=== PATIENT | female | born 1945 | race Caucasian/White ===

== ENCOUNTER → 2017-05-11 09:45 | Outpatient (CLI) | payer MEDICARE, SELFPAY ==
--- NOTE | 2017-05-11 09:49 | MM_ITS ---
MM Dig screening mamm BI w/CAD CAD Screening ORDERING PHYSICIAN : Jose Mendoza MD PATIENT AGE: 72 years GENDER: Female COMPARISON: Previous mammograms: January 2015, April 2016, December 2012 outside studies INDICATION: Routine screening. No hormones. No new complaints. Noncontributory family history. TECHNIQUE: Standard CC and MLO images were obtained. R2 CAD reviewed. FINDINGS: Minimal fibroglandular elements in both breast with moderate fatty replacement bilaterally. Calcified vascular structures bilaterally again noted. No dominant mass nor suspicious calcifications either breast. RIGHT BREAST:Stable right breast follow-up in one year LEFT BREAST:Left breast appears stable since 2014. No new findings. Follow-up in one year IMPRESSION: Negative Stable bilateral mammogram with no new areas of concern. BI-RADS Category: 1 Negative RECOMMENDED FOLLOW-UP: 1YR - 1 YEAR FOLLOW-UP (A letter has been sent to the patient regarding results of the study.) In
== END ==
PROVIDERS: Family Provider Internal Medicine Adolescent Medicine; PCP Internal Medicine Adolescent Medicine; Visit Provider Internal Medicine Adolescent Medicine
DX: Z12.31 Encounter for screening mammogram for malignant neoplasm of breast (principal)
CPT/HCPCS: 77067

== ENCOUNTER → 2017-05-31 14:25 | Outpatient (CLI) | payer MEDICARE, SELFPAY ==
--- NOTE | 2017-05-31 14:38 | CT_ITS ---
CT abdomen pelvis wo con CLINICAL INDICATION: Follow-up adrenal mass ITS.REASON: RENAL MASS ORDERING PHYSICIAN: Jose Mendoza MD PATIENT AGE: 72 years COMPARISON: 08/08/2013 TECHNIQUE: Axial images obtained with sagittal and coronal reformats. All CT scans at the facility use one or more dose reduction, viz: automated exposure control; ma/kV adjustment per patient size (including targeted exams where dose is matched to indication; i.e. head); or iterative reconstruction technique. PROCEDURE: Oral Contrast: None IV Contrast: None . FINDINGS: No acute finding in the lower or active. There are is however severe coronary artery calcifications. The liver, spleen, and gallbladder have an unremarkable unenhanced appearance. There is mild fatty infiltration of the pancreas with scattered small nodes in the mesentery's. There are bilateral adrenal nodules measuring up to 2.4 cm on the right. Nodularity is present involving the left adrenal gland with 2 nodules present measuring 1.2 and 1 cm. These nodules are unchanged. No new nodules are evident. The right adrenal nodule is slightly more dense than before however, the size is unchanged. The interval stability favors adrenal adenomas. There are bilateral parapelvic renal cysts. A 3 mm nonobstructing stone is present in the upper pole the right kidney. No intestinal obstruction or free air. There is diverticulosis of the descending and sigmoid colon but no evidence of diverticulitis. No evidence of appendicitis. No pelvic mass or focal inflammatory change. There has been prior hysterectomy. There is mild wedging of L1, L3, and L5 unchanged. IMPRESSION: 1. Overall stable CT appearance of the abdomen and pelvis. 2. No change bilateral adrenal nodules consistent with adenomas. 3. Bilateral parapelvic renal cysts with 3 mm nonobstructing stone in the right kidney 4. Colonic diverticulosis
== END ==
PROVIDERS: PCP Internal Medicine Adolescent Medicine; Visit Provider Internal Medicine Adolescent Medicine
DX: N28.89 Other specified disorders of kidney and ureter (principal)
CPT/HCPCS: 74176

== ENCOUNTER → 2018-06-13 08:39 | Outpatient (CLI) | payer MEDICARE, SELFPAY ==
[2018-06-13 15:08] LABS: Blood Urea Nitrogen 23 mg/dL (7-18); Calcium 9.6 mg/dL (8.5-10.1); Carbon Dioxide 28 mmol/L (21.0-32.0); Chloride 105 mmol/L (98-107); Creatinine,Serum 1.31 mg/dL (0.55-1.02); Estimated Glomerular Filt Rate 40 ml/min (>60); GFR (African American) 48 ML/MIN (>60); Glucose 81 mg/dL (74-106); Sodium 143 mmol/L (136-145)
== END ==
PROVIDERS: PCP Internal Medicine Adolescent Medicine; Visit Provider Internal Medicine Adolescent Medicine
DX: E78.5 Hyperlipidemia, unspecified (principal); I25.10 Atherosclerotic heart disease of native coronary artery without angina pectoris; I10 Essential (primary) hypertension; E55.9 Vitamin D deficiency, unspecified
CPT/HCPCS: 36415; 80048

== ENCOUNTER → 2018-06-16 08:45 | Outpatient (CLI) | payer MEDICARE, SELFPAY ==
--- NOTE | 2018-06-16 08:53 | MM_ITS ---
MM Dig screening mamm BI w/CAD ORDERING PHYSICIAN : Jose Mendoza MD PATIENT AGE: 73 years GENDER: Female COMPARISON: April 2017 and April 2016 bilateral screening mammogram Mammogram. No new complaints. Noncontributory family history. Normal TECHNIQUE: Standard CC and MLO images were obtained. R2 CAD reviewed. additional nipple profile cc axillary cc views included FINDINGS: Generalized fatty replacement with low density fatty breast. Very Minimal residual fibroglandular elements bilateral. RIGHT BREAST:No new areas of significant concern 3 or 4 very tiny scattered benign punctate calcifications at the medial right breast are stable LEFT BREAST:No new areas of concern Pacemaker overlying the deep left breast, likely new since last year IMPRESSION: ...... Stable mammogram No new areas of significant concern. Fatty replacement low-density breast. Routine follow-up BI-RADS Category: 1 Negative RECOMMENDED FOLLOW-UP: 1YR 1 YEAR FOLLOW-UP (A letter has been sent to the patient regarding results of the study.)
== END ==
PROVIDERS: PCP Internal Medicine Adolescent Medicine; Visit Provider Internal Medicine Adolescent Medicine
DX: Z12.31 Encounter for screening mammogram for malignant neoplasm of breast (principal)
CPT/HCPCS: 77067

== ENCOUNTER → 2019-08-01 14:20 | Outpatient (CLI) | payer MEDICARE, SELFPAY ==
--- NOTE | 2019-08-01 14:32 | XR_ITS ---
PROCEDURE: XR CERVICAL SPINE 5V CLINICAL INDICATION: CERVICALGIA COMPARISON: , None FINDINGS: C1 through C6 are adequately visualized on the lateral projection and show normal curvature and alignment. C7 appears grossly normal on the AP and oblique views. The neural foramina are not adequately evaluated on the oblique views due to improper positioning. The prevertebral soft tissues are normal and the odontoid is normal. IMPRESSION: No acute findings but neural foramina are not adequately visualized Dictated by: Dr. Cameron Chapa MD 08/01/2019 15:[address] Cameron Chapa MD in [place] 08/01/2019 15:22
--- NOTE | 2019-08-01 14:32 | XR_ITS ---
PROCEDURE: XR SHOULDER RT MIN 2V CLINICAL INDICATION: RT SHOULDER PAIN,CERVICALGIA COMPARISON: CXR1 CHEST-PORTABLE from 12/21/2013 FINDINGS: There is tapering of the distal right clavicle and there is a small bone fragment sitting between the clavicle and acromion process of the scapula superior aspect and these probably are posttraumatic changes. The humeral head right somewhat high in the glenoid probably secondary to some degree of rotator cuff pathology. There are no soft tissue calcifications. The appearance of the AC joint is unchanged from a previous portable chest film 12/21/2013. IMPRESSION: Probable posttraumatic changes right AC joint along with a high-riding humeral head as noted Dictated by: Dr. Cameron Chapa MD 08/01/2019 15:[address] Cameron Chapa MD in [place] 08/01/2019 15:18
== END ==
PROVIDERS: PCP Internal Medicine Adolescent Medicine; Visit Provider Internal Medicine Adolescent Medicine
DX: M25.511 Pain in right shoulder (principal); M54.2 Cervicalgia
CPT/HCPCS: 72050; 73030

== ENCOUNTER 2019-10-03 08:00 | Outpatient (RCR) | payer MEDICARE, SELFPAY | END 2019-10-17 16:37 | disposition home or self-care (01) | LOC: OT 08:00 | PROVIDERS: PCP Internal Medicine Adolescent Medicine; Visit Provider Orthopaedic Surgery | DX: M25.511 Pain in right shoulder (principal); G89.29 Other chronic pain; M19.211 Secondary osteoarthritis, right shoulder; M67.911 Unspecified disorder of synovium and tendon, right shoulder; M75.21 Bicipital tendinitis, right shoulder | CPT/HCPCS: 97010; 97110; 97165; 97530 ==

== ENCOUNTER → 2020-03-05 09:46 | Outpatient (CLI) | payer MEDICARE, SELFPAY ==
--- NOTE | 2020-03-05 09:49 | MM_ITS ---
PROCEDURE: MM DIG SCREENING MAMM BI W/CAD Digital Breast Tomosynthesis Included CLINICAL INDICATION: SCREENING COMPARISON: [facility] DIG MAMM-SCREEN NADYA W/CAD from 05/05/2016 [facility] MM Dig screening mamm BI w/CAD from 05/11/2017 [facility] MM Dig screening mamm BI w/CAD from 06/16/2018 TECHNIQUE: Standard CC and MLO images and 3D Tomosynthesis was obtained. R2 CAD reviewed. FINDINGS: The breasts are composed primarily of fat with scattered fibroglandular densities seen throughout each breast. The findings are bilateral and symmetrical. There is moderate arterial calcification bilaterally. There is a cardiac device projecting over the left axilla. There is a mole marker lower inner quadrant right breast. There is no suspicious lesion and no suspicious microcalcifications. IMPRESSION: Fatty type breast parenchyma with no suspicious lesions seen BI-RAD Category: 2 Benign Finding(s) FOLLOW-UP: 1YR 1 Year Follow-up (A letter has been sent to the patient regarding results of the study.) Dictated by: Dr. Cameron Chapa MD 03/06/2020 12:15 Dr. Cameron Chapa MD in [place] 03/06/2020 12:15
== END ==
PROVIDERS: PCP Internal Medicine Adolescent Medicine; Visit Provider Internal Medicine Adolescent Medicine
DX: Z12.31 Encounter for screening mammogram for malignant neoplasm of breast (principal)
CPT/HCPCS: 77063; 77067

== ENCOUNTER → 2020-03-27 11:06 | Outpatient (CLI) | payer MEDICARE, SELFPAY ==
--- NOTE | 2020-03-27 11:11 | XR_ITS ---
PROCEDURE: XR HIP LT 2-3V W/PELVIS CLINICAL INDICATION: LT HIP PAIN,SACROILTIS COMPARISON: CT ABDPELWO CT abdomen pelvis wo con from 05/31/2017 FINDINGS: There are mild osteoarthritic changes of the left hip. No acute fracture or dislocation is evident. The pelvis is tilted with the right-sided lower than the left. There are degenerative changes in the lumbar spine and there is an intramedullary francis in the right femur. IMPRESSION: Mild osteoarthritis the left hip. Dictated by: Prince Garcia MD 03/27/2020 15:41 Prince Garcia MD in [place] 03/27/2020 15:41
--- NOTE | 2020-03-27 11:11 | XR_ITS ---
PROCEDURE: XR SACROILIAC JOINT BI MIN 3V CLINICAL INDICATION: LT HIP PAIN,SACROILTIS COMPARISON: No exams were available for comparison FINDINGS: There is mild sclerosis along the lower margin of the SI joints on both sides. No fracture or dislocation. No lytic changes. Other findings:None. IMPRESSION: Mild osteoarthritic changes of the SI joints. Dictated by: Prince Garcia MD 03/27/2020 15:45 Prince Garcia MD in [place] 03/27/2020 15:45
== END ==
PROVIDERS: PCP Internal Medicine Adolescent Medicine; Visit Provider Internal Medicine Adolescent Medicine
DX: M25.552 Pain in left hip (principal); M46.1 Sacroiliitis, not elsewhere classified
CPT/HCPCS: 72202; 73502

== ENCOUNTER → 2020-04-15 09:49 | Outpatient (POV) | payer MEDICARE, SELFPAY ==
[2020-04-15 10:05] VITALS: BP 122/78; PULSE 74; RESP 18; O2SAT 98; BMI 35.0
--- NOTE | 2020-04-15 10:35 | HMH.PMCON ---
Assessment and Plan (1) Sacroiliitis Status: Chronic Category: Medical Code(s): M46.1 - Sacroiliitis, not elsewhere classified - Assessment and plan all Dx Assessment and Plan for all problems:: We will schedule the patient for left SI joint injection. She is failed other conservative measures of treatment. I will follow-up with her after her injection reassess her symptoms at that time she has been instructed to call the office if she has any issues prior to her next appointment. Dr. Sorensen has reviewed this note and agrees with this plan of care. This note was dictated using voice recognition software and may contain errors or omissions HPI - Data of Consult Consult date: 04/15/20 Requesting Physician: Odilia Reed APRN Primary Care Provider: Jose Mendoza MD - Consult Narrative Reason for consult: Left SI joint pain History of present illness: Ms. Stone is a 75 year old female who presents today for consultation regards to her left SI joint pain. She has had this pain for 6 weeks. She rates it a 5 out of 10. She is a positive Carmen test SI joint compression test Den's test and distraction test. Patient has tried [place] and tizanidine with no relief. She is had 6 weeks of conservative medication management with no relief. Patient I discussed SI joint injections. She would like to move forward with this. Patient has radiation of pain however it does not past her left knee. CC: Odilia Reed APRN [facility] History I have reviewed the patient's past medical history: Yes Medical History: Reports:: Anxiety, Coronary Artery Disease, Gastroesophageal Reflux Disease(GERD), Hyperlipidemia, Hypertension, Internal Pacemaker Denies:: Cancer, Diabetes Mellitus Type 1, Diabetes Mellitus Type 2, MRSA *Have you ever received a pneumonia vaccine?: Yes *Have you received a flu vaccine this season?: Yes Other Medical History: Reports: Arthritis Laterality Cases: Right: Other Other Surgeries: Yes: Coronary Stent (x4), Hysterectomy-Total, Pacemaker, Tubal Ligation Amputation: No - *Social History Smoking Status: Never smoker Alcohol Intake: never *Occupational Status:: retired Household Members: spouse *Travel in the last 8 weeks: None - Psychiatric History Pschychiatric History:: Reports:: Anxiety Family Hx:: Hyperlipidemia, Diabetes, Hypertension Review of Systems - Review of Systems ROS General: no recent weight change, no fever, no sleep disturbances Respiratory: no cough, no shortness of air, no recurring pulmonary infections Cardiovascular/Peripheral Vascular: No chest pain, No palpitations, no edema, no shortness of breath. Gastrointestinal: no new onset incontinence, normal bowel movements reported Genitourinary: no new onset incontinence Musculoskeletal: [ left SI joint pain, ] Psychiatric: normal mood/ affect, Neurological: [denies new onset balance issues] Meds Home Medications Medication Instructions Recorded Confirmed Type alendronate 70 mg tablet 70 mg PO QWEEK 12/23/17 08/16/19 History aspirin 81 mg tablet,delayed 81 mg PO DAILY 12/23/17 08/16/19 History release baclofen 10 mg tablet 10 mg PO TID 12/23/17 08/16/19 History calcium carbonate 500 mg (1,250 1 tab PO BID 12/23/17 08/16/19 History mg)-vitamin D3 200 unit tablet furosemide 40 mg tablet 20 mg PO DAILY PRN tab 12/23/17 08/16/19 History hydrocodone 7.5 mg-acetaminophen 1 tab PO Q6H 12/23/17 08/16/19 History 325 mg tablet isosorbide mononitrate 60 mg 60 mg PO DAILY 12/23/17 08/16/19 History tablet,extended release 24 hr lisinopril 40 mg tablet 40 mg PO DAILY 12/23/17 08/16/19 History multivitamin,gs-qjhp-bfwpbakd 1 tab PO DAILY 12/23/17 08/16/19 History nebivolol 2.5 mg tablet 2.5 mg PO DAILY 12/23/17 08/16/19 History pantoprazole 40 mg tablet,delayed 40 mg PO BID 12/23/17 08/16/19 History release pravastatin 80 mg tablet 80 mg PO DAILY 12/23/17 08/16/19 History spironolactone 25 mg tablet 12.5
== END ==
PROVIDERS: PCP Internal Medicine Adolescent Medicine; Visit Provider Clinical Nurse Specialist Family Health
DX: M46.1 Sacroiliitis, not elsewhere classified (principal)
CPT/HCPCS: 99202; G0463

== ENCOUNTER 2020-04-26 09:03 | Day surgery (SDC) | payer MEDICARE, SELFPAY ==
[2020-04-26 09:06] VITALS: BP 176/88; BP 184/91; PULSE 75; PULSE 88; RESP 16; RESP 20; TEMP 37.1; O2SAT 98; BMI 35.2
[2020-04-26 09:36] VITALS: BP 185/84; PULSE 82; RESP 18
--- NOTE | 2020-04-26 09:37 | P.PCN_ITS ---
- Procedure Date: 04/26/20 Time: 09:37 Anesthesiologist:: Adi Sorensen MD Complications:: None Pre-procedure Diagnosis:: Sacroiliitis Post-procedure Diagnosis:: Same Indications for Procedure:: Patient is a pleasant 75-year-old white female who we are treating for left- sided hip pain. She is tender over her left SI joint. She is positive Den's test on left side. She is positive Carmen test on left side. She has a positive SI joint compression test on the left side. She has a positive SI distraction test on the left side. We will plan on left SI joint junction under fluoroscopy today. Procedure Details:: Left SI joint injection under fluoroscopy Informed consent was obtained and the risks and benefits of the procedure was explained to the patient. Patient was taken to the procedure room. Patient was placed prone on the procedure table. The left hip was prepped using ChloraPrep. The skin and subcutaneous tissues were anesthetized using lidocaine. I placed a 22-gauge spinal needle into the inferior aspect of the left SI joint. Needle placement was confirmed with dye. After this we injected 5 mL bupivacaine 0.25% and Depo-Medrol 40 mg into the left SI joint. The patient tolerated the procedure well with no complication. Plan and Disposition:: We will follow-up with her in 2 weeks. Will reevaluate symptoms at that time.
[2020-04-26 09:38] VITALS: BP 180/85; PULSE 82; RESP 18; O2SAT 98
== END 2020-04-26 09:50 | disposition home or self-care (01) ==
LOC: SC.PAINP 09:04
PROVIDERS: PCP Internal Medicine Adolescent Medicine; Visit Provider Anesthesiology
DX: M46.1 Sacroiliitis, not elsewhere classified (principal); I25.10 Atherosclerotic heart disease of native coronary artery without angina pectoris; I10 Essential (primary) hypertension; E78.5 Hyperlipidemia, unspecified; K21.9 Gastro-esophageal reflux disease without esophagitis; Z88.8 Allergy status to other drugs, medicaments and biological substances; Z95.818 Presence of other cardiac implants and grafts; Z95.0 Presence of cardiac pacemaker
CPT/HCPCS: 27096; G0260; J1040

== ENCOUNTER → 2020-05-09 08:41 | Outpatient (POV) | payer MEDICARE, SELFPAY ==
--- NOTE | 2020-05-09 09:04 | P.CONS_ITS ---
[facility] Pain Management SOAP Note Subjective:: Patient is a pleasant 75-year-old white female who presents today for follow-up after left SI joint injection. Patient did not get any relief from her left SI joint. She has no updated imaging of her lumbar spine she rates her pain a 7 out of 10 mostly. Most the patient states she is in her low back and is now running down her left leg. We discussed a lumbar MRI given her symptomology I think this would benefit her. She does have a history of degenerative disc disease. ROS General: no recent weight change, no fever, no sleep disturbances Respiratory: no cough, no shortness of air, no recurring pulmonary infections Cardiovascular/Peripheral Vascular: No chest pain, No palpitations, no edema, no shortness of breath. Gastrointestinal: no new onset incontinence, normal bowel movements reported Genitourinary: no new onset incontinence Musculoskeletal: [Back pain, leg pain] Psychiatric: normal mood/ affect, [denies depression], [denies anxiety] Neurological: [denies new onset weakness in extremities], [denies new onset balance issues] Objective:: Physical Exam General: Alert and oriented x3, no acute distress, pleasant and cooperative, [on room air] Lungs: Resps E/U, Symmetrical chest expansion, Eyes: PERRL Musculoskeletal: Flexion and extension of lumbar spine somewhat guarded secondary to pain, deep tendon reflexes normal, strength in upper and lower extremities [5/5], [abnormal gait noted] Neurological: speech clear, military source operations specialist equal, no gross sensory deficits Assessment:: Back pain, leg pain, SI joint pain, sacroiliitis, degenerative disc disease Plan:: We will schedule the patient for a lumbar MRI. She does have a pacemaker if this is not compatible with the MRI we will get a CT scan of her lumbar spine. Patient has not had any recent diagnostic imaging. She is tried and failed conservative measures for the last 6 weeks including SI joint injections, anti- inflammatories, medications. I will follow-up with her after her imaging reassess her symptoms at that time she has been instructed to call the office if she has any issues prior to her next appointment. Dr. Sorensen has reviewed this note and agrees with this plan of care. This note was dictated using voice [employer] software and may contain errors or omissions [facility] History I have reviewed the patient's past medical history: Yes Medical History: Reports:: Anxiety, Coronary Artery Disease, Gastroesophageal Reflux Disease(GERD), Hyperlipidemia, Hypertension, Internal Pacemaker Denies:: Cancer, Diabetes Mellitus Type 1, Diabetes Mellitus Type 2, MRSA, Seizures *Have you ever received a pneumonia vaccine?: No *Have you received a flu vaccine this season?: No Other Medical History: Reports: Arthritis Laterality Cases: Right: Other Other Surgeries: Yes: Cardiac Catheterization (stent placement 4), Coronary Sten t (x4), Hysterectomy-Total, Pacemaker, Tubal Ligation, Other (dental implants) Amputation: No Fractures: Yes (right leg (screws and francis)) - *Social History Smoking Status: Never smoker Alcohol Intake: never *Occupational Status:: retired Housing: house Household Members: spouse *Travel in the last 8 weeks: None - Psychiatric History Pschychiatric History:: Reports:: Anxiety Family Hx:: Hyperlipidemia, Diabetes, Hypertension
[2020-05-09 09:20] VITALS: BP 147/71; PULSE 74; RESP 18; O2SAT 98; BMI 35.0
== END ==
PROVIDERS: PCP Internal Medicine Adolescent Medicine; Visit Provider Clinical Nurse Specialist Family Health
DX: M54.9 Dorsalgia, unspecified (principal); M46.1 Sacroiliitis, not elsewhere classified; M79.606 Pain in leg, unspecified
CPT/HCPCS: 99212; G0463

== ENCOUNTER → 2020-05-16 12:33 | Outpatient (CLI) | payer MEDICARE, SELFPAY ==
--- NOTE | 2020-05-16 12:35 | CT_ITS ---
PROCEDURE: CT LUMBAR SPINE WO CON CLINICAL HISTORY: BACK PAIN COMPARISON: CT ABDPELWO CT abdomen pelvis wo con from 05/31/2017 TECHNIQUE: Axial images obtained with sagittal and coronal reformats. All CT scans at the facility use one or more dose reduction, viz: automated exposure control, ma/kV adjustment per patient size (including targeted exams where dose is matched to indication, i.e. head), or iterative reconstruction technique. FINDINGS: There is generalized osteopenia. Mild wedge compression changes are present at L5-L3 and L1. These areas however had a similar appearance compared to previous abdomen CT. L2-L3: Mild chronic wedge compression changes of L3. Mild bulging disc at L2-L3 with mild distal foraminal narrowing bilaterally. L3-L4: Mild concentric bulging disc with facet ligamentum hypertrophy with mild distal foraminal narrowing. L4-5: Mild chronic wedge compression changes of L5. Bulging disc is present which is eccentric toward the right with a suggestion of a small broad-based central disc protrusion also slightly eccentric toward the right. Facet and ligamentum hypertrophy is present with canal stenosis and moderate bilateral distal foraminal narrowing. Facet arthritic changes are present at this level. There is severe right lateral recess narrowing. L5-S1: Degenerative disc disease with bulging disc slightly eccentric toward the left with facet and ligamentum hypertrophy and mild bilateral foraminal narrowing. Incidental note is made of colonic diverticulosis. Left kidney is small. There is a right adrenal nodule at 2 cm with indeterminate density at approximately 15 Hounsfield units and a small calcification centrally. This nodule however is stable compared to 05/31/2017. IMPRESSION: 1. Chronic wedge compression changes of L1, L3, and L5. No acute fracture apparent. 2. Multilevel lumbar spondylosis. Please see above for detailed description at each level. There is canal stenosis at L4-5. 3. Stable 2 cm right adrenal nodule Dictated by: Prince Garcia MD 05/16/2020 15:23 Prince Garcia MD in [place] 05/16/2020 15:23
== END ==
PROVIDERS: PCP Internal Medicine Adolescent Medicine; Visit Provider Clinical Nurse Specialist Family Health
DX: M54.5 Low back pain (principal)
CPT/HCPCS: 72131

== ENCOUNTER → 2020-05-23 08:42 | Outpatient (POV) | payer MEDICARE, SELFPAY ==
--- NOTE | 2020-05-23 09:53 | HMH.PAINSOAP ---
[facility] Pain Management SOAP Note Subjective:: Patient is a 75-year-old white female who presents today for follow-up after CT. Patient has CT due to her pacemaker. Patient has a compression fracture at L4-L5. According to the CT report it does not look acute. Patient's main pain is in her left leg. She does have a bulging disc at L5-S1 as well?more eccentric to the left. Patient and I discussed epidural injection she is agreeable. She is not on any anticoagulation therapy. Patient is frustrated with her pain level today she is on [place] from her primary care physician I discussed adding gabapentin however she is tried and failed this in the past. Patient I discussed Lyrica 75 mg at bedtime she is agreeable. ROS General: no recent weight change, no fever, no sleep disturbances Respiratory: no cough, no shortness of air, no recurring pulmonary infections Cardiovascular/Peripheral Vascular: No chest pain, No palpitations, no edema, no shortness of breath. Gastrointestinal: no new onset incontinence, normal bowel movements reported Genitourinary: no new onset incontinence Musculoskeletal: Back pain, leg pain Psychiatric: normal mood/ affect Neurological: [denies new onset weakness in extremities], [denies new onset balance issues] Objective:: Physical Exam General: Alert and oriented x3, no acute distress, pleasant and cooperative, [on room air] Lungs: Resps E/U, Symmetrical chest expansion, Eyes: PERRL Musculoskeletal: Flexion and extension of lumbar spine somewhat guarded secondary to pain, deep tendon reflexes normal, strength in upper and lower extremities [5/5], [abnormal gait noted] Neurological: speech clear, chemist proteins equal, no gross sensory deficits Assessment:: Degenerative disc disease lumbar spine lumbar radiculopathy, compression fracture, back pain Plan:: We will set the patient up for an L4-L5 lumbar epidural steroid injection to start with. If the patient does not get relief from this she may be a kyphoplasty candidate in the future. Patient does have a history of osteoporosis. I will follow-up with the patient after her injection reassess her symptoms at that time she has been instructed to call the office if she has any issues prior to her next appointment. We will also start her on Lyrica 75 [address] Sorensen has reviewed this note and agrees with this plan of care. This note was dictated using voice recognition software and may contain errors or omissions [facility] History I have reviewed the patient's past medical history: Yes Medical History: Reports:: Anxiety, Coronary Artery Disease, Gastroesophageal Reflux Disease(GERD), Hyperlipidemia, Hypertension, Internal Pacemaker Denies:: Cancer, Diabetes Mellitus Type 1, Diabetes Mellitus Type 2, MRSA, Seizures *Have you ever received a pneumonia vaccine?: Yes *Have you received a flu vaccine this season?: Yes Other Medical History: Reports: Arthritis Laterality Cases: Right: Other Other Surgeries: Yes: Cardiac Catheterization (stent placement 4), Coronary Stent (x4), Hysterectomy-Total, Pacemaker, Tubal Ligation, Other (dental implants) Amputation: No Fractures: Yes (right leg (screws and francis)) - *Social History Smoking Status: Never smoker Alcohol Intake: never *Occupational Status:: other Housing: house Household Members: spouse *Travel in the last 8 weeks: None - Psychiatric History Pschychiatric History:: Reports:: Anxiety Family Hx:: Hyperlipidemia, Diabetes, Hypertension
[2020-05-23 12:36] VITALS: BP 153/74; PULSE 81; RESP 18; O2SAT 98; BMI 35.0
== END ==
PROVIDERS: Visit Provider Clinical Nurse Specialist Family Health
DX: M51.16 Intervertebral disc disorders with radiculopathy, lumbar region (principal); M80.88XA Other osteoporosis with current pathological fracture, vertebra(e), initial encounter for fracture
CPT/HCPCS: 99212; G0463

== ENCOUNTER 2020-05-31 10:58 | Day surgery (SDC) | payer MEDICARE, SELFPAY ==
[2020-05-31 11:11] VITALS: BP 144/82; PULSE 77; RESP 18; TEMP 36.6; O2SAT 98; BMI 35.2
[2020-05-31 11:43] VITALS: BP 131/92; BP 132/95; PULSE 84; PULSE 85; RESP 18; O2SAT 98
--- NOTE | 2020-05-31 11:46 | HMH.PMPROC ---
- Procedure Date: 05/31/20 Time: 11:46 Anesthesiologist:: Adi Sorensen MD Complications:: None Pre-procedure Diagnosis:: Degenerative disc disease of lumbar spine with lumbar radicular symptoms and increasing left hip and left leg pain. Post-procedure Diagnosis:: Same Indications for Procedure:: This patient is a pleasant 75-year-old white female who we are treating for low back pain and left hip and left leg pain. We will do lumbar epidural steroid injection to see if this will help with her pain symptoms. Procedure Details:: Informed consent was obtained and the risk and benefits of the procedure was explained to the patient. The patient was taken to the procedure room. The patient was placed prone on the procedure table. The patient was prepped and draped in sterile fashion. C-arm fluoroscopy was used to view the lumbar spine. Skin and subcutaneous tissues were anesthetized using lidocaine. I placed an 18-gauge epidural needle and advanced into the L4-L5 interspace using fluoroscopic guidance and [id number] to air. After confirmation of needle placement in the epidural space with dye I injected 2 mL of lidocaine 1.5% with Depo-Medrol 80 mg. Patient tolerated the procedure well with no complications. Plan and Disposition:: We will follow-up with her in 2 weeks. Will reevaluate symptoms at that time.
[2020-05-31 11:58] VITALS: BP 151/74; PULSE 81; RESP 20; O2SAT 98
== END 2020-05-31 11:59 | disposition home or self-care (01) ==
LOC: SC.PAINP 10:59
PROVIDERS: PCP Internal Medicine Adolescent Medicine; Visit Provider Anesthesiology
DX: M51.16 Intervertebral disc disorders with radiculopathy, lumbar region (principal); I25.10 Atherosclerotic heart disease of native coronary artery without angina pectoris; Z95.0 Presence of cardiac pacemaker; I10 Essential (primary) hypertension; E78.5 Hyperlipidemia, unspecified; Z88.8 Allergy status to other drugs, medicaments and biological substances; K21.9 Gastro-esophageal reflux disease without esophagitis
CPT/HCPCS: 62323; J1040; Q9966

== ENCOUNTER → 2020-06-24 09:51 | Outpatient (POV) | payer MEDICARE, SELFPAY ==
[2020-06-24 10:02] VITALS: BP 142/78; PULSE 85; RESP 18; O2SAT 98; BMI 35.0
--- NOTE | 2020-06-24 10:06 | P.CONS_ITS ---
[facility] Pain Management SOAP Note Subjective:: Patient is a 75-year-old white female who presents today for follow-up after lumbar epidural steroid injection. She got no relief. Patient has CT due to her pacemaker. Patient has a compression fracture at L4-L5. According to the CT report it does not look acute. Patient's main pain is in her left leg. She does have a bulging disc at L5-S1 ?more eccentric to the left. Patient states that the Lyrica has been beneficial for her and helps her rest well at nighttime. We discussed increasing this to twice a day. She is also wanting to move forward with the surgical consultation. She would like to be referred to Dr. Schaefer in [place]. She rates her pain today a 9 out of 10. ROS General: no recent weight change, no fever, no sleep disturbances Respiratory: no cough, no shortness of air, no recurring pulmonary infections Cardiovascular/Peripheral Vascular: No chest pain, No palpitations, no edema, no shortness of breath. Gastrointestinal: no new onset incontinence, normal bowel movements reported Genitourinary: no new onset incontinence Musculoskeletal: Back pain, leg pain Psychiatric: normal mood/ affect Neurological: [denies new onset weakness in extremities], [denies new onset balance issues] Objective:: ROS General: no recent weight change, no fever, no sleep disturbances Respiratory: no cough, no shortness of air, no recurring pulmonary infections Cardiovascular/Peripheral Vascular: No chest pain, No palpitations, no edema, no shortness of breath. Gastrointestinal: no new onset incontinence, normal bowel movements reported Genitourinary: no new onset incontinence Musculoskeletal: Back pain, leg pain Psychiatric: normal mood/ affect, Neurological: [denies new onset weakness in extremities], [denies new onset balance issues] Assessment:: degenerative disc disease lumbar spine lumbar radiculopathy and back pain Plan:: We will send the patient to Dr. Schaefer in [place]. Patient is unable to have an MRI due to her pacemaker. Patient does have a recent CT scan. We will continue her Lyrica 75 mg will increase it to twice a day. We will see her after her consultation with Dr. Schaefer. Dr. Sorensen has reviewed this note and agrees with this plan of care. This note was dictated using voice recognition software and may contain errors or omissions [facility] History I have reviewed the patient's past medical history: Yes Medical History: Reports:: Anxiety, Coronary Artery Disease, Gastroesophageal Reflux Disease(GERD), Hyperlipidemia, Hypertension, Internal Pacemaker Denies:: Cancer, Diabetes Mellitus Type 1, Diabetes Mellitus Type 2, MRSA, Seizures *Have you ever received a pneumonia vaccine?: Yes *Have you received a flu vaccine this season?: Yes Other Medical History: Reports: Arthritis. Denies: Blood Transfusion Reaction Laterality Cases: Right: Other Other Surgeries: Yes: Cardiac Catheterization, Coronary Stent, Hysterectomy- Total, Pacemaker, Tubal Ligation, Other (dental implants) Amputation: No Fractures: Yes (right leg (screws and francis)) - *Social History Smoking Status: Never smoker Alcohol Intake: never *Occupational Status:: other Housing: house Household Members: spouse *Travel in the last 8 weeks: None - Psychiatric History Pschychiatric History:: Reports:: Anxiety Family Hx:: Hyperlipidemia, Diabetes, Hypertension
== END ==
PROVIDERS: PCP Internal Medicine Adolescent Medicine; Visit Provider Clinical Nurse Specialist Family Health
DX: M51.16 Intervertebral disc disorders with radiculopathy, lumbar region (principal)
CPT/HCPCS: 99212; G0463

== ENCOUNTER → 2020-09-12 09:00 | Outpatient (CLI) | payer MEDICARE, SELFPAY ==
[2020-09-12 14:08] LABS: Chloride 105 mmol/L (98-107); Potassium 4.5 mmoL/L (3.5-5.1); Sodium 141 mmol/L (136-145)
[2020-09-12 14:11] LABS: Anion Gap 17.5 mEq/L (5-15); Blood Urea Nitrogen 32 mg/dl (7-17); Calcium 9.4 mg/dl (8.4-10.2); Carbon Dioxide 23 mmol/L (22.0-30.0); Estimated Glomerular Filt Rate 40 ml/min (>60); GFR (African American) 48 ML/MIN (>60); Glucose 128 mg/dl (74-100)
== END ==
PROVIDERS: Visit Provider Internal Medicine Adolescent Medicine
DX: I10 Essential (primary) hypertension (principal)
CPT/HCPCS: 36415; 80048

== ENCOUNTER → 2020-10-14 09:23 | Outpatient (POV) | payer MEDICARE, SELFPAY ==
[2020-10-14 09:36] VITALS: BP 172/71; PULSE 69; RESP 18; O2SAT 97; BMI 34.5
--- NOTE | 2020-10-14 09:55 | HMH.PAINSOAP ---
[facility] Pain Management SOAP Note Subjective:: Patient is a 75-year-old white female who presents today for follow-up. The patient recently underwent surgical intervention for her chronic low back pain with Dr. Schaefer in [place]. She says tomorrow will make 6 weeks postoperative. She says that she got excellent relief with her low back pain, however, following the surgery she was noted to have multiple rib to rib fractures following the surgery. The patient says that she is now having bilateral rib pain. She also reports to be having pain from her knee to her foot on the right side since the surgery. This is new for her as well. Patient does have notable swelling to her calf area and into the right ankle. She also has redness noted to the area. She says that she did not have these symptoms prior to the procedure. She is now having difficulty standing or walking on her right lower extremity. She reports she contacted Dr. Kumar's office and was informed that her pain in her right lower extremity is due to her surgery and the pain will subside. Patient says that she feels something different may be going on. She has had a right knee replacement in the past and is concerned that she may be having issues with her hardware. Patient's pain is a 7 out of 10 today. She also reports to be having some worsening shortness of breath since her surgery. Patient has requested an x-ray of her right knee. Review of Systems General: No recent weight changes, no fever, no sleep disturbances Respiratory: No cough, shortness of breath intermittent, no recurring pulmonary infections Cardiovascular/peripheral vascular: No chest pain, no palpitations, no edema, no shortness of breath Gastrointestinal: No new onset incontinence, normal bowel movements reported Genitourinary: No new onset incontinence Musculoskeletal: Right lower extremity pain with swelling and redness Psychiatric: [Normal mood/affect] Neurological: Pain right lower extremity with weakness Objective:: Physical exam General: Alert and oriented x3, no acute distress, pleasant and cooperative, [on room air] Lungs: Respirations even and unlabored, symmetrical chest expansion Eyes: PERRL Musculoskeletal: Flexion and extension of right lower extremity somewhat guarded secondary to pain, strength in upper and lower extremities [5/5], [antalgic gait noted] Neurological: Speech clear, [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 This may help with her acute pain to this area at this time. Right knee pain?the patient has requested a x-ray to determine if there has been a change in her hardware. She is status postn right knee replacement. Right lower extremity pain?patient does have edema along with redness and swelling to this area. She is also reporting to have some intermittent shortness of breath since surgery. We will contact Dr. Poon's office regarding patient's symptoms. Patient may need to undergo a Doppler of her right lower extremity. She is 6 weeks postoperative spine surgery. She does have 2+ pitting edema to her right calf and ankle. She has generalized edema noted to her right knee. Degenerative disc disease lumbar spine with lumbar radiculopathy symptoms?we will refill the patient's Lyrica 75 mg 1 tablet p.o. twice daily. We will give the patient 3 months medication. We will follow up with the patient in 2 weeks to review her x-ray of her right knee and see if the compounding cream has helped. We will contact Dr. Poon's office regarding Doppler of the right lower extremity. His office was contacted today, voicemail was left. Patient has been instructed to contact clinic if she has any concerns before next appointment. [facility] History I h
--- NOTE | 2020-10-14 10:05 | XR_ITS ---
PROCEDURE: XR KNEE RT 3V CLINICAL INDICATION: RT KNEE PAIN COMPARISON: No exams were available for comparison FINDINGS: There is diffuse generalized osteopenia. There is an intramedullary francis in the distal femur 4 stabilizing screws. There is an old distal femur fracture with remodeling of the bone with good alignment. There is a proximal tibial and fibular fracture also with remodeling and good alignment no acute fracture or dislocation is evident. There are mild osteoarthritic changes involving all 3 compartments. Generalized vascular calcification is noted. IMPRESSION: Old distal femur and proximal tib fib fracture status post ORIF distal femur. Generalized osteopenia with mild osteoarthritic change Dictated by: Prince Garcia MD 10/14/2020 12:20 Prince Garcia MD in [place] 10/14/2020 12:20
--- NOTE | 2020-10-14 11:10 | CA_ITS ---
APPROVED REPORT Right Lower Extremity Venous Study for DVT. Flight Agent: Rosa M Tello RVT Indications Lower Extremity Pain: Right Lower Extremity Edema: Right EDEMA/REDNESS RT CALF,S/P BACK SURGERY 6 WKS AGO Risk Factors Obesity Post OP Medications Aspirin Vein Imaging CFV (R): compressive, spontaneous, phasic, augmentation FEM (R): compressive, spontaneous, phasic, augmentation POP (R): compressive, spontaneous, phasic, augmentation PTV (R): Compressible GSV (R): Compressible Peroneals (R):Non-Compressible, Thrombus GAS (R): Compressible Findings Study suggests thrombus of the right peroneal vein, other veins of the right lower extremity are normal. Study suggests no evidence of SVT of the right lower extremity. Conclusion Study suggests thrombus of the right peroneal vein, other veins of the right lower extremity are normal. Study suggests no evidence of SVT of the right lower extremity. Critical Notification Physician Notified Date: 10/14/2020 Time: 11:45 Physician Name: Monse Mendoza's office Electronically signed by : Prince Garcia MD 10/14/2020 16:31:52
== END ==
PROVIDERS: PCP Internal Medicine Adolescent Medicine; Visit Provider Clinical Nurse Specialist Family Health
DX: M51.16 Intervertebral disc disorders with radiculopathy, lumbar region (principal); R06.02 Shortness of breath; M25.561 Pain in right knee; M19.90 Unspecified osteoarthritis, unspecified site
CPT/HCPCS: 73562; 93971; 99212; G0463

== ENCOUNTER → 2020-10-31 09:43 | Outpatient (POV) | payer MEDICARE, SELFPAY ==
[2020-10-31 09:53] VITALS: BP 137/69; PULSE 76; RESP 18; O2SAT 95; BMI 35.4
--- NOTE | 2020-10-31 10:34 | HMH.PAINSOAP ---
[facility] Pain Management SOAP Note Subjective:: Patient is a 75-year-old white male who presents today for follow-up. The patient was previously seen in the clinic on 10/14/2020. She was following up after surgical intervention with Dr. Schaefer. At that appointment, the patient was having right lower extremity pain from the knee to the ankle. Patient was sent for a Doppler study was noted to have a thrombus of the right peroneal vein. Dr. Poon did start the patient on Xarelto. Patient also had an x-ray of her right knee to evaluate hardware placement. Patient does have a history of a right femur fracture as well as a tibia and fibular fracture. Fractures were not acute in nature. The patient's hardware is intact according to the x-ray. Patient says that she is still having low back pain with radiation into her left leg since her surgery. She says that standing and walking worsen the pain. When she is sitting she has no pain. Patient did have rib fractures bilateral sides immediately following the surgery. She was having severe pain and was noted to have rib fractures on both sides after the surgery. She does report a history of severe osteoporosis. Today, the patient's pain is a 6 out of 10. She is scheduled to follow-up with Dr. Schaefer. She is managed with Lyrica 75 mg 1 tablet p.o. twice daily in our clinic. This is helping her somewhat, however, she is still having quite a bit of pain Patient would like to discuss her options at this point if her surgery proves unsuccessful. She has tried and failed conservative therapies of physical therapy for more than 6 weeks, home stretching?limited, and injective therapy. She did undergo neurosurgical intervention as well. At this point, patient has got minimal relief. Review of Systems General: No recent weight changes, no fever, no sleep disturbances Respiratory: No cough, no shortness of air, no recurring pulmonary infections Cardiovascular/peripheral vascular: No chest pain, no palpitations, no edema, no shortness of breath Gastrointestinal: No new onset incontinence, normal bowel movements reported Genitourinary: No new onset incontinence Musculoskeletal: Low back pain with radiation into left leg, right leg pain since surgery Psychiatric: [Normal mood/affect] Neurological: [Denies weakness in extremities], [denies balance issues] Objective:: Physical exam General: Alert and oriented x3, no acute distress, pleasant and cooperative, [on room air] Lungs: Respirations even and unlabored, symmetrical chest expansion Eyes: PERRL Musculoskeletal: Flexion and extension of lumbar [spine] somewhat guarded secondary to pain, strength in upper and lower extremities [5/5], [antalgic gait noted] Neurological: Speech clear, [shaper 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 She is taking Xarelto at this time. She is recovering from rib fractures post surgery. She is scheduled to follow-up with Dr. Schaefer the second week of November. Patient and I did discuss her options in the clinic today. She has tried conservative therapies?physical therapy for more than 6 weeks, home stretching, oral medications, injective therapy, neurosurgical intervention. Patient has gotten minimal relief. At this point, the patient may benefit from a spinal cord stimulator. She was given educational information today regarding the device. We will plan to see her back in the clinic after her appointment with Dr. Schaefer. If she is continuing to have significant pain. We will schedule her for psychological evaluation to see if she is a candidate for spinal cord stimulation. Patient's daughter does have a spinal cord stimulator that does give her relief for neuropathic symptoms as well. Patient has been instructed to contact the clinic with any concerns before t
== END ==
PROVIDERS: PCP Internal Medicine Adolescent Medicine; Visit Provider Clinical Nurse Specialist Family Health
DX: M51.16 Intervertebral disc disorders with radiculopathy, lumbar region (principal)
CPT/HCPCS: 99212; G0463

== ENCOUNTER → 2020-12-05 09:54 | Outpatient (POV) | payer MEDICARE, SELFPAY ==
[2020-12-05 10:10] VITALS: BP 139/74; PULSE 77; RESP 18; O2SAT 95; BMI 35.0
--- NOTE | 2020-12-05 10:23 | HMH.PAINSOAP ---
[facility] Pain Management SOAP Note Subjective:: Patient is a 75-year-old white female who presents today for follow-up. Patient is continued to have significant pain in her low back with radiation into her bilateral lower extremities, worse on the right side. Patient did have surgical intervention with Dr. Schaefer, but her pain does continue. She reports of gotten a corticosteroid shot with Dr. Dudley at Dr. Schaefer's office on Wednesday of this week. She has not gotten any relief at this point. Patient says that she is planning to follow-up with Dr. Schaefer in 4 weeks. She is unsure if she wants to proceed with any type of interventional therapies. She is not interested in oral opiates. She does get Lyrica in our clinic but does not need refills at this time. We do manage her with Lyrica 75 mg 1 tablet p.o. twice daily. Patient has only been taking the medication once daily due to an increase in blood pressure when she initially began the medication. She says she is no longer having blood pressure issues with the medicine. She did undergo surgical intervention with Dr. Kumar and was noted to have rib fractures following the surgery as well as a noted blood clot to her lower extremity. She is currently on Xarelto. Patient has tried gabapentin in the past with no relief. She has tried physical therapy in the past with no relief as well. At last visit the patient I did discuss possible spinal cord stimulation. The patient's daughter does have a stimulator which does work well for her. Review of Systems General: No recent weight changes, no fever, no sleep disturbances Respiratory: No cough, no shortness of air, no recurring pulmonary infections Cardiovascular/peripheral vascular: No chest pain, no palpitations, no edema, no shortness of breath Gastrointestinal: No new onset incontinence, normal bowel movements reported Genitourinary: No new onset incontinence Musculoskeletal: Low back pain with radiation into lower extremities Psychiatric: [Normal mood/affect] Neurological: [Denies weakness in extremities], [denies balance issues] Objective:: Physical exam General: Alert and oriented x3, no acute distress, pleasant and cooperative Lungs: Respirations even and unlabored, symmetrical chest expansion Eyes: PERRL Musculoskeletal: Flexion and extension of lumbar [spine] somewhat guarded secondary to pain, [antalgic gait noted] Neurological: Speech clear, no gross sensory deficit Assessment:: Degenerative disc disease lumbar spine with lumbar radiculopathy symptoms Plan:: Patient is following up with Dr. Schaefer in 4 weeks. She like to postpone any further injective therapy or intervention until discussing her options with Dr. Schaefer. She will contact the clinic if she does decide to proceed with a psychological evaluation for spinal cord stimulation. Patient has been instructed to contact the clinic to schedule that psychological evaluation after her visit with Dr. Schaefer. Patient has been instructed to contact the clinic with any concerns before the next appointment. Dr. Sorensen has reviewed this note and agrees with this plan of care. This note was dictated using voice recognition software and make contain errors or omissions. [facility] History I have reviewed the patient's past medical history: Yes Medical History: Reports:: Anxiety, Coronary Artery Disease, Gastroesophageal Reflux Disease(GERD), Hyperlipidemia, Hypertension, Internal Pacemaker Denies:: Cancer, Diabetes Mellitus Type 1, Diabetes Mellitus Type 2, MRSA, Seizures *Have you ever received a pneumonia vaccine?: Yes *Have you received a flu vaccine this season?: No Other Medical History: Reports: Arthritis. Denies: Blood Transfusion Reaction Laterality Cases: Right: Other Other Surgeries: Yes: Cardiac Catheterization, Coronary Stent, Hysterectomy-Total, Pacemaker, Tubal Ligation, Other (dental implants) Amputation: No Fractures: Yes (right leg (screws and francis)) - *Social History Sm
== END ==
PROVIDERS: Visit Provider Clinical Nurse Specialist Family Health
DX: M51.16 Intervertebral disc disorders with radiculopathy, lumbar region (principal)
CPT/HCPCS: 99212; G0463

== ENCOUNTER → 2021-02-12 13:12 | Outpatient (CLI) | payer MEDICARE, SELFPAY ==
--- NOTE | 2021-02-12 13:18 | XR_ITS ---
PROCEDURE: XR SHOULDER RT MIN 2V CLINICAL INDICATION: RT shoulder pain COMPARISON: CR XR SHOULDER RT MIN 2V from 08/01/2019 FINDINGS: Mild osteoarthritic change glenohumeral joint. No fracture or dislocation. No lytic or blastic change. Periarticular ossicles noted the acromioclavicular joint superiorly. No subacromial stenosis. IMPRESSION: Osteoarthritis right shoulder. Dictated by: Prince Garcia MD 02/12/2021 13:56 Prince Garcia MD in [place] 02/12/2021 13:56
== END ==
PROVIDERS: PCP Internal Medicine Adolescent Medicine; Visit Provider Orthopaedic Surgery
DX: M25.511 Pain in right shoulder (principal)
CPT/HCPCS: 73030

== ENCOUNTER 2021-02-12 15:00 | Outpatient (RCR) | payer MEDICARE, SELFPAY | END 2021-02-12 16:00 | disposition home or self-care (01) | LOC: OT 15:00 | PROVIDERS: Visit Provider Orthopaedic Surgery | DX: G56.01 Carpal tunnel syndrome, right upper limb (principal) | CPT/HCPCS: 97763 ==

== ENCOUNTER → 2021-03-06 10:24 | Outpatient (CLI) | payer MEDICARE, SELFPAY ==
[2021-03-06 10:51] LABS: Basophils # 0.1 K/mm3 (0-0.2); Basophils % 0.6 % (0.1-2.0); Eosinophils # 0.3 K/mm3 (0.0-0.4); Hematocrit 42.4 % (37.0-47.0); Hemoglobin 13.7 g/dL (12.2-16.2); Lymphocytes # 3.2 K/mm3 (0.7-4.5); Lymphocytes % 37.4 % (10-50); Mean Corpuscular HGB Conc 32.2 g/dL (31.8-35.4); Mean Corpuscular Hemoglobin 30.6 pg (27.0-31.2); Mean Corpuscular Volume 95.2 fl (81-99); Mean Platelet Volume 9.8 fl (7.4-10.4); Monocytes # 0.5 K/mm3 (0.1-1.0); Monocytes % 5.6 % (1.7-9.3); Neutrophils # 4.5 K/mm3 (1.8-7.8); Neutrophils % 53.5 % (37.0-80.0); Platelet Count 236 K/mm3 (142-424); Red Blood Count 4.46 M/mm3 (4.20-5.40); Red Cell Distribution Width 14.4 % (11.5-17.5); White Blood Count 8.4 K/mm3 (4.8-10.8)
[2021-03-06 11:06] LABS: Hemoglobin A1C 5.6 % (4.0-6.0)
[2021-03-06 11:29] LABS: Barbiturates Screen,Urine Negative ng/ml (<200)
[2021-03-06 11:30] LABS: Amphetamine/Metha Screen,Urine Negative ng/ml (<1000); Benzodiazepines Screen,Urine Negative ng/ml (<200)
[2021-03-06 11:31] LABS: Cannabinoid Screen,Urine Negative ng/ml (<50); Methadone Screen,Urine Negative ng/ml (<300)
[2021-03-06 11:32] LABS: Cocaine Screen,Urine Negative ng/ml (<300)
[2021-03-06 11:33] LABS: Opiate Screen,Urine Positive ng/ml (<300); Phencyclidine Screen,Urine Negative ng/ml (<25)
[2021-03-06 11:35] LABS: 25-OH Vitamin D, Total 39.5 ng/mL (30-100)
[2021-03-06 11:47] LABS: Chloride 106 mmol/L (98-107); Potassium 4.7 mmoL/L (3.5-5.1); Sodium 143 mmol/L (136-145)
[2021-03-06 11:50] LABS: Alanine Aminotransferase 26 U/L (12-78); Albumin Level 4.6 g/dl (3.5-5.0); Albumin/Globulin Ratio 1.7 (1.1-1.8); Alkaline Phosphatase 81 U/L (38-126); Anion Gap 13.7 mEq/L (5-15); Aspartate Amino Transferase 35 U/L (14-36); Bilirubin,Total 0.9 mg/dl (0.2-1.3); Blood Urea Nitrogen 33 mg/dl (7-17); Calcium 9.9 mg/dl (8.4-10.2); Carbon Dioxide 28 mmol/L (22.0-30.0); Chol/HDL Ratio 3.4 (1-3.5); Cholesterol 211 mg/dl (140-200); Estimated Glomerular Filt Rate 31 ml/min (>60); GFR (African American) 38 ML/MIN (>60); Globulin 2.7 g/dL (1.3-3.2); Glucose 99 mg/dl (74-100); HDL Cholesterol 62 mg/dl (40-60); Total Protein,Serum 7.3 g/dl (6.3-8.2); Triglycerides 158 mg/dl (30-150); VLDL Cholesterol 32 mg/dL (0-40)
== END ==
PROVIDERS: PCP Internal Medicine Adolescent Medicine; Visit Provider Internal Medicine Adolescent Medicine
DX: I25.10 Atherosclerotic heart disease of native coronary artery without angina pectoris (principal); E78.5 Hyperlipidemia, unspecified; G89.4 Chronic pain syndrome; M15.0 Primary generalized (osteo)arthritis; E66.9 Obesity, unspecified; Z68.35 Body mass index [BMI] 35.0-35.9, adult; Z79.899 Other long term (current) drug therapy
CPT/HCPCS: 36415; 80053; 80061; 80305; 82306; 83036; 85025

== ENCOUNTER → 2021-04-08 16:10 | Outpatient (CLI) | payer MEDICARE, SELFPAY ==
--- NOTE | 2021-04-08 16:20 | XR_ITS ---
PROCEDURE INFORMATION: Exam: XR Right Humerus Exam date and time: 04/08/2021 4:20 PM Age: 75 years old Clinical indication: Pain; Upper arm; Right; Additional info: Right upper limb pain TECHNIQUE: Imaging protocol: XR Right humerus. Views: 2 or more views. COMPARISON: CR XR SHOULDER RT MIN 2V 02/12/2021 1:21 PM FINDINGS: Bones/joints: No acute fracture. No dislocation. Chronic widening of the right AC joint is likely postsurgical. Small corticated/chronic ossific bodies are seen near the cranial margin of the AC joint and posterior humeral head. Minimal glenohumeral joint degenerative spurring. Greater tuberosity cortical irregularity suggesting chronic rotator cuff tendinopathy. Soft tissues: Normal. IMPRESSION: 1. No acute finding. 2. Chronic findings as above.
--- NOTE | 2021-04-08 16:22 | XR_ITS ---
PROCEDURE INFORMATION: Exam: XR Right Shoulder Exam date and time: 04/08/2021 4:22 PM Age: 75 years old Clinical indication: Pain; Shoulder; Right; Additional info: Right upper limb pain TECHNIQUE: Imaging protocol: XR Right shoulder. Views: 2 or more views. COMPARISON: CR XR SHOULDER RT MIN 2V 02/12/2021 1:21 PM FINDINGS: Chest: Partially imaged aortic atherosclerosis and pacemaker leads. Bones/joints: Suggested remote prior distal clavicle resection. Small corticated/chronic ossific body near the cranial margin of the widened AC joint. There is minimal glenohumeral joint degenerative spurring. Cortical irregularity of the greater tuberosity of the humerus, compatible with chronic rotator cuff tendinopathy. Soft tissues: Normal. IMPRESSION: 1. No acute finding. 2. Chronic rotator cuff tendinopathy. Postsurgical changes of distal clavicle resection.
== END ==
PROVIDERS: PCP Internal Medicine Adolescent Medicine; Visit Provider Internal Medicine Adolescent Medicine
DX: M79.601 Pain in right arm (principal)
CPT/HCPCS: 73030; 73060

== ENCOUNTER 2021-05-05 10:38 | Outpatient (RCR) | payer MEDICARE, SELFPAY ==
--- NOTE | 2021-05-05 12:27 | HMH.PTOPEV ---
PT Outpatient Evaluation Rehab PT Outpatient Evaluation Start: 05/05/21 11:39 Freq: Status: Active Protocol: Document 05/05/21 11:39 RAINA (Rec: 05/05/21 12:27 [email or web address] [id number]) Electronically Signed By Cody Gallo, LAURA 05/05/21 11:39 Outpatient Therapy Subjective History Subjective History Pt. is a 76 year old female who presents to [facility] Outpatient Physical Therapy Services in [place] for the initial evaluation this date( 05/05/21) w/ c/o subacute and constant RUE edema, ecchymosis , P!, stiffness, weakness, and ADL deficits of insidious onset 6 weeks ago. Pt. reports going to [place], where she rides in a motorized scooter, then coming home and noticing a golf ball size lump in her arm. However, pt. reports noticing her biceps was increasingly sore and warm prior to visiting [place]. Pt. c/o ecchymosis from the RUE shldr. to the had after incident. Pt. reports having symptom relief w/ resting, and prescribed medication. Pt. reports symptoms worsening w/ reaching out and behind her, and trying to use the knob on the recliner to extend the leg rests. Recent diagnostic imaging(radiograph) positive for osteoarthritis per pt. report. Pt. reports having a steroid injection in her shldr . that provided her w/ some symptom relief. Pt. RTMD in 3 months for an annual check-up, but sooner if necessary per pt. report. Current medications include Aspirin, Acetaminophen, Isosorbide Mononitrate, Pravastatin, Lisinopril, Furosemide, Pantoprazole, Xarelto, Bystolic, Detrol, Alendronate, Hydrochlorothiazide, Baclofen , Methoca
== END 2021-07-07 09:50 | disposition home or self-care (01) ==
LOC: PT.CARL 10:38
PROVIDERS: PCP Internal Medicine Adolescent Medicine; Visit Provider Internal Medicine Adolescent Medicine
DX: S46.211A Strain of muscle, fascia and tendon of other parts of biceps, right arm, initial encounter (principal)
CPT/HCPCS: 97163

== ENCOUNTER → 2021-06-16 11:08 | Outpatient (POV) | payer MEDICARE, SELFPAY ==
[2021-06-16 11:30] VITALS: BP 144/91; PULSE 81; RESP 18; TEMP 36.4; O2SAT 96; BMI 35.4
--- NOTE | 2021-06-16 12:20 | HMH.PAINSOAP ---
[facility] Pain Management SOAP Note Subjective:: This patient is a pleasant 75-year-old white female that returns our clinic today for medication refill. Specifically, Lyrica 75 mg 1 p.o. twice daily. We have prescribed for her in the past. Patient states the Lyrica significantly reduced her lower leg symptomology. Restless leg syndrome. Bilateral leg radicular symptoms. Patient has recently taken over custody of her 6-year-old grandson. This is got her extremely active. She is having bilateral leg pain that she describes as constant, dull, aching. Pain intensifies when walking for any length of time. Sitting for any length of time. She rates the pain 6/10. Objective:: Patient is awake alert oriented x3. In no acute distress. Flexion and extension lumbar spine is very guarded secondary to pain in the lumbar spine. Motor strength upper extremities normal. Lower extremities normal. Deep tendon reflexes upper lower extremities normal. Gait is antalgic. Patient requires walker for stability while walking. Assessment:: Degenerative disc disease lumbar spine multilevels. Lumbar radicular symptoms. Plan:: Refilling Lyrica 75 mg 1 p.o. twice daily is appropriate. [facility] History Medical History: Reports:: Anxiety, Coronary Artery Disease, Gastroesophageal Reflux Disease(GERD), Hyperlipidemia, Hypertension, Internal Pacemaker Denies:: Cancer, Diabetes Mellitus Type 1, Diabetes Mellitus Type 2, MRSA, Seizures *Have you ever received a pneumonia vaccine?: Yes *Have you received a flu vaccine this season?: Yes Other Medical History: Reports: Arthritis. Denies: Blood Transfusion Reaction Laterality Cases: Right: Other Other Surgeries: Yes: Cardiac Catheterization, Coronary Stent, Hysterectomy-Total, Pacemaker, Tubal Ligation, Other (dental implants) Amputation: No Fractures: Yes (right leg (screws and francis)) - *Social History Smoking Status: Never smoker Alcohol Intake: never *Occupational Status:: retired Housing: house Household Members: spouse *Travel in the last 8 weeks: None - Psychiatric History Pschychiatric History:: Reports:: Anxiety Family Hx:: Hyperlipidemia, Diabetes, Hypertension
== END ==
PROVIDERS: Visit Provider Nurse Anesthetist, Certified Registered
DX: M51.16 Intervertebral disc disorders with radiculopathy, lumbar region (principal)
CPT/HCPCS: 99212; G0463

== ENCOUNTER → 2021-06-17 09:09 | Outpatient (CLI) | payer MEDICARE, SELFPAY ==
--- NOTE | 2021-06-17 09:14 | MM_ITS ---
PROCEDURE INFORMATION: Exam: MG Bilateral Screening 3D Mammography Exam date and time: 06/17/2021 9:21 AM Age: 76 years old Clinical indication: Screening examination. No family history of breast cancer. TECHNIQUE: Imaging protocol: Bilateral Screening tomosynthesis and 2D mammography including computer-aided detection (CAD) when performed. Limited positioning related to mobility impairment. COMPARISON: 1. MG MM DIG SCREENING MAMM BI W/CAD 03/05/2020 9:50 AM 2. MG SCBI MM Dig screening mamm BI w/CAD 06/16/2018 9:18 AM 3. MG SCBI MM Dig screening mamm BI w/CAD 05/11/2017 9:56 AM 4. MG DMSB DIG MAMM-SCREEN NADYA W/CAD 05/05/2016 9:09 AM FINDINGS: MAMMOGRAPHY: Breast composition: The breasts are almost entirely fatty. Mass: None. Architectural distortion: None. Calcifications: No suspicious calcifications. Asymmetric density: None. Skin thickening: None. Axillary adenopathy: None. Other findings: Left pacemaker battery pack in the axilla, limits evaluation and accentuates the importance of clinical breast exam. IMPRESSION: No mammographic evidence of malignancy. Annual screening is recommended unless otherwise clinically indicated. ASSESSMENT: BI-RADS Category 1: Negative
== END ==
PROVIDERS: PCP Internal Medicine Adolescent Medicine; Visit Provider Internal Medicine Adolescent Medicine
DX: Z12.31 Encounter for screening mammogram for malignant neoplasm of breast (principal)
CPT/HCPCS: 77063; 77067

== ENCOUNTER → 2021-09-01 12:45 | Outpatient (POV) | payer MEDICARE, SELFPAY ==
--- NOTE | 2021-09-01 13:56 | HMH.PAINSOAP ---
[facility] Pain Management SOAP Note Subjective:: Patient is a pleasant 76-year-old female that presents today for clinic for medication refill and follow-up. 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 Today she rates her pain a 7 out of 10. She states her pain is in her left leg. She states the pain radiates from her tailbone down to her foot on the left side, occasionally having right sided pain as well. Denies any injuries or trauma. Patient she has had back surgery in the past by Dr. Schaefer. She states he is told her she is no longer a candidate for future surgeries. She also has a history of polio. Patient is also not a candidate for a stimulator due to her pacemaker. Patient is currently on Xarelto for a previous blood clot. Patient also takes hydrocodone 7.5 mg 4 times a day that is prescribed by Dr. Mendoza. We are managing her pain with Lyrica 75 mg twice a day and compounding cream that both provide significant relief. She denies any side effects from these medications. Patient denies any change in the location or type of pain. Patient is requesting refill of both these medications at today's visit. Her Yuri is [id number]. It has been reviewed and is appropriate Review of Systems: General: No recent weight changes, no fever, no sleep disturbances Respiratory: No cough, no shortness of air, no recurring pulmonary infections Cardiovascular/peripheral vascular: No chest pain, no palpitations, no edema, no shortness of breath Gastrointestinal: No new onset incontinence, normal bowel movements reported Genitourinary: No new onset incontinence Musculoskeletal: Low back pain, left leg pain Psychiatric: [Normal mood/affect] Neurological: [Denies weakness in extremities], [denies balance issues] Objective:: Physical Exam: General: Alert and oriented x3, no acute distress, pleasant and cooperative Lungs: Respirations even and unlabored, symmetrical chest expansion Eyes: PERRL Musculoskeletal: Flexion and extension of lumbar [spine] somewhat guarded secondary to pain, [antalgic gait noted] Neurological: Speech clear, no gross sensory deficit Assessment:: Did not 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 Patient should have refills on her compounding cream, however, if she does not she has been instructed to call the office for a new prescription. Patient had point tenderness at during today's visit. I have discussed with the patient about doing a lumbar epidural steroid injection. Risk and benefits have been discussed with patient. She would like to proceed forward with this injection. We will contact Dr. Mendoza's office regarding stopping the Xarelto prior to the LESI. We will schedule her for a LESI at L4-L5. Patient has been instructed to contact the clinic with any concerns before the next appointment. Dr. Sorensen has reviewed this note and agrees with this plan of care. This note was dictated using voice recognition software and make contain errors or omissions. [facility] History I have reviewed the patient's past medical history: Yes Medical History: Reports:: Anxiety, Coronary Artery Disease, Gastroesophageal Reflux Disease(GERD), Hyperlipidemia, Hypertension, Internal Pacemaker Denies:: Cancer, Diabetes Mellitus Type 1, Diabetes Mellitus Type 2, MRSA, Seizures *Have you ever received a pneumonia vaccine?: Yes *Have you received a flu vaccine this season?: Yes Other Medical History: Reports: Arthritis. Denies: Blood Transfusion Reaction Laterality Cases: Right: Other Other Surgeries: Yes: Cardiac Catheterization, Coronary Stent, Hysterectomy-Total, Pacemaker, Tubal Ligation, Other (dental implants) Amputation: No Fractures: Yes (right leg (screws and francis)) - *Social History Smoking Status: Never smoker Alcohol Intake: never
[2021-09-01 14:00] VITALS: BP 137/73; PULSE 76; RESP 18; TEMP 37; O2SAT 95; BMI 34.4
== END ==
PROVIDERS: Visit Provider Student in an Organized Health Care Education/Training Program
DX: M51.16 Intervertebral disc disorders with radiculopathy, lumbar region (principal); M19.90 Unspecified osteoarthritis, unspecified site
CPT/HCPCS: 99212; G0463

== ENCOUNTER 2021-09-12 10:59 | Day surgery (SDC) | payer MEDICARE, SELFPAY ==
[2021-09-12 11:07] VITALS: BP 138/70; PULSE 71; RESP 18; TEMP 36.6; O2SAT 98; BMI 34.3
[2021-09-12 11:14] VITALS: BP 146/77; PULSE 76; RESP 20
--- NOTE | 2021-09-12 11:19 | HMH.PMPROC ---
- Procedure Date: 09/12/21 Time: 11:19 Anesthesiologist:: Cody Ford CRNA Complications:: None Pre-procedure Diagnosis:: Degenerative disc disease lumbar spine multilevels. Lumbar radiculopathy symptoms. Postlaminectomy syndrome. Lumbar spondylosis. Post-procedure Diagnosis:: Same Indications for Procedure:: Very pleasant 76-year-old female that comes our clinic today for lumbar epidural steroid injection at L4-5 level. Patient is complaining of low back pain as well as bilateral hip and leg radicular symptoms. She rates her pain 7/10. Procedure Details:: Procedure: Lumbar epidural steroid injection under fluoroscopy Informed consent was obtained and the risks and benefits of the procedure were explained to the patient. The patient was taken to the procedure room and noninvasive monitors placed, including noninvasive blood pressure cuff and pulse oximeter. The back was viewed using C-arm Fluoroscopy and prepped using Betadine as a cleansing solution and the L4-L5 interspace was palpated. Skin and subcutaneous tissues were anesthetized using lidocaine 1.5% and a 25-gauge needle. After this, an 18-gauge Touhy epidural needle was placed into the L4-L5 interspace and advanced using fluoroscopic guidance and loss of resistance to air until the epidural space was encountered. After confirmation of needle placement in the epidural space, with dye, a solution containing lidocaine 1.5%, 4 mL and Depo-Medrol 80 mg were incrementally injected into the lumbar epidural space. The patient tolerated the procedure well with no complications. The patient was observed in the Pain Clinic and then discharged home neurologically intact. Plan and Disposition:: Patient was discharged without incident.
[2021-09-12 11:23] VITALS: BP 138/72; PULSE 69; RESP 20; O2SAT 99
== END 2021-09-12 11:24 | disposition home or self-care (01) ==
LOC: SC.PAINP 11:00
PROVIDERS: PCP Internal Medicine Adolescent Medicine; Visit Provider Nurse Anesthetist, Certified Registered
DX: M51.16 Intervertebral disc disorders with radiculopathy, lumbar region (principal); M96.1 Postlaminectomy syndrome, not elsewhere classified; M47.26 Other spondylosis with radiculopathy, lumbar region
CPT/HCPCS: 62323; J1040

== ENCOUNTER → 2021-09-29 10:43 | Outpatient (POV) | payer MEDICARE, SELFPAY ==
[2021-09-29 11:00] VITALS: BP 124/72; PULSE 84; RESP 20; BMI 34.3
--- NOTE | 2021-09-29 12:00 | HMH.PAINSOAP ---
[facility] Pain Management SOAP Note Subjective:: Patient is a pleasant 68-year-old female who presents today for follow-up after a lumbar epidural steroid injection on September 13, 2021. Patient has Been treated for degenerative disc disease of the lumbar spine with lumbar radiculopathy symptoms. After her injection, patient had significant relief of 90 to 100% and rates her pain today 0 out of 10. She has been able to increase her activity since the injection. Denies any issues after the procedure. Patient is also being prescribed pregabalin 75 mg twice a day by our clinic. Denies any side effects from these medications. She has been stable with this medication. She is needing refills on this medication. Yuri [id number] and an active morphine equivalent of 30. Review of Systems: General: No recent weight changes, no fever, no sleep disturbances Respiratory: No cough, no shortness of air, no recurring pulmonary infections Cardiovascular/peripheral vascular: No chest pain, no palpitations, no edema, no shortness of breath Gastrointestinal: No new onset incontinence, normal bowel movements reported Genitourinary: No new onset incontinence Musculoskeletal: Low back pain Psychiatric: [Normal mood/affect] Neurological: [Denies weakness in extremities], [denies balance issues] Objective:: Physical Exam: General: Alert and oriented x3, no acute distress, pleasant and cooperative Lungs: Respirations even and unlabored, symmetrical chest expansion Eyes: PERRL Musculoskeletal: Flexion and extension of lumbar [spine] somewhat guarded secondary to pain, [antalgic gait noted] Neurological: Speech clear, no gross sensory deficit Assessment:: Degenerative disc disease of lumbar spine with lumbar disc left knee symptoms, postlaminectomy syndrome, lumbar spondylosis Plan:: Patient continues to have significant relief after the lumbar epidural steroid injection. We will continue the patient's pregabalin 75 mg twice a day and provided patient with 3 months worth of refill. We will follow this patient in 3 months. Patient has been instructed to contact the clinic with any concerns before the next appointment. Dr. Sorensen has reviewed this note and agrees with this plan of care. This note was dictated using voice recognition software and make contain errors or omissions. [facility] History Medical History: Reports:: Anxiety, Coronary Artery Disease, Gastroesophageal Reflux Disease(GERD), Hyperlipidemia, Hypertension, Internal Pacemaker Denies:: Cancer, Diabetes Mellitus Type 1, Diabetes Mellitus Type 2, MRSA, Seizures *Have you ever received a pneumonia vaccine?: Yes *Have you received a flu vaccine this season?: Yes Other Medical History: Reports: Arthritis. Denies: Blood Transfusion Reaction Laterality Cases: Right: Other Other Surgeries: Yes: Cardiac Catheterization, Coronary Stent, Hysterectomy-Total, Pacemaker, Tubal Ligation, Other (dental implants) Amputation: No Fractures: Yes (right leg (screws and francis)) - *Social History Smoking Status: Never smoker Alcohol Intake: never *Occupational Status:: other Housing: house Household Members: spouse *Travel in the last 8 weeks: None - Psychiatric History Pschychiatric History:: Reports:: Anxiety Family Hx:: No significant family history
== END ==
PROVIDERS: PCP Internal Medicine Adolescent Medicine; Visit Provider Nurse Practitioner Family
DX: M51.36 Other intervertebral disc degeneration, lumbar region (principal); M96.1 Postlaminectomy syndrome, not elsewhere classified; M47.816 Spondylosis without myelopathy or radiculopathy, lumbar region
CPT/HCPCS: 99212; G0463

== ENCOUNTER 2021-10-11 19:24 | Emergency (ER) | payer MEDICARE, SELFPAY ==
[2021-10-11 20:10] VITALS: BP 131/71; PULSE 79; RESP 19; TEMP 37.2; O2SAT 98; BMI 37.5
--- NOTE | 2021-10-11 20:47 | HMH.EDUTC ---
[facility] [place] Clinical Impression: Close exposure to COVID-19 virus Disposition: Home, Self-Care Condition on Discharge: Good Instructions: DI for COVID-19 (Suspected or Confirmed ) Additional Instructions: covid swab was sent to lab, call tomorrow for results. self isolate until test results are known to be negative No sign of a bacterial infection. Likely viral. Viruses can take 7-14 days to run their course. Nasal saline and bulb syringe or nose Bing to remove nasal drainage to help with nasal congestion. Hard to eat, drink, sleep with nasal congestion so important to keep this cleaned out. Monitor temp. Tylenol or Motrin as needed for pain or fever Encourage fluids, water, Gatorade, Powerade, Pedialyte if /toddler/child Warm salt water gargles Warm fluids Sore throat lozenges Sleep elevated Humidifier/vaporizer Follow-up immediately for new or worsening symptoms or no noticeable improvement over the next 48-72 hours. Referrals: Jose Mendoza MD [Primary Care Provider] - Time of Disposition: 20:49 Medical Decision Making - Yuri Inquiry Pt receiving controlled substance: No Vital Signs: 10/11/21 20:10 Temperature 98.9 F Temperature Source Oral Pulse Rate [Right Brachial] 79 Respiratory Rate 19 Blood Pressure [Right Arm] 131/71 Blood Pressure Mean [Right Arm] 91 Blood Pressure Source [Right Arm] Automatic Cuff Blood Pressure Position [Right Arm] Sitting 02 Sat by Pulse Oximetry 98 Oxygen Delivery Method Room Air Orders (Tests/Meds): ORDERS Category Date Time Status Covid-19 Nasal PCR ([facility]) Routine Lab 10/11/21 20:06 Received [facility] [place] HPI - General Chief complaint: Urgent [facility] Stated complaint: exposed to covid, HAYDEN body aches Time Seen by Provider: 10/11/21 20:48 Mode of Arrival: Ambulatory Source of Information: Patient Limitations: No Limitations Description of Symptoms (Recalled from Triage Doc. by RN): PATIENT C/O BODY ACHES THAT STARTED THIS MORNING. RECENTLY EXPOSED TO COVID HEENT Symptoms (Recalled from RN notes): No Resp Symptoms (Recalled from RN notes): No Skin Symptoms (Recalled from RN notes): No MS Symptoms (Recalled from RN notes): No Functional Status (Recalled from RN notes): WNL - History of Present Illness Provider Complaint: 73 yr old female presents for body aches that started this am. grandson has covid - Related Data Home Medications Medication Instructions Recorded Confirmed alendronate 70 mg tablet 70 mg PO QWEEK 12/23/17 09/12/21 aspirin 81 mg tablet,delayed 81 mg PO DAILY 12/23/17 09/12/21 release baclofen 10 mg tablet 10 mg PO TID 12/23/17 09/12/21 calcium carbonate 500 mg-vitamin 1 tab PO BID 12/23/17 09/12/21 D3 5 mcg (200 unit) tablet furosemide 40 mg tablet 20 mg PO DAILY PRN tab 12/23/17 09/12/21 isosorbide mononitrate 60 mg 60 mg PO DAILY 12/23/17 09/12/21 tablet,extended release 24 hr lisinopril 40 mg tablet 40 mg PO DAILY 12/23/17 09/12/21 multivitamin,ji-pzgf-soxhcyuy 1 tab PO DAILY 12/23/17 09/12/21 nebivolol 2.5 mg tablet 2.5 mg PO DAILY 12/23/17 09/12/21 pantoprazole 40 mg tablet,delayed 40 mg PO BID 12/23/17 09/12/21 release pravastatin 80 mg tablet 80 mg PO DAILY 12/23/17 09/12/21 spironolactone 25 mg tablet 12.5 mg PO DAILY tab 12/23/17 09/12/21 Rivaroxaban [Xarelto 20mg Tablet*] 20 mg PO DAILY 09/02/21 09/12/21 Previous Rx's Medication Instructions Recorded Pregabalin [Lyrica 75mg Cap] 75 mg PO BID #60 cap 09/01/21 Pregabalin 75 mg PO BID #60 cap 09/29/21 Allergies Allergy/AdvReac Type Severity Reaction Status Date / Time diltiazem [DILTIAZEM] Allergy Intermediate HEART Verified 09/12/21 11:07 RACING - Worker's Comp Is this a Worker's Comp case?: No [facility] History - Hepatitis A Screen Attestation statement:: This patient has been screened for Hepatitis A risk factors. I have reviewed the patient's past medical history: Yes Medical History: Reports:: Anxiety, Marylou
[2021-10-11 20:48] VITALS: BP 131/71; PULSE 79; RESP 19; TEMP 37.2; O2SAT 98
== END 2021-10-11 20:52 | disposition home or self-care (01) ==
PROVIDERS: Emergency Provider Nurse Practitioner Family; PCP Internal Medicine Adolescent Medicine
DX: U07.1 COVID-19 (principal); R52 Pain, unspecified
CPT/HCPCS: 99212; C9803; G0463; U0003; U0005

== ENCOUNTER → 2021-12-04 10:36 | Outpatient (POV) | payer MEDICARE, SELFPAY ==
[2021-12-04 11:00] VITALS: BP 142/69; PULSE 83; RESP 18; TEMP 36.1; O2SAT 98; BMI 35.4
--- NOTE | 2021-12-04 12:15 | EXP.PAIN.SOA ---
[facility] Pain Management SOAP Note Subjective:: Patient is a pleasant 76-year-old female who presents today for follow-up. Patient is current being treated for degenerative disease of lumbar spine with lumbar radiculopathy symptoms, left hip pain. We have been managing this patient with injective therapy. Her last lumbar epidural steroid injection was in August 2021. She has done well with this injection. She has gotten 90 to 100% of relief after this injection. Today, patient states that she has been having worsening left hip pain that radiates to her left lower extremity. This started about a week ago. She denies any recent falls or traumas. She cannot tolerate any prolonged sitting, standing, and walking. She rates her pain today as 10 out of 10. She is prescribed Crandall 7.5mg 4 times a day by Dr. Mendoza and Lyrica 75mg BID by our clinic. She states that these medications are not helping manage her pain. Denies any loss of bowel and bladder functions. Yuri [id number], MEQ 30. Review of Systems: General: No recent weight changes, no fever, no sleep disturbances Respiratory: No cough, no shortness of air, no recurring pulmonary infections Cardiovascular/peripheral vascular: No chest pain, no palpitations, no edema, no shortness of breath Gastrointestinal: No new onset incontinence, normal bowel movements reported Genitourinary: No new onset incontinence Musculoskeletal: Low back pain, left hip pain Psychiatric: [Normal mood/affect] Neurological: [Denies weakness in extremities], [denies balance issues] Objective:: Physical Exam: General: Alert and oriented x3, no acute distress, pleasant and cooperative Lungs: Respirations even and unlabored, symmetrical chest expansion Eyes: PERRL Musculoskeletal: Flexion and extension of lumbar [spine] somewhat guarded secondary to pain, [antalgic gait noted]; left SI is positive for RUPINDER, Rashaun's, Kilmichael's, Gaenslen's, compression, and distraction. Neurological: Speech clear, no gross sensory deficit Assessment:: Degenerative disease of lumbar spine with lumbar radiculopathy symptoms, left-sided sacroiliitis Plan:: Patient has been having worsening left hip pain that radiates to left lower extremity for the past week. She is tender to palpation around the left SI joint. She does have positive left SI exam. We will schedule this patient for a left SI injection. In 2 weeks, we will also schedule the patient for a lumbar epidural steroid injection at L4-L5. Her last lumbar epidural steroid injection was in August 2021 that provided 90-100% of relief. Patient is on Xarelto. We will reach out to his PCP to see if she can stop this medication 4 days prior to her procedure. Patient has been instructed to contact the clinic with any concerns before the next appointment. Dr. Sorensen has reviewed this note and agrees with this plan of care. This note was dictated using voice recognition software and make contain errors or omissions. PFSH PFSH Social History Smoking Status: Never smoker alcohol intake: never current occupational status: retired Travel in the last 8 weeks: None household members: spouse housing: house current occupational exposures/hazards: No caffeine: Yes
== END ==
PROVIDERS: Visit Provider Student in an Organized Health Care Education/Training Program
DX: M51.16 Intervertebral disc disorders with radiculopathy, lumbar region (principal); M46.1 Sacroiliitis, not elsewhere classified; Z79.899 Other long term (current) drug therapy
CPT/HCPCS: 99212; G0463

== ENCOUNTER 2021-12-09 09:21 | Day surgery (SDC) | payer MEDICARE, SELFPAY ==
[2021-12-09 09:33] VITALS: BP 134/76; PULSE 76; RESP 18; TEMP 36.2; O2SAT 99; BMI 35.4
[2021-12-09 09:42] VITALS: BP 157/70; PULSE 87; RESP 18; O2SAT 98
[2021-12-09 09:43] VITALS: BP 157/70; PULSE 87; RESP 18; O2SAT 98
[2021-12-09 09:47] VITALS: BP 129/72; PULSE 74; RESP 18; O2SAT 99
--- NOTE | 2021-12-09 11:09 | EXP.PAIN.PRO ---
Procedure Date: 12/09/21 Time: 09:30 Anesthesiologist:: Cody Ford CRNA Complications:: None Pre-procedure Diagnosis:: Left sacroiliitis Post-procedure Diagnosis:: Same. Indications for Procedure:: 76Very [id number] female that comes our clinic today with left posterior hip pain. She describes pain as constant, sharp, stabbing. She rates the pain 8/10. She has extreme point tenderness over the left SI joint upon examination. Procedure Details:: Procedure: Left sacroiliac injection under fluoroscopy Informed consent was obtained and the risk and benefits of the procedure were explained to the patient.~ The patient was taken to the procedure room and noninvasive monitors were placed including noninvasive blood pressure cuff and pulse oximeter.~ The patient was placed prone on the procedure table.~ The~ left hip was cleansed using Betadine as a cleansing solution.~ C-arm fluorosocpy was used to view the left SI joint.~ The skin and subcutaneous tissues were anesthetized using Lidocaine 1.5% and a 25-gauge needle.~ After this, a 22-gauge spinal needle was inserted under fluoroscopic guidance into the inferior aspect of the left SI joint.~ Omnipaque dye was injected and a good spread was seen throughout the joint.~ After this, approximately 5 mL of bupivacaine 0.25% and Depo-Medrol 40 mg was incrementally injected into the sacroiliac joint.~ The patient tolerated the procedure well with no complications.~ The patient was observed in the Pain Clinic for a period of 30-45 minutes, then discharged home neurologically intact.~ Plan and Disposition:: Patient was discharged without incident
== END 2021-12-09 09:47 | disposition home or self-care (01) ==
LOC: SC.PAINP 09:22
PROVIDERS: PCP Internal Medicine Adolescent Medicine; Visit Provider Nurse Anesthetist, Certified Registered
DX: M46.1 Sacroiliitis, not elsewhere classified (principal); M51.16 Intervertebral disc disorders with radiculopathy, lumbar region
CPT/HCPCS: 27096; G0260; J1040

== ENCOUNTER 2021-12-23 08:38 | Day surgery (SDC) | payer MEDICARE, SELFPAY ==
[2021-12-23 08:50] VITALS: BP 145/54; PULSE 80; RESP 18; TEMP 36.4; O2SAT 97; BMI 34.9
[2021-12-23 08:59] VITALS: BP 142/76; PULSE 83; RESP 18; O2SAT 97
[2021-12-23 09:00] VITALS: BP 142/76; PULSE 83; RESP 18; O2SAT 97
[2021-12-23 09:06] VITALS: BP 139/64; PULSE 82; RESP 18; O2SAT 97
--- NOTE | 2021-12-23 09:44 | EXP.PAIN.PRO ---
Procedure Date: 12/23/21 Time: 09:30 Anesthesiologist:: Cody Ford CRNA Complications:: None Pre-procedure Diagnosis:: Degenerative disc disease lumbar spine multilevels. Lumbar radiculopathy. Post-procedure Diagnosis:: Same. Indications for Procedure:: Very pleasant 76-year-old female comes to our clinic today for lumbar epidural steroid injection at the L4-5 level. Patient describes low back pain as constant, dull, aching. She rates the pain 7/10. Patient also complained of bilateral hip and leg radicular symptoms at times. Procedure Details:: Procedure: Lumbar epidural steroid injection under fluoroscopy Informed consent was obtained and the risks and benefits of the procedure were explained to the patient. The patient was taken to the procedure room and noninvasive monitors placed, including noninvasive blood pressure cuff and pulse oximeter. The back was viewed using C-arm Fluoroscopy and prepped using Chloraprep as a cleansing solution and the L4-L5 interspace was palpated. Skin and subcutaneous tissues were anesthetized using lidocaine 1.5% and a 25-gauge needle. After this, an 18-gauge Touhy epidural needle was placed into the L4-L5 interspace and advanced using fluoroscopic guidance and loss of resistance to air until the epidural space was encountered. After confirmation of needle placement in the epidural space, with dye, a solution containing normal saline, 3 mL and Depo-Medrol 80 mg were incrementally injected into the lumbar epidural space. The patient tolerated the procedure well with no complications. The patient was observed in the Pain Clinic and then discharged home neurologically intact. Plan and Disposition:: Patient was discharged without incident
== END 2021-12-23 09:06 | disposition home or self-care (01) ==
LOC: SC.PAINP 08:39
PROVIDERS: PCP Internal Medicine Adolescent Medicine; Visit Provider Nurse Anesthetist, Certified Registered
DX: M51.16 Intervertebral disc disorders with radiculopathy, lumbar region (principal)
CPT/HCPCS: 62323; J1040

== ENCOUNTER → 2022-01-01 13:13 | Outpatient (CLI) | payer MEDICARE, SELFPAY ==
--- NOTE | 2022-01-01 13:18 | XR_ITS ---
FINAL REPORT CLINICAL HISTORY: TRAUMATIC HEMATOMA OF L WRIST FINDINGS: 3 views of the left wrist were obtained. There is no acute fracture or dislocation. There are moderate hypertrophic changes at the basilar joint. There is no soft tissue abnormality. IMPRESSION: No acute abnormality. Reviewed, Interpreted and Dictated by Efrain Hylton MD Transcribed by Kingsley yLles Authenticated and [facility]
== END ==
PROVIDERS: PCP Internal Medicine Adolescent Medicine; Visit Provider Internal Medicine Adolescent Medicine
DX: S60.212A Contusion of left wrist, initial encounter (principal)
CPT/HCPCS: 73110

== ENCOUNTER → 2022-01-08 12:38 | Outpatient (POV) | payer MEDICARE, SELFPAY ==
[2022-01-08 13:15] VITALS: BP 126/65; PULSE 81; RESP 18; O2SAT 93; BMI 34.9
--- NOTE | 2022-01-08 13:22 | A.OFFVIS_ITS ---
[facility] Pain Management SOAP Note Subjective:: Patient is a pleasant 76-year-old female who presents today for follow-up of lumbar epidural steroid injection at L4-L5 on 12/23/2021. We are currently treating the patient for degenerative disc disease of lumbar spine with lumbar radiculopathy symptoms, left hip pain. Today the patient states that she has had significant improvement of at least 50% following this injection and feels like it is still continuing to provide relief. Today patient rates her pain a 4 out of 10. Patient denies any new trauma or injury. Patient denies any change in location or type of pain she experiences. Patient is currently prescribed [place] 7.5 mg 4 times a day from Dr. Vee's office and pregabalin 75 mg twice daily from our office. Patient denies any side effects from these medications. She states these medications do help her pain symptoms. She is requesting a refill of her pregabalin. Her Yuri is [id number]. It has been reviewed and appropriate. Review of Systems: General: No recent weight changes, no fever, no sleep disturbances Respiratory: No cough, no shortness of air, no recurring pulmonary infections Cardiovascular/peripheral vascular: No chest pain, no palpitations, no edema, no shortness of breath Gastrointestinal: No new onset incontinence, normal bowel movements reported Genitourinary: No new onset incontinence Musculoskeletal: Low back pain, leg pain Psychiatric: [Normal mood/affect] Neurological: [Denies weakness in extremities], [denies balance issues] Objective:: Physical Exam: General: Alert and oriented x3, no acute distress, pleasant and cooperative Lungs: Respirations even and unlabored, symmetrical chest expansion Eyes: PERRL Musculoskeletal: Flexion and extension of lumbar [spine] somewhat guarded secondary to pain, [antalgic gait noted] Neurological: Speech clear, no gross sensory deficit Assessment:: Degenerative disc disease of lumbar spine with lumbar radiculopathy symptoms, left hip pain Plan:: Patient has had significant improvement of her symptoms following her last lumbar epidural steroid injection. At this time the patient does not require any additional injective therapy. I will refill the patient's pregabalin 75 mg twice a day and provide a 1 month supply of this medication. Patient will follow-up in 1 month via telehealth visit for reevaluation of symptoms, medication refill and follow-up. Patient has been instructed to contact the clinic with any concerns before the next appointment. Dr. Sorensen has reviewed this note and agrees with this plan of care. This note was dictated using voice recognition software and make contain errors or omissions. [facility] Medical History History of pacemaker Hyperlipidemia Hypertension Surgical History History of hip surgery History of hysterectomy History of shoulder surgery Family History Other No significant family history Social History Smoking Status: Never smoker alcohol intake: never current occupational status: retired Travel in the last 8 weeks: None household members: spouse housing: house current occupational exposures/hazards: No caffeine: Yes
== END | disposition home or self-care (01) ==
PROVIDERS: PCP Internal Medicine Adolescent Medicine; Visit Provider Nurse Practitioner Family
DX: M51.16 Intervertebral disc disorders with radiculopathy, lumbar region (principal); M25.552 Pain in left hip
CPT/HCPCS: 99212; G0463

== ENCOUNTER → 2022-03-06 10:03 | Outpatient (CLI) | payer MEDICARE, SELFPAY ==
[2022-03-06 11:10] LABS: Basophils # 0.1 K/mm3 (0-0.2); Basophils % 1.4 % (0.1-2.0); Eosinophils # 0.2 K/mm3 (0.0-0.4); Eosinophils % 3.1 % (0.1-12.0); Hematocrit 42.9 % (37.0-47.0); Hemoglobin 12.9 g/dL (12.2-16.2); Lymphocytes # 3.1 K/mm3 (0.7-4.5); Lymphocytes % 42.7 % (10-50); Mean Corpuscular Hemoglobin 29.3 pg (27.0-31.2); Mean Corpuscular Volume 97.8 fl (81-99); Mean Platelet Volume 10.2 fl (7.4-10.4); Monocytes # 0.5 K/mm3 (0.1-1.0); Monocytes % 7.4 % (1.7-9.3); Neutrophils # 3.2 K/mm3 (1.8-7.8); Neutrophils % 45.4 % (37.0-80.0); Platelet Count 247 K/mm3 (142-424); Red Blood Count 4.39 M/mm3 (4.20-5.40); Red Cell Distribution Width 14.2 % (11.5-17.5); White Blood Count 7.1 K/mm3 (4.8-10.8)
[2022-03-06 11:54] LABS: Alanine Aminotransferase 17 U/L (12-78); Albumin/Globulin Ratio 1.6 (1.1-1.8); Alkaline Phosphatase 73 U/L (38-126); Anion Gap 11.9 mEq/L (5-15); Aspartate Amino Transferase 32 U/L (14-36); Bilirubin,Total 0.5 mg/dl (0.2-1.3); Blood Urea Nitrogen 28 mg/dl (7-17); Calcium 9.1 mg/dl (8.4-10.2); Carbon Dioxide 27 mmol/L (22.0-30.0); Chloride 109 mmol/L (98-107); Chol/HDL Ratio 3.5 (1-3.5); Cholesterol 169 mg/dl (140-200); Estimated Glomerular Filt Rate 40 ml/min (>60); GFR (African American) 48 ML/MIN (>60); Globulin 2.5 g/dL (1.3-3.2); Glucose 95 mg/dl (74-100); HDL Cholesterol 48 mg/dl (40-60); Potassium 3.9 mmoL/L (3.5-5.1); Sodium 144 mmol/L (136-145); Total Protein,Serum 6.5 g/dl (6.3-8.2); Triglycerides 224 mg/dl (30-150); VLDL Cholesterol 45 mg/dL (0-40)
[2022-03-06 12:05] LABS: Direct LDL Cholesterol 77.08 mg/dL (100-129)
[2022-03-06 12:10] LABS: 25-OH Vitamin D, Total 40.2 ng/mL (30-100)
== END ==
PROVIDERS: PCP Internal Medicine Adolescent Medicine; Visit Provider Internal Medicine Adolescent Medicine
DX: I25.10 Atherosclerotic heart disease of native coronary artery without angina pectoris (principal); E78.5 Hyperlipidemia, unspecified; E55.9 Vitamin D deficiency, unspecified; M15.0 Primary generalized (osteo)arthritis
CPT/HCPCS: 36415; 80053; 80061; 82306; 85025

== ENCOUNTER → 2022-04-27 12:49 | Outpatient (POV) | payer MEDICARE, SELFPAY ==
--- NOTE | 2022-04-27 13:03 | EXP.PAIN.SOA ---
[facility] Pain Management SOAP Note Subjective:: Patient is a pleasant 77-year-old female who presents today for follow-up. We are currently treating the patient for degenerative disc disease of lumbar spine with lumbar radiculopathy symptoms, left hip pain. Today she rates her pain an 8 out of 10. She states her pain today is primarily in her left shoulder as well as low back with radiating symptoms down her left leg to her toes. Patient does describe this as an aching, throbbing sensation that is worse with increased activity. Patient was previously prescribed compounding cream that she will use on her shoulder that provided significant relief. She does state today that she is out of refills on this and is requesting additional. She does state that her low back pain is more bothersome at this time. She does states she has difficulty performing activities of daily living such as cooking and cleaning and even ambulating is difficult. She does use a walker for assistance with ambulating. Patient has had injections in the past that did provide significant improvement including a lumbar epidural steroid injection at L4-L5 on 12/23/2021. She rated approximately 50% improvement lasting a couple months. She is currently managed with [place] 7.5 mg 4 times a day from her primary care doctor. Patient denies any side effects from this medication. Patient does state that she has been having a hard time lately that she lost 3 sisters in 2021 and lost another sibling in February of this year. Patient is trying to raise her 7-year-old grandson and has a lot on her plate. Her Yuri is [id number]. Its been reviewed and appropriate. Review of Systems: General: No recent weight changes, no fever, no sleep disturbances Respiratory: No cough, no shortness of air, no recurring pulmonary infections Cardiovascular/peripheral vascular: No chest pain, no palpitations, no edema, no shortness of breath Gastrointestinal: No new onset incontinence, normal bowel movements reported Genitourinary: No new onset incontinence Musculoskeletal: Left shoulder pain, left low back pain Psychiatric: [Normal mood/affect] Neurological: [Denies weakness in extremities], [denies balance issues] Objective:: Physical Exam: General: Alert and oriented x3, no acute distress, pleasant and cooperative Lungs: Respirations even and unlabored, symmetrical chest expansion Eyes: PERRL Musculoskeletal: Flexion and extension of lumbar [spine] somewhat guarded secondary to pain, [antalgic gait noted] Neurological: Speech clear, no gross sensory deficit ORT score updated with low risk There is generalized osteopenia.? Mild wedge compression changes are present at L5-L3 and L1.? These areas however had a similar appearance compared to previous abdomen CT. L2-L3: Mild chronic wedge compression changes of L3. Mild bulging disc at L2-L3 with mild distal foraminal narrowing bilaterally. L3-L4: Mild concentric bulging disc with facet ligamentum hypertrophy with mild distal foraminal narrowing. L4-5: Mild chronic wedge compression changes of L5. Bulging disc is present which is eccentric toward the right with a suggestion of a small broad-based central disc protrusion also slightly eccentric toward the right. Facet and ligamentum hypertrophy is present with canal stenosis and moderate bilateral distal foraminal narrowing. Facet arthritic changes are present at this level. There is severe right lateral recess narrowing. L5-S1: Degenerative disc disease with bulging disc slightly eccentric toward the left with facet and ligamentum hypertrophy and mild bilateral foraminal narrowing. Incidental note is made of colonic diverticulosis. Left kidney is small. There is a right adrenal nodule at 2 cm with indeterminate density at approximately 15 Hounsfield units and a small calcification centrally. This nodule however is stable compared to 05/31/2017. IMPRESSION: 1. Chronic wedge compression changes of L1, L3, and L5.
[2022-04-27 13:09] VITALS: BP 108/53; PULSE 79; RESP 18; O2SAT 96; BMI 35.4
== END ==
PROVIDERS: PCP Internal Medicine Adolescent Medicine; Visit Provider Nurse Practitioner Family
DX: M51.16 Intervertebral disc disorders with radiculopathy, lumbar region (principal); M47.26 Other spondylosis with radiculopathy, lumbar region; M48.061 Spinal stenosis, lumbar region without neurogenic claudication; M25.512 Pain in left shoulder; M25.552 Pain in left hip
CPT/HCPCS: 99212; G0463

== ENCOUNTER 2022-05-12 13:03 | Day surgery (SDC) | payer MEDICARE, SELFPAY ==
[2022-05-12 13:20] VITALS: BP 138/68; PULSE 71; RESP 18; TEMP 36.8; O2SAT 98; BMI 35.4
[2022-05-12 13:27] VITALS: BP 157/86; PULSE 91; RESP 18; O2SAT 97
[2022-05-12 13:29] VITALS: BP 157/86; PULSE 91; RESP 18; O2SAT 97
--- NOTE | 2022-05-12 13:33 | P.PCN_ITS ---
Procedure Date: 05/12/22 Time: 13:15 Anesthesiologist:: Cody Ford CRNA Complications:: None Pre-procedure Diagnosis:: Degenerative disc disease lumbar spine multilevels. Lumbar radiculopathy. Lumbar disc bulge L4-5, L5-S1. Lumbar radiculopathy Post-procedure Diagnosis:: Same. Indications for Procedure:: This patient is a very pleasant 77-year-old female that comes our clinic today for a left-sided L4-5 and L5-S1 transforaminal epidural steroid injection. Patient craven disc herniation to the left at 4 5. Disc herniation at L5-S1 as well. Patient has radicular symptoms in the left hip all the way to the left foot. She describes this as constant, dull, aching, sharp, stabbing. She uses a walker for stability. Patient has difficulty ambulating due to the pain in the left hip and leg. Procedure Details:: Details of the procedure were explained to the patient. The patient was taken the procedure room placed in the prone position. The area of the lumbar spine was cleansed using chlorhexidine as a cleansing solution. At this time using fluoroscopy guidance markers were placed on the left lateral border of the L4 and L5 vertebral body. The skin and subcutaneous tissue was anesthetized using 1% lidocaine and 25-gauge needle. At this time using a 22-gauge 3-1/2 inch spinal needle the left upper one third of the L4-5 foramen was accessed. The same was done at the right L5-S1 foramen. Needle positions were confirmed and a lateral view using fluoroscopy and contrast dye. At this time 1 cc of 1% lidocaine +20 mg of Depo-Medrol was injected at each level after negative aspiration. [place] were removed. Band-Aid applied. Patient tolerated the procedure without difficulty. There are no complications. Plan and Disposition:: Patient was discharged without incident.
[2022-05-12 13:34] VITALS: BP 131/55; PULSE 74; RESP 18; O2SAT 98
== END 2022-05-12 13:34 | disposition home or self-care (01) ==
PROVIDERS: PCP Internal Medicine Adolescent Medicine; Visit Provider Nurse Anesthetist, Certified Registered
DX: M51.16 Intervertebral disc disorders with radiculopathy, lumbar region (principal); M47.26 Other spondylosis with radiculopathy, lumbar region
CPT/HCPCS: 64483; 64484; J1030; Q9966

== ENCOUNTER → 2022-06-15 11:21 | Outpatient (POV) | payer MEDICARE, SELFPAY ==
--- NOTE | 2022-06-15 11:40 | EXP.PAIN.SOA ---
[facility] Pain Management SOAP Note Subjective:: Patient is a pleasant 77-year-old female who presents today for follow-up of after transforaminal epidural steroid injection of L4-L5 and L5-S1 on 05/12/2022. We are currently treating the patient for degenerative disc disease of lumbar spine with lumbar radiculopathy symptoms, left hip pain, left shoulder pain. Today she states that she has had at least 80% improvement following this injection and feels like it is still providing additional relief. She does state that she will occasionally have some pain with ambulation when she walks without her walker however when she sits down it is relieved. Today she rates her pain an 8 out of 10. Patient states that her pain is all in her left shoulder and denies any new injury or trauma. She does describe this as an aching, throbbing sensation that is worse with increased activity. She does state it interferes with her ability to perform activities of daily living such as cooking and cleaning or even washing her hair. Patient has had shoulder injections in the past from a different provider and states they did give significant relief. Patient is currently managed with [place] 7.5 mg 4 times a day from Dr. Mendoza's office and compounding cream and pregabalin 75 mg twice daily from our office. Patient denies any side effects from these medications. She is requesting refill of her pregabalin during today's visit. Her Yuri is [id number]. Its been reviewed and appropriate. Review of Systems: General: No recent weight changes, no fever, no sleep disturbances Respiratory: No cough, no shortness of air, no recurring pulmonary infections Cardiovascular/peripheral vascular: No chest pain, no palpitations, no edema, no shortness of breath Gastrointestinal: No new onset incontinence, normal bowel movements reported Genitourinary: No new onset incontinence Musculoskeletal: Left shoulder pain Psychiatric: [Normal mood/affect] Neurological: [Denies weakness in extremities], [denies balance issues] Objective:: Physical Exam: General: Alert and oriented x3, no acute distress, pleasant and cooperative Lungs: Respirations even and unlabored, symmetrical chest expansion Eyes: PERRL Musculoskeletal: Flexion and extension of left shoulder somewhat guarded secondary to pain, [antalgic gait noted] Neurological: Speech clear, no gross sensory deficit Assessment:: Degenerative disc disease of lumbar spine with lumbar radiculopathy symptoms, left hip pain, left shoulder pain Plan:: Patient is experiencing significant pain in her left shoulder with limited range of motion. I have discussed with the patient that she may benefit from a left shoulder intra-articular injection. Risk and benefits were discussed with the patient and she would like to proceed forward with this plan of care. Patient is not on any blood thinners. I will refill her pregabalin 75 mg twice daily and provide a 1 month supply of this medication. Patient will be scheduled for a left shoulder intra-articular injection. Patient has been instructed to contact the clinic with any concerns before the next appointment. Dr. Sorensen has reviewed this note and agrees with this plan of care. This note was dictated using voice recognition software and make contain errors or omissions. [facility] Disclaimer: The information contained in this section may have been updated after the patient was seen, as this information can be updated by other users. Medical History History of pacemaker Hyperlipidemia Hypertension Surgical History History of hip surgery History of hysterectomy History of shoulder surgery Family History Other No significant family history Social History Smoking Status: Never sm
[2022-06-15 12:00] VITALS: BP 143/74; PULSE 83; RESP 20; O2SAT 96; BMI 35.1
== END | disposition home or self-care (01) ==
PROVIDERS: PCP Internal Medicine Adolescent Medicine; Visit Provider Nurse Practitioner Family
DX: M51.16 Intervertebral disc disorders with radiculopathy, lumbar region (principal); M25.512 Pain in left shoulder; M25.552 Pain in left hip
CPT/HCPCS: 99212; G0463

== ENCOUNTER 2022-06-16 08:22 | Day surgery (SDC) | payer MEDICARE, SELFPAY ==
[2022-06-16 08:39] VITALS: BP 148/74; PULSE 92; RESP 18; TEMP 36.4; O2SAT 97; BMI 35.4
[2022-06-16 08:46] VITALS: BP 160/72; PULSE 87; RESP 18; O2SAT 97
--- NOTE | 2022-06-16 08:49 | P.PCN_ITS ---
Procedure Date: 06/16/22 Time: 08:35 Anesthesiologist:: Cody Ford CRNA Complications:: None Pre-procedure Diagnosis:: Osteoarthritis left shoulder. Post-procedure Diagnosis:: Same Indications for Procedure:: Very pleasant 77-year-old female comes our clinic today for left intra-articular shoulder injection. She has good strength in her left arm. However limited range of motion secondary to osteoarthritis left shoulder. Procedure Details:: Procedure Details: Left shoulder intra-articular injection Informed consent was obtained risk and benefits of the procedure were explained to the patient. Patient was taken to the procedure room. The left shoulder was prepped using ChloraPrep. A 25-gauge needle was used first anteriorly, laterally, and then posteriorly to inject 10 mL bupivacaine 0.25% and Depo- Medrol 40 mg. Patient tolerated procedure well with no complications. Plan and Disposition:: Patient was discharged without incident.
== END 2022-06-16 08:46 | disposition home or self-care (01) ==
PROVIDERS: PCP Internal Medicine Adolescent Medicine; Visit Provider Nurse Anesthetist, Certified Registered
DX: M19.012 Primary osteoarthritis, left shoulder (principal)
CPT/HCPCS: 20610; J1040

== ENCOUNTER → 2022-07-06 10:09 | Outpatient (POV) | payer MEDICARE, SELFPAY ==
--- NOTE | 2022-07-06 10:25 | A.OFFVIS_ITS ---
[facility] Pain Management SOAP Note Subjective:: Patient is a pleasant 77-year-old female who presents today for follow-up of left intra-articular shoulder injection on 06/16/2022. We are currently treating the patient for degenerative disc disease of lumbar spine with lumbar radiculopathy symptoms, left hip pain, left shoulder pain. Today she rates her pain a 5 out of 10. She states that she has at least had 50% improvement in her shoulder symptoms following this injection and feels like it is still continuing to provide additional relief. Patient does state that the transforaminal epidural injection she got in April is still continuing to provide additional relief. She states she has not even needed to use her compounding cream as much. She states her pain is much more tolerable and she has been able to increase her activity following these injections. Patient is currently managed with [place] 7.5 mg 4 times a day from Dr. Mendoza's office and pregabalin 75 mg twice a day from our office. Patient denies any side effects from these medications. Her Yuri is [id number]. Its been reviewed and appropriate. Review of Systems: General: No recent weight changes, no fever, no sleep disturbances Respiratory: No cough, no shortness of air, no recurring pulmonary infections Cardiovascular/peripheral vascular: No chest pain, no palpitations, no edema, no shortness of breath Gastrointestinal: No new onset incontinence, normal bowel movements reported Genitourinary: No new onset incontinence Musculoskeletal: Low back pain Psychiatric: [Normal mood/affect] Neurological: [Denies weakness in extremities], [denies balance issues] Objective:: Physical Exam: General: Alert and oriented x3, no acute distress, pleasant and cooperative Lungs: Respirations even and unlabored, symmetrical chest expansion Eyes: PERRL Musculoskeletal: Flexion and extension of lumbar [spine] somewhat guarded secondary to pain, [antalgic gait noted] Neurological: Speech clear, no gross sensory deficit Assessment:: degenerative disc disease of lumbar spine with lumbar radiculopathy symptoms, left hip pain, left shoulder pain Plan:: Patient has had significant improvement following her intra-articular injection and does not require any additional injective therapy. I will refill her pregabalin 75 mg twice a day and provide a 1 month supply of this medication. Patient will return to clinic in 1 month for reevaluation of symptoms, medication refill and follow-up. Patient has been instructed to contact the clinic with any concerns before the next appointment. Dr. Sorensen has reviewed this note and agrees with this plan of care. This note was dictated using voice recognition software and make contain errors or omissions. [facility] Disclaimer: The information contained in this section may have been updated after the patient was seen, as this information can be updated by other users. Medical History History of pacemaker Hyperlipidemia Hypertension Surgical History History of hip surgery History of hysterectomy History of shoulder surgery Family History Other No significant family history Social History Smoking Status: Never smoker alcohol intake: never current occupational status: retired Travel in the last 8 weeks: None household members: spouse housing: house current occupational exposures/hazards: No caffeine: Yes
[2022-07-06 12:53] VITALS: BP 114/68; PULSE 78; RESP 18; O2SAT 98; BMI 35.4
== END | disposition home or self-care (01) ==
PROVIDERS: PCP Internal Medicine Adolescent Medicine; Visit Provider Nurse Practitioner Family
DX: M51.16 Intervertebral disc disorders with radiculopathy, lumbar region (principal); M25.512 Pain in left shoulder; M25.552 Pain in left hip
CPT/HCPCS: 99212; G0463

== ENCOUNTER 2022-07-17 10:29 | Emergency (ER) | payer MEDICARE, SELFPAY ==
[2022-07-17] VITALS (7 sets, daily range): BP systolic 119–164; BP diastolic 60–74; PULSE 62–82; RESP 16–24; TEMP 36.6; O2SAT 96–98; BMI 35.4
--- NOTE | 2022-07-17 10:27 | ECG_ITS ---
APPROVED REPORT Exam: Resting ECG HR:72 bpm ECG Measurements Heart Rate 72 AXES NM 172 P 269 QRSd 89 QRS 27 QT 370 T 50 QTc 393 Conclusion ELECTRONIC ATRIAL PACEMAKER ABNORMAL RHYTHM ECG WARNING: DATA QUALITY MAY AFFECT INTERPRETATION UNCONFIRMED REPORT Electronically signed by : Jose Mendoza MD 07/18/2022 07:14:36
--- NOTE | 2022-07-17 10:40 | HMH.EDGENADL ---
Discharge Plan Disposition Patient Disposition: Home, Self-Care Prescriptions Prescriptions: No Action Complete Multivitamin tablet 1 tab PO DAILY aspirin [Adult Low Dose Aspirin] 81 mg tablet,delayed release (DR/EC) 81 mg PO DAILY calcium carbonate-vitamin D3 [Os-Brodie 500 + D3] 500 mg(1,250mg) -200 unit tablet 1 tab PO BID baclofen 10 mg tablet 10 mg PO TID alendronate 70 mg tablet 70 mg PO QWEEK pantoprazole 40 mg tablet,delayed release (DR/EC) 40 mg PO BID furosemide 40 mg tablet 20 mg PO DAILY PRN (Reason: diuretic) isosorbide mononitrate 60 mg tablet extended release 24 hr 60 mg PO DAILY pravastatin 80 mg tablet 80 mg PO DAILY lisinopril 40 mg tablet 40 mg PO DAILY spironolactone 25 mg tablet 12.5 mg PO DAILY Bystolic 2.5 mg tablet 2.5 mg PO DAILY rivaroxaban 20 MG tablet 20 mg PO DAILY pregabalin 75 MG capsule 75 mg PO BID Qty: 60 2RF Referrals Follow up/Referrals: Provider,Referral, MD [Referring] - See instructions Activity Restrictions/Add. Instructions Additional Instructions/Restrictions: Please follow-up with your primary care doctor and your [facility] within 1 week. Clinical Impressions Clinical Impression: Chronic dyspnea Discharge ED Provider: Raymond Johnson General Adult HPI General Chief complaint: Chest Pain Stated complaint: SOA, chest pain Time Seen by Provider: 07/17/22 10:40 Mode of Arrival: Ambulatory Source of Information: Patient Limitations: No Limitations Description of Symptoms (Recalled from ER Triage Doc. by RN): Presents via POV d/t SOA, general weakness, posterior head pain, and intermittent chest pain x 1 wk that has progressively gotten worse. Precipitating factor, exertion. Alleviating factor, rest. Hx of pacemaker, +xalrelto, Asa 81mg. History of Present Illness HPI narrative: Patient is an 77-year-old presenting today with multiple complaints. She states that her primary complaint is dyspnea and this has been going on chronically she states but has been intermittently worsening over the last week. She denies any significant lower extremity swelling is out of proportion to what is normal no asymmetric swelling. No hemoptysis. She is on Xarelto. She states that she has been having some discomfort in her chest that is been going on for 1 week to nonexertional in nature not associated with diaphoresis or nausea and nonradiating. 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 Related Data Home Medications Medication Instructions Recorded Confirmed alendronate 70 mg tablet 70 mg PO QWEEK Bone loss 12/23/17 07/06/22 aspirin 81 mg tablet,delayed 81 mg PO DAILY heart health 12/23/17 07/06/22 release (Adult Low Dose Aspirin) baclofen 10 mg tablet 10 mg PO TID muscle spasms 12/23/17 07/06/22 calcium carbonate 500 mg-vitamin 1 tab PO BID suppliment 12/23/17 07/06/22 D3 5 mcg (200 unit) tablet (Os-Brodie 500 + D3) furosemide 40 mg tablet 20 mg PO DAILY PRN diuretic 12/23/17 07/06/22 isosorbide mononitrate 60 mg 60 mg PO DAILY Chest pain 12/23/17 07/06/22 tablet,extended release 24 hr lisinopril 40 mg tablet 40 mg PO DAILY High blood pressure 12/23/17 07/06/22 multivitamin,[id number]-[id number] 1 tab PO DAILY SUPPLIMENT 12/23/17 07/06/22 (Complete Multivitamin tablet) nebivolol 2.5 mg tablet (Bystolic) 2.5 mg PO DAILY Hypertension 12/23/17 07/06/22 pantoprazole 40 mg tablet,delayed 40 mg PO BID GERD 12/23/17 07/06/22 release pravastatin 80 mg tablet 80 mg PO DAILY Cholesterol 12/23/17 07/06/22 spironolactone 25 mg tablet 12.5 mg PO DAILY fluid retention 12/23/17 07/06/22 rivaroxaban 20 mg tablet 20 mg PO DAILY Blood thinner 09/02/21 07/06/22 Previous Rx's Medication Instructions Recorded pregabalin 75 mg capsule 75 mg PO BID Pain #60 caps 07/06/22 Allergies Allergy/AdvReac Type Severity Reaction Status Date / Time diltiazem [DILTIAZEM] Allergy Intermediate HEART Ve
--- NOTE | 2022-07-17 10:45 | XR_ITS ---
FINAL REPORT CLINICAL HISTORY: dyspnea FINDINGS: SINGLE VIEW CHEST A left subclavian pacing device is present. The heart size is normal. The mediastinum is within normal limits. No acute pulmonary abnormality is identified. There is no evidence of pneumothorax. The bony thorax is intact. IMPRESSION: No acute cardiopulmonary process. Reviewed, Interpreted and Dictated by Lele Rinaldi III, MD Transcribed by Carmenza Vasquez Authenticated and [facility]
[2022-07-17 10:56] LABS: Basophils % 0.2 % (0.1-2.0); Eosinophils # 0.4 K/mm3 (0.0-0.4); Eosinophils % 3.5 % (0.1-12.0); Hematocrit 36.4 % (37.0-47.0); Hemoglobin 11.7 g/dL (12.2-16.2); Mean Corpuscular HGB Conc 32.2 g/dL (31.8-35.4); Mean Platelet Volume 8.8 fl (7.4-10.4); Monocytes # 0.8 K/mm3 (0.1-1.0); Monocytes % 6.7 % (1.7-9.3); Neutrophils # 8.1 K/mm3 (1.8-7.8); Neutrophils % 71.5 % (37.0-80.0); Platelet Count 472 K/mm3 (142-424); Red Blood Count 4.18 M/mm3 (4.20-5.40); Red Cell Distribution Width 13.7 % (11.5-17.5); White Blood Count 11.3 K/mm3 (4.8-10.8)
[2022-07-17 10:58] LABS: Chloride 103 mmol/L (98-107); Potassium 4.5 mmoL/L (3.5-5.1); Sodium 139 mmol/L (136-145)
[2022-07-17 11:00] LABS: Alanine Aminotransferase 28 U/L (12-78); Aspartate Amino Transferase 33 U/L (14-36); Blood Urea Nitrogen 27 mg/dl (7-17); Creatinine Clearance Estimated 50 mL/min (50-200); Estimated Glomerular Filt Rate 40 ml/min (>60); GFR (African American) 48 ML/MIN (>60)
[2022-07-17 11:01] LABS: Albumin Level 3.6 g/dl (3.5-5.0); Albumin/Globulin Ratio 0.9 (1.1-1.8); Alkaline Phosphatase 114 U/L (38-126); Anion Gap 13.5 mEq/L (5-15); Bilirubin,Total 0.5 mg/dl (0.2-1.3); Calcium 9.5 mg/dl (8.4-10.2); Carbon Dioxide 27 mmol/L (22.0-30.0); Globulin 3.8 g/dL (1.3-3.2); Glucose 118 mg/dl (74-100); Total Protein,Serum 7.4 g/dl (6.3-8.2)
[2022-07-17 11:12] LABS: NT Pro Brain Natriuretic Pep. 493 pg/mL (0-450)
[2022-07-17 11:14] LABS: Troponin I < 0.01 ng/ml (0.00-0.034)
[2022-07-17 11:26] LABS: D-Dimer 0.81 ug/mL (0.0-0.5)
--- NOTE | 2022-07-17 11:57 | PC.NURSE ---
pt to bathroom
== END 2022-07-17 13:02 | disposition home or self-care (01) ==
PROVIDERS: Emergency Provider Student in an Organized Health Care Education/Training Program; PCP Internal Medicine Adolescent Medicine
DX: R07.9 Chest pain, unspecified (principal); R06.02 Shortness of breath; R53.1 Weakness; R51.9 Headache, unspecified; Z79.01 Long term (current) use of anticoagulants
CPT/HCPCS: 71045; 80053; 83880; 84484; 85025; 85378; 93005; 99285

== ENCOUNTER → 2023-01-01 09:15 | Outpatient (POV) | payer MEDICARE, SELFPAY ==
--- OUTSIDE RECORDS SUMMARY | 2023-01-01 09:19 | XMS_ITS | Patient Health Record ---
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 Name Role Phone Jose Mendoza Primary Care Provider Telma Francois Unavailable [phone] ALLERGIES Allergen (clinical drug ingredient) Drug/Non Drug Allergy documented on EMR Reaction Allergy Type Onset Date Status oseltamivir Tamiflu dizziness Drug Allergy Activ e RESULTS Component Value Reference Range Notes Rapid Strep Reviewed date:03/30/2022 12:48:16 PM Interpretation:Positive Performing Lab: Notes/Report: Positive Rapid screen H-TVITD Reviewed date:03/09/2022 09:11:00 AM Interpretation: Performing Lab: Notes/Report: TVITD 40.2 30-100 ng/mL Deficient <20 ng/mL Insufficient 20-30 ng/mL Sufficient 30-100 ng/mL Potential Toxicity >100 ng/mL M-Lipid Panel Reviewed date:03/09/2022 09:11:00 AM Interpretation: Performing Lab: Notes/Report: Patient Fasting? Y TRIG 224 30-150 mg/dl CHOL 169 140-200 mg/dl DLDL 77.08 100-129 mg/dL VLDL 45 0-40 mg/dL HDL 48 40-60 mg/dl CHLHDL 3.5 1-3.5 M-Comprehensive Metabolic Pa ilana Reviewed date:03/09/2022 09:11:00 AM Interpretation: Performing Lab: Notes/Report:
--- NOTE | 2023-01-01 09:37 | EXP.PAIN.SOA ---
[facility] Pain Management SOAP Note Subjective:: This patient is a very pleasant 77-year-old female that comes our clinic today for follow-up regarding left shoulder pain. Patient has 5/5 strength in the left arm. However, she has limited range of motion secondary to left shoulder pain. Patient has been told by orthopedics she has partial rotator cuff tear as well as arthritis in the left shoulder. Surgery is not an option for her at this time. She received a left shoulder intra-articular injection 06/16/2022. She reports 3 to 4 months of significant improvement terms of her overall left shoulder pain following the injection. She describes the left shoulder pain is constant, dull, aching. She rates the pain 8/10. Patient cares for her 8-year-old special needs grandson. She does a lot of pulling, lifting, tugging. Patient also takes [address] 7.5 mg 1 p.o. 4 times daily from her PCP. Also Lyrica 75 mg 1 p.o. twice daily from our office. Patient reports pain medicine helps significantly in terms of her overall pain. She does not report any side effects from the medications. Patient's Yuri #[id number] been reviewed and appropriate.. Objective:: Patient is awake alert [place] x3. In no acute distress. Flexion-extension lumbar spine somewhat guarded secondary to pain. Deep tendon reflexes upper lower extremities normal. Motor strength upper and lower extremities normal. There is no gross sensory deficit. Gait is antalgic. Patient requires walker for stability. Assessment:: Degenerative disc lumbar spine multilevels. Lumbar radiculopathy. DJD left shoulder. Chronic left shoulder pain Plan:: We will plan left intra-articular shoulder injection of cortisone. We will refill the patient's Lyrica 75 mg 1 p.o. twice daily. [facility] Disclaimer: The information contained in this section may have been updated after the patient was seen, as this information can be updated by other users. Medical History (Updated 07/17/22 @ 12:41 by Raymond Johnson MD) History of pacemaker Hyperlipidemia Hypertension Surgical History History of hip surgery History of hysterectomy History of shoulder surgery Family History Other No significant family history Social History Smoking Status: Never smoker alcohol intake: never substance use type: denies use current occupational status: retired Travel in the last 8 weeks: None household members: spouse housing: house current occupational exposures/hazards: No caffeine: Yes
[2023-01-01 10:07] VITALS: BP 179/83; PULSE 82; RESP 18; O2SAT 96; BMI 35.2
== END | disposition home or self-care (01) ==
PROVIDERS: PCP Internal Medicine Adolescent Medicine; Visit Provider Nurse Anesthetist, Certified Registered
DX: M51.16 Intervertebral disc disorders with radiculopathy, lumbar region (principal); M19.012 Primary osteoarthritis, left shoulder; M25.512 Pain in left shoulder; G89.29 Other chronic pain
CPT/HCPCS: 99212; G0463

== ENCOUNTER 2023-01-08 13:41 | Day surgery (SDC) | payer MEDICARE, SELFPAY ==
--- OUTSIDE RECORDS SUMMARY | 2023-01-08 13:44 | XMS_ITS | Patient Health Record ---
Author Name Unknown Organization [facility] Address [address] [facility] [address] [place] [address] Care Team Providers Care Checker And Packer Name Role Phone TieshaJose meyer Primary Care Provider [phone] Telma Francois Unavailable [phone] ALLERGIES Allergen (clinical drug ingredient) Drug/Non Drug Allergy documented on EMR Reaction Allergy Type Onset Date Status oseltamivir Tamiflu dizziness Drug Allergy Activ e RESULTS Component Value Reference Range Notes M-Complete Blood Count Auto Diff Reviewed date:03/09/2022 09:11:00 AM Interpretation: Performing Lab: Notes/Report: WBC 7.1 4.8-10.8 K/mm3 RBC 4.39 4.20-5.40 M/mm3 HGB 12.9 12.2-16.2 g/dL HCT 42.9 37.0-47.0 % MCV 97.8 81-99 fl MCH 29.3 27.0-31.2 pg MCHC 30.0 31.8-35.4 g/dL RDW 14.2 11.5-17.5 % PLT 247 142-424 K/mm3 MPV 10.2 7.4-10.4 fl NE% 45.4 37.0-80.0 % LY% 42.7 10-50 % MO% 7.4 1.7-9.3 % EO% 3.1 0.1-12.0 % BA% 1.4 0.1-2.0 % NE# 3.2 1.8-7.8 K/mm3 LY# 3.1 0.7-4.5 K/mm3 MO#
[2023-01-08 13:56] VITALS: BP 148/80; PULSE 90; RESP 18; TEMP 36.3; O2SAT 98; BMI 35.4
[2023-01-08 14:40] VITALS: BP 138/70; PULSE 64; RESP 18; O2SAT 98
--- NOTE | 2023-01-08 15:15 | EXP.PAIN.PRO ---
Procedure Date: 01/08/23 Time: 15:15 Anesthesiologist:: Adi Sorensen MD Complications:: None Pre-procedure Diagnosis:: Left shoulder pain with degenerative osteoarthritis Post-procedure Diagnosis:: Same Indications for Procedure:: This patient is a pleasant 77-year-old white female who we are treating for left shoulder pain with degenerative osteoarthritis. She has had previous injections in her shoulder which have done very well and helped her with her pain symptoms. Pain is returned we will do repeat left shoulder intra-articular injection today. Procedure Details:: Left shoulder intra-articular injection Informed consent was obtained risk and benefits of the procedure were explained to the patient. Patient was taken the procedure room. The left shoulder was prepped using ChloraPrep. A 25-gauge needle was used we injected 10 mL bupivacaine 0.25% and Depo-Medrol 40 mg into the left shoulder joint. Patient tolerated the procedure well with no complications. Plan and Disposition:: We will follow-up with this patient in 2 weeks. Will reevaluate symptoms at that time.
== END 2023-01-08 14:40 | disposition home or self-care (01) ==
LOC: SC.PAINP 13:42
PROVIDERS: PCP Internal Medicine Adolescent Medicine; Visit Provider Anesthesiology
DX: M19.012 Primary osteoarthritis, left shoulder (principal); M25.512 Pain in left shoulder
CPT/HCPCS: 20610; J1040

== ENCOUNTER → 2023-01-21 09:33 | Outpatient (POV) | payer MEDICARE, SELFPAY ==
--- NOTE | 2023-01-21 09:54 | EXP.PAIN.SOA ---
[facility] Pain Management SOAP Note Subjective:: TodayPatient is a pleasant 77-year-old female who presents today for follow-up of left shoulder intra-articular injection on 01/08/2023. We are currently treating the patient for degenerative disc disease of lumbar spine with lumbar radiculopathy symptoms, left shoulder pain, sacroiliitis. Today she rates her pain a 5 out of 10. Patient states she has had at least 95% improvement in her shoulder. She states she has been able to increase her activity with decreased pain and has better range of motion. Patient states that she is now able to even raise her hand up above her head with no pain. Patient had previously been unable to even put on deodorant due to the worsening pain. Patient that her left hip area is bothering her however it is still manageable and comes and goes with the pain. Patient has previously had left transforaminal injection as well as left SI injection. Patient is currently prescribed [place] 7.5 mg 4 times a day from her primary care provider and Lyrica 75 mg twice a day from our office. Patient denies any side effects from this medication. Her Yuri has been reviewed and is appropriate. Review of Systems: General: No recent weight changes, no fever, no sleep disturbances Respiratory: No cough, no shortness of air, no recurring pulmonary infections Cardiovascular/peripheral vascular: No chest pain, no palpitations, no edema, no shortness of breath Gastrointestinal: No new onset incontinence, normal bowel movements reported Genitourinary: No new onset incontinence Musculoskeletal: Left hip pain Psychiatric: [Normal mood/affect] Neurological: [Denies weakness in extremities], [denies balance issues] Objective:: Physical Exam: General: Alert and oriented x3, no acute distress, pleasant and cooperative Lungs: Respirations even and unlabored, symmetrical chest expansion Eyes: PERRL Musculoskeletal: Flexion and extension of lumbar [spine] somewhat guarded secondary to pain, [antalgic gait noted] Neurological: Speech clear, no gross sensory deficit Assessment:: Degenerative disc disease of lumbar spine with lumbar radiculopathy symptoms, left shoulder pain, sacroiliitis Plan:: I have discussed with the patient that we can do injection therapy for her hip pain however at this time she states it is manageable. We will follow-up with this on her next appointment. Patient still is getting significant relief in her left shoulder and does not need any additional injections at this site. At her last visit she was given a 3-month supply of her Lyrica and does not require any refills at this time. Patient will return to clinic in 1 month for reevaluation of symptoms and plan of care. Patient has been instructed to contact the clinic with any concerns before the next appointment. Dr. Sorensen has reviewed this note and agrees with this plan of care. This note was dictated using voice recognition software and make contain errors or omissions. [facility] Disclaimer: The information contained in this section may have been updated after the patient was seen, as this information can be updated by other users. Medical History History of pacemaker Hyperlipidemia Hypertension Surgical History History of hip surgery History of hysterectomy History of shoulder surgery Family History Other No significant family history Social History Smoking Status: Never smoker alcohol intake: never substance use type: denies use current occupational status: retired Travel in the last 8 weeks: None household members: spouse housing: house current occupational exposures/hazards: No caffeine: Yes
[2023-01-21 10:32] VITALS: BP 122/46; PULSE 70; RESP 18; O2SAT 96; BMI 35.4
== END ==
PROVIDERS: PCP Internal Medicine Adolescent Medicine; Visit Provider Nurse Practitioner Family
DX: M51.16 Intervertebral disc disorders with radiculopathy, lumbar region (principal); M25.512 Pain in left shoulder; M46.1 Sacroiliitis, not elsewhere classified
CPT/HCPCS: 99212; G0463

== ENCOUNTER → 2023-02-16 09:12 | Outpatient (POV) | payer MEDICARE, SELFPAY ==
--- OUTSIDE RECORDS SUMMARY | 2023-02-16 09:15 | XMS_ITS | Patient Health Record ---
Author Name Unknown Organization [facility] Address [address] [facility] [address] [place] [address] Care Team Providers Care [employer] Name Role Phone Jose Mendoza Primary Care Provider [phone] Telma Francois Unavailable [phone] ALLERGIES Allergen (clinical drug ingredient) Drug/Non Drug [...] 1.8-7.8 K/mm3 LY# 3.1 0.7-4.5 K/mm3 MO# 0.5 0.1-1.0 K/mm3 EO# 0.2 0.0-0.4 K/mm3 BA# 0.1 0-0.2 K/mm3 M-Comprehensive Metabolic Pa ilana Reviewed date:03/09/2022 09:11:00 AM Interpretation: Performing Lab: Notes/Report: NA 144 136-145 mmol/L K 3.9 3.5-5.1 mmoL/L CL 109 98-107 mmol/L CO2 27 22.0-30.0 mmol/L GAP 11.9 5-15 mEq/L BUN 28 7-17 mg/dl CREATT 1.30 0.52-1.04 mg/dl GFRAA 48 >60 ML/MIN EGFR 40 >60 ml/min GLU 95 74-100 mg/dl CA 9.1 8.4-10.2 mg/dl BILIT 0.5 0.2-1.3 mg/dl AST 32 14-36 U/L ALT 17 12-78 U/L TP 6.5 6.3-8.2 g/dl ALB 4.0 3.5-5.0 g/dl GLOB 2.5 1.3-3.2 g/dL AGRATIO 1.6 1.1-1.8 ALP 73 38-126 U/L M-Lipid Panel Reviewed date:03/09/2022 09:11:00 AM Interpretation: Performing Lab: Notes/Report: Patient Fasting? Y TRIG 224 30-150 mg/dl CHOL 169 140-200 mg/dl DLDL 77.08 100-129 mg/dL VLDL 45 0-40 mg/dL HDL 48 40-60 mg/dl CHLHDL 3.5 1-3.5 H-TVITD Reviewed date:03/09/2022 09:11:00 AM Interpretation: Performing Lab: Notes/Report: TVITD 40.2 30-100 ng/mL Deficient <20 ng/mL Insufficient 20-30 ng/mL Sufficient 30-100 ng/mL Potential Toxicity >100 ng/mL Rapid Strep Reviewed date:03/30/2022 12:48:16 PM Interpretation:Positive Performing Lab: Notes/Report: Positive Rapid screen VITAMIN D,25-OH,TOTAL,IA (17 306) Reviewed date:06/15/2022 08:45:54 AM Interpretation: Performing Lab:CB, [facility] [id number] [facility] [id number] Dewayne Tamayo Notes/Report: NON-FASTING; NON-FASTING; NON-FASTING; NON-FASTING FASTING:NO FASTING: NO VITAMIN D,25-OH,TOTAL,IA 44 30-100 ng/mL Vitamin D Status 25-OH Vitamin D: Deficiency: <20 ng/mL Insufficiency: 20 - 29 ng/mL Optimal: > or = 30 ng/mL For 25-OH Vitamin D testing on patients on D2-supplementation and patients for whom quantitation of D2 and D3 fractions is required, the QuestAssureD(TM) 25-OH VIT D, (D2,D3), LC/MS/MS is recommended: order code 90438 (patients >2yrs). See Note 1 Note 1 For additional information, please refer to http://education.Pushkart/faq/MII819 (This link is being provided for informational/ educational purposes only.) CBC (INCLUDES DIFF/PLT) (639 9) Reviewed date:06/15/2022 08:45:54 AM Interpretation: Performing Lab:JOANN [facility] [id number] [facility] HospitalIgbtEH[address] Dewayne Tamayo Notes/Report: NON-FASTING; NON-FASTING; NON-FASTING; NON-FASTING FASTING:NO FASTING: NO WHITE BLOOD CELL COUNT 6.4 3.8-10.8 Thousand/ uL RED BLOOD CELL COUNT 4.06 3.80-5.10 Million/uL HEMOGLOBIN 11.9 11.7-15.5 g/dL HEMATOCRIT 36.8 35.0-45.0 % MCV 90.6 80.0-100.0 fL MCH 29.3 27.0-33.0 pg MCHC 32.3 32.0-36.0 g/dL RDW 14.1 11.0-15.0 % PLATELET COUNT 211 140-400 Thousand/uL MPV 12.2 7.5-12.5 fL ABSOLUTE NEUTROPHILS 2694 5133-6658 cells/uL ABSOLUTE LYMPHOCYTES 2784 850-3900 cells/uL ABSOLUTE MONOCYTES 723 200-950 cells/uL ABSOLUTE EOSINOPHILS 160 15-500 cells/uL ABSOLUTE BASOPHILS 38 0-200 cells/uL NEUTROPHILS 42.1 LYMPHOCYTES 43.5 MONOCYTES 11.3 EOSINOPHILS 2.5 BASOPHILS 0.6 COMPREHENSIVE METABOLIC PANE L (99228) Reviewed date:06/15/2022 08:45:54 AM Interpretation: Performing Lab:JOANN [employer] [id number] [employer], [place] [id number] Dewayne Tamayo Notes/Report: NON-FASTING; NON-FASTING; NON-FASTING; NON-FASTING FASTING:NO FASTING: NO GLUCOSE 90 65-139 mg/dL Non-fasting reference interval UREA NITROGEN (BUN) 27 7-25 mg/dL CREATININE 1.64 0.60-1.00 mg/dL EGFR 32 > OR = 60 mL/min/1.73m2 The eGFR is based on the CKD-EPI 2020 equation. To calculate the new eGFR from a previous Creatinine or Cystatin C result, go to https://www.kidney.org/pro fessionals/ kdoqi/gfr%5Fcalculator BUN/CREATININE RATIO 16 6-22 (calc) SODIUM 144 135-146 mmol/L POTASSIUM 4.6 3.5-5.3 mmol/L CHLORIDE 109 98-110 mmol/L CARBON DIOXIDE 27 20-32 mmol/L CALCIUM 9.4 8.6-10.4 mg/dL PROTEIN, TOTAL 6.4 6.1-8.1 g/dL ALBUMIN 3.9 3.6-5.1 g/dL GLOBULIN 2.5 1.9-3.7 g/dL (calc) ALBUMIN/GLOBULIN RATIO 1.6 1.0-2.5 (calc) BILIRUBIN, TOTAL 0.5 0.2-1.2 mg/dL ALKALINE PHOSPHATASE 61 37-153 U/L AST 18 10-35 U/L ALT 13 6-29 U/L LIPID PANEL, STANDARD (7600) Reviewed date:06/15/2022 08:45:54 AM Interpretation: Performing Lab:JOANN [employer] [id number] [employer] [place] [id number] Dewayne Tamayo Notes/Report: NON-FASTING; NON-FASTING; NON-FASTING; NON-FASTING FASTING:NO FASTING: NO CHOLESTEROL, TOTAL 167 <200 mg/dL HDL CHOLESTEROL 58 > OR = 50 mg/dL TRIGLYCERIDES 173 <150 mg/dL LDL-CHOLESTEROL 82 Reference range: <100 Desirable range <100 mg/dL for primary prevention; <70 mg/dL for patients with CHD or diabetic patients with > or = 2 CHD risk factors. LDL-C is now calculated using the Steven calculation, which is a validated novel method providing better accuracy than the Friedewald equation in the estimation of LDL-C. Alonzo REYES et al. RITA. 2013;310(56): 2009-4054 (http://education.City [employer] Finance/faq/MBF882) CHOL/HDLC RATIO 2.9 <5.0 (calc) NON HDL CHOLESTEROL 109 <130 mg/dL (calc) For patients with diabetes plus 1 major ASCVD risk factor, treating to a non-HDL-C goal of <100 mg/dL (LDL-C of <70 mg/dL) is considered a therapeutic option. MEDICATIONS Medication SIG (Take, Route, Frequency, Duration) Notes Start Date End Date Status baclofen 10 mg 1 tab(s) orally 3 times a day for 90 days Active Acetaminophen-Hydrocodone Bitartrate 325 mg-7.5 mg 1 tab(s) orally every 6 hours for 30 days 01/25/2023 Active Peridex 0.12% 15 mL orally 2 times a day for 30 days 12/31/2022 Active isosorbide mononitrate 60 mg 1 tab(s) or ally once a day (in the morning) for 90 days Active Nebivolol 10 mg 1 tab(s) orally once a day for 90 days Active lisinopril 40 mg 1 tab(s) orally once a day for 90 days Active pravastatin 80 mg 1 tab(s) orally once a day for 90 days Active alendronate 70 mg 1 tab(s) orally once a week for 90 days Active Gemtesa 75 mg 1 tab(s) orally once a day for 90 days Active pantoprazole 40 mg 1 tab(s) orally twic e a day for 90 days Active multivitamin Multiple Vitamins 1 cap(s) orally once a day Active Xarelto 20 mg TAKE 1 TABLET ONE TIME DAILY IN THE EVENING for 90 days Active methocarbamol 500 mg 1-2 tab(s) orally 3 times a day for 5 day(s) 03/26/2020 Active hydroCHLOROthiazide 25 mg 1/2 tab(s) ora lly once a day for 90 days Active aspirin 81 mg 1 tab(s) orally once a day Active furosemide 40 mg 1/2 tablet orally once a day for 90 days Active Os-Brodie 500 1250 mg 1 tab(s) orally bid Active IMMUNIZATIONS Vaccine Route Administration Date Status Comme nts Covid Yokasta Unknown 05/02/2020 Administered Covid Yokasta Unknown 12/26/2020 Administered Fluzone High Dose IM Intramuscular 11/26/2016 Administered Fluzone High Dose IM Intramuscular 11/23/2017 Administered Fluzone High Dose IM Intramuscular 11/29/2018 Administered Fluzone High Dose IM Intramuscular 11/28/2019 Administered Fluzone High Dose IM Intramuscular 12/10/2020 Administered Fluzone High Dose IM Intramuscular 11/25/2021 Administered Fluzone High Dose IM Intramuscular 12/08/2022 Administered Influenza (Fluzone)--Medicare only IM Intramuscular 12/03/2014 Administered Influenza (Fluzone)--Medicare only IM Intramuscular 11/15/2015 Administered Fluvirin--Influenza vaccine 3+ year IM Intramuscular 11/23/2012 Administered Fluvirin--Influenza vaccine 3+ year IM Intramuscular 11/24/2013 Administered Adacel (Tdap) Unknown 04/23/2015 Administered Pneumovax-23 (pneumococccal vaccine polyvalent)2 years or older IM Intramuscular 11/01/2013 Administered Prevnar PCV-13 (Pneumococcal conjugate 13) IM Intramuscular 01/22/2015 Administered Prevnar PCV-20 (Pneumococcal conjugate 20) IM Intramuscular 08/26/2021 Administered SOCIAL HISTORY Sex Assigned At : Social History Observation Description Sex Assigned At Unknown PROBLEMS Problem Type ICD Code Onset Dates Problem Status W/U Status Risk SNOMED Code Notes Problem Chronic pain syndrome (G89.4) Active confirmed 150545613 Problem Urge incontinence (N39.41) Active confirmed 91778576 Problem HTN (hypertension) (I10) Active confirmed 73009523 Problem Vitamin D deficiency (E55.9) Active confirmed 72147187 Problem Osteoporosis (M81.0) Active confirmed 6 3420370 Problem Hyperlipemia, idiopathic familial (E78.5) Active confirmed 264738602 Problem GERD without esophagitis (K21.9) Active confirmed 371102175 Problem BMI 34.0-34.9,adult (Z68.34) Active confirmed 260162852 Problem Other chronic pain (G89.29) Active confirmed 53440300 Problem Status cardiac pacemaker (Z95.0) Active confirmed 622834609 Problem 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) Active confirmed 0832735087355 Problem Primary osteoarthritis involving multiple joints (M15.0) Active confirmed 779221323 Problem Urinary incontinence, urge (N39.41) Active confirmed 93294426 Problem Sacroiliitis (M46.1) Active confirmed 5 0672425 Problem BMI 35.0-35.9,adult (Z68.35) Active confirmed 097348046 Problem Gastroesophageal reflux disease with esophagitis without hemorrhage (K21.00) Active confirmed 904722395 VITAL SIGNS Heart Rate 72 /min 12/17/2022 Temperature 98 degrees Fahrenheit 12/17/2022 Blood pressure diastolic 68 mm Hg 12/17/2022 Height 5 ft 3 in in 12/17/2022 Blood pressure systolic 118 mm Hg 12/17/2022 Weight 205 lbs 12/17/2022 BMI 36.31 kg/m2 12/17/2022 Encounters Encounter Location Date Provider Diagnosis [facility] [address] [address] 03/05/2022 Jose Mendoza Gastroesophageal ref lux disease with esophagitis without hemorrhage K21.00 ; Hyperlipemia, idiopathic familial E78.5 ; Primary osteoarthritis involving multiple joints M15.0 ; Vitamin D deficiency E55.9 ; Atherosclerosis of nikolski coronary artery of nik[place]ki heart without angina pectoris I25.10 and Routine medical exam Z00.[address] [address] 03/30/2022 Telma McNees Sore throat J02.9 an d Strep pharyngitis J02.[address] [address] 06/11/2022 Jose Mendoza Hyperlipemia, idiopa thic familial E78.5 ; Primary osteoarthritis involving multiple joints M15.0 ; Vitamin D deficiency E55.9 ; Atherosclerosis of nikolski coronary artery of n[place] heart without angina pectoris I25.10 ; BMI 35.0-35.9,adult Z68.35 and Routine medical exam Z00.[address] [address] 09/10/2022 Jose Mendoza HTN (hypertension) I 10 ; Primary osteoarthritis involving multiple joints M15.0 and Chronic pain syndrome G89.4 [facility] [address] [address] 12/08/2022 Jose Mendoza Immunization(s) administered Z23 [facility] [address] [address] 12/17/2022 Jose Mendoza Primary osteoarthrit is involving multiple joints M15.0 ; Chronic pain syndrome G89.4 ; HTN (hypertension) I10 and Atherosclerosis of nikolski coronary artery of nikolski heart without angina pectoris I25.10 [facility] [address] [address] 02/26/2022 Jose Mendoza HTN (hypertension) I 10 [facility] [address] [address] 03/09/2022 Jose Mendoza [facility] [address] [facility] [address] [place] [address] 03/12/2022 Jose Mendoza Acute deep vein thrombosis (DVT) of right peroneal vein I82.451 [facility] [address] [place] [address] 04/02/2022 Jose Mendoza Primary osteoarthrit is involving multiple joints M15.0 [facility] [address] [address] 04/30/2022 Jose Mendoza Primary osteoarthrit is involving multiple joints M15.0 [facility] [address] [address] 05/12/2022 Jose Mendoza Gastroesophageal ref lux disease with esophagitis without hemorrhage K21.00 [facility] [address] [address] 06/01/2022 Jose Mendoza Primary osteoarthrit is involving multiple joints M15.0 [facility] [address] [address] 06/11/2022 Jose Mendoza [facility] [address] [address] 07/01/2022 Jose Mendoza Primary osteoarthrit is involving multiple joints M15.0 [facility] [address] [address] 07/23/2022 Jose Mendoza [facility] [address] [place] [address] 07/27/2022 Jose Besson [facility] [address] [place] [address] 07/31/2022 Jose Besson Primary osteoarthrit is involving multiple joints M15.0 [facility] [address] [place] [address] 08/28/2022 Jose Besson Primary osteoarthrit is involving multiple joints M15.0 [facility] [address] [place] [address] 09/04/2022 Jose Besson [facility] [address] [place] [address] 09/16/2022 Joes Besson Breast cancer screen ing by mammogram Z12.31 [facility] [address] [place] [address] 09/29/2022 Jose Besson Primary osteoarthrit is involving multiple joints M15.0 [facility] [address] [place] [address] 10/29/2022 Jose Besson Primary osteoarthrit is involving multiple joints M15.0 [facility] [address] [place] [address] 11/26/2022 Jose Besson Primary osteoarthrit is involving multiple joints M15.0 [facility] [address] [place] [address] 12/17/2022 Jose Besson [facility] [address] [place] [address] 12/25/2022 Jose Besson Primary osteoarthrit is involving multiple joints M15.0 [facility] [address] [place] [address] 12/31/2022 Jose Besson [facility] [address] [place] [address] 01/25/2023 Jose Besson Primary osteoarthrit is involving multiple joints M15.0 ASSESSMENTS Encounter Date Diagnosis Assessment Notes Treatment Notes Treatment Clinical Notes 02/26/2022 HTN (hypertension) (ICD-10 - I10) 03/05/2022 Hyperlipemia, idiopathic familial (ICD-10 - E78.5) 03/05/2022 Gastroesophageal reflux disease with esophagitis without hemorrhage (ICD-10 - K21.00) No evidence of bleeding. Bump up pantoprazole to twice daily given her history of esophagitis 04/02/2022 Primary osteoarthritis involving multiple joints (ICD-10 - M15.0) 04/30/2022 Primary osteoarthritis involving multiple joints (ICD-10 - M15.0) 05/12/2022 Gastroesophageal reflux disease with esophagitis without hemorrhage (ICD-10 - K21.00) 06/11/2022 Hyperlipemia, idiopathic familial (ICD-10 - E78.5) Labs ordered and reviewed as noted. No changes in plan 07/01/2022 Primary osteoarthritis involving multiple joints (ICD-10 - M15.0) 07/31/2022 Primary osteoarthritis involving multiple joints (ICD-10 - M15.0) 09/16/2022 Breast cancer screening by mammogram (ICD-10 - Z12.31) 09/29/2022 Primary osteoarthritis involving multiple joints (ICD-10 - M15.0) 12/08/2022 Immunization(s) administered (ICD-10 - Z23) 01/25/2023 Primary osteoarthritis involving multiple joints (ICD-10 - M15.0) 06/11/2022 Primary osteoarthritis involving multiple joints (ICD-10 - M15.0) On pain management as noted given high risk factors with NSAIDs. Stable. Normal refill patterns. Has been appropriate in regards to monitoring issues. 12/25/2022 Primary osteoarthritis involving multiple joints (ICD-10 - M15.0) 12/17/2022 Chronic pain syndrome (ICD-10 - G89.4) Patient has been compliant with our office and [place] regulations r.e. meds. No concerns on my part about diversion or misuse. Labs and Yuri reports reviewed and are appropriate. 12/17/2022 Primary osteoarthritis involving multiple joints (ICD-10 - M15.0) Dexamethasone 1 mL administered by me in the left deltoid. Continue other medications. Doing well with her pain medication as noted below 10/29/2022 Primary osteoarthritis involving multiple joints (ICD-10 - M15.0) 08/28/2022 Primary osteoarthritis involving multiple joints (ICD-10 - M15.0) 06/01/2022 Primary osteoarthritis involving multiple joints (ICD-10 - M15.0) 03/30/2022 Sore throat (ICD-10 - J02.9) 03/30/2022 Strep pharyngitis (ICD-10 - J02.0) Prescribed antibiotics as stated above and stressed importance of finishing complete course of antibiotics. Do not let anyone drink after the patient. Throw away toothbrush after abx complete. Discussed etiology and expected course of illness. Continue supportive care with PRN antipyretics, salt-water gargles, and cough drops/throat lozenges. Encourage PO hydration. Discussed the signs and symptoms of worsening condition and need for reassessment in clinic or ED. May return to school once afebrile for 24hrs. 11/26/2022 Primary osteoarthritis involving multiple joints (ICD-10 - M15.0) 09/10/2022 HTN (hypertension) (ICD-10 - I10) Blood pressure under good control. No changes in plan, up-to-date with labs to monitor her chronic medical problems. I will follow her up in 3 months to reassess pain control and for flu shot and wellness visit and 09/10/2022 Primary osteoarthritis involving multiple joints (ICD-10 - M15.0) 03/12/2022 Acute deep vein thrombosis (DVT) of right peroneal vein (ICD-10 - I82.451) 09/10/2022 Chronic pain syndrome (ICD-10 - G89.4) Patient has been compliant with our office and [place] regulations r.e. meds. No concerns on my part about diversion or misuse. Labs and Yuri reports reviewed and are appropriate. 12/17/2022 HTN (hypertension) (ICD-10 - I10) Stable. Blood pressure under excellent control. Labs normal. 03/05/2022 Primary osteoarthritis involving multiple joints (ICD-10 - M15.0) 06/11/2022 Vitamin D deficiency (ICD-10 - E55.9) 03/05/2022 Vitamin D deficiency (ICD-10 - E55.9) 06/11/2022 Atherosclerosis of nikolski coronary artery of nikolski heart without angina pectoris (ICD-10 - I25.10) No evidence of recurrent cardiac disease symptoms. On appropriate lipid management 12/17/2022 Atherosclerosis of nikolski coronary artery of nikolski heart without angina pectoris (ICD-10 - I25.10) No evidence of recurrence of disease. Continue current goal-directed therapy. Follow-up 3 months for labs. Up-to-date with vaccinations 06/11/2022 BMI 35.0-35.9,adult (ICD-10 - Z68.35) Elevated BMI as a health risk. Poor prognosis for improvement 03/05/2022 Atherosclerosis of nikolski coronary artery of nikolski heart without angina pectoris (ICD-10 - I25.10) 03/05/2022 Routine medical exam (ICD-10 - Z00.00) Overall patient is doing well. Good functional status in spite of her significant spondylolisthesis and arthritis. No recent falls. Depression screening negative. Up-to-date with vaccinations. Aged out of cancer screening. Lifelong non-smoker. 06/11/2022 Routine medical exam (ICD-10 - Z00.00) Lifelong non-smoker. No recent falls. Good functional status. Up-to-date with vaccinations. Out of range for mammogram and DEXA and colon screening. PLAN OF TREATMENT Pending Test Test Name Order Date Ultrasound : Abdomen 08/17/2012 Physical Therapy 11/10/2013 Physical Therapy 08/01/2019 Physical Therapy 04/08/2021 Mammogram : Bilateral 09/16/2022 Mammogram : Bilateral 03/07/2021 Occupational Therapy : Eval & Treatment 08/01/2019 H-VIT D, 1,25-HYDROXY 10/30/2016 H-VIT D, 25-HYDROXY 04/02/2016 C-CMP 02/27/2020 C-LIPID PANEL 02/27/2020 C-URINE CULTURE 11/23/2017 C-URINE CULTURE 11/11/2012 M-Vitamin D 25 Hydroxy 03/04/2021 M-Vitamin D 25 Hydroxy 03/05/2022 Next Appt Details Provider Name:Jose Mendoza, 03/02/2023 11:15:00 AM, [address], [address], Insurance Providers Payer Name Payer Address Payer Phone Subscriber Number Group Number Insured Name Patient Relationship to Insured Coverage Start Date Coverage End Date [employer] [address] [address] [place] [address] [id number] Gina Stone Self - patient is the insured MEDICATIONS ADMINISTERED Medication Instructions Date of Administration Dosage Notes Dexamethasone 4mg Injection 12/17/2022 4 mg Kenalog 40mg 06/23/2016 40 mg Kenalog 40mg 11/12/2016 40 mg Triamcinolone Acetonide 40mg Injection 02/23/2019 1 mL Triamcinolone Acetonide 40mg Injection 08/01/2019 1 mL Kenalog 07/24/2014 1 Kenalog 10/23/2014 1 mL Kenalog 01/09/2016 1 mL Kenalog 04/02/2016 1 mL MEDICAL (GENERAL) HISTORY Medical History History ICD Code osteoporosis - most recent DEXA scan 201 4 with improved bone density fractured right lower leg, 2011 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 appr opriate uds 06/12 hyperlipidemia CAD x 4 stents -- normal Nuc Med stress test 09/2022 GERD normal mammogram may 2018 - repeated a nd normal 02/2020 and normal 06/13 Last eye exam 11/2015 Surgical History Surgery Date(Month/Year) tubal hysterectomy francis in right femur from fx femur and sli pped and fell cardiac stents x4 pacemaker 10/2017 back 08/2020 Hospitalization History Reason Date(Month/Year) HTN 2012
[2023-02-16 09:29] VITALS: BP 141/71; PULSE 86; RESP 18; O2SAT 98; BMI 35.4
--- NOTE | 2023-02-16 09:31 | EXP.PAIN.PRO ---
Procedure Date: 02/16/23 Time: 09:00 Anesthesiologist:: Cody Ford CRNA Complications:: None
--- NOTE | 2023-02-16 09:31 | EXP.PAIN.SOA ---
[facility] Pain Management SOAP Note Subjective:: This patient is a very pleasant 77-year-old female comes our clinic today for follow-up visit regarding chronic left shoulder pain. Patient had intra-articular left shoulder injection on 01/08/2023. Patient reports 80% improvement terms of her overall left shoulder symptoms following injection. Overall, today she continues to report that she is better. However, she reports she can tell the pain is beginning to come back although, not in its entirety. Upon examination she has 5/5 strength in the left arm. My suspicion is supraspinatus tear to some degree. 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 She simply does not have time for any surgical intervention. Patient has had orthopedic surgery consultation in the past. She rates her pain 4/10. Objective:: Patient is awake alert [place] x 3. In no acute distress. Flexion-extension cervical lumbar spine somewhat guarded secondary to pain. Deep tendon reflexes upper and lower extremities normal. Motor strength upper and lower extremities normal. There is no gross sensory deficit. Gait is antalgic requiring up rollator for stability. Assessment:: DJD left shoulder. Rotator cuff tendinitis left shoulder. Plan:: Discussed in detail with the patient regarding repeat left shoulder injection. She wishes to proceed. Will schedule this for her mid March 2023. Also, I encouraged the patient to do physical therapy exercises. She reports she continues doing home exercise program with the left shoulder. Wall crawls, range of motion modalities. [facility] Disclaimer: The information contained in this section may have been updated after the patient was seen, as this information can be updated by other users. Medical History History of pacemaker Hyperlipidemia Hypertension Surgical History History of hip surgery History of hysterectomy History of shoulder surgery Family History Other No significant family history Social History Smoking Status: Never smoker alcohol intake: never substance use type: denies use current occupational status: retired Travel in the last 8 weeks: None household members: spouse housing: house current occupational exposures/hazards: No caffeine: Yes
== END | disposition home or self-care (01) ==
PROVIDERS: PCP Internal Medicine Adolescent Medicine; Visit Provider Nurse Anesthetist, Certified Registered
DX: M19.012 Primary osteoarthritis, left shoulder (principal); M75.42 Impingement syndrome of left shoulder
CPT/HCPCS: 99212; G0463

== ENCOUNTER 2023-04-06 08:43 | Day surgery (SDC) | payer MEDICARE, SELFPAY ==
--- OUTSIDE RECORDS SUMMARY | 2023-04-06 08:46 | XMS_ITS | Patient Health Record ---
Author Name Unknown Organization [facility] Address [address] [facility] [address] [place] [address] Care Team Providers Care Board Saw Runner Name Role Phone Jose Mendoza Primary Care Provider ALLERGIES Allergen (clinical drug ingredient) Drug/Non Drug Allergy documented on EMR Reaction Allergy Type Onset Date Status oseltamivir Tamiflu dizziness Drug Allergy Activ e RESULTS Component Value Reference Range Notes LIPID PANEL, STANDARD (7600) Reviewed date:03/12/2023 11:58:53 AM Interpretation: Performing Lab:JOANN, [facility] [id number] [facility] CenterBfrfAM[address] Dewayne Tamayo Notes/Report: NON-FASTING; NON-FASTING FASTING:NO FASTING: NO CHOLESTEROL, TOTAL 179 <200 mg/dL HDL CHOLESTEROL 61 > OR = 50 mg/dL TRIGLYCERIDES 201 <150 mg/dL If a non-fasting specimen was collected, consider repeat triglyceride testing on a fasting specimen if clinically indicated. Tulio et al. J. of Clin. Lipidol. 2015;9:129-169. LDL-CHOLESTEROL 88 Reference range: <100 Desirable range <100 mg/dL for primary prevention; <70 mg/dL for patients with CHD or diabetic patients with > or = 2 CHD risk factors. LDL-C is now calculated using the Alonzo-Isamar calculation, which is a validated novel method providing better accuracy than the Friedewald equation in the estimation of LDL-C. Alonzo REYES et al. RITA. 2013;310(19): 3778-3444 (http://education.iFlipd.com/faq/OZZ937) CHOL/HDLC RATIO 2.9 <5.0 (calc) NON HDL CHOLESTEROL 118 <130 mg/dL (calc) For patients with diabetes plus 1 major ASCVD risk factor, treating to a non-HDL-C goal of <100 mg/dL (LDL-C of <70 mg/dL) is considered a therapeutic option. DEMENTIA PANEL, RESTOREU(SAMUEL) ([id number]) Reviewed date:03/12/2023 11:58:53 AM Interpretation: Performing Lab:CB, [facility], [facility] HospitalRgnkPH[address] Dewayne Tamayo Notes/Report: NON-FASTING; NON-FASTING FASTING:NO FASTING: NO GLUCOSE 83 65-139 mg/dL Non-fasting reference interval UREA NITROGEN (BUN) 28 7-25 mg/dL CREATININE 1.31 0.60-1.00 mg/dL EGFR 41 > OR = 60 mL/min/1.73m2 BUN/CREATININE RATIO 21 6-22 (calc) SODIUM 141 135-146 mmol/L POTASSIUM 4.4 3.5-5.3 mmol/L CHLORIDE 105 98-110 mmol/L CARBON DIOXIDE 29 20-32 mmol/L CALCIUM 9.3 8.6-10.4 mg/dL PROTEIN, TOTAL 6.4 6.1-8.1 g/dL ALBUMIN 3.7 3.6-5.1 g/dL GLOBULIN 2.7 1.9-3.7 g/dL (calc) ALBUMIN/GLOBULIN RATIO 1.4 1.0-2.5 (calc) BILIRUBIN, TOTAL 0.5 0.2-1.2 mg/dL ALKALINE PHOSPHATASE 66 37-153 U/L AST 17 10-35 U/L ALT 12 6-29 U/L WHITE BLOOD CELL COUNT 7.2 3.8-10.8 Thousand/ uL RED BLOOD CELL COUNT 3.78 3.80-5.10 Million/uL HEMOGLOBIN 11.0 11.7-15.5 g/dL HEMATOCRIT 34.6 35.0-45.0 % MCV 91.5 80.0-100.0 fL MCH 29.1 27.0-33.0 pg MCHC 31.8 32.0-36.0 g/dL RDW 12.6 11.0-15.0 % PLATELET COUNT 227 140-400 Thousand/uL MPV 12.4 7.5-12.5 fL ABSOLUTE NEUTROPHILS 3499 5133-5803 cells/uL ABSOLUTE LYMPHOCYTES 2722 850-3900 cells/uL ABSOLUTE MONOCYTES 749 200-950 cells/uL ABSOLUTE EOSINOPHILS 187 15-500 cells/uL ABSOLUTE BASOPHILS 43 0-200 cells/uL NEUTROPHILS 48.6 LYMPHOCYTES 37.8 MONOCYTES 10.4 EOSINOPHILS 2.6 BASOPHILS 0.6 TSH 1.07 0.40-4.50 mIU/L VITAMIN B12 663 396-4712 pg/mL Please Note: Although the reference range for vitamin B12 is 200-1100 pg/mL, it has been reported that between 5 and 10% of patients with values between 200 and 400 pg/mL may experience neuropsychiatric and hematologic abnormalities due to occult B12 deficiency; less than 1% of patients with values above 400 pg/mL will have symptoms. FOLATE, SERUM >24.0 Reference Range Low: <3.4 Borderline: 3.4-5.4 Normal: >5.4 COMMENT If a patient with suspected dementia has a history of risk factors for sexually transmitted infections, blood testing for syphilis and human immunodeficiency virus (HIV) infection should be considered. For information on advanced diagnostic testing for dementia including Alzheimer's Disease please click on Frequently Asked Questions (FAQs) or visit the following link http://education.Kimble/faq/FAQ88 Enhanced report to follow. QUEST AD DETECT(TM), BETA AM YLOID 42/40 RATIO, P ([id number]) Reviewed date:03/12/2023 11:58:53 AM Interpretation: Performing Lab:GRICELDA [facility],[address] [facility] CenterCA[address] Angelica Armijo MD,PhD,LESLY Notes/Report: NON-FASTING ABETA 42 78 Reference Range: NOT ESTABLISHED ABETA 40 412 Reference Range: NOT ESTABLISHED ABETA 42/40 RATIO 0.189 > OR = 0.170 Plasma beta-amyloid 42/40 ratio Risk Table: Risk of Alzheimer's Disease: Lower Risk: > or = 0.170 Intermediate Risk: 0.150 - 0.169 Higher Risk: <0.150 The concentrations on this report only represent wild type Abeta 40 and 42. The variants of Abeta 40 and 42 are not detected in this assay. This test was developed and its analytical performance characteristics have been determined by [employer]. It has not been cleared or approved by FDA. This assay has been validated pursuant to the CLIA regulations and is used for clinical purposes. VITAMIN D,25-OH,TOTAL,IA (17 306) Reviewed date:06/15/2022 08:45:54 AM Interpretation: Performing Lab:JOANN [facility] [address] [facility], [place] MfbpWE[address] Dewayne Tamayo Notes/Report: NON-FASTING; NON-FASTING; NON-FASTING; NON-FASTING [...] D, (D2,D3), LC/MS/MS is recommended: order code [id number] (patients >2yrs). See Note 1 Note 1 For additional information, please refer to http://education.Arvia Technology/faq/IJM252 (This link is being provided for informational/ educational purposes only.) CBC (INCLUDES DIFF/PLT) (639 9) Reviewed date:06/15/2022 08:45:54 AM Interpretation: Performing Lab:JOANN [facility] [address] [facility], [facility] HospitalLfjkUQ[address] Dewayne Tamayo Notes/Report: NON-FASTING; NON-FASTING; NON-FASTING; NON-FASTING FASTING:NO FASTING: NO WHITE BLOOD CELL COUNT 6.4 3.8-10.8 Thousand/ uL RED BLOOD CELL COUNT 4.06 3.80-5.10 Million/uL HEMOGLOBIN 11.9 11.7-15.5 g/dL HEMATOCRIT 36.8 35.0-45.0 % MCV 90.6 80.0-100.0 fL MCH 29.3 27.0-33.0 pg MCHC 32.3 32.0-36.0 g/dL RDW 14.1 11.0-15.0 % PLATELET COUNT 211 140-400 Thousand/uL MPV 12.2 7.5-12.5 fL ABSOLUTE NEUTROPHILS 2694 5416-0277 cells/uL ABSOLUTE LYMPHOCYTES 2784 850-3900 cells/uL ABSOLUTE MONOCYTES 723 200-950 cells/uL ABSOLUTE EOSINOPHILS 160 15-500 cells/uL ABSOLUTE BASOPHILS 38 0-200 cells/uL NEUTROPHILS 42.1 LYMPHOCYTES 43.5 MONOCYTES 11.3 EOSINOPHILS 2.5 BASOPHILS 0.6 COMPREHENSIVE METABOLIC PANE L ([id number]) Reviewed date:06/15/2022 08:45:54 AM Interpretation: Performing Lab:JOANN [facility] [id number] [employer], [facility] in HandGcogVC[address] Dewayne Tamayo Notes/Report: NON-FASTING; NON-FASTING; NON-FASTING; NON-FASTING FASTING:NO FASTING: NO GLUCOSE 90 65-139 mg/dL Non-fasting reference interval UREA NITROGEN (BUN) 27 7-25 mg/dL CREATININE 1.64 0.60-1.00 mg/dL EGFR 32 > OR = 60 mL/min/1.73m2 The eGFR is based on the CKD-EPI 2020 equation. To calculate the new eGFR from a previous Creatinine or Cystatin C result, go to https://www.kidney.org/profes sionals/ kdoqi/gfr%5Fcalculator BUN/CREATININE RATIO 16 6-22 (calc) SODIUM [...] ALT 13 6-29 U/L LIPID PANEL, STANDARD ([id number]) Reviewed date:06/15/2022 08:45:54 AM Interpretation: Performing Lab:JOANN [facility] [address], MerlinBzmcZP[address] Dewayne Tamayo Notes/Report: NON-FASTING; NON-FASTING; NON-FASTING; NON-FASTING [...] of LDL-C. Alonzo REYES et al. RITA. 2013;310(39): 2810-9002 (http://education.iFlipd.com/faq/VZN623) CHOL/HDLC RATIO 2.9 <5.0 (calc) NON HDL CHOLESTEROL 109 <130 mg/dL (calc) For patients with diabetes plus 1 major ASCVD risk factor, treating to a non-HDL-C goal of <100 mg/dL (LDL-C of <70 mg/dL) is considered a therapeutic option. MEDICATIONS Medication SIG (Take, Route, Frequency, Duration) Notes Start Date End Date Status Peridex 0.12% 15 mL orally 2 times a day for 30 days 12/31/2022 Active alendronate 70 mg 1 tab(s) orally once a week for 90 days Active Acetaminophen-Hydrocodone Bitartrate 325 mg-7.5 mg 1 tab(s) orally every 6 hours for 30 days 03/25/2023 Active hydroCHLOROthiazide 25 mg 1/2 tab(s) ora lly once a day for 90 days Active baclofen 10 mg 1 tab(s) orally 3 times a day for 90 days Active aspirin 81 mg 1 tab(s) orally once a day Active pravastatin 80 mg 1 tab(s) orally once a day for 90 days Active Os-Brodie 500 1250 mg 1 tab(s) orally bid Active isosorbide mononitrate 60 mg 1 tab(s) or ally once a day (in the morning) for 90 days Active multivitamin Multiple Vitamins 1 cap(s) orally once a day Active Nebivolol 10 mg 1 tab(s) orally once a day for 90 days Active methocarbamol 500 mg 1-2 tab(s) orally 3 times a day for 5 day(s) 03/26/2020 Active Gemtesa 75 mg 1 tab(s) orally once a day for 90 days Active furosemide 40 mg 1/2 tablet orally once a day for 90 days Active pantoprazole 40 mg 1 tab(s) orally twic e a day for 90 days Active Xarelto 20 mg TAKE 1 TABLET ONE TIME DAILY IN THE EVENING for 90 days Active lisinopril 40 mg 1 tab(s) orally once a day for 90 days Active IMMUNIZATIONS Vaccine Route Administration Date Status Comme nts Adacel (Tdap) Unknown 04/23/2015 Administered Covid Yokasta Unknown 05/02/2020 Administered Covid Yokasta Unknown 12/26/2020 Administered Fluvirin--Influenza vaccine 3+ year IM Intramuscular 11/23/2012 Administered Fluvirin--Influenza vaccine 3+ year IM Intramuscular 11/24/2013 Administered Fluzone High Dose IM Intramuscular 11/26/2016 [...] Influenza (Fluzone)--Medicare only IM Intramuscular 11/15/2015 Administered Pneumovax-23 (pneumococccal vaccine polyvalent)2 years or [...] Problem Chronic pain syndrome (G89.4) Active confirmed 417367515 Problem Urge incontinence (N39.41) Active confirmed 00504193 Problem HTN (hypertension) (I10) Active confirmed 08722184 Problem Vitamin D deficiency (E55.9) Active confirmed 02873998 Problem Osteoporosis (M81.0) Active confirmed 6 8000809 Problem Hyperlipemia, idiopathic familial (E78.5) Active confirmed 922842313 Problem Mild cognitive impairment (G31.84) Active confirmed 529520759 Problem GERD without esophagitis (K21.9) Active confirmed 389492636 Problem BMI 34.0-34.9,adult (Z68.34) Active confirmed 354930886 Problem Other chronic pain (G89.29) Active confirmed 12792324 Problem Status cardiac pacemaker (Z95.0) Active confirmed 383557897 Problem Atherosclerosis of deering coronary artery of deering heart without angina pectoris (I25.10) Active confirmed 8967060457594 Problem Memory loss (R41.3) Active confirmed 48 388922 Problem Primary osteoarthritis involving multiple joints (M15.0) Active confirmed 088029260 Problem Urinary incontinence, urge (N39.41) Active confirmed 40012671 Problem Sacroiliitis (M46.1) Active confirmed 5 6374223 Problem BMI 35.0-35.9,adult (Z68.35) Active confirmed 886585860 Problem Gastroesophageal reflux disease with esophagitis without hemorrhage (K21.00) Active confirmed 248200404 VITAL SIGNS Heart Rate 74 /min 03/30/2023 Temperature 97.8 degrees Fahrenheit 03/30/2023 Blood pressure diastolic 80 mm Hg 03/30/2023 Height 5 ft 3 in in 03/30/2023 Blood pressure systolic 126 mm Hg 03/30/2023 Weight 211 lbs 03/30/2023 BMI 37.37 kg/m2 03/30/2023 Encounters Encounter Location Date Provider Diagnosis [address] [address] 03/02/2023 Jose Mendoza [address] [address] 06/11/2022 Jose Mendoza Hyperlipemia, idiopa thic familial E78.5 ; Primary osteoarthritis involving multiple joints M15.0 ; Vitamin D deficiency E55.9 ; Atherosclerosis of deering coronary artery of deering heart without angina pectoris I25.10 ; BMI 35.0-35.9,adult Z68.35 and Routine medical exam Z00.[address] [address] 09/10/2022 Jose Mendoza HTN (hypertension) I 10 ; Primary osteoarthritis involving multiple joints M15.0 and Chronic pain syndrome G89.[address] [address] 12/08/2022 Jose Mendoza Immunization(s) administered Z23 [facility] [address] [address] 12/17/2022 Jose Mendoza Primary osteoarthrit is involving multiple joints M15.0 ; Chronic pain syndrome G89.4 ; HTN (hypertension) I10 and Atherosclerosis of deering coronary artery of deering heart without angina pectoris I25.10 [facility] [address] [address] 03/04/2023 Jose Mendoza Memory loss R41.3 ; Hyperlipemia, idiopathic familial E78.5 ; Primary osteoarthritis involving multiple joints M15.0 ; Atherosclerosis of deering coronary artery of deering heart without angina pectoris I25.10 ; Gastroesophageal reflux disease with esophagitis without hemorrhage K21.00 and Routine medical exam Z00.00 [facility] [address] [address] 03/30/2023 Jose Mendoza Mild cognitive impairment G31.84 and Chronic pain syndrome G89.4 [facility] [address] [address] 04/30/2022 Jose Mendoza Primary osteoarthrit is involving multiple joints M15.0 [facility] [address] [address] 05/12/2022 Jose Mendoza Gastroesophageal ref lux disease with esophagitis without hemorrhage K21.00 [facility] [address] [address] 06/01/2022 Jose Mendoza Primary osteoarthrit is involving multiple joints M15.0 [facility] [address] [address] 06/11/2022 Josekarmen Mendoza [facility] [address] [address] 07/01/2022 Jose Besbetsy Primary osteoarthrit is involving multiple joints M15.0 [facility] [address] [address] 07/23/2022 Jose Besbetsy [facility] [address] [address] 07/27/2022 Jose Tieshason [facility] [address] [address] 07/31/2022 Jose Mendoza Primary osteoarthrit is involving multiple joints M15.0 [facility] [address] [place] [address] 08/28/2022 Jose Mendoza Primary osteoarthrit is involving multiple joints M15.0 [facility] [address] [place] [address] 09/04/2022 Jose Mendoza [facility] [address] [place] [address] 09/16/2022 Jose Mendoza Breast cancer screen ing by mammogram Z12.31 [facility] [address] [place] [address] 09/29/2022 Jose Mendoza Primary osteoarthrit is involving multiple joints M15.0 [facility] [address] [place] [address] 10/29/2022 Jose Mendoza Primary osteoarthrit is involving multiple joints M15.0 [facility] [address] [place] [address] 11/26/2022 Jose Mendoza Primary osteoarthrit is involving multiple joints M15.0 [facility] [address] [place] [address] 12/17/2022 Josekarmen Mendoza [facility] [address] [place] [address] 12/25/2022 Josekarmen Mendoza Primary osteoarthrit is involving multiple joints M15.0 [facility] [address] [place] [address] 12/31/2022 Jose Besson [facility] [address] [place] [address] 01/25/2023 Jose Besson Primary osteoarthrit is involving multiple joints M15.0 [facility] [address] [address] 02/24/2023 Jose Besson Primary osteoarthrit is involving multiple joints M15.0 [facility] [address] [place] [address] 03/25/2023 Jose Besson Primary osteoarthrit is involving multiple joints M15.0 ASSESSMENTS Encounter Date Diagnosis Assessment Notes Treatment Notes Treatment Clinical Notes 12/17/2022 Primary osteoarthrit is involving multiple joints (ICD-10 - M15.0) Dexamethasone 1 mL administered by me in the left deltoid. Continue other medications. Doing well with her pain medication as noted below 12/25/2022 Primary osteoarthrit is involving multiple joints (ICD-10 - M15.0) 01/25/2023 Primary osteoarthrit is involving multiple joints (ICD-10 - M15.0) 02/24/2023 Primary osteoarthrit is involving multiple joints (ICD-10 - M15.0) 03/25/2023 Primary osteoarthrit is involving multiple joints (ICD-10 - M15.0) 03/30/2023 Chronic pain syndrom e (ICD-10 - G89.4) Patient has been on opiates for over 20 years and was prescribed these by her previous doctor many years ago. She is dependent on these. She goes to see pain clinic who does joint injections which have been helpful. I brought up the subject of cutting her pain medicine down in the past and each time she becomes somewhat tearful in discussing about how all my bones hurt. I certainly think she has legitimate pain but I also think she has a little bit of psychological dependence on the pain medicine given the stress in her life. I discussed with her that I will not cut her pain medications down involuntarily but I would like her to try to go to 3 times a day instead of 4 times a day on her own for a couple of months. I discussed that her 's done this recently and he is much more alert and functional. She acknowledges that this could possibly happen. I will see her back for her regular visit and reevaluate this. 03/30/2023 Mild cognitive impairment (ICD-10 - G31.84) MoCA test done, significantly impaired results at a score of 17. Most of her deficiencies are not in the executive/visuospa tial area but are in the memory/retention of word area. I reviewed extensively recent labs with her. 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 Her other labs show mild anemia of chronic disease and slight lowering of her GFR but I believe the main cause of her impairment is her overall and activity levels and her opiate use. I did recommend instituting vitamin therapy with vitamin B1, B12 and vitamin D. She will do this and is agreeable. In regards to future planning, she currently does not drive as her does this, she has good relationship with her family and she will investigate her youngest daughter becoming her healthcare surrogate. I have recommended increasing physical activity outside if possible, and we gave her an extensive handout about diet and sleep and stress reduction that might help with her impairment. Please see notes below re: opiate use. 06/11/2022 Hyperlipemia, idiopathic familial (ICD-10 - E78.5) Labs ordered and reviewed as noted. No changes in plan 06/11/2022 Primary osteoarthrit is involving multiple joints (ICD-10 - M15.0) On pain management as noted given high risk factors with NSAIDs. Stable. Normal refill patterns. Has been appropriate in regards to monitoring issues. 07/01/2022 Primary osteoarthrit is involving multiple joints (ICD-10 - M15.0) 08/28/2022 Primary osteoarthrit is involving multiple joints (ICD-10 - M15.0) 09/10/2022 HTN (hypertension) (ICD-10 - I10) Blood pressure under good control. No changes in plan, up-to-date with labs to monitor her chronic medical problems. I will follow her up in 3 months to reassess pain control and for flu shot and wellness visit and 09/10/2022 Primary osteoarthrit is involving multiple joints (ICD-10 - M15.0) 10/29/2022 Primary osteoarthrit is involving multiple joints (ICD-10 - M15.0) 11/26/2022 Primary osteoarthrit is involving multiple joints (ICD-10 - M15.0) 12/17/2022 Chronic pain syndrom e (ICD-10 - G89.4) Patient has been compliant with our office and [place] regulations r.e. meds. No concerns on my part about diversion or misuse. Labs and Yuri reports reviewed and are appropriate. 07/31/2022 Primary osteoarthrit is involving multiple joints (ICD-10 - M15.0) 05/12/2022 Gastroesophageal reflux disease with esophagitis without hemorrhage (ICD-10 - K21.00) 04/30/2022 Primary osteoarthrit is involving multiple joints (ICD-10 - M15.0) 12/08/2022 Immunization(s) administered (ICD-10 - Z23) 03/04/2023 Hyperlipemia, idiopathic familial (ICD-10 - E78.5) Check lipids. I will review these personally. 03/04/2023 Memory loss (ICD-10 - R41.3) Memory screening concerning. Patient self-reported memory loss concerning. Labs will be drawn for amyloid ratio and other testing. All reviewed personally and schedule patient back for a full memory evaluation. 09/29/2022 Primary osteoarthrit is involving multiple joints (ICD-10 - M15.0) 09/16/2022 Breast cancer screening by mammogram (ICD-10 - Z12.31) 06/01/2022 Primary osteoarthrit is involving multiple joints (ICD-10 - M15.0) 03/04/2023 Primary osteoarthrit is involving multiple joints (ICD-10 - M15.0) Remains on hydrocodone 7.5 every 6. Obviously reducing this would be ideal but we will reevaluate after labs are back and see how pain control is after her orthopedic/pain management evaluation Due for urine drug testing. They will be scheduled for precision branded drug screening tomorrow. 12/17/2022 HTN (hypertension) (ICD-10 - I10) Stable. Blood pressure under excellent control. Labs normal. 09/10/2022 Chronic pain syndrom e (ICD-10 - G89.4) Patient has been compliant with our office and [place] regulations r.e. meds. No concerns on my part about diversion or misuse. Labs and Yuri reports reviewed and are appropriate. 06/11/2022 Vitamin D deficiency (ICD-10 - E55.9) 06/11/2022 Atherosclerosis of deering coronary artery of deering heart without angina pectoris (ICD-10 - I25.10) No evidence of recurrent cardiac disease symptoms. On appropriate lipid management 12/17/2022 Atherosclerosis of deering coronary artery of deering heart without angina pectoris (ICD-10 - I25.10) No evidence of recurrence of disease. Continue current goal-directed therapy. Follow-up 3 months for labs. Up-to-date with vaccinations 03/04/2023 Atherosclerosis of deering coronary artery of deering heart without angina pectoris (ICD-10 - I25.10) On appropriate medications, check lipids 03/04/2023 Gastroesophageal reflux disease with esophagitis without hemorrhage (ICD-10 - K21.00) 06/11/2022 BMI 35.0-35.9,adult (ICD-10 - Z68.35) Elevated BMI as a health risk. Poor prognosis for improvement 06/11/2022 Routine medical exam (ICD-10 - Z00.00) Lifelong non-smoker. No recent falls. Good functional status. Up-to-date with vaccinations. Out of range for mammogram and DEXA and colon screening. 03/04/2023 Routine medical exam (ICD-10 - Z00.00) No recent falls. Depression screening negative. Aged out of cancer, mammogram screening. DEXA scan up-to-date. Memory testing noted. Patient's is her surrogate decision making person. She has no living well, not interested at this time. Today with vaccinations. PLAN OF TREATMENT Pending Test Test Name Order Date Ultrasound : Abdomen 08/17/2012 Physical Therapy 04/08/2021 Physical Therapy 11/10/2013 Physical Therapy 08/01/2019 Mammogram : Bilateral 09/16/2022 Mammogram : Bilateral 03/07/2021 Occupational Therapy : Eval & Treatment 08/01/2019 H-VIT D, 1,25-HYDROXY 10/30/2016 H-VIT D, 25-HYDROXY 04/02/2016 C-CMP 02/27/2020 C-LIPID PANEL 02/27/2020 C-URINE CULTURE 11/23/2017 C-URINE CULTURE 11/11/2012 M-Vitamin D 25 Hydroxy 03/05/2022 M-Vitamin D 25 Hydroxy 03/04/2021 Next Appt Details Provider Name:Jose Montiel Tieshabetsy, 06/03/2023 11:00:00 AM, [address] [place] [address], [phone], Insurance Providers Payer Name Payer Address Payer Phone Subscriber Number Group Number Insured Name Patient Relationship to Insured Coverage Start Date Coverage End Date [employer] [address] [address] [place] [address] [id number] Gina Stone Self - patient is the [...]
[2023-04-06 09:20] VITALS: BP 160/80; PULSE 84; RESP 18; TEMP 36.2; O2SAT 99; BMI 36.3
[2023-04-06] MEDS: BUPIVACAINE 0.25% 10ML INJ 25 MG IJ (09:45)
[2023-04-06] MEDS: methylPREDNISolone ACETATE 80MG/ML VIAL 80 MG (09:45)
[2023-04-06] MEDS: LIDOCAINE 1% 5ML PF VIAL 5 ML (09:45)
--- NOTE | 2023-04-06 09:53 | P.PCN_ITS ---
Procedure Date: 04/06/23 Time: 09:50 Anesthesiologist:: Cody Ford CRNA Complications:: None Pre-procedure Diagnosis:: DJD left shoulder. Chronic left shoulder pain. Post-procedure Diagnosis:: Same. Indications for Procedure:: Patient is a very pleasant 77-year-old female who comes our clinic today for a left intra-articular shoulder injection. Patient is responded very well to the left intra-articular shoulder injection in the past. Patient has 5/5 strength in the left arm. However, patient has limited range of motion due to left shoulder pain. She rates her pain today 6/10 Procedure Details:: Informed consent was obtained risk and benefits of the procedure were explained to the patient. Patient was taken to the procedure room. The left shoulder was prepped using ChloraPrep. A 25-gauge needle was used first anteriorly, la terally, and then posteriorly to inject 10 mL bupivacaine 0.25% and Depo-Medrol 40 mg. Patient tolerated procedure well with no complications. Plan and Disposition:: Patient tolerated procedure without difficulty. She was discharged without incident.
[2023-04-06 09:55] VITALS: BP 148/61; PULSE 76; RESP 18; O2SAT 99
== END 2023-04-06 09:55 | disposition home or self-care (01) ==
PROVIDERS: PCP Internal Medicine Adolescent Medicine; Visit Provider Nurse Anesthetist, Certified Registered
DX: M19.012 Primary osteoarthritis, left shoulder (principal); M25.552 Pain in left hip; G89.29 Other chronic pain
CPT/HCPCS: 20610; J1040

== ENCOUNTER 2023-04-16 10:09 | Outpatient (CLI) | payer MEDICARE, SELFPAY ==
--- NOTE | 2023-04-16 10:14 | MM_ITS ---
PROCEDURE INFORMATION: Exam: MG Bilateral Screening 3D Mammography Exam date and time: 04/16/2023 10:09 AM Age: 78 years old Clinical indication: Screening mammogram TECHNIQUE: Imaging protocol: Bilateral Screening tomosynthesis and 2D mammography including computer-aided detection (CAD) when performed. COMPARISON: 1. MG MM DIG SCREENING MAMM BI W/CAD 06/17/2021 9:21 AM 2. MG MM DIG SCREENING MAMM BI W/CAD 03/05/2020 9:50 AM 3. MG SCBI MM Dig screening mamm BI w/CAD 06/16/2018 9:18 AM 4. MG SCBI MM Dig screening mamm BI w/CAD 05/11/2017 9:56 AM FINDINGS: MAMMOGRAPHY: Breast composition: There are scattered areas of fibroglandular density. Mass: None. Architectural distortion: No new or suspicious architectural distortion. Calcifications: Stable benign-appearing calcifications are present. No new or suspicious cluster of microcalcifications have developed. Asymmetric density: No new or suspicious asymmetric density is present Skin thickening: None. Axillary adenopathy: None. Other findings: Left pacemaker obscures the upper posterior aspect of left MLO. IMPRESSION: No mammographic evidence of malignancy. Recommend annual screening mammography unless otherwise clinically indicated. ASSESSMENT: BI-RADS category 2: Benign
== END 2023-04-16 23:59 ==
LOC: RAD 10:10
PROVIDERS: PCP Internal Medicine Adolescent Medicine; Visit Provider Internal Medicine Adolescent Medicine
DX: Z12.31 Encounter for screening mammogram for malignant neoplasm of breast (principal)
CPT/HCPCS: 77063; 77067

== ENCOUNTER 2023-04-21 11:07 | Outpatient (POV) | payer MEDICARE, SELFPAY ==
--- NOTE | 2023-04-21 12:02 | A.OFFVIS_ITS ---
[facility] Pain Management SOAP Note Subjective:: Patient is a pleasant 78-year-old female who presents today for follow-up of left intra-articular shoulder injection on 04/06/2023. We are currently treating the patient for degenerative joint disease left shoulder. Today she rates her pain a 3 out of 10. Patient states she has had at least 50% improvement following this injection and feels like it still continuing to provide additional relief. Patient states she has been able to increase her activity with decreased pain symptoms and feels overall more functional. Patient does state that she did have to go for mammogram and the positioning did aggravate the shoulder. Patient is prescribed [place] 7.5 mg 4 times [address] day from Dr. Mendoza' s office and pregabalin 75 mg twice daily from our office. Patient denies any side effects from this medication and is requesting refills of her Lyrica. Her Yuri has been reviewed and is appropriate. Review of Systems: General: No recent weight changes, no fever, no sleep disturbances Respiratory: No cough, no shortness of air, no recurring pulmonary infections Cardiovascular/peripheral vascular: No chest pain, no palpitations, no edema, no shortness of breath Gastrointestinal: No new onset incontinence, normal bowel movements reported Genitourinary: No new onset incontinence Musculoskeletal: Left shoulder pain Psychiatric: [Normal mood/affect] Neurological: [Denies weakness in extremities], [denies balance issues] Objective:: Physical Exam: General: Alert and oriented x3, no acute distress, pleasant and cooperative Lungs: Respirations even and unlabored, symmetrical chest expansion Eyes: PERRL Musculoskeletal: Flexion and extension of left shoulder somewhat guarded secondary to pain, [antalgic gait noted] Neurological: Speech clear, no gross sensory deficit Assessment:: Left shoulder degenerative joint disease, left shoulder tendinitis Plan:: Patient has had significant improvement following her shoulder injection and does not require any additional injection therapy at this time. Patient will return to clinic in 2 months for reevaluation of symptoms and plan of care. I will send him a 2-month supply of her pregabalin 75 mg twice a day. Patient has been instructed to contact the clinic with any concerns before the next appointment. Dr. Sorensen has reviewed this note and agrees with this plan of care. This note was dictated using voice recognition software and make contain errors or omissions. [facility] Disclaimer: The information contained in this section may have been updated after the patient was seen, as this information can be updated by other users. Medical History History of pacemaker Hyperlipidemia Hypertension Surgical History History of hip surgery History of hysterectomy History of shoulder surgery Family History Other No significant family history Social History Smoking Status: Never smoker alcohol intake: never substance use type: denies use current occupational status: retired Travel in the last 8 weeks: None household members: spouse housing: house current occupational exposures/hazards: No caffeine: Yes
[2023-04-21 12:39] VITALS: BP 118/76; PULSE 66; RESP 18; O2SAT 98; BMI 36.3
== END 2023-04-21 23:59 | disposition home or self-care (01) ==
PROVIDERS: PCP Internal Medicine Adolescent Medicine; Visit Provider Nurse Practitioner Family
DX: M19.012 Primary osteoarthritis, left shoulder (principal); M77.8 Other enthesopathies, not elsewhere classified
CPT/HCPCS: 99212; G0463

== ENCOUNTER 2023-05-25 10:02 | Outpatient (CLI) | payer MEDICARE, SELFPAY ==
--- NOTE | 2023-05-25 10:09 | US_ITS ---
FINAL REPORT CLINICAL HISTORY: RT UPPER LIMB PAIN FINDINGS: Limited sonographic images of the right shoulder region were obtained. No mass or abnormal fluid collection is seen in the area of interest. No focal abnormality is identified. IMPRESSION: No focal abnormality identified at the area of interest. If indicated, the MRI would be more sensitive for evaluation of the potential soft tissue injury. Authenticated and ERN
== END 2023-05-25 23:59 ==
LOC: RAD 10:03
PROVIDERS: PCP Internal Medicine Adolescent Medicine; Visit Provider Internal Medicine Adolescent Medicine
DX: M79.601 Pain in right arm (principal)
CPT/HCPCS: 76882

== ENCOUNTER 2023-06-17 08:55 | Outpatient (POV) | payer MEDICARE, SELFPAY ==
[2023-06-17 09:03] VITALS: BP 126/41; PULSE 86; RESP 18; O2SAT 100; BMI 36.3
--- NOTE | 2023-06-17 09:59 | EXP.PAIN.SOA ---
[facility] Pain Management SOAP Note Subjective:: Patient is a pleasant 78-year-old female who presents today for 2-month follow-up and medication refill. Today she rates her pain a 10 out of 10. Patient denies any new injury or trauma however she states that her shoulders are bothering her quite a bit. She stated that in the past she did end up having right shoulder surgery to remove some spurs and that was about 20 years ago and not really had any problems up until recently. Patient states that the last week or 2 has been extremely painful with her right shoulder pain as well as her left. Patient does describe this as a constant aching, throbbing sensation with some numbness and limited range of motion. Patient does state the pain interferes with her ability to perform activities of daily living such as cooking and cleaning. Patient has gotten significant relief in the past from her left shoulder injections with at least 50% improvement lasting a couple of months. Patient is interested if we can repeat these injections. Patient is prescribed [place] from her PCP and pregabalin 75 mg twice a day from our office. She denies any side effects from this medication. Her Yuri has been reviewed and is appropriate. Review of Systems: General: No recent weight changes, no fever, no sleep disturbances Respiratory: No cough, no shortness of air, no recurring pulmonary infections Cardiovascular/peripheral vascular: No chest pain, no palpitations, no edema, no shortness of breath Gastrointestinal: No new onset incontinence, normal bowel movements reported Genitourinary: No new onset incontinence Musculoskeletal: Bilateral shoulder pain Psychiatric: [Normal mood/affect] Neurological: [Denies weakness in extremities], [denies balance issues] Objective:: Physical Exam: General: Alert and oriented x3, no acute distress, pleasant and cooperative Lungs: Respirations even and unlabored, symmetrical chest expansion Eyes: PERRL Musculoskeletal: Flexion and extension of bilateral shoulders somewhat guarded secondary to pain, [antalgic gait noted] Neurological: Speech clear, no gross sensory deficit Assessment:: Bilateral shoulder pain, degenerative joint disease of left shoulder and left shoulder tendinitis Plan:: Patient is experiencing worsening pain in her bilateral shoulders with limited range of motion. I have discussed with the patient that she may benefit from intra-articular injections bilaterally. Risk and benefits were discussed with patient and she would like to proceed forward with this plan of care. I will also refill the patient's pregabalin 75 mg twice a day and provide a 2-month supply of this medication. Patient will be scheduled for bilateral shoulder intra-articular injections. Patient has been instructed to contact the clinic with any concerns before the next appointment. Dr. Sorensen has reviewed this note and agrees with this plan of care. This note was dictated using voice recognition software and make contain errors or omissions. [facility] Disclaimer: The information contained in this section may have been updated after the patient was seen, as this information can be updated by other users. Medical History History of pacemaker Hypertension Hyperlipidemia Surgical History History of hip surgery History of shoulder surgery History of hysterectomy Family History Other No significant family history Social History Smoking Status: Never smoker alcohol intake: never substance use type: denies use current occupational status: other Travel in the last 8 weeks: None household members: spouse housing: house current occupational exposures/hazards: No caffeine: Yes
== END 2023-06-17 23:59 | disposition home or self-care (01) ==
PROVIDERS: PCP Internal Medicine Adolescent Medicine; Visit Provider Nurse Practitioner Family
DX: M19.012 Primary osteoarthritis, left shoulder (principal); M77.8 Other enthesopathies, not elsewhere classified; M25.511 Pain in right shoulder; M25.512 Pain in left shoulder
CPT/HCPCS: 99212; G0463

== ENCOUNTER 2023-06-22 11:18 | Day surgery (SDC) | payer MEDICARE, SELFPAY ==
--- OUTSIDE RECORDS SUMMARY | 2023-06-22 11:22 | XMS_ITS | Patient Health Record ---
Author Name Unknown Organization [facility] Address [address] [place] [address] Care Team Providers Care Closing Agent Name Role Phone Jose Mendoza Primary Care Provider GoldieGifty Unavailable [phone] ALLERGIES Allergen (clinical drug ingredient) Drug/Non Drug Allergy documented on EMR Reaction Allergy Type Onset Date Status oseltamivir Tamiflu dizziness Drug Allergy Activ e RESULTS Component Value Reference Range Notes Ultrasound : Soft Tissue Reviewed date:05/27/2023 10:54:02 AM Interpretation: Performing Lab: Notes/Report: [facility] AD DETECT(TM), BETA AM YLOID 42/40 RATIO, P ([id number]) Reviewed date:03/12/2023 11:58:53 AM Interpretation: Performing Lab:EZ, [facility],[address] [facility] HospitalCA[address] Angelica Armijo MD,PhD,LESLY Notes/Report: NON-FASTING ABETA 42 [...] analytical performance characteristics have been determined by [facility]. It has not been cleared or approved by FDA. This assay has been validated pursuant to the CLIA regulations and is used for clinical purposes. DEMENTIA PANEL, RESTOREU() ([id number]) Reviewed date:03/12/2023 11:58:53 AM Interpretation: Performing Lab:CB, [facility]-[place], [place] Dewayne Tamayo Notes/Report: FASTING: NO FASTING:NO NON-FASTING; NON-FASTING GLUCOSE 83 65-139 mg/dL Non-fasting reference interval [...] MPV 12.4 7.5-12.5 fL ABSOLUTE NEUTROPHILS 3499 1616-1146 cells/uL ABSOLUTE LYMPHOCYTES 2722 850-3900 cells/uL ABSOLUTE MONOCYTES 749 200-950 cells/uL ABSOLUTE EOSINOPHILS 187 15-500 cells/uL ABSOLUTE BASOPHILS 43 0-200 cells/uL NEUTROPHILS 48.6 LYMPHOCYTES 37.8 MONOCYTES 10.4 EOSINOPHILS 2.6 BASOPHILS 0.6 TSH 1.07 0.40-4.50 mIU/L VITAMIN B12 033 813-9176 pg/mL Please Note: Although the reference range [...] Questions (FAQs) or visit the following link [email or web address] Enhanced report to follow. LIPID PANEL, STANDARD (7600) Reviewed date:03/12/2023 11:58:53 AM Interpretation: Performing Lab:[facility] [facility], [id number] Dewayne Tamayo Notes/Report: NON-FASTING; NON-FASTING FASTING:NO FASTING: [...] factors. LDL-C is now calculated using the Alonzo-Penn calculation, which is a validated novel method providing better accuracy than the Friedewald equation in the estimation of LDL-C. Alonzo REYES et al. RITA. 2013;310(19): 0829-3511 (http://[employer]/faq/RCX972) CHOL/HDLC RATIO 2.9 <5.0 (calc) NON HDL CHOLESTEROL 118 <130 mg/dL (calc) For patients with diabetes plus 1 major ASCVD risk factor, treating to a non-HDL-C goal of <100 mg/dL (LDL-C of <70 mg/dL) is considered a therapeutic option. MEDICATIONS Medication SIG (Take, Route, Frequency, Duration) Notes Start Date End Date Status aspirin 81 mg 1 tab(s) orally once a day Active Peridex 0.12% 15 mL orally 2 times a day for 30 days 12/31/2022 Active Os-Brodie 500 1250 mg 1 tab(s) orally bid Active Nebivolol 10 mg 1 tab(s) orally once a day for 90 days Active Gemtesa 75 mg 1 tab(s) orally once a day for 90 days Active baclofen 10 mg 1 tab(s) orally 3 times a day for 90 days Active lisinopril 40 mg 1 tab(s) orally once a day for 90 days Active alendronate 70 mg 1 tab(s) orally once a week for 90 days Active pravastatin 80 mg 1 tab(s) orally once a day for 90 days Active multivitamin Multiple Vitamins 1 cap(s) orally once a day Active isosorbide mononitrate 60 mg 1 tab(s) or ally once a day (in the morning) for 90 days Active methocarbamol 500 mg 1-2 tab(s) orally 3 times a day for 5 day(s) 03/26/2020 Active pantoprazole 40 mg 1 tab(s) orally twic e a day for 90 days Active hydroCHLOROthiazide 25 mg 1/2 tab(s) ora lly once a day for 90 days Active furosemide 40 mg 1/2 tablet orally once a day for 90 days Active Xarelto 20 mg TAKE 1 TABLET ONE TIME DAILY IN THE EVENING for 90 days Active Acetaminophen-Hydrocodone Bitartrate 325 mg-7.5 mg 1 tab(s) orally every 6 hours for 30 days 06/20/2023 Active IMMUNIZATIONS Vaccine Route Administration Date Status Marquita Galindo (Tdap) Unknown 04/23/2015 Administered Covid Yokasta Unknown [...] Problem Chronic pain syndrome (G89.4) Active confirmed 259070559 Problem Urge incontinence (N39.41) Active confirmed 32446283 Problem HTN (hypertension) (I10) Active confirmed 13600502 Problem Vitamin D deficiency (E55.9) Active confirmed 91472042 Problem Osteoporosis (M81.0) Active confirmed 6 7113379 Problem Hyperlipemia, idiopathic familial (E78.5) Active confirmed 231417744 Problem Mild cognitive impairment (G31.84) Active confirmed 589164548 Problem GERD without esophagitis (K21.9) Active confirmed 135035658 Problem BMI 34.0-34.9,adult (Z68.34) Active confirmed 714482103 Problem Other chronic pain (G89.29) Active confirmed 71910398 Problem Status cardiac pacemaker (Z95.0) Active confirmed 283872490 Problem 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) Active confirmed 2584269471451 Problem Memory loss (R41.3) Active confirmed 48 034731 Problem Primary osteoarthritis involving multiple joints (M15.0) Active confirmed 365043219 Problem Urinary incontinence, urge (N39.41) Active confirmed 05869302 Problem Sacroiliitis (M46.1) Active confirmed 5 2584616 Problem BMI 35.0-35.9,adult (Z68.35) Active confirmed 212301168 Problem Gastroesophageal reflux disease with esophagitis without hemorrhage (K21.00) Active confirmed 372812114 VITAL SIGNS Heart Rate 68 /min 06/03/2023 Temperature 97.2 degrees Fahrenheit 06/03/2023 Blood pressure diastolic 72 mm Hg 06/03/2023 Height 5 ft 3 in in 06/03/2023 Blood pressure systolic 126 mm Hg 06/03/2023 Weight 217 lbs 06/03/2023 BMI 38.44 kg/m2 06/03/2023 Encounters Encounter Location Date Provider Diagnosis [address] [address] 03/02/2023 Jose Mendoza [place] [address] 09/10/2022 Jose Mendoza HTN (hypertension) I 10 ; Primary osteoarthritis involving multiple joints M15.0 and Chronic pain syndrome G89.[address] [address] 12/08/2022 Jose Mendoza Immunization(s) administered Z23 [address] [address] 12/17/2022 Jose Mendoza Primary osteoarthrit is involving multiple joints M15.0 ; Chronic pain syndrome G89.4 ; HTN (hypertension) I10 and Atherosclerosis of tribal coronary artery of tribal heart without angina pectoris I25.[address] [address] 03/04/2023 Jose Mendoza Memory loss R41.3 ; Hyperlipemia, idiopathic familial E78.5 ; Primary osteoarthritis involving multiple joints M15.0 ; Atherosclerosis of tribal coronary artery of tribal heart without angina pectoris I25.10 ; Gastroesophageal reflux disease with esophagitis without hemorrhage K21.00 and Routine medical exam Z00.[address] [address] 03/30/2023 Jose Mendoza Mild cognitive impairment G31.84 and Chronic pain syndrome G89.[address] [address] 05/12/2023 Gifty Amezcua Right arm pain M79.6 01 and Abnormality of soft tissue on examination M79.9 [facility] [address] [place] [address] 06/03/2023 Jose Tieshabetsy Acute pain of right shoulder M25.511 ; Primary osteoarthritis involving multiple joints M15.0 ; Atherosclerosis of tribal coronary artery of tribal heart without angina pectoris I25.10 and HTN (hypertension) I10 [facility] [address] [address] 07/01/2022 Jose Besbetsy Primary osteoarthrit is involving multiple joints M15.0 [facility] [address] [address] 07/23/2022 Jose Besson [facility] [address] [address] 07/27/2022 Jose Besson [facility] [address] [address] 07/31/2022 Jose Mendoza Primary osteoarthrit is involving multiple joints M15.0 [facility] [address] [place] [address] 08/28/2022 Jose Besbetsy Primary osteoarthrit is involving multiple joints M15.0 [facility] [address] [address] 09/04/2022 Jose Besson [facility] [address] [address] 09/16/2022 Jose Mendoza Breast cancer screen ing by mammogram Z12.31 [facility] [address] [address] 09/29/2022 Jose Besbetsy Primary osteoarthrit is involving multiple joints M15.0 [facility] [address] [address] 10/29/2022 Jose Besson Primary osteoarthrit is involving multiple joints M15.0 [facility] [address] [address] 11/26/2022 Jose Besson Primary osteoarthrit is involving multiple joints M15.0 [facility] [address] [address] 12/17/2022 Jose Besson [facility] [address] [address] 12/25/2022 Jose Mendoza Primary osteoarthrit is involving multiple joints M15.0 [facility] [address] [place] [address] 12/31/2022 Jose Mendoza [facility] [address] [place] [address] 01/25/2023 Jose Mendoza Primary osteoarthrit is involving multiple joints M15.0 [facility] [address] [place] [address] 02/24/2023 Jose Mendoza Primary osteoarthrit is involving multiple joints M15.0 [facility] [address] [place] [address] 03/25/2023 Jose Mendoza Primary osteoarthrit is involving multiple joints M15.0 [facility] [address] [place] [address] 04/23/2023 Jose Mendoza Primary osteoarthrit is involving multiple joints M15.0 [facility] [address] [place] [address] 05/18/2023 Gifty Amezcua Right upper limb tia n M79.601 [facility] [address] [place] [address] 05/24/2023 Jose Mendoza Primary osteoarthrit is involving multiple joints M15.0 ASSESSMENTS Encounter Date Diagnosis Assessment Notes Treatment Notes Treatment Clinical Notes 09/10/2022 HTN (hypertension) (ICD-10 - I10) Blood pressure under good control. No changes in plan, up-to-date with labs to monitor her chronic medical problems. I will follow her up in 3 months to reassess pain control and for flu shot and wellness visit and 09/10/2022 Primary osteoarthrit is involving multiple joints (ICD-10 - M15.0) 09/29/2022 Primary osteoarthrit is involving multiple joints (ICD-10 - M15.0) 10/29/2022 Primary osteoarthrit is involving multiple joints (ICD-10 - M15.0) 11/26/2022 Primary osteoarthrit is involving multiple joints (ICD-10 - M15.0) 12/08/2022 Immunization(s) administered (ICD-10 - Z23) 12/25/2022 Primary osteoarthrit is involving multiple joints [...] Please see notes below re: opiate use. 04/23/2023 Primary osteoarthrit is involving multiple joints (ICD-10 - M15.0) 05/12/2023 Right arm pain (ICD- 10 - M79.601) Rec US and consider referral to orthopedics pending results...rec use of topical analgesics such as Biofreeze for pain 05/12/2023 Abnormality of soft tissue on examination (ICD-10 - M79.9) 05/24/2023 Primary osteoarthrit is involving multiple joints (ICD-10 - M15.0) 07/01/2022 Primary osteoarthrit is involving multiple joints (ICD-10 - M15.0) 07/31/2022 Primary osteoarthrit is involving multiple joints (ICD-10 - M15.0) 08/28/2022 Primary osteoarthrit is involving multiple joints (ICD-10 - M15.0) 06/03/2023 Primary osteoarthrit is involving multiple joints (ICD-10 - M15.0) Patient has been compliant with refill issues, not escalating her pain medication appears to have no cognitive or GI side effects. Once again would very much like to reduce this dose but I do not know that this is possible at this point given her symptom issues 06/03/2023 Acute pain of right shoulder (ICD-10 - M25.511) Would benefit from steroid injection/orthoped ic evaluation. This will be set up. No change in pain medication. 05/18/2023 Right upper limb tia n (ICD-10 - M79.601) 03/04/2023 Hyperlipemia, idiopathic familial (ICD-10 - E78.5) Check lipids. I will review these personally. 03/04/2023 Memory loss (ICD-10 - R41.3) Memory screening concerning. Patient self-reported memory loss concerning. Labs will be drawn for amyloid ratio and other testing. All reviewed personally and schedule patient back for a full memory evaluation. 02/24/2023 Primary osteoarthrit is involving multiple joints (ICD-10 - M15.0) 01/25/2023 Primary osteoarthrit is involving multiple joints (ICD-10 - M15.0) 12/17/2022 Chronic pain syndrom e (ICD-10 - G89.4) Patient has been compliant with our office and [place] regulations r.e. meds. No concerns on my part about diversion or misuse. Labs and Yuri reports reviewed and are appropriate. 12/17/2022 Primary osteoarthrit is involving multiple joints (ICD-10 - M15.0) Dexamethasone 1 mL administered by me in the left deltoid. Continue other medications. Doing well with her pain medication as noted below 09/16/2022 Breast cancer screening by mammogram (ICD-10 - Z12.31) 12/17/2022 HTN (hypertension) (ICD-10 - I10) Stable. Blood pressure under excellent control. Labs normal. 03/04/2023 Primary osteoarthrit is involving multiple joints (ICD-10 - M15.0) Remains on hydrocodone 7.5 every 6. Obviously reducing this would be ideal but we will reevaluate after labs are back and see how pain control is after her orthopedic/pain management evaluation Due for urine drug testing. They will be scheduled for precision branded drug screening tomorrow. 06/03/2023 Atherosclerosis of tribal coronary artery of tribal heart without angina pectoris (ICD-10 - I25.10) Not a candidate for NSAIDs given her CAD. No changes in plan from this perspective. Appears euvolemic 09/10/2022 Chronic pain syndrom e (ICD-10 - G89.4) Patient has been compliant with our office and [place] regulations r.e. meds. No concerns on my part about diversion or misuse. Labs and Yuri reports reviewed and are appropriate. 06/03/2023 HTN (hypertension) (ICD-10 - I10) Good blood Pressure control, follow-up 3 months for reevaluation, pain reevaluation and complete lab levels 03/04/2023 Atherosclerosis of tribal coronary artery of tribal heart without angina pectoris (ICD-10 - I25.10) On appropriate medications, check lipids 12/17/2022 Atherosclerosis of tribal coronary artery of tribal heart without angina pectoris (ICD-10 - I25.10) No evidence of recurrence of disease. Continue current goal-directed therapy. Follow-up 3 months for labs. Up-to-date with vaccinations 03/04/2023 Gastroesophageal reflux disease with esophagitis without hemorrhage (ICD-10 - K21.00) 03/04/2023 Routine medical exam (ICD-10 - Z00.00) No recent falls. Depression screening negative. Aged out of cancer, mammogram screening. DEXA scan up-to-date. Memory testing noted. Patient's is her surrogate decision making person. She has no living well, not interested at this time. Today with vaccinations. PLAN OF TREATMENT Pending Test Test Name Order Date Ultrasound : Abdomen 08/17/2012 Physical Therapy 08/01/2019 Physical Therapy 04/08/2021 Physical Therapy 11/10/2013 Mammogram : Bilateral 09/16/2022 Mammogram : Bilateral 03/07/2021 Occupational Therapy : Eval & Treatment 08/01/2019 H-VIT D, 1,25-HYDROXY 10/30/2016 H-VIT D, 25-HYDROXY 04/02/2016 C-CMP 02/27/2020 C-LIPID PANEL 02/27/2020 C-URINE CULTURE 11/11/2012 C-URINE CULTURE 11/23/2017 M-Vitamin D 25 Hydroxy 03/04/2021 M-Vitamin D 25 Hydroxy 03/05/2022 Next Appt Details Provider Name:Jose Mendoza, 09/02/2023 10:45:00 AM, [address] [place] [address], [id number], Insurance Providers Payer Name Payer Address Payer Phone Subscriber Number Group Number Insured Name Patient Relationship to Insured Coverage Start Date Coverage End Date [employer] [address] [address] [place] [address] [id number] Gina Stone Self - patient is the [...] GERD normal mammogram may 2018 - repeated and normal 02/2020 and normal 06/13 and normal 04/17 Last eye exam 11/2015 Surgical History Surgery Date(Month/Year) tubal hysterectomy francis in right femur from fx femur and sli pped and fell cardiac stents x4 pacemaker 10/2017 back 08/2020 Hospitalization History Reason Date(Month/Year) HTN 2013
[2023-06-22 11:30] VITALS: BP 121/59; PULSE 65; RESP 16; TEMP 36.6; O2SAT 97; BMI 36.3
[2023-06-22] MEDS: LIDOCAINE 1% 5ML PF VIAL 5 ML (11:33)
[2023-06-22] MEDS: BUPIVACAINE 0.25% 10ML INJ 25 MG IJ (11:33)
[2023-06-22] MEDS: methylPREDNISolone ACETATE 80MG/ML VIAL 80 MG (11:34)
[2023-06-22 11:42] VITALS: BP 135/58; PULSE 62; RESP 18; O2SAT 97
--- NOTE | 2023-06-22 11:47 | P.PCN_ITS ---
Procedure Date: 06/22/23 Time: 11:30 Anesthesiologist:: Cody Ford CRNA Complications:: None Pre-procedure Diagnosis:: DJD bilateral shoulders. Chronic bilateral shoulder pain. Post-procedure Diagnosis:: Same. Indications for Procedure:: Patient is a very pleasant 78-year-old female comes our clinic today for bilateral intra-articular shoulder injections of cortisone. Patient has 5/5 strength in her bilateral arms. However, patient reports limited range of motion due to bilateral shoulder pain. She rates her pain 9/10. Procedure Details:: Procedure Details: Bilateral shoulder intra-articular injection Informed consent was obtained risk and benefits of the procedure were explained to the patient. Patient was taken to the procedure room. The right shoulder was prepped using ChloraPrep. A 25-gauge needle was used first anteriorly, laterally, and then posteriorly to inject 10 mL bupivacaine 0.25% and Depo- Medrol 40 mg. Same procedure was carried out in the left shoulder. Patient tolerated procedure well with no complications. Plan and Disposition:: Patient was discharged without incident.
== END 2023-06-22 11:42 | disposition home or self-care (01) ==
PROVIDERS: PCP Internal Medicine Adolescent Medicine; Visit Provider Nurse Anesthetist, Certified Registered
DX: M19.011 Primary osteoarthritis, right shoulder (principal); M19.012 Primary osteoarthritis, left shoulder; M25.511 Pain in right shoulder; M25.512 Pain in left shoulder; G89.29 Other chronic pain
CPT/HCPCS: 20610; J1010

== ENCOUNTER 2023-07-05 11:20 | Outpatient (POV) | payer MEDICARE, SELFPAY ==
--- OUTSIDE RECORDS SUMMARY | 2023-07-05 11:24 | XMS_ITS | Patient Health Record ---
Author Name Unknown Organization [facility] Address [address] [place] [address] Care Team Providers Care Communications Assistant Name Role Phone Jose Mendoza Primary Care Provider [phone] GoldieGifty Unavailable [phone] ALLERGIES Allergen (clinical drug ingredient) Drug/Non Drug Allergy documented on EMR Reaction Allergy Type Onset Date Status oseltamivir Tamiflu dizziness Drug Allergy Activ e RESULTS Component Value Reference Range Notes Ultrasound : Soft Tissue Reviewed date:05/27/2023 10:54:02 AM Interpretation: Performing Lab: Notes/Report: [facility] AD DETECT(TM), BETA AM YLOID 42/40 RATIO, P ([id number]) Reviewed date:03/12/2023 11:58:53 AM Interpretation: Performing Lab:EZ, [facility],[address] [facility] Angelica Armijo MD,PhD,LESLY Notes/Report: NON-FASTING ABETA [...] used for clinical purposes. DEMENTIA PANEL, RESTOREU() ([id number]) Reviewed date:03/12/2023 11:58:53 AM Interpretation: Performing Lab:CB, [facility]-[place], [place] RobertsJhrqWB[address] Dewayne Tamayo Notes/Report: NON-FASTING; NON-FASTING FASTING:NO FASTING: [...] MPV 12.4 7.5-12.5 fL ABSOLUTE NEUTROPHILS 3499 5094-1311 cells/uL ABSOLUTE LYMPHOCYTES 2722 850-3900 cells/uL ABSOLUTE MONOCYTES 749 200-950 cells/uL ABSOLUTE EOSINOPHILS 187 15-500 cells/uL ABSOLUTE BASOPHILS 43 0-200 cells/uL NEUTROPHILS 48.6 LYMPHOCYTES 37.8 MONOCYTES 10.4 EOSINOPHILS 2.6 BASOPHILS 0.6 TSH 1.07 0.40-4.50 mIU/L VITAMIN B12 310 375-7085 pg/mL Please Note: Although the reference range [...] Questions (FAQs) or visit the following link [email or web address] Enhanced report to follow. LIPID PANEL, STANDARD ([id number]) Reviewed date:03/12/2023 11:58:53 AM Interpretation: Performing Lab:[facility] [id number] [facility], [place] [id number] Dewayne Tamayo Notes/Report: NON-FASTING; NON-FASTING FASTING:NO FASTING: [...] LDL-C. Alonzo REYES et al. RITA. 2013;310(19): 9219-5382 ([email or web address]) CHOL/HDLC RATIO 2.9 <5.0 (calc) NON HDL CHOLESTEROL 118 <130 mg/dL (calc) For patients with diabetes plus 1 major ASCVD risk factor, treating to a non-HDL-C goal of <100 mg/dL (LDL-C of <70 mg/dL) is considered a therapeutic option. MEDICATIONS Medication SIG (Take, Route, Frequency, Duration) Notes Start Date End Date Status furosemide 40 mg 1/2 tablet orally once a day for 90 days Active hydroCHLOROthiazide 25 mg 1/2 tab(s) ora lly once a day for 90 days Active alendronate 70 mg 1 tab(s) orally once a week for 90 days Active Acetaminophen-Hydrocodone Bitartrate 325 mg-7.5 mg 1 tab(s) orally every 6 hours for 30 days 06/22/2023 Active baclofen 10 mg 1 tab(s) orally 3 times a day for 90 days Active Xarelto 20 mg TAKE 1 TABLET ONE TIME DAILY IN THE EVENING for 90 days Active Gemtesa 75 mg 1 tab(s) orally once a day for 90 days Active Peridex 0.12% 15 mL orally 2 times a day for 30 days 12/31/2022 Active fluticasone nasal 50 mcg/inh 1 spray(s) in each nostril 2 times a day for 30 days 06/23/2023 Active benzonatate 200 mg 1 cap(s) orally 3 times a day as needed for cough for 5 days 06/23/2023 Active methocarbamol 500 mg 1-2 tab(s) orally 3 times a day for 5 day(s) 03/26/2020 Active pravastatin 80 mg 1 tab(s) orally once a day for 90 days Active multivitamin Multiple Vitamins 1 cap(s) orally once a day Active lisinopril 40 mg 1 tab(s) orally once a day for 90 days Active Os-Brodie 500 1250 mg 1 tab(s) orally bid Active pantoprazole 40 mg 1 tab(s) orally twic e a day for 90 days Active Nebivolol 10 mg TAKE 1 TABLET EVERY DAY for 90 Active aspirin 81 mg 1 tab(s) orally once a day Active isosorbide mononitrate 60 mg 1 tab(s) or ally once a day (in the morning) for 90 days Active amoxicillin 875 mg 1 tab(s) orally ever y 12 hours for 10 days 06/23/2023 Active cefdinir 300 mg 1 cap(s) orally ever y 12 hours for 10 days 06/30/2023 Active IMMUNIZATIONS Vaccine Route Administration Date Status Comme nts Prevnar PCV-20 (Pneumococcal conjugate 20) IM Intramuscular 08/26/2021 Administered Prevnar PCV-13 (Pneumococcal conjugate 13) IM Intramuscular 01/22/2015 Administered Pneumovax-23 (pneumococccal vaccine polyvalent)2 years or older IM Intramuscular 11/01/2013 Administered Influenza (Fluzone)--Medicare only IM Intramuscular 12/03/2014 Administered Influenza (Fluzone)--Medicare only IM Intramuscular 11/15/2015 Administered Fluzone High Dose IM Intramuscular 11/26/2016 Administered Fluzone High Dose IM Intramuscular 11/23/2017 Administered Fluzone High Dose IM Intramuscular 11/29/2018 Administered Fluzone High Dose IM Intramuscular 11/28/2019 Administered Fluzone High Dose IM Intramuscular 12/10/2020 Administered Fluzone High Dose IM Intramuscular 11/25/2021 Administered Fluzone High Dose IM Intramuscular 12/08/2022 Administered Fluvirin--Influenza vaccine 3+ year IM Intramuscular 11/23/2012 Administered Fluvirin--Influenza vaccine 3+ year IM Intramuscular 11/24/2013 Administered Covid Yokasta Unknown 05/02/2020 Administered Covid Yokasta Unknown 12/26/2020 Administered Adacel (Tdap) Unknown 04/23/2015 Administered SOCIAL HISTORY Sex Assigned At : Social History Observation Description Sex Assigned At Unknown PROBLEMS Problem Type ICD Code Onset Dates Problem Status W/U Status Risk SNOMED Code Notes Problem Chronic pain syndrome (G89.4) Active confirmed 745319397 Problem Urge incontinence (N39.41) Active confirmed 70528393 Problem HTN (hypertension) (I10) Active confirmed 91339053 Problem Vitamin D deficiency (E55.9) Active confirmed 25526008 Problem Osteoporosis (M81.0) Active confirmed 6 6945275 Problem Hyperlipemia, idiopathic familial (E78.5) Active confirmed 308154687 Problem Mild cognitive impairment (G31.84) Active confirmed 634676169 Problem GERD without esophagitis (K21.9) Active confirmed 825432365 Problem BMI 34.0-34.9,adult (Z68.34) Active confirmed 732687969 Problem Other chronic pain (G89.29) Active confirmed 64489729 Problem Status cardiac pacemaker (Z95.0) Active confirmed 071858487 Problem Atherosclerosis of [place] coronary artery of [place] heart without angina pectoris (I25.10) Active confirmed 8683187319851 Problem Memory loss (R41.3) Active confirmed 48 755604 Problem Primary osteoarthritis involving multiple joints (M15.0) Active confirmed 092204802 Problem Urinary incontinence, urge (N39.41) Active confirmed 56524451 Problem Sacroiliitis (M46.1) Active confirmed 5 8179851 Problem BMI 35.0-35.9,adult (Z68.35) Active confirmed 803768923 Problem Gastroesophageal reflux disease with esophagitis without hemorrhage (K21.00) Active confirmed 357653665 VITAL SIGNS Heart Rate 90 /min 06/23/2023 Temperature 98.3 degrees Fahrenheit 06/23/2023 Oximetry 98%RA 06/23/2023 Blood pressure diastolic 68 mm Hg 06/23/2023 Height 5 ft 3 in in 06/23/2023 Blood pressure systolic 122 mm Hg 06/23/2023 Weight 221 lbs 06/23/2023 BMI 39.14 kg/m2 06/23/2023 Encounters Encounter Location Date Provider Diagnosis [place] [address] [address] 03/02/2023 Josekarmen Mendoza [place] [address] [address] 09/10/2022 Jose Mendoza HTN (hypertension) I 10 ; Primary osteoarthritis involving multiple joints M15.0 and Chronic pain syndrome G89.4 [place] [facility] [address] [address] 12/08/2022 Jose Mendoza Immunization(s) administered Z23 [facility] [address] [address] 12/17/2022 Jose Mendoza Primary osteoarthrit is involving multiple joints M15.0 ; Chronic pain syndrome G89.4 ; HTN (hypertension) I10 and Atherosclerosis [place] coronary artery of [place] heart without angina pectoris I25.[address] [place] [address] [address] 03/04/2023 Jose Mendoza Memory loss R41.3 ; Hyperlipemia, idiopathic familial E78.5 ; Primary osteoarthritis involving multiple joints M15.0 ; Atherosclerosis [place] coronary artery of [place] heart without angina pectoris I25.10 ; Gastroesophageal reflux disease with esophagitis without hemorrhage K21.00 and Routine medical exam Z00.00 [place] [facility] [address] [address] 03/30/2023 Jose Mendoza Mild cognitive impairment G31.84 and Chronic pain syndrome G89.4 [place] [facility] [address] [address] 05/12/2023 Gifty Amezcua Right arm pain M79.6 01 and Abnormality of soft tissue on examination M79.9 [place] [facility] [address] [address] 06/03/2023 Jose Mendoza Acute pain of right shoulder M25.511 ; Primary osteoarthritis involving multiple joints M15.0 ; Atherosclerosis [place] coronary artery of [place] heart without angina pectoris I25.10 and HTN (hypertension) I10 [place] [facility] [address] [address] 06/23/2023 Gifty Amezcua Right acute otitis m edia H66.91 ; Acute cough R05.1 and Acute rhinitis J00 [place] [facility] [address] [address] 07/23/2022 Jose Besson [place] [facility] [address] [address] 07/27/2022 Jose Besson [place] [facility] [address] [address] 07/31/2022 Josekarmen Mendoza Primary osteoarthrit is involving multiple joints M15.0 [place] [facility] [address] [address] 08/28/2022 Jose Besson Primary osteoarthrit is involving multiple joints M15.0 [place] [facility] [address] [address] 09/04/2022 Jose Besson [place] [facility] [address] [address] 09/16/2022 Josekarmen Mendoza Breast cancer screen ing by mammogram Z12.31 [place] [facility] [address] [address] 09/29/2022 Jose Besson Primary osteoarthrit is involving multiple joints M15.0 [facility] [address] [place] [address] 10/29/2022 Jose Besson Primary osteoarthrit is involving multiple joints M15.0 [facility] [address] [place] [address] 11/26/2022 Jose Besson Primary osteoarthrit is involving multiple joints M15.0 [facility] [address] [place] [address] 12/17/2022 Jose Besson [facility] [address] [place] [address] 12/25/2022 Jose Besson Primary osteoarthrit is involving multiple joints M15.0 [facility] [address] [place] [address] 12/31/2022 Jose Besson [facility] [address] [place] [address] 01/25/2023 Jose Besson Primary osteoarthrit is involving multiple joints M15.0 [facility] [address] [place] [address] 02/24/2023 Jose Besson Primary osteoarthrit is involving multiple joints M15.0 [facility] [address] [place] [address] 03/25/2023 Jose Besson Primary osteoarthrit is involving multiple joints M15.0 [facility] [address] [place] [address] 04/23/2023 Jose Besson Primary osteoarthrit is involving multiple joints M15.0 [facility] [address] [place] [address] 05/18/2023 Gifty Amezcua Right upper limb tia n M79.601 [facility] [address] [place] [address] 05/24/2023 Jose Besson Primary osteoarthrit is involving multiple joints M15.0 [facility] [address] [address] 06/22/2023 Jose Besson [facility] [address] [place] [address] 06/30/2023 Gifty Amezcua ASSESSMENTS Encounter Date Diagnosis Assessment Notes Treatment Notes Treatment Clinical Notes 05/18/2023 Right upper limb tia n (ICD-10 - M79.601) 03/25/2023 Primary osteoarthritis involving multiple joints (ICD-10 - M15.0) 12/25/2022 Primary osteoarthritis involving multiple joints (ICD-10 - M15.0) 09/16/2022 Breast cancer screening by mammogram (ICD-10 - Z12.31) 11/26/2022 Primary osteoarthritis involving multiple joints (ICD-10 [...] osteoarthritis involving multiple joints (ICD-10 - M15.0) 09/29/2022 Primary osteoarthritis involving multiple joints (ICD-10 - M15.0) 10/29/2022 Primary osteoarthritis involving multiple joints (ICD-10 - M15.0) 12/08/2022 Immunization(s) administered (ICD-10 - Z23) 12/17/2022 Chronic pain syndrom e (ICD-10 - G89.4) Patient has been compliant with our office and [place] regulations r.e. meds. No concerns on my part about diversion or misuse. Labs and Yuri reports reviewed and are appropriate. 12/17/2022 Primary osteoarthritis involving multiple joints (ICD-10 - M15.0) Dexamethasone 1 mL administered by me in the left deltoid. Continue other medications. Doing well with her pain medication as noted below 01/25/2023 Primary osteoarthritis involving multiple joints (ICD-10 - M15.0) 02/24/2023 Primary osteoarthritis involving multiple joints (ICD-10 - M15.0) 03/04/2023 Hyperlipemia, idiopathic familial (ICD-10 - E78.5) Check lipids. I will review these personally. 03/30/2023 Chronic pain syndrom e (ICD-10 - [...] of her deficiencies are not in the executive/visuospati al area but are in the memory/retention of [...] notes below re: opiate use. 04/23/2023 Primary osteoarthritis involving multiple joints (ICD-10 - M15.0) 05/12/2023 Right arm pain (ICD-10 - M79.601) Rec US and consider referral to orthopedics pending results...rec use of topical analgesics such as Biofreeze for pain 05/12/2023 Abnormality of soft tissue on examination (ICD-10 - M79.9) 05/24/2023 Primary osteoarthritis involving multiple joints (ICD-10 - M15.0) 03/04/2023 Memory loss (ICD-10 - R41.3) Memory screening concerning. Patient self-reported memory loss concerning. Labs will be drawn for amyloid ratio and other testing. All reviewed personally and schedule patient back for a full memory evaluation. 06/03/2023 Primary osteoarthritis involving multiple joints (ICD-10 - M15.0) Patient [...] (ICD-10 - M25.511) Would benefit from steroid injection/orthopedic evaluation. This will be set up. No change in pain medication. 06/23/2023 Right acute otitis media (ICD-10 - H66.91) diagnosis, treatment recommendations and return precautions were reviewed 06/23/2023 Acute cough (ICD-10 - R05.1) 06/23/2023 Acute rhinitis (ICD-10 - J00) 03/04/2023 Primary osteoarthritis involving multiple joints (ICD-10 - M15.0) Remains on hydrocodone 7.5 every 6. Obviously reducing this would be ideal but we will reevaluate after labs are back and see how pain control is after her orthopedic/pain management evaluation Due for urine drug testing. They will be scheduled for [employer] branded drug screening tomorrow. 06/03/2023 Atherosclerosis [place] coronary artery of [place] heart without angina pectoris (ICD-10 - I25.10) Not a candidate for NSAIDs given her CAD. No changes in plan from this perspective. Appears euvolemic 12/17/2022 HTN (hypertension) (ICD-10 - I10) Stable. Blood pressure under excellent control. Labs normal. 09/10/2022 Chronic pain syndrom e (ICD-10 - G89.4) Patient has been compliant with our office and [place] regulations r.e. meds. No concerns on my part about diversion or misuse. Labs and Yuri reports reviewed and are appropriate. 12/17/2022 Atherosclerosis [place] coronary artery of [place] heart without angina pectoris (ICD-10 - I25.10) No evidence of recurrence of disease. Continue current goal-directed therapy. Follow-up 3 months for labs. Up-to-date with vaccinations 06/03/2023 HTN (hypertension) (ICD-10 - I10) Good blood Pressure control, follow-up 3 months for reevaluation, pain reevaluation and complete lab levels 03/04/2023 Atherosclerosis [place] coronary artery of [place] heart without angina pectoris (ICD-10 - I25.10) [...] Abdomen 08/17/2012 Physical Therapy 11/10/2013 Physical Therapy 04/08/2021 Physical Therapy 08/01/2019 Mammogram : Bilateral 09/16/2022 Mammogram : Bilateral 03/07/2021 Occupational Therapy : Eval & Treatment 08/01/2019 H-VIT D, 1,25-HYDROXY 10/30/2016 H-VIT D, 25-HYDROXY 04/02/2016 C-CMP 02/27/2020 C-LIPID PANEL 02/27/2020 C-URINE CULTURE 11/11/2012 C-URINE CULTURE 11/23/2017 M-Vitamin D 25 Hydroxy 03/04/2021 M-Vitamin D 25 Hydroxy 03/05/2022 Next Appt Details Provider Name:Jose Mendoza, 07/08/2023 10:45:00 AM, [address], [address], Provider Name:Jose Mendoza, 09/02/2023 10:45:00 AM, [address], [address], Insurance Providers Payer Name Payer Address Payer Phone Subscriber Number Group Number Insured Name Patient Relationship to Insured Coverage Start Date Coverage End Date [employer] [address] [address] [place] [address] [phone] [id number] Gina Stone Self - patient is the [...]
--- NOTE | 2023-07-05 12:28 | A.OFFVIS_ITS ---
[facility] Pain Management SOAP Note Subjective:: Patient is a pleasant 78-year-old female who presents today for follow-up of bilateral intra-articular shoulder injections on 06/22/2023. Patient states she had at least 60% relief in her left shoulder however it did not do anything in her right shoulder. Patient states she continues to have chronic aching and throbbing into this joint that is worse with increased activity or range of motion. She does state the pain interferes with her ability perform activities of daily living such as cooking and cleaning. Patient is interested in we can provide any additional injection therapy. Patient is prescribed pregabalin from our office 75 mg twice a day and does not need any refills until July. She is also prescribed Acosta from her PCP. Patient does state that she feels a little under the weather and has been having more shortness of breath. She states she was put on antibiotic and is scheduled for a follow-up appointment with Dr. Mendoza's office on . Patient states she is unsure if it is related to allergies however up until this point last year she had not had any seasonal allergies.Her Yuri has been reviewed and is appropriate. Review of Systems: General: No recent weight changes, no fever, no sleep disturbances Respiratory: No cough, no shortness of air, no recurring pulmonary infections Cardiovascular/peripheral vascular: No chest pain, no palpitations, no edema, no shortness of breath Gastrointestinal: No new onset incontinence, normal bowel movements reported Genitourinary: No new onset incontinence Musculoskeletal: Right shoulder pain Psychiatric: [Normal mood/affect] Neurological: [Denies weakness in extremities], [denies balance issues] Objective:: Physical Exam: General: Alert and oriented x3, no acute distress, pleasant and cooperative Lungs: Respirations even and unlabored, symmetrical chest expansion Eyes: PERRL Musculoskeletal: Flexion and extension of right shoulder somewhat guarded secondary to pain, [antalgic gait noted] Neurological: Speech clear, no gross sensory deficit Assessment:: bilateral shoulder pain, osteoarthritis bilateral shoulders Plan:: Patient continues to experience significant pain in her right shoulder with limited range of motion. Patient did have significant relief with her last intra-articular injection in the left. I have discussed with patient that she may get beneficial relief with a right suprascapular nerve block. Risk and benefits were discussed with patient and she would like to proceed forward with this plan of care. Patient has been instructed to contact the clinic with any concerns before the next appointment. Dr. Sorensen has reviewed this note and agrees with this plan of care. This note was dictated using voice recognition software and make contain errors or omissions. [facility] Disclaimer: The information contained in this section may have been updated after the patient was seen, as this information can be updated by other users. Medical History History of pacemaker Hypertension Hyperlipidemia Surgical History History of hip surgery History of shoulder surgery History of hysterectomy Family History Other No significant family history Social History Smoking Status: Never smoker alcohol intake: never substance use type: denies use current occupational status: other Travel in the last 8 weeks: None household members: spouse housing: house current occupational exposures/hazards: No caffeine: Yes
[2023-07-05 13:18] VITALS: BP 127/54; PULSE 78; RESP 18; O2SAT 97; BMI 35.9
== END 2023-07-05 23:59 | disposition home or self-care (01) ==
LOC: SC.PAIN 11:22
PROVIDERS: PCP Internal Medicine Adolescent Medicine; Visit Provider Nurse Practitioner Family
DX: M19.011 Primary osteoarthritis, right shoulder (principal); M19.012 Primary osteoarthritis, left shoulder
CPT/HCPCS: 99212; G0463

== ENCOUNTER 2023-07-08 12:30 | Outpatient (CLI) | payer MEDICARE, SELFPAY ==
--- OUTSIDE RECORDS SUMMARY | 2023-07-08 12:32 | XMS_ITS | Patient Health Record ---
Author Name Unknown Organization [facility] Address [address] [facility] [address] [place] [address] Care Team Providers Care Cake Inspector Name Role Phone Jose Mendoza Primary Care Provider [phone] GoldieGifty Hortensia [phone] ALLERGIES Allergen (clinical drug ingredient) Drug/Non Drug Allergy documented on EMR Reaction Allergy Type Onset Date Status oseltamivir Tamiflu dizziness Drug Allergy Activ e RESULTS Component Value Reference Range Notes LIPID PANEL, STANDARD ([id number]) Reviewed date:03/12/2023 11:58:53 AM Interpretation: Performing Lab:[facility] [address] [facility] Chun [id number] Dewayne Tamayo Notes/Report: FASTING: NO FASTING:NO NON-FASTING; NON-FASTING CHOLESTEROL, TOTAL 179 <200 mg/dL HDL CHOLESTEROL [...] equation in the estimation of LDL-C. Alonzo SS et al. RITA. 2013;310(19): 3637-7661 (http://education.QuestDiagno stics.com/faq/DZA844) CHOL/HDLC RATIO 2.9 <5.0 (calc) NON HDL CHOLESTEROL 118 <130 mg/dL (calc) For patients with diabetes plus 1 major ASCVD risk factor, treating to a non-HDL-C goal of <100 mg/dL (LDL-C of <70 mg/dL) is considered a therapeutic option. DEMENTIA PANEL, [facility]() ([id number]) Reviewed date:03/12/2023 11:58:53 AM Interpretation: Performing Lab:CB, [facility] [address], [facility] [id number] Dewayne Tamayo Notes/Report: NON-FASTING; NON-FASTING FASTING:NO FASTING: [...] MPV 12.4 7.5-12.5 fL ABSOLUTE NEUTROPHILS 3499 8744-8341 cells/uL ABSOLUTE LYMPHOCYTES 2722 850-3900 cells/uL ABSOLUTE MONOCYTES 749 200-950 cells/uL ABSOLUTE EOSINOPHILS 187 15-500 cells/uL ABSOLUTE BASOPHILS 43 0-200 cells/uL NEUTROPHILS 48.6 LYMPHOCYTES 37.8 MONOCYTES 10.4 EOSINOPHILS 2.6 BASOPHILS 0.6 TSH 1.07 0.40-4.50 mIU/L VITAMIN B12 288 360-0272 pg/mL Please Note: Although the reference range [...] Questions (FAQs) or visit the following link http://education.ngmoco/faq/FAQ88 Enhanced report to follow. QUEST AD DETECT(TM), BETA AM YLOID 42/40 RATIO, P ([id number]) Reviewed date:03/12/2023 11:58:53 AM Interpretation: Performing Lab:GRICELDA, [facility],[address] [facility]alsCA[address] Angelica Armijo MD,PhD,LESLY Notes/Report: NON-FASTING ABETA 42 [...] analytical performance characteristics have been determined by [employer]. It has not been cleared or approved by FDA. This assay has been validated pursuant to the CLIA regulations and is used for clinical purposes. Ultrasound : Soft Tissue Reviewed date:05/27/2023 10:54:02 AM Interpretation: Performing Lab: Notes/Report: MEDICATIONS Medication SIG (Take, Route, Frequency, Duration) Notes Start Date End Date Status hydroCHLOROthiazide 25 mg 1/2 tab(s) ora lly once a day for 90 days Active furosemide 40 mg 1/2 tablet orally once a day for 90 days Active fluticasone nasal 50 mcg/inh 1 spray(s) in each nostril 2 times a day for 30 days 06/23/2023 Active Acetaminophen-Hydrocodone Bitartrate 325 mg-7.5 mg 1 tab(s) orally every 6 hours for 30 days 06/22/2023 Active alendronate 70 mg 1 tab(s) orally once a week for 90 days Active isosorbide mononitrate 60 mg 1 tab(s) or ally once a day (in the morning) for 90 days Active aspirin 81 mg 1 tab(s) orally once a day Active pantoprazole 40 mg 1 tab(s) orally twic e a day for 90 days Active Gemtesa 75 mg 1 tab(s) orally once a day for 90 days Active Nebivolol 10 mg TAKE 1 TABLET EVERY DAY for 90 Active Peridex 0.12% 15 mL orally 2 times a day for 30 days 12/31/2022 Active cefdinir 300 mg 1 cap(s) orally ever y 12 hours for 10 days 06/30/2023 Active methocarbamol 500 mg 1-2 tab(s) orally 3 times a day for 5 day(s) 03/26/2020 Active Xarelto 20 mg TAKE 1 TABLET ONE TIME DAILY IN THE EVENING for 90 days Active baclofen 10 mg 1 tab(s) orally 3 times a day for 90 days Active Os-Brodie 500 1250 mg 1 tab(s) orally bid Active lisinopril 40 mg 1 tab(s) orally once a day for 90 days Active multivitamin Multiple Vitamins 1 cap(s) orally once a day Active pravastatin 80 [...] Problem Chronic pain syndrome (G89.4) Active confirmed 996832552 Problem Urge incontinence (N39.41) Active confirmed 35429792 Problem HTN (hypertension) (I10) Active confirmed 11309982 Problem Vitamin D deficiency (E55.9) Active confirmed 75141310 Problem Osteoporosis (M81.0) Active confirmed 6 9528323 Problem Hyperlipemia, idiopathic familial (E78.5) Active confirmed 582246149 Problem Mild cognitive impairment (G31.84) Active confirmed 329057910 Problem GERD without esophagitis (K21.9) Active confirmed 447092729 Problem BMI 34.0-34.9,adult (Z68.34) Active confirmed 753108453 Problem Other chronic pain (G89.29) Active confirmed 95308383 Problem Status cardiac pacemaker (Z95.0) Active confirmed 318791975 Problem Atherosclerosis of [place] coronary artery of [place] heart without angina pectoris (I25.10) Active confirmed 2332080316512 Problem Memory loss (R41.3) Active confirmed 48 984510 Problem Primary osteoarthritis involving multiple joints (M15.0) Active confirmed 813113796 Problem Urinary incontinence, urge (N39.41) Active confirmed 58038335 Problem Sacroiliitis (M46.1) Active confirmed 5 9783616 Problem BMI 35.0-35.9,adult (Z68.35) Active confirmed 613391223 Problem Gastroesophageal reflux disease with esophagitis without hemorrhage (K21.00) Active confirmed 559558440 VITAL SIGNS Heart Rate 76 /min 07/08/2023 Temperature 98.4 degrees Fahrenheit 07/08/2023 Oximetry 99%RA 07/08/2023 Blood pressure diastolic 52 mm Hg 07/08/2023 Height 5 ft 3 in in 07/08/2023 Blood pressure systolic 112 mm Hg 07/08/2023 Weight 220 lbs 07/08/2023 BMI 38.97 kg/m2 07/08/2023 Encounters Encounter Location Date Provider Diagnosis [facility] [address] [address] 03/02/2023 Jose Mendoza [address] [address] 07/08/2023 Jose Mendoza Exertional dyspnea R06.[address] [address] 09/10/2022 Jose Mendoza HTN (hypertension) I 10 ; Primary osteoarthritis involving multiple joints M15.0 and Chronic pain syndrome G89.4 [facility] [address] [address] 12/08/2022 Jose Mendoza Immunization(s) administered Z23 [facility] [address] [address] 12/17/2022 Jose Mendoza Primary osteoarthrit is involving multiple joints M15.0 ; Chronic pain syndrome G89.4 ; HTN (hypertension) I10 and Atherosclerosis of [place] coronary artery of [place] heart without angina pectoris I25.[address] [address] 03/04/2023 Jose Mendoza Memory loss R41.3 ; Hyperlipemia, idiopathic familial E78.5 ; Primary osteoarthritis involving multiple joints M15.0 ; Atherosclerosis of [place] coronary artery of [place] heart without angina pectoris I25.10 ; Gastroesophageal reflux disease with esophagitis without hemorrhage K21.00 and Routine medical exam Z00.00 [facility] [address] [address] 03/30/2023 Jose Mendoza Mild cognitive impairment G31.84 and Chronic pain syndrome G89.4 [facility] [address] [address] 05/12/2023 Gifty Amezcua Right arm pain M79.6 01 and Abnormality of soft tissue on examination M79.9 [facility] [address] [address] 06/03/2023 Jose Mendoza Acute pain of right shoulder M25.511 ; Primary osteoarthritis involving multiple joints M15.0 ; Atherosclerosis of [place] coronary artery of [place] heart without angina pectoris I25.10 and HTN (hypertension) I10 [facility] [address] [address] 06/23/2023 Gifty Amezcua Right acute otitis m edia H66.91 ; Acute cough R05.1 and Acute rhinitis J00 [facility] [address] [address] 07/23/2022 Jose Mendoza [facility] [address] [address] 07/27/2022 Jose Besson [facility] [address] [address] 07/31/2022 Jose Mendoza Primary osteoarthrit is involving multiple joints M15.0 [facility] [address] [address] 08/28/2022 Jose Mendoza Primary osteoarthrit is involving multiple joints M15.0 [facility] [address] [address] 09/04/2022 Jose Mendoza [facility] [address] [address] 09/16/2022 Jose Mendoza Breast cancer screen ing by mammogram Z12.31 [facility] [address] [address] 09/29/2022 Jose Mendoza Primary osteoarthrit is involving multiple joints M15.0 [facility] [address] [place] [address] 10/29/2022 Jose Besson Primary osteoarthrit is involving multiple joints M15.0 [facility] [address] [place] [address] 11/26/2022 Jose Besson Primary osteoarthrit is involving multiple joints M15.0 [facility] [address] [place] [address] 12/17/2022 Jose Besson [facility] [address] [place] [address] 12/25/2022 Jose Besson Primary osteoarthrit is involving multiple joints M15.0 [facility] [address] [place] [address] 12/31/2022 Jose Besson [facility] [address] [place] [address] 01/25/2023 Jose Besson Primary osteoarthrit is involving multiple joints M15.0 [facility] [address] [place] [address] 02/24/2023 Jose Besson Primary osteoarthrit is involving multiple joints M15.0 [facility] [address] [place] [address] 03/25/2023 Jose Besson Primary osteoarthrit is involving multiple joints M15.0 [facility] [address] [place] [address] 04/23/2023 Jose Besson Primary osteoarthrit is involving multiple joints M15.0 [facility] [address] [place] [address] 05/18/2023 Gifty Amezcua Right upper limb tia n M79.601 [facility] [address] [place] [address] 05/24/2023 Jose Besson Primary osteoarthrit is involving multiple joints M15.0 [facility] [address] [place] [address] 06/22/2023 Jose Besson [facility] [address] [place] [address] 06/30/2023 Gifty Amezcua ASSESSMENTS Encounter Date Diagnosis [...] osteoarthritis involving multiple joints (ICD-10 - M15.0) 11/26/2022 Primary osteoarthritis involving multiple joints (ICD-10 - M15.0) 12/08/2022 Immunization(s) administered (ICD-10 - Z23) 12/17/2022 Chronic pain syndrom e (ICD-10 - G89.4) Patient has been compliant with our office and [place] regulations r.e. meds. No concerns on my part about diversion or misuse. Labs and Yuri reports reviewed and are appropriate. 07/31/2022 Primary osteoarthritis involving multiple joints (ICD-10 - M15.0) 08/28/2022 Primary osteoarthritis involving multiple joints (ICD-10 - M15.0) 12/17/2022 Primary osteoarthritis involving multiple joints (ICD-10 - M15.0) Dexamethasone 1 mL administered by me in the left deltoid. Continue other medications. Doing well with her pain medication as noted below 12/25/2022 Primary osteoarthritis involving multiple joints (ICD-10 - M15.0) 01/25/2023 Primary osteoarthritis involving multiple joints (ICD-10 - M15.0) 02/24/2023 Primary osteoarthritis involving multiple joints (ICD-10 - M15.0) 03/25/2023 Primary osteoarthritis involving multiple joints (ICD-10 - M15.0) 03/30/2023 [...] soft tissue on examination (ICD-10 - M79.9) 05/18/2023 Right upper limb tia n (ICD-10 - M79.601) 05/24/2023 Primary osteoarthritis involving multiple joints (ICD-10 - M15.0) 03/04/2023 Hyperlipemia, idiopathic familial (ICD-10 - E78.5) Check lipids. I will review these personally. 06/03/2023 Primary osteoarthritis involving multiple joints (ICD-10 [...] treatment recommendations and return precautions were reviewed 03/04/2023 Memory loss (ICD-10 - R41.3) Memory screening concerning. Patient self-reported memory loss concerning. Labs will be drawn for amyloid ratio and other testing. All reviewed personally and schedule patient back for a full memory evaluation. 06/23/2023 Acute cough (ICD-10 - R05.1) 07/08/2023 Exertional dyspnea (ICD-10 - R06.09) New onset exertional dyspnea. Concern for potential underlying pulmonary edema given history of multi-vessel CAD and acute worsening of lower extremity edema and abdominal distenstion. Will proceed with CXR today and schedule TTE to further evaluate. Re-start lasix 20 mg daily. Re-check renal function and electrolytes at follow-up. 03/04/2023 Primary osteoarthritis involving multiple joints (ICD-10 - M15.0) Remains on hydrocodone 7.5 every 6. Obviously reducing this would be ideal but we will reevaluate after labs are back and see how pain control is after her orthopedic/pain management evaluation Due for urine drug testing. They will be scheduled for [employer] drug screening tomorrow. 06/03/2023 Atherosclerosis of [place] coronary artery of [place] heart without angina pectoris (ICD-10 - I25.10) Not a candidate for NSAIDs given her CAD. No changes in plan from this perspective. Appears euvolemic 06/23/2023 Acute rhinitis (ICD-10 - J00) 09/10/2022 Chronic pain syndrom e (ICD-10 - G89.4) Patient has been compliant with our office and [place] regulations r.e. meds. No concerns on my part about diversion or misuse. Labs and Yuri reports reviewed and are appropriate. 12/17/2022 HTN (hypertension) (ICD-10 - I10) Stable. Blood pressure under excellent control. Labs normal. 12/17/2022 Atherosclerosis of [place] coronary artery of [place] heart without angina pectoris (ICD-10 - I25.10) No evidence of recurrence of disease. Continue current goal-directed therapy. Follow-up 3 months for labs. Up-to-date with vaccinations 06/03/2023 HTN (hypertension) (ICD-10 - I10) Good blood Pressure control, follow-up 3 months for reevaluation, pain reevaluation and complete lab levels 03/04/2023 Atherosclerosis of [place] coronary artery of [place] heart without angina pectoris (ICD-10 - I25.10) [...] Name Order Date Ultrasound : Abdomen 08/17/2012 Echocardiogram 07/08/2023 Physical Therapy 08/01/2019 Physical Therapy 11/10/2013 Physical Therapy 04/08/2021 Mammogram : Bilateral 09/16/2022 Mammogram : Bilateral 03/07/2021 Occupational Therapy : Eval & Treatment 08/01/2019 H-VIT D, 1,25-HYDROXY 10/30/2016 H-VIT D, 25-HYDROXY 04/02/2016 C-CMP 02/27/2020 C-LIPID PANEL 02/27/2020 C-URINE CULTURE 11/23/2017 C-URINE CULTURE 11/11/2012 X ray : Chest PA and Lateral 07/08/2023 M-Vitamin D 25 Hydroxy 03/05/2022 M-Vitamin D 25 Hydroxy 03/04/2021 Next Appt Details Provider Name:Jose Mendoza, 09/02/2023 10:45:00 AM, [address] [place] [address], [id number], Insurance Providers Payer Name Payer Address Payer Phone Subscriber Number Group Number Insured Name Patient Relationship to Insured Coverage Start Date Coverage End Date [employer] [address] [address] [place] [address] [phone] [id number] Gina Stoen Self - patient is the insured MEDICATIONS [...]
--- NOTE | 2023-07-08 12:39 | XR_ITS ---
FINAL REPORT CLINICAL HISTORY: EXERTIONAL DYSPNEA COMPARISON: 07/17/2022 FINDINGS: Two views of the chest were obtained. Cardiomegaly is noted. A left-sided pacemaker is present. The mediastinum is normal. No acute pulmonary abnormality is identified. There is no pneumothorax. The bony thorax is intact. IMPRESSION: No active cardiopulmonary disease. Reviewed, Interpreted and Dictated by Lele Rinaldi III, MD Transcribed by Dawn Bocanegra Authenticated and [facility]
== END 2023-07-08 23:59 | disposition home or self-care (01) ==
LOC: RAD 12:31
PROVIDERS: PCP Internal Medicine Adolescent Medicine; Visit Provider Internal Medicine Adolescent Medicine
DX: R06.09 Other forms of dyspnea (principal)
CPT/HCPCS: 71046

== ENCOUNTER 2023-07-16 14:37 | Outpatient (CLI) | payer MEDICARE, SELFPAY ==
--- NOTE | 2023-07-16 | CA_ITS ---
APPROVED REPORT EXAM: Comprehensive 2D, Doppler, and color-flow Echocardiogram Manager Operations: Angeles Carrion RT(R) Ht: 5 ft 3 in Wt: 210lbs BSA: 1.97 BP: 134/82 mmHg Indications: SOB, HTN, hyperlipidemia, ex smoker, obesity, edema 2D Dimensions LVEF (Willingham's) 74.30 % F: 54 - 74 LV Volume 80.70 mL F: 46 - 106 LV Volume Index 40.8 mL/m2 F: 29 - 61 LA Volume 70.40 mL LA Volume Index 35.56 mL/m2 (M/F) 16-34 EF AP4 71.90 % EF AP2 77.5 % EF BP 74.3 % GL Strain -16.6 % M-Mode Dimensions RVDd 3.26 cm (0.9-2.6) LA Diam 4.43 cm (1.9-4.0) LVDd 4.54 cm (3.5-5.7) LVDs 3.56 cm (3.5-5.7) IVSd 1.14 cm (0.6-1.1) PWd 1.19 cm (0.6-1.1) EF (Teich) 43.90% FS 21.60% EDV (Teich) 94.40 mL ESV (Teich) 53.00 mL LV Diastology E Decel Time 233 (160-240 msec) E/A Ratio 0.8 Mitral Valve MV E Max Richie. 115.0 (40-130 cm/s) MV A Velocity 139.0 (40-130 cm/s) E/A Ratio 0.83 MV PHT 68.0 ms Left Ventricle The left ventricle is normal size. The left ventricular systolic function is normal. The left ventricular ejection fraction is within the normal range. There is increased LV wall thickness. There is normal LV segmental wall motion. Grade 2 diastolic dysfunction is present. LVEF is 60%. Right Ventricle Right ventricle is mildly dilated. The right ventricular systolic function is normal. There is a device lead present in the right ventricle. Atria Left atrium is mildly dilated. The right atrium size is normal. There is no Doppler evidence of interatrial shunt. Aortic Valve The aortic valve is mildly thickened. There is no aortic valvular stenosis. Trace aortic regurgitation. Mitral Valve The mitral valve leaflets are mildly thickened. Mild mitral regurgitation. No evidence of mitral valve stenosis. Tricuspid Valve The tricuspid valve leaflets are thin and pliable. Trace tricuspid regurgitation. RVSP is 10 mmHg + RA pressure. Pulmonic Valve The pulmonary valve is normal in structure. Trace pulmonic regurgitation. Great Vessels The aortic root is normal in size. The ascending aorta is not well-visualized. The IVC is not well-visualized. Pericardium There is no pericardial effusion. Conclusion Normal biventricular systolic function. Grade 2 diastolic dysfunction. Mild RV dilation. Mild RA dilation. Mild MR. Electronically signed by : Ana Wang MD 07/22/2023 13:03:30
--- OUTSIDE RECORDS SUMMARY | 2023-07-16 14:40 | XMS_ITS | Patient Health Record ---
Author Name Unknown Organization [facility] Address [address] [facility] [address] [place] [address] Care Team Providers Care Account Services Manager Name Role Phone Jose Mendoza Primary Care Provider GoldieGifty jeffers Hortensia [phone] ALLERGIES Allergen (clinical drug ingredient) Drug/Non Drug Allergy documented on EMR Reaction Allergy Type Onset Date Status oseltamivir Tamiflu dizziness Drug Allergy Activ e RESULTS Component Value Reference Range Notes X ray : Chest PA and Lateral Reviewed date:07/09/2023 02:10:42 PM Interpretation: Performing Lab: Notes/Report: Ultrasound : Soft Tissue Reviewed date:05/27/2023 10:54:02 AM Interpretation: Performing Lab: Notes/Report: LIPID PANEL, STANDARD ([id number]) Reviewed date:03/12/2023 11:58:53 AM Interpretation: Performing Lab:[facility], [facility] [facility] CampusJhazUE[address] Dewayne Tamayo Notes/Report: NON-FASTING; NON-FASTING FASTING:NO FASTING: [...] of LDL-C. Alonzo SS et al. RITA. 2013;310(14): 7815-0296 (http://education.SchoolMint.com/faq/RND267) CHOL/HDLC RATIO 2.9 <5.0 (calc) NON HDL CHOLESTEROL 118 <130 mg/dL (calc) For patients with diabetes plus 1 major ASCVD risk factor, treating to a non-HDL-C goal of <100 mg/dL (LDL-C of <70 mg/dL) is considered a therapeutic option. DEMENTIA PANEL, [facility]() ([id number]) Reviewed date:03/12/2023 11:58:53 AM Interpretation: Performing Lab:[facility]ANN [facility] [address], Chun RobertsQsngPN[address] Dewayne Tamayo Notes/Report: NON-FASTING; NON-FASTING FASTING:NO FASTING: [...] MPV 12.4 7.5-12.5 fL ABSOLUTE NEUTROPHILS [phone] cells/uL ABSOLUTE LYMPHOCYTES 2722 850-3900 cells/uL ABSOLUTE MONOCYTES 749 200-950 cells/uL ABSOLUTE EOSINOPHILS 187 15-500 cells/uL ABSOLUTE BASOPHILS 43 0-200 cells/uL NEUTROPHILS 48.6 LYMPHOCYTES 37.8 MONOCYTES 10.4 EOSINOPHILS 2.6 BASOPHILS 0.6 TSH 1.07 0.40-4.50 mIU/L VITAMIN B12 671 836-4139 pg/mL Please Note: Although the reference range [...] Questions (FAQs) or visit the following link http://education.QuNano/faq/FAQ88 Enhanced report to follow. QUEST AD DETECT(TM), BETA AM YLOID 42/40 RATIO, P ([id number]) Reviewed date:03/12/2023 11:58:53 AM Interpretation: Performing Lab:EZ, [facility],[address] [address] [facility] HospitalCA[address] Angelica Armijo MD,PhD,LESLY Notes/Report: NON-FASTING ABETA [...] analytical performance characteristics have been determined by [facility]. It has not been cleared or approved by FDA. This assay has been validated pursuant to the CLIA regulations and is used for clinical purposes. MEDICATIONS Medication SIG (Take, Route, Frequency, Duration) [...] once a week for 90 days Active furosemide 40 mg 1 tab(s) orally once a day for 30 days 07/08/2023 Active isosorbide mononitrate 60 mg 1 tab(s) [...] (Pneumococcal conjugate 20) IM Intramuscular 08/26/2021 Administered Fluzone High Dose IM Intramuscular 11/26/2016 Administered Fluzone High Dose IM Intramuscular 11/23/2017 Administered Fluzone High Dose IM Intramuscular 11/29/2018 Administered Fluzone High Dose IM Intramuscular 11/28/2019 Administered Fluzone High Dose IM Intramuscular 12/10/2020 Administered Fluzone High Dose IM Intramuscular 11/25/2021 Administered Fluzone High Dose IM Intramuscular 12/08/2022 Administered Covid Yokasta Unknown 05/02/2020 Administered Covid Yokasta Unknown 12/26/2020 Administered Prevnar PCV-13 (Pneumococcal conjugate 13) IM Intramuscular 01/22/2015 Administered Pneumovax-23 (pneumococccal vaccine polyvalent)2 years or older IM Intramuscular 11/01/2013 Administered Influenza (Fluzone)--Medicare only IM Intramuscular 12/03/2014 Administered Influenza (Fluzone)--Medicare only IM Intramuscular 11/15/2015 Administered Fluvirin--Influenza vaccine 3+ year IM Intramuscular 11/23/2012 Administered Fluvirin--Influenza vaccine 3+ year IM Intramuscular 11/24/2013 Administered Adacel (Tdap) Unknown 04/23/2015 Administered SOCIAL HISTORY Sex Assigned At : Social History Observation Description Sex Assigned At Unknown PROBLEMS Problem Type ICD Code Onset Dates Problem Status W/U Status Risk SNOMED Code Notes Problem Chronic pain syndrome (G89.4) Active confirmed 071099661 Problem Urge incontinence (N39.41) Active confirmed 43794778 Problem HTN (hypertension) (I10) Active confirmed 59389265 Problem Vitamin D deficiency (E55.9) Active confirmed 00504490 Problem Osteoporosis (M81.0) Active confirmed 6 1725840 Problem Hyperlipemia, idiopathic familial (E78.5) Active confirmed 534222019 Problem Mild cognitive impairment (G31.84) Active confirmed 590098889 Problem GERD without esophagitis (K21.9) Active confirmed 976098827 Problem BMI 34.0-34.9,adult (Z68.34) Active confirmed 615381958 Problem Other chronic pain (G89.29) Active confirmed 70832370 Problem Status cardiac pacemaker (Z95.0) Active confirmed 136793915 Problem Atherosclerosis of [place] coronary artery of [place] heart without angina pectoris (I25.10) Active confirmed 5658530544478 Problem Memory loss (R41.3) Active confirmed 48 809562 Problem Primary osteoarthritis involving multiple joints (M15.0) Active confirmed 950726775 Problem Urinary incontinence, urge (N39.41) Active confirmed 83101631 Problem Sacroiliitis (M46.1) Active confirmed 5 1233317 Problem BMI 35.0-35.9,adult (Z68.35) Active confirmed 503759125 Problem Gastroesophageal reflux disease with esophagitis without hemorrhage (K21.00) Active confirmed 445216235 VITAL SIGNS Heart Rate 76 /min 07/08/2023 Temperature 98.4 degrees Fahrenheit 07/08/2023 Oximetry 99%RA 07/08/2023 Blood pressure diastolic 52 mm Hg 07/08/2023 Height 5 ft 3 in in 07/08/2023 Blood pressure systolic 112 mm Hg 07/08/2023 Weight 220 lbs 07/08/2023 BMI 38.97 kg/m2 07/08/2023 Encounters Encounter Location Date Provider Diagnosis [place] [address] [address] 03/02/2023 Jose Mendoza [place] [address] [address] 09/10/2022 Jose Mendoza HTN (hypertension) I 10 ; Primary osteoarthritis involving multiple joints M15.0 and Chronic pain syndrome G89.4 [place] [facility] [address] [address] 12/08/2022 Jose Mendoza Immunization(s) administered Z23 [facility] [address] [address] 12/17/2022 Jose Mendoza Primary osteoarthrit is involving multiple joints M15.0 ; Chronic pain syndrome G89.4 ; HTN (hypertension) I10 and Atherosclerosis of [place] coronary artery of [place] heart without angina pectoris I25.[address] [place] [address] [address] 03/04/2023 Jose Mendoza Memory loss R41.3 ; Hyperlipemia, idiopathic familial E78.5 ; Primary osteoarthritis involving multiple joints M15.0 ; Atherosclerosis of [place] coronary artery of [place] heart without angina pectoris I25.10 ; Gastroesophageal reflux disease with esophagitis without hemorrhage K21.00 and Routine medical exam Z00.00 [place] [facility] [address] [address] 03/30/2023 Jose Mendoza Mild cognitive impairment G31.84 and Chronic pain syndrome G89.4 [place] [facility] [address] [address] 05/12/2023 Gifty Amezcua Right arm pain M79.6 01 and Abnormality of soft tissue on examination M79.9 [place] [facility] [address] [address] 06/03/2023 Jose Mendoza Acute pain of right shoulder M25.511 ; Primary osteoarthritis involving multiple joints M15.0 ; Atherosclerosis of [place] coronary artery of [place] heart without angina pectoris I25.10 and HTN (hypertension) I10 [place] [facility] [address] [address] 06/23/2023 Gifty Amezcua Right acute otitis m edia H66.91 ; Acute cough R05.1 and Acute rhinitis J00 [place] [facility] [address] [address] 07/08/2023 Jose Mendoza Exertional dyspnea R06.09 [place] [facility] [address] [address] 07/23/2022 Jose Mendoza [place] [facility] [address] [address] 07/27/2022 Jose Besson [place] [facility] [address] [address] 07/31/2022 Jose Mendoza Primary osteoarthrit is involving multiple joints M15.0 [place] [facility] [address] [address] 08/28/2022 Jose Mendoza Primary osteoarthrit is involving multiple joints M15.0 [place] [facility] [address] [address] 09/04/2022 Jose Mendoza [place] [facility] [address] [address] 09/16/2022 Jose Mendoza Breast cancer screen ing by mammogram Z12.31 [place] [facility] [address] [place] [address] 09/29/2022 Jose Mendoza Primary osteoarthrit is involving multiple joints M15.0 [place] [facility] [address] [place] [address] 10/29/2022 Jose Mendoza Primary osteoarthrit is involving multiple joints M15.0 [place] [facility] [address] [place] [address] 11/26/2022 Jose Mendoza Primary osteoarthrit is involving multiple joints M15.0 [place] [facility] [address] [place] [address] 12/17/2022 Jose Mendoza [place] [facility] [address] [place] [address] 12/25/2022 Jose Mendoza Primary osteoarthrit is involving multiple joints M15.0 [place] [facility] [address] [place] [address] 12/31/2022 Jose Mendoza [place] [facility] [address] [place] [address] 01/25/2023 Jose Mendoza Primary osteoarthrit is involving multiple joints M15.0 [place] [facility] [address] [place] [address] 02/24/2023 Jose Mendoza Primary osteoarthrit is involving multiple joints M15.0 [place] [facility] [address] [place] [address] 03/25/2023 Jose Mendoza Primary osteoarthrit is involving multiple joints M15.0 [place] [facility] [address] [place] [address] 04/23/2023 Jose Mendoza Primary osteoarthrit is involving multiple joints M15.0 [place] [facility] [address] [place] [address] 05/18/2023 Gifty Amezcua Right upper limb tia n M79.601 [place] [facility] [address] [place] [address] 05/24/2023 Jose Mendoza Primary osteoarthrit is involving multiple joints M15.0 [place] [facility] [address] [place] [address] 06/22/2023 Jose Mendoza [address] [address] 06/30/2023 Gifty Amezcua ASSESSMENTS Encounter Date Diagnosis [...] osteoarthritis involving multiple joints (ICD-10 - M15.0) 05/24/2023 Primary osteoarthritis involving multiple joints (ICD-10 - M15.0) 03/25/2023 Primary osteoarthritis involving multiple joints (ICD-10 - M15.0) 12/17/2022 Chronic pain syndrom e (ICD-10 - G89.4) Patient has been compliant with our office and [place] regulations r.e. meds. No concerns on my part about diversion or misuse. Labs and Yuri reports reviewed and are appropriate. 12/17/2022 Primary osteoarthritis involving multiple joints (ICD-10 - M15.0) Dexamethasone 1 mL administered by me in the left deltoid. Continue other medications. Doing well with her pain medication as noted below 07/31/2022 Primary osteoarthritis involving multiple joints (ICD-10 [...] patient back for a full memory evaluation. 03/30/2023 Chronic pain syndrom e (ICD-10 - [...] soft tissue on examination (ICD-10 - M79.9) 06/03/2023 Primary osteoarthritis involving multiple joints (ICD-10 [...] reviewed 06/23/2023 Acute cough (ICD-10 - R05.1) 07/08/2023 Exertional dyspnea (ICD-10 - R06.09) New onset exertional dyspnea. Concern for potential underlying pulmonary edema given history of multi-vessel CAD and acute worsening of lower extremity edema and abdominal distenstion. Will proceed with CXR today and schedule TTE to further evaluate. Re-start lasix 20 mg daily. Re-check renal function and electrolytes at follow-up. 05/18/2023 Right upper limb tia n (ICD-10 - M79.601) 12/08/2022 Immunization(s) administered (ICD-10 - Z23) 06/03/2023 Atherosclerosis of [place] coronary artery of [place] heart without angina pectoris (ICD-10 - I25.10) Not a candidate for NSAIDs given her CAD. No changes in plan from this perspective. Appears euvolemic 06/23/2023 Acute rhinitis (ICD-10 - J00) 03/04/2023 Primary osteoarthritis involving multiple joints (ICD-10 - M15.0) Remains on hydrocodone 7.5 every 6. Obviously reducing this would be ideal but we will reevaluate after labs are back and see how pain control is after her orthopedic/pain management evaluation Due for urine drug testing. They will be scheduled for [employer] branded drug screening tomorrow. 09/10/2022 Chronic pain syndrom e (ICD-10 - G89.4) Patient has been compliant with our office and [place] regulations r.e. meds. No concerns on my part about diversion or misuse. Labs and Yuri reports reviewed and are appropriate. 12/17/2022 HTN (hypertension) (ICD-10 - I10) Stable. Blood pressure under excellent control. Labs normal. 12/17/2022 Atherosclerosis of [place] coronary artery of [place] heart without angina pectoris (ICD-10 - I25.10) No evidence of recurrence of disease. Continue current goal-directed therapy. Follow-up 3 months for labs. Up-to-date with vaccinations 03/04/2023 Atherosclerosis of [place] coronary artery of [place] heart without angina pectoris (ICD-10 - I25.10) On appropriate medications, check lipids 06/03/2023 HTN (hypertension) (ICD-10 - I10) Good blood Pressure control, follow-up 3 months for reevaluation, pain reevaluation and complete lab levels 03/04/2023 Gastroesophageal reflux disease with esophagitis without [...] : Abdomen 08/17/2012 Echocardiogram 07/08/2023 Physical Therapy 11/10/2013 Physical Therapy 08/01/2019 Physical Therapy 04/08/2021 Mammogram : Bilateral 03/07/2021 Mammogram : Bilateral 09/16/2022 Occupational Therapy : Eval & Treatment 08/01/2019 H-VIT D, 1,25-HYDROXY 10/30/2016 H-VIT D, 25-HYDROXY 04/02/2016 C-CMP 02/27/2020 C-LIPID PANEL 02/27/2020 C-URINE CULTURE 11/23/2017 C-URINE CULTURE 11/11/2012 M-Vitamin D 25 Hydroxy 03/05/2022 M-Vitamin D 25 Hydroxy 03/04/2021 Next Appt Details Provider Name:Jose Mendoza, 09/02/2023 10:45:00 AM, [address] [facility], [place], [address], Insurance Providers Payer Name Payer Address Payer Phone Subscriber Number Group Number Insured Name Patient Relationship to Insured Coverage Start Date Coverage End Date [employer] [address] [address] [place] [address] [phone] [id number] Gina Stone Self - patient is the [...]
== END 2023-07-16 23:59 | disposition home or self-care (01) ==
LOC: RT 14:38
PROVIDERS: PCP Internal Medicine Adolescent Medicine; Visit Provider Internal Medicine Adolescent Medicine
DX: R06.09 Other forms of dyspnea (principal)
CPT/HCPCS: 93306

== ENCOUNTER 2023-07-23 16:08 | Observation (INO) | payer MEDICARE, SELFPAY ==
[2023-07-23] VITALS (19 sets, daily range): BP systolic 108–149; BP diastolic 34–76; PULSE 63–78; RESP 16–20; TEMP 36.5–37.3; O2SAT 95–100; BMI 38.0; BMI 38.4
--- NOTE | 2023-07-23 16:19 | ECG_ITS ---
APPROVED REPORT Exam: Resting ECG HR:73 bpm ECG Measurements Heart Rate 73 AXES AZ 165 P 73 QRSd 93 QRS 59 QT 381 T 69 QTc 406 Conclusion SINUS RHYTHM NORMAL ECG UNCONFIRMED REPORT Electronically signed by : Earl Johnson, 07/23/2023 23:15:16
--- NOTE | 2023-07-23 16:28 | XR_ITS ---
PROCEDURE INFORMATION: Exam: XR Chest Exam date and time: 07/23/2023 4:28 PM Age: 78 years old Clinical indication: Shortness of breath TECHNIQUE: Imaging protocol: Radiologic exam of the chest. Views: 1 view. COMPARISON: CR XR CHEST 2V 08/07/2023 12:43 FINDINGS: Tubes, catheters and devices: There is a 2 lead pacemaker on the left side of the chest. Lungs: The chest is hypoventilatory but clear. No acute infiltrates are identified Pleural spaces: Unremarkable. No pleural effusion. No pneumothorax. Heart/Mediastinum: Unremarkable. No cardiomegaly. Bones/joints: Unremarkable. IMPRESSION: Clear hypoventilatory chest
--- NOTE | 2023-07-23 16:33 | PC.NURSE ---
XR AT BEDSIDE
[2023-07-23 16:36] LABS: Basophils # 0.1 K/mm3 (0-0.2); Basophils % 0.7 % (0.1-2.0); Eosinophils # 0.2 K/mm3 (0.0-0.4); Eosinophils % 1.8 % (0.1-12.0); Hematocrit 22.5 % (37.0-47.0); Lymphocytes # 2.9 K/mm3 (0.7-4.5); Lymphocytes % 33.8 % (10-50); Mean Corpuscular HGB Conc 29.8 g/dL (31.8-35.4); Mean Corpuscular Volume 73.9 fl (81-99); Mean Platelet Volume 8.4 fl (7.4-10.4); Monocytes # 0.6 K/mm3 (0.1-1.0); Monocytes % 7.2 % (1.7-9.3); Neutrophils # 4.9 K/mm3 (1.8-7.8); Neutrophils % 56.5 % (37.0-80.0); Platelet Count 342 K/mm3 (142-424); Red Blood Count 3.05 M/mm3 (4.20-5.40); Red Cell Distribution Width 16.4 % (11.5-17.5); White Blood Count 8.6 K/mm3 (4.8-10.8)
[2023-07-23 16:39] LABS: Chloride 106 mmol/L (98-107)
[2023-07-23 16:40] LABS: Hemoglobin 6.7 g/dL (12.2-16.2); Potassium 4.5 mmoL/L (3.5-5.1); Sodium 140 mmol/L (136-145)
[2023-07-23 16:42] LABS: Alanine Aminotransferase 21 U/L (12-78); Albumin Level 4.2 g/dl (3.5-5.0); Albumin/Globulin Ratio 1.4 (1.1-1.8); Alkaline Phosphatase 82 U/L (38-126); Anion Gap 13.5 mEq/L (5-15); Aspartate Amino Transferase 29 U/L (14-36); Bilirubin,Total 0.4 mg/dl (0.2-1.3); Blood Urea Nitrogen 55 mg/dl (7-17); Carbon Dioxide 25 mmol/L (22.0-30.0); Creatinine Clearance Estimated 28 mL/min (50-200); Estimated Glomerular Filt Rate 19 ml/min (>60); GFR (African American) 22 ML/MIN (>60); Globulin 3.1 g/dL (1.3-3.2); Total Protein,Serum 7.3 g/dl (6.3-8.2)
--- NOTE | 2023-07-23 16:42 | PC.NURSE ---
Vanda from lab called critical on patient Hemoglobin 6.7 repeated and verified.
[2023-07-23 16:43] LABS: Calcium 9.6 mg/dl (8.4-10.2); Glucose 101 mg/dl (74-100)
[2023-07-23 17:06] LABS: Troponin I < 0.01 ng/ml (0.00-0.034)
--- NOTE | 2023-07-23 17:37 | PC.NURSE ---
DR ELLIOTT SPEAKING WITH DR EWING FOR ADMISSION
--- NOTE | 2023-07-23 17:39 | HMH.EDGENADL ---
Discharge Plan Disposition Patient Disposition: Admitted Prescriptions Prescriptions: No Action Complete Multivitamin tablet 1 tab PO DAILY aspirin [Adult Low Dose Aspirin] 81 mg tablet,delayed release (DR/EC) 81 mg PO DAILY calcium carbonate-vitamin D3 [Os-Brodie 500 + D3] 500 mg(1,250mg) -200 unit tablet 1 tab PO BID baclofen 10 mg tablet 10 mg PO TID alendronate 70 mg tablet 70 mg PO QWEEK pantoprazole 40 mg tablet,delayed release (DR/EC) 40 mg PO BID furosemide 40 mg tablet 20 mg PO DAILY PRN (Reason: diuretic) isosorbide mononitrate 60 mg tablet extended release 24 hr 60 mg PO DAILY pravastatin 80 mg tablet 80 mg PO DAILY lisinopril 40 mg tablet 40 mg PO DAILY spironolactone 25 mg tablet 12.5 mg PO DAILY Bystolic 2.5 mg tablet 2.5 mg PO DAILY rivaroxaban 20 MG tablet 20 mg PO DAILY pregabalin 75 MG capsule 75 mg PO BID Qty: 60 1RF Referrals Follow up/Referrals: Jose Mendoza MD [Primary Care Provider] - See instructions Clinical Impressions Clinical Impression: Symptomatic anemia, GABRIELA (acute kidney injury) Discharge ED Provider: Raymond Johnson General Adult HPI General Chief complaint: Shortness of Breath/Dyspnea Stated complaint: SOA,weakness Time Seen by Provider: 07/23/23 17:19 Mode of Arrival: Ambulatory Source of Information: Patient Limitations: No Limitations Description of Symptoms (Recalled from ER Triage Doc. by RN): PT REPORTS INCREASED SOB FOR THE LAST 6-7 WEEKS, STATES SHE HAS SEEN HER PCP 2-3 TIMES AND THEY HAVE RAN SEVERAL TESTS INCLUDING AN ECHO, CHEST XRAY, AND STRESS TEST, SHE ALSO STATES SHE IS VERY WEAK AND HAS BODY ACHES, ALSO REPORTS L SIDED CHEST HEAVINESS History of Present Illness HPI narrative: Is an 78-year-old female presenting today with dyspnea on exertion over the last 6 to 8 weeks. States she seen her primary care doctor and has had an echo chest x-ray stress test which was all unremarkable and she presents with worsening symptoms. Primary care doctor told her to come here for a CT scan of her chest presumably to rule out a pulmonary embolism as she has a history of DVT and is on Xarelto. She had no sudden onset of her symptoms. She is asymptomatic at rest but states she is very fatigued. She denies any melena hematochezia any significant pain anywhere etc. Has had a colonoscopy within the last 10 years which was unremarkable. Related Data Home Medications Medication Instructions Recorded Confirmed alendronate 70 mg tablet 70 mg PO QWEEK Bone loss 12/23/17 07/05/23 aspirin 81 mg tablet,delayed 81 mg PO DAILY heart health 12/23/17 07/05/23 release (Adult Low Dose Aspirin) baclofen 10 mg tablet 10 mg PO TID muscle spasms 12/23/17 07/05/23 calcium carbonate 500 mg-vitamin 1 tab PO BID suppliment 12/23/17 07/05/23 D3 5 mcg (200 unit) tablet (Os-Brodie 500 + D3) furosemide 40 mg tablet 20 mg PO DAILY PRN diuretic 12/23/17 07/05/23 isosorbide mononitrate 60 mg 60 mg PO DAILY Chest pain 12/23/17 07/05/23 tablet,extended release 24 hr lisinopril 40 mg tablet 40 mg PO DAILY High blood pressure 12/23/17 07/05/23 multivitamin,bz-[id number]-qladylvm 1 tab PO DAILY SUPPLIMENT 12/23/17 07/05/23 (Complete Multivitamin tablet) nebivolol 2.5 mg tablet (Bystolic) 2.5 mg PO DAILY Hypertension 12/23/17 07/05/23 pantoprazole 40 mg tablet,delayed 40 mg PO BID GERD 12/23/17 07/05/23 release pravastatin 80 mg tablet 80 mg PO DAILY Cholesterol 12/23/17 07/05/23 spironolactone 25 mg tablet 12.5 mg PO DAILY fluid retention 12/23/17 07/05/23 rivaroxaban 20 mg tablet 20 mg PO DAILY Blood thinner 09/02/21 07/05/23 Previous Rx's Medication Instructions Recorded pregabalin 75 mg capsule 75 mg PO BID Pain #60 caps 06/17/23 Allergies Allergy/AdvReac Type Severity Reaction Status Date / Time diltiazem [DILTIAZEM] Allergy Intermediate HEART Verified 06/22/23 11:34 [facility] Disclaimer: The information contained in this section may have been updated after the patient was seen, as this information can be updated by other users. Medical History (Updated 07/23/23 @ 17:38 by Raymond Johnson MD) History of pacemaker Hypertension Hyperlipidemia Surgical History History of hip surgery History of shoulder surgery History of hysterectomy Family History Other No significant family history Social History Smoking Status: Never smoker alcohol intake: never substance use type: denies use current occupational status: other Travel in the last 8 weeks: None household members: spouse housing: house current occupational exposures/hazards: No caffeine: Yes ROS Obtained: Yes All systems reviewed & no additional complaints except as documented Physical Exam General General appearance: alert and other (Very pale to appearance) Respiratory Respiratory exam: Present normal lung sounds bilaterally; Absent respiratory distress Cardiovascular Cardiovascular exam: Present regular rate and normal rhythm Abdominal Exam Abdominal exam: Present soft; Absent distention or tenderness Rectal Exam Rectal exam: Present other (No obvious hematochezia or melena on exam stool sent for Hemoccult testing) Neurological Exam Neurological exam: Present alert and oriented X3 Medical Decision Making Yuri Inquiry Pt receiving controlled substance: No Vital Signs: 07/23/23 16:10 07/23/23 16:30 Temperature 98.5 F Temperature Source Oral Pulse Rate 69 Pulse Rate [Left Radial] 77 Respiratory Rate 18 20 Blood Pressure 144/68 H Blood Pressure [Right Arm] 149/62 H Blood Pressure Mean 93 Blood Pressure Mean [Right Arm] 91 Blood Pressure Source [Right Arm] Automatic Cuff Blood Pressure Position [Right Arm] Sitting 02 Sat by Pulse Oximetry 95 99 Oxygen Delivery Method Room Air Lab Data Lab results reviewed: Yes I reviewed the patient's lab results. Lab Results 07/23/23 16:26: WBC 8.6, RBC 3.05 L, Hgb 6.7 L*, Hct 22.5 L, MCV 73.9 L, MCH 22.0 L, MCHC 29.8 L, RDW 16.4, Plt Count 342, MPV 8.4, Neut % (Auto) 56.5, Lymph % (Auto) 33.8, Day % (Auto) 7.2, Eos % (Auto) 1.8, Baso % (Auto) 0.7, Neut # (Auto) 4.9, Lymph # (Auto) 2.9, Day # (Auto) 0.6, Eos # (Auto) 0.2, Baso # (Auto) 0.1, Sodium 140, Potassium 4.5, Chloride 106, Carbon Dioxide 25, Anion Gap 13.5, BUN 55 H, Creatinine 2.50 H, Estimated Creat Clear 28, Estimated GFR 19 L*, Est GFR ( Amer) 22 L, Glucose 101 H, Calcium 9.6, Total Bilirubin 0.4, AST 29, ALT 21, Alkaline Phosphatase 82, Troponin I < 0.01, Total Protein 7.3, Albumin 4.2, Globulin 3.1, Albumin/Globulin Ratio 1.4 07/23/23 16:26 07/23/23 16:26 Orders (Tests/Meds): ORDERS Category Date Time Status Type and Screen Stat BBK 07/23/23 16:50 Results XR chest portable Stat Exams 07/23/23 16:28 Completed Complete Blood Count Auto Diff Stat Lab 07/23/23 16:26 Completed Comprehensive Metabolic Panel Stat Lab 07/23/23 16:26 Completed Occult Blood,Stool Stat Lab 07/23/23 17:30 Received Troponin I Q3H Lab 07/23/23 19:30 Ordered Troponin I Q3H Lab 07/23/23 22:30 Ordered Troponin I Stat Lab 07/23/23 16:26 Completed Medical Decision Narrative: Patient with above history and physical. She is very pale with her appearance hemoglobin has returned and is less than transfusion level. Will transfuse 1 unit PRBCs. She does have a history of DVT and while pulmonary embolism is possible less likely as we have an alternative explanation at this point, regarding oxygen delivery with profound anemia. Chest x-ray performed was unremarkable. Patient also has acute kidney injury baseline creatinine is around 1.3 today it is 2.5. GFR is less than 30 I am unable to do a contrasted CT scan. I do not suspect she has any significant intrathoracic or intra-abdominal hemorrhage but that remains possible she has no symptoms of any chest or abdomen discomfort at the moment. Patient will be admitted for further management and evaluation of her anemia and her acute kidney injury. Critical Care Critical Care Time Critical Care Time: Yes Attestation: On 07/23/23, the high probability of a clinically significant, sudden or life threatening deterioration of the following system(s) required my full and direct attention, intervention and personal management. The time I documented below is in addition to time spent performing reported procedures but includes the following listed in this critical care notation. Total Time Total Critical Care Time: 35
--- NOTE | 2023-07-23 17:41 | PC.NURSE ---
BARIATRIC NURSE NOTIFIED OF ADMISSION
--- NOTE | 2023-07-23 17:53 | PC.NURSE ---
CALLED REPORT TO ARIC HELLER
[2023-07-23 17:54] LABS: Occult Blood,Stool Negative (Negative)
--- NOTE | 2023-07-23 18:04 | PC.NURSE ---
arrived by w/c from ED
--- OUTSIDE RECORDS SUMMARY | 2023-07-23 18:11 | XMS_ITS | Patient Health Record ---
Author Name Unknown Organization [facility] Address [address] [facility] [address] [place] [address] Care Team Providers Care Radio Aerial Installer Name Role Phone Jose Mendoza Primary Care Provider GoldieGifty jeffers Hortensia [phone] ALLERGIES Allergen (clinical drug ingredient) Drug/Non Drug Allergy documented on EMR Reaction Allergy Type Onset Date Status oseltamivir Tamiflu dizziness Drug Allergy Activ e RESULTS Component Value Reference Range Notes Echocardiogram (Not yet revi ewed by provider) Interpretation: Performing Lab: Notes/Report: X ray : Chest PA and Lateral Reviewed date:07/09/2023 02:10:42 PM Interpretation: Performing Lab: Notes/Report: Ultrasound : Soft Tissue Reviewed date:05/27/2023 10:54:02 AM Interpretation: Performing Lab: Notes/Report: LIPID PANEL, STANDARD ([id number]) Reviewed date:03/12/2023 11:58:53 AM Interpretation: Performing Lab:CB, [facility] [id number] [facility], [facility]ikvFJ[address] Dewayne Tamayo Notes/Report: NON-FASTING; NON-FASTING FASTING:NO FASTING: [...] LDL-C. Alonzo REYES et al. RITA. 2013;310(19): 5382-0163 (http://education.[employer]/faq/LJY581) CHOL/HDLC RATIO 2.9 <5.0 (calc) NON HDL CHOLESTEROL 118 <130 mg/dL (calc) For patients with diabetes plus 1 major ASCVD risk factor, treating to a non-HDL-C goal of <100 mg/dL (LDL-C of <70 mg/dL) is considered a therapeutic option. DEMENTIA PANEL, [facility]() ([id number]) Reviewed date:03/12/2023 11:58:53 AM Interpretation: Performing Lab:JO[facility] [address], [facility] CenterZuaoHB[address] Dewayne Tamayo Notes/Report: NON-FASTING; NON-FASTING FASTING:NO FASTING: [...] MPV 12.4 7.5-12.5 fL ABSOLUTE NEUTROPHILS 3499 7475-8696 cells/uL ABSOLUTE LYMPHOCYTES 2722 850-3900 cells/uL ABSOLUTE MONOCYTES 749 200-950 cells/uL ABSOLUTE EOSINOPHILS 187 15-500 cells/uL ABSOLUTE BASOPHILS 43 0-200 cells/uL NEUTROPHILS 48.6 LYMPHOCYTES 37.8 MONOCYTES 10.4 EOSINOPHILS 2.6 BASOPHILS 0.6 TSH 1.07 0.40-4.50 mIU/L VITAMIN B12 727 125-1264 pg/mL Please Note: Although the reference range [...] Questions (FAQs) or visit the following link http://education.Bal[employer]/faq/FAQ88 Enhanced report to follow. [employer] AD DETECT(TM), BETA AM YLOID 42/40 RATIO, P ([id number]) Reviewed date:03/12/2023 11:58:53 AM Interpretation: Performing Lab:GRICELDA, [facility],[address] [facility] Angelica Armijo MD,PhD,LESLY Notes/Report: NON-FASTING ABETA 42 [...] analytical performance characteristics have been determined by [employer]. It has not been cleared or approved by FDA. This assay has been validated pursuant to the CLIA regulations and is used for clinical purposes. MEDICATIONS Medication SIG (Take, Route, Frequency, Duration) Notes Start Date End Date Status Acetaminophen-Hydrocodone Bitartrate 325 mg-7.5 mg 1 tab(s) orally every 6 hours for 30 days 07/22/2023 Active hydroCHLOROthiazide 25 mg 1/2 tab(s) ora lly once a day for 90 days Active furosemide 40 mg 1/2 tablet orally once a day for 90 days Active fluticasone nasal 50 mcg/inh 1 spray(s) in each nostril 2 times a day for 30 days 06/23/2023 Active alendronate 70 mg 1 tab(s) orally [...] Problem Chronic pain syndrome (G89.4) Active confirmed 445942095 Problem Urge incontinence (N39.41) Active confirmed 84324869 Problem HTN (hypertension) (I10) Active confirmed 87912568 Problem Vitamin D deficiency (E55.9) Active confirmed 33711726 Problem Osteoporosis (M81.0) Active confirmed 6 6219742 Problem Hyperlipemia, idiopathic familial (E78.5) Active confirmed 852211048 Problem Mild cognitive impairment (G31.84) Active confirmed 525667405 Problem GERD without esophagitis (K21.9) Active confirmed 081948345 Problem BMI 34.0-34.9,adult (Z68.34) Active confirmed 359362199 Problem Other chronic pain (G89.29) Active confirmed 98110542 Problem Status cardiac pacemaker (Z95.0) Active confirmed 289394799 Problem 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) Active confirmed 2296429473227 Problem Memory loss (R41.3) Active confirmed 48 669337 Problem Primary osteoarthritis involving multiple joints (M15.0) Active confirmed 512068189 Problem Urinary incontinence, urge (N39.41) Active confirmed 12394515 Problem Sacroiliitis (M46.1) Active confirmed 5 2743628 Problem BMI 35.0-35.9,adult (Z68.35) Active confirmed 133127714 Problem Gastroesophageal reflux disease with esophagitis without hemorrhage (K21.00) Active confirmed 725214836 VITAL SIGNS Heart Rate 76 /min 07/08/2023 Temperature 98.4 degrees Fahrenheit 07/08/2023 Oximetry 99%RA 07/08/2023 Blood pressure diastolic 52 mm Hg 07/08/2023 Height 5 ft 3 in in 07/08/2023 Blood pressure systolic 112 mm Hg 07/08/2023 Weight 220 lbs 07/08/2023 BMI 38.97 kg/m2 07/08/2023 Encounters Encounter Location Date Provider Diagnosis [address] [address] 03/02/2023 Jose Mendoza [place] [address] 09/10/2022 Jose Mendoza HTN (hypertension) I 10 ; Primary osteoarthritis involving multiple joints M15.0 and Chronic pain syndrome G89.[address] [place] [facility] ([place], [place]) [address] [address] 12/08/2022 Jose Mendoza Immunization(s) administered Z23 [address] [address] 12/17/2022 Jose Mendoza Primary osteoarthrit is involving multiple joints M15.0 ; Chronic pain syndrome G89.4 ; HTN (hypertension) I10 and Atherosclerosis of nightm[place] coronary artery of night[place] heart without angina pectoris I25.[address] [place] [address] 03/04/2023 Jose Mendoza Memory loss R41.3 ; Hyperlipemia, idiopathic familial E78.5 ; Primary osteoarthritis involving multiple joints M15.0 ; Atherosclerosis of nightm[place] coronary artery of nightm[place] heart without angina pectoris I25.10 ; Gastroesophageal reflux disease with esophagitis without hemorrhage K21.00 and Routine medical exam Z00.00 [facility] [address] [address] 03/30/2023 Jose Mendoza Mild cognitive impairment G31.84 and Chronic pain syndrome G89.4 [facility] [address] [address] 05/12/2023 Giftykelsi Amezcua Right arm pain M79.6 01 and Abnormality of soft tissue on examination M79.9 [facility] [address] [address] 06/03/2023 Jose Mendoza Acute pain of right shoulder M25.511 ; Primary osteoarthritis involving multiple joints M15.0 ; Atherosclerosis of nightm[place] coronary artery of nightm[place] heart without angina pectoris I25.10 and HTN (hypertension) I10 [facility] [address] [address] 06/23/2023 Gifty Amezcua Right acute otitis m edia H66.91 ; Acute cough R05.1 and Acute rhinitis J00 [facility] [address] [address] 07/08/2023 Jose Mendoza Exertional dyspnea R06.09 [facility] [address] [address] 07/23/2022 Jose Besson [facility] [address] [address] 07/27/2022 Jose Besson [facility] [address] [address] 07/31/2022 Jose Reji Primary osteoarthrit is involving multiple joints M15.0 [facility] [address] [address] 08/28/2022 Jose Besbetsy Primary osteoarthrit is involving multiple joints M15.0 [facility] [address] [address] 09/04/2022 Jose Besson [facility] [address] [address] 09/16/2022 Jose Mendoza Breast cancer screen ing by mammogram Z12.31 [facility] [place] [address] [place] [address] 09/29/2022 Jose Mendoza Primary osteoarthrit is involving multiple joints M15.0 [facility] [place] [address] [place] [address] 10/29/2022 Jose Mendoza Primary osteoarthrit is involving multiple joints M15.0 [facility] [place] [address] [place] [address] 11/26/2022 Jose Mendoza Primary osteoarthrit is involving multiple joints M15.0 [facility] [place] [address] [place] [address] 12/17/2022 Jose Mendoza [facility] [place] [address] [place] [address] 12/25/2022 Jose Mendoza Primary osteoarthrit is involving multiple joints M15.0 [facility] [place] [address] [place] [address] 12/31/2022 Jose Mendoza [facility] [place] [address] [place] [address] 01/25/2023 Josekarmen Mendoza Primary osteoarthrit is involving multiple joints M15.0 [facility] [place] [address] [place] [address] 02/24/2023 Jose Mendoza Primary osteoarthrit is involving multiple joints M15.0 [facility] [place] [address] [place] [address] 03/25/2023 Jose [place] Primary osteoarthrit is involving multiple joints M15.0 [facility] [place] [address] [place] [address] 04/23/2023 Jose [place]on Primary osteoarthrit is involving multiple joints M15.0 [facility] [place] [address] [place] [address] 05/18/2023 Gifty Amezcua Right upper limb tia n M79.601 [facility] [place] [address] [place] [address] 05/24/2023 Jose Besson Primary osteoarthrit is involving multiple joints M15.0 [facility] [place] [address] [facility] [address] [place] [address] 06/22/2023 Jose Mendoza [address] [address] 06/30/2023 Gifty Amezcua [address] [address] 07/22/2023 Jose Mendoza ASSESSMENTS Encounter Date Diagnosis Assessment Notes Treatment [...] Check lipids. I will review these personally. 03/25/2023 Primary osteoarthritis involving multiple joints (ICD-10 [...] osteoarthritis involving multiple joints (ICD-10 - M15.0) 06/03/2023 Primary osteoarthritis involving multiple joints (ICD-10 [...] renal function and electrolytes at follow-up. 03/04/2023 Memory loss (ICD-10 - R41.3) Memory screening concerning. Patient self-reported memory loss concerning. Labs will be drawn for amyloid ratio and other testing. All reviewed personally and schedule patient back for a full memory evaluation. 02/24/2023 Primary osteoarthritis involving multiple joints (ICD-10 [...] with her pain medication as noted below 08/28/2022 Primary osteoarthritis involving multiple joints (ICD-10 - M15.0) 07/31/2022 Primary osteoarthritis involving multiple joints (ICD-10 - M15.0) 12/17/2022 HTN (hypertension) (ICD-10 - I10) Stable. Blood pressure under excellent control. Labs normal. 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 No changes in plan from this perspective. Appears euvolemic 03/04/2023 Primary osteoarthritis involving multiple joints (ICD-10 - M15.0) Remains on hydrocodone 7.5 every 6. Obviously reducing this would be ideal but we will reevaluate after labs are back and see how pain control is after her orthopedic/pain management evaluation Due for urine drug testing. They will be scheduled for precision branded drug screening tomorrow. 06/23/2023 Acute rhinitis (ICD-10 - J00) 09/10/2022 Chronic pain syndrom e (ICD-10 - G89.4) Patient has been compliant with our office and [place] regulations r.e. meds. No concerns on my part about diversion or misuse. Labs and Yuri reports reviewed and are appropriate. 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 (ICD-10 - I25.10) On appropriate medications, check lipids 06/03/2023 HTN (hypertension) (ICD-10 - I10) Good blood Pressure control, follow-up 3 months for reevaluation, pain reevaluation and complete lab levels 12/17/2022 Atherosclerosis of nightm[place] coronary artery of nightm[place] heart without angina pectoris (ICD-10 - I25.10) [...] : Abdomen 08/17/2012 Echocardiogram 07/08/2023 Physical Therapy 04/08/2021 Physical Therapy 08/01/2019 Physical Therapy 11/10/2013 Mammogram : Bilateral 03/07/2021 Mammogram : Bilateral 09/16/2022 Occupational Therapy : Eval & Treatment 08/01/2019 H-VIT D, 1,25-HYDROXY 10/30/2016 H-VIT D, 25-HYDROXY 04/02/2016 C-CMP 02/27/2020 C-LIPID PANEL 02/27/2020 C-URINE CULTURE 11/23/2017 C-URINE CULTURE 11/11/2012 M-Vitamin D 25 Hydroxy 03/04/2021 M-Vitamin D 25 Hydroxy 03/05/2022 Next Appt Details Provider Name:Jose Mendoza, 09/02/2023 10:45:00 AM, [address] [facility], [place], [address], Insurance Providers Payer Name Payer Address Payer Phone Subscriber Number Group Number Insured Name Patient Relationship to Insured Coverage Start Date Coverage End Date [facility] MEDICARE [address] [address] [place] [address] [id number] Gina Stone Self - patient is the [...]
--- NOTE | 2023-07-23 19:44 | EXP.HP ---
History of Present Illness *Admission Date: 07/23/23 *Reason for visit:: SOB *History of present illness: This is a 78-year-old obese female with PMHx of HTN, HLD, pacemaker in situ, DVT on xarelto, presented today for evaluation of dyspnea on exertion over the last 6 to 8 weeks. States she seen her primary care doctor and has had an echo chest x-ray stress test which was all unremarkable and she presents with worsening symptoms. Primary care doctor told her to come here for a CT scan of her chest presumably to rule out a pulmonary embolism as she has a history of DVT and is on Xarelto. patient is worry about having lung cancer since symptoms mimic a recent family . She had no sudden onset of her symptoms. She is asymptomatic at rest but states she is very fatigued. She denies any melena hematochezia any significant pain anywhere etc. Has had a colonoscopy within the last 10 years which was unremarkable. Admitted for treatment and management. [facility] Disclaimer: The information contained in this section may have been updated after the patient was seen, as this information can be updated by other users. Medical History (Updated 07/24/23 @ 07:23 by Roosevelt Daily APRN) History of pacemaker Hypertension Hyperlipidemia Surgical History History of hip surgery History of shoulder surgery History of hysterectomy Family History Other No significant family history Social History (Updated 07/23/23 @ 18:28 by Flower Cooley RN) Smoking Status: Never smoker alcohol intake: never substance use type: denies use current occupational status: retired and other Travel in the last 8 weeks: None household members: spouse housing: house current occupational exposures/hazards: No caffeine: Yes Review of Systems Review of Systems Review of systems:: pertinent systems reviewed and negative unless documented below Meds Home Medications and Allergies Home Medications Medication Instructions Recorded Confirmed Type alendronate 70 mg tablet 70 mg PO QWEEK Bone loss 12/23/17 07/23/23 History aspirin 81 mg tablet,delayed 81 mg PO DAILY heart health 12/23/17 07/23/23 History release (Adult Low Dose Aspirin) baclofen 10 mg tablet 10 mg PO TID muscle spasms 12/23/17 07/23/23 History calcium carbonate 500 mg-vitamin 1 tab PO BID suppliment 12/23/17 07/23/23 History D3 5 mcg (200 unit) tablet (Os-Brodie 500 + D3) furosemide 40 mg tablet 20 mg PO DAILY PRN diuretic 12/23/17 07/23/23 History isosorbide mononitrate 60 mg 60 mg PO DAILY Chest pain 12/23/17 07/23/23 History tablet,extended release 24 hr lisinopril 40 mg tablet 40 mg PO DAILY High blood pressure 12/23/17 07/23/23 History multivitamin,[id number]-edmx-[id number] 1 tab PO DAILY SUPPLIMENT 12/23/17 07/23/23 History (Complete Multivitamin tablet) nebivolol 2.5 mg tablet (Bystolic) 2.5 mg PO DAILY Hypertension 12/23/17 07/23/23 History pantoprazole 40 mg tablet,delayed 40 mg PO BID GERD 12/23/17 07/23/23 History release pravastatin 80 mg tablet 80 mg PO DAILY Cholesterol 12/23/17 07/23/23 History spironolactone 25 mg tablet 12.5 mg PO DAILY fluid retention 12/23/17 07/23/23 History rivaroxaban 20 mg tablet 20 mg PO DAILY Blood thinner 09/02/21 07/23/23 History pregabalin 75 mg capsule 75 mg PO BID Pain #60 caps 06/17/23 07/23/23 Rx New Prescriptions to Start Prescriptions: Allergies Allergy/AdvReac Type Severity Reaction Status Date / Time diltiazem [DILTIAZEM] Allergy Intermediate HEART Verified 06/22/23 11:34 RACING acetaminophen Allergy Verified 07/23/23 17:53 [From Theraflu Sinus and Cold] pheniramine Allergy Verified 07/23/23 17:53 [From Theraflu Sinus and Cold] phenylephrine Allergy Verified 07/23/23 17:53 [From Theraflu Sinus and Cold] Exam Data for Last 24 hours Vital signs and Labs for Last 24 Hours: Temp Pulse Resp BP Pulse Ox O2 Del Method 98.5 F 70 19 132/64 100 Room Air 07/23/23 18:13 07/23/23 18:53 07/23/23 18:13 07/23/23 18:13 07/23/23 18:13 07/23/23 18:54 Laboratory Results - last 24 hr 07/23/23 16:26: WBC 8.6, RBC 3.05 L, Hgb 6.7 L*, Hct 22.5 L, MCV 73.9 L, MCH 22.0 L, MCHC 29.8 L, RDW 16.4, Plt Count 342, MPV 8.4, Neut % (Auto) 56.5, Lymph % (Auto) 33.8, [place] % (Auto) 7.2, Eos % (Auto) 1.8, Baso % (Auto) 0.7, Neut # (Auto) 4.9, Lymph # (Auto) 2.9, [place] # (Auto) 0.6, Eos # (Auto) 0.2, Baso # (Auto) 0.1, Sodium 140, Potassium 4.5, Chloride 106, Carbon Dioxide 25, Anion Gap 13.5, BUN 55 H, Creatinine 2.50 H, Estimated Creat Clear 28, Estimated GFR 19 L*, Est GFR ( Amer) 22 L, Glucose 101 H, Calcium 9.6, Total Bilirubin 0.4, AST 29, ALT 21, Alkaline Phosphatase 82, Troponin I < 0.01, Total Protein 7.3, Albumin 4.2, Globulin 3.1, Albumin/Globulin Ratio 1.4, Blood Type Confirm O Positive 07/23/23 16:50: Blood Type O Positive, Antibody Screen Negative, Crossmatch (AHG) See Detail 07/23/23 17:30: Stool Occult Blood Negative I & O for Last 24 hours: Intake & Output 07/20/23 07/21/23 07/22/23 07/23/23 23:59 23:59 23:59 23:59 Weight 98.43 kg Constitutional Constitutional: mild distress, obese and cooperative *Routine HEENT Exam Head: Present normocephalic Eye: Present EOMI and PERRL ENT: Present mucous membranes moist *Routine Neck Exam Neck: Present supple; Absent lymphadenopathy *Routine Respiratory Exam Respiratory: Present CTA bilaterally *Routine Cardiovascular Exam Cardiovascular: Present RRR *Routine Abdominal Exam Abdominal: Present soft and normoactive bowel sounds; Absent tenderness *Routine Rectal Exam Rectal:: deferred *Routine Genitalia Exam Genitalia:: deferred *Routine Extremities Exam Extremities: Absent cyanosis, clubbing or edema *Routine Skin Exam Skin: Present pallor and warm; Absent rash *Routine Neurological Exam Neurological: Present alert and oriented X3 H&P: Result Imaging and Cardiology EKG: Status: image reviewed by me, Preliminary report and final report Chest x-ray: Status: image reviewed by me, Preliminary report and final report Assessment and Plan *Assessment and plan (1) Symptomatic anemia: Status: Acute Category: Medical Code(s): D64.9 - Anemia, unspecified (2) Acute kidney injury superimposed on CKD: Status: Acute Category: Medical Code(s): N17.9 - Acute kidney failure, unspecified; N18.9 - Chronic kidney disease, unspecified (3) Chronic dyspnea: Status: Acute Category: Medical Code(s): R06.09 - Other forms of dyspnea (4) Hypertension: Status: Acute Qualifiers: Hypertension type: unspecified Qualified Code(s): I10 - Essential (primary) hypertension Category: Medical Code(s): I10 - Essential (primary) hypertension (5) History of pacemaker: Status: Acute Category: Medical Code(s): Z95.0 - Presence of cardiac pacemaker Plan 78-year-old obese female with PMHx of HTN, HLD, pacemaker in situ, DVT on xarelto, presented today for evaluation of dyspnea on exertion over the last 6 to 8 weeks. States she seen her primary care doctor and has had an echo chest x-ray stress test which was all unremarkable and she presents with worsening symptoms. initial evaluation presented, pale, c/o weakness. HB of 6.7 has acute kidney injury baseline creatinine is around 1.3 today it is 2.5. GFR is less than 30 unable to do a contrasted CT scan. low concern of bleeding occult blood negative. started 1 unit of blood transfusion. ED requested admission. Agreed. Plan as follow; -Symptomatic anemia: GABRIELA on CKD, likely prerenal Admit patient for continuous monitoring. Dispo MedSurg 1 unit PRBC ordered Monitor ultrasound fusion per protocol Repeat H&H when completed Anemia workup. Suspected that might be secondary to chronic kidney disease Monitor renal function Repeat the CMP monitor creatinine Encouraged for hydration, increase p.o. intake -Complaining of chronic dyspnea, likely worsening in the setting of acute anemia Last echocardiogram from June shoed Normal biventricular systolic function. Grade 2 diastolic dysfunction with Mild RV dilation. Mild RA dilation. Mild MR. Those could be also contributing factors Chest x-ray negative maximize O2 saturation. Oxygen via nasal cannula as needed Patient also has subjective component, due to her recent family lose after lung cancer Hypertension Pacemaker History of DVT Records are home medication, home Xarelto, nebivolol and isosorbide, spironolactone on statin Protonix for GI bleed prophylaxis and GERD Full code
[2023-07-23 20:19] LABS: Troponin I < 0.01 ng/ml (0.00-0.034)
[2023-07-23] MEDS: 0.9 % SODIUM CHLORIDE 250 ML 25 ML IV (20:30)
[2023-07-23 22:49] LABS: Troponin I < 0.01 ng/ml (0.00-0.034)
[2023-07-24 00:13] VITALS: BP 145/70; PULSE 83; RESP 18; TEMP 36.6; O2SAT 99
[2023-07-24 01:25] LABS: Hematocrit 25.2 % (37.0-47.0)
[2023-07-24 01:32] LABS: Hemoglobin 7.6 g/dL (12.2-16.2)
[2023-07-24 04:00] VITALS: BP 162/75; PULSE 68; PULSE 70; RESP 18; TEMP 36.6; O2SAT 99; BMI 39.0
--- NOTE | 2023-07-24 06:24 | PC.NURSE ---
pt. A&OX4, ambulates to and from bathroom with walker and assistance, pt. received 1 unit of blood this shift, tolerated well with no reaction noted, pt reports feeling better this morning, call button in reach.
[2023-07-24 07:17] LABS: Anion Gap 11.4 mEq/L (5-15); Blood Urea Nitrogen 46 mg/dl (7-17); Calcium 9.2 mg/dl (8.4-10.2); Carbon Dioxide 25 mmol/L (22.0-30.0); Chloride 108 mmol/L (98-107); Creatinine Clearance Estimated 42 mL/min (50-200); Estimated Glomerular Filt Rate 29 ml/min (>60); GFR (African American) 35 ML/MIN (>60); Glucose 104 mg/dl (74-100); Potassium 4.4 mmoL/L (3.5-5.1); Sodium 140 mmol/L (136-145)
[2023-07-24 07:41] VITALS: BP 124/51; PULSE 70; RESP 20; TEMP 36.5; O2SAT 97
[2023-07-24 08:00] VITALS: PULSE 70
[2023-07-24] MEDS: ISOSORBIDE MONO 60MG TAB.ER.24H 60 MG PO (08:41)
[2023-07-24] MEDS: PANTOPRAZOLE 40MG TABLET 40 MG PO (08:41)
[2023-07-24] MEDS: PRAVASTATIN 40MG TAB 80 MG PO (08:41)
[2023-07-24] MEDS: ASPIRIN EC 81MG TABLET 81 MG PO (08:41)
[2023-07-24] MEDS: LISINOPRIL 20MG TABLET 40 MG PO (08:41)
[2023-07-24 08:42] LABS: Basophils # 0.1 K/mm3 (0-0.2); Basophils % 0.9 % (0.1-2.0); Eosinophils # 0.2 K/mm3 (0.0-0.4); Eosinophils % 2.6 % (0.1-12.0); Hematocrit 26.8 % (37.0-47.0); Hemoglobin 7.9 g/dL (12.2-16.2); Lymphocytes # 2.3 K/mm3 (0.7-4.5); Lymphocytes % 34.3 % (10-50); Mean Corpuscular HGB Conc 29.4 g/dL (31.8-35.4); Mean Corpuscular Volume 78.4 fl (81-99); Mean Platelet Volume 10.3 fl (7.4-10.4); Monocytes # 0.6 K/mm3 (0.1-1.0); Monocytes % 8.6 % (1.7-9.3); Neutrophils # 3.6 K/mm3 (1.8-7.8); Neutrophils % 53.5 % (37.0-80.0); Platelet Count 333 K/mm3 (142-424); Red Blood Count 3.42 M/mm3 (4.20-5.40); Red Cell Distribution Width 19.2 % (11.5-17.5); White Blood Count 6.8 K/mm3 (4.8-10.8)
[2023-07-24] MEDS: CARVEDILOL 3.125MG TABLET 3.125 MG PO (08:42)
[2023-07-24 12:00] VITALS: PULSE 80
[2023-07-24 12:28] LABS: Iron 27 ug/dL (37-170)
[2023-07-24 12:38] LABS: Total Iron Binding Capacity 460 ug/dL (265-497)
[2023-07-24] MEDS: IRON SUCROSE COMPLEX 200 MG in 0.9 % SODIUM CHLORIDE 100 ML 220 MG IV (13:05)
--- NOTE | 2023-07-26 12:15 | CARE MANAGER ---
Contacted patient related to hospital discharge. She states she is doing so much better. She is taking her iron and has made her appointment with Dr. Mendoza. She denies questions or concerns at this time. ARRON Germain
--- NOTE | 2023-08-04 08:36 | EXP.DC.SUM ---
General Admission date:: 07/23/23 Discharge date: 07/24/23 HPI HPI HPI: This is a 78-year-old obese female with PMHx of HTN, HLD, pacemaker in situ, DVT on xarelto, presented today for evaluation of dyspnea on exertion over the last 6 to 8 weeks. States she seen her primary care doctor and has had an echo chest x-ray stress test which was all unremarkable and she presents with worsening symptoms. Primary care doctor told her to come here for a CT scan of her chest presumably to rule out a pulmonary embolism as she has a history of DVT and is on Xarelto. patient is worry about having lung cancer since symptoms mimic a recent family . She had no sudden onset of her symptoms. She is asymptomatic at rest but states she is very fatigued. She denies any melena hematochezia any significant pain anywhere etc. Has had a colonoscopy within the last 10 years which was unremarkable. Admitted for treatment and management. Hospital Course Hospital Course Hospital Course: 78-year-old obese female with PMHx of HTN, HLD, pacemaker in situ, DVT on xarelto, presented today for evaluation of dyspnea on exertion over the last 6 to 8 weeks. States she seen her primary care doctor and has had an echo chest x-ray stress test which was all unremarkable and she presents with worsening symptoms. initial evaluation presented, pale, c/o weakness. HB of 6.7 has acute kidney injury baseline creatinine is around 1.3 today it is 2.5. GFR is less than 30 unable to do a contrasted CT scan. low concern of bleeding occult blood negative. started 1 unit of blood transfusion. ED requested admission. Agreed. Plan as follow; -Symptomatic anemia: stable GABRIELA on CKD, likely prerenal - improved patient was admitted for GABRIELA which improved after fluid administration, patient was also noticed to have anemia likely iron deficiency anemia, iron was replaced and patient was started on iron supplements at discharge and recommended to f/u with PCP for possible colonoscopy as outpatient. On the date of discharge, the patient reported feeling stable. The patient was found not to be in any acute distress, and no new abnormalities on physical examination. Further, the patient expressed appropriate understanding of, and agreement with, the discharge recommendations, medications, and plan. Time spent 37 mins Exam Data for Last 24 hours Vital signs and Labs for Last 24 Hours: Temp Pulse Resp BP Pulse Ox O2 Del Method 97.7 F 80 20 124/51 L 97 Room Air 07/24/23 07:41 07/24/23 12:00 07/24/23 07:41 07/24/23 07:41 07/24/23 07:41 07/24/23 11:00 Constitutional Constitutional: no acute distress *Routine HEENT Exam Head: Present normocephalic Eye: Present EOMI and PERRL ENT: Present mucous membranes moist *Routine Neck Exam Neck: Present supple; Absent lymphadenopathy *Routine Respiratory Exam Respiratory: Present CTA bilaterally *Routine Cardiovascular Exam Cardiovascular: Present RRR *Routine Abdominal Exam Abdominal: Present soft and normoactive bowel sounds; Absent tenderness *Routine Extremities Exam Extremities: Absent cyanosis, clubbing or edema *Routine Skin Exam Skin: Present warm; Absent rash *Routine Neurological Exam Neurological: Present alert and oriented X3 DS: Diagnosis Discharge Diagnosis (1) Symptomatic anemia: Status: Acute Code(s): D64.9 - Anemia, unspecified (2) Acute kidney injury superimposed on CKD: Status: Acute Code(s): N17.9 - Acute kidney failure, unspecified; N18.9 - Chronic kidney disease, unspecified (3) Chronic dyspnea: Status: Acute Code(s): R06.09 - Other forms of dyspnea (4) Hypertension: Status: Acute Code(s): I10 - Essential (primary) hypertension Qualifiers: Hypertension type: unspecified Qualified Code(s): I10 - Essential (primary) hypertension (5) History of pacemaker: Status: Acute Code(s): Z95.0 - Presence of cardiac pacemaker Meds Home Medications and Allergies Home Medications Medication Instructions Recorded Confirmed Type alendronate 70 mg tablet 70 mg PO QWEEK Bone loss 12/23/17 07/27/23 History aspirin 81 mg tablet,delayed 81 mg PO DAILY heart health 12/23/17 07/27/23 History release (Adult Low Dose Aspirin) baclofen 10 mg tablet 10 mg PO TID muscle spasms 12/23/17 07/27/23 History calcium carbonate 500 mg-vitamin 1 tab PO BID suppliment 12/23/17 07/27/23 History D3 5 mcg (200 unit) tablet (Os-Brodie 500 + D3) furosemide 40 mg tablet 20 mg PO DAILY PRN diuretic 12/23/17 07/27/23 History isosorbide mononitrate 60 mg 60 mg PO DAILY Chest pain 12/23/17 07/27/23 History tablet,extended release 24 hr lisinopril 40 mg tablet 40 mg PO DAILY High blood pressure 12/23/17 07/27/23 History multivitamin,[id number] 1 tab PO DAILY SUPPLIMENT 12/23/17 07/27/23 History (Complete Multivitamin tablet) nebivolol 2.5 mg tablet (Bystolic) 2.5 mg PO DAILY Hypertension 12/23/17 07/27/23 History pantoprazole 40 mg tablet,delayed 40 mg PO BID GERD 12/23/17 07/27/23 History release pravastatin 80 mg tablet 80 mg PO DAILY Cholesterol 12/23/17 07/27/23 History spironolactone 25 mg tablet 12.5 mg PO DAILY fluid retention 12/23/17 07/27/23 History rivaroxaban 20 mg tablet 20 mg PO DAILY Blood thinner 09/02/21 07/27/23 History pregabalin 75 mg capsule 75 mg PO BID Pain #60 caps 06/17/23 07/27/23 Rx ferrous sulfate 325 mg (65 mg 325 mg PO BID 30 days #60 tabs 07/24/23 07/27/23 Rx iron) tablet New Prescriptions to Start Prescriptions: ferrous sulfate Theresa Crockett Allergies Allergy/AdvReac Type Severity Reaction Status Date / Time diltiazem [DILTIAZEM] Allergy Intermediate HEART Verified 07/27/23 13:42 RACING acetaminophen Allergy Verified 07/27/23 13:42 [From Theraflu Sinus and Cold] pheniramine Allergy Verified 07/27/23 13:42 [From Theraflu Sinus and Cold] phenylephrine Allergy Verified 07/27/23 13:42 [From Theraflu Sinus and Cold] Discharge Plan Disposition Patient Disposition: Home, Self-Care Condition: Good Follow up Plan Follow up with: Jose Mendoza MD [Primary Care Provider] - 1 week (please call for appointment) Prescriptions/Medication Reconciliation: New ferrous sulfate 325 mg (65 mg iron) tablet 325 mg PO BID 30 Days Qty: 60 0RF Continued Complete Multivitamin tablet 1 tab PO DAILY aspirin [Adult Low Dose Aspirin] 81 mg tablet,delayed release (DR/EC) 81 mg PO DAILY calcium carbonate-vitamin D3 [Os-Brodie 500 + D3] 500 mg(1,250mg) -200 unit tablet 1 tab PO BID baclofen 10 mg tablet 10 mg PO TID alendronate 70 mg tablet 70 mg PO QWEEK pantoprazole 40 mg tablet,delayed release (DR/EC) 40 mg PO BID furosemide 40 mg tablet 20 mg PO DAILY PRN (Reason: diuretic) isosorbide mononitrate 60 mg tablet extended release 24 hr 60 mg PO DAILY pravastatin 80 mg tablet 80 mg PO DAILY lisinopril 40 mg tablet 40 mg PO DAILY spironolactone 25 mg tablet 12.5 mg PO DAILY Bystolic 2.5 mg tablet 2.5 mg PO DAILY rivaroxaban 20 MG tablet 20 mg PO DAILY pregabalin 75 MG capsule 75 mg PO BID Qty: 60 1RF Problem Reconciliation Problems Reviewed?: Yes Patient Discharge Instructions ACTIVITY: Ambulate as tolerated DIET: continue same diet Patient Instructions: Anemia, Acute Kidney Injury Providers Primary Care Provider: Jose Mendoza Admit Provider: Theresa Crockett Attending Provider: Theresa Crockett
== END 2023-07-24 13:54 | disposition home or self-care (01) ==
LOC: ER 17:38 → 2ND 17:52
PROVIDERS: Admitting Provider Internal Medicine; Emergency Provider Student in an Organized Health Care Education/Training Program; PCP Internal Medicine Adolescent Medicine; Visit Provider Internal Medicine
DX: D50.9 Iron deficiency anemia, unspecified (principal); N17.9 Acute kidney failure, unspecified; N18.9 Chronic kidney disease, unspecified; R06.09 Other forms of dyspnea; I12.9 Hypertensive chronic kidney disease with stage 1 through stage 4 chronic kidney disease, or unspecified chronic kidney disease; Z95.0 Presence of cardiac pacemaker; Z79.01 Long term (current) use of anticoagulants; Z79.899 Other long term (current) drug therapy; I82.551 Chronic embolism and thrombosis of right peroneal vein
CPT/HCPCS: 36415; 36430; 71045; 80048; 80053; 82272; 83540; 83550; 84484; 85014; 85018; 85025; 86850; 93005; 99291; G0328; G0378; J1756; P9016

== ENCOUNTER 2023-07-27 13:05 | Outpatient (CLI) | payer MEDICARE, SELFPAY ==
--- NOTE | 2023-07-27 13:19 | XR_ITS ---
FINAL REPORT CLINICAL HISTORY: right shoulder pain COMPARISON: Rick 04/08/2021 FINDINGS: RIGHT SHOULDER Two views demonstrate no acute fracture or dislocation. There is mild degenerative change. The visualized bony structures are well aligned. No soft tissue abnormality is seen. IMPRESSION: Mild degenerative change without acute process. Reviewed, Interpreted and Dictated by Lele Rinaldi III, MD Transcribed by Rnoda De Authenticated and . [facility]
== END 2023-07-27 23:59 | disposition home or self-care (01) ==
LOC: RAD 13:06
PROVIDERS: PCP Internal Medicine Adolescent Medicine; Visit Provider Physician Assistant Surgical
DX: M25.511 Pain in right shoulder (principal)
CPT/HCPCS: 73030

== ENCOUNTER 2023-08-17 10:03 | Day surgery (SDC) | payer MEDICARE, SELFPAY ==
[2023-08-17 10:20] VITALS: BP 147/71; PULSE 85; RESP 18; TEMP 36.6; O2SAT 95; BMI 37.2
[2023-08-17] MEDS: methylPREDNISolone ACETATE 80MG/ML VIAL 80 MG (10:26)
[2023-08-17] MEDS: LIDOCAINE 1% 5ML PF VIAL 5 ML (10:27)
[2023-08-17] MEDS: BUPIVACAINE 0.25% 10ML INJ 25 MG IJ (10:27)
--- NOTE | 2023-08-17 10:30 | P.PCN_ITS ---
Procedure Date: 08/17/23 Time: 10:15 Anesthesiologist:: Cody Ford CRNA Complications:: None Pre-procedure Diagnosis:: DJD right shoulder. Chronic right shoulder pain. Post-procedure Diagnosis:: Same. Indications for Procedure:: Patient is a pleasant 78-year-old female comes to our clinic today for right suprascapular block. Patient reports right shoulder pain is constant, dull, aching. She rates her pain 9/10. Patient has 5/5 strength in the right arm. However, very limited range of motion secondary to pain. Patient has tried and failed intra-articular cortisone injections of the right shoulder. Patient reports the first couple of injections she received were significant in terms of relief. However, over the last 12 months any intra-articular injection has not been effective. Procedure Details:: Details of the procedure explained the patient. The patient taken to procedure room placed in sitting position. The area over the right shoulder and scapula was cleansed using chlorhexidine as a cleansing solution. Using a 25-gauge inch and half needle the right superior lateral border of the scapula was accessed with ease. In a fanning fashion and intermittent aspiration 10 mL of the solution containing 0.25% Marcaine 4 mL and 1% lidocaine 4 mL and 40 mg of Depo- Medrol was injected. Patient tolerated procedure without difficulty. No complications. Plan and Disposition:: Patient was reevaluated 10 minutes post procedure. Range of motion in the right arm is significantly improved with minimal to no pain. Patient was discharged without incident.
[2023-08-17 10:34] VITALS: BP 136/67; PULSE 61; RESP 18; O2SAT 96
== END 2023-08-17 10:34 | disposition home or self-care (01) ==
PROVIDERS: PCP Internal Medicine Adolescent Medicine; Visit Provider Nurse Anesthetist, Certified Registered
DX: M25.511 Pain in right shoulder (principal); G89.29 Other chronic pain
CPT/HCPCS: 64418; J1010

== ENCOUNTER 2023-09-09 12:46 | Outpatient (POV) | payer MEDICARE, SELFPAY ==
[2023-09-09 13:13] VITALS: BP 100/62; PULSE 75; RESP 18; O2SAT 97; BMI 38.0
--- NOTE | 2023-09-09 14:07 | A.OFFVIS_ITS ---
[facility] Disclaimer: The information contained in this section may have been updated after the patient was seen, as this information can be updated by other users. Medical History History of pacemaker Hypertension Hyperlipidemia Surgical History History of hip surgery History of shoulder surgery History of hysterectomy Family History Other No significant family history Social History Smoking Status: Never smoker alcohol intake: never substance use type: denies use current occupational status: retired Travel in the last 8 weeks: None household members: spouse housing: house current occupational exposures/hazards: No caffeine: Yes PM Subjective & Objective Subjective Subjective:: Patient is a pleasant 78-year-old female who presents today for follow-up of right suprascapular nerve block on 08/17/2023. Today she rates her pain a 2 out of 10 in that shoulder and states that she had at least 80% improvement and it is still not helping. Today however she does state that she has pain about a 5 out of 10 in her left hip and left shoulder patient denies any new injury or trauma. Patient does state that the hip is giving her much more fits than the shoulder at this point. Patient did previously have a left transforaminal epidural steroid injection back last year that did provide upwards of 80% relief lasting several months. Patient does state that she feels like it is the same pain that goes down into the left extremity. Patient states it is interfering with her ability perform activities of daily living such as cooking and cleaning. She does state that she is interested in repeating this injection due to how much improved function she had with it. Patient is currently prescribed pregabalin 75 mg twice a day from our office. She denies any side effects from this medication. Her Yuri has been reviewed and is appropriate. Review of Systems: General: No recent weight changes, no fever, no sleep disturbances Respiratory: No cough, no shortness of air, no recurring pulmonary infections Cardiovascular/peripheral vascular: No chest pain, no palpitations, no edema, no shortness of breath Gastrointestinal: No new onset incontinence, normal bowel movements reported Genitourinary: No new onset incontinence Musculoskeletal: Low back pain, left hip pain, left leg pain Psychiatric: [Normal mood/affect] Neurological: [Denies weakness in extremities], [denies balance issues] Pain at rest (0-10 scale): 5 Objective Objective:: Physical Exam: General: Alert and oriented x3, no acute distress, pleasant and cooperative Lungs: Respirations even and unlabored, symmetrical chest expansion Eyes: PERRL Musculoskeletal: Flexion and extension of lumbar [spine] somewhat guarded secondary to pain, [antalgic gait noted] positive left leg raise with decreased sensation to light touch and decreased reflexes Neurological: Speech clear, no gross sensory deficit Has patient had previous pain injection?: Yes Percent improvement in pain since last injection: 80% Conservative treatment options previously tried: Home exercise plan Length of treatment: Longer than 6 weeks and Prescription medications Length of treatment: Longer than 6 weeks Meds Home Medications and Allergies Home Medications Medication Instructions Recorded Confirmed Type alendronate 70 mg tablet 70 mg PO QWEEK Bone loss 12/23/17 09/09/23 History aspirin 81 mg tablet,delayed 81 mg PO DAILY heart health 12/23/17 09/09/23 History release (Adult Low Dose Aspirin) baclofen 10 mg tablet 10 mg PO TID muscle spasms 12/23/17 09/09/23 History calcium carbonate 500 mg-vitamin 1 tab PO BID suppliment 12/23/17 09/09/23 History D3 5 mcg (200 unit) tablet (Os-Brodie 500 + D3) furosemide 40 mg tablet 20 mg PO DAILY PRN diuretic 12/23/17 09/09/23 History isosorbide mononitrate 60 mg 60 mg PO DAILY Chest pain 12/23/17 09/09/23 History tablet,extended release 24 hr lisinopril 40 mg tablet 40 mg PO DAILY High blood pressure 12/23/17 09/09/23 History multivitamin,gj-bwax-wwperbps 1 tab PO DAILY SUPPLIMENT 12/23/17 09/09/23 His tory (Complete Multivitamin tablet) nebivolol 2.5 mg tablet (Bystolic) 2.5 mg PO DAILY Hypertension 12/23/17 09/09/23 History pantoprazole 40 mg tablet,delayed 40 mg PO BID GERD 12/23/17 09/09/23 History release pravastatin 80 mg tablet 80 mg PO DAILY Cholesterol 12/23/17 09/09/23 History spironolactone 25 mg tablet 12.5 mg PO DAILY fluid retention 12/23/17 09/09/23 History rivaroxaban 20 mg tablet 20 mg PO DAILY Blood thinner 09/02/21 09/09/23 History pregabalin 75 mg capsule 75 mg PO BID Pain #60 caps 06/17/23 09/09/23 Rx ferrous sulfate 325 mg (65 mg 325 mg PO BID 30 days #60 tabs 07/24/23 09/09/23 Rx iron) tablet New Prescriptions to Start Prescriptions: Allergies Allergy/AdvReac Type Severity Reaction Status Date / Time diltiazem [DILTIAZEM] Allergy Intermediate HEART Verified 08/17/23 10:29 RACING acetaminophen Allergy Verified 08/17/23 10:29 [From Theraflu Sinus and Cold] pheniramine Allergy Verified 08/17/23 10:29 [From Theraflu Sinus and Cold] phenylephrine Allergy Verified 08/17/23 10:29 [From Theraflu Sinus and Cold] Assessment and Plan *Assessment and plan (1) Degenerative disc disease, lumbar: Status: Acute Category: Medical Code(s): M51.36 - Other intervertebral disc degeneration, lumbar region (2) Lumbar radiculopathy: Status: Acute Category: Medical Code(s): M54.16 - Radiculopathy, lumbar region (3) Left leg pain: Status: Acute Category: Medical Code(s): M79.605 - Pain in left leg Plan Patient is experiencing worsening pain throughout her low back with radiating symptoms of numbness and tingling down her left hip and left extremity. Patient did previously have a left transforaminal epidural back in April 2022 that provided 80% improvement longer than 3 months. I have discussed with patient that she may benefit from a repeat transforaminal injection. Risk and benefits were discussed with the patient and she would like to proceed forward with this plan of care. Patient is currently on blood thinner and we will reach out to confirm she can stop this medication prior to this injection patient is agreeable to this. Patient has tried and failed conservative treatment including continued at home stretching exercise between injections for longer than 6 weeks. We will schedule the patient for a left transforaminal epidural steroid injection L4-L5 and L5-S1 under fluoroscopy. I will also refill the patient's pregabalin and provide a 3-month supply of this medication. Patient has been instructed to contact the clinic with any concerns before the next appointment. Dr. Sorensen has reviewed this note and agrees with this plan of care. This note was dictated using voice recognition software and make contain errors or omissions.
== END 2023-09-09 23:59 | disposition home or self-care (01) ==
PROVIDERS: PCP Internal Medicine Adolescent Medicine; Visit Provider Nurse Practitioner Family
DX: M51.36 Other intervertebral disc degeneration, lumbar region (principal); M54.16 Radiculopathy, lumbar region; M79.605 Pain in left leg
CPT/HCPCS: 99212; G0463

== ENCOUNTER 2023-09-21 11:53 | Day surgery (SDC) | payer MEDICARE, SELFPAY ==
[2023-09-21 12:08] VITALS: BP 106/60; PULSE 77; RESP 16; TEMP 36.3; O2SAT 97; BMI 38.9
--- NOTE | 2023-09-21 12:08 | EXP.PAIN.PRO ---
Procedure Date: 09/21/23 Time: 12:00 Anesthesiologist:: Cody Ford CRNA Complications:: None Pre-procedure Diagnosis:: Degenerative disc lumbar spine multilevels. Lumbar radiculopathy. Post-procedure Diagnosis:: Same. Indications for Procedure:: Patient is a very pleasant 78-year-old female comes to clinic today for a left L4-5, L5-S1 transforaminal epidural steroid injection. Patient describes low back pain as constant, dull, aching. Her main complaint is left leg radiculopathy to the knee. She rates her pain 8/10. Procedure Details:: Details of the procedure explained to the patient. The patient was taken to procedure room placed in the prone position. The area over the lumbar spine was cleansed using chlorhexidine as a cleansing solution. Using fluoroscopy guidance markers were placed over the left border of the L4-5 and L5-S1 vertebral body. At each marker the skin and subcutaneous tissue was anesthetized using 1% lidocaine and a 25-gauge needle. At this time using fluoroscopy guidance 3 and half inch 22-gauge spinal needle was used to access the upper one third of the left L4-5 and L5-S1 foramen. Using fluoroscopy guidance in the lateral position needle position was confirmed using 0.5 mL of contrast dye. Good spread was noted in the epidural space at each level. After negative aspiration 2 mL of 1% lidocaine and 40 mg of Depo-Medrol was injected at each level. Patient tolerated procedure without difficulty. There are no complications. Plan and Disposition:: Patient was discharged without incident.
[2023-09-21 12:22] VITALS: BP 126/69; PULSE 81; RESP 18; O2SAT 97
[2023-09-21] MEDS: LIDOCAINE 1% 5ML PF VIAL 5 ML (12:22)
[2023-09-21 12:23] VITALS: BP 126/69; PULSE 81; RESP 18; O2SAT 97
[2023-09-21 12:27] VITALS: BP 132/58; PULSE 81; RESP 18; O2SAT 97
== END 2023-09-21 12:28 | disposition home or self-care (01) ==
PROVIDERS: PCP Internal Medicine Adolescent Medicine; Visit Provider Nurse Anesthetist, Certified Registered
DX: M54.16 Radiculopathy, lumbar region (principal); M51.36 Other intervertebral disc degeneration, lumbar region
CPT/HCPCS: 64483; 64484; J1010

== ENCOUNTER 2023-10-08 07:48 | Outpatient (CLI) | payer MEDICARE, SELFPAY ==
--- NOTE | 2023-10-08 08:30 | PC.NURSE ---
Pt here for PFT unable to complete. Pt states she is to SOB, however, Pt did have trouble following directions. Several attempts was made and fair effort given by Pt but the maneuvers to exhale could not be followed. Pt began breathing very fast in and out was unable to prolong exhaling. Informed Dr. Rosales office spoke to Adam.
== END 2023-10-08 23:59 | disposition home or self-care (01) ==
PROVIDERS: PCP Internal Medicine Adolescent Medicine; Visit Provider Internal Medicine Adolescent Medicine
DX: R06.02 Shortness of breath (principal)

== ENCOUNTER 2023-11-09 09:02 | Outpatient (CLI) | payer MEDICARE, SELFPAY ==
--- NOTE | 2023-11-09 09:05 | CT_ITS ---
FINAL REPORT TECHNIQUE: Axial images were obtained from the lung apex to the mid abdomen by computed tomography. Coronal reformatted images were obtained. This study was performed with techniques to keep radiation doses as low as reasonably achievable, (ALARA). Individualized dose reduction techniques using automated exposure control or adjustment of mA and/or kV according to the patient''s size were employed. CLINICAL HISTORY: Shortness of breath COMPARISON: None FINDINGS: There is motion artifact decreasing sensitivity of this exam. There is streak artifact from left upper anterior chest wall pacer. Calcified bilateral hilar lymph nodes are present. The lungs are clear. The heart size is normal. There is no pericardial or pleural effusion. Limited images of the upper abdomen demonstrate gallstones in the dependent portion of the gallbladder. There is a lobular nodule in the right adrenal gland measuring up to 2.2 cm with mean attenuation value of 14 Hounsfield units, indeterminate. There may be subtle calcification associated with this mass. No suspicious infiltrate or nodule identified. Atelectasis is noted at the lung bases. IMPRESSION: Scarring at the lung bases. Gallstones in the gallbladder. Indeterminate right adrenal mass. Adrenal mass protocol CT would be necessary for full characterization. Reviewed, Interpreted and Dictated by Efrain Hylton MD Transcribed by Ronda De Authenticated and [facility]
== END 2023-11-09 23:59 | disposition home or self-care (01) ==
LOC: RAD 09:02
PROVIDERS: PCP Internal Medicine Adolescent Medicine; Visit Provider Nurse Practitioner Family
DX: R06.02 Shortness of breath (principal)
CPT/HCPCS: 71250

== ENCOUNTER 2023-11-22 08:40 | Outpatient (POV) | payer MEDICARE, SELFPAY ==
[2023-11-22 08:58] VITALS: BP 162/84; PULSE 72; RESP 16; O2SAT 100; BMI 39.8
--- NOTE | 2023-11-22 09:13 | EXP.PAIN.SOA ---
[facility] Disclaimer: The information contained in this section may have been updated after the patient was seen, as this information can be updated by other users. Medical History History of pacemaker Hypertension Hyperlipidemia Surgical History History of hip surgery History of shoulder surgery History of hysterectomy Family History Other No significant family history Social History Smoking Status: Never smoker alcohol intake: never substance use type: denies use current occupational status: other Travel in the last 8 weeks: None household members: spouse housing: house current occupational exposures/hazards: No caffeine: Yes PM Subjective & Objective Subjective Subjective:: Patient is a pleasant 78-year-old female who presents today for worsening pain. Today she rates her pain an 8 out of 10. Patient denies any new trauma or injury. She does state that she is just been experience a lot of pain all over. Patient states she has been having gallbladder attacks and that she is scheduled to see Dr. Adams in in the morning for evaluation for possible surgical intervention. Patient does states she has also been having more swelling in her lower extremities and a lot of worsening pain in her left shoulder and arm as well as her left knee. Patient does state that overall the left knee is worse and that it does affect her ability perform activities of daily living such as cooking and cleaning. Patient states anytime she is up walking it causes significant disability. Patient has not had any total knee replacement on this joint. Patient is currently prescribed pregabalin 75 mg twice a day along with compounded cream. She is requesting refills on both. Her Yuri has been reviewed and is appropriate. Review of Systems: General: No recent weight changes, no fever, no sleep disturbances Respiratory: No cough, no shortness of air, no recurring pulmonary infections Cardiovascular/peripheral vascular: No chest pain, no palpitations, no edema, no shortness of breath Gastrointestinal: No new onset incontinence, normal bowel movements reported Genitourinary: No new onset incontinence Musculoskeletal: Left shoulder, left knee pain Psychiatric: [Normal mood/affect] Neurological: [Denies weakness in extremities], [denies balance issues] Pain at rest (0-10 scale): 8 Objective Objective:: Physical Exam: General: Alert and oriented x3, no acute distress, pleasant and cooperative Lungs: Respirations even and unlabored, symmetrical chest expansion Eyes: PERRL Musculoskeletal: Flexion and extension of left knee somewhat guarded secondary to pain, [antalgic gait noted] Neurological: Speech clear, no gross sensory deficit Has patient had previous pain injection?: No Conservative treatment options previously tried: Home exercise plan Length of treatment: Longer than 12 weeks Meds Home Medications and Allergies Home Medications ?Medication ?Instructions ?Recorded ?Confirmed ?Type alendronate 70 mg tablet 70 mg PO QWEEK Bone loss 12/23/17 11/22/23 History aspirin 81 mg tablet,delayed 81 mg PO DAILY heart health 12/23/17 11/22/23 History release (Adult Low Dose Aspirin) baclofen 10 mg tablet 10 mg PO TID muscle spasms 12/23/17 11/22/23 History calcium carbonate 500 mg-vitamin 1 tab PO BID suppliment 12/23/17 11/22/23 History D3 5 mcg (200 unit) tablet (Os-Brodie 500 + D3) furosemide 40 mg tablet 20 mg PO DAILY PRN diuretic 12/23/17 11/22/23 History isosorbide mononitrate 60 mg 60 mg PO DAILY Chest pain 12/23/17 11/22/23 History tablet,extended release 24 hr lisinopril 40 mg tablet 40 mg PO DAILY High blood pressure 12/23/17 11/22/23 History multivitamin,ys-oxiu-ghbtzfur 1 tab PO DAILY SUPPLIMENT 12/23/17 11/22/23 History (Complete Multivitamin tablet) nebivolol 2.5 mg tablet (Bystolic) 2.5 mg PO DAILY Hypertension 12/23/17 11/22/23 History pantoprazole 40 mg tablet,delayed 40 mg PO BID GERD 12/23/17 11/22/23 History release pravastatin 80 mg tablet 80 mg PO DAILY Cholesterol 12/23/17 11/22/23 History spironolactone 25 mg tablet 12.5 mg PO DAILY fluid retention 12/23/17 11/22/23 History rivaroxaban 20 mg tablet 20 mg PO DAILY Blood thinner 09/02/21 11/22/23 History ferrous sulfate 325 mg (65 mg 325 mg PO BID 30 days #60 tabs 07/24/23 11/22/23 Rx iron) tablet pregabalin 75 mg capsule 75 mg PO BID Pain #60 caps 09/09/23 11/22/23 Rx clindamycin HCl 300 mg capsule 300 mg PO DIRECTED 10/19/23 11/22/23 History hydrocodone 7.5 mg-acetaminophen 1 tab PO DIRECTED 10/19/23 11/22/23 History 325 mg tablet New Prescriptions to Start Prescriptions: Allergies Allergy/AdvReac Type Severity Reaction Status Date / Time diltiazem [DILTIAZEM] Allergy Intermediate HEART Verified 10/19/23 13:21 RACING acetaminophen Allergy Verified 10/19/23 13:21 [From Theraflu Sinus and Cold] pheniramine Allergy Verified 10/19/23 13:21 [From Theraflu Sinus and Cold] phenylephrine Allergy Verified 10/19/23 13:21 [From Theraflu Sinus and Cold] Assessment and Plan *Assessment and plan (1) Left knee pain: Status: Acute Category: Medical Code(s): M25.562 - Pain in left knee (2) Left shoulder pain: Status: Acute Category: Medical Code(s): M25.512 - Pain in left shoulder Plan Patient is still experiencing chronic pain in her left knee with limited range of motion. Patient was counseled that she may benefit from a intra-articular knee injection. Risk and benefits were discussed with patient and she would like to proceed forward with this plan of care. I did also securities counselor the patient that I will make sure she has refills on her compounded cream and will send in 3-month supply of pregabalin. Patient will be scheduled for a right knee intra-articular injection. Patient has tried and failed conservative treatment including continued at home stretching exercise for longer than 12 weeks. Patient has been instructed to contact the clinic with any concerns before the next appointment. Dr. Sorensen has reviewed this note and agrees with this plan of care. This note was dictated using voice recognition software and make contain errors or omissions. All injections are used with Lidocaine or Bupivacaine and Depo Medrol.
== END 2023-11-22 23:59 | disposition home or self-care (01) ==
PROVIDERS: PCP Internal Medicine Adolescent Medicine; Visit Provider Nurse Practitioner Family
DX: M25.562 Pain in left knee (principal); M25.512 Pain in left shoulder; Z73.89 Other problems related to life management difficulty
CPT/HCPCS: 99212; G0463

== ENCOUNTER 2023-11-26 08:24 | Outpatient (CLI) | payer MEDICARE, SELFPAY ==
--- NOTE | 2023-11-26 08:25 | US_ITS ---
FINAL REPORT CLINICAL HISTORY: Right upper quad pain FINDINGS: RIGHT UPPER QUADRANT ULTRASOUND Sonographic images of the right upper quadrant were obtained. The pancreas is partially obscured.The liver has an unremarkable appearance. There are multiple small echogenic foci in the dependent portion of the gallbladder consistent with gallstones. The common duct measures 5 mm. There is no intra or extrahepatic biliary ductal dilatation. Limited images of the right kidney are normal. IMPRESSION: Cholelithiasis. Reviewed, Interpreted and Dictated by Efrain Hylton MD Transcribed by Tasneem De Jesus Authenticated and [facility]
== END 2023-11-26 23:59 | disposition home or self-care (01) ==
LOC: RAD 08:25
PROVIDERS: PCP Internal Medicine Adolescent Medicine; Visit Provider Surgery
DX: R10.11 Right upper quadrant pain (principal)
CPT/HCPCS: 76705

== ENCOUNTER 2023-12-03 09:29 | Outpatient (CLI) | payer MEDICARE, SELFPAY ==
--- NOTE | 2023-12-03 09:34 | CT_ITS ---
FINAL REPORT TECHNIQUE: Axial CT images of the abdomen and pelvis were obtained before and after the administration of IV contrast. Oral contrast was administered.This study was performed with techniques to keep radiation doses as low as reasonably achievable (ALARA). Individualized dose reduction techniques using automated exposure control or adjustment of mA and/or kV according to the patient''s size were employed. CLINICAL HISTORY: Right adrenal mass, follow-up COMPARISON: Chest CT dated 11/09/2023 FINDINGS: Abdomen: The lung bases are clear. The heart is normal in size. The liver has an unremarkable appearance, without evidence of mass or biliary duct dilatation. Small gallstones are seen in the gallbladder.. The spleen is unremarkable. There is a 21 mm right adrenal mass with a mean attenuation value of 6 Hounsfield units on the precontrast imaging and show 69% contrast washout at 15 minutes. Findings are consistent with an adenoma. Small left adrenal nodules measuring up to 9 mm are also likely adenomas. The pancreas has an unremarkable appearance. There is severe left renal cortical thinning and atrophy. A small left renal cyst is noted. The right kidney is unremarkable. Diffuse vascular calcifications are noted. The aorta is normal in caliber. There is no free fluid or adenopathy. No mass or abnormal fluid collection is seen. Precontrast images demonstrate no evidence of nephrolithiasis. Pelvis: The appendix is not well visualized. The urinary bladder is unremarkable. The patient is status post hysterectomy. There is no evidence of mass or adenopathy. There is no evidence of bowel obstruction. There is sigmoid diverticulosis. IMPRESSION: Right adrenal nodule is consistent with an adenoma. Small left adrenal nodules are also likely adenomas. Cholelithiasis. Reviewed, Interpreted and Dictated by Lele Rinaldi III, MD Transcribed by Dawn Bocanegra Authenticated and [facility]
[2023-12-03] MEDS: SODIUM CHLORIDE 0.9% 10ML SYR (RAD ONLY) 10 ML IV (10:20)
[2023-12-03] MEDS: IOPAMIDOL-370 (76%);100ML BOTTLE 75 ML IV (10:20)
== END 2023-12-03 23:59 | disposition home or self-care (01) ==
LOC: RAD 09:31
PROVIDERS: PCP Internal Medicine Adolescent Medicine; Visit Provider Nurse Practitioner Family
DX: E27.8 Other specified disorders of adrenal gland (principal)
CPT/HCPCS: 74178; Q9967

== ENCOUNTER 2023-12-09 08:16 | Outpatient (CLI) | payer MEDICARE, SELFPAY | END 2023-12-09 23:59 | disposition home or self-care (01) | LOC: LAB 08:23 | PROVIDERS: PCP Internal Medicine Adolescent Medicine; Visit Provider Internal Medicine Adolescent Medicine | DX: R53.83 Other fatigue (principal) | CPT/HCPCS: 82533 ==

== ENCOUNTER 2023-12-31 10:10 | Emergency (ER) | payer MEDICARE, SELFPAY ==
[2023-12-31] VITALS (8 sets, daily range): BP systolic 119–162; BP diastolic 61–79; PULSE 60–84; RESP 14–26; TEMP 36.4–36.7; O2SAT 94–98; BMI 36.0
--- NOTE | 2023-12-31 10:27 | ECG_ITS ---
APPROVED REPORT Exam: Resting ECG HR:62 bpm ECG Measurements Heart Rate 62 AXES VA 167 P 70 QRSd 79 QRS 52 QT 417 T 50 QTc 422 Conclusion SINUS RHYTHM LOW QRS VOLTAGE IN PRECORDIAL LEADS [QRS DEFLECTION < 1.0 mV IN CHEST LEADS] BORDERLINE ECG Electronically signed by : OVI MENARD, 12/31/2023 16:44:11
--- NOTE | 2023-12-31 10:32 | PC.NURSE ---
DR MENARD AT BEDSIDE
--- NOTE | 2023-12-31 10:35 | XR_ITS ---
PROCEDURE INFORMATION: Exam: XR Chest Exam date and time: 12/31/2023 10:46 AM Age: 78 years old Clinical indication: Cough and shortness of breath; Additional info: SOA, cough TECHNIQUE: Imaging protocol: Radiologic exam of the chest. Views: 1 view. COMPARISON: No relevant prior studies available. FINDINGS: Tubes, catheters and devices: A pulse generator device is present with leads in appropriate position. Lungs: There is poor ventilation of the lungs, with perihilar vascular crowding and a diffuse increase in pulmonary parenchymal density. Streaky opacities in lower lobes can represent atelectasis and/or developing pneumonia. Pleural spaces: Unremarkable. No pleural effusion. No pneumothorax. Heart/Mediastinum: Unremarkable. No cardiomegaly. Bones/joints: Unremarkable. IMPRESSION: Streaky opacities in lower lobes can represent atelectasis and/or developing pneumonia.
--- NOTE | 2023-12-31 10:37 | PC.NURSE ---
respiratory notified of VBG and blood in lab
[2023-12-31 10:42] LABS: VBG Base Excess -2.3 mmol/L (-2.4-2.3); VBG HCO3 22.7 mmol/L (23-30); VBG Oxygen Saturation 91.1 % (50-70); VBG PCO2 38.4 mmol/L (35-51); VBG PH 7.39 mmol/L (7.31-7.41); VBG PO2 65.2 mmol/L (28-40); VBG Total CO2 23.8 mmol/L (23-27)
[2023-12-31 10:42] LABS: Coronavirus 19, PCR Not Detected (NotDetected); Influenza A, PCR Not Detected (NotDetected); Influenza B, PCR Not Detected (NotDetected)
[2023-12-31 10:42] LABS: Basophils % 0.6 % (0.1-2.0); Eosinophils # 0.3 K/mm3 (0.0-0.4); Eosinophils % 4.5 % (0.1-12.0); Hematocrit 31.6 % (37.0-47.0); Hemoglobin 9.7 g/dL (12.2-16.2); Lymphocytes # 1.7 K/mm3 (0.7-4.5); Mean Corpuscular HGB Conc 30.8 g/dL (31.8-35.4); Mean Corpuscular Hemoglobin 28.8 pg (27.0-31.2); Mean Corpuscular Volume 93.6 fl (81-99); Mean Platelet Volume 9.1 fl (7.4-10.4); Monocytes # 0.6 K/mm3 (0.1-1.0); Monocytes % 9.7 % (1.7-9.3); Neutrophils # 3.2 K/mm3 (1.8-7.8); Neutrophils % 56.2 % (37.0-80.0); Platelet Count 251 K/mm3 (142-424); Red Blood Count 3.37 M/mm3 (4.20-5.40); Red Cell Distribution Width 14.9 % (11.5-17.5); White Blood Count 5.7 K/mm3 (4.8-10.8)
[2023-12-31 10:44] LABS: Lactate Venous 2.2 mmol/L (0.4-2.0)
[2023-12-31 10:46] LABS: Magnesium 1.8 mg/dl (1.6-2.3)
[2023-12-31 10:47] LABS: Alanine Aminotransferase 20 U/L (12-78); Albumin Level 3.7 g/dl (3.5-5.0); Albumin/Globulin Ratio 1.4 (1.1-1.8); Alkaline Phosphatase 55 U/L (38-126); Anion Gap 12.2 mEq/L (5-15); Aspartate Amino Transferase 49 U/L (14-36); Bilirubin,Total 0.7 mg/dl (0.2-1.3); Blood Urea Nitrogen 13 mg/dl (7-17); Calcium 8.8 mg/dl (8.4-10.2); Carbon Dioxide 25 mmol/L (22.0-30.0); Chloride 108 mmol/L (98-107); Creatinine Clearance Estimated 67 mL/min (50-200); Estimated Glomerular Filt Rate 53 ml/min (>60); GFR (African American) 65 ML/MIN (>60); Globulin 2.7 g/dL (1.3-3.2); Glucose 89 mg/dl (74-100); Potassium 4.2 mmoL/L (3.5-5.1); Sodium 141 mmol/L (136-145); Total Protein,Serum 6.4 g/dl (6.3-8.2)
--- NOTE | 2023-12-31 10:51 | PC.NURSE ---
rad is in room.
[2023-12-31 10:53] LABS: C-Reactive Protein 20.3 mg/L (0-4)
[2023-12-31 11:03] LABS: NT Pro Brain Natriuretic Pep. 1240 pg/mL (0-450)
[2023-12-31 11:04] LABS: Troponin I < 0.01 ng/ml (0.00-0.034)
[2023-12-31 11:07] LABS: T4 (Thyroxine) 8.9 ug/dl (5.53-11.0)
[2023-12-31 11:19] LABS: D-Dimer 1.08 ug/mL (0.0-0.5)
[2023-12-31 11:21] LABS: Thyroid Stimulating Hormone 0.74 uIU/mL (0.465-4.68)
--- NOTE | 2023-12-31 11:21 | [facility].EDCP ---
Discharge Plan Disposition Patient Disposition: Home, Self-Care Condition: Good Prescriptions Prescriptions: New furosemide [Lasix] 40 mg tablet 40 mg PO DAILY Qty: 7 0RF azithromycin 500 mg tablet 500 mg PO DAILY 4 Days Qty: 4 0RF Rx Instructions: You were given first dose today, 12/31/2023, so please start tomorrow, 01/01/2024. cefdinir 300 mg capsule 300 mg PO BID 7 Days Qty: 14 0RF No Action Complete Multivitamin tablet 1 tab PO DAILY aspirin [Adult Low Dose Aspirin] 81 mg tablet,delayed release (DR/EC) 81 mg PO DAILY calcium carbonate-vitamin D3 [Os-Brodie 500 + D3] 500 mg(1,250mg) -200 unit tablet 1 tab PO BID baclofen 10 mg tablet 10 mg PO TID alendronate 70 mg tablet 70 mg PO QWEEK pantoprazole 40 mg tablet,delayed release (DR/EC) 40 mg PO BID furosemide 40 mg tablet 20 mg PO DAILY PRN (Reason: diuretic) isosorbide mononitrate 60 mg tablet extended release 24 hr 60 mg PO DAILY pravastatin 80 mg tablet 80 mg PO DAILY lisinopril 40 mg tablet 40 mg PO DAILY spironolactone 25 mg tablet 12.5 mg PO DAILY Bystolic 2.5 mg tablet 2.5 mg PO DAILY hydrocodone-acetaminophen 7.5-325 mg tablet 1 tab PO DIRECTED Patient Comments: TAKE ONE TABLET BY MOUTH EVERY 6 HOURS MAY CAUSE DROWSINESS nebivolol 10 mg tablet 10 mg PO bumetanide 1 mg tablet 1 mg PO rivaroxaban 20 MG tablet 20 mg PO DAILY ferrous sulfate 325 mg (65 mg iron) tablet 325 mg PO BID 30 Days Qty: 60 0RF pregabalin 75 MG capsule 75 mg PO BID Qty: 60 2RF Referrals Follow up/Referrals: Jose Mendoza MD [Primary Care Provider] - See instructions Activity Restrictions/Add. Instructions Additional Instructions/Restrictions: You were evaluated in the emergency department today. At this time, we feel you have an upper respiratory infection as well as an exacerbation of heart failure. Please brick picker your prescriptions at the pharmacy and take them as prescribed. 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 Return to the emergency department right away for new or worsening symptoms. Clinical Impressions Clinical Impression: URI (upper respiratory infection), Acute exacerbation of CHF (congestive heart failure) Instructions Patient Instructions: DI for Heart Failure, DI for Acute Bronchitis Print Language Print Language: British Discharge ED Provider: Staci Muller HPI General Chief Complaint: Shortness of Breath/Dyspnea Stated Complaint: SOB Time Seen by Provider: 12/31/23 10:28 Mode of Arrival: Wheelchair Source of Information: Patient Limitations: No Limitations Description of Symptoms (Recalled from ER Triage Doc. by RN): Complaint of increased shortness of breath over the past couple of days. Also complaint of increased fluid build up and cough. History of Present Illness HPI narrative: This patient is an 78-year-old female with a history of anemia, gallstones, hypertension, hyperlipidemia, CHF not on diuretics, pacemaker in place, chronic anticoagulation with Xarelto presenting to the emergency department for evaluation with concern for shortness of breath and cough. She notes that she has had chronic shortness of breath over the last year, but is been increased over the last 3 days. She also notes a cough productive with sputum. She has had chills. She notes she chronically has leg swelling but her leg swelling is improved from prior because she has been wearing compression stockings and wrapping her legs. She states she was taken off of her fluid pill a long time ago secondary to her kidney function. Of note, she is being followed by general surgery for abdominal pain with concern for gallstones, but they were also worried and working up for chronic and worsening anemia. Related Data Home Medications ?Medication ?Instructions ?Recorded ?Confirmed alendronate 70 mg tablet 70 mg PO QWEEK Bone loss 12/23/17 12/28/23 aspirin 81 mg tablet,delayed 81 mg PO DAILY heart health 12/23/17 12/28/23 release (Adult Low Dose Aspirin) baclofen 10 mg tablet 10 mg PO TID muscle spasms 12/23/17 12/28/23 calcium 500 mg (as 1 tab PO BID suppliment 12/23/17 12/28/23 carbonate)-vitamin D3 5 mcg (200 unit) tablet (Os-Brodie 500 + D3) furosemide 40 mg tablet 20 mg PO DAILY PRN diuretic 12/23/17 12/28/23 isosorbide mononitrate 60 mg 60 mg PO DAILY Chest pain 12/23/17 12/28/23 tablet,extended release 24 hr lisinopril 40 mg tablet 40 mg PO DAILY High blood pressure 12/23/17 12/28/23 multivitamin,nw-opum-nzgrvisv 1 tab PO DAILY SUPPLIMENT 12/23/17 12/28/23 (Complete Multivitamin tablet) nebivolol 2.5 mg tablet (Bystolic) 2.5 mg PO DAILY Hypertension 12/23/17 12/28/23 pantoprazole 40 mg tablet,delayed 40 mg PO BID GERD 12/23/17 12/28/23 release pravastatin 80 mg tablet 80 mg PO DAILY Cholesterol 12/23/17 12/28/23 spironolactone 25 mg tablet 12.5 mg PO DAILY fluid retention 12/23/17 12/28/23 rivaroxaban 20 mg tablet 20 mg PO DAILY Blood thinner 09/02/21 12/28/23 hydrocodone 7.5 mg-acetaminophen 1 tab PO DIRECTED 10/19/23 12/28/23 325 mg tablet bumetanide 1 mg tablet 1 mg PO 11/23/23 12/28/23 nebivolol 10 mg tablet 10 mg PO 11/23/23 12/28/23 Previous Rx's ?Medication ?Instructions ?Recorded ferrous sulfate 325 mg (65 mg 325 mg PO BID 30 days #60 tabs 07/24/23 iron) tablet pregabalin 75 mg capsule 75 mg PO BID Pain #60 caps 11/22/23 azithromycin 500 mg tablet 500 mg PO DAILY 4 days #4 tabs 12/31/23 cefdinir 300 mg capsule 300 mg PO BID 7 days #14 caps 12/31/23 furosemide 40 mg tablet (Lasix) 40 mg PO DAILY #7 tabs 12/31/23 Allergies Allergy/AdvReac Type Severity Reaction Status Date / Time diltiazem [DILTIAZEM] Allergy Intermediate HEART Verified 12/28/23 09:43 RACING acetaminophen Allergy Verified 12/28/23 09:43 [From Theraflu Sinus and Cold] pheniramine Allergy Verified 12/28/23 09:43 [From Theraflu Sinus and Cold] phenylephrine Allergy Verified 12/28/23 09:43 [From Theraflu Sinus and Cold] [facility] Disclaimer: The information contained in this section may have been updated after the patient was seen, as this information can be updated by other users. Medical History History of pacemaker Hypertension Hyperlipidemia Surgical History History of hip surgery History of shoulder surgery History of hysterectomy Family History Other No significant family history Social History Smoking Status: Never smoker alcohol intake: never substance use type: denies use current occupational status: other Travel in the last 8 weeks: None household members: spouse housing: house current occupational exposures/hazards: No caffeine: Yes Other Medical History Have you received the Flu Vaccine for this season: Yes Have you received the Pneumonia Vaccine: Yes ROS Obtained: Yes All systems reviewed & no additional complaints except as documented Physical Exam General General appearance: alert and in no apparent distress Head Head exam: atraumatic and normocephalic Eye Eye exam: Present normal appearance, PERRL and EOMI ENT ENT exam: Present normal exam, normal oropharynx, mucous membranes moist and normal external ear exam Neck Neck exam: Present normal inspection, full ROM and trachea midline; Absent tenderness Chest Chest inspection: Present normal inspection and symmetric chest wall rise; Absent tenderness Respiratory Respiratory exam: Present other (Very mildly tachypneic with rhonchi bilaterally, no significant accessory muscle use, conversational dyspnea, or prolonged expiratory phase); Absent respiratory distress, wheezes, stridor, accessory muscle use or prolonged expiratory phase Cardiovascular Cardiovascular exam: Present regular rate and normal rhythm Abdominal Exam Abdominal exam: Present soft; Absent distention, tenderness or guarding Extremities Exam Extremities exam: Present normal inspection, full ROM and normal capillary refill; Absent tenderness or edema Back Exam Back exam: Present normal inspection and full ROM; Absent tenderness Neurological Exam Neurological exam: Present alert, oriented X3, CN II-XII intact and normal gait; Absent motor sensory deficit Psychiatric Psychiatric exam: Present normal affect and normal mood Skin Skin exam: Present warm and dry HEART Score HEART Score HEART Score assessment performed?: Yes History (anamnesis): Slightly suspicious ECG: Normal Age: >65 years Risk factors: 3 or more risk factors Troponin: </= normal limit HEART Score: 4 Critical Care Critical Care Time Critical Care Time: No Medical Decision Making Yuri Inquiry Pt receiving controlled substance: No Vital Signs Vital Signs: 12/31/23 10:11 12/31/23 10:32 12/31/23 11:00 Temperature 97.5 F L Temperature Source Oral Pulse Rate 65 62 Pulse Rate [Radial] 84 Respiratory Rate 22 18 26 H Blood Pressure 155/78 H 142/70 H Blood Pressure [Right Arm] 162/78 H Blood Pressure Mean 94 Blood Pressure Mean [Right Arm] 106 Blood Pressure Source Blood Pressure Source [Right Arm] Automatic Cuff Blood Pressure Position Blood Pressure Position [Right Arm] Sitting 02 Sat by Pulse Oximetry 97 94 L 94 L Oxygen Delivery Method Room Air Room Air 12/31/23 11:30 12/31/23 12:00 12/31/23 13:11 Temperature Temperature Source Pulse Rate 60 64 64 Pulse Rate [Radial] Respiratory Rate 14 15 16 Blood Pressure 122/61 152/74 H 148/79 H Blood Pressure [Right Arm] Blood Pressure Mean 89 Blood Pressure Mean [Right Arm] Blood Pressure Source Blood Pressure Source [Right Arm] Blood Pressure Position Blood Pressure Position [Right Arm] 02 Sat by Pulse Oximetry 98 97 98 Oxygen Delivery Method Room Air Room Air 12/31/23 13:45 12/31/23 13:59 Temperature 98.1 F Temperature Source Oral Pulse Rate 63 60 Pulse Rate [Radial] Respiratory Rate 14 16 Blood Pressure 119/63 122/64 Blood Pressure [Right Arm] Blood Pressure Mean 98 Blood Pressure Mean [Right Arm] Blood Pressure Source Automatic Cuff Blood Pressure Source [Right Arm] Blood Pressure Position Sitting Blood Pressure Position [Right Arm] 02 Sat by Pulse Oximetry 96 Oxygen Delivery Method Room Air Lab Data Labs: Lab Results 12/31/23 10:22: WBC 5.7, RBC 3.37 L, Hgb 9.7 L, Hct 31.6 L, MCV 93.6, MCH 28.8, MCHC 30.8 L, RDW 14.9, Plt Count 251, MPV 9.1, Neut % (Auto) 56.2, Lymph % (Auto) 29.0, [place] % (Auto) 9.7 H, Eos % (Auto) 4.5, Baso % (Auto) 0.6, Neut # (Auto) 3.2, Lymph # (Auto) 1.7, [place] # (Auto) 0.6, Eos # (Auto) 0.3, Baso # (Auto) 0.0, D-Dimer 1.08 H, Sodium 141, Potassium 4.2, Chloride 108 H, Carbon Dioxide 25, Anion Gap 12.2, BUN 13, Creatinine 1.00, Estimated Creat Clear 67, Estimated GFR 53 L, Est GFR ( Amer) 65, Glucose 89, Calcium 8.8, Magnesium 1.8, Total Bilirubin 0.7, AST 49 H, ALT 20, Alkaline Phosphatase 55, Troponin I < 0.01, C-Reactive Protein 20.3 H, NT-Pro-B Natriuret Pep 1240 H, Total Protein 6.4, Albumin 3.7, Globulin 2.7, Albumin/Globulin Ratio 1.4, Procalcitonin 0.240, TSH 0.74, Thyroxine (T4) 8.9, HIV 1&2 Antibody Rapid Nonreactive 12/31/23 10:35: SARS-CoV-2 (PCR) Not detected, Influenza A Untype (PCR) Not detected, Influenza Type B (PCR) Not detected 12/31/23 10:36: VBG pH 7.39, VBG pCO2 38.4, VBG pO2 65.2 H, VBG HCO3 22.7 L, VBG Total CO2 23.8, VBG O2 Saturation 91.1 H, VBG Base Excess -2.3, VBG Lactic Acid 2.2 H 12/31/23 13:45: Troponin I < 0.01 12/31/23 10:22 12/31/23 10:22 Response Orders (Tests/Meds): ED MEDICATIONS Discontinued Medications Generic Name Dose Route Start Last Admin Trade Name Chris PRN Reason Stop Dose Admin Azithromycin 500 mg 12/31/23 12:20 12/31/23 12:26 Azithromycin 250mg Tablet PO 12/31/23 12:21 500 mg ONCE ONE Administration Cefdinir 300 mg 12/31/23 12:21 12/31/23 12:25 Cefdinir 300mg Capsule PO 12/31/23 12:22 300 mg ONCE ONE Administration Furosemide 40 mg 12/31/23 12:21 12/31/23 12:25 Furosemide 40mg/4ml Vial IV 12/31/23 12:22 40 mg ONCE ONE Administration Iopamidol 70 ml 12/31/23 11:45 12/31/23 11:46 Iopamidol-370 (76%);100ml Bottle IV 12/31/23 11:46 70 ml ONCE ONE Administration Sodium Chloride 10 ml 12/31/23 10:27 Sodium Chloride 0.9% 10ml Flush Syringe IV 01/30/24 10:26 NEEDED PRN Maintain IV Site Sodium Chloride 10 ml 12/31/23 11:45 12/31/23 11:46 Sodium Chloride 0.9% 10ml Syr (Rad Only) IV 12/31/23 11:46 10 ml ONCE ONE Administration Sodium Chloride 50 ml 12/31/23 11:45 12/31/23 11:46 0.9 % Sodium Chloride 50 Ml Vial IV 12/31/23 11:46 50 ml ONCE ONE Administration ORDERS Category Date Time Status CT angio chest PE protocol Stat Cat Scan 12/31/23 11:31 Completed CXR --portable [XR chest portable] Stat Exams 12/31/23 10:35 Completed BNP [NT Pro Brain Natriuretic Pep.] Stat Lab 12/31/23 10:22 Completed CBC w/Auto Diff [Complete Blood Count Auto Diff] Stat Lab 12/31/23 10:22 Completed CMP [Comprehensive Metabolic Panel] Stat Lab 12/31/23 10:22 Completed CRP [C-Reactive Protein] Stat Lab 12/31/23 10:22 Completed D-Dimer Stat Lab 12/31/23 10:22 Completed HIV (1&2) Antibody Rapid Stat Lab 12/31/23 10:22 Completed Hep C Ab with Reflex to RNA Stat Lab 12/31/23 10:22 Received MAG [Magnesium] Stat Lab 12/31/23 10:22 Completed Procalcitonin Stat Lab 12/31/23 10:22 Completed Rapid PCR Covid and Flu A/B Stat Lab 12/31/23 10:35 Completed T4 (Thyroxine) Stat Lab 12/31/23 10:22 Completed TSH [Thyroid Stimulating Hormone] Stat Lab 12/31/23 10:22 Completed Trop I [Troponin I] Stat Lab 12/31/23 10:22 Completed Troponin I Q3H Lab 12/31/23 13:45 Completed VBG [Venous Blood Gas] Stat RT 12/31/23 10:36 Completed ECG Data Tracing #1: Attestation: I reviewed this ECG and interpreted as documented below: ECG Narrative: Normal sinus rhythm with a ventricular rate of 62 bpm. Intermittently paced appropriately. No acute ST changes concerning for ischemia. Normal axis and intervals. ECG initial impression date: 12/31/23 ECG initial impression time: 10:32 MDM Narrative Medical Decision Narrative: In summary, this patient is a 78-year-old female presenting to the Emergency Department for evaluation of shortness of breath and productive cough. Differential diagnoses considered include but are not limited to pneumonia, CHF, COPD, asthma, viral syndrome, respiratory failure. Ruling out the most morbid conditions drove assessment. It should be noted patient's history includes CHF, hypertension, hyperlipidemia, CKD which may or may not be at goal therapy. This complicates all aspects of care by increasing patient's risk for morbidity. I reviewed patient's past medical records and noted previous PT evaluations for bilateral lower extremity lymphedema. On exam, the patient is lying in bed in no acute distress. She is mildly tachypneic, but she is able to talk without conversational dyspnea and has no significantly increased work of breathing otherwise. She has bilateral rhonchi noted, mostly in the bases. Based on acute worsening over the last 3 days with yellow sputum production, I feel this is likely infectious. EKG obtained is reassuring. Workup included lab evaluation to evaluate for infectious versus cardiac causes of symptoms as well as chest x-ray and EKG. Given cannot use PERC criteria to exclude PE based on age, will obtain D-dimer in the setting of shortness of breath. I independently interpreted x-ray prior to the radiologist read and noted bilateral consolidation concerning for developing pneumonia. No obvious overt pulmonary edema. Please see their read for final interpretation. They do note concerns for developing pneumonia. Labs were obtained that demonstrated elevated CRP without significant leukocytosis. BNP is elevated from prior, though it has been a while since we have had previous labs. Troponins negative x 2. Patient has anemia that is actually improved from prior labs. I treated the patient with IV Lasix as well as oral cefdinir and azithromycin with concern for presumed infectious component given purulent sputum. On reassessment, patient had decent improvement after administration of lasix, with good urine output and improvement in her shortness of breath. Her work of breathing improved and she is no longer significantly tachypneic. Vitals remain reassuring. She did not desaturate when walking. O2 saturation 94% with ambulation. She is 99 to 100% at rest. Ultimately, overall workup is reassuring. At this time, patient was deemed to be appropriate for discharge home with trial of oral diuretics and antibiotics to treat presumed URI complicated by CHF exacerbation. 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 She was given strict return precautions and was discharged after all questions were answered.
[2023-12-31 11:29] LABS: HIV (1&2) Antibody Rapid NONREACTIVE (NONREACTIVE)
--- NOTE | 2023-12-31 11:31 | CT_ITS ---
FINAL REPORT TECHNIQUE: Then section axial CT images of the chest were obtained with contrast. Three-D reformatted images were also obtained.This study was performed with techniques to keep radiation doses as low as reasonably achievable (ALARA). Individualized dose reduction techniques using automated exposure control or adjustment of mA and/or kV according to the patient''s size were employed. CLINICAL HISTORY: cough, shortness of breath, elevated dimer COMPARISON: 11/09/2023 FINDINGS: A left subclavian pacer is present. There is no evidence of pulmonary embolism. There is no evidence of thoracic aortic aneurysm or dissection. There is no evidence of mediastinal or hilar mass or adenopathy. There is no evidence of pulmonary mass or suspicious nodule. Mild atelectasis is noted. Limited images of the upper abdomen demonstrate gallstones in the gallbladder. There is a stable right adrenal nodule favored to represent an adenoma. IMPRESSION: No evidence of pulmonary embolism. Reviewed, Interpreted and Dictated by Lele Rinaldi III, MD Transcribed by Ronda De [employer] and [facility]
--- NOTE | 2023-12-31 11:37 | PC.NURSE ---
pt going to CT.
--- NOTE | 2023-12-31 11:38 | PC.NURSE ---
PT TO CT
[2023-12-31] MEDS: IOPAMIDOL-370 (76%);100ML BOTTLE 70 ML IV (11:46)
[2023-12-31] MEDS: SODIUM CHLORIDE 0.9% 10ML SYR (RAD ONLY) 10 ML IV (11:46)
[2023-12-31] MEDS: 0.9 % SODIUM CHLORIDE 50 ML VIAL IV (11:46)
--- NOTE | 2023-12-31 11:52 | PC.NURSE ---
pt returned from CT
[2023-12-31] MEDS: CEFDINIR 300MG CAPSULE 300 MG PO (12:25)
[2023-12-31] MEDS: FUROSEMIDE 40MG/4ML VIAL 40 MG IV (12:25)
[2023-12-31] MEDS: AZITHROMYCIN 250MG TABLET 500 MG PO (12:26)
--- NOTE | 2023-12-31 12:33 | PC.NURSE ---
ASSISTED PT TO THE RESTROOM BY WHEELCHAIR
--- NOTE | 2023-12-31 12:38 | PC.NURSE ---
DR MENARD AT BEDSIDE TO REEVALUATE PT
--- NOTE | 2023-12-31 12:50 | PC.NURSE ---
DR CARSON AT BEDSIDE
--- NOTE | 2023-12-31 12:56 | PC.NURSE ---
PT ASSISTED TO BR
--- NOTE | 2023-12-31 13:13 | PC.NURSE ---
ASSISTED PT TO THE RESTROOM VIA WHEELCHAIR
[2023-12-31 14:18] LABS: Troponin I < 0.01 ng/ml (0.00-0.034)
[2023-12-31 14:45] LABS: Reflex Lactic Add Lactic Reflex
[2024-01-01 08:22] LABS: HCV Ab Non Reactive (Non Reactive)
== END 2023-12-31 14:00 | disposition home or self-care (01) ==
PROVIDERS: Emergency Provider Emergency Medicine; PCP Internal Medicine Adolescent Medicine
DX: I50.9 Heart failure, unspecified (principal); J06.9 Acute upper respiratory infection, unspecified; R06.02 Shortness of breath; R05.9 Cough, unspecified; R68.83 Chills (without fever); R22.43 Localized swelling, mass and lump, lower limb, bilateral
CPT/HCPCS: 71045; 71275; 80053; 82803; 83735; 83880; 84145; 84436; 84443; 84484; 85025; 85378; 86140; 86803; 87389; 87636; 93005; 96374; 99285; J1940; Q9967

== ENCOUNTER 2024-01-03 09:34 | Outpatient (POV) | payer MEDICARE, SELFPAY ==
--- NOTE | 2024-01-03 10:04 | A.OFFVIS_ITS ---
[facility] Disclaimer: The information contained in this section may have been updated after the patient was seen, as this information can be updated by other users. Medical History History of pacemaker Hypertension Hyperlipidemia Surgical History History of hip surgery History of shoulder surgery History of hysterectomy Family History Other No significant family history Social History Smoking Status: Never smoker alcohol intake: never substance use type: denies use current occupational status: other Travel in the last 8 weeks: None household members: spouse housing: house current occupational exposures/hazards: No caffeine: Yes PM Subjective & Objective Subjective Subjective:: Patient is a pleasant 78-year-old female who presents today for worsening shoulder pain. She rates it a 9 out of 10. She states that this is an aching, throbbing sensation in her shoulder along the left side that does make it difficult to perform activities of daily living such as cooking and cleaning. She states that she cannot lift the shoulder up due to the worsening pain and has to really rely on her right shoulder and arm to do more activity. Patient did previously have injection therapy in her right shoulder and it is continued to do well. Patient would like to see about getting an injection for her left shoulder since the pain is much more severe. She states she does still have chronic pain in her knee and was going to come for the injection however one of her providers had concerns since she has a history of fluid on the left knee that the intra-articular injection would aggravate symptoms possibly. Patient does state that she ended up coming to the doctor on Wednesday and was diagnosed with an upper respiratory infection and pneumonia. Patient states that this is also not helping her overall pain symptoms. Patient is prescribed pregabalin 75 mg twice a day along with compounded cream. She denies any side effects and did just get a 3-month supply of her pregabalin at the last visit. Her Yuri has been reviewed and is appropriate. Review of Systems: General: No recent weight changes, no fever, no sleep disturbances Respiratory: No cough, no shortness of air, no recurring pulmonary infections Cardiovascular/peripheral vascular: No chest pain, no palpitations, no edema, no shortness of breath Gastrointestinal: No new onset incontinence, normal bowel movements reported Genitourinary: No new onset incontinence Musculoskeletal: Left shoulder pain Psychiatric: [Normal mood/affect] Neurological: [Denies weakness in extremities], [denies balance issues] Pain at rest (0-10 scale): 9 Objective Objective:: Physical Exam: General: Alert and oriented x3, no acute distress, pleasant and cooperative Lungs: Respirations even and unlabored, symmetrical chest expansion Eyes: PERRL Musculoskeletal: Flexion and extension of left shoulder somewhat guarded secondary to pain, [antalgic gait noted] Neurological: Speech clear, no gross sensory deficit Has patient had previous pain injection?: No Conservative treatment options previously tried: Home exercise plan Length of treatment: Longer than 12 weeks Meds Home Medications and Allergies Home Medications ?Medication ?Instructions ?Recorded ?Confirmed ?Type alendronate 70 mg tablet 70 mg PO QWEEK Bone loss 12/23/17 12/28/23 History aspirin 81 mg tablet,delayed 81 mg PO DAILY heart health 12/23/17 12/28/23 History release (Adult Low Dose Aspirin) baclofen 10 mg tablet 10 mg PO TID muscle spasms 12/23/17 12/28/23 History calcium 500 mg (as 1 tab PO BID suppliment 12/23/17 12/28/23 History carbonate)-vitamin D3 5 mcg (200 unit) tablet (Os-Brodie 500 + D3) furosemide 40 mg tablet 20 mg PO DAILY PRN diuretic 12/23/17 12/28/23 History isosorbide mononitrate 60 mg 60 mg PO DAILY Chest pain 12/23/17 12/28/23 History tablet,extended release 24 hr lisinopril 40 mg tablet 40 mg PO DAILY High blood pressure 12/23/17 12/28/23 History multivitamin,[id number] 1 tab PO DAILY SUPPLIMENT 12/23/17 12/28/23 History (Complete Multivitamin tablet) nebivolol 2.5 mg tablet (Bystolic) 2.5 mg PO DAILY Hypertension 12/23/17 12/28/23 History pantoprazole 40 mg tablet,delayed 40 mg PO BID GERD 12/23/17 12/28/23 History release pravastatin 80 mg tablet 80 mg PO DAILY Cholesterol 12/23/17 12/28/23 History spironolactone 25 mg tablet 12.5 mg PO DAILY fluid retention 12/23/17 12/28/23 History rivaroxaban 20 mg tablet 20 mg PO DAILY Blood thinner 09/02/21 12/28/23 History ferrous sulfate 325 mg (65 mg 325 mg PO BID 30 days #60 tabs 07/24/23 12/28/23 Rx iron) tablet hydrocodone 7.5 mg-acetaminophen 1 tab PO DIRECTED 10/19/23 12/28/23 History 325 mg tablet pregabalin 75 mg capsule 75 mg PO BID Pain #60 caps 11/22/23 12/28/23 Rx bumetanide 1 mg tablet 1 mg PO 11/23/23 12/28/23 History nebivolol 10 mg tablet 10 mg PO 11/23/23 12/28/23 History azithromycin 500 mg tablet 500 mg PO DAILY 4 days #4 tabs 12/31/23 Rx cefdinir 300 mg capsule 300 mg PO BID 7 days #14 caps 12/31/23 Rx furosemide 40 mg tablet (Lasix) 40 mg PO DAILY #7 tabs 12/31/23 Rx New Prescriptions to Start Prescriptions: Allergies Allergy/AdvReac Type Severity Reaction Status Date / Time diltiazem [DILTIAZEM] Allergy Intermediate HEART Verified 12/28/23 09:43 RACING acetaminophen Allergy Verified 12/28/23 09:43 [From Theraflu Sinus and Cold] pheniramine Allergy Verified 12/28/23 09:43 [From Theraflu Sinus and Cold] phenylephrine Allergy Verified 12/28/23 09:43 [From Theraflu Sinus and Cold] Assessment and Plan *Assessment and plan (1) Left shoulder pain: Status: Acute Qualifiers: Chronicity: chronic Qualified Code(s): M25.512 - Pain in left shoulder; G89.29 - Other chronic pain Category: Medical Code(s): M25.512 - Pain in left shoulder Plan Patient is experiencing worsening pain in her left shoulder with limited range of motion. Patient did previously have a left shoulder intra-articular injection back in March that did provide more than 50% and has lasted longer than 3 months. Patient did have improved function with this procedure. I did review over risk and benefits of repeat injection and she would like to proceed forward with this plan of care. Patient has tried and failed conservative therapy including continued at home stretching or exercise for longer than 12 weeks. Patient will be scheduled for a left shoulder intra-articular injection. This will be done without fluoroscopy or ultrasound. Patient has been instructed to contact the clinic with any concerns before the next appointment. Dr. Sorensen has reviewed this note and agrees with this plan of care. This note was dictated using voice recognition software and make contain errors or omissions. All injections are used with Lidocaine or Bupivacaine and Depo Medrol.
[2024-01-03 10:21] VITALS: BP 136/74; PULSE 74; RESP 16; O2SAT 94; BMI 40.7
== END 2024-01-03 23:59 | disposition home or self-care (01) ==
LOC: SC.PAIN 09:35
PROVIDERS: PCP Internal Medicine Adolescent Medicine; Visit Provider Nurse Practitioner Family
DX: M25.512 Pain in left shoulder (principal); G89.29 Other chronic pain; Z73.89 Other problems related to life management difficulty; Z79.899 Other long term (current) drug therapy
CPT/HCPCS: 99212; G0463

== ENCOUNTER 2024-01-03 13:00 | Outpatient (RCR) | payer MEDICARE, SELFPAY ==
--- NOTE | 2023-12-13 10:51 | HMH.PTOPWND ---
Rehab Outpt Wound Evaluation Rehab OP Wound Evaluation Start: 12/13/23 10:24 Freq: Status: Active Protocol: Document 12/13/23 10:32 SHERMAN (Rec: 12/13/23 10:50 PHORMANA [id number]) E-signed By Lai Rodriguez, PT Subjective/History History History This is the initial PT eval for Gina Stone, 78 yowf who presents with c/o increased edema x ~ 2 mos with insidious onset of symptoms. She reports significant c/o pain in B LE with tenderness to palpation as well. SHe reports increased difficulty with ambulation and transfers during this timeframe also, mostly due to increased dyspnea with exertion. She reports PMH of CHF, kidney failure, kidney adenomas per CT scan, gall stones, HTN, HLD , Polio as a child affecting the R LE, R femur fx, R tib/ fib fx, LORA, tubal ligation, L ankle surgery for osteophyte removal, pacemaker, and hx of DVT. She also reports edema does not decrease with elevation of extremities. Subjective Subjective Pain 7/10 currently B LE, 10/ 10 at worst. 3/4 TTP to B lower legs and L thigh this date. Mild B lower leg erythema noted. New diagnosis of cancer in past 12 No months? Lymphedema Eval Classification of Lymphedema Secondary Lymphedema Yes Stemmer's sign Stemmer's Sign yes Stage of Lymphedema Lymphedema stages Stage II (Pitting edema, increased fibrosis w/ decreased pitting) Skin Changes Dry Skin Yes Taut, Shiny Skin Yes Skin Folds Yes Hyperkeratosis Yes Redness Yes Discoloration of Skin Yes Other Changes Yes Pain Scale Pain Scale (0-10) 7 Affected Extremities Areas Affected by Lymphedema/Edema Right Lower Extremity,Left Lower Extremity Lower Extremity Measurements Right MTP Measurement (cm) 24.5 Heel Measurement (cm) 30.8 10 cm Proximal to Lateral Malleoli 29.7 Measurement (cm) 20 cm Proximal to Lateral Malleoli 37.5 Measurement (cm) 30 cm Proximal to Lateral Malleoli 40.5 Measurement (cm) 40 cm Proximal to Lateral Malleoli 42.8 Measurement (cm) 50 cm Proximal to Lateral Malleoli 0 Measurement (cm) 60 cm Proximal to Lateral Malleoli 0 Measurement (cm) Lower Extremity Measurement Total (cm) 205.8 Left MTP Measurement (cm) 23.1 Heel Measurement (cm) 32.2 10 cm Proximal to Lateral Malleoli 25.8 Measurement (cm) 20 cm Proximal to Lateral Malleoli 37.1 Measurement (cm) 30 cm Proximal to Lateral Malleoli 43.6 Measurement (cm) 40 cm Proximal to Lateral Malleoli 45.4 Measurement (cm) 50 cm Proximal to Lateral Malleoli 0 Measurement (cm) 60 cm Proximal to Lateral Malleoli 0 Measurement (cm) Lower Extremity Measurement Total (cm) 207.2 Wound Problems/Impairments Impairments Problems/Impairmments Palpation Tenderness,Impaired Range of Motion,Impaired Strength,Impaired Endurance, Impaired Transfers,Impaired Gait Pattern,Impaired Walking, Impaired Standing,Impaired Sitting,Impaired Shower/ Bathing,Impaired Household Care,Increased Edema, Lymphedema Present,Wound Care Needs,Subjective C/O Pain, Impaired Self Care/Self Management Prognosis Rehab Potential Good Comment Skilled therapy is indicated to reduce overall edema burden and return pt to PLOF. Clinical Impression Consistent with Diagnosis Yes Short Term Goals Number of Weeks 4 Decreased Palpation Tenderness Yes: 2/4 B lower legs Decrease Edema Yes: 1+ pitting edema to B lower legs Decrease Lymphedema Yes: Mild fibrotic edema to B LE Decrease Subjective C/O Pain Yes: 5/10 at rest in B LE Patient to Understand Lymphedema Yes Treatment and Exercises Decrease Girth Measurments by (cm) Yes: B LE total by 5 cm ea [facility] Goals Number of Weeks 6-8 Decreased Palpation Tenderness Yes: 1/4 B lower legs Improve Ability For Household Care Yes: with pain 5/10 or less Decrease Edema Yes: no pitting edema B LE Decrease Lymphedema Yes: No fibrotic edema to B LE Decrease Subjective C/O Pain Yes: 3/10 B LE Patient to be Ind w/ Advanced HEP Yes Patient to be Ind w/ [place] Yes Compression Garments Patient to Adhere Lymphedema Precautions Yes Decrease Girth Measurments by (cm) Yes: B LE total by 15 cm ea Outpatient Therapy Plan of Care Treatment Plan May Include Therapeutic Exercise Including Home Yes Exercise Program Manual Therapy Techniques Yes Neuromuscular Re-education Yes Therapeutic Activities to Return to Yes Previous Functional/Work Level ADL/Self Care Education Yes Orthotics/Bracing/Splinting Yes Manual Lymphatic Drainage Yes Eval/Re-Eval Yes Frequency Times per week 2 Duration Number of Weeks 6-8 Addendums This patient is a candidate for social No or vocational rehab? Patient/Guardian verbally acknowledges Yes understanding of treatment program and consents to further treatment? Patient/Guardian verbally acknowledges Yes understanding of diagnosis, prognosis and goals for treatment? Eval Complexity PT Charges 96398 - High Complexity PHYSICIAN CERTIFICATION: I certify the specified therapy services for Gina Marsh Hermannmaria fernanda are required, authorized, and reviewed every 30 days.
== END 2024-01-03 23:59 | disposition home or self-care (01) ==
LOC: PT 13:00
PROVIDERS: Visit Provider Internal Medicine Adolescent Medicine
DX: I89.0 Lymphedema, not elsewhere classified (principal)
CPT/HCPCS: 97110; 97140; 97163

== ENCOUNTER 2024-01-18 09:26 | Day surgery (SDC) | payer MEDICARE, MEDICAID, SELFPAY ==
[2024-01-18 09:35] VITALS: BP 147/67; PULSE 70; RESP 16; TEMP 36.8; O2SAT 98; BMI 38.9
[2024-01-18] MEDS: LIDOCAINE 1% 5ML PF VIAL 5 ML (09:43)
[2024-01-18] MEDS: BUPIVACAINE 0.25% 10ML INJ 25 MG IJ (09:43)
[2024-01-18] MEDS: methylPREDNISolone ACETATE 80MG/ML VIAL 80 MG (09:43)
[2024-01-18 09:50] VITALS: BP 131/71; PULSE 66; RESP 16; O2SAT 99
--- NOTE | 2024-01-18 11:29 | EXP.PAIN.PRO ---
Procedure Date: 01/18/24 Time: 09:50 Anesthesiologist:: Cody Ford CRNA Complications:: None Pre-procedure Diagnosis:: DJD left shoulder. Chronic left shoulder pain Post-procedure Diagnosis:: Same. Indications for Procedure:: Patient is a very pleasant 78-year-old female comes our clinic today for a left intra-articular shoulder injection. Patient describes left shoulder pain as constant, dull, aching. Patient has 5/5 strength in her left arm. However, limited range of motion secondary to left shoulder pain. According to the patient she has responded very well to intra-articular cortisone in the left shoulder in the past. She rates her pain 8/10. Procedure Details:: Procedure Details: Left shoulder intra-articular injection Informed consent was obtained risk and benefits of the procedure were explained to the patient. Patient was taken to the procedure room. The Left shoulder was prepped using ChloraPrep. A 25-gauge needle was used posteriorly to inject 10 mL bupivacaine 0.25% and Depo-Medrol 40 mg. Patient tolerated procedure well with no complications. Plan and Disposition:: Patient was discharged without incident.
== END 2024-01-18 09:50 | disposition home or self-care (01) ==
LOC: SC.PAINP 09:28
PROVIDERS: PCP Internal Medicine Adolescent Medicine; Visit Provider Nurse Anesthetist, Certified Registered
DX: M19.012 Primary osteoarthritis, left shoulder (principal); M25.512 Pain in left shoulder; G89.29 Other chronic pain
CPT/HCPCS: 20610; J1010

== ENCOUNTER 2024-02-03 08:39 | Outpatient (POV) | payer MEDICARE, MEDICAID, SELFPAY ==
--- NOTE | 2024-02-03 09:07 | A.OFFVIS_ITS ---
[facility] Disclaimer: The information contained in this section may have been updated after the patient was seen, as this information can be updated by other users. Medical History History of pacemaker Hypertension Hyperlipidemia Surgical History History of hip surgery History of shoulder surgery History of hysterectomy Family History Other No significant family history Social History Smoking Status: Never smoker alcohol intake: never substance use type: denies use current occupational status: other Travel in the last 8 weeks: None household members: spouse housing: house current occupational exposures/hazards: No caffeine: Yes PM Subjective & Objective Subjective Subjective:: Patient is a pleasant 78-year-old female who presents today for follow-up of left intra-articular shoulder injection on 01/18/2024. Today she rates her pain a 6 out of 10. Patient states that this injection did help however not as well as it has in the past or as well as her right shoulder did. Patient states that it was very short-lived when it did help. Patient states she is still been experiencing sharp pains that radiate through her left shoulder. Patient denies any prior surgery on the left side. She does state the pain is severe and does interfere with her ability to perform activities of daily living such as cooking and cleaning. Patient is interested in any help we may be able to provide. Patient is prescribed pregabalin 75 mg twice a day from our office along with compounded cream. Patient denies any side effects from this medication and should need refills in February on her pregabalin. Her Yuri has been reviewed and is appropriate. Review of Systems: General: No recent weight changes, no fever, no sleep disturbances Respiratory: No cough, no shortness of air, no recurring pulmonary infections Cardiovascular/peripheral vascular: No chest pain, no palpitations, no edema, no shortness of breath Gastrointestinal: No new onset incontinence, normal bowel movements reported Genitourinary: No new onset incontinence Musculoskeletal: Left shoulder pain Psychiatric: [Normal mood/affect] Neurological: [Denies weakness in extremities], [denies balance issues] Pain at rest (0-10 scale): 6 Objective Objective:: Physical Exam: General: Alert and oriented x3, no acute distress, pleasant and cooperative Lungs: Respirations even and unlabored, symmetrical chest expansion Eyes: PERRL Musculoskeletal: Flexion and extension of left shoulder somewhat guarded secondary to pain, [antalgic gait noted] Neurological: Speech clear, no gross sensory deficit Has patient had previous pain injection?: Yes Percent improvement in pain since last injection: 50% however very temporary Conservative treatment options previously tried: Home exercise plan Length of treatment: Longer than 12 weeks Meds Home Medications and Allergies Home Medications ?Medication ?Instructions ?Recorded ?Confirmed ?Type alendronate 70 mg tablet 70 mg PO QWEEK Bone loss 12/23/17 01/18/24 History aspirin 81 mg tablet,delayed 81 mg PO DAILY heart health 12/23/17 01/18/24 History release (Adult Low Dose Aspirin) baclofen 10 mg tablet 10 mg PO TID muscle spasms 12/23/17 01/18/24 History calcium 500 mg (as 1 tab PO BID suppliment 12/23/17 01/18/24 History carbonate)-vitamin D3 5 mcg (200 unit) tablet (Os-Brodie 500 + D3) furosemide 40 mg tablet 20 mg PO DAILY PRN diuretic 12/23/17 01/18/24 History isosorbide mononitrate 60 mg 60 mg PO DAILY Chest pain 12/23/17 01/18/24 History tablet,extended release 24 hr lisinopril 40 mg tablet 40 mg PO DAILY High blood pressure 12/23/17 01/18/24 History multivitamin,jy-[id number] 1 tab PO DAILY SUPPLIMENT 12/23/17 01/18/24 History (Complete Multivitamin tablet) nebivolol 2.5 mg tablet (Bystolic) 2.5 mg PO DAILY Hypertension 12/23/17 01/18/24 History pantoprazole 40 mg tablet,delayed 40 mg PO BID GERD 12/23/17 01/18/24 History release pravastatin 80 mg tablet 80 mg PO DAILY Cholesterol 12/23/17 01/18/24 History spironolactone 25 mg tablet 12.5 mg PO DAILY fluid retention 12/23/17 01/18/24 History rivaroxaban 20 mg tablet 20 mg PO DAILY Blood thinner 09/02/21 01/18/24 History ferrous sulfate 325 mg (65 mg 325 mg PO BID 30 days #60 tabs 06/01/24 11/26/24 Rx iron) tablet hydrocodone 7.5 mg-acetaminophen 1 tab PO DIRECTED 10/19/23 01/18/24 History 325 mg tablet pregabalin 75 mg capsule 75 mg PO BID Pain #60 caps 11/22/23 01/18/24 Rx bumetanide 1 mg tablet 1 mg PO DIRECTED 11/23/23 01/18/24 History nebivolol 10 mg tablet 10 mg PO DIRECTED 11/23/23 01/18/24 History azithromycin 500 mg tablet 500 mg PO DAILY 4 days #4 tabs 12/31/23 01/18/24 Rx cefdinir 300 mg capsule 300 mg PO BID 7 days #14 caps 12/31/23 01/18/24 Rx furosemide 40 mg tablet (Lasix) 40 mg PO DAILY #7 tabs 12/31/23 01/18/24 Rx sodium,potassium,mag sulfates 17.5 See Rx Instructions PO .COMPLEX 01/28/24 Rx gram-3.13 gram-1.6 gram oral soln #354 mL (Suprep Bowel Prep Kit) sodium sul 1.479 gram-potas ch See Rx Instructions PO PER PKG DIR 01/31/24 Rx 0.188 gram-magnes sul 0.225 gram colonscopy #24 tabs tablet (Sutab) New Prescriptions to Start Prescriptions: Allergies Allergy/AdvReac Type Severity Reaction Status Date / Time diltiazem (DILTIAZEM) Allergy Intermediate HEART Verified 12/28/23 09:43 RACING acetaminophen (From Theraflu Allergy Verified 12/28/23 09:43 Sinus and Cold) pheniramine (From Theraflu Allergy Verified 12/28/23 09:43 Sinus and Cold) phenylephrine (From Theraflu Allergy Verified 12/28/23 09:43 Sinus and Cold) Assessment and Plan *Assessment and plan (1) Left shoulder pain: Status: Acute Qualifiers: Chronicity: chronic Qualified Code(s): M25.512 - Pain in left shoulder; G89.29 - Other chronic pain Category: Medical Code(s): M25.512 - Pain in left shoulder Plan Patient continues to have severe pain in her left shoulder with very limited range of motion. I did discuss with the patient since she did not get long- lasting relief with the intra-articular shoulder injection that I would recommend we try a suprascapular nerve block. Risk and benefits were discussed with patient and she would like to proceed forward with this plan of care. Patient has tried and failed conservative therapy including oral medications, heat and ice, topicals, continued at home stretching exercise for longer than 12 weeks. Patient will be submitted for left suprascapular nerve block. Patient has been instructed to contact the clinic with any concerns before the next appointment. Dr. Sorensen has reviewed this note and agrees with this plan of care. This note was dictated using voice recognition software and make contain errors or omissions. All injections are used with Lidocaine or Bupivacaine and Depo Medrol.
[2024-02-03 09:26] VITALS: BP 129/54; PULSE 81; RESP 18; O2SAT 100; BMI 38.9
== END 2024-02-03 23:59 | disposition home or self-care (01) ==
LOC: SC.PAIN 08:39
PROVIDERS: PCP Internal Medicine Adolescent Medicine; Visit Provider Nurse Practitioner Family
DX: M25.512 Pain in left shoulder (principal); G89.29 Other chronic pain; Z73.89 Other problems related to life management difficulty; Z79.899 Other long term (current) drug therapy
CPT/HCPCS: 99212; G0463

== ENCOUNTER 2024-02-08 10:57 | Day surgery (SDC) | payer MEDICARE, MEDICAID, SELFPAY ==
[2024-02-08 11:29] VITALS: BP 143/87; PULSE 67; RESP 16; TEMP 36.9; O2SAT 100; BMI 38.9
[2024-02-08] MEDS: BUPIVACAINE 0.25% 10ML INJ 25 MG IJ (11:40)
[2024-02-08] MEDS: LIDOCAINE 1% 5ML PF VIAL 5 ML (11:40)
[2024-02-08] MEDS: methylPREDNISolone ACETATE 80MG/ML VIAL 80 MG (11:40)
--- NOTE | 2024-02-08 11:44 | EXP.PAIN.PRO ---
Procedure Date: 02/08/24 Time: 11:30 Anesthesiologist:: Cody Ford CRNA Complications:: None Pre-procedure Diagnosis:: DJD left shoulder. Chronic left shoulder pain Post-procedure Diagnosis:: Same. Indications for Procedure:: Patient is a pleasant 78-year-old female who comes our clinic today for repeat left suprascapular nerve block. Patient has had significant improvement in terms of her left shoulder pain with previous injections. However, she mentions today her last suprascapular nerve block was not as effective. However, she states she has been busy doing home chores. She rates her pain today 8/10. Procedure Details:: Details of the procedure explained to the patient. The patient taken procedure and placed in sitting position. The area over the left scapula was cleaned using chlorhexidine as a cleansing solution. Using a 25-gauge inch and half needle the left suprascapular notch was located with ease. After negative aspiration 10 cc of a solution containing 5 cc of 1% lidocaine +5 cc of 0.25% Marcaine and 40 mg of Depo-Medrol was injected. Patient tolerated procedure without difficulty. There are no complications. Plan and Disposition:: Patient was reevaluated 10 minutes post procedure. She reports much better range of motion with the left shoulder. She was discharged without incident.
[2024-02-08 11:45] VITALS: BP 140/78; PULSE 67; RESP 16; O2SAT 98
== END 2024-02-08 11:45 | disposition home or self-care (01) ==
PROVIDERS: PCP Internal Medicine Adolescent Medicine; Visit Provider Nurse Anesthetist, Certified Registered
DX: M19.012 Primary osteoarthritis, left shoulder (principal); M25.512 Pain in left shoulder; G89.29 Other chronic pain
CPT/HCPCS: 64418; J1010

== ENCOUNTER 2024-03-02 11:00 | Outpatient (POV) | payer MEDICARE, MEDICAID, SELFPAY ==
[2024-03-02 11:16] VITALS: BP 110/52; PULSE 66; RESP 18; O2SAT 95; BMI 38.0
--- NOTE | 2024-03-02 11:26 | A.OFFVIS_ITS ---
[facility] Disclaimer: The information contained in this section may have been updated after the patient was seen, as this information can be updated by other users. Medical History History of pacemaker Hypertension Hyperlipidemia Surgical History History of hip surgery History of shoulder surgery History of hysterectomy Family History Other No significant family history Social History Smoking Status: Never smoker alcohol intake: never substance use type: denies use current occupational status: retired Travel in the last 8 weeks: None household members: spouse housing: house current occupational exposures/hazards: No caffeine: Yes Have you lived/traveled outside [place] in past 30 days?: No Contact w/someone who lives/traveled outside [place] past 30 days?: No Exposure to someone with infectious disease in past 14 days?: No Do you have a fever (greater than 100.4 F or 38 C)?: No Have you tested positive for COVID-19: No Exposed to someone with COVID-19 in past 14 days?: No Do you have a sore throat?: No Do you have a cough?: No Do you have any weakness?: No Do you have any diarrhea?: No Are you experiencing any unusual bleeding?: No Do you have any muscle aches/pain?: No Do you have any abdominal pain?: No Are you experiencing loss of taste or smell?: No PM Subjective & Objective Subjective Subjective:: Patient is a pleasant 78-year-old female who presents today for follow-up of lef t suprascapular nerve block on 02/08/2024. Today she rates her pain a 6 out of 10. She denies any new trauma or injury. She does state that she has had at least 50 to 60% improvement following this injection and feels like it is still helping. She states the pain is not as severe and not as constant. She states that she has been able to have decreased pain on a regular basis however when she does move that shoulder joint it does still send some shooting pain. Patient does feel like this injection did work much better than the intra- articular injection. Patient is currently managed with compounded cream and pregabalin 75 mg twice a day from our office. She denies any side effects from this medication. Her Yuri has been reviewed and is appropriate. Review of Systems: General: No recent weight changes, no fever, no sleep disturbances Respiratory: No cough, no shortness of air, no recurring pulmonary infections Cardiovascular/peripheral vascular: No chest pain, no palpitations, no edema, no shortness of breath Gastrointestinal: No new onset incontinence, normal bowel movements reported Genitourinary: No new onset incontinence Musculoskeletal: Left shoulder pain Psychiatric: [Normal mood/affect] Neurological: [Denies weakness in extremities], [denies balance issues] Pain at rest (0-10 scale): 6 Objective Objective:: Physical Exam: General: Alert and oriented x3, no acute distress, pleasant and cooperative Lungs: Respirations even and unlabored, symmetrical chest expansion Eyes: PERRL Musculoskeletal: Flexion and extension of left shoulder somewhat guarded secondary to pain, [antalgic gait noted] Neurological: Speech clear, no gross sensory deficit Has patient had previous pain injection?: Yes Percent improvement in pain since last injection: 50 to 60% Conservative treatment options previously tried: Home exercise plan Length of treatment: Longer than 12 weeks Meds Home Medications and Allergies Home Medications ?Medication ?Instructions ?Recorded ?Confirmed ?Type alendronate 70 mg tablet 70 mg PO QWEEK Bone loss 12/23/17 03/02/24 History aspirin 81 mg tablet,delayed 81 mg PO DAILY heart health 12/23/17 03/02/24 History release (Adult Low Dose Aspirin) baclofen 10 mg tablet 10 mg PO TID muscle spasms 12/23/17 03/02/24 History calcium 500 mg (as 1 tab PO BID suppliment 12/23/17 03/02/24 History carbonate)-vitamin D3 5 mcg (200 unit) tablet (Os-Brodie 500 + D3) furosemide 40 mg tablet 20 mg PO DAILY PRN diuretic 12/23/17 03/02/24 History isosorbide mononitrate 60 mg 60 mg PO DAILY Chest pain 12/23/17 03/02/24 History tablet,extended release 24 hr lisinopril 40 mg tablet 40 mg PO DAILY High blood pressure 12/23/17 03/02/24 History multivitamin,[id number] 1 tab PO DAILY SUPPLIMENT 12/23/17 03/02/24 History (Complete Multivitamin tablet) nebivolol 2.5 mg tablet (Bystolic) 2.5 mg PO DAILY Hypertension 12/23/17 03/02/24 History pantoprazole 40 mg tablet,delayed 40 mg PO BID GERD 12/23/17 03/02/24 History release pravastatin 80 mg tablet 80 mg PO DAILY Cholesterol 12/23/17 03/02/24 History spironolactone 25 mg tablet 12.5 mg PO DAILY fluid retention 12/23/17 03/02/24 History rivaroxaban 20 mg tablet 20 mg PO DAILY Blood thinner 09/02/21 03/02/24 History ferrous sulfate 325 mg (65 mg 325 mg PO BID 30 days #60 tabs 07/24/23 03/02/24 Rx iron) tablet hydrocodone 7.5 mg-acetaminophen 1 tab PO DIRECTED 10/19/23 03/02/24 History 325 mg tablet pregabalin 75 mg capsule 75 mg PO BID Pain #60 caps 11/22/23 03/02/24 Rx bumetanide 1 mg tablet 1 mg PO DIRECTED 11/23/23 03/02/24 History nebivolol 10 mg tablet 10 mg PO DIRECTED 11/23/23 03/02/24 History furosemide 40 mg tablet (Lasix) 40 mg PO DAILY #7 tabs 12/31/23 03/02/24 Rx sodium,potassium,mag sulfates 17.5 See Rx Instructions PO .COMPLEX 01/28/24 03/02/24 Rx gram-3.13 gram-1.6 gram oral soln #354 mL (Suprep Bowel Prep Kit) sodium sul 1.479 gram-potas ch See Rx Instructions PO PER PKG DIR 01/31/24 03/02/24 Rx 0.188 gram-magnes sul 0.225 gram colonscopy #24 tabs tablet (Sutab) New Prescriptions to Start Prescriptions: Allergies Allergy/AdvReac Type Severity Reaction Status Date / Time diltiazem (DILTIAZEM) Allergy Intermediate HEART Verified 12/28/23 09:43 RACING acetaminophen (From Theraflu Allergy Verified 12/28/23 09:43 Sinus and Cold) pheniramine (From Theraflu Allergy Verified 12/28/23 09:43 Sinus and Cold) phenylephrine (From Theraflu Allergy Verified 12/28/23 09:43 Sinus and Cold) Assessment and Plan *Assessment and plan (1) Left shoulder pain: Status: Acute Qualifiers: Chronicity: chronic Qualified Code(s): M25.512 - Pain in left shoulder; G89.29 - Other chronic pain Category: Medical Code(s): M25.512 - Pain in left shoulder Plan Patient has had significant improvement following her suprascapular nerve block on the left side and does not require any additional interventions at this time. I did discuss with the patient that we will plan on repeating this injection in future since she did not do so much better with this versus the intra-articular. I will refill her pregabalin and provide a 3-month supply of this medication. Patient will return to clinic in 6 weeks for reevaluation of symptoms and plan of care. Patient has been instructed to contact the clinic with any concerns before the next appointment. Dr. Sorensen has reviewed this note and agrees with this plan of care. This note was dictated using voice recognition software and make contain errors or omissions. All injections are used with Lidocaine, Bupivacaine and Depo Medrol. Occasionally urine drug screen is needed to verify patient's compliance with our office pain contract. This is ordered based off specific treatments related to chronic pain with the potential to abuse certain medications.
== END 2024-03-02 23:59 | disposition home or self-care (01) ==
PROVIDERS: PCP Internal Medicine Adolescent Medicine; Visit Provider Nurse Practitioner Family
DX: M25.512 Pain in left shoulder (principal); G89.29 Other chronic pain; Z79.899 Other long term (current) drug therapy
CPT/HCPCS: 99212; G0463

== ENCOUNTER 2024-03-27 14:22 | Emergency (ER) | payer MEDICARE, MEDICAID, SELFPAY ==
[2024-03-27 14:23] VITALS: BP 136/66; PULSE 64; RESP 17; TEMP 36.8; O2SAT 99; BMI 41.6
--- NOTE | 2024-03-27 14:36 | ECG_ITS ---
APPROVED REPORT Exam: Resting ECG HR:62 bpm ECG Measurements Heart Rate 62 AXES OK 193 P 240 QRSd 85 QRS 20 QT 399 T 40 QTc 404 Conclusion ELECTRONIC ATRIAL PACEMAKER LOW QRS VOLTAGE IN PRECORDIAL LEADS [QRS DEFLECTION < 1.0 mV IN CHEST LEADS] ABNORMAL RHYTHM ECG UNCONFIRMED REPORT Electronically signed by : Earl Johnson, 03/27/2024 23:27:50
[2024-03-27 15:16] LABS: Basophils % 0.4 % (0.1-2.0); Eosinophils # 0.3 K/mm3 (0.0-0.4); Eosinophils % 4.2 % (0.1-12.0); Hemoglobin 8.7 g/dL (12.2-16.2); Lymphocytes # 2.1 K/mm3 (0.7-4.5); Lymphocytes % 30.8 % (10-50); Mean Corpuscular Hemoglobin 27.7 pg (27.0-31.2); Mean Corpuscular Volume 92.4 fl (81-99); Mean Platelet Volume 11.3 fl (7.4-10.4); Monocytes # 0.9 K/mm3 (0.1-1.0); Monocytes % 13.3 % (1.7-9.3); Neutrophils # 3.4 K/mm3 (1.8-7.8); Neutrophils % 51.2 % (37.0-80.0); Platelet Count 269 K/mm3 (142-424); Red Blood Count 3.14 M/mm3 (4.20-5.40); Red Cell Distribution Width 15.3 % (11.5-17.5); White Blood Count 6.7 K/mm3 (4.8-10.8)
--- NOTE | 2024-03-27 15:26 | XR_ITS ---
FINAL REPORT CLINICAL HISTORY: dyspnea COMPARISON: 12/31/2023 FINDINGS: CHEST: Positioning is lordotic. A pacemaker is present. The heart size is normal. The mediastinum is normal. There is no focal infiltrate or edema. There are no pleural effusions. There is no pneumothorax. There is no osseous abnormality. IMPRESSION: No acute cardiopulmonary process Reviewed, Interpreted and Dictated by Erfain Hylton MD Transcribed by Carmenza Vasquez Authenticated and [facility]
--- NOTE | 2024-03-27 15:27 | HMH.EDGENADL ---
Discharge Plan Disposition Patient Disposition: Home, Self-Care Prescriptions Prescriptions: No Action Complete Multivitamin tablet 1 tab PO DAILY aspirin [Adult Low Dose Aspirin] 81 mg tablet,delayed release (DR/EC) 81 mg PO DAILY calcium carbonate-vitamin D3 [Os-Brodie 500 + D3] 500 mg(1,250mg) -200 unit tablet 1 tab PO BID baclofen 10 mg tablet 10 mg PO TID alendronate 70 mg tablet 70 mg PO QWEEK pantoprazole 40 mg tablet,delayed release (DR/EC) 40 mg PO BID furosemide 40 mg tablet 20 mg PO DAILY PRN (Reason: diuretic) isosorbide mononitrate 60 mg tablet extended release 24 hr 60 mg PO DAILY pravastatin 80 mg tablet 80 mg PO DAILY lisinopril 40 mg tablet 40 mg PO DAILY spironolactone 25 mg tablet 12.5 mg PO DAILY Bystolic 2.5 mg tablet 2.5 mg PO DAILY hydrocodone-acetaminophen 7.5-325 mg tablet 1 tab PO DIRECTED Patient Comments: TAKE ONE TABLET BY MOUTH EVERY 6 HOURS MAY CAUSE DROWSINESS nebivolol 10 mg tablet 10 mg PO DIRECTED bumetanide 1 mg tablet 1 mg PO DIRECTED rivaroxaban 20 MG tablet 20 mg PO DAILY Sutab 1.479-0.188- 0.225 gram tablet See Rx Instructions PO PER PKG DIR Qty: 24 0RF Rx Instructions: at 6pm the night before procedure, swallow 1 tablet every 1-2 minutes. you should finish 12 tablets and entire 16 oz of water within 20 minutes. IMPORTANT: If you experience pre-related symptoms ( nausea, bloating or cramping) pause and slow the rate of drinking additional water until symptoms diminish. approximately one hour after the last tablet, drink 16 oz of water over 30 mins. then repeat in 30 mins. ferrous sulfate 325 mg (65 mg iron) tablet 325 mg PO BID 30 Days Qty: 60 0RF furosemide [Lasix] 40 mg tablet 40 mg PO DAILY Qty: 7 0RF pregabalin 75 MG capsule 75 mg PO BID Qty: 60 2RF pregabalin [Lyrica] 75 mg capsule 75 mg PO BID Qty: 180 0RF Referrals Follow up/Referrals: Jose Mendoza MD [Primary Care Provider] - See instructions Activity Restrictions/Add. Instructions Additional Instructions/Restrictions: Your hemoglobin is 8.7 which is above the transfusion level. It is a little bit lower than it has been in the past and may be the cause of your chronic shortness of breath. No other cardiopulmonary emergency identified today. Please follow-up closely with your primary care doctor to further discuss your chronic symptoms. Clinical Impressions Clinical Impression: Chronic dyspnea, Chronic anemia Print Language Print Language: Upper Sorbian Discharge ED Provider: Raymond Johnson General Adult HPI General Chief complaint: Weakness Stated complaint: soa Time Seen by Provider: 03/27/24 15:22 Mode of Arrival: Ambulatory Source of Information: Patient Limitations: No Limitations Description of Symptoms (Recalled from ER Triage Doc. by RN): pt to the ED from Dr. Rosales office. pt reports she was told to come straight to the ED because her blood levels were low pt denies chest pain but reports she has felt fatigued and SOB. pt seperately reports she had a L radial heart cath last week but denies any chest pain at this time History of Present Illness HPI narrative: Patient is an 78-year-old female presenting today with dyspnea. She states that she has been short of breath over the last several years but it has been worsening over the last several days. She is chronically on iron supplementation and has chronic dark stools so she is unsure as to whether not this has changed all. States that she has had blood transfusions in the past secondary to being anemic and was supposed to have an outpatient colonoscopy that was performed but that was postponed as she was not cleared from a cardiac standpoint. She had recent blood work drawn at Dr. Vee's office and was told that she had low blood levels and was told to come to the emergency department. Patient denies any cough fevers chills or any chest pain. States that she overall just does not feel well. Related Data Home Medications ?Medication ?Instructions ?Recorded ?Confirmed alendronate 70 mg tablet 70 mg PO QWEEK Bone loss 12/23/17 03/02/24 aspirin 81 mg tablet,delayed 81 mg PO DAILY heart health 12/23/17 03/02/24 release (Adult Low Dose Aspirin) baclofen 10 mg tablet 10 mg PO TID muscle spasms 12/23/17 03/02/24 calcium 500 mg (as 1 tab PO BID suppliment 12/23/17 03/02/24 carbonate)-vitamin D3 5 mcg (200 unit) tablet (Os-Brodie 500 + D3) furosemide 40 mg tablet 20 mg PO DAILY PRN diuretic 12/23/17 03/02/24 isosorbide mononitrate 60 mg 60 mg PO DAILY Chest pain 12/23/17 03/02/24 tablet,extended release 24 hr lisinopril 40 mg tablet 40 mg PO DAILY High blood pressure 12/23/17 03/02/24 multivitamin,[id number] 1 tab PO DAILY SUPPLIMENT 12/23/17 03/02/24 (Complete Multivitamin tablet) nebivolol 2.5 mg tablet (Bystolic) 2.5 mg PO DAILY Hypertension 12/23/17 03/02/24 pantoprazole 40 mg tablet,delayed 40 mg PO BID GERD 12/23/17 03/02/24 release pravastatin 80 mg tablet 80 mg PO DAILY Cholesterol 12/23/17 03/02/24 spironolactone 25 mg tablet 12.5 mg PO DAILY fluid retention 12/23/17 03/02/24 rivaroxaban 20 mg tablet 20 mg PO DAILY Blood thinner 09/02/21 03/02/24 hydrocodone 7.5 mg-acetaminophen 1 tab PO DIRECTED 10/19/23 03/02/24 325 mg tablet bumetanide 1 mg tablet 1 mg PO DIRECTED 11/23/23 03/02/24 nebivolol 10 mg tablet 10 mg PO DIRECTED 11/23/23 03/02/24 Previous Rx's ?Medication ?Instructions ?Recorded ferrous sulfate 325 mg (65 mg 325 mg PO BID 30 days #60 tabs 07/24/23 iron) tablet furosemide 40 mg tablet (Lasix) 40 mg PO DAILY #7 tabs 12/31/23 pregabalin 75 mg capsule 75 mg PO BID Pain #60 caps 03/02/24 pregabalin 75 mg capsule (Lyrica) 75 mg PO BID #180 caps 03/02/24 sodium sul 1.479 gram-potas ch See Rx Instructions PO PER PKG DIR 03/06/24 0.188 gram-magnes sul 0.225 gram colonscopy #24 tabs tablet (Sutab) Allergies Allergy/AdvReac Type Severity Reaction Status Date / Time diltiazem (DILTIAZEM) Allergy Intermediate HEART Verified 12/28/23 09:43 RACING acetaminophen (From Theraflu Allergy Verified 12/28/23 09:43 Sinus and Cold) pheniramine (From Theraflu Allergy Verified 12/28/23 09:43 Sinus and Cold) phenylephrine (From Theraflu Allergy Verified 12/28/23 09:43 Sinus and Cold) [facility] Disclaimer: The information contained in this section may have been updated after the patient was seen, as this information can be updated by other users. Medical History History of pacemaker Hypertension Hyperlipidemia Surgical History History of hip surgery History of shoulder surgery History of hysterectomy Family History Other No significant family history Social History Smoking Status: Never smoker alcohol intake: never substance use type: denies use current occupational status: retired Travel in the last 8 weeks: None household members: spouse housing: house current occupational exposures/hazards: No caffeine: Yes Have you lived/traveled outside US in past 30 days?: No Contact w/someone who lives/traveled outside US past 30 days?: No Exposure to someone with infectious disease in past 14 days?: No Do you have a fever (greater than 100.4 F or 38 C)?: No Have you tested positive for COVID-19: No Exposed to someone with COVID-19 in past 14 days?: No Do you have a sore throat?: No Do you have a cough?: No Do you have any weakness?: No Do you have any diarrhea?: No Are you experiencing any unusual bleeding?: No Do you have any muscle aches/pain?: No Do you have any abdominal pain?: No Are you experiencing loss of taste or smell?: No Other Medical History Have you received the Flu Vaccine for this season: Yes Have you received the Pneumonia Vaccine: Yes ROS Obtained: Yes All systems reviewed & no additional complaints except as documented Physical Exam General General appearance: alert and in no apparent distress Respiratory Respiratory exam: Present normal lung sounds bilaterally; Absent respiratory distress Cardiovascular Cardiovascular exam: Present regular rate; Absent normal rhythm Neurological Exam Neurological exam: Present alert and oriented X3 Medical Decision Making Medical Records Screening: Per USPSTF and CDC recommendations, given the prevalence of disease in our region, it is our hospital?s policy to screen for HIV and viral Hepatitis for all patients aged 18 and over and those with ongoing risk factors. Yuri Inquiry Pt receiving controlled substance: No Vital Signs: 03/27/24 14:23 03/27/24 15:30 03/27/24 16:00 Temperature 98.3 F Temperature Source Oral Pulse Rate 60 60 Pulse Rate [Left Radial] 64 Respiratory Rate 17 Blood Pressure 155/76 H 141/70 H Blood Pressure [Right Arm] 136/66 Blood Pressure Mean [Right Arm] 89 Blood Pressure Source [Right Arm] Automatic Cuff Blood Pressure Position [Right Arm] Sitting 02 Sat by Pulse Oximetry 99 97 97 Oxygen Delivery Method Room Air Room Air Room Air 03/27/24 16:30 Temperature Temperature Source Pulse Rate 60 Pulse Rate [Left Radial] Respiratory Rate Blood Pressure 125/74 Blood Pressure [Right Arm] Blood Pressure Mean [Right Arm] Blood Pressure Source [Right Arm] Blood Pressure Position [Right Arm] 02 Sat by Pulse Oximetry 98 Oxygen Delivery Method Room Air Lab Data Lab results reviewed: Yes I reviewed the patient's lab results. Lab Results 03/27/24 15:05: WBC 6.7, RBC 3.14 L, Hgb 8.7 L, Hct 29.0 L, MCV 92.4, MCH 27.7, MCHC 30.0 L, RDW 15.3, Plt Count 269, MPV 11.3 H, Neut % (Auto) 51.2, Lymph % (Auto) 30.8, [place] % (Auto) 13.3 H, Eos % (Auto) 4.2, Baso % (Auto) 0.4, Neut # (Auto) 3.4, Lymph # (Auto) 2.1, [place] # (Auto) 0.9, Eos # (Auto) 0.3, Baso # (Auto) 0.0, D-Dimer 0.70 H, Sodium 143, Potassium 4.3, Chloride 108 H, Carbon Dioxide 26, Anion Gap 13.3, BUN 24 H, Creatinine 1.20 H, Estimated Creat Clear 31, Estimated GFR 43 L, Est GFR ( Amer) 52 L, Glucose 100, Calcium 9.0, Total Bilirubin 0.2, AST 31, ALT 22, Alkaline Phosphatase 80, Troponin I < 0.01, NT-Pro-B Natriuret Pep 567 H, Total Protein 6.0 L, Albumin 3.7, Globulin 2.3, Albumin/Globulin Ratio 1.6, Blood Type O Positive, Antibody Screen Negative 03/27/24 15:05 03/27/24 15:05 Orders (Tests/Meds): ORDERS Category Date Time Status Type and Screen Stat BBK 03/27/24 15:05 Completed CXR --portable [XR chest portable] Stat Exams 03/27/24 15:26 Completed BNP [NT Pro Brain Natriuretic Pep.] Stat Lab 03/27/24 15:05 Completed Complete Blood Count Auto Diff Stat Lab 03/27/24 15:05 Completed Comprehensive Metabolic Panel Stat Lab 03/27/24 15:05 Completed D-Dimer Stat Lab 03/27/24 15:05 Completed Trop I [Troponin I] Stat Lab 03/27/24 15:05 Completed Troponin I Q3H Lab 03/27/24 18:30 Ordered Troponin I Q3H Lab 03/27/24 21:30 Ordered Medical Decision Narrative: 78-year-old female with above history and physical. Differential includes anemia and dyspnea secondary to oxygen delivery. Also cardiopulmonary emergency such as pulmonary embolism ACS decompensated heart failure etc. on the differential. Broad workup has been initiated will reassess shortly. Chest x-ray performed which I personally interpreted which shows no acute cardiopulmonary emergency Reassessment 5:14 PM patient has respiratory rate that is normal pulse is normal oxygen saturation is 100% on room air labs unremarkable for emergency standpoint D-dimer is less than 1.0 utilizing years criteria no indication for CT PE. Patient does have some anemia with a hemoglobin of 8.7 this is slightly down from last measurement which was in the nines but not below transfusion level. Unclear as to why she was sent emergently for this it is possible that there was laboratory error from outside lab but from our assessment there is no indication for blood transfusion at the moment this was explained to the patient and she is agreeable and aware of this plan. I did discuss with her that her chronic worsening anemia may be the cause of her chronic dyspnea she also recently had an extensive cardiac workup which did not demonstrate any further cause of her symptoms. No negation for admission or further emergent intervention and she was discharged in stable condition. Critical Care Critical Care Time Critical Care Time: No
[2024-03-27 15:30] VITALS: BP 155/76; PULSE 60; O2SAT 97
[2024-03-27 15:35] LABS: Alanine Aminotransferase 22 U/L (12-78); Albumin Level 3.7 g/dl (3.5-5.0); Albumin/Globulin Ratio 1.6 (1.1-1.8); Alkaline Phosphatase 80 U/L (38-126); Anion Gap 13.3 mEq/L (5-15); Aspartate Amino Transferase 31 U/L (14-36); Bilirubin,Total 0.2 mg/dl (0.2-1.3); Blood Urea Nitrogen 24 mg/dl (7-17); Carbon Dioxide 26 mmol/L (22.0-30.0); Chloride 108 mmol/L (98-107); Creatinine Clearance Estimated 31 mL/min (50-200); Estimated Glomerular Filt Rate 43 ml/min (>60); GFR (African American) 52 ML/MIN (>60); Globulin 2.3 g/dL (1.3-3.2); Glucose 100 mg/dl (74-100); Potassium 4.3 mmoL/L (3.5-5.1); Sodium 143 mmol/L (136-145)
[2024-03-27 15:52] LABS: NT Pro Brain Natriuretic Pep. 567 pg/mL (0-450)
[2024-03-27 15:53] LABS: Troponin I < 0.01 ng/ml (0.00-0.034)
[2024-03-27 16:00] VITALS: BP 141/70; PULSE 60; O2SAT 97
[2024-03-27 16:30] VITALS: BP 125/74; PULSE 60; O2SAT 98
[2024-03-27 17:40] VITALS: BP 141/73; PULSE 60; RESP 18; TEMP 36.6; O2SAT 98
== END 2024-03-27 17:40 | disposition home or self-care (01) ==
PROVIDERS: Emergency Provider Student in an Organized Health Care Education/Training Program; PCP Internal Medicine Adolescent Medicine
DX: D64.9 Anemia, unspecified (principal); R06.09 Other forms of dyspnea; R06.02 Shortness of breath; R53.83 Other fatigue
CPT/HCPCS: 71045; 80053; 83880; 84484; 85025; 85378; 86850; 93005; 99284

== ENCOUNTER 2024-04-17 07:46 | Day surgery (SDC) | payer MEDICARE, MEDICAID, SELFPAY ==
[2024-04-13 15:23] VITALS: BMI 40.7
[2024-04-17 08:11] VITALS: BP 144/72; PULSE 76; RESP 20; TEMP 37.3; O2SAT 96
[2024-04-17] MEDS: LACTATED RINGERS 1000ML 1,000 ML 50 ML IV (08:21)
--- NOTE | 2024-04-17 08:53 | P.HP_ITS ---
History of Present Illness *Admission Date: 04/17/24 *History of present illness: Mrs. Stone is an 79-year-old female who is here for diagnostic EGD and colonoscopy secondary to iron deficiency anemia. The patient does get intractable heartburn, belching and bloating. She does get some intermittent choking/dysphagia to solids. She is on iron pills. She reports no melena, hematochezia or bright red blood per rectum. She does report regular bowel function but does have some incomplete bowel evacuation/obstipation. She states that her last EGD and colonoscopy were approximately 5 years ago.. The examination is deemed medically necessary for EGD and colonoscopy. The patient has been seen, interviewed and examined prior to the procedure by both myself and the anesthesia provider. [facility] Disclaimer: The information contained in this section may have been updated after the patient was seen, as this information can be updated by other users. Medical History (Updated 04/17/24 @ 09:10 by Lev Cohen II, MD) Polio History of left heart catheterization (LHC) Cataract History of pacemaker History of pacemaker Hypertension Hyperlipidemia Surgical History (Updated 04/17/24 @ 08:19 by Yahaira Amezcua RN) History of surgery History of hip surgery History of shoulder surgery History of hysterectomy Family History (Updated 04/17/24 @ 08:19 by Yahaira Amezcua RN) Other Cancer Hypertension Social History (Updated 04/17/24 @ 08:20 by Yahaira Amezcua RN) Smoking Status: Never smoker alcohol intake: never substance use type: denies use current occupational status: retired Travel in the last 8 weeks: None household members: spouse housing: house current occupational exposures/hazards: No caffeine: Yes Have you lived/traveled outside US in past 30 days?: No Contact w/someone who lives/traveled outside US past 30 days?: No Exposure to someone with infectious disease in past 14 days?: No Do you have a fever (greater than 100.4 F or 38 C)?: No Have you tested positive for COVID-19: Yes Exposed to someone with COVID-19 in past 14 days?: No Do you have a sore throat?: No Do you have a cough?: No Do you have any weakness?: No Are you experiencing any nausea/vomitting?: No Do you have any diarrhea?: No Are you experiencing any unusual bleeding?: No Do you have any muscle aches/pain?: No Do you have any abdominal pain?: No Are you experiencing loss of taste or smell?: No Other Medical History Have you received the Flu Vaccine for this season: Yes Have you received the Pneumonia Vaccine: Yes Review of Systems Review of Systems Review of systems (narrative): Negative *Cardiovascular Comments: Negative *Gastrointestinal Comments: Negative *Genitourinary Comments: Negative *Musculoskeletal Comments: Negative *Neurologic Comments: Negative Meds Home Medications and Allergies Home Medications ?Medication ?Instructions ?Recorded ?Confirmed ?Type alendronate 70 mg tablet 70 mg PO QWEEK Bone loss 12/23/17 04/17/24 History aspirin 81 mg tablet,delayed 81 mg PO DAILY heart health 12/23/17 04/17/24 History release (Adult Low Dose Aspirin) baclofen 10 mg tablet 10 mg PO TID muscle spasms 12/23/17 04/17/24 History calcium 500 mg (as 1 tab PO BID suppliment 12/23/17 04/17/24 History carbonate)-vitamin D3 5 mcg (200 unit) tablet (Os-Brodie 500 + D3) furosemide 40 mg tablet 20 mg PO DAILY PRN diuretic 12/23/17 04/17/24 History isosorbide mononitrate 60 mg 60 mg PO DAILY Chest pain 12/23/17 04/17/24 History tablet,extended release 24 hr lisinopril 40 mg tablet 40 mg PO DAILY High blood pressure 12/23/17 04/17/24 History multivitamin,gy-zjgj-jhfbltne 1 tab PO DAILY SUPPLIMENT 12/23/17 04/17/24 History (Complete Multivitamin tablet) pantoprazole 40 mg tablet,delayed 40 mg PO BID GERD 12/23/17 04/17/24 History release pravastatin 80 mg tablet 80 mg PO DAILY Cholesterol 12/23/17 04/17/24 History spironolactone 25 mg tablet 12.5 mg PO DAILY fluid retention 12/23/17 04/17/24 History rivaroxaban 20 mg tablet (Xarelto) 20 mg PO DAILY Blood thinner 09/02/21 04/17/24 History ferrous sulfate 325 mg (65 mg 325 mg PO BID 30 days #60 tabs 07/24/23 04/17/24 Rx iron) tablet hydrocodone 7.5 mg-acetaminophen 1 tab PO DIRECTED 10/19/23 04/17/24 History 325 mg tablet bumetanide 1 mg tablet 1 mg PO DIRECTED 11/23/23 04/17/24 History nebivolol 10 mg tablet 12.5 mg PO DIRECTED 11/23/23 04/17/24 History furosemide 40 mg tablet (Lasix) 40 mg PO DAILY #7 tabs 12/31/23 04/17/24 Rx pregabalin 75 mg capsule 75 mg PO BID Pain #60 caps 03/02/24 04/17/24 Rx pregabalin 75 mg capsule (Lyrica) 75 mg PO BID #180 caps 03/02/24 04/17/24 Rx sodium sul 1.479 gram-potas ch See Rx Instructions PO PER PKG DIR 03/06/24 04/17/24 Rx 0.188 gram-magnes sul 0.225 gram colonscopy #24 tabs tablet (Sutab) New Prescriptions to Start Prescriptions: Allergies Allergy/AdvReac Type Severity Reaction Status Date / Time diltiazem (DILTIAZEM) Allergy Intermediate HEART Verified 04/17/24 08:02 RACING acetaminophen (From Theraflu Allergy LIGHT Verified 04/17/24 08:02 Sinus and Cold) HEADED pheniramine (From Theraflu Allergy LIGHT Verified 04/17/24 08:02 Sinus and Cold) HEADED phenylephrine (From Theraflu Allergy LIGHT Verified 04/17/24 08:02 Sinus and Cold) HEADED Exam Data for Last 24 hours Vital signs and Labs for Last 24 Hours: Temp Pulse Resp BP Pulse Ox O2 Del Method 99.1 F 76 20 144/72 H 96 Room Air 04/17/24 08:11 04/17/24 08:11 04/17/24 08:11 04/17/24 08:11 04/17/24 08:11 04/17/24 08:11 *Routine HEENT Exam Head: Present normocephalic Eye: Present EOMI and PERRL ENT: Present mucous membranes moist *Routine Neck Exam Neck: Present supple *Routine Respiratory Exam Respiratory: Present CTA bilaterally *Routine Cardiovascular Exam Cardiovascular: Present RRR *Routine Abdominal Exam Abdominal: Present soft and normoactive bowel sounds; Absent tenderness *Routine Rectal Exam Rectal:: deferred *Routine Genitalia Exam Genitalia:: deferred *Routine Extremities Exam Extremities: Absent cyanosis, clubbing or edema *Routine Skin Exam Skin: Present warm; Absent rash *Routine Neurological Exam Neurological: Present alert and oriented X3 Assessment and Plan *Assessment and plan (1) Iron deficiency anemia: Status: Acute Category: Medical Code(s): D50.9 - Iron deficiency anemia, unspecified (2) Bloating: Status: Acute Category: Medical Code(s): R14.0 - Abdominal distension (gaseous) (3) Belching: Status: Acute Category: Medical Code(s): R14.2 - Eructation (4) Heartburn: Status: Acute Category: Medical Code(s): R12 - Heartburn (5) Dysphagia: Status: Acute Category: Medical Code(s): R13.10 - Dysphagia, unspecified (6) Obstipation: Status: Acute Category: Medical Code(s): K59.00 - Constipation, unspecified Plan A/P: 1. Iron deficiency anemia is the preprocedural diagnosis. The patient does get some intractable heartburn, belching, bloating and dysphagia. She also has some obstipation/incomplete defecation the patient will be anesthetized/sedated using MAC sedation. The patient has been seen and examined. Cardiac and lung assessment prior to the examination is stable. P roceed with planned EGD and colonoscopy
[2024-04-17 09:01] VITALS: O2SAT 98
--- NOTE | 2024-04-17 09:11 | HMH.PROCNOTE ---
[facility] Procedure Note Date: 04/17/24 Time: 09:22 Procedure Note:: Upper Endoscopy Procedure Report: Esophagogastroduodenoscopy with APC ablation, cold biopsies and TTS balloon dilation Endoscopost: Lev Cohen II, MD Referring Physician: Jose Mendoza M.D. Date of Procedure: April 17, 2024 Equipment: Olympus GIF 190 standard upper endoscope Sedation: MAC sedation Indications: Mrs. Stone is an 79-year-old female who is here for diagnostic EGD and colonoscopy secondary to iron deficiency anemia. She was previously on Xarelto but this was discontinued about a month ago. She is on iron tablets. The patient reports no melena, hematochezia or bright red blood per rectum. The patient does have chronic heartburn and reflux. She has moderate bloating and belching. She does get some intermittent right upper quadrant abdominal pain and does have known gallstones. The patient has been Hemoccult negative. The patient does report some choking, regurgitation and intermittent dysphagia to solids. She has some early satiety but reports no nausea. She also reports some obstipation, incomplete bowel evacuation. Her last EGD and colonoscopy was over 5 years ago. Procedure: Prior to the procedure, a history and physical exam was performed, and patient's medications and allergies were reviewed. The risks, benefits and alternatives of the sedation and procedure were discussed with the patient. All questions were answered and informed consent was obtained. The patient was brought to the procedure room. Patient identification and proposed procedure were verified by the physician and the nurse. The patient was placed in a left lateral decubitus position and the scope was passed under direct vision. Throughout the procedure, the patient's blood pressure, pulse, and oxygen saturations were monitored continuously. The upper GI endoscopy was accomplished without difficulty. The patient tolerated the procedure well. Findings: The scope was passed directly into the upper esophagus and advanced to the third portion of the duodenum. The post bulbar duodenum and duodenal bulb were normal with normal mucosa and conniventes. The scope was withdrawn through a normal duodenal bulb and pylorus into the stomach. There were some linear AVMs/angiodysplasias in the antrum and AVMs/angiodysplasias in the fundus. There was some coffee-ground adjacent to the AVMs. All of the visible AVMs/angiodysplasias were ablated/coagulated using APC ablation. There were a few scattered fundic gland gastric polyps. There was very mild gastritis. Biopsies were obtained from the lesser curvature. Upon retroflexion there was no hiatal hernia. The scope was then withdrawn into the esophagus. There was no evidence of any reflux esophagitis or Rivera's. There were tertiary contractions and evidence of moderate esophageal dysmotility. The entire esophagus was dilated to 60 [place]/20 mm with a TTS hydrostatic balloon. There was mild resistance at the cricopharyngeus. The remainder of the esophageal mucosa was normal. Impression: 1. 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 Nonerosive GERD with moderate esophageal dysmotility 3. Gastric fundic polyps 4. Mild chronic gastritis Plan: I will follow-up the biopsies. I do suspect that the patient's iron deficiency anemia is related to the angiodysplasia/AVMs and prior use of anticoagulation (Xarelto). I will proceed with diagnostic colonoscopy. I will discuss the findings with the patient and family.
--- NOTE | 2024-04-17 09:27 | HMH.PROCNOTE ---
[facility] Procedure Note Date: 04/17/24 Time: 09:30 Procedure Note:: Aborted colonoscopy Procedure Report: Flexible sigmoidoscopy Endoscopist: Lev Cohen II, MD Referring physician: Jose Mendoza M.D. Date of Procedure: April 17, 2024 Equipment: Olympus 190 variable stiffness pediatric colonoscope Sedation: MAC sedation Indication: Mrs. Stone is an 79-year-old female who is here for diagnostic EGD and colonoscopy secondary to iron deficiency anemia. She was previously on Xarelto but this was discontinued about a month ago. She is on iron tablets. The patient reports no melena, hematochezia or bright red blood per rectum. The patient does have chronic heartburn and reflux. She has moderate bloating and belching. She does get some intermittent right upper quadrant abdominal pain and does have known gallstones. The patient has been Hemoccult negative. The patient does report some choking, regurgitation and intermittent dysphagia to solids. She has some early satiety but reports no nausea. She also reports some obstipation, incomplete bowel evacuation. Her last EGD and colonoscopy was over 5 years ago. Procedure: Prior to the procedure, a history and physical exam was performed, and patient's medications and allergies were reviewed. The risks, benefits and alternatives of the sedation and procedure were discussed with the patient. All questions were answered and informed consent was obtained. The patient was brought to the procedure room. Patient identification and proposed procedure were verified by the physician and the nurse. The patient was placed in a left lateral decubitus position and the scope was passed under direct vision. Throughout the procedure, the patient's blood pressure, pulse, and oxygen saturations were monitored continuously. The colonoscopy was accomplished without difficulty. The patient tolerated the procedure well. Findings: On digital rectal examination, there was normal tone. There were external tags. The scope was then inserted through the anal canal to the rectum and advanced to 25 cm. There was abundant solid brown stool with poor visualization. The colon was poorly prepped and the procedure was aborted. The visualized rectum was normal. Impression: 1. Very poor bowel preparation?procedure aborted Plan: I would recommend Hemoccult testing. If she is still Hemoccult negative, I would not pursue repeat colonoscopy. I do suspect that her iron deficiency anemia and occult GI blood loss are from the upper digestive tract and AVMs/angiodysplasias.
[2024-04-17 09:32] VITALS: BP 131/99; PULSE 72; RESP 18; TEMP 36.5; O2SAT 92
[2024-04-17 09:42] VITALS: BP 120/72; PULSE 68; RESP 18; O2SAT 91
[2024-04-17 09:52] VITALS: BP 138/74; PULSE 68; RESP 18; O2SAT 94
[2024-04-17 10:26] VITALS: BP 141/75; PULSE 65; RESP 18; O2SAT 95
== END 2024-04-17 10:08 | disposition home or self-care (01) ==
PROVIDERS: PCP Internal Medicine Adolescent Medicine; Visit Provider Internal Medicine Gastroenterology
PROC: 0DJ08ZZ Inspection of Upper Intestinal Tract, Via Natural or Artificial Opening Endoscopic (ICD-10-PCS; CPT 45378; principal; 2024-04-17 09:00)
DX: D50.9 Iron deficiency anemia, unspecified (principal); R14.0 Abdominal distension (gaseous); R14.2 Eructation; R12 Heartburn; R13.10 Dysphagia, unspecified; K59.00 Constipation, unspecified; K31.819 Angiodysplasia of stomach and duodenum without bleeding; K21.9 Gastro-esophageal reflux disease without esophagitis; K22.4 Dyskinesia of esophagus; K31.7 Polyp of stomach and duodenum; K29.70 Gastritis, unspecified, without bleeding
CPT/HCPCS: 43239; 43270; 45378; C1726; C2618; J7120

== ENCOUNTER 2024-04-19 09:19 | Outpatient (CLI) | payer MEDICARE, MEDICAID, SELFPAY ==
[2024-04-19 16:00] LABS: Occult Blood,Stool Positive (Negative)
== END 2024-04-19 23:59 | disposition home or self-care (01) ==
LOC: LAB 09:20
PROVIDERS: PCP Internal Medicine Adolescent Medicine; Visit Provider Internal Medicine Gastroenterology
DX: D50.9 Iron deficiency anemia, unspecified (principal)
CPT/HCPCS: 82272; G0328

== ENCOUNTER 2024-04-19 09:33 | Outpatient (POV) | payer MEDICARE, MEDICAID, SELFPAY ==
[2024-04-19 09:49] VITALS: BP 141/54; PULSE 59; RESP 18; O2SAT 97; BMI 41.6
--- NOTE | 2024-04-19 09:56 | A.OFFVIS_ITS ---
[facility] Disclaimer: The information contained in this section may have been updated after the patient was seen, as this information can be updated by other users. Medical History Polio History of left heart catheterization (LHC) Cataract History of pacemaker History of pacemaker Hypertension Hyperlipidemia Surgical History History of surgery History of hip surgery History of shoulder surgery History of hysterectomy Family History Other Cancer Hypertension Social History Smoking Status: Never smoker alcohol intake: never substance use type: denies use current occupational status: retired Travel in the last 8 weeks: None household members: spouse housing: house current occupational exposures/hazards: No caffeine: Yes PM Subjective & Objective Subjective Subjective:: Patient is a pleasant 79-year-old female who presents today for worsening left shoulder pain. She rates it an 8 out of 10. She denies any new falls or injuries. She does state that any little bit of movement in that joint causes severe pain. She states she cannot lift her arm or any type of objects without severe shooting pain. She is stating that it interferes with her ability perform activities of daily living such as cooking and cleaning. Patient did previously have a suprascapular nerve block back in January that did provide 50 to 60% improvement and did really work well up until the last couple of weeks. Patient is interested in additional injections. She is currently managed with compounded cream and pregabalin 75 mg twice a day from our office. She denies any side effects. Her Yuri has been reviewed and is appropriate. Review of Systems: General: No recent weight changes, no fever, no sleep disturbances Respiratory: No cough, no shortness of air, no recurring pulmonary infections Cardiovascular/peripheral vascular: No chest pain, no palpitations, no edema, no shortness of breath Gastrointestinal: No new onset incontinence, normal bowel movements reported Genitourinary: No new onset incontinence Musculoskeletal: Left shoulder pain Psychiatric: [Normal mood/affect] Neurological: [Denies weakness in extremities], [denies balance issues] Pain at rest (0-10 scale): 8 Objective Objective:: Physical Exam: General: Alert and oriented x3, no acute distress, pleasant and cooperative Lungs: Respirations even and unlabored, symmetrical chest expansion Eyes: PERRL Musculoskeletal: Flexion and extension of left shoulder somewhat guarded secondary to pain, [antalgic gait noted] Neurological: Speech clear, no gross sensory deficit Has patient had previous pain injection?: No Conservative treatment options previously tried: Home exercise plan Length of treatment: Longer than 12 weeks Meds Home Medications and Allergies Home Medications ?Medication ?Instructions ?Recorded ?Confirmed ?Type alendronate 70 mg tablet 70 mg PO QWEEK Bone loss 12/23/17 04/19/24 History aspirin 81 mg tablet,delayed 81 mg PO DAILY heart health 12/23/17 04/19/24 History release (Adult Low Dose Aspirin) baclofen 10 mg tablet 10 mg PO TID muscle spasms 12/23/17 04/19/24 History calcium 500 mg (as 1 tab PO BID suppliment 12/23/17 04/19/24 History carbonate)-vitamin D3 5 mcg (200 unit) tablet (Os-Brodie 500 + D3) furosemide 40 mg tablet 20 mg PO DAILY PRN diuretic 12/23/17 04/19/24 History isosorbide mononitrate 60 mg 60 mg PO DAILY Chest pain 12/23/17 04/19/24 History tablet,extended release 24 hr lisinopril 40 mg tablet 40 mg PO DAILY High blood pressure 12/23/17 04/19/24 History multivitamin,ir-brfp-oediaokg 1 tab PO DAILY SUPPLIMENT 12/23/17 04/19/24 History (Complete Multivitamin tablet) pantoprazole 40 mg tablet,delayed 40 mg PO BID GERD 12/23/17 04/19/24 History release pravastatin 80 mg tablet 80 mg PO DAILY Cholesterol 12/23/17 04/19/24 History spironolactone 25 mg tablet 12.5 mg PO DAILY fluid retention 12/23/17 04/19/24 History rivaroxaban 20 mg tablet (Xarelto) 20 mg PO DAILY Blood thinner 09/02/21 04/19/24 History ferrous sulfate 325 mg (65 mg 325 mg PO BID 30 days #60 tabs 07/24/23 04/19/24 Rx iron) tablet hydrocodone 7.5 mg-acetaminophen 1 tab PO DIRECTED 10/19/23 04/19/24 History 325 mg tablet bumetanide 1 mg tablet 1 mg PO DIRECTED 11/23/23 04/19/24 History nebivolol 10 mg tablet 12.5 mg PO DIRECTED 11/23/23 04/19/24 History furosemide 40 mg tablet (Lasix) 40 mg PO DAILY #7 tabs 12/31/23 04/19/24 Rx pregabalin 75 mg capsule 75 mg PO BID Pain #60 caps 03/02/24 04/19/24 Rx pregabalin 75 mg capsule (Lyrica) 75 mg PO BID #180 caps 03/02/24 04/19/24 Rx sodium sul 1.479 gram-potas ch See Rx Instructions PO PER PKG DIR 03/06/24 04/19/24 Rx 0.188 gram-magnes sul 0.225 gram colonscopy #24 tabs tablet (Sutab) New Prescriptions to Start Prescriptions: Allergies Allergy/AdvReac Type Severity Reaction Status Date / Time diltiazem (DILTIAZEM) Allergy Intermediate HEART Verified 04/17/24 08:02 RACING acetaminophen (From Theraflu Allergy LIGHT Verified 04/17/24 08:02 Sinus and Cold) HEADED pheniramine (From Theraflu Allergy LIGHT Verified 04/17/24 08:02 Sinus and Cold) HEADED phenylephrine (From Theraflu Allergy LIGHT Verified 04/17/24 08:02 Sinus and Cold) HEADED Assessment and Plan *Assessment and plan (1) Left shoulder pain: Status: Acute Qualifiers: Chronicity: chronic Qualified Code(s): M25.512 - Pain in left shoulder; G89.29 - Other chronic pain Category: Medical Code(s): M25.512 - Pain in left shoulder Plan Due to the patient's severe pain in her left shoulder with limited range of motion I will proceed forward with ordering a CT without contrast. Patient does have a pacemaker in place and we have recently done x-ray imaging that did show arthritis. I did also review over risk and benefits of repeat suprascapular nerve block and she would like to proceed forward with this plan of care. Evangelina ent has tried and failed conservative therapy including oral medication, heat and ice, topicals, at home stretching exercise for longer than 12 weeks in between injections. Patient did previously have her last suprascapular nerve block in January that did provide 50 to 60% improvement and has lasted up until the last 2 weeks. Patient will be scheduled for a left suprascapular nerve block. This will be done without fluoroscopic guidance or ultrasound. I will also make sure that she does have refills on her compounded cream and pregabalin. Patient has been instructed to contact the clinic with any concerns before the next appointment. Dr. Sorensen has reviewed this note and agrees with this plan of care. This note was dictated using voice recognition software and make contain errors or omissions. All injections are used with Lidocaine, Bupivacaine and Depo Medrol. Occasionally urine drug screen is needed to verify patient's compliance with our office pain contract. This is ordered based off specific treatments related to chronic pain with the potential to abuse certain medications.
== END 2024-04-19 23:59 | disposition home or self-care (01) ==
PROVIDERS: PCP Internal Medicine Adolescent Medicine; Visit Provider Nurse Practitioner Family
DX: M25.512 Pain in left shoulder (principal); G89.29 Other chronic pain; Z73.89 Other problems related to life management difficulty; Z79.899 Other long term (current) drug therapy
CPT/HCPCS: 99212; G0463

== ENCOUNTER 2024-04-24 13:15 | Outpatient (CLI) | payer MEDICARE, MEDICAID, SELFPAY ==
--- NOTE | 2024-04-24 13:18 | CT_ITS ---
FINAL REPORT TECHNIQUE: Axial imaging of the left shoulder was obtained without contrast. This study was performed with techniques to keep radiation doses as low as reasonably achievable (ALARA). Individualized dose reduction techniques using automated exposure control or adjustment of mA and/or kV according to the patient's size were employed. CLINICAL HISTORY: LT SHOULDER PAIN FINDINGS: There are mild degenerative changes of the glenohumeral joint. Moderate degenerative changes are seen of the acromioclavicular joint. There is no fracture. There is no evidence of bone destruction. IMPRESSION: Degenerative changes without acute bony abnormality. Reviewed, Interpreted and Dictated by Chris Temple MD Transcribed by Sophie Leslie Authenticated and [facility]
== END 2024-04-24 23:59 | disposition home or self-care (01) ==
LOC: RAD 13:16
PROVIDERS: PCP Internal Medicine Adolescent Medicine; Visit Provider Nurse Practitioner Family
DX: M25.512 Pain in left shoulder (principal)
CPT/HCPCS: 73200

== ENCOUNTER 2024-05-09 14:13 | Day surgery (SDC) | payer MEDICARE, MEDICAID, SELFPAY ==
[2024-05-09 14:16] VITALS: BP 149/85; PULSE 89; RESP 16; TEMP 36.8; O2SAT 98; BMI 40.7
[2024-05-09 14:50] VITALS: BP 150/76; PULSE 67; RESP 16; O2SAT 95
--- NOTE | 2024-05-09 14:55 | P.PCN_ITS ---
Procedure Date: 05/09/24 Time: 14:35 Anesthesiologist:: Cody Ford CRNA Complications:: None Pre-procedure Diagnosis:: DJD left shoulder. Chronic left shoulder pain. Post-procedure Diagnosis:: Same. Indications for Procedure:: Patient is a very pleasant 79-year-old female who comes our clinic today for a left supra scapular nerve block. Patient describes left shoulder pain as constant, dull, aching, sharp, stabbing. Patient has 5/5 strength in the left arm. However, very limited range of motion secondary to left shoulder pain. Patient reports pain intensifies at night. Patient has had chronic left shoulder pain for several years. Recent x-ray of the left shoulder shows mod erate to severe degenerative changes in the acromioclavicular joint. Degenerative changes throughout the joint. No fracture evident. Procedure Details:: Details of the procedure explained to the patient. The patient taken procedure room placed in the sitting position. The area over the left shoulder was cleaned using chlorhexidine as a cleansing solution. Using a 25-gauge inch and half needle the left suprascapular notch was identified. After negative aspiration 4 cc of 1% lidocaine +2 cc of 0.25% Marcaine +40 mg of Depo-Medrol was injected. Patient tolerated procedure without difficulty. There are no complications. Plan and Disposition:: I discussed in detail with the patient regarding the chronic left shoulder pain. If in fact this left suprascapular nerve block is not successful we should attempt anterior intra-articular shoulder injection. Patient was discharged without incident.
[2024-05-09 14:59] VITALS: BP 149/85; PULSE 89; RESP 18; O2SAT 98
[2024-05-09 15:01] VITALS: BP 149/85; PULSE 89; RESP 18; O2SAT 97
== END 2024-05-09 14:50 | disposition home or self-care (01) ==
LOC: SC.PAINP 14:15
PROVIDERS: PCP Internal Medicine Adolescent Medicine; Visit Provider Nurse Anesthetist, Certified Registered
DX: M19.012 Primary osteoarthritis, left shoulder (principal); M25.512 Pain in left shoulder; G89.29 Other chronic pain
CPT/HCPCS: 64418; J1010

== ENCOUNTER 2024-05-29 10:05 | Outpatient (POV) | payer MEDICARE, MEDICAID, SELFPAY ==
--- NOTE | 2024-05-29 10:09 | A.OFFVIS_ITS ---
[facility] Disclaimer: The information contained in this section may have been updated after the patient was seen, as this information can be updated by other users. Medical History Polio History of left heart catheterization (LHC) Cataract History of pacemaker History of pacemaker Hypertension Hyperlipidemia Surgical History History of surgery History of hip surgery History of shoulder surgery History of hysterectomy Family History Other Cancer Hypertension Social History Smoking Status: Never smoker alcohol intake: never substance use type: denies use current occupational status: retired Travel in the last 8 weeks: None household members: spouse housing: house current occupational exposures/hazards: No caffeine: Yes PM Subjective & Objective Subjective Subjective:: Patient is a pleasant patient is a pleasant 79-year-old female who presents today for follow-up of left suprascapular nerve block on 05/09/2024. Today she rates her pain a 6 out of 10. She denies any new trauma or injury. She does state that she had approximately 40 to 50% improvement following this injection. Patient previously had a suprascapular in January that did provide 50 to 60% improvement and did last however this injection did not do as well as the previous one. Patient states that it was much better while it was all nice and numb however once the numbing medication wore off she felt like it was pretty much back to its baseline. She states that certain movements just really agg ravate the overall pain. Patient states when she is reaching outward she does have a sharp shooting pain and it does interfere with her ability perform activities of daily living. Patient does also still states she continues to have pain related to her left knee as well. Patient states that currently the shoulder is still more painful than the knee.Patient is managed with compounded cream and pregabalin 75 mg twice a day from our office. She denies any side effects. Her Yuri has been reviewed and is appropriate. Review of Systems: General: No recent weight changes, no fever, no sleep disturbances Respiratory: No cough, no shortness of air, no recurring pulmonary infections Cardiovascular/peripheral vascular: No chest pain, no palpitations, no edema, no shortness of breath Gastrointestinal: No new onset incontinence, normal bowel movements reported Genitourinary: No new onset incontinence Musculoskeletal: Left shoulder pain, left knee pain Psychiatric: [Normal mood/affect] Neurological: [Denies weakness in extremities], [denies balance issues] Pain at rest (0-10 scale): 6 Objective Objective:: Physical Exam: General: Alert and oriented x3, no acute distress, pleasant and cooperative Lungs: Respirations even and unlabored, symmetrical chest expansion Eyes: PERRL Musculoskeletal: Flexion and extension of left shoulder somewhat guarded secondary to pain, [antalgic gait noted] Neurological: Speech clear, no gross sensory deficit Has patient had previous pain injection?: Yes Percent improvement in pain since last injection: 40 to 50% while numb Conservative treatment options previously tried: Home exercise plan Length of treatment: Longer than 12 weeks Meds Home Medications and Allergies Home Medications ?Medication ?Instructions ?Recorded ?Confirmed ?Type alendronate 70 mg tablet 70 mg PO QWEEK Bone loss 12/23/17 05/09/24 History aspirin 81 mg tablet,delayed 81 mg PO DAILY heart health 12/23/17 05/09/24 History release (Adult Low Dose Aspirin) baclofen 10 mg tablet 10 mg PO TID muscle spasms 12/23/17 05/09/24 History calcium 500 mg (as 1 tab PO BID suppliment 12/23/17 05/09/24 History carbonate)-vitamin D3 5 mcg (200 unit) tablet (Os-Brodie 500 + D3) furosemide 40 mg tablet 20 mg PO DAILY PRN diuretic 12/23/17 05/09/24 History isosorbide mononitrate 60 mg 60 mg PO DAILY Chest pain 12/23/17 05/09/24 History tablet,extended release 24 hr lisinopril 40 mg tablet 40 mg PO DAILY High blood pressure 12/23/17 05/09/24 History multivitamin,[id number] 1 tab PO DAILY SUPPLIMENT 12/23/17 05/09/24 History (Complete Multivitamin tablet) pantoprazole 40 mg tablet,delayed 40 mg PO BID GERD 12/23/17 05/09/24 History release pravastatin 80 mg tablet 80 mg PO DAILY Cholesterol 12/23/17 05/09/24 History spironolactone 25 mg tablet 12.5 mg PO DAILY fluid retention 12/23/17 05/09/24 History rivaroxaban 20 mg tablet (Xarelto) 20 mg PO DAILY Blood thinner 09/02/21 History ferrous sulfate 325 mg (65 mg 325 mg PO BID 30 days #60 tabs 07/24/23 05/09/24 Rx iron) tablet hydrocodone 7.5 mg-acetaminophen 1 tab PO DIRECTED 10/19/23 05/09/24 History 325 mg tablet bumetanide 1 mg tablet 1 mg PO DIRECTED 11/23/23 05/09/24 History nebivolol 10 mg tablet 12.5 mg PO DIRECTED 11/23/23 05/09/24 History furosemide 40 mg tablet (Lasix) 40 mg PO DAILY #7 tabs 12/31/23 05/09/24 Rx pregabalin 75 mg capsule 75 mg PO BID Pain #60 caps 03/02/24 05/09/24 Rx sodium sul 1.479 gram-potas ch See Rx Instructions PO PER PKG DIR 05/25/24 Rx 0.188 gram-magnes sul 0.225 gram colonscopy #24 tabs tablet (Sutab) pregabalin 75 mg capsule (Lyrica) 75 mg PO BID #180 caps 05/29/24 Rx New Prescriptions to Start Prescriptions: sharanabalin [Lyrica] Staci Newsome Allergies Allergy/AdvReac Type Severity Reaction Status Date / Time diltiazem (DILTIAZEM) Allergy Intermediate HEART Verified 04/17/24 08:02 RACING acetaminophen (From Theraflu Allergy LIGHT Verified 04/17/24 08:02 Sinus and Cold) HEADED pheniramine (From Theraflu Allergy LIGHT Verified 04/17/24 08:02 Sinus and Cold) HEADED phenylephrine (From Theraflu Allergy LIGHT Verified 04/17/24 08:02 Sinus and Cold) HEADED Assessment and Plan *Assessment and plan (1) Left shoulder pain: Status: Acute Qualifiers: Chronicity: chronic Qualified Code(s): M25.512 - Pain in left shoulder; G89.29 - Other chronic pain Category: Medical Code(s): M25.512 - Pain in left shoulder (2) Left knee pain: Status: Acute Category: Medical Code(s): M25.562 - Pain in left knee Plan Patient continues to experience significant pain in her left shoulder with limited range of motion. Patient was counseled that she had her last intra- articular injection back in December 2023 and that it may be beneficial for us to repeat this injection as the suprascapular only helped While it was nice and numb. Risk and benefits of this injection were explained to the patient and she would like to proceed forward with this plan of care. Patient does state the pain is just so severe on a regular basis patient has tried and failed conservative therapy including continued at home stretching exercise for longer than 12 weeks that was physician guided. I will refill the patient's pregabalin and provide a 3-month supply of this medication. I will also order x-ray imaging due to her chronic left knee pain and having no updated imaging related to this. Patient did have point tenderness along her left anserine bursa with swelling. I did discuss with patient in future we may order additional advanced imaging and that she may benefit from additional injection therapy in this joint as well. We will follow-up with this in future. Patient will be scheduled for a left shoulder intra-articular injection. This will be done without fluoroscopic or ultrasound guidance. Patient has had chronic left shoulder pain longer than 6 months and she has had her last intra-articular shoulder injection in December 2023. Patient has been instructed to contact the clinic with any concerns before the next appointment. Dr. Sorensen has reviewed this note and agrees with this plan of care. This note was dictated using voice recognition software and make contain errors or omissions. All injections are used with Lidocaine, Bupivacaine and Depo Medrol. Occasionally urine drug screen is needed to verify patient's compliance with our office pain contract. This is ordered based off specific treatments related to chronic pain with the potential to abuse certain medications.
[2024-05-29 10:21] VITALS: BP 114/54; PULSE 65; RESP 18; O2SAT 96; BMI 41.1
--- NOTE | 2024-05-29 10:25 | XR_ITS ---
FINAL REPORT CLINICAL HISTORY: chronic Left knee pain, nki, pt unable to do weight bearing images FINDINGS: LEFT KNEE Three views demonstrate no acute fracture or dislocation. There is moderate narrowing in the medial compartment joint space. There is chondrocalcinosis. A bipartite patella is noted. There is no joint effusion. There are moderate vascular calcifications. 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 Reviewed, Interpreted and Dictated by Efrain Hylton MD Transcribed by Dawn Bocanegra Authenticated and [facility]
== END 2024-05-29 23:59 | disposition home or self-care (01) ==
PROVIDERS: PCP Internal Medicine Adolescent Medicine; Visit Provider Nurse Practitioner Family
DX: M25.562 Pain in left knee (principal); M25.512 Pain in left shoulder; G89.29 Other chronic pain; Z73.89 Other problems related to life management difficulty
CPT/HCPCS: 73562; 99212; G0463

== ENCOUNTER 2024-06-07 09:45 | Day surgery (SDC) | payer MEDICARE, MEDICAID, SELFPAY ==
[2024-06-06 10:33] VITALS: BMI 40.7
[2024-06-07 11:20] VITALS: BP 144/79; PULSE 83; RESP 18; TEMP 36.5; O2SAT 96
[2024-06-07] MEDS: LACTATED RINGERS 1000ML 1,000 ML 50 ML IV (11:32)
--- NOTE | 2024-06-07 11:39 | EXP.ANES.CKL ---
[facility] Disclaimer: The information contained in this section may have been updated after the patient was seen, as this information can be updated by other users. Medical History (Updated 06/07/24 @ 11:23 by Yahaira Amezcua RN) History of COVID-19 Edema Fluid retention CHF (congestive heart failure) GERD (gastroesophageal reflux disease) Neuropathy Chronic pain Anemia Bone spur of left foot Polio History of left heart catheterization (LHC) Cataract History of pacemaker History of pacemaker Hypertension Hyperlipidemia Surgical History History of surgery History of hip surgery History of shoulder surgery History of hysterectomy Family History Other Cancer Hypertension Social History (Updated 06/07/24 @ 11:23 by Yahaira Amezcua RN) Smoking Status: Never smoker alcohol intake: never substance use type: denies use current occupational status: retired Travel in the last 8 weeks: None household members: spouse housing: house current occupational exposures/hazards: No caffeine: Yes Have you lived/traveled outside US in past 30 days?: No Contact w/someone who lives/traveled outside US past 30 days?: No Exposure to someone with infectious disease in past 14 days?: No Do you have a fever (greater than 100.4 F or 38 C)?: No Have you tested positive for COVID-19: No Exposed to someone with COVID-19 in past 14 days?: No Do you have a sore throat?: No Do you have a cough?: No Do you have any weakness?: No Are you experiencing any nausea/vomitting?: No Do you have any diarrhea?: No Are you experiencing any unusual bleeding?: No Do you have any muscle aches/pain?: No Do you have any abdominal pain?: No Are you experiencing loss of taste or smell?: No [facility] Anesthesia Checklist Patient Identification Patient Identification: Arm Band Structural Data Admitted From: Home Planned Operative Procedure/s: Colonoscopy Consent for Planned Operative Procedure(s) Verified: Yes Verified Documents: Surgical Consent and History and Physical NPO Status Verified Time NPO: 07:30 (finished prep) Additional verifications Anesthesia Reactions: No Hx Blood Transfusions: No Blood Transfusion Reaction: No Airway Assessment Mallampati Score:: Class II C-Spine Mobility Assessed: Yes TMJ Mobility Assessed: Yes Dentition: Good Dentition Neurological Assessment Level of Consciousness: Awake, Alert and Appropriate Anesthesia Plan Anesthesia Risk discussed: Yes Anesthesia Plan: Verified ASA Class: III Anesthesia Type: MAC
--- NOTE | 2024-06-07 11:42 | EXP.HP ---
History of Present Illness *Admission Date: 06/07/24 *Reason for visit:: Iron deficiency anemia *History of present illness: Mrs. Stone is an 79-year-old female who is here for repeat attempted colonoscopy secondary to iron deficiency anemia. She did have an aborted colonoscopy on April 17, 2024 due to inadequate and very poor bowel preparation. At the time of her EGD in March, I did find scattered angiodysplasias in the stomach that were ablated using APC. After the procedures, I did recommend repeating Hemoccult testing and she was fecal Hemoccult positive. She was previously on Xarelto but this was discontinued a few months ago. She had been on iron tablets. The patient reports no melena, hematochezia or bright red blood per rectum. The patient does have bloating, belching and intermittent right upper quadrant abdominal pain. Her last colonoscopy was about 5 years ago. [facility] Disclaimer: The information contained in this section may have been updated after the patient was seen, as this information can be updated by other users. Medical History (Updated 06/07/24 @ 11:46 by Lev Cohen II, MD) History of COVID-19 Edema Fluid retention CHF (congestive heart failure) GERD (gastroesophageal reflux disease) Neuropathy Chronic pain Anemia Bone spur of left foot Polio History of left heart catheterization (LHC) Cataract History of pacemaker History of pacemaker Hypertension Hyperlipidemia Surgical History History of surgery History of hip surgery History of shoulder surgery History of hysterectomy Family History Other Cancer Hypertension Social History (Updated 06/07/24 @ 11:23 by Yahaira Amezcua RN) Smoking Status: Never smoker alcohol intake: never substance use type: denies use current occupational status: retired Travel in the last 8 weeks: None household members: spouse housing: house current occupational exposures/hazards: No caffeine: Yes Have you lived/traveled outside US in past 30 days?: No Contact w/someone who lives/traveled outside US past 30 days?: No Exposure to someone with infectious disease in past 14 days?: No Do you have a fever (greater than 100.4 F or 38 C)?: No Have you tested positive for COVID-19: No Exposed to someone with COVID-19 in past 14 days?: No Do you have a sore throat?: No Do you have a cough?: No Do you have any weakness?: No Are you experiencing any nausea/vomitting?: No Do you have any diarrhea?: No Are you experiencing any unusual bleeding?: No Do you have any muscle aches/pain?: No Do you have any abdominal pain?: No Are you experiencing loss of taste or smell?: No Other Medical History Have you received the Flu Vaccine for this season: Yes Have you received the Pneumonia Vaccine: Yes Review of Systems Review of Systems Review of systems (narrative): Negative *Cardiovascular Comments: Negative *Gastrointestinal Comments: Negative *Genitourinary Comments: Negative *Musculoskeletal Comments: Negative *Neurologic Comments: Negative Meds Home Medications and Allergies Home Medications ?Medication ?Instructions ?Recorded ?Confirmed ?Type alendronate 70 mg tablet 70 mg PO QWEEK Bone loss 12/23/17 06/07/24 History aspirin 81 mg tablet,delayed 81 mg PO DAILY heart health 12/23/17 06/07/24 History release (Adult Low Dose Aspirin) baclofen 10 mg tablet 10 mg PO TID muscle spasms 12/23/17 06/07/24 History calcium 500 mg (as 1 tab PO BID suppliment 12/23/17 06/07/24 History carbonate)-vitamin D3 5 mcg (200 unit) tablet (Os-Brodie 500 + D3) isosorbide mononitrate 60 mg 60 mg PO DAILY Chest pain 12/23/17 06/07/24 History tablet,extended release 24 hr lisinopril 40 mg tablet 40 mg PO DAILY High blood pressure 12/23/17 06/07/24 History multivitamin,ts-wowm-vkgzoqie 1 tab PO DAILY SUPPLIMENT 12/23/17 06/07/24 History (Complete Multivitamin tablet) pantoprazole 40 mg tablet,delayed 40 mg PO BID GERD 12/23/17 06/07/24 History release pravastatin 80 mg tablet 80 mg PO DAILY Cholesterol 12/23/17 06/07/24 History spironolactone 25 mg tablet 12.5 mg PO DAILY fluid retention 12/23/17 06/07/24 History ferrous sulfate 325 mg (65 mg 325 mg PO BID 30 days #60 tabs 07/24/23 06/07/24 Rx iron) tablet hydrocodone 7.5 mg-acetaminophen 1 tab PO DIRECTED 10/19/23 06/07/24 History 325 mg tablet nebivolol 10 mg tablet 12.5 mg PO DIRECTED 11/23/23 06/07/24 History furosemide 40 mg tablet (Lasix) 40 mg PO DAILY #7 tabs 12/31/23 06/07/24 Rx sodium sul 1.479 gram-potas ch See Rx Instructions PO PER PKG DIR 05/25/24 06/07/24 Rx 0.188 gram-magnes sul 0.225 gram colonscopy #24 tabs tablet (Sutab) pregabalin 75 mg capsule (Lyrica) 75 mg PO BID Pain 06/07/24 06/07/24 History New Prescriptions to Start Prescriptions: Allergies Allergy/AdvReac Type Severity Reaction Status Date / Time diltiazem (DILTIAZEM) Allergy Intermediate HEART Verified 06/07/24 11:16 RACING pheniramine (From Theraflu Allergy LIGHT Verified 06/07/24 11:16 Sinus and Cold) HEADED phenylephrine (From Theraflu Allergy LIGHT Verified 06/07/24 11:16 Sinus and Cold) HEADED Exam Data for Last 24 hours Vital signs and Labs for Last 24 Hours: Temp Pulse Resp BP Pulse Ox O2 Del Method 97.7 F 83 18 144/79 H 96 Room Air 06/07/24 11:20 06/07/24 11:20 06/07/24 11:20 06/07/24 11:20 06/07/24 11:20 06/07/24 11:20 I & O for Last 24 hours: Intake & Output 06/04/24 06/05/24 06/06/24 06/07/24 23:59 23:59 23:59 23:59 Weight 230 lb *Routine HEENT Exam Head: Present normocephalic Eye: Present EOMI and PERRL ENT: Present mucous membranes moist *Routine Neck Exam Neck: Present supple *Routine Respiratory Exam Respiratory: Present CTA bilaterally *Routine Cardiovascular Exam Cardiovascular: Present RRR *Routine Abdominal Exam Abdominal: Present soft and normoactive bowel sounds; Absent tenderness *Routine Rectal Exam Rectal:: deferred *Routine Genitalia Exam Genitalia:: deferred *Routine Extremities Exam Extremities: Absent cyanosis, clubbing or edema *Routine Skin Exam Skin: Present warm; Absent rash *Routine Neurological Exam Neurological: Present alert and oriented X3 Assessment and Plan *Assessment and plan (1) Iron deficiency anemia: Status: Acute Category: Medical Code(s): D50.9 - Iron deficiency anemia, unspecified (2) Positive occult stool blood test: Status: Acute Category: Medical Code(s): R19.5 - Other fecal abnormalities (3) Bloating: Status: Acute Category: Medical Code(s): R14.0 - Abdominal distension (gaseous) (4) Right upper quadrant abdominal pain: Status: Acute Category: Medical Code(s): R10.11 - Right upper quadrant pain Plan A/P: 1. Iron deficiency anemia with positive fecal Hemoccult is the preprocedural diagnosis. The patient will be anesthetized/sedated using MAC sedation. The patient has been seen and examined. Cardiac and lung assessment prior to the examination is stable. Proceed with planned diagnostic colonoscopy.
[2024-06-07 11:46] VITALS: O2SAT 100
--- NOTE | 2024-06-07 11:50 | HMH.PROCNOTE ---
[facility] Procedure Note Date: 06/07/24 Time: 12:12 Procedure Note:: Colonoscopy Procedure Report: Colonoscopy with cold biopsies, spot ink submucosal injection tattoo and cold snare polypectomy Endoscopist: Lev Cohen II, MD Referring physician: Jose Mendoza M.D. Date of Procedure: June 07, 2024 Equipment: Olympus 190 variable stiffness pediatric colonoscope Sedation: MAC sedation Indication: Mrs. Stone is an 79-year-old female who is here for repeat attempted colonoscopy secondary to iron deficiency anemia. She did have an aborted colonoscopy on April 17, 2024 due to inadequate and poor bowel preparation. At the time of her upper endoscopy at the same time in March, I did find scattered angiodysplasias in the stomach that were ablated using APC. After the procedures, I did recommend repeating Hemoccult testing and she was fecal Hemoccult positive. She was previously on Xarelto but this was discontinued a few months ago. She had been on iron tablets. The patient reports no melena, hematochezia or bright red blood per rectum. The patient does have bloating, belching and intermittent right upper quadrant abdominal pain. The patient does have known gallstones. Her last colonoscopy was about 5 years ago. Procedure: Prior to the procedure, a history and physical exam was performed, and patient's medications and allergies were reviewed. The risks, benefits and alternatives of the sedation and procedure were discussed with the patient. All questions were answered and informed consent was obtained. The patient was brought to the procedure room. Patient identification and proposed procedure were verified by the physician and the nurse. The patient was placed in a left lateral decubitus position and the scope was passed under direct vision. Throughout the procedure, the patient's blood pressure, pulse, and oxygen saturations were monitored continuously. The colonoscopy was accomplished without difficulty. The patient tolerated the procedure well. Findings: On digital rectal examination there was normal rectal tone. There were no external hemorrhoids. The colonoscope was introduced through the anal canal to the rectum and advanced to the cecum. The ileocecal valve and appendiceal orifice were identified. The scope was advanced a short distance into the ileum which appeared grossly normal. The scope was then withdrawn into the colon. At the site of the hepatic flexure/junction of ascending/transverse was a large circumferential fungating and friable mass with surface ulceration and surface black eschar. This was a 5 cm (in length) colon cancer at the hepatic flexure. Multiple biopsies were obtained. Spot ink tattoo was injected (10 mL) approximately 3 to 5 cm distal or downstream in transverse colon. This was injected submucosally. There were 4 additional polyps that were identified initially on examination (transverse x 2 (4 and 7 mm), descending x 1 (5 mm) and sigmoid x 1 (4 mm)). These were removed via cold snare polypectomy. There were scattered extensive diverticuli throughout the descending and sigmoid colon (LEFT colon). The rectum itself was normal. Upon retroflexion within the rectum there were grade 2 internal hemorrhoids. The preparation was fair throughout with [place] Preparation Score of 7 out of 9. The cecal time was 19 minutes. Impression: 1. Large hepatic flexure fungating and friable apple core circumferential mass (5 cm in length)?probable colonic adenocarcinoma?status post biopsies and spot ink tattoo (distal to mass) 2. Additional 4 diminutive colonic polyps 3. Extensive left-sided diverticulosis 4. Grade 2 internal hemorrhoids Plan: I will follow-up the biopsies and discuss the findings with the patient and family. The patient did have CT imaging from November 2023 and there is no remarks about:. This was done with and without contrast. I will obtain repeat IV/oral contrast scan, obtain CEA level and refer the patient to colorectal surgery.
[2024-06-07 12:14] VITALS: BP 124/59; PULSE 64; RESP 16; TEMP 36.4; O2SAT 92
[2024-06-07 12:24] VITALS: BP 128/65; PULSE 64; RESP 18; O2SAT 92
[2024-06-07 12:34] VITALS: BP 130/76; PULSE 64; RESP 18; O2SAT 96
[2024-06-07 12:44] VITALS: BP 164/95; PULSE 62; RESP 16; O2SAT 96
--- NOTE | 2024-06-07 16:18 | PC.NURSE ---
Was called to visit with patient after a postive colonoscopy for a mass. Pt was given some information about services that we offer here and my contact for any questions that she may have while waiting on her appt at . Family and patient care secretary were in the room and verbalized understanding of the information. Information packet and my card were sent home with pt. I will do a follow up call within a week to the patient to see if she has any other questions or concerns.
[2024-06-08 08:41] LABS: CEA 3.2 ng/mL (0.0-4.7)
== END 2024-06-07 13:00 | disposition home or self-care (01) ==
PROVIDERS: PCP Internal Medicine Adolescent Medicine; Visit Provider Internal Medicine Gastroenterology
PROC: 0DJD8ZZ Inspection of Lower Intestinal Tract, Via Natural or Artificial Opening Endoscopic (ICD-10-PCS; CPT 45378; principal; 2024-06-07 11:30)
DX: C18.3 Malignant neoplasm of hepatic flexure (principal); C18.7 Malignant neoplasm of sigmoid colon; K63.5 Polyp of colon; K57.30 Diverticulosis of large intestine without perforation or abscess without bleeding; K64.1 Second degree hemorrhoids; D50.9 Iron deficiency anemia, unspecified; R19.5 Other fecal abnormalities; R14.0 Abdominal distension (gaseous); R10.11 Right upper quadrant pain
CPT/HCPCS: 45380; 45381; 45385; 36415; 82378; J7120

== ENCOUNTER 2024-08-10 17:11 | Emergency (ER) | payer MEDICARE, MEDICAID, SELFPAY ==
--- OUTSIDE RECORDS SUMMARY | 2024-05-27 17:30 | XMS_ITS ---
Author Organization [facility] D MAGAN Address [address] [place] [address] Care Team Providers Care Internet E Commerce Specialist Name Role Phone Jose Mendoza Primary Care Provider [phone] Migration, Provider Unavailable Unavailable Allergies Allergen (clinical drug ingredient) Drug/Non Drug Allergy documented on EMR Reaction Allergy Type Onset Date Status oseltamivir Tamiflu dizziness Drug Allergy Activ e REASON FOR VISIT [facility] Conversion Encounter Medications Medication SIG (Take, Route, Frequency, Duration) Notes Start Date End Date Status NEBIVOLOL 10 MG TAKE 1 TABLET EVERY DAY for 90 *Please review for potential replacement for e-prescription and drug interaction check* Active FeroSul 325 (65 Fe) MG TAKE 1 TABLET TWICE DAILY for 90 Active Gemtesa 75 MG TAKE 1 TABLET EVERY DAY for 90 Active Fluticasone Propionate 50 MCG/ACT 1 spray(s) in each nostril 2 times a day for 30 days 06/23/2023 Active Triamcinolone Acetonide 0.5 % 1 emigdio applied topically 2 times a day for 7 days 09/16/2023 Active Alendronate Sodium 70 MG 1 tab(s) orally once a week for 90 days Active Peridex 0.12 % 15 mL orally 2 times a day for 30 days 12/31/2022 Active Baclofen 10 MG 1 tab(s) orally 3 times a day for 90 days Active Multivitamin MULTIPLE VITAMINS 1 CAP(S) ORALLY ONCE A DAY *Please review and pick correct strength[facility]ulatio [facility]. If intended option is not shown, discontinue and re-order from Quick Search* Active Methocarbamol 500 MG 1-2 tab(s) orally 3 times a day for 5 day(s) 03/26/2020 Active Xarelto 20 MG 1 tab(s) orally once a day (in the evening) for 90 days Active Aspirin 81 MG 1 tab(s) orally once a day Active Lisinopril 20 MG 1 tab(s) orally once a day for 90 days Active OS-EHSAN 500 1250 MG 1 TAB(S) ORALLY BID *Please review for potential replacement for e-prescription and drug interaction check* Active Pravastatin Sodium 80 MG 1 tab(s) orally once a day for 90 days Active Doxycycline Monohydrate 100 MG 1 cap(s) orally 2 times a day for 7 days 05/05/2024 Active Pantoprazole Sodium 40 MG 1 tab(s) orally twice a day for 90 days Active Benzonatate 200 MG 1 cap(s) orally 3 times a day for 5 days 05/05/2024 Active Isosorbide Mononitrate ER 60 MG 1 tab(s) orally once a day (in the morning) for 90 days Active HYDROcodone-Acetamino phen 7.5-325 MG 1 tab(s) orally every 6 hours for 30 days 05/11/2024 Active Furosemide 40 MG 1 tab(s) orally once a day for 90 days 04/25/2024 Active Encounters Encounter Location Date Provider Diagnosis [facility] PED [facility] [address] [facility] [address] [place] [phone] 05/27/2024 Provider Migration Chronic pain syndrome G89.4 and Bronchitis J40 Assessments Encounter Date Diagnosis (ICD Code) Assessment Notes Treatment Notes Treatment Clinical Notes Section Notes 05/27/2024 Chronic pain syndrome (ICD-10 - G89.4) 05/27/2024 Bronchitis (ICD-10 - J40) Plan Of Treatment Medication Medication Name Sig Start Date Stop Date Notes Xarelto 20 MG 1 tab(s) orally once a day (in the evening) for 90 days Lisinopril 20 MG 1 tab(s) orally once a day for 90 days Pravastatin Sodium 80 MG 1 tab(s) orally once a day for 90 days Doxycycline Monohydrate 100 MG 1 cap(s) orally 2 times a day for 7 days 05/05/2024 Pantoprazole Sodium 40 MG 1 tab(s) orall y twice a day for 90 days Benzonatate 200 MG 1 cap(s) orally 3 ti mes a day for 5 days 05/05/2024 Isosorbide Mononitrate ER 60 MG 1 tab(s) orally once a day (in the morning) for 90 days HYDROcodone-Acetaminophen 7.5-325 MG 1 tab(s) orally every 6 hours for 30 days 05/11/2024 Next Appt Details Provider Name:Jose Mendoza, 08/15/2024 10:30:00 AM, [address] [place] [address], [phone], Progress Notes * Jorge TIMeDOB:1945 (79 yo F)Acc No.[id number]:05/27/2024 Patient: Gina MARTINEZ Provider: Rain Araujo :1945 A ge:79 Y S ex:Female Date:05/27/2024 Address:[address] [phone] Pcp:Jose Mendoza Subjective: * Chief Complaints: * [facility] * Medical History: * Medications: [...] *Please review and pick correct [facility]. If intended option is not [...] * Vitals: Assessment: * Assessment: 1. B rondebitis - J40 (Primary) 2 . C hronic [...] Electronic signature of Prov ider Migration on 08/10/2024 at 05:26 PM EDT Sign off status: Pending * Provider: Rain small Migration Date: 0 05/27/2024 Generated for Maico mullen/Valentin/Jessica on: 0 08/10/2024 05:26 PM EDT
--- OUTSIDE RECORDS SUMMARY | 2024-06-13 06:45 | XMS_ITS ---
Author Organization [facility] Address [address] [place] [address] Care Team Providers Care [employer] Instructor Name Role Phone Jose Mendoza Primary Care Provider [phone] Allergies Allergen (clinical drug ingredient) Drug/Non Drug Allergy documented on EMR Reaction Allergy Type Onset Date Status oseltamivir Tamiflu dizziness Drug Allergy Activ e REASON FOR VISIT 3 month ck, just got DX with Colon cancer Medications Medication SIG (Take, Route, Frequency, Duration) Notes Start Date End Date Status Pantoprazole Sodium 40 MG 1 tab(s) orally twice a day for 90 days Active HYDROcodone-Acetamino phen 7.5-325 MG 1 tab(s) orally every 6 hours for 30 days 06/12/2024 Active Isosorbide Mononitrate ER 60 MG 1 tab(s) orally once a day (in the morning) for 90 days Active Xarelto 20 MG 1 tab(s) orally once a day (in the evening) for 90 days Active Lisinopril 20 MG 1 tab(s) orally once a day for 90 days Active NEBIVOLOL 10 MG TAKE 1 TABLET EVERY DAY for 90 *Please review for potential replacement for e-prescription and drug interaction check* Active Furosemide 40 MG 1 tab(s) orally once a day for 90 days 04/25/2024 Active Pravastatin Sodium 80 MG 1 tab(s) orally once a day for 90 days Active Gemtesa 75 MG TAKE 1 TABLET EVERY DAY for 90 Active Triamcinolone Acetonide 0.5 % 1 emigdio applied topically 2 times a day for 7 days 09/16/2023 Active FeroSul 325 (65 Fe) MG TAKE 1 TABLET TWICE DAILY for 90 Active Peridex 0.12 % 15 mL orally 2 times a day for 30 days 12/31/2022 Active Fluticasone Propionate 50 MCG/ACT 1 spray(s) in each nostril 2 times a day for 30 days 06/23/2023 Active Multivitamin MULTIPLE VITAMINS 1 CAP(S) ORALLY ONCE A DAY *Please review and pick correct strength-formulatio n from [facility] options. If intended option is not shown, discontinue and re-order from Quick Search* Active Methocarbamol 500 MG 1-2 tab(s) orally 3 times a day for 5 day(s) 03/26/2020 Active OS-EHSAN 500 1250 MG 1 TAB(S) ORALLY BID *Please review for potential replacement for e-prescription and drug interaction check* Active Baclofen 10 MG 1 tab(s) orally 3 times a day for 90 days Active Alendronate Sodium 70 MG 1 tab(s) orally once a week for 90 days Active Aspirin 81 MG 1 tab(s) orally once a day Active Problems Problem Type SNOMED Code ICD Code Onset Dates Problem Status W/U Status Risk Notes Problem [id number] Adenocarcino ma, colon (C18.9) Active confirmed Vital Signs Temperature 97.9 degrees Fahrenheit 06/14/19 25 Heart Rate 74 /min 06/13/2024 Blood pressure systolic 125 mm Hg 06/14/19 25 Blood pressure diastolic 80 mm Hg 025 Height 5 ft 3 in in 06/13/2024 Weight 224 lbs 06/13/2024 BMI 39.68 kg/m2 06/13/2024 Encounters Encounter Location Date Provider Diagnosis [address] [address] 06/13/2024 Jose Mendoza Adenocarcinoma, colo n C18.9 ; Atherosclerosis of [place] coronary artery of [place] heart without angina pectoris I25.10 ; Iron deficiency anemia, unspecified iron deficiency anemia type D50.9 ; Diastolic CHF, chronic I50.32 and Chronic pain syndrome G89.4 Assessments Encounter Date Diagnosis (ICD Code) Assessment Notes Treatment Notes Treatment Clinical Notes Section Notes 06/13/2024 Adenocarcinoma, colon (ICD-10 - C18.9) Reviewed colonoscopy results with patient. Workup is in progress, will follow along with patient. 06/13/2024 Atherosclerosis of [place] coronary artery of [place] heart without angina pectoris (ICD-10 - I25.10) Currently stable from heart disease perspective, continues to follow with [facility].Will represent a high risk patient if resection is deemed to be an option by colorectal surgery 06/13/2024 Iron deficiency anemia, unspecified iron deficiency anemia type (ICD-10 - D50.9) Will follow-up in 2 months with blood counts at that point 06/13/2024 Diastolic CHF, chronic (ICD-10 - I50.32) Currently appears euvolemic, blood pressure under good control, no changes in cardiac or diuretic medications 06/13/2024 Chronic pain syndrome (ICD-10 - G89.4) Patient has been compliant with our office and [place] regulations r.e. meds. No concerns on my part about diversion or misuse. Labs and Yuri reports reviewed and are appropriate. Plan Of Treatment Treatment Notes Assessment Notes Adenocarcinoma, colon Reviewed colonoscopy results with patient. Workup is in progress, will follow along with patient. Atherosclerosis of [place] co ronary artery of [place] heart without angina pectoris Currently stable from heart disease perspective, continues to follow with [facility].Will represent a high risk patient if resection is deemed to be an option by colorectal surgery Iron deficiency anemia, unsp ecified iron deficiency anemia type Will follow-up in 2 months with blood counts at that point Diastolic CHF, chronic Currently appears euvolemic, blood pressure under good control, no changes in cardiac or diuretic medications Chronic pain syndrome Patient has been c ompliant with our office and [place] regulations r.e. meds. No concerns on my part about diversion or misuse. Labs and Yuri reports reviewed and are appropriate. Next Appt Details Follow Up: prn, Reason: Provider Name:Jose Mendoza, 08/15/2024 10:30:00 AM, [address], [address], Progress Notes * HERMANNJorge PIKEValentínOB:1945 (79 yo F)Acc No.[id number]:06/13/2024 Progress Notes Patient: Gina MARTINEZ Provider: Abdelrahman Mendoza MD :1945 A ge:79 Y S ex:Female Date:06/13/2024 Address:[address] [id number] Subjective: * Chief Complaints: * 1 . 3 month ck. 2. just got DX with Colon cancer. * HPI: g en: Gina presents to follow-up her medical problems. Recently diagnosed with colon cancer at the end of an extensive workup for iron deficiency anemia when she was finally able to get a colonoscopy. Fairly large polyp, has been referred to [facility] colorectal surgery for evaluation for resection. Has CT scanning scheduled next week to determine if there are other concerns about disease spread in the abdomen. She is obviously upset about the diagnosis but on the other hand feels good that there is actually now a reason that she has been feeling bad and has been anemic over the past year. No falls, eating well, no current rectal bleeding or melena above her baseline. 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 appropriate uds 06/12, Hyperlipidemia, CAD x 4 stents -- normal Nuc Med stress test 09/2022, GERD, Normal mammogram may 2018 - repeated and normal 02/2020 and normal 06/13 and normal 04/17, Last eye exam 11/2015, Colon Cancer. * Surgical History: t ubal , hysterectomy , francis in right femur from fx femur and slipped and fell , cardiac stents x4 , pacemaker 10/2017, back 08/2020. * Hospitalization/Major Diagno stic Procedure: H [place] 2012, [facility] - 07/22-07/24/2023. * Family History: F ather: . M other: . P aternal Grand Father: . P aternal Grand Mother: . M aternal Grand Father: . M aternal Grand Mother: . Siblings: alive, 2 brothers - ca, diagnosed with Cancer. C estefanyen: alive, COPD, DM, HTN, HLD, diagnosed with Cancer. 4 brother(s) , 5 sister(s) . 1 son(s) , 3 daughter(s) . .? * Social History: S moking A re you a:: nonsmoker. R ecreational drug use: no. Exercise: no. Home smoke detector use: yes. Caffeine: yes, less than 1 soda daily. Living Will: No. Alcohol: no. Travel outside [place]: no. Occupation: retired. lives at home with . * Medications: T aking Aspirin 81 MG [...] *Please review and pick correct strength-formulation from [facility] options. If intended option is not shown, [...] Tablet 1 tab(s) orally once a day , Taking Pravastatin Sodium 80 MG Tablet 1 tab(s) orally once a day , Taking Lisinopril 20 MG Tablet 1 tab(s) orally once a day , Taking Isosorbide Mononitrate ER 60 MG Tablet Extended Release 24 Hour 1 tab(s) orally once a day (in the morning) , Taking Xarelto 20 MG Tablet 1 tab(s) orally once a day (in the evening) , Taking Pantoprazole Sodium 40 MG Tablet Delayed Release 1 tab(s) orally twice a day , Taking HYDROcodone-Acetaminophen 7.5-325 MG Tablet 1 tab(s) orally every 6 hours , Discontinued Doxycycline Monohydrate 100 MG Capsule 1 cap(s) orally 2 times a day , Discontinued Benzonatate 200 MG Capsule 1 cap(s) orally 3 times a day , Medication List reviewed and reconciled with the patient * Allergies: T amiflu: dizziness. Objective: * Vitals: N urse: dw, Pain: 7, Temp: 97.9, RR: 20, HR: 74, BP: 125/80, Ht: 5 ft 3 in, Wt: 224, BMI:39.68. * Examination: E NT/Respiratory: General Appearance : w ell nourished and hydrated, alert.? Ears: a uditory canals normal bilaterally, tympanic membranes normal bilaterally. Nose : n ormal, no lesions. Sinuses : n on tender bilaterally. Oral Cavity n o erythema or exudate seen on pharynx. Neck : n o cervical lymphadenopathy. Heart : R RR, normal S1 S2, no murmurs. Lungs : c oarse upper lobes, faint wheeze on right. Abdomen : s oft, NT/ND, BS present. Skin : c lear without rashes. Assessment: * Assessment: 1. A denocarcinoma, colon - C18.9 (Primary) 2 . A therosclerosis of [place] coronary artery of [place] heart without angina pectoris - I25.10 3 . I dannie deficiency anemia, unspecified iron deficiency anemia type - D50.9 4 . D iastolic CHF, chronic - I50.32 5 . C hronic pain syndrome - G89.4 Plan: * Treatment: 2. A therosclerosis of [place] coronary artery of [place] heart without angina pectoris Notes: Currently stable from heart disease perspective, continues to follow with [facility].Will represent a high risk patient if resection is deemed to be an option by [facility] colorectal surgery 3. I dannie deficiency anemia, unspecified iron deficiency anemia type Notes: Will follow-up in 2 months with blood counts at that point 4. D iastolic CHF, chronic Notes: Currently appears euvolemic, blood pressure under good control, no changes in cardiac or diuretic medications 5. C hronic pain syndrome Notes: Patient has been compliant with our office and [place] regulations r.e. meds. No concerns on my part about diversion or misuse. Labs and Yuri reports reviewed and are appropriate. ? * Follow Up: p rn * * Sign off status: Completed true * Provider: Abdelrahman Mendoza MD Date: 06/13/2024 Generated for Maico mullen/Valentin/Juanasmitting on: 08/10/2024 05:25 PM EDT History and Physical Notes * Examination Category Sub-Category Detail Notes Category Not es ENT/Respiratory Oral Cavity no erythema or exudate se en on pharynx Sinuses : non tender bilateral ly Ears: auditory canals norm al bilaterally, tympanic membranes normal bilaterally Neck : no cervical lymphade nopathy Heart : RRR, normal S1 S2, n o murmurs Lungs : coarse upper lobes, faint wheeze on right Abdomen : soft, NT/ND, BS pres ent General Appearance : well nourished and hydrated, alert Nose : normal, no lesions Skin : clear without rashes
--- OUTSIDE RECORDS SUMMARY | 2024-06-20 13:15 | XMS_ITS | Encounter Summary ---
Author Organization Healthcare Address [address] [place] [address] Care Team Providers Care Health Information Coder Name Role Phone Jose Mendoza MD Primary Care Provider [phone] Reason for Visit * Reason Comments Colon Cancer Encounter Details Date Type Department Care Team (Latest Contact Info) Description 06/20/2024 1:15 PM EDT Office Visit [facility] [address] [place] [address] Mata Smalls MD [address] [place] [address] Malignant neoplasm of ascending colon (CMS/HCC) (Primary Dx); Malignant neoplasm of sigmoid colon (CMS/HCC); 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 (BMI) of 40.0 or higher (CMS/HCC); Dyspnea on exertion; Coronary artery disease involving mi'kmaq coronary artery of mi'kmaq heart without angina pectoris Social History Tobacco Use Types Packs/Day Years Used Date Smoking Tobacco: Never Smokeless Tobacco: Never Tobacco Cessation:Counseling Given: Not Answered Comments Unknown Sex and Gender Information Value Date Recorded Sex Assigned at Not on file Legal Sex Female 8:12 PM EDT Gender Identity Not on file Sexual Orientation Not on file documented as of this encounter Last Filed Vital Signs Vital Sign Reading Time Taken Comments Blood Pressure 167/82 06/20/2024 1:19 PM EDT Pulse 60 06/20/2024 1:19 PM EDT Temperature - - Respiratory Rate - - Oxygen Saturation 96% 06/20/2024 1:19 PM EDT Inhaled Oxygen Concentration - - Weight - - Height - - Body Mass Index - - documented in this encounter Miscellaneous Notes * Clinician Note - Gissell Perez - 06/20/2024 1:15 PM EDT Patient at risk for fall. the following intervention (s) implemented:, Oriented patient/family to exam room, Exam room clear of fall hazards, and Patient instructed not to sit on exam table without staff present * H&P - Mata Smalls MD - 06/20/2024 1:15 PM EDT [facility] Colon & Rectal Surgery 06/20/2024 Chief Complaint: Malignant neoplasm of ascending colon (CMS/HCC) [C18.2] HPI: Gina Stone is a 79 y.o. female with a H heart failure s/p heart catheterization, HTN, arthritis, and HLD that presents for evaluation of colon mass found on Colonoscopy 06/[address] Coehn. Patient states that she has been having vague symptoms for approximately two years. She describes that she has just felt bad and has experienced weight gain. She has noticed swelling in her entire body, and she has become short of breath. Her strength has decreased as well. At times, the patient has felta dull pain on her right side of abdomen. Her bowel movements have not changed over this time period. She has an extensive family history of cancer, and her son is currently undergoing chemo/radiation. She denies smoking. She is not on any anticoagulation and takes Asa 81mg daily. The patient is seeing us today in consultation for the treatment of Malignant neoplasm of ascendingcolon (CMS/HCC) [C18.2]. This consult was requested by Lev Cohen MD . ROS: A complete 14 point review of systems was done with the patient. These are all negative with the exception of what is noted in the HPI. Past Medical History: has a past medical history of Arthritis, High cholesterol, and Hypertension. Past Surgical History: has a past surgical history that includes Hysterectomy; Knee surgery; Cardiac pacemaker placement; Mouth surgery; and Shoulder surgery. Family History: family history is not on file. History of cancer in sister, brother, and son. No history of IBD. History on file reviewed and it is otherwise noncontributory. Social History: [Social History] [Social History] Tobacco Use Smoking status: Never Smokeless tobacco: Never Physical Exam: Vitals: 06/20/24 1319 BP: (!) 167/82 Pulse: 60 SpO2: 96% There is no height or weight on file to calculate BMI. GEN: NAD HEENT: NCAT, EOMI RESP: Equal bilateral chest rise, normal work of breathing CV: RRR, appears well perfused ABD: Soft, nontender, nondistended EXT: No gross deformities MSK: Full ROM in BL UE NEURO: No focal deficits, AOx3 PSYCH: Normal mood and affect PERIANAL/PERINEUM: n/a ALLAN: n/a LABORATORIES AND IMAGING STUDIES: I personally reviewed all the laboratory examinations and imagingstudies below: LABORATORIES AND STUDIES: I personally reviewed all the laboratory examinations and imaging studiesbelow: Lab Results Component Value Date WBC 7.95 06/20/2024 RBC 4.39 06/20/2024 HGB 11.8 06/20/2024 HCT 37.8 06/20/2024 MCV 86 06/20/2024 MCHC 31.2 06/20/2024 RDW 15.9 (H) 06/20/2024 PLT 251 06/20/2024 MPV 12.2 06/20/2024 Lab Results Component Value Date BUN 20 06/20/2024 CL 103 06/20/2024 NA 139 06/20/2024 K 4.9 06/20/2024 TP 7.0 06/20/2024 AST 19 06/20/2024 ALT 17 06/20/2024 Lab Results Component Value Date PREALBUMIN 22.3 06/20/2024 Lab Results Component Value Date CEA 4.3 (H) 06/20/2024 I visualized the recent imaging and reports. === 06/20/24 === CT ABDOMEN PELVIS W IV CONTRAST - Narrative - CLINICAL INDICATION: Colon cancer, staging TECHNIQUE: Multiple axial CT images were obtained from thoracic inlet through pubic symphysis following administration of IV contrast, Omnipaque 300, 100 mL. Reformatted images in the coronal and sagittal planes were generated from the axial data set to facilitate diagnostic accuracy. Total DLP (Dose-Length Product): 1068.95 mGy.cm (accession [id number]), 1068.95 mGy.cm (accession [id number]) Please note: The reported value represents the total of one or more individual components during the CT acquisition on this date and at this time, and as such, the same value may appear in morethan one CT report depending on the interpreting/reporting physicians. COMPARISON: None. FINDINGS: Chest: Lymph Nodes and Mediastinum: No lymphadenopathy by CT size criteria. No mediastinal mass lesions. No suspicious thyroid findings. Cardiovascular: Borderline cardiac size. 2-lead transvenous pacemaker in place. Mitral annular calcification. No pericardial effusion. Three-vessel coronary arterial calcification. Thoracic great vessels are patent. Lungs and Pleura: No suspicious lung nodules to suggest metastatic disease. No pleural effusions orsuspicious thickening. Musculoskeletal and Body Wall: No clearly aggressive bone lesions. Abdomen/Pelvis: Solid Abdominal Organs: Subcentimeter lesion in superior left hemiliver on image 32 of series 4 is too small to definitively characterize. No overt suspicious features on current exam. Given no priors attention on follow-up studies is advised. Abnormal liver morphology with small medial segment, could be congenital. No additional morphologic changes of cirrhosis. No imaging evidence of portal hypertension. Normal size spleen with a few calcified grandmother. No suspicious pancreatic findings. Bilateral indeterminate adrenal nodules; 2 on the left and one on the right. The largest is on the right measuring 24 mm. Atrophic left kidney. Market parenchymal thinning; right kidney measures 11.7 cm and left kidney measures 8.4 cm. 2 a 3 mm nonobstructing calculus interpolar right kidney. No left renal calculi. No ureteral calculi. Mild fullness of the rightcollecting system likely representing reflux. The calcifications seen in the retroperitoneum at thelevel of the aortic bifurcation is likely phleboliths in the adjacent gonadal vein. Tiny presumed bilateral renal cysts. No suspicious renal mass lesions. No left hydronephrosis. GI Tract/Mesentery/Peritoneum: There is a 6.3 cm annular circumferential segmental thickening in the distal ascending colon/hepatic flexure compatible with the known colon cancer. Wall thickness measures up to 14-17 mm. There is associated luminal narrowing (image 93, series 4). No associated upstream obstruction. Mild haziness is seen in the fat on the mesenteric side but no macroscopic extramural extension of tumor. There are multiple up to 5 5 mm short axis lymph nodes along the adjacent draining right colonic vein; largest is seen near the confluence with the SMV on image 84 of series 4. The large and small bowel appear normal in caliber. Sigmoid diverticulosis. No evidence of inflammatory change. No peritoneal carcinomatosis. Pelvic Viscera: No suspicious pelvic mass lesions. Lymph Nodes/Vasculature: No other adenopathy. Atherosclerotic vascular calcifications of the abdominal aorta and iliacs as well as the SMV. No major vessel occlusion. No aneurysms. Free Fluid: No ascites Musculoskeletal and Body Wall: No aggressive or suspicious findings. Diffuse osteopenia. Upper endplate compression of L3 and L1. No underlying metastatic lesion. - Impression - Chest: No metastatic disease to the thorax. Abdomen/Pelvis: Annular carcinoma involving the distal descending colon/hepatic flexure. The subcentimeter draining local lymph nodes. No distant metastatic adenopathy. Tiny subcentimeter indeterminate left liver lesion. Need attention on follow-up imaging. Follow-up with CT is sufficient unless there is additional clinical concern requiring an MRI liver for which EP evaluation of pacemaker will be needed prior to MRI. Multiple indeterminate adrenal nodules. Although not fully characterized on this current exam incidental adenomas are favored over metastatic disease. CRITICAL RESULT: No. COMMUNICATION: Per this written report. Drafted by Nona Hughes MD on 06/21/2024 10:17 AM Final report signed by Nona Hughes MD on 06/21/2024 11:26 AM No results found for this or any previous visit. Assessment/Plan Problem List Items Addressed This Visit Respiratory Dyspnea on exertion Circulatory Coronary artery disease involving mi'kmaq coronary artery of mi'kmaq heart without angina pectoris Relevant Medications isosorbide mononitrate ER (Imdur) 60 MG 24 hr tablet nebivolol (Bystolic) 10 MG tablet Digestive Malignant neoplasm of colon - Primary Relevant Medications metroNIDAZOLE (Flagyl) 500 MG tablet neomycin (Mycifradin) 500 MG tablet Other Relevant Orders Case Request Operating Room: lap right, possible ileostomy (Completed) 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 (BMI) of 40.0 or higher (CMS/HCC) Gina Stone is an 79 year old female with a PMH heart failure s/p heart catheterization, HTN, arthritis, and HLD that presents for evaluation of colon mass found on Colonoscopy 06/07. After discussion with patient, she would like to pursue surgical management of mass. We will obtain labs and CT scans today to further characterize the malignancy. Discussed the risk/benefits of surgery. Surgery will potentially be within the next two weeks. Patient was agreeable to stated plan. -Labs today -CT chest, abdomen, pelvis -Plan for laparoscopic colectomy with potential diverting ileostomy Carlos Pate MS3 I saw and evaluated the patient with the medical/LINK TRAINER MAINTENANCE MAN/PA student. I discussed the case with the medical/LINK TRAINER MAINTENANCE MAN/PA student and agree with the findings and plan as documented. I personally performed the Examand Medical Decision Making. Mata Smalls MD This patient has multiple comorbidities noted in the assessment portion of this note. All of these pre-existing conditions impact their perioperative care as it increases the complexity. The patient will need a consultation to anesthesia preoperatively as well with their referring, primary care provider, and/or other subspecialties prior to proceeding to the OR. Multimodal and multidisciplinary perioperative ERAS/SSI pathways were discussed with the patient which includes their rationale, benefit, and timeline. An educational packet was provided in the clinic today and prescriptions for these provided. The 20' educational discussion regarding these pathways is in addition to our discussion today regarding the surgical procedure. ADDENDUM 06/27/24 CT's obtained post-visit. Images reviewed and discussed with patient. Her path describes two cancer sites. HOWEVER I discussed this with her endoscopist. He does not think the distal tumor is malignant - it was a small subcentimeter poly and thinks there was contamination of the specimen. THEREFORE she only has a right colon cancer. We will plan on close surveillance postoperatively documented in this encounter Plan of Treatment Upcoming Encounters Date Type Department Care Team (Late st Contact Info) Description 08/15/2024 3:00 PM EDT Office Visit [facility] [address] [place] [address] Mata Smalls MD [address] [place] [address] documented as of this encounter Procedures Procedure Name Priority Date/Time Associated Diagnosis Comments CBC W/O DIFFERENTIAL Routine 06/20/2024 2:25 PM EDT Malignant neoplasm of ascending colon (CMS/HCC) PREALBUMIN, PLASMA Routine 06/20/2024 2 :25 PM EDT Malignant neoplasm of ascending colon (CMS/HCC) CEA, SERUM Routine 06/20/2024 2:25 PM EDT Malignant neoplasm of ascending colon (CMS/HCC) COMPREHENSIVE METABOLIC PANEL, PLASMA Routine 06/20/2024 2:25 PM EDT Malignant neoplasm of ascending colon (CMS/HCC) documented in this encounter Results * (ABNORMAL) CBC W/O Differential (06/20/2024 2:25 PM EDT) WBC Count 7.95 3.70 - 10.30 10*3/uL LAB HEMATOLOGY METHOD 06/20/2024 2:53 PM EDT [facility] RBC Count 4.39 3.90 - 5.20 10*6/uL LAB HEMATOLOGY METHOD 06/20/2024 2:53 PM EDT [facility] HGB 11.8 11.2 - 15.7 g/dL LAB HEMATOLOGY METHOD 06/20/2024 2:53 PM EDT [facility] HCT 37.8 34.0 - 45.0 % LAB HEMATOLOGY METHOD 06/20/2024 2:53 PM EDT [facility] Platelet Count 251 155 - 369 10*3/uL LAB HEMATOLOGY METHOD 06/20/2024 2:53 PM EDT [facility] MCV 86 79 - 98 fL LAB HEMATOLOGY METHOD 06/20/2024 2:53 PM EDT [facility] MCH 26.9 26.0 - 32.0 pg LAB HEMATOLOGY METHOD 06/20/2024 2:53 PM EDT [facility] MCHC 31.2 30.7 - 35.5 g/dL LAB HEMATOLOGY METHOD 06/20/2024 2:53 PM EDT [facility] RDW 15.9(H) 11.5 - 14.5 % LAB HEMATOLOGY METHOD 06/20/2024 2:53 PM EDT [facility] MPV 12.2 8.8 - 12.5 fL LAB HEMATOLOGY METHOD 06/20/2024 2:53 PM EDT [facility] nRBC 0.0 <=0.0 per 100 WBCs LAB HEMATOLOGY METHOD 06/20/2024 2:53 PM EDT [facility] Blood Venous blood specimen / Unknown Venipuncture / Unknown 06/20/2024 2:25 PM EDT 06/20/2024 2:49 PM EDT Mata Smalls MD LAB BLOOD ORDERABLES Final Res ult Performing Organization Address [facility] de Phone Number [facility] [address] [place] [address] * (ABNORMAL) CEA, Serum (06/20/2024 2:25 PM EDT) Pathologist [facility] CEA, Serum 4.3(H) <4.0 ng/mL 06/20/2024 3:50 PM EDT [facility] Blood Venous blood specimen / Unknown Venipuncture / Unknown 06/20/2024 2:25 PM EDT 06/20/2024 3:05 PM EDT Narrative [facility] - 06/20/2024 3:50 PM EDT Normal range for smokers: < 5.5 ng/ml Normal range for non-smokers: <=4.0 ng/ml Performed by Shirin electrochemiluminescent immunoassay. Results obtained with different test methods or kits cannot be used interchangeably. us Mata Smalls MD LAB BLOOD ORDERABLES Final Res ult Performing Organization Address City/[facility] Co de Phone Number [facility] [address] [place] [address] * (ABNORMAL) Comprehensive Metabolic Panel, Plasma (06/20/2024 2:25 PM EDT) Glucose, Plasma 95 74 - 99 mg/dL 06/20/2024 3:37 PM EDT [facility] BUN, Plasma 20 8 - 23 mg/dL 06/20/2024 3:37 PM EDT [facility] Creatinine, Plasma 1.21(H) 0.60 - 1.10 mg/dL 06/20/2024 3:37 PM EDT [facility] BUN/Creatinine Ratio 17 06/20/2024 3:37 PM EDT [facility] Sodium, Plasma 139 136 - 145 mmol/L 06/20/2024 3:37 PM EDT [facility] Potassium, Plasma 4.9 3.6 - 4.9 mmol/L 06/20/2024 3:37 PM EDT [facility] Chloride, Plasma 103 97 - 107 mmol/L 06/20/2024 3:37 PM EDT [facility] CO2, Plasma 27 22 - 29 mmol/L 06/20/2024 3:37 PM EDT [facility] Anion Gap 9 6 - 16 mmol/L 06/20/2024 3:37 PM EDT [facility] Total Calcium, Plasma 9.8 8.9 - 10.2 mg/dL 06/20/2024 3:37 PM EDT [facility] Total Protein 7.0 6.3 - 7.9 g/dL 06/20/2024 3:37 PM EDT [facility] Albumin, Plasma 4.0 3.5 - 5.2 g/dL 06/20/2024 3:37 PM EDT [facility] AST, Plasma 19 10 - 35 U/L 06/20/2024 3:37 PM EDT [facility] ALT, Plasma 17 10 - 35 U/L 06/20/2024 3:37 PM EDT [facility] Alkaline Phosphatase, Plasma 85 46 - 142 U/L 06/20/2024 3:37 PM EDT [facility] Total Bilirubin, Plasma 0.4 0.2 - 1.1 mg/dL 06/20/2024 3:37 PM EDT [facility] eGFRcr 45.1 mL/min/1.7 3m*2 06/20/2024 3:37 PM EDT [facility] Comment:Reported eGFRcr in m L/min/1.73m2 is based the CKD-EPI 2020 equation that does not use a race coefficient. Blood Venous blood specimen / Unknown Venipuncture / Unknown 06/20/2024 2:25 PM EDT 06/20/2024 3:05 PM EDT us Mata Smalls MD LAB BLOOD ORDERABLES Final Res ult Performing Organization Address City/[facility]/ZIP Co de Phone Number [facility] [address] [place] [address] * Prealbumin, Plasma (06/20/2024 2:25 PM EDT) Prealbumin, Plasma 22.3 20.0 - 41.0 mg/dL 06/20/2024 3:37 PM EDT [facility] Blood Venous blood specimen / Unknown Venipuncture / Unknown 06/20/2024 2:25 PM EDT 06/20/2024 3:05 PM EDT us Mata Smalls MD LAB BLOOD ORDERABLES Final Res ult Performing Organization Address [facility] Co de Phone Number [facility] [address] [place] [address] documented in this encounter Visit Diagnoses Diagnosis Malignant neoplasm of ascending colon (CMS/HCC)- Primary Malignant neoplasm of ascending colon Malignant neoplasm of sigmoid colon (CMS/HCC) Malignant neoplasm of sigmoid colon 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 (BMI) of 40.0 or higher (CMS/HCC) Dyspnea on exertion Other dyspnea and respiratory abnormality Coronary artery disease involving mi'kmaq coronary artery of mi'kmaq heart without angina pectoris documented in this encounter Additional Health Concerns Assessment Noted Time A fall risk assessment has been complete d for the patient 06/20/2024 1:33 PM EDT A Body Mass Index follow-up plan has been documented for the patient 06/28/2024 4:06 PM EDT documented as of this encounter Care Teams Health Information Coder Relationship Specialty Start Date End Date Jose Mendoza MD [address] [place] [address] PCP - General Internal Medicine 05/23/24 documented as of this encounter
--- OUTSIDE RECORDS SUMMARY | 2024-06-20 15:10 | XMS_ITS | Encounter Summary ---
Author Organization [facility] Address [address] [place] [address] Care Team Providers Care Sales Compensation Analyst Name Role Phone Jose Mendoza MD Primary Care Provider [phone] Reason for Referral * Imaging (Routine) - Closed Specialty Diagnoses / Procedures Referred By Contac t Referred To Contact Radiology Diagnoses Malignant neoplasm of colon, unspecified part of colon (CMS/HCC) Procedures CT Abdomen Pelvis w IV Contrast Mata Smalls MD [address] [address] Phone: tel: fax: Referral ID Status Reason Start Date Expiration Date Visits Re quested Visits Authorized [id number] Closed 06/14/2024 12/14/2025 1 1 * Imaging (Routine) - Closed Specialty Diagnoses / Procedures Referred By Contelvin t Referred To Contact Radiology Diagnoses Malignant neoplasm of colon, unspecified part of colon (CMS/HCC) Procedures CT Chest w IV Contrast Mata Smalls MD [address] [address] Phone: tel: fax: Referral ID Status Reason Start Date Expiration Date Visits Re quested Visits Authorized [id number] Closed 06/14/2024 12/14/2025 1 1 Reason for Visit * Imaging (Routine) - Closed Specialty Diagnoses / Procedures Referred By Contac t Referred To Contact Radiology Diagnoses Malignant neoplasm of colon, unspecified part of colon (CMS/HCC) Procedures CT Abdomen Pelvis w IV Contrast Mata Smalls MD [address] [place] [address] Phone: tel: fax: Referral ID Status Reason Start Date Expiration Date Visits Re quested Visits Authorized [id number] Closed 06/14/2024 12/14/2025 1 1 Encounter Details Date Type Department Care Team (Latest Contact Info) Description 06/20/2024 3:10 PM EDT - 06/20/2024 11:59 PM EDT Hospital Encounter [facility] Radiology [address] [place] [address] Malignant neoplasm of colon, unspecified part of colon (CMS/HCC) Discharge Disposition: Home or Self Care Social History Tobacco Use Types Packs/Day Years Used Date Smoking Tobacco: Never Smokeless Tobacco: Never Comments Unknown Sex and Gender Information Value Date Recorded Sex Assigned at Not on file Legal Sex Female 8:12 PM EDT Gender Identity Not on file Sexual Orientation Not on file documented as of this encounter Medications at Time of Discharge alendronate (Fosamax) 70 MG tablet Take 1 tablet by mouth every 7 days. Wednesday ASPIRIN 81 MG chewable tablet Chew 1 tablet 1 time each day. baclofen (Lioresal) 10 MG tablet Take 1 tablet by mouth as needed. Calcium Carbonate-Vitamin D 250-3.125 MG-MCG tablet Take 1 tablet by mouth every morning. ferrous sulfate 325 (65 Fe) MG tablet Take 1 tablet by mouth 3 times a day with meals. furosemide (Lasix) 40 MG tablet Take 1 tablet by mouth daily. HYDROcodone-acetamin ophen (Picher) 7.5-325 MG tablet Take 1 tablet by mouth every 6 hours. 09/18/2023 isosorbide mononitrate ER (Imdur) 60 MG 24 hr tablet Take 1 tablet by mouth daily. 05/17/2024 lisinopril 20 MG tablet Take 1 tablet by mouth daily. methocarbamol (Robaxin) 500 MG tablet Take 1 tablet by mouth every 6 hours for 5 days. 20 tablet 07/15/2024 naloxone (Narcan) 4 mg/0.1 mL nasal spray 1. Give 1 spray in nostril for no/slow breathing or cannot wake after opioid use 2. Call 911 3. Repeat in other nostril if symptoms continue 1 each 07/15/2024 nebivolol (Bystolic) 10 MG tablet Take 1 tablet by mouth daily. 04/15/2024 ondansetron ODT (Zofran-ODT) 4 MG disintegrating tablet Dissolve 1 tablet on the tongue every 6 hours as needed for nausea or vomiting. 20 tablet 07/15/2024 pantoprazole (Protonix) 40 MG EC tablet Take 1 tablet by mouth 2 times a day. 05/23/2024 pravastatin (Pravachol) 80 MG tablet Take 1 tablet by mouth daily. 05/16/2024 pregabalin (Lyrica) 75 MG capsule Take 1 capsule by mouth 2 times a day. 03/16/2024 rivaroxaban (Xarelto) 10 MG tablet Take 1 tablet by mouth daily for 24 doses. 24 tablet 07/15/2024 Vibegron (Gemtesa) 75 MG tablet Take 75 mg by mouth daily. acetaminophen (Tylenol) 500 MG tablet Take 1 tablet by mouth every 6 hours for 5 days. 20 tablet 07/15/2024 5 lisinopril 40 MG tablet Take 1 tablet by mouth 1 time each day. 5 metroNIDAZOLE (Flagyl) 500 MG tabletIndications:Ma lignant neoplasm of ascending colon (CMS/HCC) Take one tablet at 1pm, 2pm, and 11pm day BEFORE surgery. SSI COLON. 3 tablet 06/20/2024 5 neomycin (Mycifradin) 500 MG tabletIndications:Ma lignant neoplasm of ascending colon (CMS/HCC) Take two tablets (1000 mg) by mouth at 1:00pm, 2:00pm and 11:00pm on the day prior to surgery. SSICOLON 6 tablet 06/20/2024 5 Nutritional Supplements (Impact Advanced Recovery) liquid Drink 2 cartons a day starting 5 days before surgery. SSICOLON. 2500 mL 06/20/2024 5 rivaroxaban (Xarelto) 20 MG tablet Take 1 tablet by mouth 1 time each day with dinner. Take with food. 5 spironolactone (Aldactone) 25 MG tablet Take 1 tablet by mouth daily. 5 Sutab 5947-783-808 MG tablet Take 0.225 g by mouth every morning. 05/25/2024 5 documented as of this encounter Miscellaneous Notes * Thalia Murcia - Consuelo Benitez L - 06/20/2024 3:25 PM EDT Images from the original note were not included. 0446 Caring for Yourself after Contrast Imaging If you had ORAL contrast: ?? You can go back to your normal diet and activities as tolerated. ?? Drink plenty of fluids, unless told otherwise. If you had IV contrast: ?? You can go back to your normal diet and activities as tolerated. ?? Drink plenty of fluids, unless told otherwise. ?? Leave a bandage on the site for 30 minutes (where the IV was inserted or blood was drawn). If you had Intravesical (bladder) contrast: ?? Return to normal diet and activity. What you need to know about delayed reaction to IV contrast What is IV Contrast? ?? Contrast is a dye that is put into your body through an IV. ?? It is used for imaging scans such as CT scans and MRIs. ?? The contrast makes blood vessels, organs and other parts of your body show up better on the scan. What do I need to do after IV contrast? ?? Drink lots of fluids. This will help flush the contrast out of your system. ?? Drink 2-3 extra glasses or bottles of water within 4 hours of your scan. What is a contrast reaction? ?? A contrast reaction is a bad side effect from the contrast dye. ?? It is rare but it does happen. ?? They can be mild - such as sneezing, itching, or hives. ?? They can be severe - such as trouble breathing, throat swelling, and irregular heart beat. When do these reactions happen? ?? They often happen right after the contrast is injected. ?? Some happen hours after going home. Go to the nearest Emergency Department right away if you have any of these symptoms after you leavethe clinic or hospital. ?? Sneezing ?? Itching in your mouth, throat, eyes, ears, or skin ?? Rash or hives ?? Throwing up or stomach sickness ?? High heart rate or ?racing? of your heart ?? Feeling dizzy or woozy ?? Feeling short of breath or like you can?t take a deep breath ?? Feeling very anxious for no other reason It is very important that these reactions be treated. Tell the doctor or nurse that you are having a reaction to IV contrast dye. Do not ignore any sign of a reaction! All reactions must be assessed by a doctor. Call 911 if you are alone and your reaction is more than mild sneezing or itching. If you have a mild reaction, call to speak with a Radiologist, explain that you havehad a contrast reaction, as this needs to be added to your medical record. documented in this encounter Plan of Treatment Upcoming Encounters Date Type Department Care Team (Late st Contact Info) Description 08/15/2024 3:00 PM EDT Office Visit [facility] Multidisciplinary Oncology [facility] [address] [place] [address] Mata Smalls MD [address] [facility] [address] [place] [address] documented as of this encounter Procedures Procedure Name Priority Date/Time Associated Diagnosis Comments CT ABDOMEN PELVIS W IV CONTRAST Routine 06/20/2024 4:45 PM EDT Malignant neoplasm of colon, unspecified part of colon (CMS/HCC) CT CHEST W IV CONTRAST Routine 06/20/2024 4:45 PM EDT Malignant neoplasm of colon, unspecified part of colon (CMS/HCC) POCT CREATININE ISTAT UNSOLICITED RESULTS Routine 06/20/2024 3:44 PM EDT documented in this encounter Results * CT Abdomen Pelvis w IV Contrast (06/20/2024 4:45 PM EDT) Anatomical Region Laterality Modality Abdomen, Pelvis Computed Tomogra phy Impressions 06/21/2024 11:26 AM EDT Chest: No metastatic disease to the thorax. [...] Nona Hughes MD on 06/21/2024 11:26 AM Narrative 06/21/2024 11:26 AM EDT CLINICAL INDICATION: Colon cancer, staging TECHNIQUE: Multiple axial CT images were obtained from thoracic inlet through pubic symphysis following administration of IV contrast, Omnipaque 300, 100 mL. Reformatted images in the coronal and sagittal planes were generated from the axial data set to facilitate diagnostic accuracy. Total DLP (Dose-Length Product): 1068.95 mGy.cm (accession [id number]), 1068.95 mGy.cm (accession [id number]) Please note: The reported value represents the total of one or more individual components during the CT acquisition on this date and at this time, and as such, the same value may appear in more than one CT report depending on the interpreting/reporting [...] to suggest metastatic disease. No pleural effusions or suspicious thickening. Musculoskeletal and Body Wall: No clearly [...] No ureteral calculi. Mild fullness of the right collecting system likely representing reflux. The calcifications seen in the retroperitoneum at the level of the aortic bifurcation is likely phleboliths [...] L3 and L1. No underlying metastatic lesion. Procedure Note Nona Hughes MD - 06/21/2024 CLINICAL INDICATION: Colon cancer, staging TECHNIQUE: Multiple axial CT images were obtained from thoracic inlet through pubicsymphysis following administration of IV contrast, Omnipaque 300, 100 mL.Reformatted images in the coronal and sagittal planes were generated fromthe axial data set to facilitate diagnostic accuracy. Total DLP (Dose-Length Product): 1068.95 mGy.cm (accession [id number]),1068.95 mGy.cm (accession [id number]) Please note: The reported valuerepresents the total of one or more individual components during the CTacquisition on this date and at this time, and as such, the same value mayappear in more than one CT report depending on the interpreting/reportingphysicians. COMPARISON: None. FINDINGS: Chest: Lymph Nodes and Mediastinum: No lymphadenopathy by CT size criteria. Nomediastinal mass lesions. No suspicious thyroid findings. Cardiovascular: Borderline cardiac size. 2-lead transvenous pacemaker inplace. Mitral annular calcification. No pericardial effusion. Three-vesselcoronary arterial calcification. Thoracic great vessels are patent. Lungs and Pleura: No suspicious lung nodules to suggest metastaticdisease. No pleural effusions or suspicious thickening. Musculoskeletal and Body Wall: No clearly aggressive bone lesions. Abdomen/Pelvis: Solid Abdominal Organs: Subcentimeter lesion in superior left hemiliver onimage 32 of series 4 is too small to definitively characterize. No overtsuspicious features on current exam. Given no priors attention onfollow-up studies is advised. Abnormal liver morphology with small medialsegment, could be congenital. No additional morphologic changes ofcirrhosis. No imaging evidence of portal hypertension. Normal size spleenwith a few calcified grandmother. No suspicious pancreatic findings. Bilateral indeterminate adrenalnodules; 2 on the left and one on the right. The largest is on the rightmeasuring 24 mm. Atrophic left kidney. Market parenchymal thinning; rightkidney measures 11.7 cm and left kidney measures 8.4 cm. 2 a 3 mmnonobstructing calculus interpolar right kidney. No left renal calculi. Noureteral calculi. Mild fullness of the right collecting system likelyrepresenting reflux. The calcifications seen in the retroperitoneum at thelevel of the aortic bifurcation is likely phleboliths in the adjacentgonadal vein. Tiny presumed bilateral renal cysts. No suspicious renalmass lesions. No left hydronephrosis. GI Tract/Mesentery/Peritoneum: There is a 6.3 cm annular circumferentialsegmental thickening in the distal ascending colon/hepatic flexurecompatible with the known colon cancer. Wall thickness measures up to14-17 mm. There is associated luminal narrowing (image 93, series 4). Noassociated upstream obstruction. Mild haziness is seen in the fat on themesenteric side but no macroscopic extramural extension of tumor. Thereare multiple up to 5 5 mm short axis lymph nodes along the adjacentdraining right colonic vein; largest is seen near the confluence with theSMV on image 84 of series 4. The large and small bowel appear normal in caliber. Sigmoiddiverticulosis. No evidence of inflammatory change. No peritonealcarcinomatosis. Pelvic Viscera: No suspicious pelvic mass lesions. Lymph Nodes/Vasculature: No other adenopathy. Atherosclerotic vascularcalcifications of the abdominal aorta and iliacs as well as the SMV. Nomajor vessel occlusion. No aneurysms. Free Fluid: No ascites Musculoskeletal and Body Wall: No aggressive or suspicious findings.Diffuse osteopenia. Upper endplate compression of L3 and L1. No underlyingmetastatic lesion. IMPRESSION: Chest: No metastatic disease to the thorax. 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 The subcentimeter draining local lymph nodes. Nodistant metastatic adenopathy. Tiny subcentimeter indeterminate left liver lesion. Need attention onfollow-up imaging. Follow-up with CT is sufficient unless there isadditional clinical concern requiring an MRI liver for which EP evaluationof pacemaker will be needed prior to MRI. Multiple indeterminate adrenal nodules. Although not fully characterizedon this current exam incidental adenomas are favored over metastaticdisease. CRITICAL RESULT: No. COMMUNICATION: Per this written report. Drafted by Nona Hughes MD on 06/21/2024 10:17 AM Final report signed by Nona Hughes MD on 06/21/2024 11:26 AM us Mata Smalls MD IMG CT PROCEDURES Final Result * CT Chest w IV Contrast (06/20/2024 4:45 PM EDT) Anatomical Region Laterality Modality Chest Computed Tomogra phy Impressions 06/21/2024 11:26 AM EDT Chest: No metastatic disease to the thorax. [...] Nona Hughes MD on 06/21/2024 11:26 AM Narrative 06/21/2024 11:26 AM EDT CLINICAL INDICATION: Colon cancer, staging TECHNIQUE: Multiple axial CT images were obtained from thoracic inlet through pubic symphysis following administration of IV contrast, Omnipaque 300, 100 mL. Reformatted images in the coronal and sagittal planes were generated from the axial data set to facilitate diagnostic accuracy. Total DLP (Dose-Length Product): 1068.95 mGy.cm (accession [id number]), 1068.95 mGy.cm (accession [id number]) Please note: The reported value represents the total of one or more individual components during the CT acquisition on this date and at this time, and as such, the same value may appear in more than one CT report depending on the interpreting/reporting [...] to suggest metastatic disease. No pleural effusions or suspicious thickening. Musculoskeletal and Body Wall: No clearly [...] No ureteral calculi. Mild fullness of the right collecting system likely representing reflux. The calcifications seen in the retroperitoneum at the level of the aortic bifurcation is likely phleboliths [...] L3 and L1. No underlying metastatic lesion. Procedure Note Nona Hughes MD - 06/21/2024 CLINICAL INDICATION: Colon cancer, staging TECHNIQUE: Multiple axial CT images were obtained from thoracic inlet through pubicsymphysis following administration of IV contrast, Omnipaque 300, 100 mL.Reformatted images in the coronal and sagittal planes were generated fromthe axial data set to facilitate diagnostic accuracy. Total DLP (Dose-Length Product): 1068.95 mGy.cm (accession [id number]),1068.95 mGy.cm (accession [id number]) Please note: The reported valuerepresents the total of one or more individual components during the CTacquisition on this date and at this time, and as such, the same value mayappear in more than one CT report depending on the interpreting/reportingphysicians. COMPARISON: None. FINDINGS: Chest: Lymph Nodes and Mediastinum: No lymphadenopathy by CT size criteria. Nomediastinal mass lesions. No suspicious thyroid findings. Cardiovascular: Borderline cardiac size. 2-lead transvenous pacemaker inplace. Mitral annular calcification. No pericardial effusion. Three-vesselcoronary arterial calcification. Thoracic great vessels are patent. Lungs and Pleura: No suspicious lung nodules to suggest metastaticdisease. No pleural effusions or suspicious thickening. Musculoskeletal and Body Wall: No clearly aggressive bone lesions. Abdomen/Pelvis: Solid Abdominal Organs: Subcentimeter lesion in superior left hemiliver onimage 32 of series 4 is too small to definitively characterize. No overtsuspicious features on current exam. Given no priors attention onfollow-up studies is advised. Abnormal liver morphology with small medialsegment, could be congenital. No additional morphologic changes ofcirrhosis. No imaging evidence of portal hypertension. Normal size spleenwith a few calcified grandmother. No suspicious pancreatic findings. Bilateral indeterminate adrenalnodules; 2 on the left and one on the right. The largest is on the rightmeasuring 24 mm. Atrophic left kidney. Market parenchymal thinning; rightkidney measures 11.7 cm and left kidney measures 8.4 cm. 2 a 3 mmnonobstructing calculus interpolar right kidney. No left renal calculi. Noureteral calculi. Mild fullness of the right collecting system likelyrepresenting reflux. The calcifications seen in the retroperitoneum at thelevel of the aortic bifurcation is likely phleboliths in the adjacentgonadal vein. Tiny presumed bilateral renal cysts. No suspicious renalmass lesions. No left hydronephrosis. GI Tract/Mesentery/Peritoneum: There is a 6.3 cm annular circumferentialsegmental thickening in the distal ascending colon/hepatic flexurecompatible with the known colon cancer. Wall thickness measures up to14-17 mm. There is associated luminal narrowing (image 93, series 4). Noassociated upstream obstruction. Mild haziness is seen in the fat on themesenteric side but no macroscopic extramural extension of tumor. Thereare multiple up to 5 5 mm short axis lymph nodes along the adjacentdraining right colonic vein; largest is seen near the confluence with theSMV on image 84 of series 4. The large and small bowel appear normal in caliber. Sigmoiddiverticulosis. No evidence of inflammatory change. No peritonealcarcinomatosis. Pelvic Viscera: No suspicious pelvic mass lesions. Lymph Nodes/Vasculature: No other adenopathy. Atherosclerotic vascularcalcifications of the abdominal aorta and iliacs as well as the SMV. Nomajor vessel occlusion. No aneurysms. Free Fluid: No ascites Musculoskeletal and Body Wall: No aggressive or suspicious findings.Diffuse osteopenia. Upper endplate compression of L3 and L1. No underlyingmetastatic lesion. IMPRESSION: Chest: No metastatic disease to the thorax. 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 The subcentimeter draining local lymph nodes. Nodistant metastatic adenopathy. Tiny subcentimeter indeterminate left liver lesion. Need attention onfollow-up imaging. Follow-up with CT is sufficient unless there isadditional clinical concern requiring an MRI liver for which EP evaluationof pacemaker will be needed prior to MRI. Multiple indeterminate adrenal nodules. Although not fully characterizedon this current exam incidental adenomas are favored over metastaticdisease. CRITICAL RESULT: No. COMMUNICATION: Per this written report. Drafted by Nona Hughes MD on 06/21/2024 10:17 AM Final report signed by Nona Hughes MD on 06/21/2024 11:26 AM Mata Smalls MD IMG CT PROCEDURES Final Result * (ABNORMAL) POCT creatinine (06/20/2024 3:44 PM EDT) Creatinine, Point of Care 1.4(H) 0.6 - 1.1 mg/dL 06/20/2024 3:47 PM EDT [facility] POCT eGFR 38 mL/min/1. 73m*2 06/20/2024 3:47 PM EDT [facility] [employer] ID Consuelo Benitez 06/20/2024 3:47 PM EDT [facility] Device ID [id number] 06/20/2024 3:47 PM EDT [facility] Comment 06/20/2024 3:47 PM EDT [facility] Comment:Testing performed on i-STAT at the point of care. Reported eGFRcr in mL/min/1.73m2 is based the CKD-EPI 2020 equation that does not use a race coefficient. Blood Venous blood specimen / Unknown 06/20/2024 3:44 PM EDT 06/20/2024 3:47 PM EDT us Generic Provider Poct LAB POINT OF CARE TEST DOCKED DEVICE UNSOLICITED RESULTS Final Result [facility] [address] [facility] [address] [place] [address] documented in this encounter Visit Diagnoses Diagnosis Malignant neoplasm of colon, unspecified part of colon (CMS/HCC) documented in this encounter Administered Medications Inactive Administered Medications - up to 3 most recent administrations Medication Order MAR Action Action Date Dose Rate Site barium sulfate (Readi-Cat 2) 2 % suspension 450 mL 450 mL, Oral, Once in imaging, 1 dose, Starting on Wed06/20/24 at 1524, Until Wed06/20/24 at 1547, Routine, Imaging Protocol Orders Given 06/20/2024 3:47 PM EDT 450 mL iohexol (OMNIPaque) 300 MG/ML injection 100 mL 100 mL, Intravenous, Once in imaging, 1 dose, Starting on Wed06/20/24 at 1524, Until 06/20/24 at 1638, Routine, Imaging Protocol Orders Given 06/20/2024 4:38 PM EDT 100 mL documented in this encounter Additional Health Concerns Assessment Noted Time A fall risk assessment has been complete d for the patient 06/20/2024 1:33 PM EDT A Body Mass Index follow-up plan has been documented for the patient 06/28/2024 4:06 PM EDT documented as of this encounter Care Teams Sales Compensation Analyst Relationship Specialty Start Date End Date Jose Mendoza MD [address] [place] [address] [place] [address] PCP - General Internal Medicine 05/23/24 documented as of this encounter
--- OUTSIDE RECORDS SUMMARY | 2024-06-22 13:15 | XMS_ITS | Encounter Summary ---
Author Organization Healthcare Address [address] [place] [address] Care Team Providers Care Quiller Tender Name Role Phone Jose Mendoza MD Primary Care Provider [phone] Encounter Details Date Type Department Care Team (Latest Contact Info) Description 06/22/2024 1:15 PM EDT Pre-Admission Testing [facility] Pre-op [facility] [address] [place] [id number] Preop testing (Primary Dx) Anesthesia Record Procedure Summary Procedure Name Responsible Anesthesiologist Anesthesia Start Time Anesthesia Stop Time laparoscopic right colectomy Richy Smalls MD 07/10/24 1522 07/10/24 1816 Events Date Time Event Comment 07/10/2024 1414 1521 In Room 1522 An Start The patient was reevaluated immediately before sedation and remains eligible for anesthesia plan. 1522 An Start Data 1522 ANPATVER 1529 An Induction The patient was reevaluated immediately before moderate or deep sedation use and before anesthesia induction. 1539 An Intubation 1539 Anesthesia Ready 1610 Magnet Placed 1616 Proc Start 1756 Proc Fin 1804 An Extubation 1806 an stop data 1807 Out of Room 1815 Handoff to Receiving I compl eted my handoff to the receiving clinician during which we: 1. Identified the patient 2. Identified the responsible provider 3. Reviewed the pertinent medical history 4. Discussed the surgical course 5. Reviewed intra-op anesthesia management and issues during anesthesia 6. Set expectations for post-procedure period 7. Allowed opportunity for questions and acknowledgement of understanding. 1815 An Stop Meds * Agents No agents on file. * Blood No blood administrations on file. Lines, Drains, and Airways Type Details Placement Removal Wound 07/10/24; 173; N; Y es; Surgical; Laparoscopic; Umbilicus 07/10/24 173 by Viral Cardozo RN Peripheral IV Placement Date: 06/22 11/16; Placement Time: 1300; Catheter Size: 20 G; Orientation: Posterior, Right; Location: Hand; Site Prep: Chlorhexidine ; Local Anesth: [place]; Technique: Anatomical landmarks; Inserted by: Amando; Insertion Attempts: 1; Patient Tolerance: Tolerated well; Removal Date: 07/11/24; Removal Time: 1810; Removal Reason: Per patient/family request 07/10/24 1300 by Mercedez Bowman RN 07/11/24 1810 by Bambi Collazo RN Epidural Placement Date: 06/22 11/16; Placement Time: 1445 (created via procedure documentation); Removal Date: 07/12/24 07/10/24 1445 by Damir Pulido MD 07/12/24 0000 by Fiordaliza George RN ETT Placement Date: 06/22 11/16; Placement Time: 1539 (created via procedure documentation); Mask Ventilation: 0; Technique: Video laryngoscopy; Type: ETT - single; Single Lumen Tube Size: 7 mm; Cuffed: Yes; Laryngoscope: Adelfo; Blade Size: 3; Location: Oral; Grade View: Grade I; Insertion Attempts: 1; Placement Verification: Auscultation, Capnometry; Airway Comments: Atraumatic. No change to dentition. ; Placed by: Resident ; Removal Date: 07/10/24; Removal Time: 18007/10/24 1539 by Richy Smalls MD 07/10/24 1804 by Vangie Barney MANAGER IT SECURITY, DNP Urethral Catheter Placement Date: 06/22 11/16; Placement Time: 1557; Inserted by: Viral Cardozo RN; Type: Single lumen, Temperature probe, Non-latex; Size: 16 Fr.; Balloon Size: 10 mL; Urine Returned: Yes; Removal Date: 07/12/24; Removal Time: 0907/10/24 1557 by Viral Cardozo RN 07/12/24 0929 by Bambi Collazo RN Arterial Line Placement Date: 06/22 11/16; Placement Time: 1604 (created via procedure documentation); Size: 20 G; Orientation: Right; Location: Radial; Inserted by: Resident; Securement: Taped; Patient Tolerance: Tolerated well; Removal Date: 07/10/24; Removal Time: 191207/10/24 160 by Richy Smalls MD 07/10/241912 by Mary Claudio RN Peripheral IV Placement Date: 06/22 11/16; Placement Time: 1605 (created via procedure documentation); Catheter Size: 16 G; Orientation: Left; Location: Hand; Local Anesth: Injectable; Technique: Anatomical landmarks; Inserted by: Richy Smalls MD; Insertion Attempts: 1; Removal Date: 07/14/24; Removal Time: 39907/10/24 160 by Richy Smalls MD 07/14/24399 by Fiordaliza George RN documented in this encounter Social History Tobacco Use Types Packs/Day Years Used Date Smoking Tobacco: Never Passive Smoke Exposure: Never Smokeless Tobacco: Never Tobacco Cessation:Counseling Given: Not Answered Alcohol Use Standard Drinks/Week Comments Not Currently 0 (1 standard drink = 0.6 oz pur e alcohol) Comments No Sex and Gender Information Value Date Recorded Sex Assigned at Not on file Legal Sex Female 8:12 PM EDT Gender Identity Not on file Sexual Orientation Not on file documented as of this encounter Last Filed Vital Signs Vital Sign Reading Time Taken Comments Blood Pressure - - Pulse - - Temperature - - Respiratory Rate - - Oxygen Saturation - - Inhaled Oxygen Concentration - - Weight 105 kg (232 lb) 06/22/2024 12:21 PM EDT Height 160 cm (5' 3 ) 06/22/2024 12:21 PM EDT Body Mass Index 41.1 06/22/2024 12:21 PM EDT documented in this encounter Miscellaneous Notes * PAT Evaluation Note - Gifty Tinoco PA - 06/22/2024 1:15 PM EDT HPI Gina Stone is a 79 y.o. female who presents with Pre-op Diagnosis * Malignant neoplasm of colon, unspecified part of colon (CMS/HCC) [C18.9] now scheduled for lap right, possible ileostomy (N/A). Date scheduled is 07/10/2024. PMH: PONV, CAD s/p stents /2017, recent heart cath nonflow limiting CAD, CHF, HTN, arthritis, hx of provoked DVT, and HLD that presents for evaluation of colon mass found on Colonoscopy 06/07by Dr. Cohen. Most recent EF 61-65% 10/28/23 Medical History[1] Family History[2] Social History[3] SURGICAL HISTORY: Surgical History[4] Allergies[5] MEDICATIONS: Current Outpatient Medications: alendronate, Take 1 tablet by mouth. aspirin, Chew 1 tablet 1 time each day. baclofen, Take 1 tablet by mouth 3 times a day. Calcium Carbonate-Vitamin D, Take 1 tablet by mouth. ferrous sulfate, Take 1 tablet by mouth 3 times a day with meals. furosemide, Take 1 tablet by mouth daily. HYDROcodone-acetaminophen, Take 1 tablet by mouth every 6 hours. isosorbide mononitrate ER, Take 1 tablet by mouth daily. lisinopril, Take 1 tablet by mouth 1 time each day. metroNIDAZOLE, Take one tablet at 1pm, 2pm, and 11pm day BEFORE surgery. SSI COLON. nebivolol, Take 1 tablet by mouth daily. neomycin, Take two tablets (1000 mg) by mouth at 1:00pm, 2:00pm and 11:00pm on the day prior to surgery. SSICOLON Impact Advanced Recovery, Drink 2 cartons a day starting 5 days before surgery. SSICOLON. pantoprazole, Take 1 tablet by mouth daily. pravastatin, Take 1 tablet by mouth daily. pregabalin, Take 1 capsule by mouth 2 times a day. spironolactone, Take 1 tablet by mouth daily. Sutab, 0.225 g. ROS Anesthesia: Date of last anesthetic: Last GA 2 weeks ago - no GA issues. history of previous anesthesia. Does not have a history of anesthetic complications and obstructivesleep apnea. Anesthesia ROS additional comments: + PONV Cardiovascular: Does not have angina, murmur, orthopnea, past CO, PVD or syncope. Cardio additional comments: OSH Card note 03/30/24 (CE) + CAD stents LAD LCx and D1 2014 mild CAD, 2018 mild CAD with 40% RCA and 60% ostial PLB/circumflex + CHF + [place] chronic / stable for last 2 years + Peripheral edema + SSS s/p pacemaker + HTN - well controlled + HLD + mild to moderate mitral regurgitation + carotid artery disease - mild + precordial CP - pressure and heaviness - LCH showed nonflow-limited CAD Previous interrogation 01/31/2024 showed good battery life and lead functions with no cardiac events. Recent left heart cath 03/21/2024 showed nonflow limiting coronary disease. Widely patent LAD, diagonal and circumflex stents. 30% RCA and OM 2 disease. LVEF 65% Fu/u 6 months She lives in a trailer, has a ramp up to [employer]. She can do her own ADL's, light housework/cook. [employer] cart at [employer] Respiratory: Negative respiratory ROS.Does not have home oxygen. Has not had an upper respiratory infection in last 30 days. HEENT: Does not have chipped teeth or loose teeth.Does not have temporomandibular joint syndrome. HEENT additional comments: + hx of esophageal stretching ~ 1 month ago. + 4 dental implants lower + top plate + hard of hearing. Neurological: Negative neuro ROS. Musculoskeletal: Does not have cervical spine limited mobility. Musc/Skel/Integ additional comments: + arthritis + chronic lower back pain + gets steroid inj in her shoulder (not recently) Integumentary: Negative skin ROS. Gastrointestinal: Does not have hernia or pancreatitis. Does not have cirrhosis or hepatitis. Does not have weight loss. GI/ additional comments: + GERD - well controlled + colon cancer + gall stones + remote hx of ulcers + obesity Genitourinary: Negative ROS. Hematological/Lymphatic: History of no pulmonary embolism. no history of chemotherapy no history of radiation Does not have MRSA or tuberculosis. Hem/Lymph ROS additional comments: + chronic anemia - hx of infusions or blood and and oral iron. Last transfusions were ~ 6-7 months ago + remote hx of DVT after back surgery was on Xarelto for PAF d/c'd 3-4 months ago due to bleeding ASA 81mg Endocrine/Metabolic: Negative endocrine ROS. Lab Results Component Value Date WBC 7.95 06/20/2024 HGB 11.8 06/20/2024 HCT 37.8 06/20/2024 MCV 86 06/20/2024 PLT 251 06/20/2024 Lab Results Component Value Date GLUCOSE 95 06/20/2024 BUN 20 06/20/2024 CREATININE 1.21 (H) 06/20/2024 BCR 17 06/20/2024 NA 139 06/20/2024 K 4.9 06/20/2024 CL 103 06/20/2024 CO2 27 06/20/2024 ALBUMIN 4.0 06/20/2024 ALKPHOS 85 06/20/2024 BILITOT 0.4 06/20/2024 Lab Results Component Value Date HGBA1C 4.5 (L) 03/21/2024 No results found for: INR , PROTIME OSH LHC 03/21/2024 (CE) Nonflow-limiting coronary disease Widely patent LAD, diagonal, and circumflex stents. 30% RCA and OM 2 disease. LVEF 65% Intervention No interventions have been documented. Nuclear stress 11/29/23 low risk ECHO 10/28/23 Left ventricular systolic function is normal. Left ventricular ejection fraction appears to be 61 - 65%. Left ventricular wall thickness is consistent with mild concentric hypertrophy. Left ventricular diastolic function is consistent with (grade I) impaired relaxation. There is mild tomoderate mitral regurgitation present. Estimated right ventricular systolic pressure from tricuspidregurgitation is normal (<35 mmHg). OSH Device interrogation 01/31/2024 ([facility]) Medtronic PPM Battery life 8.4 years Mode AAIR<=>DDDR Mode switch 171 bmp [employer] <0.1% (MVP on) AP 41.3% Patient has a Medtronic ( ) dual chamber pacemaker. Recommendations: Heart rate dependency on pacemaker unlikely. Place dispersion patch on contralateral thigh to device and use of electrocautery in short bursts. If heart rate deceleration or pacemaker inhibition is observed during the use of electrocautery, recommend placement of magnet over devicefor remainder of procedure. Pre-procedural CIED evaluation based on available documentation dated within the last six months for perioperative device management recommendations. Support report can be found in [employer] file. Visit Vitals Ht 1.6 m (5' 3 ) Wt 105 kg (232 lb) BMI 41.10 kg/m?? Smoking Status Never BSA 2.16 m?? Physical Exam Anesthesia Plan ASA 3 Anesthesia technique(s) discussed with the patient/family: general Comment: PA-C phone screen. BENITO Andrade [1] Past Medical History: Diagnosis Date Arthritis High cholesterol Hypertension [2] No family history on file. [3] Social History Tobacco Use Smoking status: Never Smokeless tobacco: Never [4] Past Surgical History: Procedure Laterality Date CARDIAC PACEMAKER PLACEMENT HYSTERECTOMY KNEE SURGERY MOUTH SURGERY SHOULDER SURGERY [5] Not on File * Preprocedure Instructions - Gifty Tinoco PA - 06/22/2024 1:15 PM EDT Home Medication Instructions Current Medications Medication Instructions ASPIRIN 81 MG chewable tablet Take morning of surgery baclofen (Lioresal) 10 MG tablet Take as needed Calcium Carbonate-Vitamin D 250-3.125 MG-MCG tablet Hold day of surgery ferrous sulfate 325 (65 Fe) MG tablet Hold day of surgery furosemide (Lasix) 40 MG tablet Hold day of surgery HYDROcodone-acetaminophen ([place]) 7.5-325 MG tablet Take morning of surgery isosorbide mononitrate ER (Imdur) 60 MG 24 hr tablet Take morning of surgery lisinopril 40 MG tablet Hold day of surgery nebivolol (Bystolic) 10 MG tablet Take morning of surgery pantoprazole (Protonix) 40 MG EC tablet Take morning of surgery pravastatin (Pravachol) 80 MG tablet Take night before surgery pregabalin (Lyrica) 75 MG capsule Take morning of surgery Sutab 0657-351-293 MG tablet Hold day of surgery General Preoperative Instructions You will be called the business day before surgery with your arrival time No food, no thick or dark liquids after midnight the night before the surgery. Please drink clear liquids meaning; water, Gatorade/pedialyte or apple juice until 2 hours prior toarrival time surgery day. No alcohol or smoking prior to surgery Arrive on time to avoid delays Parking/Registration procedure explained You MUST have a responsible adult available for transport to and from hospital Visitation policy for the day of surgery reviewed Bring insurance card, photo ID, along with power of managing attorney, guardianship or advanced directives if applicable Do not bring money, jewelry or other valuables Hibiclens bathing instructions reviewed if applicable Notify surgeon of fever, illness, any changes or if you decide not to have surgery documented in this encounter Plan of Treatment Upcoming Encounters Date Type Department Care Team (Late st Contact Info) Description 08/15/2024 3:00 PM EDT Office Visit [facility] Multidisciplinary Oncology Clinic [address] [place] [address] Mata Smalls MD [address] [place] [address] documented as of this encounter Results * CARDIAC DEVICE CHECK - IN CLINIC - PACEMAKER - INTERROGATION ONLY (06/23/2024 11:02 AM EDT) Anatomical Region Laterality Modality Other Narrative 06/23/2024 1:02 PM EDT [facility] EP-Device [facility]: Pre-operative CIED Report Assessment and Martina-Procedural Reommendations: Name: Gina Stone Date: 06/23/2024 : 1945 Age: 79 y.o. Patient has a Medtronic ( ) dual chamber pacemaker. Recommendations: Heart rate dependency on pacemaker unlikely. Place dispersion patch on contralateral thigh to device and use of electrocautery in short bursts. If heart rate deceleration or pacemaker inhibition is observed during the use of electrocautery, recommend placement of magnet over device for remainder of procedure. Pre-procedural CIED evaluation based on available documentation dated within the last six months for perioperative device management recommendations. Support report can be found in [employer] file. Gifty OLIVER CV IMPLANTABLE CARDIAC DEV ICE PROCEDURES Final Result documented in this encounter Visit Diagnoses Diagnosis Preop testing- Primary Unspecified pre-operative examination Preop testing Unspecified pre-operative examination documented in this encounter Additional Health Concerns Assessment Noted Time A fall risk assessment has been complete d for the patient 06/20/2024 1:33 PM EDT A Body Mass Index follow-up plan has been documented for the patient 06/28/2024 4:06 PM EDT documented as of this encounter Care Teams Quiller Tender Relationship Specialty Start Date End Date Jose Mendoza MD [address] [place] [address] PCP - General Internal Medicine 05/23/24 documented as of this encounter
--- OUTSIDE RECORDS SUMMARY | 2024-06-23 10:40 | XMS_ITS | Encounter Summary ---
Author Organization Healthcare Address [address] [place] [address] Care Team Providers Care Ferry Captain Name Role Phone Jose Mendoza MD Primary Care Provider [phone] Encounter Details Date Type Department Care Team (Latest Contact Info) Description 06/23/2024 10:40 AM EDT - 06/23/2024 11:59 PM EDT Hospital Encounter Cardiac Imaging [address] [place] [address] Preop testing Discharge Disposition: Home or Self Care Social History Tobacco Use Types Packs/Day Years Used Date Smoking Tobacco: Never Passive Smoke Exposure: Never Smokeless Tobacco: Never Alcohol Use Standard Drinks/Week Comments Not Currently [...] 1 tablet by mouth daily. HYDROcodone-acetamin ophen ([place]) 7.5-325 MG tablet Take 1 tablet by [...] prior to surgery. SSICOLON 6 tablet 06/20/2024 Nutritional Supplements (Impact Advanced Recovery) liquid Drink 2 cartons a day starting 5 days before surgery. SSICOLON. 2500 mL 06/20/2024 rivaroxaban (Xarelto) 20 MG tablet Take 1 tablet by mouth 1 time each day with dinner. Take with food. Sutab 5466-539-646 MG tablet Take 0.225 g by mouth every morning. 05/25/2024 5 documented as of this encounter Plan of Treatment Upcoming Encounters Date Type Department Care Team (Late st Contact Info) Description 08/15/2024 3:00 PM EDT Office Visit [facility] Multidisciplinary Oncology Clinic [address] [place] [address] Mata Smalls MD [address] [place] [address] documented as of this encounter Procedures Procedure Name Priority Date/Time Associated Diagnosis Comments CARDIAC DEVICE CHECK - IN CLINIC - PACEMAKER - INTERROGATION ONLY Routine 06/23/2024 11:02 AM EDT Preop testing documented in this encounter Results * CARDIAC DEVICE CHECK - IN CLINIC - PACEMAKER - INTERROGATION ONLY (06/23/2024 11:02 AM EDT) Anatomical Region Laterality Modality Other Narrative 06/23/2024 1:02 PM EDT [facility] EP-Device [facility]: Pre-operative CIED Report Assessment [...] recommendations. Support report can be found in [employer] file. Gifty OLIVER CV IMPLANTABLE CARDIAC DEV ICE PROCEDURES Final Result documented in this encounter Visit Diagnoses Diagnosis Preop testing Unspecified pre-operative examination documented in this encounter Additional Health Concerns Assessment Noted Time A fall risk assessment has been complete d for the patient 06/20/2024 1:33 PM EDT A Body Mass Index follow-up plan has been documented for the patient 06/28/2024 4:06 PM EDT documented as of this encounter Care Teams Ferry Captain Relationship Specialty Start Date End Date Jose Mendoza MD [address] [place] [address] PCP - General Internal Medicine 05/23/24 documented as of this encounter
--- OUTSIDE RECORDS SUMMARY | 2024-07-10 11:10 | XMS_ITS | Encounter Summary ---
Author Organization [facility] Address [address] [place] [address] Care Team Providers Care Oyster Picker Name Role Phone Jose Mendoza MD Primary Care Provider [phone] Reason for Referral * Consultation (Routine) - Authorized Specialty Diagnoses / Procedures Referred By Sangeetha douglas Referred To Contact Occupational Therapy Diagnoses Malignant neoplasm of ascending colon (CMS/HCC) Mata Smalls MD [address] [address] Phone: tel: fax: Referral ID Status Reason Start Date Expiration Date Visits Requested Visits Authorized [id number] Authorized Consult and Treat 07/15/2024 01/14/2026 1 1 * Consultation (Routine) - Authorized Specialty Diagnoses / Procedures Referred By Sangeetha douglas Referred To Contact Physical Therapy Diagnoses Malignant neoplasm of ascending colon (CMS/HCC) Mata Smalls MD [address] [address] Phone: tel: fax: Referral ID Status Reason Start Date Expiration Date Visits Requested Visits Authorized [id number] Authorized Consult and Treat 07/15/2024 01/14/2026 1 1 * Consultation (Routine) - Authorized Specialty Diagnoses / Procedures Referred By Contac t Referred To Contact Occupational Therapy Diagnoses Malignant neoplasm of ascending colon (CMS/HCC) Mata Smalls MD [address] [address] Phone: tel: fax: Referral ID Status Reason Start Date Expiration Date Visits Requested Visits Authorized [id number] Authorized Consult and Treat 07/14/2024 01/13/2026 1 1 * Consultation (Routine) - Authorized Specialty Diagnoses / Procedures [facility] Referred To Contact Physical Therapy Diagnoses Malignant neoplasm of ascending colon (CMS/HCC) Mata Smalls MD [address] [id number] Phone: tel: fax: Referral ID Status Reason Start Date Expiration Date Visits Requested Visits Authorized [id number] Authorized Consult and Treat 07/14/2024 01/13/2026 1 1 * Home Health (Routine) - Authorized Specialty Diagnoses / Procedures Referred By Sangeetha t Referred To Contact Home Health Services / Case Management Diagnoses Malignant neoplasm of colon, unspecified part of colon (CMS/HCC) Mata Smalls MD [address] [address] Phone: tel: fax: Referral ID Status Reason Start Date Expiration Date Visits Requested Visits Authorized [id number] Authorized Specialty Services Required 07/12/2024 01/11/[phone] Reason for Visit * Auth/Cert (Routine) Specialty Diagnoses / Procedures Referred By Contac t Referred To Contact Diagnoses Malignant neoplasm of colon, unspecified part of colon (CMS/HCC) Malignant neoplasm of colon, unspecified part of colon (CMS/HCC) [C18.9] Procedures [place] LAP,SURG,COLECTOMY,W/REMVL TERM ILEUM lap right, possible ileostomy Mata Smalls MD [address] [place] [address] Phone: tel: fax: [facility] [address] [place] [address] Phone: tel: Referral ID Status Reason Start Date Expiration Date Visits Re quested Visits Authorized [id number] 1 1 Encounter Details Date Type Department Care Team (Latest Contact Info) Description 07/10/2024 11:10 AM EDT - 07/15/2024 4:46 PM EDT Hospital Encounter [facility] [address] [place] [id number] Mata Smalls MD [address] [address] Malignant neoplasm of ascending colon (CMS/HCC) (Primary Dx); Malignant neoplasm of colon, unspecified part of colon (CMS/HCC) Discharge Disposition: Home or Self Care Social History Tobacco Use Types Packs/Day Years Used Date Smoking Tobacco: Never Passive Smoke Exposure: Never Smokeless Tobacco: Never Alcohol Use Standard Drinks/Week Comments Not Currently 0 (1 standard drink = 0.6 oz pur e alcohol) Humiliation, Afraid, Rape, and Kick questionnair e Answer Date Recorded Within the last year, have y ou been afraid of your partner or ex-partner? No 07/11/2024 Within the last year, have y ou been humiliated or emotionally abused in other ways by your partner or ex-partner? No Within the last year, have y ou been kicked, hit, slapped, or otherwise physically hurt by your partner or ex-partner? No 07/11/2024 Within the last year, have y ou been raped or forced to have any kind of sexual activity by your partner or ex-partner? No 07/11/2024 Hunger Vital Sign Answer Date Recorded Within the past 12 months, y ou worried that your food would run out before you got the money to buy more. Never true 07/12/19 Within the past 12 months, t he food you bought just didn't last and you didn't have money to get more. Never true 07/11/2024 PRAPARE - Transportation Answer Date Re corded In the past 12 months, has l ack of transportation kept you from medical appointments or from getting medications? No 06/23 In the past 12 months, has l ack of transportation kept you from meetings, work, or from getting things needed for daily living? No 07/11/2024 Housing Stability Vital Sign Answer Jamel e Recorded In the last 12 months, was t here a time when you were not able to pay the mortgage or rent on time? No 07/11/2024 Number of Times Moved in the Last Year Not on fi le 07/11/2024 At any time in the past 12 m [facility], were you homeless or living in a halfway (including now)? No 07/11/2024 Utilities Answer Date Recorded In the past 12 months has th e [employer], gas, oil, or water company threatened to shut off services in your home? No 07/11/2024 Comments No Sex and Gender Information Value Date Recorded Sex Assigned at Not on file Legal Sex Female 8:12 PM EDT Gender Identity Not on file Sexual Orientation Not on file documented as of this encounter Last Filed Vital Signs Vital Sign Reading Time Taken Comments Blood Pressure 131/74 07/15/2024 3:26 PM EDT Pulse 61 07/15/2024 3:26 PM EDT Temperature 36.4 C (97.6 F) 07/15/2024 3:26 PM EDT Respiratory Rate 18 07/14/2024 7:15 PM EDT Oxygen Saturation 93% 07/15/2024 3:26 PM EDT Inhaled Oxygen Concentration - - Weight 105 kg (232 lb) 07/11/2024 1:50 AM EDT Height 160 cm (5' 2.99 ) 07/11/2024 1:50 AM EDT Body Mass Index 41.11 07/11/2024 1:50 AM EDT documented in this encounter Functional Status * Calculated C-SSRS Risk Score (Lifetime/Recent) Answer Date of Assessment Author No Risk Indicated 07/15/2024 8:00 AM EDT Mary Knox * Question Answer Date of Assessment Author 1. Wish to be (Past 1 Month) No 025 8:00 AM EDT Mary Kaba 2. Non-Specific Active Suici bassam Thoughts (Past 1 Month) No 07/15/2024 8:00 AM EDT Trey Kaba 6. Suicidal Behavior (Lifetime) No 8:00 AM EDT Mary Kaba documented as of this encounter Discharge Instructions * Discharge Instructions* Nancy Doyle MD - 07/15/2024 12:28 PM EDT Images from the original note were not included. Department of Surgery Division of Colorectal Surgery Activity: Move around as you are able, do not lift over 5 lbs for 6 weeks after surgery Diet: You may eat a GI soft. You may try to gradually increase your diet in the next few weeks; however, avoid large meals such as steak. If you feel nauseous or cannot tolerated new foods, continue GI soft Be sure to stay hydrated and take in plenty of fluid. See attached diet instructions. Medications: Take tylenol 1000mg every 6 hours for pain, if you still have pain, take your home Bart[place]. You will also be discharged on a muscle relaxer for pain you can take by mouth every 6 hours. Continue your home medications unless instructed otherwise at discharge. You will also take a blood thinner (Xarelto), 10mg daily until 08/07. Wound care: It is okay to shower. Allow warm, soapy water to run over your incisions and pat dry with a clean towel. Do not submerge your incisions in a tub bath or body of water for two weeks after your operation. You have surgical glue over your incisions. Do not pick at this. It will come off onits own. Follow up: You will follow up with Dr. Smalls in 4 weeks. The clinic will call with an appointment time. Questions: Call the [facility] at [phone] during business hours on weekdays or call [facility]'s after hours at [phone] to speak with a resident financial economist for Colorectal surgery after 5pm or on weekends if: - you have a fever > 101F - you are vomiting and cannot keep down liquids - your pain cannot be controlled with oral medications - if you start to have increased redness, drainage of pus, swelling, or increased pain around your incision documented in this encounter Medications at Time of Discharge [...] 1 tablet by mouth daily. HYDROcodone-acetamin ophen (Bartlett) 7.5-325 MG tablet Take 1 tablet by [...] hours for 5 days. 20 tablet 07/15/2024 documented as of this encounter Miscellaneous Notes * Nona Galvan RN - 07/15/2024 3:42 PM EDT Images from the original note were not included. [id number] Rivaroxaban Brand Name(s): Xarelto?? IMPORTANT WARNING: If you have atrial fibrillation (a condition in which the heart beats irregularly, increasing the chance of clots forming in the body, and possibly causing strokes) and are taking rivaroxaban to helpprevent strokes or serious blood clots, you are at a higher risk of having a stroke after you stop taking this medication. Do not stop taking rivaroxaban without talking to your doctor. Continue to take rivaroxaban even if you feel well. Be sure to refill your prescription before you run out of medication so that you will not miss any doses of rivaroxaban. If you need to stop taking rivaroxaban, your doctor may prescribe another anticoagulant (''blood thinner'') to help prevent a blood clot from forming and causing you to have a stroke. If you have epidural or spinal anesthesia or a spinal puncture while taking a 'blood thinner' such as rivaroxaban, you are at risk of having a blood clot form in or around your spine that could causeyou to become paralyzed. Tell your doctor if you have an epidural catheter that is left in your body or have or have ever had repeated epidural or spinal punctures, spinal deformity, or spinal surgery. Tell your doctor and pharmacist if you are taking medications that may cause bleeding including anticoagulants (blood thinners) such as warfarin (Febtoven), heparin, or other medications to treat or prevent blood clots and aspirin and other nonsteroidal anti-inflammatory drugs (NSAIDs) such as ibu profen (Advil, Motrin, others), indomethacin (Indocin), ketoprofen, and naproxen (Aleve, Anaprox, others). If you experience any of the following symptoms, call your doctor immediately: back pain, muscle weakness (especially in your legs and feet), numbness or tingling (especially in your legs), loss of control of your bowels or bladder, or inability to move your legs. Talk to your doctor about the risk of taking rivaroxaban. Your doctor or pharmacist will give you the postal delivery officer's patient information sheet (Medication Guide) when you begin treatment with rivaroxaban and each time you refill your prescription. Read the information carefully and ask your doctor or pharmacist if you have any questions. You can also visit the Food and Drug Administration (FDA) website (https://www.fda.gov/downloads/Drugs/DrugSafety/FIR548577.pdf) or the postal delivery officer's website to obtain the Medication Guide. WHY is this medicine prescribed? Rivaroxaban is used to treat deep vein thrombosis (DVT; a blood clot, usually in the leg) and pulmonary embolism (PE; a blood clot in the lung) in adults. Rivaroxaban is also used to prevent DVT and PE from happening again after initial treatment is completed in adults. It is also used to help prevent strokes or serious blood clots in adults who have atrial fibrillation (a condition in which the heart beats irregularly, increasing the chance of clots forming in the body, and possibly causing strokes) that is not caused by heart valve disease. Rivaroxaban is also used to prevent DVT and PE in adults who are having hip replacement or knee replacement surgery or in people who are hospitalized for serious illnesses and are at risk of developing a clot due to decreased ability to move around or other risk factors. It is also used along with aspirin to lower the risk of a heart attack, stroke, or in adults with coronary artery disease (narrowing of the blood vessels that supply blood t o the heart) or peripheral arterial disease (poor circulation in the blood vessels that supply blood to the arms and legs). Rivaroxaban is also used to treat and prevent DVT and PE from happening again in children and certain infants who have received at least 5 days of initial anticoagulation (blood thinner) treatment. It is also used to prevent DVT and PE after heart surgery in children 2 yearsof age or older who have congenital heart disease (abnormality in the heart that develops before ). Rivaroxaban is in a class of medications called factor Xa inhibitors. It works by blocking theaction of a certain natural substance that helps blood clots to form. HOW should this medicine be used? Rivaroxaban comes as a tablet and a suspension (liquid) to take by mouth. When rivaroxaban is used to treat DVT or PE in adults, it is usually taken with food twice daily for 21 days, then once dailywith food. When rivaroxaban is used to prevent DVT or PE in adults, it is usually taken once daily with or without food after at least 6 months of anticoagulation (blood thinner) treatment. When rivaroxaban is used to prevent a stroke in those who have atrial fibrillation, it is usually taken once daily with the evening meal. When rivaroxaban is taken to prevent DVT and PE after hip or knee replacement surgery, it is usually taken with or without food once daily. The first dose should be taken at least 6 to 10 hours after surgery. Rivaroxaban is usually taken for 35 days after a hip replacement surgery and for 12 days after knee replacement surgery. When rivaroxaban is taken to prevent DVT and PE in adults who are hospitalized for serious illnesses and are at risk of developing a clot dueto decreased ability to move around, it is usually taken with or without food once daily starting wh en you are in the hospital and then continuing for a total of 31 to 39 days. When rivaroxaban is taken along with aspirin in adults with coronary artery disease or peripheral arterial disease, it is usually taken twice daily with or without food. When rivaroxaban is used in children and infants to treat or prevent DVT or PE, it is usually given 1 to 3 times a day with food after at least 5 days of anticoagulation (blood thinner) treatment. When rivaroxaban is taken in children 2 years of age orolder who have congenital heart disease, it is usually given 1 to 3 times a day with or without food after heart surgery. Take rivaroxaban at around the same time(s) every day. Follow the directions on your prescription label carefully, and ask your doctor or pharmacist to explain any part you do not understand. Take rivaroxaban exactly as directed. Do not take more or less of it or take it more often than prescribed by your doctor. For adults, if you are unable to swallow the tablets, you can crush them and mix with applesauce. Swallow the mixture right after you prepare it. Rivaroxaban can also be given in certain types of feeding tubes. Ask your doctor if you should take this medication in your feeding tube. Follow your doctor's directions carefully. For children taking rivaroxaban tablets, swallow the tablets whole; do not split them. If you or your child vomits or spits up within 30 minutes of taking a dose of rivaroxaban oral suspension, take another full dose as soon as possible after the vomiting episode and then take your next dose at the regularly scheduled time. To measure rivaroxaban oral suspension, follow these steps: ?? Use the oral syringe that came with the medication for measuring the liquid. Do not use a household spoon to measure your dose. Household teaspoons are not accurate measuring devices, and you may receive too much medication or not enough medication if you measure your dose with a household teaspoon. ?? Shake the bottle gently for 10 seconds before use. If there are remaining granules at the bottomof the bottle, shake gently again for another 10 seconds. Do not shake the bottle to avoid foaming. ?? Remove the bottle cap by pushing down on the cap, then turn it counterclockwise (to the left). Do not remove the adaptor from the top of the bottle. ?? Push all the air from the oral syringe into the bottle by pushing down on the plunger. Then insert the open tip of the oral syringe into the adaptor. ?? While holding the oral syringe in place, carefully turn the bottle upside down. Draw some of themedication out of the bottle into the oral syringe by pulling back on the plunger. Be careful not to pull the plunger all the way out. ?? You will see a small amount of air near the end of the plunger in the oral syringe. Push on the plunger so the medication goes back into the bottle and the air disappears. Pull back on the plungerto draw your correct medication dose into the oral syringe. ?? While still holding the oral syringe in the bottle, carefully turn the bottle upwards so the syringe is on top. Remove the oral syringe from the bottle neck adaptor without pushing on the plunger.Take the medication right after you draw it into the oral syringe. ?? Place the open tip of the oral syringe into one side of your child's mouth and push on the plunger slowly as the liquid goes into your child's mouth; have your child swallow the medication slowly as it goes into their mouth. ?? If your dose is more than 5 mL, you will need to use the same syringe more than one time and youwill need to repeat steps 3 through 7. ?? Leave the adaptor in the bottle. Place the cap back on the bottle and turn it clockwise (to the right) to tighten it. ?? Rinse the oral syringe with clean tap water and allow it to air dry after each use. Continue to take rivaroxaban even if you feel well. Do not stop taking rivaroxaban without talking to your doctor. If you stop taking rivaroxaban, your risk of a blood clot may increase. Are there OTHER USES for this medicine? This medication may be prescribed for other uses; ask your doctor or pharmacist for more information. What SPECIAL PRECAUTIONS should I follow? Before taking rivaroxaban, ?? tell your doctor and pharmacist if you are allergic to rivaroxaban, any other medications, or any of the ingredients in rivaroxaban tablets. Ask your pharmacist for a list of the ingredients. ?? tell your doctor and pharmacist what other prescription and nonprescription medications, vitamins, and nutritional supplements you are taking or plan to take. Your doctor may need to change the doses of your medications or monitor you carefully for side effects. ?? tell your doctor what herbal products you are taking, especially [place]'s wort. ?? tell your doctor if you have an artificial heart valve or recently noticed any unusual bruising or bleeding. Your doctor will probably tell you not to take rivaroxaban. ?? tell your doctor if you have or have ever had any type of bleeding problem, antiphospholipid syndrome (APS; a condition that causes blood clots), bleeding or an ulcer in your stomach or intestine,or kidney or liver disease. ?? tell your doctor if you are , plan to become , or are . If you become while taking rivaroxaban, call your doctor. ?? talk to your doctor about the risks and benefits of taking rivaroxaban if you are 75 years of age or older. ?? if you are having surgery, including dental surgery, tell the doctor or dentist that you are taking rivaroxaban. Your doctor may tell you to stop taking rivaroxaban before the surgery or procedure. Your doctor will tell you when you should start taking rivaroxaban again after your surgery. What SPECIAL DIETARY instructions should I follow? Unless your doctor tells you otherwise, continue your normal diet. What should I do IF I FORGET to take a dose? Adults: ?? If you take rivaroxaban once a day, take the missed dose as soon as you remember it on that day.Resume your regular dosing schedule the next day. ?? If you take rivaroxaban twice a day for the treatment of a DVT or PE, take the missed dose as soon as you remember it on that day. You may take 2 doses at the same time to make up for the missed dose. Resume your regular dosing schedule on the next day. ?? If you have CAD or PAD and take rivaroxaban twice a day to reduce the risk of DVT and PE and miss a dose, just continue your regular dosing schedule. Do not take a double dose to make up for a missed one. Infants and children: ?? If you take rivaroxaban once a day, take the missed dose as soon as you remember it on that day.Resume your regular dosing schedule the next day. Do not take a double dose to make up for a missedone. ?? If you take rivaroxaban twice a day, take the missed morning dose as soon as you remember it on that day. You may take 2 doses at the same time in the evening to make up for the missed morning dose. Resume your regular dosing schedule on the next day ?? If you take rivaroxaban three times a day and miss a dose, skip the missed dose and continue your regular dosing schedule. Do not take a double dose to make up for a missed one. What SIDE EFFECTS can this medicine cause? Some side effects can be serious. If you experience any of these symptoms or those listed in the IMPORTANT WARNING section, call your doctor immediately: ?? bloody, black, or tarry stools ?? pink, or brown urine ?? coughing up or vomiting blood or material that looks like coffee grounds ?? frequent nosebleeds ?? bleeding from your gums ?? heavy menstrual bleeding ?? weakness ?? tiredness ?? headache ?? dizziness or fainting ?? blurred vision ?? pain in arm or leg ?? rash ?? itching ?? difficulty breathing or swallowing ?? hives ?? pain or swelling at wound sites ?? decreased urination ?? swelling in your legs, feet, or ankles Rivaroxaban prevents blood from clotting normally so it may take longer than usual for you to stop bleeding if you are cut or injured. This medication may also cause you to bruise or bleed more easily. Call your doctor right away if bleeding or bruising is unusual. Rivaroxaban may cause other side effects. Call your doctor if you have any unusual problems while taking this medication. If you experience a serious side effect, you or your doctor may send a report to the Food and Drug Administration's (FDA) MedWatch Adverse Event Reporting program online (https://www.fda.gov/Safety/MedWatch) or by phone ( ). What should I know about STORAGE and DISPOSAL of this medication? Keep this medication in the container it came in, tightly closed, and out of reach of children. Store it at room temperature and away from excess heat and moisture (not in the bathroom). It is important to keep all medication out of sight and reach of children as many containers (such as weekly pill minders and those for eye drops, creams, patches, and inhalers) are not child-resistant and young children can open them easily. To protect young children from poisoning, always lock safety caps and immediately place the medication in a safe location - one that is up and away and out of their sight and reach. https://www.upandaway.org Unneeded medications should be disposed of in special ways to ensure that pets, children, and otherpeople cannot consume them. However, you should not flush this medication down the toilet. Instead,the best way to dispose of your medication is through a medicine take-back program. Talk to your pharmacist or contact your local garbage/recycling department to learn about take-back programs in your community. See the FDA's Safe Disposal of Medicines website (https://goo.gl/c4Rm4p) for more information if you do not have access to a take-back program. What should I do in case of OVERDOSE? In case of overdose, call the poison control helpline at . Information is also available online at https://www.poisonhelp.org/help. If the victim has collapsed, had a seizure, has trouble breathing, or can't be awakened, immediately call emergency services at 911. Symptoms of overdose may include the following: ?? unusual bleeding or bruising ?? bloody, black, or tarry stools ?? blood in urine ?? coughing up or vomiting blood or material that looks like coffee grounds What OTHER INFORMATION should I know? Keep all appointments with your doctor and the laboratory. Your doctor may order certain lab tests to check your body's response to rivaroxaban. Do not let anyone else take your medication. Your prescription is probably not refillable. It is important for you to keep a written list of all of the prescription and nonprescription (hfkz-dsk-asfkmjc) medicines you are taking, as well as any products such as vitamins, minerals, or otherdietary supplements. You should bring this list with you each time you visit a doctor or if you areadmitted to a hospital. It is also important information to carry with you in case of emergencies. This report on medications is for your information only, and is not considered individual patient advice. Because of the changing nature of drug information, please consult your physician or pharmacist about specific clinical use. The [employer] represents that the information provided hereunder was formulated with a reasonable standard of care, and in conformity with professional standards in the field. The [employer] makes no representations or warranties, express or implied, including, but not limited to, any implied warranty of merchantability and/or fitness for a particular purpose, with respect to such information and specifically disclaims all such warranties. Users are advised that decisions regarding drug therapy are complex medical decisions requiring the independent, informed decision of an appropriate health career manager, and the information is provided for informational purposes only. The entire monograph for a drug should be reviewed for a thorough understanding of the drug's actions, uses and side effects. The [employer] does not endorse or recommend the use of any drug.The information is not a substitute for medical care. AHFS?? Patient Medication Information?. ?? Copyright, 2023. The [employer]??, [address], [address], [place], [place]. All Rights Reserved. Duplication for commercial use must be authorized by [facility]. Selected Revisions: June 06, 2022. AHFS?? Patient Medication Information?. ?? Copyright, 2024 * Nona Galvan RN - 07/15/2024 3:42 PM EDT Images from the original note were not included. 84167 Washing Your Hands Aoau-xg-Ayza Last Reviewed Date: 2022 00:00:00 ?? [id number] [employer]. All rights reserved. This information is not intended as a substitute for professional medical care. Always follow your healthcare professional's instructions. * Nona Galvan RN - 07/15/2024 3:41 PM EDT Images from the original note were not included. 55758 Preventing a Surgical Site Infection A risk of any surgery is an infection at the surgical site. The surgical site is a cut the surgeon makes in the skin to do the surgery. Surgical site infections can range in type. It may be a minor skin infection. Or it may be severe and include tissue under the skin or other organs. In some cases,a severe infection can cause . The information below tells you: ?? About surgical site infections. ?? What hospitals do to prevent them. ?? How they?re treated if they do occur. ?? What you can do to prevent an infection. Hand washing reduces the risk of infection. What causes a surgical site infection? Germs are everywhere. They?re on your skin, in the air, and on things you touch. Many germs are good. Some are harmful. Surgical site infections occur when harmful germs enter your body through the incision in your skin. Some infections are caused by germs that are in the air or on objects. But most are caused by germs found on and in your own body. Who is at risk for a surgical site infection? Anyone can have a surgical site infection. Your risk is higher if you: ?? Are an older adult. ?? Have a weak immune system. ?? Have other health conditions such as diabetes. ?? Take certain medicines, such as steroids. ?? Are a smoker. ?? Have certain types of surgery, such as abdominal surgery. ?? Have poor nutrition. ?? Are very overweight. ?? Have a surgery that lasts longer than 2 hours. What are the symptoms of a surgical site infection? An infection often shows up as skin redness, pain, and swelling around the incision that gets worse. Later, a cloudy or greenish-yellow fluid may come from the incision. The fluid may smell bad. The incision may pull apart or open up. You are likely to have a fever and may feel very ill. Symptoms can appear at any time. They may happen from hours to weeks after surgery. Implants such as an artificial knee or hip can become infected at any time after the surgery. How is a surgical site infection treated? ?? A surgical site infection is treated with antibiotics. The type of medicine you get will depend on what may be causing the infection. Most serious wound infections need wound care. In some cases, surgery may be needed on the infected wound. ?? An infected skin wound may be reopened and cleaned. A deep wound may need to be packed with gauze. The gauze is changed often until the wound starts to heal from the inside out. Your health care provider will decide the best way to treat your infection. ?? If an infection occurs where an implant is placed, the implant may be removed. ?? If you have an infection deeper in your body, you may need surgery to treat it. What hospitals do to prevent surgical site infections Many hospitals take these steps to help prevent surgical site infections: ?? Handwashing. Before the surgery, your surgeon and all surgery staff scrub their hands and arms with an antiseptic soap. ?? Clean skin. The site where your incision is made is carefully cleaned with an antiseptic solution. ?? Sterile clothing and drapes. The surgical team wears medical uniforms. These are known as scrub suits. They wear long-sleeved surgical gowns, masks, caps, shoe covers, and sterile gloves. Your body is fully covered with a large sterile sheet (sterile drape). There is an opening in the sheet where the incision is made. ?? Clean air. Operating rooms have special air filters. They use positive pressure airflow to prevent unfiltered air from entering the room. ?? Careful use of antibiotics. Antibiotics are given no more than 60 minutes before the incision ismade. They are generally stopped within 24 hours after surgery. This depends on the type of surgery. This helps kill germs but prevents problems that can occur when antibiotics are taken longer. ?? Controlled blood sugar levels. Your blood sugar level may rise. This can be because of the stress of the surgery. Your blood sugar level is watched closely to make sure it stays within a normal range. High blood sugar delays wound healing. This increases the risk of infection. ?? Controlled body temperature. A dmryi-wiye-fadejl temperature during or after surgery prevents oxygen from reaching the wound. This makes it harder for your body to fight infection. Hospitals may warm I.V. fluids, and provide warm-air blankets. Your temperature is watched throughout the surgery. ?? Safe hair removal. Any hair that must be removed is clipped right before the incision, not shaved with a razor. This prevents tiny nicks and cuts where germs can enter. ?? Wound care. After surgery, a closed wound is covered with a sterile dressing for 1 to 2 days. Open wounds are packed with sterile gauze and covered with a sterile dressing. What you can do to prevent a surgical site infection ?? Ask questions. Learn what your hospital is doing to prevent infection. ?? If instructed, shower or bathe with plain soap the night before and the day of your surgery. Follow all instructions you're given. You may be asked to use a special cleanser that you don?t rinse off. ?? If you smoke, stop as long as possible before and after the surgery. Ask your provider about ways to quit. ?? Take antibiotics only when your provider tells you to. Using antibiotics when they?re not neededcan create germs that are harder to kill. Finish the entire prescription of your antibiotics even if you feel better. ?? Ask health care workers to clean their hands with plain soap and water or with an alcohol-based hand stunner and shackler before and after caring for you. Don?t be afraid to remind them. ?? After surgery, eat healthy foods. Care for your incision as directed by your health care team. When to contact your doctor Contact your provider or seek medical care right away if: ?? The pain at the surgical site gets worse. ?? A red streak, worse redness, or puffiness appears near the incision. ?? Yellowish, cloudy, or bad-smelling fluid leaks from the incision. ?? Your stitches dissolve before the wound heals. ?? You have a fever of 100.4?? F ( 38??C ) or higher, or as advised by your provider. ?? You have a tired feeling that doesn?t go away. Last Reviewed Date: 2024 00:00:00 ?? [id number] [employer]. All rights reserved. This information is not intended as a substitute for professional medical care. Always follow your healthcare professional's instructions. * Thalia RickettsMADALYN - Nona Wiseman RN - 07/15/2024 3:41 PM EDT Images from the original note were not included. 1497 Moving after Colorectal Surgery Please follow these tips after your surgery. They will help you heal, manage pain, and get stronger. Your doctor will let you know when it is ok to go back to normal activities. Do not use your stomach muscles or twist at your trunk. ?? When getting in and out of bed, use the log roll. ?? Do not sit straight up. How to get out of bed Step 1 Step 2 Step 3 Step 4 Step 5 How to get into bed Step 1 Step 2 Step 3 Step 4 Do not hold your breath or bear down. Try to take normal breaths during activities. Sit in chair for all meals (or at mealtimes). Do not lift more than 10 pounds. Avoid heavy pushing or pulling. Do not bend over to touch your feet and toes. ?? There are skills and equipment to help you put on your shoes and socks. Walk 3 times a day or more. Protect your belly after surgery. ?? Wear an abdominal binder if ordered by your doctor. ?? Hold a pillow or folded blanket across your incision while moving, coughing, or sneezing. ?? This will help you manage your pain, protect your incision, and heal faster. Lie flat for short periods of time throughout the day. ?? This will help stretch the tissues in your belly. * Thalia Murcia - Nona Wiseman RN - 07/15/2024 3:41 PM EDT Images from the original note were not included. 32464 Colorectal Surgery: Recovering in the Hospital and at Home You have had colorectal (bowel) surgery. When the surgery is done, you?ll be taken to the PACU (postanesthesia care unit). Health care providers will closely keep track of your blood pressure, heart rate, breathing, and surgical areas while you wake from anesthesia. You?ll also get pain medicine asneeded to keep you comfortable. You?ll be moved to a regular hospital room when you're stable. You?ll then be watched closely to besure you?re healing well. Your hospital stay may last from a few days to a week or longer. This depends on how well you progress. Once you are at home, follow instructions to help make sure you have a full recovery. Your healthcare provider will help you take short walks soon after surgery. Right after surgery ?? If you have a urinary catheter, it will likely be taken out shortly after surgery. ?? Your I.V. (intravenous) line will stay in place for a few days to give you fluids and medicines.You will continue to receive pain medicines from the I.V. until you are able to take pain pills by mouth if needed. ?? Soon after surgery, you?ll be up and walking around. This helps improve blood flow and prevent blood clots. It also helps your bowels get back to normal. This will help prevent a bowel slowing or blockage (ileus). Your health care team will listen to the sounds in your belly (your 'bowel sounds'). This is to make sure your bowels are starting to work normally. ?? You?ll be given breathing exercises to keep your lungs clear and prevent infection. Stoma Care If a stoma (ostomy) was made during surgery, your health care providers will show you how to care for it. You may also meet with an ostomy nurse. They will teach you about stoma care. The stoma is anopening in your abdomen where your small or large intestine was connected. It will drain stool and mucus. Some stomas are temporary and some are permanent. It depends on your situation. Eating again In some cases, you may need to wait to eat. But many times, you can start eating lightly soon aftersurgery. This is part of a program for faster recovery. It's called enhanced recovery after surgery. Recovering at home In most cases, you?ll visit your health care provider shortly after leaving the hospital. You can get back to your normal routine in the weeks to about a month after surgery. This depends on your situation. Full recovery may take 4 to 6 weeks or longer. While your body heals, you may tire more easily. You also are likely to have some bloating. Loose stools and more frequent bowel movements are also common. This may get better over time. But it may never fully go away. It will depend on the type of bowel surgery you had and specifics of your case. Resuming everyday activities Being active helps your body heal. But you must protect your healing incisions. Make sure you: ?? Walk as much as you feel up to. ?? Don't do any heavy lifting or vigorous exercise until your health care provider says it?s OK. Follow your provider?s advice about climbing stairs and bathing. ?? Don't drive right away. Wait until you?re no longer taking pain medicines. Also wait until you can readily press down on the brake pedal. When to call your doctor Contact your health care provider or get medical care right away if you have: ?? A fever of 100.4??F (38??C) or higher, or as directed by your provider. ?? Chills. ?? Nausea or vomiting that doesn't get better. ?? Unusual redness, swelling, drainage, or pain around your incision. ?? Leg pain, redness, or swelling. ?? Unexpected diarrhea, or have not passed gas or had a bowel movement for 24 hours. ?? Belly swelling that gets worse or doesn't go away. ?? Pain in the belly or around the stoma that lasts or gets worse. Call 911 Call 911 if you have: ?? Trouble breathing. ?? Chest pain. ?? A large amount of bleeding from your rectum or the surgery site. Last Reviewed Date: 2024 00:00:00 ?? [id number] [employer]. All rights reserved. This information is not intended as a substitute for professional medical care. Always follow your healthcare professional's instructions. * Thalia Murcia - Nona Wiseman RN - 07/15/2024 3:40 PM EDT Images from the original note were not included. [id number] Having Laparoscopic Colon Surgery You and your healthcare provider may decide that laparoscopic colon surgery is right for you. How well you get ready for the surgery can affect its success. For instance, proper bowel prep is an essential step in preparing for this procedure. Make sure you understand all instructions your provider gives you. If you?re not sure about what to do, ask. Getting ready a few weeks before surgery ?? Have an exam. Have a full physical exam before surgery, as instructed by your provider. This checks the health of your heart and lungs. ?? Ask about medicines. Tell your surgeon about all the medicines you take. Ask if you should stop taking any of them. This includes prescription medicines, as well as aspirin, ibuprofen, and other llug-sss-hxrauqx medicines. Tell your surgeon about any herbs, illegal drugs, vitamins, or supplements you take. ?? Quit smoking. If you smoke, do your best to quit now. Smoking raises your risks during surgery. It also slows healing. Do not smoke the day of the procedure. ?? Share your alcohol history. If you drink alcohol, let your provider know how much you drink. This is very important if you are a heavy drinker or have had alcohol withdrawal symptoms in the past. Alcohol withdrawal can be dangerous. But symptoms can be safely handled if your healthcare team knows about your alcohol history. Getting ready the day before surgery Follow any directions you are given, including those for: ?? Taking medicines ?? Not eating or drinking before surgery ?? Doing bowel prep ?? Washing with a special body wash called CHG (chlorhexidine) The day of surgery When you get to the hospital, you will be asked to fill out certain forms. You will then change into a gown. An IV (intravenous) line will be put into your hand or arm. This gives fluids and medicines. You?ll meet with your anesthesiologist or nurse staffing assistant to talk about the medicine that helpsyou sleep during surgery. Ask any questions you have at this time. Before surgery starts, you?ll begiven general anesthesia to put you into a deep sleep. A soft tube (catheter) may be placed into your bladder to drain urine. If open surgery is needed During the procedure, the surgeon may find that it is safer to change to open surgery. This method uses a single, larger cut (incision) instead. In most cases, this change happens because of something that could not be seen on scans done before the surgery. It doesn?t mean that anything went wrong.Changing to open surgery is done to give you the best result. During your surgery ?? Your surgeon makes several small cuts. ?? A long, thin tube (laparoscope) is then placed into one of the small cuts. This lets your surgeon see your colon on a video screen. ?? The surgical tools are placed into the other cuts. (A larger cut may be made later to take out apart of the colon.) ?? The problem part of the colon is removed (resected). Sometimes the two ends of the colon are joined. This is called an anastomosis. ?? Once surgery is done, you?ll be taken to the post anesthesia recovery unit (PACU). Possible benefits of laparoscopic surgery ?? Less scarring ?? Less pain ?? Faster recovery ?? [place] hospital stay ?? Quicker return to normal activity Types of colon resection The idea of having part of your colon taken out may sound scary. But part or all of the colon can be taken out without causing serious problems. After the part of the bowel is taken out, the two endsare then reconnected (anastomosis). Below are some of the surgeries that can be done on the colon. The type of surgery depends on where the problem is in your colon. After certain types of surgery, the colon and rectum may need to be free of stool while they heal. In other cases, the rectum has been taken out or can't be reconnected to the rest of the colon. In either case, a colostomy is needed. This makes a new opening in your belly (abdomen) so waste can leave your body. You may need the new opening for a short time or permanently. Your healthcare providerwill help you learn how to care for it. Right Hemicolectomy: Part or all of the ascending (right side) colon is removed. The remaining colon is then reconnected to the small intestine. Left Hemicolectomy: Part or all of the descending (left side) colon is removed. The remaining colonis then reconnected to the rectum. Sigmoid Colectomy (Sigmoidectomy): Part or all of the sigmoid colon is removed. The descending colon is then reconnected to the rectum. Segmental Resection: One or more short segments of colon are removed. The remaining ends of the colon are reconnected. Risks and possible complications Risks and possible complications of colon surgery include: ?? Infection ?? Injury to nearby organs ?? Leaking or separation after the two ends of the colon are joined (anastomosis) ?? Blood clots ?? Bleeding ?? Risks of anesthesia ?? Abscess formation ?? Bowel muscles slow or stop, and gas and waste don?t move through the body (short-term ileus) Last Reviewed Date: 2023 00:00:00 ?? [id number] [employer]. All rights reserved. This information is not intended as a substitute for professional medical care. Always follow your healthcare professional's instructions. * Discharge Summary - Nancy Doyle MD - 07/15/2024 3:35 PM EDT Images from the original note were not included. Hospitalization Admit Date/Time: 07/10/2024 11:10 AM Admitting Attending: Mata Smalls Discharge Date: 07/15/2024 Discharge Attending Physician: Mata Smalls MD PCP name and Address: Jose Mendoza MD [address] / [place] [address] Referring provider name and address: No referring provider defined for this encounter. Chief Concern, Brief History of Present Illness, and Hospital Course Juliet Tim is a 79 y.o. female with history of heart failure s/p heart catheterization, HTN, arthritis, HLD, and colon mass who presented to [facility] for surgical intervention. They were taken to the operating room on 07/10/2024 for elective laparoscopic, hand assisted, right colectomy. The patient tolerated the procedure well and was subsequently extubated and transferred to the PACU for recovery. After recovery, the patient was transferred to the floor. The patient's hospital course was uncomplicated and it was felt that the patient had reached maximal benefit from hospitalization. Theywere deemed appropriate for discharge to home with outpatient PT/OT. On the day of discharge the patient's pain was controlled on oral medications, they were ambulating, voiding appropriately, passing flatus, and tolerating oral intake. The patient was discharged on 07/15/24 to home and will returnto clinic in [address] Smalls. Surgeries and Procedures laparoscopic right colectomy (N/A) Medication List .. acetaminophen 500 MG tablet Commonly known as: Tylenol Take 1 tablet by mouth every 6 hours for 5 days. alendronate 70 MG tablet Commonly known as: Fosamax Take 1 tablet by mouth every 7 days. Wednesday aspirin 81 MG chewable tablet Chew 1 tablet 1 time each day. baclofen 10 MG tablet Commonly known as: Lioresal Take 1 tablet by mouth as needed. Calcium Carbonate-Vitamin D 250-3.125 MG-MCG tablet Take 1 tablet by mouth every morning. ferrous sulfate 325 (65 Fe) MG tablet Take 1 tablet by mouth 3 times a day with meals. furosemide 40 MG tablet Commonly known as: Lasix Take 1 tablet by mouth daily. Gemtesa 75 MG tablet Generic drug: Vibegron Take 75 mg by mouth daily. HYDROcodone-acetaminophen 7.5-325 MG tablet Commonly known as: Bartlett Take 1 tablet by mouth every 6 hours. isosorbide mononitrate ER 60 MG 24 hr tablet Commonly known as: Imdur Take 1 tablet by mouth daily. lisinopril 20 MG tablet Take 1 tablet by mouth daily. methocarbamol 500 MG tablet Commonly known as: Robaxin Take 1 tablet by mouth every 6 hours for 5 days. naloxone 4 mg/0.1 mL nasal spray Commonly known as: Narcan 1. Give 1 spray in nostril for no/slow breathing or cannot wake after opioid use 2. Call 911 3. Repeat in other nostril if symptoms continue nebivolol 10 MG tablet Commonly known as: Bystolic Take 1 tablet by mouth daily. ondansetron ODT 4 MG disintegrating tablet Commonly known as: Zofran-ODT Dissolve 1 tablet on the tongue every 6 hours as needed for nausea or vomiting. pantoprazole 40 MG EC tablet Commonly known as: Protonix Take 1 tablet by mouth 2 times a day. pravastatin 80 MG tablet Commonly known as: Pravachol Take 1 tablet by mouth daily. pregabalin 75 MG capsule Commonly known as: Lyrica Take 1 capsule by mouth 2 times a day. rivaroxaban 10 MG tablet Commonly known as: Xarelto Take 1 tablet by mouth daily for 24 doses. Where to Get Your Medications These medications were sent to [facility] - [place], [place] - [address] [facility] [id number] acetaminophen 500 MG tablet methocarbamol 500 MG tablet naloxone 4 mg/0.1 mL nasal spray ondansetron ODT 4 MG disintegrating tablet rivaroxaban 10 MG tablet Discharge Diagnosis Medical Problems Active and Resolved Hospital Problems Hospital Malignant neoplasm of colon, unspecified part of colon (CMS/HCC) * (Principal) Malignant neoplasm of colon Post Discharge Instructions Department of Surgery Division of Colorectal Surgery Activity: Move around as you are able, do not lift over 5 lbs for 6 weeks after surgery Diet: You may eat a GI soft. You may try to gradually increase your diet in the next few weeks; however, avoid large meals such as steak. If you feel nauseous or cannot tolerated new foods, continue GI soft Be sure to stay hydrated and take in plenty of fluid. See attached diet instructions. Medications: Take tylenol 1000mg every 6 hours for pain, if you still have pain, take your home [place]. You will also be discharged on a muscle relaxer for pain you can take by mouth every 6 hours. Continue your home medications unless instructed otherwise at discharge. You will also take a blood thinner (Xarelto), 10mg daily until 08/07. Wound care: It is okay to shower. Allow warm, soapy water to run over your incisions and pat dry with a clean towel. Do not submerge your incisions in a tub bath or body of water for two weeks after your operation. You have surgical glue over your incisions. Do not pick at this. It will come off onits own. Follow up: You will follow up with Dr. Smalls in 4 weeks. The clinic will call with an appointment time. Questions: Call the [facility] at [phone] during business hours on weekdays or call [facility]'s after hours at [phone] to speak with a resident financial economist for Colorectal surgery after 5pm or on weekends if: - you have a fever > 101F - you are vomiting and cannot keep down liquids - your pain cannot be controlled with oral medications - if you start to have increased redness, drainage of pus, swelling, or increased pain around your incision Outpatient Follow-Up No future appointments. Test Results Pending At Discharge None Pertinent Physical Exam At Time of Discharge Physical Exam Constitutional: Appearance: Normal appearance. HENT: Head: Normocephalic and atraumatic. Cardiovascular: Rate and Rhythm: Normal rate and regular rhythm. Pulmonary: Effort: Pulmonary effort is normal. Abdominal: General: There is no distension. Palpations: Abdomen is soft. Tenderness: There is abdominal tenderness (appropriate). There is no guarding. Comments: Abdominal binder in place. Incisions c/d/intact, covered with dermabond and open to air. Mild bruising around incisions. Skin: General: Skin is warm. Neurological: General: No focal deficit present. Mental Status: She is alert. Mental status is at baseline. Discharge Disposition/Condition Disposition: Home Condition: Stable (s/sx potential problems absent or manageable) I spent >30 minutes of patient care and instruction time in preparation for this discharge. Cosigned by Mata Smalls MD at 07/16/2024 8:03 AM EDT * Hospital Course - Nancy Doyle MD - 07/15/2024 12:29 PM EDT Juliet Tim is a 79 y.o. female with history of heart failure s/p heart catheterization, HTN, arthritis, HLD, and colon mass who presented to [facility] for surgical intervention. They were taken to the operating room on 07/10/2024 for elective laparoscopic, hand assisted, right colectomy. The patient tolerated the procedure well and was subsequently extubated and transferred to the PACU for recovery. After recovery, the patient was transferred to the floor. The patient's hospital course was uncomplicated and it was felt that the patient had reached maximal benefit from hospitalization. Theywere deemed appropriate for discharge to home with outpatient PT/OT. On the day of discharge the patient's pain was controlled on oral medications, they were ambulating, voiding appropriately, passing flatus, and tolerating oral intake. The patient was discharged on 07/15/24 to home and will returnto clinic in [address] Smalls. * Care Plan - Mary Kaba - 07/15/2024 9:56 AM EDT Problem: Adult Inpatient Plan of Care Goal: Plan of Care Review Outcome: Ongoing, Progressing Flowsheets (Taken 07/15/2024 0956) Progress: improving Plan of Care Reviewed With: patient Goal: Patient-Specific Goal (Individualized) Outcome: Ongoing, Progressing Goal: Absence of Hospital-Acquired Illness or Injury Outcome: Ongoing, Progressing Goal: Optimal Comfort and Wellbeing Outcome: Ongoing, Progressing Goal: Readiness for Transition of Care Outcome: Ongoing, Progressing Problem: Self-Care Deficit Goal: Improved Ability to Complete Activities of Daily Living Outcome: Ongoing, Progressing Problem: Infection Goal: Absence of Infection Signs and Symptoms Outcome: Ongoing, Progressing * Progress Notes - Maxine Pompa RN - 07/14/2024 2:31 PM EDT Case Management Adult Progress Note Juliet Tim 79 y.o. female CSN: [id number] Admission: 07/10/2024 11:10 AM Primary Problem: Malignant neoplasm of colon Anticipated Discharge Date: weekend Has Discharge Plans Changed? No Medicare Second Notice: Medicare Medicare Second Notice?: Yes Date Second Notice Completed: 07/14/24 Medicare Second Notice Recieved By: patient Housing Circumstances: Not Applicable Housing Circumstances Action Taken: Other Medically Ready for Discharge: Anticipated in 2-4 Days Additional Comments Spoke to MD this am, pt not medically ready for d/c at this time. Anticipate patient to possibly beready for discharge this weekend. PT/OT recs for rolling walker, orders and information sent via careport to [facility], verified insurance will pay for walker, notified pt's daughter. Walker to be delivered to bs today. Pt does not have any accepting hh agencies, pt in agreement with outpt PT/OT. Will continue to follow and assist with d/c needs as they arise. Maxine Pompa, ARRON * Progress Notes - Consuelo Kumar - 07/14/2024 12:22 PM EDT PHYSICAL THERAPY TREATMENT PATIENT DATA Patient Name Juliet Tim Session Date 07/14/2024 Total Treatment Time 70 min PT Discharge Recommendations Home with assistance, Outpatient OT, Outpatient PT PT Equipment Recommendations Rolling walker PRECAUTIONS Weight Bearing Precautions (if applicable) ROM Restrictions (if applicable) Medical Precautions Yes Medical Precautions: Fall precautions, Post-Surgical precautions Post-Surgical Precautions: Abdominal HOME LIVING/SET-UP Lives With Spouse (Grandson - 9 y/o) Home Type Mobile home Home Equipment Rollator, Wheelchair-manual (Tub Transfer Bench, Lift Chair) Home Layout One level (Ramped entry) Bathroom Layout Tub/Shower combo, Tub transfer bench Standard Accessible via walker (Rollator) Additional Comments PRIOR LEVEL OF FUNCTION Receives help from No assist required prior to admission Level of Mobility Ambulatory- household only (motorized carts at store/wheelchair for community distances) Mobility [place] Independent gait with device (Rollator) History of Falls No ADL Performance ADL Performance: Needs assistance Bathing: Independent Upper Body Dressing: Independent Lower Body Dressing: Independent Grooming: Independent Toileting: Independent Eating: Independent Home Management Skills: Needs assist ( company and assist with cooking and cleaning) PRESENTATION Oxygen Oxygen Therapy: None (Room air) Lines and Tubes Pre-Session Sitting in chair, Lines intact, Chair alarm RN agreeable to PT session. Post-Session Sitting in chair, Chair alarm, Lines intact, Call light in reach, RN notified Pt positioned for comfort with all needs met. Bracing (if applicable) Orthoses: (abdominal binder) SUBJECTIVE PARTICIPANTS IN CARE Visitors Present Yes, Spouse, Adult Daughter, Other (Specify) (son-in-law) Subjective Report Pt HAS been: * Ambulating in-room distances * Transferring Bed <> Chair since last PT treatment. Pt is anticipating discharge from [facility] tomorrow. Pt agreeable to PT session. I am doing a lot better . I want to get home to my boy (grandson) and dog . Upper Cutter Out (if applicable) Not Applicable OBJECTIVE & INTERVENTIONS PAIN States gas pain, however did not rate. Stated Its almost time for my pain medication . Prior to PT's departure: * rest was provided * pt was positioned for comfort * RN was informed of pt's pain RN present to give pain meds towards end of session. DELIRIUM SCREENING Mason Agitation Sedation Scale (RASS): Alert and calm Feature 3: Altered Level of Consciousness: Negative THERAPEUTIC ACTIVITY Treatment Minutes 55 Interventions Patient participated in PT interventions targeting strength, endurance, range of motion, and balance to improve functional mobility and activity. See transfers, ambulation, and balance sections for details. Patient's O2 monitored for signs of intolerance to activity during session. TRANSFERS Level of [place] Physical/Non- physical Assist Adaptive Equipment Utilized Sit to Stand Stand-by assist Verbal Cues, Minimal cues, Nonverbal cues (demo/gestures) (Rollator initially and RW as session progressed.) Stand to sit Stand-by assist Minimal cues, Nonverbal cues (demo/gestures), Verbal Cues (Rollator initially and RW as session progressed.) Bed to Chair Toilet Transfer Stand-by assist Ambulation, To toilet Verbal Cues, Minimal cues Rollator, Grab bar Shower Transfer Interventions Verbal cues for safety awareness. Current recommendation for pt to use RW. BALANCE Postural Appearance Posture: Forward head, Rounded shoulders Level of [place] Balance Support Interventions Static Sit Supervision Feet supported Dynamic Sit Standby assisst Feet supported, Right upper extremity support, Left upper extremity support Dynamic Sitting-Balance: Lateral weight shifts, Anterior/Posterior weight shifts Static Stand Standby assist Right upper extremity support, Left upper extremity support (on AD) Dynamic Stand (Rollator CGA and RW SBA) Right upper extremity support, Left upper extremity support(on AD) Dynamic Standing -Balance: Lateral weight shifts, Anterior/Posterior weight shifts, reaching across midline/ outside MERON. Performed hand/ face hygiene standing at sink. Exhibits increased trunk flexion. No LOB. Pt able to stand x 5 mins. AMBULATION Level of [place] Distance Adaptive Equipment Utilized Ambulation (CGA using rollator. SBA using RW.) 15ft to bathroom rollator and 15ft from bathroom rollator. RW 30ft RPE 9/10 post third ambulation- educated pt on energy conservation to reduce fall risks. Exhibited increased SOA monitored O2 room air 95%. Pt reports since surgery improvement in breathing. (Rollator initially and RW as session progressed.) Comments Exhibits decreased elizabeth, decreased step length, increased trunk flexion, no LOB. Noted pt reports she usually ambulates with increased trunk flexion and as needed leans on rollator at home. Currently pt safer with RW and pt agreeable stating I feel safer using it right now . DIRECTOR OF PERSONNEL presence was necessary for: * decreasing patient's risk of falling while progressing pt's distances * assessing patient readiness for decreasing support requirements from assistive devices THERAPEUTIC EXERCISE Treatment Minutes 15 Interventions PT provided verbal cues for correct form and pacing. Patient completed the following exercises in sitting supported in chair to improve strength, endurance, and range of motion for functional activities. Right LE AROM (active range of motion), Left LE AROM (active range of motion) x 10 reps- Discussed with pt if unable to tolerate theraband to start with AROM. Therapist provided patient with written HEP and issued red theraband: Access Code: [email or web address] URL: [email or web address] Date: 07/14/2024 Prepared by: [facility] Exercises - Seated Hamstring Curls with Resistance - 2 x daily - 7 x weekly - 3 sets - 10 reps - Seated Knee Extension with Resistance - 2 x daily - 7 x weekly - 3 sets - 10 reps - Seated Hip Abduction with Resistance - 2 x daily - 7 x weekly - 3 sets - 10 reps - Seated Hip Adduction Isometrics with Ball - 2 x daily - 7 x weekly - 3 sets - 10 reps - Seated March with Resistance - 2 x daily - 7 x weekly - 3 sets - 10 reps - Seated Ankle Plantar Flexion with Resistance Loop - 2 x daily - 7 x weekly - 3 sets - 10 reps Reiterated importance of completing 2-3 times daily. ASSESSMENT Met 2/5 goals and progressing tolerating session without adverse effects. Pt voicing desire to return home. Pt is improving, as noted by: less assistance required for pt to complete some or all transfers, pt demonstrated improved sitting and/or standing balance, and pt ambulated during this PT treatment compared to last PT treatment. Pt has the following impairments: impaired activity tolerance, gross functional weakness, and impaired posture, which is limiting the pt from performing independent functional mobility. Pt able to ambulate short household distances safely using RW SBA. Pt reportspreviously she only ambulated approx. 25ft in home and reports having caregiver present 5 days a week x 8 hours each day. Pt has strong support from and daughter/ son-in-law present. Pt has aramp to gain entry/ exit of home. Issued written HEP/ theraband. Discussed updated recommendations with CM- noted HH limited in pts area. Plans for pt to return home with assistance/ OP PT OT and annie mmendation to use RW at this time. Discussed updated PT recommendations with supervising Physical Therapist. Possible plans for pt to discharge home tomorrow, however if pt does not discharge will continue to benefit from acute PT focusing on improving functional mobilities during hospital stay. PT RECOMMENDATIONS Discharge Destination Home with assistance, Outpatient OT, Outpatient PT Discharge Equipment Rolling walker PLAN Pt may continue to benefit from skilled PT for addressing patient's impairments and reducing patient's participation restrictions and activity limitations. PT GOALS PT GOAL DETAILS DATE ASSESSED STATUS PROGRESS PT Goal 1: Pt will demonstrate bed mobility with standby assist. PT Goal 1 Established Date: 07/11/24 PT Goal 1 Time Frame: 2 weeks PT Goal 2: Pt will demonstrate cuxekq-ztn-[id number] transfers with min assist PT Goal 2 Established Date: 07/11/24 PT Goal 2 Time Frame: 2 weeks PT Goal 3: Pt will perform ctg-vinej-[id number] transfers with min assist. PT Goal 3 Established Date: 07/11/24 PT Goal 3 Time Frame: 2 weeks 07/14/24 Goal met PT Goal 4: Pt will ambulate 30 ft or more using rolling walker with min assist. PT Goal 4 Established Date: 07/11/24 PT Goal 4 Time Frame: 2 weeks 07/14/24 Goal met PT Goal 5: Pt/caregiver will verbalize and demonstrate understanding of post-op precautions and a basic HEP. PT Goal 5 Established Date: 07/11/24 PT Goal 5 Time Frame: 2 weeks Goal ongoing Written by Consuelo Kumar on 07/14/24 at 2:12 PM. Cosigned by Victor M Anderson at 07/14/2024 3:27 PM EDT Associated attestation - Victor M Anderson - 07/14/2024 3:27 PM EDT Read and agreed with below: Victor M Anderson, PT, DPT * Progress Notes - Urmila Velázquez - 07/14/2024 12:20 PM EDT Occupational Therapy Treatment Patient Name: Juliet Tim Today's Date: 07/14/2024 OT Discharge Recommendations: Home with assistance, Outpatient PT, Outpatient OT Equipment Recommended: Rolling walker Subjective My breathing is doing much better but I get tired real easy but I'm 79 years old. Participants in Care Family/Caregiver Present: Yes Family/Caregiver: Spouse, Adult Daughter, Other (Specify) (Son-in-law) Presentation Oxygen Therapy: None (Room air) Lines and Tubes: Intravenous access Pre-Session: Sitting in chair, Lines intact, Chair alarm Pre-Session Comments: RN agreeable to OT session. Post-Session: Sitting in chair, Chair alarm, Lines intact, Call light in reach, RN notified Post-Session Comments: Pt positioned for comfort with all needs met. Orthoses: (Abdominal binder) Precautions Medical Precautions: Fall precautions, Post-Surgical precautions Post-Surgical Precautions: Abdominal Objective Pain Pt reported she was having gas pains, not rated. Delirium Screening Mason Agitation Sedation Scale (RASS): Alert and calm Confusion Assessment Method-ICU (CAM-ICU/PCAM-ICU) Feature 3: Altered Level of Consciousness: Negative Cognition Cognition Overall Cognitive Status: Within Functional Limits Arousal/Alertness: Appropriate responses to stimuli Mood/Behavior: Alert Orientation Level: Oriented X4 Single Step Commands: Consistently, 100% of the time Multi-Step Commands: Consistently, 100% of the time Method of Communication: Verbal Safety Judgment: Decreased awareness of need for assistance Awareness of Errors: Assistance required to identify errors made, Assistance required to correct errors made Deficit Awareness: Fully aware of deficits Attention Span: Attends with cues to redirect Transfers Transfer Exam: Sit to stand Level of [place]: Stand-by assist Physical/Nonphysical Assist: Verbal Cues, Minimal cues, Nonverbal cues (demo/gestures) Assistive Device: (Rollator and RW) Transfer Exam: Stand to Sit Level of [place]: Stand-by assist Physical/Nonphysical Assist: Minimal cues, Nonverbal cues (demo/gestures), Verbal Cues Assistive Device: (Rollator and RW) Toilet Transfer Level of [place]: Stand-by assist Physical/Nonphysical Assist: Minimal cues, Verbal Cues Type of Transfer: Ambulation, To toilet Assistive Device: Grab bar, Rollator Self-Care Interventions Self Care/Home Management (ADLs) Time Entry: 55 Therapist set up environment to facilitate safe mobility. Pt completed sit to stand via Rollator with SBA and ambulated 15 ft x 2 with CGA and increased time due to weakness and SOA. Pt completed toilet transfer and stood at the sink for 5 min to complete grooming tasks with CGA. Pt transferred to her chair and required prolonged rest break due to increased fatigue and SOA. Pt then stood via RW and ambulated 30 ft around the room with increased time and CGA to increase strength and endurance for accessing bathroom, kitchen, and bedroom. Pt transferred back to the chair and reported increased SOA with O2-95% on RA. Pt reported fatigue 9/10 on RPE scale. Pt was left sitting in the chair with p illows for comfort. senior business manager came in during session and talked with pt and therapist about discharge and DME for home. Grooming Grooming Level of Assistance: Setup, SBA Grooming Where Assessed: Standing sinkside Grooming Interventions: Pt stood at the sink to wash her hands and face with s/u. Pt brushed her hair sitting in the chair after therapsit got her a brush. Lower Extremity Dressing Sock Level of Assistance: Dependent LE Dressing Where Assessed: Chair level LE Dressing Interventions: Pt requires Dep A to adjust and pull up socks. Pt reports she spencer not wear socks at home and wears slip on shoes. Toileting Toileting Level of Assistance: Minimum assistance Where Assessed: Toilet Toileting Interventions: Pt was able to manage clothing and compleed pericare with Min A to make sure she was clean. Therapeutic Exercise (15 minutes) Therapist created and printed HEP. Pt was given red theraband and educated on B UE protraction/retraction, shoulder flex/ext, Abd/Add, horizontal Abd/Add, and elbow flex/ext x 10 reps to increase strength for functional tasks and transfers. Pt was given a blue sponge to increase ammunition assembly laborer strength in B hands. Assessment Pt demo decreased activity tolerance and fatigues quickly. Pt completed toileting and grooming tasks while standing at the sink with CGA/SBA. Pt has assist at home for 8 hours a day 5 days a week. Pt's recs changed to home with assist. OT Recommendations Discharge Destination: Home with assistance, Outpatient PT, Outpatient OT Discharge Equipment: Rolling walker Plan Continue OT plan of care Goals OT GOAL DETAILS Goal Established Date Time Frame Goal Status OT Goal 1: Patient/Family/Caregiver will be independent in bilateral upper extremity home exercise program to promote increased strength required for engagement in higher level self-cares/mobility. 07/11/24 2 weeks OT Goal 2: Patient will complete 2-step grooming routine in standing position with contact-guard assistance and AE as needed. 07/11/24 2 weeks OT Goal 3: Patient will complete total body dressing with minimum assistance and AE as needed. 07/11/24 2 weeks OT Goal 4: Patient will complete toileting routine (navigation < > bathroom, transfer < > standard toilet, manage clothing, and complete jose-care hygiene) with minimum assistance and AE as needed. 07/11/24 Written by Urmila Velázquez on 07/14/24 at 2:35 PM. Cosigned by Milla Rosado at 07/14/2024 4:11 PM EDT Associated attestation - Milla Rosado - 07/14/2024 4:11 PM EDT I attest that I discussed this patient with ABBEY Foley and am in agreement with current OTPOC/all documentation produced for this patient on this date. Thank you, Milla Rosado MS, OTR/L * Consults - Kyleigh Allen RD - 07/14/2024 10:21 AM EDT Adult Nutrition Evaluation Note Juliet iTm 79 y.o. female CSN: [id number] Room/Bed 121/121A Nutrition evaluation type: assessment Reason for evaluation: [facility] Hospital course: 79 y o F with colon mass, admitted 07/10/24 s/p lap right colectomy. Past medical/ surgical history: Medical History[1], heart failure Surgical History[2] Social history: Social History[3] Additional comments: 07/14: Per notes, tolerating diet Vitals and Basic Assessment: BP: (!) 146/76 Temp: 36.5 ??C (97.7 ??F) Oxygen Therapy: None (Room air) O2 Delivery Method: Nasal cannula [place] Coma Scale Score: 15 Patricio Scale Score: 21 Most Recent BM Date: 07/13/24 GI Symptoms: Nausea Edema: Right lower extremity, Left lower extremity Skin: umbilicus lap surgical wound Allergies: NKA Medications: Current Medications[4] Meds were reviewed: Yes Labs: Results from last 7 days Lab Units 07/14/24 03507/13/24 0446 07/12/24 0616 WBC 10*3/uL 9.18 10.49* 10.69* HEMOGLOBIN g/dL 10.7* 11.1* 9.7* HEMATOCRIT % 34.7 36.2 32.3* PLATELETS 10*3/uL 245 227 183 Results from last 7 days Lab Units 07/14/24 03507/13/24 0446 07/12/24 0547 07/11/24 0614 SODIUM mmol/L 138 138 138 138 POTASSIUM mmol/L 4.3 4.6 4.7 4.5 CHLORIDE mmol/L 105 109* 108* 109* CO2 mmol/L 22 18* 21* 16* BUN mg/dL 28* 26* 26* 23 CREATININE mg/dL 1.34* 1.15* 1.18* 0.83 EGFR mL/min/1.73m*2 39.9 48.0 46.5 70.9 GLUCOSE mg/dL 97 90 122* 733* CALCIUM mg/dL 9.1 8.6* 8.6* 7.6* PHOSPHORUS mg/dL -- 2.1* 2.8 2.2* -BUN & Creat elevated - monitor trends Magnesium, Plasma Date Value Ref Range Status 07/13/2024 2.3 1.9 - 2.4 mg/dL Final Lab Results Component Value Date ALT 17 06/20/2024 AST 19 06/20/2024 ALKPHOS 85 06/20/2024 BILITOT 0.4 06/20/2024 Lab Results Component Value Date ALBUMIN 4.0 06/20/2024 No results found for: PREALBUMIN Lab Results Component Value Date CRP 234.8 (H) 07/13/2024 Lab Results Component Value Date HGBA1C 4.5 (L) 03/21/2024 No results found for: CHOL No results found for: HDL No results found for: LDLCALC No results found for: TRIG Anthropometrics: Height: 160 cm Weight: 105 kg IBW: 52.3 kg %IBW: 200.8 Adjusted Body Weight: 65.5 kg BMI: 41.1 Wt evaluation: Extreme Obesity Weight History: Wt Readings from Last 30 Encounters: 07/11/24 105 kg (232 lb) 06/22/24 105 kg (232 lb) Estimated Needs: Current Nutrition Intake: Diet: GI Soft Supplements: Impact AR TID Intake: no po intake recorded since admit 4 days ago Nutrition Support: None at this time Diet Experience & Nutrition History: Diet Education: Will monitor Pertinent Home Medications: Ca+D, FeSO4, Lasix, kProtonix, Pravastatin Nutrition Focused Physical Exam: Physical exam performed on (date): pending Assessment of Malnutrition: Nutrition Problem: Increased nutrient needs (protein) related to increased requirement for healing as evidenced by recent surgery. Status of Nutrition Diagnosis: New Nutrition Interventions and Recommendations: -Continue GI Soft diet as tolerated (liberalized in effort to increase po intake) -Adjusting Impact AR to BID -Please record po intake in EMR -Recommend MVI with minerals daily Nutrition Monitoring and Goals: -Monitor tolerance and adequacy of po intake / enteral infusion, wt changes, bowel fxn, labs, skin integrity; and follow up per acuity -Pt will tolerate and consume >/= 75% of most meals & supplements -NFPE on follow up Acuity Level: 3 Kyleigh Allen, RD, LD [1] Past Medical History: Diagnosis Date Arthritis High cholesterol Hypertension [2] Past Surgical History: Procedure Laterality Date CARDIAC CATHETERIZATION 02/2024 no PCI CARDIAC PACEMAKER PLACEMENT COLONOSCOPY CORONARY ANGIOPLASTY WITH STENT PLACEMENT x4 ~ 2013 HYSTERECTOMY KNEE SURGERY MOUTH SURGERY SHOULDER SURGERY TUBAL LIGATION [3] Social History Tobacco Use Smoking status: Never Passive exposure: Never Smokeless tobacco: Never Vaping Use Vaping status: Never Used Substance Use Topics Alcohol use: Not Currently Drug use: Never [4] Current Facility-Administered Medications: acetaminophen (Tylenol) tablet 500 mg, 500 mg, Oral, q6h, Stenotypist, Kyleigh T, RIVET SPINNER, DNP, 500 mg at07/14/24 0948 [START ON 07/15/2024] furosemide (Lasix) tablet 20 mg, 20 mg, Oral, Daily, Vangie Nowak MD heparin (porcine) injection 7,500 Units, 7,500 Units, Subcutaneous, q8h, Sylvie Mills MD, 7,500 Units at 07/14/24 0810 HYDROcodone-acetaminophen (Bartlett) 5-325 MG per tablet 7.5 mg of hydrocodone, 7.5 mg of hydrocodone,Oral, q4h PRN, Stenotypist, Kyleigh T, RIVET SPINNER, DNP, 7.5 mg of hydrocodone at 07/14/24 0820 isosorbide mononitrate ER (Imdur) 24 hr tablet 60 mg, 60 mg, Oral, Daily, Stenotypist Kyleigh T, RIVET SPINNER, DNP, 60 mg at 07/14/24 0810 methocarbamol (Robaxin) tablet 500 mg, 500 mg, Oral, q6h ANTOINE, Vangie Nowak MD, 500 mg at 07/14/24 0527 mirabegron ER (Myrbetriq) tablet 50 mg, 50 mg, Oral, Daily, Sylvie Mills MD, 50 mg at 07/14/24 0811 mupirocin (Bactroban) 2 % ointment 1 Application, 1 Application, Each Nostril, BID, Mata Smalls MD, 1 Application at 07/14/24 0811 nebivolol (Bystolic) tablet 5 mg, 5 mg, Oral, Daily, Vangie Nowak MD, 5 mg at 07/13/242032 ondansetron ODT (Zofran-ODT) disintegrating tablet 4 mg, 4 mg, Oral, q6h PRN, 4 mg at 07/14/24 0404OR ondansetron (Zofran) injection 4 mg, 4 mg, Intravenous, q6h PRN, 4 mg at 07/13/24 0440 OR ondansetron (Zofran) 4 MG/5ML solution 4 mg, 4 mg, Oral, q6h PRN, Vangie Nowak MD pantoprazole (Protonix) EC tablet 40 mg, 40 mg, Oral, BID, Sylvie Mills MD, 40 mg at 07/14/24809 pravastatin (Pravachol) tablet 80 mg, 80 mg, Oral, Nightly, Vangie Nowak MD, 80 mg at 07/13/242032 pregabalin (Lyrica) capsule 75 mg, 75 mg, Oral, BID, Vangie Nowak MD, 75 mg at 07/14/24 0810 * Progress Notes - Sylvie Mills MD - 07/14/2024 8:52 AM EDT Images from the original note were not included. [facility] Department of Surgery Division of Colon & Rectal Surgery Surgery Progress Note 07/14/24 Juliet Tim Full Code Subjective Subjective: HPI Juliet Tim is a 79 y.o. female with a H heart failure s/p heart catheterization, HTN, arthritis, and HLD that presents for evaluation of colon mass found on Colonoscopy 06/[address] Cohen. now s/p laparoscopic, hand assisted, right colectomy on 07/10/24. Juliet Tim is a 79 y.o. female with a H heart failure s/p heart catheterization, HTN, arthritis, and HLD that presents for evaluation of colon mass found on Colonoscopy 06/[address] Cohen. now s/p laparoscopic, hand assisted, right colectomy on 07/10/24. 07/10: lap, hand assisted, right colectomy ON: lost only IV access Interval: NAEO. Patient is doing well, tolerating their diet, pain is under control. Denies nausea,vomiting, chest pain, shortness of breath. Encouraged IS and OOB. She understands the risks of no IV access and refuses placement of a new one. Edited by: Sylvie Mills MD at 07/14/2024 0847 Review of Systems: Relevant review of systems was obtained as able and is negative unless stated above in HPI. Objective Objective: Vital signs: Vitals: 07/14/24 0808 BP: (!) 146/76 Pulse: 66 Resp: 18 Temp: 36.5 ??C (97.7 ??F) SpO2: 91% Physical Exam: Physical Exam Constitutional: Appearance: Normal appearance. HENT: Head: Normocephalic and atraumatic. Cardiovascular: Rate and Rhythm: Normal rate and regular rhythm. Pulmonary: Effort: Pulmonary effort is normal. Abdominal: General: There is no distension (moderate, improving). Palpations: Abdomen is soft. Tenderness: There is abdominal tenderness (appropriate). There is no guarding. Comments: Abdominal binder in place. Incisions c/d/intact, covered with dermabond and open to air. Has some bruising around incisions. Skin: General: Skin is warm. Neurological: General: No focal deficit present. Mental Status: She is alert. Mental status is at baseline. No intake or output data in the 24 hours ending 07/14/24 0856 Lines/Drains/Tubes: Patient Lines/Drains/Airways Status Active Airway None Output by Drain (mL) 07/12/24 0700 - 07/12/24 1859 07/12/24 1900 - 07/13/24 0659 07/13/24 0700 - 07/13/24 1859 07/13/24 1900 - 07/14/24 0659 07/14/24 0700 - 07/14/24 0856 Patient has no LDAs of requested type attached. Labs in last 18 hours: CBC WBC 9.18 Hb 10.7 (L) Plt 245 Hct 34.7 ANC ?? INR ??, PTT ??, Anti-Xa ?? MCV 86 BMP Na 138 Cl 105 BUN 28 (H) Glu 97 K 4.3 Co2 22 Cr 1.34 (H) Ca 9.1 iCa ?? Mg ??, Phos ?? Lactate ?? LFT AST ?? AlkPhos ?? T Prot ?? ALK ?? Bili ?? Alb ?? D.Bili ?? Lab Trends: H/H Results from last 7 days Lab Units 07/14/24 0359 07/13/24 0446 07/12/24 0616 HEMOGLOBIN g/dL 10.7* 11.1* 9.7* HEMATOCRIT % 34.7 36.2 32.3* INR Cr Results from last 7 days Lab Units 07/14/24 0359 07/13/24 0446 07/12/24 0547 CREATININE mg/dL 1.34* 1.15* 1.18* Lactate No lab exists for component: LACTTEVEN Radiographic Interpretation: No relevant imaging to review. Medications reviewed. Vital signs reviewed. Labs reviewed. Assessment/Plan Assessment and Plan: Medical Problems Problem List * (Principal) Malignant neoplasm of colon 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 (BMI) of 40.0 or higher (CMS/HCC) Coronary artery disease involving [place] coronary artery of [place] heart without angina pectoris Dyspnea on exertion Malignant neoplasm of colon, unspecified part of colon (CMS/HCC) Present on Admission: Malignant neoplasm of colon, unspecified part of colon (CMS/HCC) Plan Today: Juliet Tim is a 79 y.o. female with a H heart failure s/p heart catheterization, HTN, arthritis, and HLD that presents for evaluation of colon mass found on Colonoscopy 06/[address] Cohen now s/p laparoscopic, hand assisted, right colectomy on 07/10/24. Juliet Tim is a 79 y.o. female with a H heart failure s/p heart catheterization, HTN, arthritis, and HLD that presents for evaluation of colon mass found on Colonoscopy 06/[address] Cohen. now s/p laparoscopic, hand assisted, right colectomy on 07/10/24. 07/10: lap, hand assisted, right colectomy ON: lost only IV access Interval: NAEO. Patient is doing well, tolerating their diet, pain is under control. Denies nausea,vomiting, chest pain, shortness of breath. Encouraged IS and OOB. She understands the risks of no IV access and refuses placement of a new one. Edited by: Sylvie Mills MD at 07/14/2024 0847 - PT/OT to reevaluate today - GI soft diet, impact AR vanilla - restart home furosemide - AM Labs - IS and OOB - MMPC - on home narcotic regimen - subcutaneous heparin Dispo: Continue Current Level of Care Sylvie Mills MD PGY-1, Department of Anesthesiology Cosigned by Mata Smalls MD at 07/15/2024 8:06 AM EDT * Consults - Pati Pate RN - 07/13/2024 8:38 AM EDT Epidural catheter removed yesterday. Catheter site clean, dry, intact, and open to air at this time. Acute Pain will sign off. Please Contact Acute Pain Service with any additional questions or concerns via [phone]. * Progress Notes - Sylvie Mills MD - 07/13/2024 7:46 AM EDT Images from the original note were not included. [facility] Department of Surgery Division of Colon & Rectal Surgery Surgery Progress Note 07/13/24 Juliet Tim Full Code Subjective Subjective: HPI Juliet Tim is a 79 y.o. female with a H heart failure s/p heart catheterization, HTN, arthritis, and HLD that presents for evaluation of colon mass found on Colonoscopy 06/[address] Cohen. now s/p laparoscopic, hand assisted, right colectomy on 07/10/24. Juliet Tim is a 79 y.o. female with a PMH heart failure s/p heart catheterization, HTN, arthritis, and HLD that presents for evaluation of colon mass found on Colonoscopy 06/[address] Cohen. now s/p laparoscopic, hand assisted, right colectomy on 07/10/24. 07/10: lap, hand assisted, right colectomy ON: NAEO Interval: NAEO. PT/OT saw yesterday with subacute rehab recs. Doing okay with pain home regimen. Denies nausea, vomiting, shortness of breath, chest pain. Continues to endorse having gas and having bowel movements. Edited by: Sylvie Mills MD at 07/13/2024 0750 Review of Systems: Relevant review of systems was obtained as able and is negative unless stated above in HPI. Objective Objective: Vital signs: Vitals: 07/13/24 0421 BP: 120/73 Pulse: 64 Resp: Temp: 36.5 ??C (97.7 ??F) SpO2: 91% Physical Exam: Physical Exam Constitutional: Appearance: Normal appearance. HENT: Head: Normocephalic and atraumatic. Cardiovascular: Rate and Rhythm: Normal rate and regular rhythm. Pulmonary: Effort: Pulmonary effort is normal. Abdominal: General: There is distension (moderate). Palpations: Abdomen is soft. Tenderness: There is abdominal tenderness (appropriate). There is no guarding. Comments: Incisions c/d/intact, covered with dermabond and open to air. Has some bruising around incisions. Skin: General: Skin is warm. Neurological: General: No focal deficit present. Mental Status: She is alert. Mental status is at baseline. Intake/Output Summary (Last 24 hours) at 07/13/2024 0750 Last data filed at 07/12/2024 1800 Gross per 24 hour Intake -- Output 1150 ml Net -1150 ml Lines/Drains/Tubes: Patient Lines/Drains/Airways Status Active Airway None Output by Drain (mL) 07/11/24 0700 - 07/11/24 1859 07/11/24 1900 - 07/12/24 0659 07/12/24 0700 - 07/12/24 1859 07/12/24 1900 - 07/13/24 0659 07/13/24 0700 - 07/13/24 0750 Patient has no LDAs of requested type attached. Labs in last 18 hours: CBC WBC 10.49 (H) Hb 11.1 (L) Plt 227 Hct 36.2 ANC ?? INR ??, PTT ??, Anti-Xa ?? MCV 87 BMP Na 138 Cl 109 (H) BUN 26 (H) Glu 90 K 4.6 Co2 18 (L) Cr 1.15 (H) Ca 8.6 (L) iCa ?? Mg 2.3, Phos 2.1 (L) Lactate ?? LFT AST ?? AlkPhos ?? T Prot ?? ALK ?? Bili ?? Alb ?? D.Bili ?? Lab Trends: H/H Results from last 7 days Lab Units 07/13/24 0446 07/12/24 0616 07/11/24 0614 HEMOGLOBIN g/dL 11.1* 9.7* 10.5* HEMATOCRIT % 36.2 32.3* 34.7 INR Cr Results from last 7 days Lab Units 07/13/24 0446 07/12/24 0547 07/11/24 0614 CREATININE mg/dL 1.15* 1.18* 0.83 Lactate No lab exists for component: LACTTEVEN Radiographic Interpretation: No relevant imaging to review. Medications reviewed. Vital signs reviewed. Labs reviewed. Assessment/Plan Assessment and Plan: Medical Problems Problem List * (Principal) Malignant neoplasm of colon 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 (BMI) of 40.0 or higher (CMS/HCC) Coronary artery disease involving [place] coronary artery of [place] heart without angina pectoris Dyspnea on exertion Malignant neoplasm of colon, unspecified part of colon (CMS/HCC) Present on Admission: Malignant neoplasm of colon, unspecified part of colon (CMS/HCC) Plan Today: Juliet Tim is a 79 y.o. female with a H heart failure s/p heart catheterization, HTN, arthritis, and HLD that presents for evaluation of colon mass found on Colonoscopy 06/[address] Cohen now s/p laparoscopic, hand assisted, right colectomy on 07/10/24. Juliet Tim is a 79 y.o. female with a H heart failure s/p heart catheterization, HTN, arthritis, and HLD that presents for evaluation of colon mass found on Colonoscopy 06/[address] Cohen. now s/p laparoscopic, hand assisted, right colectomy on 07/10/24. 07/10: lap, hand assisted, right colectomy ON: NAEO Interval: NAEO. PT/OT saw yesterday with subacute rehab recs. Doing okay with pain home regimen. Denies nausea, vomiting, shortness of breath, chest pain. Continues to endorse having gas and having bowel movements. Edited by: Sylvie Mills MD at 07/13/2024 0750 - GI soft diet, impact AR vanilla - [facility] and [facility]OB [facility] - on home narcotic regimen - subcutaneous heparin Edited by: Sylvie Mills MD at 07/11/2024 1218 - Discharge teaching and planning Dispo: Continue Current Level of Care Cosigned by Mata Smalls MD at 07/13/2024 3:19 PM EDT * Progress Notes - Maxine Pompa RN - 07/12/2024 3:23 PM EDT Case Management Adult Progress Note Juliet Tim 79 y.o. female CSN: [id number] Admission: 07/10/2024 11:10 AM Primary Problem: Malignant neoplasm of colon Anticipated Discharge Date: unknown Has Discharge Plans Changed? No Medicare Second Notice: Housing Circumstances: Not Applicable Housing Circumstances Action Taken: Other Medically Ready for Discharge: Anticipated in 2-4 Days Additional Comments Spoke to MD this am, pt not medically ready for d/c at this time. Anticipate patient to possibly beready for discharge within 72 hrs. Met with pt at to discuss subacute rehab recs. Explained rehab to pt, she has declined and would like to return home with services. Referrals sent via careport to all agencies in her county, awaiting acceptance/denial. Will continue to follow and assist with d/c needs as they arise. Maxine Pompa RN * Consults - Mariajose Rodriguez RN - 07/12/2024 2:00 PM EDT Acute Pain Service Follow-Up Evaluation Juliet Tim is a 79 y.o. female Visit Type: Routine Current Pain Treatment: Epidural Capped 08:44 07/12/24 T8-T9 12 cm @ skin Laparoscopic colectomy with possible ileostomy. Heparin 7500units. Follow-Up: Follow-up reason: APS rounds Pain Rating (0-10): 8 patient is waiting for a dose of PO pain medication Comfort/ Acceptable Pain Level: 4 Epidural catheter removed @ 14:00 tip intact. Acute Pain service will continue to monitor catheter site at least 12 hrs post removal. Follow-Up: Follow-Up: Site check tomorrow. Acute Pain Service Comments: Pain Service comments: Please Contact Acute Pain Service with any additional questions or concerns via [employer] [phone]. * Query Clarification Note - Mata Smalls MD - 07/12/2024 12:37 PM EDT Physician Clarification Anemia is documented in the medical record (07/10 Anesthesia Preprocedure Evaluation). Please provide additional specificity regarding the type/etiology and acuity of the anemia you are evaluating, treating, and/or monitoring such as: []Acute blood loss anemia []Acute on chronic blood loss anemia [x]Acute blood loss anemia with baseline chronic anemia [x]Anemia of chronic disease (Indicate if neoplastic disease, CKD, or other) [x]Chronic iron deficiency anemia due to blood loss []Other (please specify) This documentation will become part of the patient's medical record. * Query Clarification Note - Mata Smalls MD - 07/12/2024 12:37 PM EDT Physician Clarification Please clarify which of the following accurately represents the patient's renal status: [x]Acute kidney injury []Other (please specify) []Labs not significant This documentation will become part of the patient's medical record. * Consults - Mariajose Rodriguez RN - 07/12/2024 9:43 AM EDT Acute Pain Service Follow-Up Evaluation Juliet Tim is a 79 y.o. female Visit Type: Routine Current Pain Treatment: Epidural Dilaudid 10 mcg/ml & Bupivacaine 1.25 mg/ml; 03/25/09; T8-T9 12 cm @ skin Laparoscopic colectomy with possible ileostomy Follow-Up: Follow-up reason: APS rounds Pain Rating (0-10): 5 Comfort/ Acceptable Pain Level: 3-4 Epidural capped @ 08:44. Follow-Up: Follow-Up: Acute Pain service will continue to follow. Acute Pain Service Comments: Pain Service comments: Plan to discontinue when appropriate. Please Contact Acute Pain Service with any additional questions or concerns via [employer] [phone]. * Progress Notes - Sylvie Mills MD - 07/12/2024 8:07 AM EDT Images from the original note were not included. [facility] Department of Surgery Division of Colon & Rectal Surgery Surgery Progress Note 07/12/24 Juliet Tim Full Code Subjective Subjective: HPI Juliet Tim is a 79 y.o. female with a H heart failure s/p heart catheterization, HTN, arthritis, and HLD that presents for evaluation of colon mass found on Colonoscopy 06/[address] Cohen. now s/p laparoscopic, hand assisted, right colectomy on 07/10/24. Juliet Tim is a 79 y.o. female with a PMH heart failure s/p heart catheterization, HTN, arthritis, and HLD that presents for evaluation of colon mass found on Colonoscopy 06/[address] Cohen. now s/p laparoscopic, hand assisted, right colectomy on 07/10/24. 07/10: lap, hand assisted, right colectomy ON: NAEO Interval: NAEO. Patient says she had a decent night. They had some nausea yesterday with pudding, pain is under control. She is amenable to possibly coming off epidural today. Denies nausea presently, vomiting, chest pain, shortness of breath. Encouraged IS and OOB. Void trial today. Advance to GI soft diet today. Endorses passing gas, denies bowel movement. Edited by: Sylvie Mills MD at 07/12/2024 0810 Review of Systems: Relevant review of systems was obtained as able and is negative unless stated above in HPI. Objective Objective: Vital signs: Vitals: 07/12/24 0806 BP: 120/75 Pulse: 66 Resp: Temp: 36.4 ??C (97.5 ??F) SpO2: 95% Physical Exam: Physical Exam Constitutional: Appearance: Normal appearance. HENT: Head: Normocephalic and atraumatic. Cardiovascular: Rate and Rhythm: Normal rate and regular rhythm. Pulmonary: Effort: Pulmonary effort is normal. Comments: Nasal cannula Abdominal: General: There is distension (moderate). Palpations: Abdomen is soft. Tenderness: There is abdominal tenderness (appropriate). There is no guarding. Comments: Incisions c/d/intact, covered with dermabond and open to air. Has some bruising around incisions. Genitourinary: Comments: Holland in place Skin: General: Skin is warm. Neurological: General: No focal deficit present. Mental Status: She is alert. Mental status is at baseline. Intake/Output Summary (Last 24 hours) at 07/12/2024 0810 Last data filed at 07/11/2024 0832 Gross per 24 hour Intake -- Output 450 ml Net -450 ml Lines/Drains/Tubes: Patient Lines/Drains/Airways Status Active Airway None Output by Drain (mL) 07/10/24 0700 - 07/10/24 1859 07/10/24 1900 - 07/11/24 0659 07/11/24 0700 - 07/11/24 1859 07/11/24 1900 - 07/12/24 0659 07/12/24 0700 - 07/12/24 0810 Requested LDAs do not have output data documented. Labs in last 18 hours: CBC WBC 10.69 (H) Hb 9.7 (L) Plt 183 Hct 32.3 (L) ANC ?? INR ??, PTT ??, Anti-Xa ?? MCV 89 BMP Na 138 Cl 108 (H) BUN 26 (H) Glu 122 (H) K 4.7 Co2 21 (L) Cr 1.18 (H) Ca 8.6 (L) iCa ?? Mg 2.3, Phos 2.8 Lactate ?? LFT AST ?? AlkPhos ?? T Prot ?? ALK ?? Bili ?? Alb ?? D.Bili ?? Lab Trends: H/H Results from last 7 days Lab Units 07/12/24 0616 07/11/24 0614 07/10/24 1259 HEMOGLOBIN g/dL 9.7* 10.5* 12.4 HEMATOCRIT % 32.3* 34.7 39.3 INR Cr Results from last 7 days Lab Units 07/12/24 0547 07/11/24 0614 CREATININE mg/dL 1.18* 0.83 Lactate No lab exists for component: LACTTEVEN Radiographic Interpretation: No relevant imaging to review. Medications reviewed. Vital signs reviewed. Labs reviewed. Assessment/Plan Assessment and Plan: Medical Problems Problem List * (Principal) Malignant neoplasm of colon 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 (BMI) of 40.0 or higher (CMS/HCC) Coronary artery disease involving [place] coronary artery of [place] heart without angina pectoris Dyspnea on exertion Malignant neoplasm of colon, unspecified part of colon (CMS/HCC) Present on Admission: Malignant neoplasm of colon, unspecified part of colon (CMS/HCC) Plan Today: Juliet Tim is a 79 y.o. female with a PMH heart failure s/p heart catheterization, HTN, arthritis, and HLD that presents for evaluation of colon mass found on Colonoscopy 06/[address] Cohen. now s/p laparoscopic, hand assisted, right colectomy on 07/10/24. Juliet Tim is a 79 y.o. female with a PMH heart failure s/p heart catheterization, HTN, arthritis, and HLD that presents for evaluation of colon mass found on Colonoscopy 06/[address] Cohen. now s/p laparoscopic, hand assisted, right colectomy on 07/10/24. 07/10: lap, hand assisted, right colectomy ON: NAEO Interval: NAEO. Patient says she had a decent night. They had some nausea yesterday with pudding, pain is under control. She is amenable to possibly coming off epidural today. Denies nausea presently, vomiting, chest pain, shortness of breath. Encouraged IS and OOB. Void trial today. Advance to GI soft diet today. Endorses passing gas, denies bowel movement. Edited by: Sylvie Mills MD at 07/12/2024 0810 - GI soft diet, impact AR vanilla - IVF dced - Void trial today - wean O2 as tolerated - IS and OOB - MMPC - epidural cap trial today - subcutaneous heparin Edited by: Sylvie Mills MD at 07/11/2024 1218 - Discharge teaching and planning Dispo: Continue Current Level of Care Sylvie Mills MD PGY-1, Department of Anesthesiology Cosigned by Mata Smalls MD at 07/12/2024 12:47 PM EDT * Consults - Tu Bolden RN - 07/11/2024 9:02 PM EDT Acute Pain Service Follow-Up Evaluation Visit Type: Routine Current Pain Treatment: Follow-Up: Follow-up reason: APS rounds Location: abdominal region Type: post-operative Pain Rating (0-10): 6 Comfort/ Acceptable Pain Level: 3 Frequency/ Quality: frequent Treatment per Protocol: Patient received 28 doses in 24 hours 75 ml with epidural. Encouraged patient to push epidural painbutton. Follow-Up: Follow-Up: Will continue to monitor and adjust as needed. Acute Pain Service Comments: Pain Service comments: Will continue CLARK DRIVER and/ or infusion until primary service decides it is appropriate to discontinue CLARK DRIVER and/ or infusion. * Progress Notes - Maxine Pompa RN - 07/11/2024 2:45 PM EDT Case Management Adult Initial Progress Note Juliet Tim 79 y.o. female CSN: [id number] Admission: 07/10/2024 11:10 AM Primary Problem: Malignant neoplasm of colon Highway Patrol Officer reviewed chart and spoke with patient at to complete this Initial Case Management Assessment. PCP: Jose Mendoza MD Emergency Contact: Extended Emergency Contact Information Primary Emergency Contact: IWONA TIM Mobile Relation: Spouse Preferred language: Swedish Secondary Emergency Contact: BRIGETTE MILLER Mobile Relation: Daughter Preferred language: Swedish Insurance: Primary Visit Coverage Payer Plan Sponsor Code Group Number Group Name [employer] MEDICARE HU[employer]NA MEDICARE [id number] Primary Visit Coverage Subscriber Subscriber ID Subscriber Name Subscriber N Subscriber Address [id number] Juliet Tim [id number] [place] [address] Secondary Visit Coverage Payer Plan Sponsor Code Group Number Group Name [facility] Secondary Visit Coverage Subscriber Subscriber ID Subscriber Name Subscriber N Subscriber Address [id number] JULIET TIM [id number] [place] [address] Patient information: Primary Caregiver: Self Accompanied by/Relationship: self Support System: Immediate family Daily Living Activities: Functional Status: Independent Living Arrangements: Spouse/Significant other, Children Type of Residence: Other (Comment) ([facility] home) [address] [facility] [id number] Current DME: Equipment Currently Used at Home: walker, rollator, wheelchair, manual, shower chair Housing Circumstances-Z Codes: Housing Circumstances (select all that apply): None Applicable Anticipated Discharge Date: unknown Patient's Discharge Goal: home Assistance Available at Discharge: Discharge Transport: daughter Follow Up Transport: Home Health / Home Infusion / Outpatient Dialysis Services: none Living Will/Advance Directive/Power of Panel Edge Painter /Guardian: Have you reviewed your Advance Directive and is it valid for this stay?: No Advance Directive: Patient would not like information Information Provided on Healthcare Directives: No Pre-existing DNR/DNI Order: No Patient Requests Assistance: No Additional Comments: Social Drivers of Health Food Insecurity: No Food Insecurity (07/11/2024) Hunger Vital Sign Worried About Running Out of Food in the Last Year: Never true Ran Out of Food in the Last Year: Never true Alcohol Use: Not At Risk (03/21/2024) Received from [facility] Frequency of Alcohol Consumption: Never Average Number of Drinks: Patient does not drink Frequency of Binge Drinking: Never Housing Stability: Unknown (07/11/2024) Housing Stability Vital Sign Unable to Pay for Housing in the Last Year: No Number of Times Moved in the Last Year: Not on file Homeless in the Last Year: No Tobacco Use: Low Risk (07/10/2024) Patient History Smoking Tobacco Use: Never Smokeless Tobacco Use: Never Passive Exposure: Never Transportation Needs: No Transportation Needs (07/11/2024) PRAPARE - Transportation Lack of Transportation (Medical): No Lack of Transportation (Non-Medical): No Depression: Not on file Utilities: Not At Risk (07/11/2024) Utilities Threatened with loss of utilities: No Stress: Not on file Intimate Partner Violence: Not At Risk (07/11/2024) Humiliation, Afraid, Rape, and Kick questionnaire Fear of Current or Ex-Partner: No Emotionally Abused: No Physically Abused: No Sexually Abused: No Physical Activity: Not on file Social Connections: Not on file Financial Resource Strain: Not on file Pt admitted for colon cancer, colectomy. Met with pt at , verified information. Pt has a PCP, Jose Mednoza, with the last visit approx 3 months ago. Pt lives with her and 9 yo grandson, her is able to provide assistance at home if needed. Pt has [place] Medicare and [place] Medicaid Tr aditional as her insurance. Transportation home will be provided by her daughter. Pt has listed her , Iwona Tim, as her emergency contact, phone # [phone], her daughter, Brigette Miller, phone # [phone], and her other daughter, Deann Salvador, phone # [phone]. [facility] Pt currently has a rollator, w/c, and shower chair that she uses. She is not receiving HH services. Will continue to follow and assist with d/c needs as they arise. Maxine Pompa RN * Progress Notes - Sylvie Mills MD - 07/11/2024 12:18 PM EDT Images from the original note were not included. [facility] Department of Surgery Division of Colon & Rectal Surgery Surgery Progress Note 07/11/24 Juliet Tim Full Code Subjective Subjective: HPI Juliet Tim is a 79 y.o. female with a H heart failure s/p heart catheterization, HTN, arthritis, and HLD that presents for evaluation of colon mass found on Colonoscopy 06/[address] Cohen. now s/p laparoscopic, hand assisted, right colectomy on 07/10/24. Juliet Tim is a 79 y.o. female with a H heart failure s/p heart catheterization, HTN, arthritis, and HLD that presents for evaluation of colon mass found on Colonoscopy 06/[address] Cohen. now s/p laparoscopic, hand assisted, right colectomy on 07/10/24. 07/10: lap, hand assisted, right colectomy ON: NAEO Interval: NAEO. Patient says she had a decent night. They are tolerating their diet, pain is under control. Denies nausea, vomiting, chest pain, shortness of breath. Encouraged IS and OOB. PM: did not walk with PM, did transfer to chair Edited by: Sylvie Mills MD at 07/11/2024 1224 Review of Systems: Relevant review of systems was obtained as able and is negative unless stated above in HPI. Objective Objective: Vital signs: Vitals: 07/11/24 1204 BP: 123/75 Pulse: 69 Resp: Temp: 36.7 ??C (98.1 ??F) SpO2: 93% Physical Exam: Physical Exam Constitutional: Appearance: Normal appearance. HENT: Head: Normocephalic and atraumatic. Mouth/Throat: Comments: Redness around mouth/lips (patient says she had red Jello) Cardiovascular: Rate and Rhythm: Normal rate and regular rhythm. Pulmonary: Effort: Pulmonary effort is normal. Comments: Nasal cannula Abdominal: General: There is distension (moderate). Palpations: Abdomen is soft. Tenderness: There is abdominal tenderness (appropriate). There is no guarding. Comments: Incisions c/d/intact, covered with dermabond and open to air. Has some bruising around incisions. Genitourinary: Comments: Holland in place Skin: General: Skin is warm. Neurological: General: No focal deficit present. Mental Status: She is alert. Mental status is at baseline. Intake/Output Summary (Last 24 hours) at 07/11/2024 1224 Last data filed at 07/10/2024 1900 Gross per 24 hour Intake 640 ml Output 425 ml Net 215 ml Lines/Drains/Tubes: Patient Lines/Drains/Airways Status Active Airway None Output by Drain (mL) 07/09/24 0700 - 07/09/24 1859 07/09/24 1900 - 07/10/24 0659 07/10/24 0700 - 07/10/24 1859 07/10/24 1900 - 07/11/24 0659 07/11/24 0700 - 07/11/24 1224 Requested LDAs do not have output data documented. Labs in last 18 hours: CBC WBC 15.48 (H) Hb 10.5 (L) Plt 243 Hct 34.7 ANC ?? INR ??, PTT ??, Anti-Xa ?? MCV 91 BMP Na 138 Cl 109 (H) BUN 23 Glu 733 (HH) K 4.5 Co2 16 (L) Cr 0.83 Ca 7.6 (L) iCa ?? Mg 1.8 (L), Phos 2.2 (L) Lactate ?? LFT AST ?? AlkPhos ?? T Prot ?? ALK ?? Bili ?? Alb ?? D.Bili ?? Lab Trends: H/H Results from last 7 days Lab Units 07/11/24 0614 07/10/24 1259 HEMOGLOBIN g/dL 10.5* 12.4 HEMATOCRIT % 34.7 39.3 INR Cr Results from last 7 days Lab Units 07/11/24 0614 CREATININE mg/dL 0.83 Lactate No lab exists for component: LACTTEVEN Radiographic Interpretation: No relevant imaging to review. Medications reviewed. Vital signs reviewed. Labs reviewed. Assessment/Plan Assessment and Plan: Medical Problems Problem List * (Principal) Malignant neoplasm of colon 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 (BMI) of 40.0 or higher (CMS/HCC) Coronary artery disease involving [place] coronary artery of [place] heart without angina pectoris Dyspnea on exertion Malignant neoplasm of colon, unspecified part of colon (CMS/HCC) Present on Admission: Malignant neoplasm of colon, unspecified part of colon (CMS/HCC) Plan Today: Juliet Tim is a 79 y.o. female with a PMH heart failure s/p heart catheterization, HTN, arthritis, and HLD that presents for evaluation of colon mass found on Colonoscopy 06/[address] Cohen. now s/p laparoscopic, hand assisted, right colectomy on 07/10/24. Juliet Tim is a 79 y.o. female with a PMH heart failure s/p heart catheterization, HTN, arthritis, and HLD that presents for evaluation of colon mass found on Colonoscopy 06/[address] Cohen. now s/p laparoscopic, hand assisted, right colectomy on 07/10/24. 07/10: lap, hand assisted, right colectomy ON: NAEO Interval: NAEO. Patient says she had a decent night. They are tolerating their diet, pain is under control. Denies nausea, vomiting, chest pain, shortness of breath. Encouraged IS and OOB. PM: did not walk with PM, did transfer to chair Edited by: Sylvie Mills MD at 07/11/2024 1224 - FLD - IVF dced - Keep holland - MMPC - subQ heparin - cardiac: statin, beta susanne restarted at 1/2 dose Edited by: Sylvie Mills MD at 07/11/2024 1218 - Discharge teaching and planning Dispo: Continue Current Level of Care Sylvie Mills MD PGY-1, Department of Anesthesiology Cosigned by Mata Smalls MD at 07/12/2024 12:47 PM EDT * Progress Notes - Lia Atkins MD - 07/11/2024 11:16 AM EDT Acute Pain Service Pain management goal: 2/10 Pain scale (0-10): 1/10 Side Effects Nausea/Vomiting: no Pruritus: no Confusion: no Sedation: no Numbness/Tingling: no Catheter inspected per protocol: yes Outcomes Able to take oral medications: taking ice chips. Has ambulated: up in chair. Assessment & Plan in the Next 24 hours Assessment: doing well Plan: continue CLARK DRIVER at current rate Plan explained/all questions answered/plan in agreement with: Patient Patient seen and examined today on rounds with AP Nurse. Epidural analgesics infusing for the management of postop pain. Analgesic medication rate and use reviewed. Patient doing well and quite comfortable. Patient reports the epidural CLARK DRIVER doses are effective. No significant adverse effects noted. My plan is to continue the epidural infusion basal and CLARK DRIVER settings. Will follow.. Reason for Block: post-op pain management * Progress Notes - Jaci Rivero - 07/11/2024 10:22 AM EDT Physical Therapy Evaluation Patient Name: Juliet Tim Today's Date: 07/11/2024 PT Discharge Recommendations: Subacute rehab Equipment Recommended: Defer to facility History Juliet Tim is 79 y.o. female admitted 07/10/2024 for work-up of Malignant neoplasm of colon. Hospital Course 1. 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 Past Surgical History Patient has a past surgical history that includes Hysterectomy; Knee surgery; Cardiac pacemaker placement; Mouth surgery; Shoulder surgery; Tubal ligation; Coronary angioplasty with stent; Cardiac catheterization (02/2024); and Colonoscopy. Precautions Medical Precautions: Fall precautions, Post-Surgical precautions Post-Surgical Precautions: Abdominal Subjective Pt agreeable to working with PT. RN approves of PT visit timing. Pt endorses feeling ready to try getting out of bed with help from therapist. Participants in Care Family/Caregiver Present: No Upper Cutter Out: Not Applicable Presentation Oxygen Therapy: Supplemental oxygen O2 Delivery Method: Nasal cannula O2 Flow Rate (L/min): 2 L/min Lines and Tubes: Telemetry, Intravenous access (abdominal binder) Pre-Session: Supine, Head of bed elevated, Bed alarm, Lines intact Pre-Session Comments: RN agreeable to initial evaluation. Post-Session: Sitting in chair, Chair alarm, Lines intact, Call light in reach, RN notified Post-Session Comments: Patient positioned for comfort/pressure relief with pillow supports and all needs in reach. Orthoses: (Abdominal Binder) Home Living/Set-Up Lives With: Spouse (Grandson - 9 y/o) Home Type: Mobile home Home Adaptive Equipment: Rollator, Wheelchair-manual (Tub Transfer Bench, Lift Chair) Home Layout: One level (Ramped entry) Bathroom: Tub/Shower: Tub/Shower combo, Tub transfer bench Bathroom: Toilet: Standard Bathroom: Accessibility: Accessible via walker (Rollator) Prior Level of Function Receives Help From: No assist required prior to admission Level of Mobility: Ambulatory- household only (motorized carts at store/wheelchair for community distances) Mobility [place]: Independent gait with device (Rollator) History of Falls: No ADL Performance: Needs assistance Bathing: Independent Upper Body Dressing: Independent Lower Body Dressing: Independent Grooming: Independent Toileting: Independent Eating: Independent Home Management Skills: Needs assist ( company and assist with cooking and cleaning) Patient/Family Goals get stronger, decrease pain, return home Objective Pain Pt reports moderate abdominal pain during movement. RN is aware. Delirium Screening Mason Agitation Sedation Scale (RASS): Alert and calm Confusion Assessment Method-ICU (CAM-ICU/PCAM-ICU) Feature 3: Altered Level of Consciousness: Negative Cognition Overall Cognitive Status: Within Functional Limits (however demonstrated decreased safety awareness) Arousal/Alertness: Appropriate responses to stimuli Mood/Behavior: Alert Orientation Level: Oriented X4 Single Step Commands: Consistently, 100% of the time Multi-Step Commands: Consistently, 100% of the time Method of Communication: Verbal Safety Judgment: Decreased awareness of need for assistance Awareness of Errors: Assistance required to identify errors made, Assistance required to correct errors made Deficit Awareness: Fully aware of deficits Attention Span: Appears intact, Attends with cues to redirect Problem Solving: Assistance required to identify errors made, Assistance required to implement solutions Perseveration: Not present Right Upper Extremity Examination RUE Assessment: Within Functional Limits Manual Muscle Testing - RUE: (Grossly 3/5; no formal resistance applied secondary to abdominal percautions/pain present) Light Touch: Right Upper Extremity: Intact Left Upper Extremity Examination LUE Assessment: Within Functional Limits Manual Muscle Testing - LUE: (Grossly 3/5; no formal resistance applied secondary to abdominal percautions/pain present) Light Touch: Left Upper Extremity: Intact Right Lower Extremity Examination RLE Assessment: Exceptions to WFL (Patient maintains right LE in external rotation at baseline at all times; Knee NT 2/2 fusion) Manual Muscle Testing - RLE: Within functional limits except Hip flexion: 2+ Knee Flexion: (NT 2/2 fusion) Knee Extension: (NT 2/2 fusion) Ankle Plantarflexion: 2- Ankle Dorsiflexion: 2- Light Touch: Right Lower Extremity: Intact Left Lower Extremity Examination LLE Assessment: Within Functional Limits Manual Muscle Testing: (Grossly 4/5) Light Touch: Left Lower Extremity: Intact Perception/Coordination Perception Initiation: Appears intact Motor Planning: Appears intact Coordination Movements are Fluid and Coordinated: Yes Bed Mobility Bed Mobility Exam: Rolling/Turning Level of [place]: Moderate assist (50% patient effort) Physical/Nonphysical Assist: Set-up required, Moderate cues, Verbal Cues, Additional assist utilized for safety Bed Mobility Exam: Scooting/Bridging Level of [place]: Moderate assist (50% patient's effort) Physical/Nonphysical Assist: Set-up required, Additional assist utilized for safety, Verbal Cues, Moderate cues Bed Mobility Exam: Supine to Sit Level of [place]: Moderate assist (50% patient's effort) Physical/Nonphysical Assist: Set-up required, Moderate cues, Verbal Cues, Additional assist utilized for safety Transfers Transfer Exam: Sit to stand Level of [place]: Moderate assist (50% patient's effort) Physical/Nonphysical Assist: Set-up required, Moderate cues, Verbal Cues, Additional assist utilized for safety Assistive Device: Walker, rolling Transfer Exam: Stand to Sit Level of [place]: Moderate assist (50% patient's effort) Physical/Nonphysical Assist: Set-up required, Verbal Cues, Moderate cues, Additional assist utilized for safety Assistive Device: Walker, rolling Transfer Exam: Bed to Chair/Chair to Bed Level of [place]: Moderate assist (50% patient's effort) Physical/Nonphysical Assist: Verbal Cues, Moderate cues, Set-up required, Additional assist utilized for safety Type of Transfer: Sidesteps Assistive Device: Walker, rolling Ambulation Ambulation Comments: Pt unable to progess to ambulation secondary to pain and fatigue. Balance Postural Appearance Posture: Forward head, Rounded shoulders Head Control: WFL Trunk Control: WFL Static Sitting Balance Static Sitting-Balance Support: Right upper extremity support, Left upper extremity support, Feet supported Static Sitting-Level of Assistance: Minimum assistance Dynamic Sitting Balance Dynamic Sitting-Balance Support: Right upper extremity support, Left upper extremity support, Feet supported Dynamic Sitting-Balance: Lateral weight shifts, Anterior/Posterior weight shifts Level of Assistance: Minimum assistance Static Standing Balance Static Standing-Balance Support: Right upper extremity support, Left upper extremity support Static Standing-Level of Assistance: Minimum assistance Dynamic Standing Balance Dynamic Standing-Balance Support: Right upper extremity support, Left upper extremity support Dynamic Standing-Balance: Lateral weight shifts, Anterior/Posterior weight shifts Dynamic Standing Level of Assistance: Moderate assistance Therapeutic Activity (27 minutes) PT assisted and instructed pt in functional mobility activities to improve their ability to move around safely in home environment and reduce the effects of post illness/surgery sedentary status. PT fitted pt with a rolling walker. Pt participated in bed mobility, supine-sit and [id number] transfers. She was able to progress to sidestepping transfer from bed to chair using rolling walker. Pt reported significant fatigue with these activities and was not able to participate in further ambulation. Verbal and tactile cues given to pt by PT for: postural alignment, weight shifting, improved biomechanics, safety, movement sequence, hand/foot placement, assistive device management, and appropriate activity pacing. Pt was positioned in recliner chair with multiple pillow support. Standardized Assessments [facility] 6-Clicks Mobility Assessment Difficulty patient has turning over in bed (including adjusting bedclothes, sheets, and blankets)?:A little Difficulty patient has sitting down on and standing up from a chair with arms (wheelchair, bedside commode, etc.)?: A little Difficulty patient has moving from lying on back to sitting on the side of the bed?: A lot How much help does the patient need moving to and from a bed to a chair (including a wheelchair)?: A lot How much help does the patient need to walk in hospital room?: Unable How much help does the patient need climbing 3-5 steps with a railing?: Unable [facility] 6-Clicks Mobility Assessment Total : 12 Assessment Pt is recovering from Right colectomy (07/10/24) to address her Malignant neoplasm of the colon. On POD#1 she was able to participate in transfers out of bed to chair but unable to ambulate due to pain and fatigue. She seems motivated to rehabilitate and return home. Pt's current level of function (requiring 2 person assist for transfers and unable to ambulate) is lower than the reported prior level of function (modified independence with transfers and walking with a walker) and for this reason continued PT is indicated. Inpatient PT will continue to follow. She has good rehabilitation potential. Barriers for patient's immediate return to home include: high fall risk during ADL-associated transfers and mobility, inability to perform daily activities independently following surgery and doesnot have access to 24-hour/daily caregiver, unable to drive or complete vehicle transfers for medical follow up appointments, unable to exit home safely or timely in the event of emergency evacuation, unable to walk or negotiate stairs, requires frequent care from MD and RNs. [facility] Impairments: Decreased endurance, ventilation, and/or gas exchange, Impaired functional mobility/transfers, Decreased strength, Impaired gait dynamics/performance, Impaired balance, Impaired locomotion, Impaired postural/trunk control, Pain Activity Limitations: Inability to ambulate community distances, Inability to complete ADLs independently, Inability to ambulate household distances, Inability to ambulate independently, Inability totransfer independently Participation Restrictions: Self-care Activity Tolerance: Tolerates 10 - 20 min activity with multiple rests Evaluation/Treatment Tolerance: Patient limited by fatigue, Patient limited by pain, Treatment limited secondary to medical complications (Comment) Diagnosis: Aftercare and associated debility: Malignant neoplasm colon s/p R colectomy (07/10/24) Rehab Potential: Good, to achieve stated therapy goals Barriers to Discharge: Comorbidities Eval Complexity History Profile: 1 - 2 personal factors and/or comorbidities Clinical Presentation: Evolving clinical presentation with changing characteristics Clinical Decision Making: Moderate complexity PT Recommendations Discharge Destination: Subacute rehab Discharge Equipment: Defer to facility Plan Planned PT Interventions Balance training, Bed mobility training, Gait training, Motor coordination training, Transfer training, Postural re-education, Neuromuscular re-education, Strengthening, Functional Mobility, Caregiver training PT Frequency 2 - 5 times per week PT Duration 2 weeks Goals PT GOAL DETAILS Time Frame PT Goal 1: Pt will demonstrate bed mobility with standby assist. 2 weeks PT Goal 2: Pt will demonstrate [id number] transfers with min assist 2 weeks PT Goal 3: Pt will perform [id number] transfers with min assist. 2 weeks PT Goal 4: Pt will ambulate 30 ft or more using rolling walker with min assist. 2 weeks PT Goal 5: Pt/caregiver will verbalize and demonstrate understanding of post-op precautions and a basic HEP. 2 weeks Written by Jaci Rivero on 07/11/24 at 1:01 PM. * Progress Notes - Milla Rosado - 07/11/2024 10:21 AM EDT Occupational Therapy Evaluation Patient Name: Juliet Tim Today's Date: 07/11/2024 OT Discharge Recommendations: Subacute rehab Equipment Recommended: Defer to facility, Rolling walker History Juliet Tim is 79 y.o. female admitted 07/10/2024 for work-up of Malignant neoplasm of colon. Hospital Course 1. Malignant neoplasm of colon, unspecified part of colon (CMS/HCC) Procedures 07/10/2024 Procedure(s): laparoscopic right colectomy Past Medical History Patient has a past medical history of Arthritis, High cholesterol, and Hypertension. Past Surgical History Patient has a past surgical history that includes Hysterectomy; Knee surgery; Cardiac pacemaker placement; Mouth surgery; Shoulder surgery; Tubal ligation; Coronary angioplasty with stent; Cardiac catheterization (02/2024); and Colonoscopy. Precautions Medical Precautions: Fall precautions, Post-Surgical precautions Post-Surgical Precautions: Abdominal Subjective Patient agreeable to OT initial evaluation/session. Participants in Care Family/Caregiver Present: No Upper Cutter Out: Not Applicable Presentation Oxygen Therapy: Supplemental oxygen O2 Delivery Method: Nasal cannula O2 Flow Rate (L/min): 2 L/min Lines and Tubes: Telemetry, Intravenous access (abdominal binder) Pre-Session: Supine, Head of bed elevated, Bed alarm, Lines intact Pre-Session Comments: RN agreeable to initial evaluation. Post-Session: Sitting in chair, Chair alarm, Lines intact, Call light in reach, RN notified Post-Session Comments: Patient positioned for comfort/pressure relief with pillow supports and all needs in reach. Orthoses: (Abdominal Binder) Home Living/Set-Up Lives With: Spouse (Grandson - 9 y/o) Home Type: Mobile home Home Adaptive Equipment: Rollator, Wheelchair-manual (Tub Transfer Bench, Lift Chair) Home Layout: One level (Ramped entry) Bathroom: Tub/Shower: Tub/Shower combo, Tub transfer bench Bathroom: Toilet: Standard Bathroom: Accessibility: Accessible via walker (Rollator) Prior Level of Function Receives Help From: No assist required prior to admission Level of Mobility: Ambulatory- household only (motorized carts at store/wheelchair for community distances) Mobility [place]: Independent gait with device (Rollator) History of Falls: No ADL Performance: Needs assistance Bathing: Independent Upper Body Dressing: Independent Lower Body Dressing: Independent Grooming: Independent Toileting: Independent Eating: Independent Home Management Skills: Needs assist ( company and assist with cooking and cleaning) Patient/Family Goals Patient would like to return home. Objective Pain Patient reported abdominal pain, however no formal pain rating provided. Patient with epidural catheter/pain pump present during session and in use. RN aware. Patient positioned for comfort/pressure relief with pillow supports and all needs in reach at end of session. Delirium Screening [place] Agitation Sedation Scale (RASS): Alert and calm Confusion Assessment Method-ICU (CAM-ICU/PCAM-ICU) Feature 3: Altered Level of Consciousness: Negative Cognition Overall Cognitive Status: Within Functional Limits (however demonstrated decreased safety awareness) Arousal/Alertness: Appropriate responses to stimuli Mood/Behavior: Alert Orientation Level: Oriented X4 Single Step Commands: Consistently, 100% of the time Multi-Step Commands: Consistently, 100% of the time Method of Communication: Verbal Safety Judgment: Decreased awareness of need for assistance Awareness of Errors: Assistance required to identify errors made, Assistance required to correct errors made Deficit Awareness: Fully aware of deficits Attention Span: Appears intact, Attends with cues to redirect Problem Solving: Assistance required to identify errors made, Assistance required to implement solutions Perseveration: Not present Vision - Assessment Baseline Vision: Glasses distance, Glasses reading Patient Visual Report: Patient reported no concerns regarding vision at this time. Right Upper Extremity Examination RUE Assessment: Within Functional Limits Manual Muscle Testing - RUE: (Grossly 3/5; no formal resistance applied secondary to abdominal percautions/pain present) Light Touch: Right Upper Extremity: Intact Left Upper Extremity Examination LUE Assessment: Within Functional Limits Manual Muscle Testing - LUE: (Grossly 3/5; no formal resistance applied secondary to abdominal percautions/pain present) Light Touch: Left Upper Extremity: Intact Right Lower Extremity Examination RLE Assessment: Exceptions to WFL (Patient maintains right LE in external rotation at baseline at all times; Knee NT 2/2 fusion) Manual Muscle Testing - RLE: Within functional limits except Hip flexion: 2+ Knee Flexion: (NT 2/2 fusion) Knee Extension: (NT 2/2 fusion) Ankle Plantarflexion: 2- Ankle Dorsiflexion: 2- Light Touch: Right Lower Extremity: Intact Left Lower Extremity Examination LLE Assessment: Within Functional Limits Manual Muscle Testing - LLE: (Grossly 4/5) Light Touch: Left Lower Extremity: Intact Perception/Coordination Perception Initiation: Appears intact Motor Planning: Appears intact Coordination Movements are Fluid and Coordinated: Yes Fine Motor Coordination Examination Left Hand, Manipulation of Objects: Normal performance Right Hand, Manipulation of Objects: Normal performance Bed Mobility Bed Mobility Exam: Rolling/Turning Level of [place]: Moderate assist (50% patient effort) (to the right) Physical/Nonphysical Assist: Set-up required, Verbal Cues, Nonverbal cues (demo/gestures), Moderatecues, Additional assist utilized for safety Assistive Device: Bed rails, Other Bed Mobility Exam: Scooting/Bridging Level of [place]: Moderate assist (50% patient's effort) (anteriorly to EOB) Physical/Nonphysical Assist: Set-up required, Verbal Cues, Nonverbal cues (demo/gestures), Moderatecues, Additional assist utilized for safety Assistive Device: Other (draw sheet) Bed Mobility Exam: Supine to Sit Level of [place]: Moderate assist (50% patient's effort) (to the right) Physical/Nonphysical Assist: Set-up required, Verbal Cues, Nonverbal cues (demo/gestures), Moderatecues, HOB elevated, Additional assist utilized for safety (increased time) Assistive Device: Bed rails, Other (draw sheet) Transfers Transfer Exam: Sit to stand Level of [place]: Moderate assist (50% patient's effort) Physical/Nonphysical Assist: Set-up required, Verbal Cues, Nonverbal cues (demo/gestures), Moderatecues, Additional assist utilized for safety Assistive Device: Walker, rolling Transfer Exam: Stand to Sit Level of [place]: Moderate assist (50% patient's effort) Physical/Nonphysical Assist: Set-up required, Verbal Cues, Nonverbal cues (demo/gestures), Moderatecues, Additional assist utilized for safety Assistive Device: Walker, rolling Transfer Exam: Bed to Chair/Chair to Bed Level of [place]: Moderate assist (50% patient's effort) Physical/Nonphysical Assist: Set-up required, Verbal Cues, Nonverbal cues (demo/gestures), Moderatecues, Additional assist utilized for safety Type of Transfer: Sidesteps (to the left) Assistive Device: Walker, rolling Functional Mobility Ambulation Comments: Patient unable to progress with additional mobility for navigation activities d/t impaired activity tolerance and increased fatigue. Patient currently NOT able to navigate a household distance to safely achieve access to the bathroom or enter/exit home. Balance Postural Appearance Posture: Forward head, Rounded shoulders Static Sitting Balance Static Sitting-Balance Support: Right upper extremity support, Left upper extremity support, Feet supported Static Sitting-Level of Assistance: Minimum assistance Dynamic Sitting Balance Dynamic Sitting-Balance Support: No upper extremity support, Feet supported Level of Assistance: Minimum assistance Static Standing Balance Static Standing-Balance Support: Right upper extremity support, Left upper extremity support (on RW) Static Standing-Level of Assistance: Minimum assistance Dynamic Standing Balance Dynamic Standing-Balance Support: Right upper extremity support, Left upper extremity support (on RW) Dynamic Standing Level of Assistance: Moderate assistance Self-Care Interventions Self Care/Home Management (ADLs) Time Entry: 27 Self_Care Interventions: In addition to OT initial evaluation (15 minutes), OT facilitated patient engagement in sequential task training emphasizing functional transitions required for increased performance in higher level BADLs/IADLs. Refer to the above sections for patient performance and levelsof assistance required for aspects of mobility completed on this date. Of note, increased time required for: appropriate room set-up via environmental modifications to optimize patient safety and accessibility to all areas of treatment spaces, skilled management of medical lines/tubes, vital monitoring, task modification/grading activity to provide functional challenge and promote success , provision of pacing/rest breaks, BADL retraining, linen/chux change, verbal and tactile cues to facilitate sequencing and proper body mechanics during functional tasks, patienteducation, and staff education (RN/Tech/TEAM in regards to patient safety/vitals/mobility during session). Patient Education: To optimize patient safety while inpatient and at time of discharge, OT providedpatient and caregiver/family education regarding: role of OT within POC, progression of therapy, discharge recommendations, precautions, BADL retraining, work simplification, energy conservation, adaptive techniques, adaptive equipment, and fall prevention. Of note, the patient verbalized understanding. Patient, however, would continue to benefit from additional education to promote increased carryover of provided information. Refer to below sections for additional self-care interventions completed during session. Feeding Feeding Level of Assistance: Setup, Independent Feeding Where Assessed: Chair Level Feeding Interventions: OT provided set-up assist for tray table in reach. Patient IND with bringingice-chips to mouth in supported sitting position. Grooming Grooming Level of Assistance: Setup, SBA Grooming Where Assessed: Chair level Grooming Interventions: Patient unable to tolerate grooming in standing position d/t impaired activity tolerance, strength, and balance. OT provided task modification for task to be completed in sitting position and set-up assist for grooming items in reach. Patient completed facial hygiene in supported sitting position with SBA. Bathing UE Bathing Level of Assistance: Moderate assistance LE Bathing Level of Assistance: Maximum assistance Bathing Interventions: Anticipated level of assistance/performance per clinical judgement. UE Dressing UE Dressing Level of Assistance: Minimum assistance UE Dressing Where Assessed: Edge of bed UE Dressing Interventions: OT provided MIN assist to adjust gown in supported sitting at EOB. Lower Extremity Dressing Pants Level of Assistance: Maximum assistance (Anticipated level of assistance/performance per clinical judgement.) Sock Level of Assistance: Dependent LE Dressing Where Assessed: Edge of bed LE Dressing Interventions: OT provided DEP assist to adjust bilateral socks in supported sitting position. Toileting Toileting Level of Assistance: Maximum assistance to Dependent (Anticipated level of assistance/performance per clinical judgement.) Where Assessed: (Simulated.) Toileting Interventions: OT engaged patient in partial toileting routine in which bedside commode or standard toilet transfers were simulated during aspects of mobility. Patient required MOD assist to complete functional sit to stand and MOD assist to complete bed < > chair transfer with sidesteps with RW. Of note, increased time required for presented task secondary to slow pace of task completion and appropriate set-up lines/equipment to optimize patient safety and success. OT anticipates that patient will require increased levels of assistance for higher level toileting intervention including: ambulation < > bathroom, transfer < > bedside commode or standard toilet, manage clothing, and complete jose-care hygiene. Patient currently NOT able to navigate a household distance to safely achieve access to the bathroom or enter/exit home. Standardized Assessments [facility] 6-Click Daily Activities Help from Other: Don/Doff Regular Lower Body Clothings: Total Help From Other: Bathing: A lot Help From Other: Toileting: A lot Help From Other: Don/Doff Upper Body Clothings: Little Help From Other: Grooming: Little Help From Other: Eating Meals: [facility] 6 Click - Daily Activities Score: 14 Assessment Patient tolerated today's initial evaluation/session fairly well with rest breaks as needed and stable vitals. On this date, patient required grossly MOD assist x2 for all aspects of mobility with increased time. Varied levels of assistance required for presented self-cares; refer to self-care section for additional details. Patient presented with impaired occupational performances within completing BADL/IADL safely, functional transfers, functional mobility, balance, activity tolerance, strength, gross motor coordination, decreased safety awareness, and self-limiting factors including pain and fatigue impacting their current level of performance and ability to engage in occupations with full independence. OT anticipates that patient will require increased levels of assistance for higher level BADLs/IADLs including: total body dressing, toileting, bathing/showering, meal preparation, household maintenance, community outings (such as obtaining groceries or attending appointments). Given patient's current mobility and BADL/IADL impairments, the patient would be unsafe to return home if they were to need to have quick access to exit routes within their home, to the bathroom if experiencing bowel/bladder urgency, and with other home safety scenarios. Patient is currently most appropriate for subacute rehabilitation and would continue to benefit from skilled OT services to promote increased independence within desired occupations, return to prior level of function, decrease caregiver stress, reduce risk of falls/potential readmission, and to promote a safe discharge when medically appropriate. OT Findings: Impaired ADL performance, Impaired IADL performance, Decreased upper extremity strength, Impaired judgment during ADL, Decreased endurance/ventilation/gas exchange, Impaired functional mobility, Decreased gross motor control/coordination, Impaired postural/trunk control, Impaired balance Evaluation/Treatment Tolerance: Patient limited by fatigue, Patient limited by pain Rehab Potential: Good, to achieve stated therapy goals Barriers to Discharge: Comorbidities Demonstrates Need for Referral to Another Service: Social work Eval Complexity Occupational Profile: Expanded review of medical/therapy records and additional review of physical,cognitive, or psychosocial history Performance Deficits: Activities of daily living (ADLs), Instrumental activities of daily living (IADLs), Leisure, Body functions, Body structures, Motor skills, Habits, Routines, Roles, Personal, Physical Clinical Decision Making: Moderate Overall Eval complexity: Moderate OT Recommendations Discharge Destination: Subacute rehab Discharge Equipment: Defer to facility, Rolling walker Plan Continue with established OT plan of care 2-5/wk to progress towards OT POC goals. Planned OT Interventions ADL retraining, IADL retraining, Balance training, Bed mobility Training, Motor coordination training, Neuromuscular re-education, Strengthening, Transfer training, Functional mobility, Caregiver education OT Frequency 2 - 5 times per week OT Duration 2 weeks Goals OT GOAL DETAILS Time Frame OT Goal 1: Patient/Family/Caregiver will be independent in bilateral upper extremity home exercise program to promote increased strength required for engagement in higher level self-cares/mobility. 2weeks OT Goal 2: Patient will complete 2-step grooming routine in standing position with contact-guard assistance and AE as needed. 2 weeks OT Goal 3: Patient will complete total body dressing with minimum assistance and AE as needed. 2 weeks OT Goal 4: Patient will complete toileting routine (navigation < > bathroom, transfer < > standard toilet, manage clothing, and complete jose-care hygiene) with minimum assistance and AE as needed. 2 weeks Written by Milla Rosado on 07/11/24 at 1:25 PM. * Consults - Pati Pate RN - 07/11/2024 8:18 AM EDT Acute Pain Service Follow-Up Evaluation Juliet Tim is a 79 y.o. female Follow-Up: Follow-up reason: APS rounds Location: abdomen Pain Rating (0-10): 6 Comfort/ Acceptable Pain Level: 4 Acute Pain Service Comments: Pain Service comments: Will continue Patient Controlled Analgesia infusion until primary service decides it is appropriate to discontinue. Patient received 22 doses in 14 hours with Patient Controlled Analgesia infusion for 55.15 mls of hydromorphone + bupivacaine. Epidural Site: not examined Follow-Up: Follow-Up: Acute Pain Service will continue to follow and adjust as needed. Visit Type: Routine Current Analgesic Treatments: Inpatient Analgesics Active Medications Medication Name Dose Route Frequency acetaminophen (Ofirmev) injection 1,000 mg 1,000 mg Intravenous q6h Rate: 400 mL/hr HYDROmorphone (PF) 10 mcg/mL + bupivacaine (PF) 1.25 mg/mL in 100 mL (PF) CLARK DRIVER no dose Epidural Continuous hydromorphone 10 mcg/mL + bupivacaine 1.25 mg/mL clinician bolus dose 1-5 mL Epidural PRN for severe pain methocarbamol (Robaxin) tablet 500 mg 500 mg Oral q6h ANTOINE naloxone (Narcan) injection 0.08 mg 0.08 mg Intravenous q1 min PRN for respiratory depression, For respiratory rate < 10 pregabalin (Lyrica) capsule 75 mg 75 mg Oral BID Future Medications Medication Name Dose Route Frequency acetaminophen (Tylenol) tablet 1,000 mg 1,000 mg Oral q6h Epidural Dilaudid 10 mcg/ml & Bupivacaine 1.25 mg/ml; 03/25/09; T8-T9 12 cm @ skin Laparoscopic colectomy with possible ileostomy Blood pressure 113/63, pulse 71, temperature 36.9 ??C (98.5 ??F), temperature source Oral, resp. rate 18, height 1.6 m (5' 2.99 ), weight 105 kg (232 lb), SpO2 93%. Please Contact Acute Pain Service with any additional questions or concerns via [employer] orpage [phone]. * Care Plan - Basilia Coyne RN - 07/11/2024 1:45 AM EDT Problem: Adult Inpatient Plan of Care Goal: Plan of Care Review Outcome: Ongoing, Progressing Goal: Patient-Specific Goal (Individualized) Outcome: Ongoing, Progressing Flowsheets (Taken 07/10/20241809 by Regla Sanchez RN) Patient/Family-Specific Goals (Include Timeframe): pt will remain free of falls while in PACU. Individualized Care Needs: none Anxieties, Fears or Concerns: none Goal: Absence of Hospital-Acquired Illness or Injury Outcome: Ongoing, Progressing Goal: Optimal Comfort and Wellbeing Outcome: Ongoing, Progressing Goal: Readiness for Transition of Care Outcome: Ongoing, Progressing * Significant Event - Grace Shelby MBBS - 07/10/2024 11:08 PM EDT Images from the original note were not included. [facility] [place] [facility] Department of Surgery Division of Colorectal Surgery Post Operative Check: Subjective: Procedure: Laparoscopic, hand assisted, right colectomy Patient currently reports minimal pain,denies nausea, vomiting. Feels bloated but much better than when she came in. Pain Control: Adequate Objective: Vitals: Visit Vitals BP (!) 147/88 Pulse 68 Temp 36.3 ??C (97.4 ??F) (Oral) Resp 23 IN/Out: Intake/Output Summary (Last 24 hours) at 07/10/2024 2308 Last data filed at 07/10/2024 1900 Gross per 24 hour Intake 640 ml Output 425 ml Net 215 ml Physical Exam: Physical Exam Constitutional: Appearance: She is obese. HENT: Mouth/Throat: Mouth: Mucous membranes are moist. Cardiovascular: Rate and Rhythm: Normal rate and regular rhythm. Pulmonary: Effort: Pulmonary effort is normal. Abdominal: General: There is distension. Tenderness: There is abdominal tenderness. Comments: Incision- c/d/I. Abdominal binder in place. Minimal distension. Skin: General: Skin is warm. Capillary Refill: Capillary refill takes less than 2 seconds. Neurological: General: No focal deficit present. Mental Status: She is alert and oriented to person, place, and time. Psychiatric: Mood and Affect: Mood normal. Behavior: Behavior normal. Incisions: covered LTD: PIV-2, Epidural, Labs: WBC 8.10 Hgb 12.4 PLT 232 HCT 39.3 INR ?? PTT ?? antiXa ?? Na ?? Cl ?? BUN ?? Gluc ?? K ?? CO2 ?? Creat ?? Ca ?? iCa ?? Mg ?? Phos ?? pH ?? pCO2 ?? pO2 ?? SPO2 ?? FIO2 ?? HCO3 ?? BE ?? Lactate ?? Assessment and Plan: is a 79 year old female s/p Laparoscopic, hand assisted, right colectomy for malignant neoplasm of the colon. Diet Status: FLD Anticoagulation/DVT ppx: SQH 7500 U Pain management: PCEA Level of care: Continue Current Level of Care I have answered and addressed all issues and concerns from the patient and nursing staff. I have notified senior resident/attending financial economist with any issues or concerns. * Consults - Pati Lea RN - 07/10/2024 9:30 PM EDT Acute Pain Service Follow-Up Evaluation Juliet Tim is a 79 y.o. female Follow-Up: Follow-up reason: APS rounds Pain Rating (0-10): asleep Acute Pain Service Comments: Pain Service comments: Will continue Patient Controlled Analgesia infusion until primary service decides it is appropriate to discontinue. Patient received 11 doses in 3 hours with Patient ControlledAnalgesia infusion for 21.25 ml current epidural solution. Epidural Site: not examined Follow-Up: Follow-Up: Acute Pain Service will continue to follow and adjust as needed. Visit Type: Routine Current Analgesic Treatments: Inpatient Analgesics Active Medications Medication Name Dose Route Frequency acetaminophen (Ofirmev) injection 1,000 mg 1,000 mg Intravenous q6h Rate: 400 mL/hr HYDROmorphone (PF) 10 mcg/mL + bupivacaine (PF) 1.25 mg/mL in 100 mL (PF) CLARK DRIVER no dose Epidural Continuous hydromorphone 10 mcg/mL + bupivacaine 1.25 mg/mL clinician bolus dose 1-5 mL Epidural PRN for severe pain methocarbamol (Robaxin) tablet 500 mg 500 mg Oral q6h ANTOINE naloxone (Narcan) injection 0.08 mg 0.08 mg Intravenous q1 min PRN for respiratory depression, For respiratory rate < 10 pregabalin (Lyrica) capsule 75 mg 75 mg Oral BID Future Medications Medication Name Dose Route Frequency acetaminophen (Tylenol) tablet 1,000 mg 1,000 mg Oral q6h Epidural Dilaudid 10 mcg/ml & Bupivacaine 1.25 mg/ml; 03/25/09; T8-T9 12 cm @ skin Laparoscopic colectomy with possible ileostomy Blood pressure (!) 147/88, pulse 68, temperature 36.3 ??C (97.4 ??F), temperature source Oral, resp. rate 23, SpO2 94%. Please Contact Acute Pain Service with any additional questions or concerns via [employer] orpage [phone]. * Anesthesia PACU Signout - Roni Duval MD - 07/10/2024 7:04 PM EDT Patient: Juliet Tim Anesthesia Type: general Vitals Value Taken Time BP 145/80 07/10/24 19:00 Temp 36.5 07/10/24 19:04 Pulse 67 07/10/24 19:03 Resp 14 07/10/24 19:03 SpO2 94 % 07/10/24 19:03 Vitals shown include unfiled device data. Anesthesia PACU Signout Patient location during evaluation: PACU Patient participation: complete - patient participated Level of consciousness: baseline and awake Pain management: adequate (pain score 0-3) Airway patency: natural airway Hydration status: acceptable PONV: none Cardiovascular status: acceptable and hemodynamically stable Respiratory status: acceptable, spontaneous ventilation, unassisted and nonlabored ventilation Cosigned by Denver Garcia MD at 07/10/2024 7:09 PM EDT Associated attestation - Denver Garcia MD - 07/10/2024 7:09 PM EDT Agree with above * Consults - Mariajose Rodriguez RN - 07/10/2024 6:42 PM EDT Acute Pain Service Hookup Juliet Tim is a 79 y.o. female Visit Type: Complex Reason for Hookup: Came to see patient for epidural hookup. Blood pressure (!) 143/82, pulse 70, temperature 36.5 ??C (97.7 ??F), temperature source Oral, resp. rate 15, SpO2 92%. Medications Inpatient Analgesics Active Medications Medication Name Dose Route Frequency acetaminophen (Tylenol) tablet 1,000 mg 1,000 mg Oral Once PRN for pain score of >1 out of 10 HYDROmorphone (PF) 10 mcg/mL + bupivacaine (PF) 1.25 mg/mL in 100 mL (PF) CLARK DRIVER no dose Epidural Continuous hydromorphone 10 mcg/mL + bupivacaine 1.25 mg/mL clinician bolus dose 1-5 mL Epidural PRN for severe pain naloxone (Narcan) injection 0.08 mg 0.08 mg Intravenous q1 min PRN for respiratory depression, For respiratory rate < 10 naloxone (Narcan) injection 0.4 mg 0.4 mg Intravenous PRN for respiratory depression Epidural Dilaudid 10 mcg/ml & Bupivacaine 1.25 mg/ml; 03/25/09; T8-T9 12 cm @ skin Laparoscopic colectomy with possible ileostomy CLARK DRIVER Education: Patient/ family CLARK DRIVER education done: Yes Pre-hook-up Assessment: Pain Rating (0-10): 10 Comfort/ Acceptable Pain Level: 4 Location: abdomen Epidural insertion site: occlusive dressing intact Epidural motor function: Able to bend knees Hook-up Time: Hooked up at 18:30 with 5 ml bolus. Additional Comments: Negative Aspiration. * Significant Event - Carmen Aguilera MD - 07/10/2024 6:41 PM EDT Images from the original note were not included. Device Interrogation Overview Media Marketing Director: [place] Device mode: AAIR <--> DDR Lower rate: 60 bpm Upper Track: 130 bpm Battery: 7.9 years RA % pacin.1% Pacin.375 Volts @ 0.40 ms Sensin.4 mV Impedance: 418 Ohms RV % pacing: < 1% Pacin.00 Volts @ 0.40 ms Sensin.0 mV Impedance: 380 Ohms Episodes None Changes: No I personally performed and interpreted the results of this device interrogation. * Op Note - Mata Smalls MD - 07/10/2024 4:16 PM EDT [facility] Colon & Rectal Surgery Operative Report DATE OF PROCEDURE: 07/10/2024 PREOPERATIVE DIAGNOSIS: Colon cancer (CMS/HCC) Morbid obesity with BMI of 40.0-44.9, adult (CMS/HCC) POSTOPERATIVE DIAGNOSIS: Same. PROCEDURE(S) PERFORMED: Laparoscopic right colectomy (HALS) ATTENDING SURGEON: Mata Smalls MD RESIDENT SURGEON: MD Cony Agrawal MD ANESTHESIA Type: General ASA Class: III Case Length: 2 Hr 46 Min 23 Sec ESTIMATED BLOOD LOSS: Minimal COMPLICATIONS: None. SPECIMEN: ID Type Source Tests Collected by Time 1 : Right Colon Tissue Other (specify site) SURGICAL PATHOLOGY EXAM Mata Smalls MD 07/10/2024 1705 FINDINGS: bulky mesentery and colon due to body habitus BRIEF HISTORY: Juliet Tim is a 79 y.o. female with biopsy-proven adenocarcinoma. She presents today for surgical treatment. The risks, benefits, and alternatives to surgery were discussed in detail. The patient voiced understanding and agreed to proceed. Consent was obtained. OPERATIVE DESCRIPTION: The patient was taken to the operating room and placed in the supine position. General anesthesia was induced following placement of monitoring lines. The patient's abdomen was prepped and draped in the usual sterile fashion. A surgical pause was undertaken to confirm the patient's identity and the proposed procedure. Once this was done the procedure was started. A 6 cm midline incision was made above the umbilicus. The fascia was divided and then a hand port was placed into this defect. 5 mm ports were placed in the lower abdomen: 1 in the right lower quadrant, another 1 in the left lower quadrant, and then the last 1 in the low mid abdomen. The cecum and ileal mesentery were mobilized just above the pelvis and the lateral peritoneum of the cecum and ascending colon was divided. Despite the hand-assist approach (I.e. HALS), her bowel and mesentery werevery difficult to handle due to her body habitus. In addition to the HALS technique, we needed to use bariatric instruments. The ascending colon was then medialized and freed off of the underlying retroperitoneum. In this mobilization along the retroperitoneum, we identified the ureter and kidney which were protected and preserved during the dissection. We then entered the lesser sac at the levelof the mid transverse colon. We continued the dissection proximally which allowed us to completely t olayinka down the hepatic flexure. We then performed a high ligation of the ileocolic artery using a LigaSure device. The duodenum was isolated and well protected throughout the entire dissection. The remaining mesentery of the ascending colon, hepatic flexure, and the proximal transverse colon were ligated using the Ligasure. With this done we eviscerated the specimen. Of note, due to the bulkiness of her bowel and mesentery, we needed to extend our incision by 2cm. The specimen was amputated proximally at the level of the terminal ileum and distally at the level of mid-transverse colon using an Endo-NABILA stapler. An end-to-end, [id number] anastomosis was created using multiple firings of the Endo-NABILA stapler. The crotch of the anastomosis was reinforced witha 3-0 silk stitch. The common channel was closed in two layers using 3-0 PDS and then 3-0 silk. Next, the greater omentum was fashioned into a pedicalized flap. This flap was based off of the gastroepiploic artery and harvested from the transverse colon. Once it was created, we ensured it was viable and resected any segments that appeared to be poorly vascularized. The flap was then laid onto the anastomosis and its associated mesenteric defect. 3-0 silk stitches were used to tack the flap intoplace by suturing it to the mesenteric edges, peritoneum of the mesentery, in the anastomosis. The purpose of flap was to obliterate the organ space and mesenteric defect that was a result of the resection. The anastomosis was placed back into the peritoneal cavity and then the omentum was placed over theanastomosis. The fascia was then reapproximated using multiple interrupted 0 PDS stitches placed rajeev figure-eight fashion. The subcutaneous tissue was copiously irrigated. The laparoscopic ports in the lower abdomen were removed. All sites were also irrigated. Skin was then reapproximated using 3-0 Monocryl followed by Dermabond. The inferior-most portion of the extraction site was intentionallyleft open given the contaminated nature of the case and was packed with a piece of Telfa gauze. With this the procedure was completed. The patient tolerated the procedure well, was awoken from anesthetic, and then taken to the recovery room in satisfactory condition. Physician Attestation: I was present and participated for all dacosta portions of this procedure and immediately available for non-critical portions of the procedure. A 22-modifier was applied to this surgery given the increased time, intensity of work, and bariatric instruments that were needed for this procedure due to her body habitus. Mata Smalls MD * Brief Op Note - Cony Wall MD - 07/10/2024 4:16 PM EDT Date: 07/10/24 Location: [facility] Name: Juliet Tim, : 1945, Diagnoses: Pre-op Diagnosis Malignant neoplasm of colon, unspecified part of colon (CMS/HCC) Post-op Diagnosis Malignant neoplasm of colon, unspecified part of colon (CMS/HCC) Procedure(s): Laparoscopic, hand assisted, right colectomy Attending Surgeon(s): * Mata Smalls - Primary Smoke Jumper(s): * Moses Duran MD - Resident - Assisting Cony Wall MD - Resident - Assisting Anesthesia: General ASA: III Blood Administration: Blood Product Administration History None Estimated Blood Loss: Minimal Drains: Urethral Catheter Single lumen;Temperature probe;Non-latex 16 Fr. (Active) Specimen: Specimens ID Source Frozen? 1 Other (specify site) No Description: Right Colon Complications: None; patient tolerated the procedure well. Submitted by: Cony Wall MD - 07/10/2024 Cosigned by Mata Smalls MD at 07/13/2024 3:51 PM EDT * Interval H&P Note - Moses Duran MD - 07/10/2024 1:15 PM EDT H&P reviewed. The patient was examined and there are no changes to the H&P. Consent obtained in preop for laparoscopic right hemicolectomy, possible ileostomy by Dr. Smalls. Source Note - Mata Smalls MD - 06/20/2024 1:15 PM EDT [facility] Colon & Rectal Surgery 06/20/2024 Chief Complaint: Malignant neoplasm of ascending colon (CMS/HCC) [C18.2] HPI: Juliet Tim is a 79 y.o. female with a PMH heart failure s/p heart catheterization, HTN, arthritis, and HLD that presents for evaluation of colon mass found on Colonoscopy 06/[address] Cohen. Patient states that she has been having [...] Total DLP (Dose-Length Product): 1068.95 mGy.cm (accession [id number]), 1068.95 mGy.cm (accession [id number]) Please note: The reported value represents the [...] on exertion Circulatory Coronary artery disease involving [place] coronary artery of [place] heart without angina pectoris Relevant Medications isosorbide mononitrate ER (Imdur) 60 MG 24 hr tablet nebivolol (Bystolic) 10 MG tablet Digestive Malignant neoplasm of colon - Primary Relevant Medications metroNIDAZOLE (Flagyl) 500 MG tablet neomycin (Mycifradin) 500 MG tablet Other Relevant Orders Case Request Operating Room: lap right, possible ileostomy (Completed) 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 (BMI) of 40.0 or higher ([facility]) Juliet Tim is an 79 year old female with [...] saw and evaluated the patient with the medical/DATA MODELER/PA student. I discussed the case with the medical/DATA MODELER/PA student and agree with the findings and [...] Description 08/15/2024 3:00 PM EDT Office Visit [facility] [address] [place] [address] Mata Smalls MD [address] [facility] [address] [place] [address] Scheduled Referrals Name Type Priority Associated Diagnoses Order Schedule Discharge Ambulatory referral to [facility] Home Health Outpatient Referral Routine Malignant neoplasm of colon, unspecified part of colon (CMS/HCC) 1 Occurrences starting 07/12/2024 until 01/12/2026 Discharge Ambulatory referral to NON Physical Therapy Outpatient Referral Routine Malignant neoplasm of ascending colon (CMS/HCC) 1 Occurrences starting 07/14/2024 until 01/14/2026 Discharge Ambulatory referral to NON Occupational Therapy Outpatient Referral Routine Malignant neoplasm of ascending colon (CMS/HCC) 1 Occurrences starting 07/14/2024 until 01/14/2026 Discharge Ambulatory referral to [facility] Physical Therapy Outpatient Referral Routine Malignant neoplasm of ascending colon (CMS/HCC) 1 Occurrences starting 07/15/2024 until 01/15/2026 Discharge Ambulatory referral to NON [facility] Occupational Therapy Outpatient Referral Routine Malignant neoplasm of ascending colon (CMS/HCC) 1 Occurrences starting 07/15/2024 until 01/15/2026 documented as of this encounter Procedures Procedure Name Priority Date/Time Associated Diagnosis Comments XR ABDOMEN 1 VIEW STAT 07/15/2024 10: 14 AM EDT PROCALCITONIN, PLASMA Routine 07/15/2024 3:13 AM EDT CBC W/O DIFFERENTIAL Routine 07/15/2024 3:13 AM EDT C-REACTIVE PROTEIN, PLASMA Routine 07/15/2024 3:13 AM EDT PHOSPHORUS, PLASMA Add-On 07/15/2024 3: 13 AM EDT MAGNESIUM, PLASMA Add-On 07/15/2024 3:1 3 AM EDT BASIC METABOLIC PANEL, PLASMA Routine 07/15/2024 3:13 AM EDT OXYGEN THERAPY Routine 07/14/2024 8:00 AM EDT CBC W/O DIFFERENTIAL Routine 07/14/2024 3:59 AM EDT BASIC METABOLIC PANEL, PLASMA Routine 07/14/2024 3:59 AM EDT OXYGEN THERAPY Routine 07/13/2024 8:00 PM EDT OXYGEN THERAPY Routine 07/13/2024 8:00 AM EDT PROCALCITONIN, PLASMA Routine 07/13/2024 4:46 AM EDT CBC W/O DIFFERENTIAL Routine 07/13/2024 4:46 AM EDT C-REACTIVE PROTEIN, PLASMA Add-On 07/13/2024 4:46 AM EDT PHOSPHORUS, PLASMA Routine 07/13/2024 4: 46 AM EDT MAGNESIUM, PLASMA Routine 07/13/2024 4:4 6 AM EDT BASIC METABOLIC PANEL, PLASMA Routine 07/13/2024 4:46 AM EDT OXYGEN THERAPY Routine 07/12/2024 8:00 PM EDT ANTI XA LEVEL UNFRACTIONATED HEPARIN Routine 07/12/2024 11:21 AM EDT OXYGEN THERAPY Routine 07/12/2024 8:00 AM EDT CBC W/O DIFFERENTIAL Routine 07/12/2024 6:16 AM EDT PHOSPHORUS, PLASMA Routine 07/12/2024 5: 47 AM EDT MAGNESIUM, PLASMA Routine 07/12/2024 5:4 7 AM EDT BASIC METABOLIC PANEL, PLASMA Routine 07/12/2024 5:47 AM EDT OXYGEN THERAPY Routine 07/11/2024 8:00 PM EDT OXYGEN THERAPY Routine 07/11/2024 8:00 AM EDT POCT GLUCOSE METER UNSOLICITED RESULTS Routine 07/11/2024 7:38 AM EDT CBC W/O DIFFERENTIAL Routine 07/11/2024 6:14 AM EDT PHOSPHORUS, PLASMA Routine 07/11/2024 6: 14 AM EDT MAGNESIUM, PLASMA Routine 07/11/2024 6:1 4 AM EDT BASIC METABOLIC PANEL, PLASMA Routine 07/11/2024 6:14 AM EDT OXYGEN THERAPY Routine 07/10/2024 8:40 PM EDT OXYGEN THERAPY Routine 07/10/2024 8:40 PM EDT OXYGEN THERAPY Routine 07/10/2024 8:40 PM EDT SURGICAL PATHOLOGY EXAM Routine 07/10/2024 5:09 PM EDT Malignant neoplasm of colon, unspecified part of colon (CMS/HCC) WY LAP,SURG,COLECTOMY,W/R EMVL TERM ILEUM 07/10/2024 3:06 PM EDT Malignant neoplasm of colon, unspecified part of colon (CMS/HCC) POCT GLUCOSE METER UNSOLICITED RESULTS Routine 07/10/2024 1:42 PM EDT CBC W/O DIFFERENTIAL STAT 07/10/2024 12:59 PM EDT TYPE AND SCREEN Routine 07/10/2024 12:59 PM EDT documented in this encounter Results * XR Abdomen 1 View (07/15/2024 10:14 AM EDT) Anatomical Region Laterality Modality Body Digital Radiogra phy Impressions 07/15/2024 11:15 AM EDT No gas-containing dilated loops of small or large bowel. CRITICAL RESULT: No. COMMUNICATION: Per this written report. Preliminary report signed by Cleopatra Danielle MD on 07/15/2024 10:35 AM By electronically signing this report, I, the attending physician, attest that I have personally reviewed the images/data for the above examination(s) and agree with the final edited report. Drafted by Cleopatra Danielle MD on 07/15/2024 10:33 AM Final report signed by Elisabet Vasquez DO on 07/15/2024 11:15 AM Narrative 07/15/2024 11:15 AM EDT CLINICAL INDICATION: Eval for ileus TECHNIQUE: XR ABDOMEN 1 VIEW COMPARISON: 06/20/2024: CT abdomen/pelvis with contrast FINDINGS: No gas-containing dilated loops of small or large bowel. No pneumatosis or portal venous gas. Moderate gas-distended stomach. No acute osseous findings. Chronic L3 superior endplate compression deformity. Procedure Note Elisabet Vasquez DO - 07/15/2024 CLINICAL INDICATION: Eval for ileus TECHNIQUE: XR ABDOMEN 1 VIEW COMPARISON: 06/20/2024: CT abdomen/pelvis with contrast FINDINGS: No gas-containing dilated loops of small or large bowel. No pneumatosis orportal venous gas. Moderate gas-distended stomach. No acute osseousfindings. Chronic L3 superior endplate compression deformity. IMPRESSION: No gas-containing dilated loops of small or large bowel. CRITICAL RESULT: No. COMMUNICATION: Per this written report. Preliminary report signed by Cleopatra Danielle MD on 07/15/2024 10:35 AM By electronically signing this report, I, the attending physician, attestthat I have personally reviewed the images/data for the aboveexamination(s) and agree with the final edited report. Drafted by Cleopatra Danielle MD on 07/15/2024 10:33 AM Final report signed by Elisabet Vasquez DO on 07/15/2024 11:15 AM us aMta Smalls MD IMG XR PROCEDURES Final Result * Phosphorus (07/15/2024 3:13 AM EDT) Phosphorus, Plasma 3.1 2.5 - 4.5 mg/dL 07/15/2024 6:48 AM EDT [facility] Blood Venous blood specimen / Unknown Venipuncture / Unknown 07/15/2024 3:13 AM EDT 07/15/2024 3:35 AM EDT us Mata Smalls MD LAB BLOOD ORDERABLES Final Res ult Performing Organization Address [facility]/ZIP Co de Phone Number [facility] [address] [place] [address] * Magnesium (07/15/2024 3:13 AM EDT) Magnesium, Plasma 2.1 1.9 - 2.4 mg/dL 07/15/2024 6:48 AM EDT [facility] Blood Venous blood specimen / Unknown Venipuncture / Unknown 07/15/2024 3:13 AM EDT 07/15/2024 3:35 AM EDT us Mata Smalls MD LAB BLOOD ORDERABLES Final Res ult [facility] [address] [place] [address] * (ABNORMAL) Basic metabolic panel (07/15/2024 3:13 AM EDT) Glucose, Plasma 100(H) 74 - 99 mg/dL 07/15/2024 4:11 AM EDT [facility] BUN, Plasma 25(H) 8 - 23 mg/dL 07/15/2024 4:11 AM EDT [facility] Creatinine, Plasma 1.20(H) 0.60 - 1.10 mg/dL 07/15/2024 4:11 AM EDT [facility] BUN/Creatinine Ratio 21 07/15/2024 4:11 AM EDT [facility] Sodium, Plasma 141 136 - 145 mmol/L 07/15/2024 4:11 AM EDT [facility] Potassium, Plasma 4.2 3.6 - 4.9 mmol/L 07/15/2024 4:11 AM EDT [facility] Chloride, Plasma 108(H) 97 - 107 mmol/L 07/15/2024 4:11 AM EDT [facility] CO2, Plasma 22 22 - 29 mmol/L 07/15/2024 4:11 AM EDT [facility] Anion Gap 11 6 - 16 mmol/L 07/15/2024 4:11 AM EDT [facility] Total Calcium, Plasma 8.6(L) 8.9 - 10.2 mg/dL 07/15/2024 4:11 AM EDT [facility] eGFRcr 45.6 mL/min/1.7 3m*2 07/15/2024 4:11 AM EDT [facility] Comment:Reported eGFRcr in m L/min/1.73m2 is based the CKD-EPI 2020 equation that does not use a race coefficient. Blood Venous blood specimen / Unknown Venipuncture / Unknown 07/15/2024 3:13 AM EDT 07/15/2024 3:35 AM EDT us Mata Smalls MD LAB BLOOD ORDERABLES Final Res ult [facility] [address] [place] [address] * (ABNORMAL) CBC (07/15/2024 3:13 AM EDT) WBC Count 7.77 3.70 - 10.30 10*3/uL LAB HEMATOLOGY METHOD 07/15/2024 3:45 AM EDT [facility] RBC Count 3.54(L) 3.90 - 5.20 10*6/uL LAB HEMATOLOGY METHOD 07/15/2024 3:45 AM EDT [facility] HGB 9.6(L) 11.2 - 15.7 g/dL LAB HEMATOLOGY METHOD 07/15/2024 3:45 AM EDT [facility] HCT 30.0(L) 34.0 - 45.0 % LAB HEMATOLOGY METHOD 07/15/2024 3:45 AM EDT [facility] Platelet Count 255 155 - 369 10*3/uL LAB HEMATOLOGY METHOD 07/15/2024 3:45 AM EDT [facility] MCV 85 79 - 98 fL LAB HEMATOLOGY METHOD 07/15/2024 3:45 AM EDT [facility] MCH 27.1 26.0 - 32.0 pg LAB HEMATOLOGY METHOD 07/15/2024 3:45 AM EDT [facility] MCHC 32.0 30.7 - 35.5 g/dL LAB HEMATOLOGY METHOD 07/15/2024 3:45 AM EDT [facility] RDW 17.4(H) 11.5 - 14.5 % LAB HEMATOLOGY METHOD 07/15/2024 3:45 AM EDT [facility] MPV 12.3 8.8 - 12.5 fL LAB HEMATOLOGY METHOD 07/15/2024 3:45 AM EDT [facility] nRBC 0.0 <=0.0 per 100 WBCs LAB HEMATOLOGY METHOD 07/15/2024 3:45 AM EDT [facility] Blood Venous blood specimen / Unknown Venipuncture / Unknown 07/15/2024 3:13 AM EDT 07/15/2024 3:34 AM EDT us Mata Smalls MD LAB BLOOD ORDERABLES Final Res ult [facility] [address] [place] [address] * (ABNORMAL) C-reactive protein (07/15/2024 3:13 AM EDT) CRP, Plasma 226.7(H) <=8.0 mg/L 07/15/2024 4:11 AM EDT [facility] Blood Venous blood specimen / Unknown Venipuncture / Unknown 07/15/2024 3:13 AM EDT 07/15/2024 3:35 AM EDT [facility] - 07/15/2024 4:11 AM EDT This CRP test is appropriate for assessment of infection, systemic inflammation and/or tissue injury. To assess cardiovascular disease risk order high sensitivity CRP (CRPH). us Mata Smalls MD LAB BLOOD ORDERABLES Final Res ult Performing Organization Address [facility]/ZIP Co de Phone Number [facility] [address] [place] [address] * (ABNORMAL) Procalcitonin, Plasma (07/15/2024 3:13 AM EDT) Procalcitonin, Plasma 0.62(H) <0.09 ng/mL 07/15/2024 4:11 AM EDT [facility] Blood Venous blood specimen / Unknown Venipuncture / Unknown 07/15/2024 3:13 AM EDT 07/15/2024 3:35 AM EDT [facility] - 07/15/2024 4:11 AM EDT Procalcitonin concentrations in healthy individuals are <0.09 ng/mL. Published data support the following interpretive risk assessment: An elevated procalcitonin result does not always indicate sepsis. Various non-infectious conditions are known to increase procalcitonin. Results should be considered in the context of clinical symptoms and other laboratory tests. Procalcitonin >2.0 ng/mL: Concentrations >2.0 ng/mL on the first day of ICU admission are associated with a higher risk of progression to severe sepsis and/or septic shock. The change in PCT over time may help predict 28 day mortality risk. Please consult [email or web address]-[email or web address] for more information. Test performed at [facility]. us Mata Smalls MD LAB BLOOD ORDERABLES Final Res ult [facility] [address] [place] [address] * (ABNORMAL) Basic metabolic panel (07/14/2024 3:59 AM EDT) [facility] Glucose, Plasma 97 74 - 99 mg/dL 07/14/2024 4:50 AM EDT [facility] BUN, Plasma 28(H) 8 - 23 mg/dL 07/14/2024 4:50 AM EDT [facility] Creatinine, Plasma 1.34(H) 0.60 - 1.10 mg/dL 07/14/2024 4:50 AM EDT [facility] BUN/Creatinine Ratio 21 07/14/2024 4:50 AM EDT [facility] Sodium, Plasma 138 136 - 145 mmol/L 07/14/2024 4:50 AM EDT [facility] Potassium, Plasma 4.3 3.6 - 4.9 mmol/L 07/14/2024 4:50 AM EDT [facility] Chloride, Plasma 105 97 - 107 mmol/L 07/14/2024 4:50 AM EDT [facility] CO2, Plasma 22 22 - 29 mmol/L 07/14/2024 4:50 AM EDT [facility] Anion Gap 11 6 - 16 mmol/L 07/14/2024 4:50 AM EDT [facility] Total Calcium, Plasma 9.1 8.9 - 10.2 mg/dL 07/14/2024 4:50 AM EDT [facility] eGFRcr 39.9 mL/min/1.7 3m*2 07/14/2024 4:50 AM EDT [facility] Comment:Reported eGFRcr in m L/min/1.73m2 is based the CKD-EPI 2020 equation that does not use a race coefficient. Blood Venous blood specimen / Unknown Venipuncture / Unknown 07/14/2024 3:59 AM EDT 07/14/2024 4:20 AM EDT us Mata Smalls MD LAB BLOOD ORDERABLES Final Res ult [facility] [address] [place] [address] * (ABNORMAL) CBC (07/14/2024 3:59 AM EDT) WBC Count 9.18 3.70 - 10.30 10*3/uL LAB HEMATOLOGY METHOD 07/14/2024 4:33 AM EDT [facility] RBC Count 4.02 3.90 - 5.20 10*6/uL LAB HEMATOLOGY METHOD 07/14/2024 4:33 AM EDT [facility] HGB 10.7(L) 11.2 - 15.7 g/dL LAB HEMATOLOGY METHOD 07/14/2024 4:33 AM EDT [facility] HCT 34.7 34.0 - 45.0 % LAB HEMATOLOGY METHOD 07/14/2024 4:33 AM EDT [facility] Platelet Count 245 155 - 369 10*3/uL LAB HEMATOLOGY METHOD 07/14/2024 4:33 AM EDT [facility] MCV 86 79 - 98 fL LAB HEMATOLOGY METHOD 07/14/2024 4:33 AM EDT [facility] MCH 26.6 26.0 - 32.0 pg LAB HEMATOLOGY METHOD 07/14/2024 4:33 AM EDT [facility] MCHC 30.8 30.7 - 35.5 g/dL LAB HEMATOLOGY METHOD 07/14/2024 4:33 AM EDT [facility] RDW 17.4(H) 11.5 - 14.5 % LAB HEMATOLOGY METHOD 07/14/2024 4:33 AM EDT [facility] MPV 12.6(H) 8.8 - 12.5 fL LAB HEMATOLOGY METHOD 07/14/2024 4:33 AM EDT [facility] nRBC 0.0 <=0.0 per 100 WBCs LAB HEMATOLOGY METHOD 07/14/2024 4:33 AM EDT [facility] Blood Venous blood specimen / Unknown Venipuncture / Unknown 07/14/2024 3:59 AM EDT 07/14/2024 4:27 AM EDT Mata Smalls MD LAB BLOOD ORDERABLES Final Res ult Performing Organization Address [facility] Co de Phone Number [facility] [address] [place] [address] * (ABNORMAL) C-reactive protein (07/13/2024 4:46 AM EDT) CRP, Plasma 234.8(H) <=8.0 mg/L 07/13/2024 7:40 AM EDT [facility] Blood Venous blood specimen / Unknown Venipuncture / Unknown 07/13/2024 4:46 AM EDT 07/13/2024 4:54 AM EDT Narrative [facility] - 07/13/2024 7:40 AM EDT This CRP test is appropriate for assessment of infection, systemic inflammation and/or tissue injury. To assess cardiovascular disease risk order high sensitivity CRP (CRPH). us Mata Samlls MD LAB BLOOD ORDERABLES Final Res ult Performing Organization Address [facility] Co de Phone Number [facility] [address] [place] [address] * (ABNORMAL) Basic metabolic panel (07/13/2024 4:46 AM EDT) Glucose, Plasma 90 74 - 99 mg/dL 07/13/2024 6:07 AM EDT [facility] BUN, Plasma 26(H) 8 - 23 mg/dL 07/13/2024 6:07 AM EDT [facility] Creatinine, Plasma 1.15(H) 0.60 - 1.10 mg/dL 07/13/2024 6:07 AM EDT [facility] BUN/Creatinine Ratio 23 07/13/2024 6:07 AM EDT [facility] Sodium, Plasma 138 136 - 145 mmol/L 07/13/2024 6:07 AM EDT [facility] Potassium, Plasma 4.6 3.6 - 4.9 mmol/L 07/13/2024 6:07 AM EDT [facility] Chloride, Plasma 109(H) 97 - 107 mmol/L 07/13/2024 6:07 AM EDT [facility] CO2, Plasma 18(L) 22 - 29 mmol/L 07/13/2024 6:07 AM EDT [facility] Anion Gap 11 6 - 16 mmol/L 07/13/2024 6:07 AM EDT [facility] Total Calcium, Plasma 8.6(L) 8.9 - 10.2 mg/dL 07/13/2024 6:07 AM EDT [facility] eGFRcr 48.0 mL/min/1.7 3m*2 07/13/2024 6:07 AM EDT [facility] Comment:Reported eGFRcr in m L/min/1.73m2 is based the CKD-EPI 2020 equation that does not use a race coefficient. Blood Venous blood specimen / Unknown Venipuncture / Unknown 07/13/2024 4:46 AM EDT 07/13/2024 4:54 AM EDT us Mata Smalls MD LAB BLOOD ORDERABLES Final Res ult [facility] [address] [place] [address] * (ABNORMAL) CBC (07/13/2024 4:46 AM EDT) WBC Count 10.49(H) 3.70 - 10.30 10*3/uL LAB HEMATOLOGY METHOD 07/13/2024 5:10 AM EDT [facility] RBC Count 4.17 3.90 - 5.20 10*6/uL LAB HEMATOLOGY METHOD 07/13/2024 5:10 AM EDT [facility] HGB 11.1(L) 11.2 - 15.7 g/dL LAB HEMATOLOGY METHOD 07/13/2024 5:10 AM EDT [facility] HCT 36.2 34.0 - 45.0 % LAB HEMATOLOGY METHOD 07/13/2024 5:10 AM EDT [facility] Platelet Count 227 155 - 369 10*3/uL LAB HEMATOLOGY METHOD 07/13/2024 5:10 AM EDT [facility] MCV 87 79 - 98 fL LAB HEMATOLOGY METHOD 07/13/2024 5:10 AM EDT [facility] MCH 26.6 26.0 - 32.0 pg LAB HEMATOLOGY METHOD 07/13/2024 5:10 AM EDT [facility] MCHC 30.7 30.7 - 35.5 g/dL LAB HEMATOLOGY METHOD 07/13/2024 5:10 AM EDT [facility] RDW 17.4(H) 11.5 - 14.5 % LAB HEMATOLOGY METHOD 07/13/2024 5:10 AM EDT [facility] MPV 12.6(H) 8.8 - 12.5 fL LAB HEMATOLOGY METHOD 07/13/2024 5:10 AM EDT [facility] nRBC 0.0 <=0.0 per 100 WBCs LAB HEMATOLOGY METHOD 07/13/2024 5:10 AM EDT [facility] Blood Venous blood specimen / Unknown Venipuncture / Unknown 07/13/2024 4:46 AM EDT 07/13/2024 4:54 AM EDT us Mata Smalls MD LAB BLOOD ORDERABLES Final Res ult [facility] [address] [place] [address] * (ABNORMAL) Procalcitonin, Plasma (07/13/2024 4:46 AM EDT) Procalcitonin, Plasma 1.20(H) <0.09 ng/mL 07/13/2024 6:07 AM EDT [facility] Blood Venous blood specimen / Unknown Venipuncture / Unknown 07/13/2024 4:46 AM EDT 07/13/2024 4:54 AM EDT Narrative [facility] - 07/13/2024 6:07 AM EDT Procalcitonin concentrations in healthy individuals are <0.09 ng/mL. Published data support the following interpretive risk assessment: An elevated procalcitonin result does not always indicate sepsis. Various non-infectious conditions are known to increase procalcitonin. Results should be considered in the context of clinical symptoms and other laboratory tests. Procalcitonin >2.0 ng/mL: Concentrations >2.0 ng/mL on the first day of ICU admission are associated with a higher risk of progression to severe sepsis and/or septic shock. The change in PCT over time may help predict 28 day mortality risk. Please consult [email or web address]-baprhxxdqp.com for more information. Test performed at [facility]. us Mata Smalls MD LAB BLOOD ORDERABLES Final Res ult Performing Organization Address City/[facility] [place] [address] * (ABNORMAL) Phosphorus, Plasma (07/13/2024 4:46 AM EDT) Phosphorus, Plasma 2.1(L) 2.5 - 4.5 mg/dL 07/13/2024 6:07 AM EDT [facility] Blood Venous blood specimen / Unknown Venipuncture / Unknown 07/13/2024 4:46 AM EDT 07/13/2024 4:54 AM EDT us Mata Smalls MD LAB BLOOD ORDERABLES Final Res ult Performing Organization Address [facility] [place] [address] * Magnesium, Plasma (07/13/2024 4:46 AM EDT) Magnesium, Plasma 2.3 1.9 - 2.4 mg/dL 07/13/2024 6:07 AM EDT [facility] Blood Venous blood specimen / Unknown Venipuncture / Unknown 07/13/2024 4:46 AM EDT 07/13/2024 4:54 AM EDT us Mata Smalls MD LAB BLOOD ORDERABLES Final Res ult Performing Organization Address City/[facility] [place] [address] * Anti Xa Level Unfractionated Heparin (07/12/2024 11:21 AM EDT) Anti Xa Level Unfractionated Heparin <0.11 <1.00 IU/mL LAB COAGULATION METHOD 07/12/2024 12:19 PM EDT [facility] Blood Venous blood specimen / Unknown Venipuncture / Unknown 07/12/2024 11:21 AM EDT 07/12/2024 11:41 AM EDT Narrative [facility] - 07/12/2024 12:19 PM EDT Therapeutic Range: UFH Full Dose and ACS/DE protocols*: 0.30 - 0.70 IU/mL UFH Low Dose protocol*: 0.25 - 0.50 IU/mL UFH prophylaxis: Not established us Daniel Porter MD LAB BLOOD ORDERABLES Final Resul t [facility] [address] [place] [address] * (ABNORMAL) CBC (07/12/2024 6:16 AM EDT) WBC Count 10.69(H) 3.70 - 10.30 10*3/uL LAB HEMATOLOGY METHOD 07/12/2024 6:16 AM EDT [facility] RBC Count 3.62(L) 3.90 - 5.20 10*6/uL LAB HEMATOLOGY METHOD 07/12/2024 6:16 AM EDT [facility] HGB 9.7(L) 11.2 - 15.7 g/dL LAB HEMATOLOGY METHOD 07/12/2024 6:16 AM EDT [facility] HCT 32.3(L) 34.0 - 45.0 % LAB HEMATOLOGY METHOD 07/12/2024 6:16 AM EDT [facility] Platelet Count 183 155 - 369 10*3/uL LAB HEMATOLOGY METHOD 07/12/2024 6:16 AM EDT [facility] MCV 89 79 - 98 fL LAB HEMATOLOGY METHOD 07/12/2024 6:16 AM EDT [facility] MCH 26.8 26.0 - 32.0 pg LAB HEMATOLOGY METHOD 07/12/2024 6:16 AM EDT [facility] MCHC 30.0(L) 30.7 - 35.5 g/dL LAB HEMATOLOGY METHOD 07/12/2024 6:16 AM EDT [facility] RDW 17.5(H) 11.5 - 14.5 % LAB HEMATOLOGY METHOD 07/12/2024 6:16 AM EDT [facility] MPV 12.7(H) 8.8 - 12.5 fL LAB HEMATOLOGY METHOD 07/12/2024 6:16 AM EDT [facility] nRBC 0.0 <=0.0 per 100 WBCs LAB HEMATOLOGY METHOD 07/12/2024 6:16 AM EDT [facility] Blood Venous blood specimen / Unknown 07/12/2024 6:08 AM EDT us Mata Smalls MD LAB BLOOD ORDERABLES Final Res ult [facility] [address] [place] [address] * (ABNORMAL) Basic metabolic panel (07/12/2024 5:47 AM EDT) Glucose, Plasma 122(H) 74 - 99 mg/dL 07/12/2024 6:28 AM EDT [facility] BUN, Plasma 26(H) 8 - 23 mg/dL 07/12/2024 6:28 AM EDT [facility] Creatinine, Plasma 1.18(H) 0.60 - 1.10 mg/dL 07/12/2024 6:28 AM EDT [facility] BUN/Creatinine Ratio 22 07/12/2024 6:28 AM EDT [facility] Sodium, Plasma 138 136 - 145 mmol/L 07/12/2024 6:28 AM EDT [facility] Potassium, Plasma 4.7 3.6 - 4.9 mmol/L 07/12/2024 6:28 AM EDT [facility] Chloride, Plasma 108(H) 97 - 107 mmol/L 07/12/2024 6:28 AM EDT [facility] CO2, Plasma 21(L) 22 - 29 mmol/L 07/12/2024 6:28 AM EDT [facility] Anion Gap 9 6 - 16 mmol/L 07/12/2024 6:28 AM EDT [facility] Total Calcium, Plasma 8.6(L) 8.9 - 10.2 mg/dL 07/12/2024 6:28 AM EDT [facility] eGFRcr 46.5 mL/min/1.7 3m*2 07/12/2024 6:28 AM EDT [facility] Comment:Reported eGFRcr in m L/min/1.73m2 is based the CKD-EPI 2020 equation that does not use a race coefficient. Blood Venous blood specimen / Unknown Venipuncture / Unknown 07/12/2024 5:47 AM EDT 07/12/2024 6:00 AM EDT us Mata Smalls MD LAB BLOOD ORDERABLES Final Res ult Performing Organization Address [facility] Co de Phone Number [facility] [address] [place] [address] * Phosphorus, Plasma (07/12/2024 5:47 AM EDT) Phosphorus, Plasma 2.8 2.5 - 4.5 mg/dL 07/12/2024 6:28 AM EDT [facility] Blood Venous blood specimen / Unknown Venipuncture / Unknown 07/12/2024 5:47 AM EDT 07/12/2024 6:00 AM EDT us Mata Smalls MD LAB BLOOD ORDERABLES Final Res ult [facility] [address] [place] [address] * Magnesium, Plasma (07/12/2024 5:47 AM EDT) Magnesium, Plasma 2.3 1.9 - 2.4 mg/dL 07/12/2024 6:28 AM EDT [facility] Blood Venous blood specimen / Unknown Venipuncture / Unknown 07/12/2024 5:47 AM EDT 07/12/2024 6:00 AM EDT us Mata Smalls MD LAB BLOOD ORDERABLES Final Res ult Performing Organization Address City/[facility]/ZIP Co de Phone Number [facility] [address] [place] [address] * (ABNORMAL) POCT glucose meter (07/11/2024 7:38 AM EDT) POCT Glucose 174(H) 74 - 99 mg/dL 07/11/2024 7:39 AM EDT [facility] Comment:Accuracy of a glucos e result obtained from a capillary whole blood specimen relies upon adequate, non-compromised capillary blood flow. If the capillary glucose result is not consistent with the patient's clinical signs and symptoms, glucose testing should be repeated with either an arterial or venous sample on the glucometer or sent to the main labortory for testing. Comment 07/11/2024 7:39 AM EDT [facility] Setup Technician ID Bambi Collazo 07/12/19 7:39 AM EDT [facility] Device ID [id number] 07/11/2024 7:39 AM EDT [facility] Specimen Type POC Capillary 07/11/2024 7:39 AM EDT [facility] Blood Capillary blood specimen / Unknown 07/11/2024 7:38 AM EDT 07/11/2024 7:39 AM EDT us Mata Smalls MD LAB POINT OF CARE TE ST DOCKED DEVICE UNSOLICITED RESULTS Final Result Performing Organization Address [facility] Co de Phone Number [facility] [address] [place] [address] * (ABNORMAL) Basic metabolic panel (07/11/2024 6:14 AM EDT) Glucose, Plasma 733(HH) 74 - 99 mg/dL 07/11/2024 7:17 AM EDT [facility] BUN, Plasma 23 8 - 23 mg/dL 07/11/2024 7:17 AM EDT [facility] Creatinine, Plasma 0.83 0.60 - 1.10 mg/dL 07/11/2024 7:17 AM EDT [facility] BUN/Creatinine Ratio 28 07/11/2024 7:17 AM EDT [facility] Sodium, Plasma 138 136 - 145 mmol/L 07/11/2024 7:17 AM EDT [facility] Potassium, Plasma 4.5 3.6 - 4.9 mmol/L 07/11/2024 7:17 AM EDT [facility] Chloride, Plasma 109(H) 97 - 107 mmol/L 07/11/2024 7:17 AM EDT [facility] CO2, Plasma 16(L) 22 - 29 mmol/L 07/11/2024 7:17 AM EDT [facility] Anion Gap 13 6 - 16 mmol/L 07/11/2024 7:17 AM EDT [facility] Total Calcium, Plasma 7.6(L) 8.9 - 10.2 mg/dL 07/11/2024 7:17 AM EDT [facility] eGFRcr 70.9 mL/min/1.7 3m*2 07/11/2024 7:17 AM EDT [facility] Comment:Reported eGFRcr in m L/min/1.73m2 is based the CKD-EPI 2020 equation that does not use a race coefficient. Blood Venous blood specimen / Unknown Venipuncture / Unknown 07/11/2024 6:14 AM EDT 07/11/2024 6:25 AM EDT us Mata Smalls MD LAB BLOOD ORDERABLES Final Res ult [facility] [address] [place] [address] * (ABNORMAL) CBC (07/11/2024 6:14 AM EDT) WBC Count 15.48(H) 3.70 - 10.30 10*3/uL LAB HEMATOLOGY METHOD 07/11/2024 6:38 AM EDT [facility] RBC Count 3.82(L) 3.90 - 5.20 10*6/uL LAB HEMATOLOGY METHOD 07/11/2024 6:38 AM EDT [facility] HGB 10.5(L) 11.2 - 15.7 g/dL LAB HEMATOLOGY METHOD 07/11/2024 6:38 AM EDT [facility] HCT 34.7 34.0 - 45.0 % LAB HEMATOLOGY METHOD 07/11/2024 6:38 AM EDT [facility] Platelet Count 243 155 - 369 10*3/uL LAB HEMATOLOGY METHOD 07/11/2024 6:38 AM EDT [facility] MCV 91 79 - 98 fL LAB HEMATOLOGY METHOD 07/11/2024 6:38 AM EDT [facility] Comment:Results inconsistent with previous lab findings. MCH 27.5 26.0 - 32.0 pg LAB HEMATOLOGY METHOD 07/11/2024 6:38 AM EDT [facility] MCHC 30.3(L) 30.7 - 35.5 g/dL LAB HEMATOLOGY METHOD 07/11/2024 6:38 AM EDT [facility] RDW 17.4(H) 11.5 - 14.5 % LAB HEMATOLOGY METHOD 07/11/2024 6:38 AM EDT [facility] MPV 12.2 8.8 - 12.5 fL LAB HEMATOLOGY METHOD 07/11/2024 6:38 AM EDT [facility] nRBC 0.0 <=0.0 per 100 WBCs LAB HEMATOLOGY METHOD 07/11/2024 6:38 AM EDT [facility] Blood Venous blood specimen / Unknown Venipuncture / Unknown 07/11/2024 6:14 AM EDT 07/11/2024 6:24 AM EDT us Mata Smalls MD LAB BLOOD ORDERABLES Final Res ult [facility] [address] [place] [address] * (ABNORMAL) Phosphorus, Plasma (07/11/2024 6:14 AM EDT) Phosphorus, Plasma 2.2(L) 2.5 - 4.5 mg/dL 07/11/2024 7:17 AM EDT [facility] Blood Venous blood specimen / Unknown Venipuncture / Unknown 07/11/2024 6:14 AM EDT 07/11/2024 6:25 AM EDT Mata Smalls MD LAB BLOOD ORDERABLES Final Res ult Performing Organization Address [facility]/ZIP Co de Phone Number [facility] [address] [place] [address] * (ABNORMAL) Magnesium, Plasma (07/11/2024 6:14 AM EDT) Magnesium, Plasma 1.8(L) 1.9 - 2.4 mg/dL 07/11/2024 7:17 AM EDT [facility] Blood Venous blood specimen / Unknown Venipuncture / Unknown 07/11/2024 6:14 AM EDT 07/11/2024 6:25 AM EDT Mata Smalls MD LAB BLOOD ORDERABLES Final Res ult Performing Organization Address [facility] Co de Phone Number [facility] [address] [place] [address] * Surgical Pathology Exam (07/10/2024 5:09 PM EDT) Case Report Surgical Pathology Case: [id number] Authorizing Provider: Mata Smalls MD Collected: 07/10/2024 1709 Ordering Location: [facility] Received: 07/11/2024 0810 Pathologist: Gayatri Granados MD Specimen: Other (specify site), Right Colon 3:01 PM EDT [facility] Final Diagnosis A. RIGHT COLON, RESECTION: - ADENOCARCINOMA, pT3, pN0, SEE SYNOPTIC CHECKLIST. - MARGINS NEGATIVE FOR TUMOR. - THIRTEEN LYMPH NODES NEGATIVE FOR MALIGNANCY, (0/13). - SESSILE SERRATED ADENOMA. 3:01 PM EDT [facility] at 1501 EDT Synoptic Checklist COLON AND RECTUM: Resection COLON AND RECTUM: RESECTION - All Specimens 8th Edition - Protocol posted: 08/11/2023 SPECIMEN Procedure: Right hemicolectomy TUMOR Tumor Site: Hepatic flexure Histologic Type: Adenocarcinoma Histologic Grade: G3, poorly differentiated Tumor Size: Greatest dimension (Centimeters): 6 cm Tumor Extent: Invades through muscularis propria into the pericolonic or perirectal tissue Macroscopic Tumor Perforation: Not identified Lymphatic and / or Vascular Invasion: Present Perineural Invasion: Not identified Tumor Budding Score: Intermediate (5-9) Treatment Effect: No known presurgical therapy MARGINS Margin Status for Invasive Carcinoma: All margins negative for invasive carcinoma Margin Status for Non-Invasive Tumor: All margins negative for high-grade dysplasia / intramucosal carcinoma and low-grade dysplasia REGIONAL LYMPH NODES Regional Lymph Node Status: : All regional lymph nodes negative for tumor Number of Lymph Nodes Examined: 13 Tumor Deposits: Not identified pTNM CLASSIFICATION (AJCC 8th Edition) Reporting of pT, pN, and (when applicable) pM categories is based on information available to the pathologist at the time the report is issued. As per the AJCC (Chapter 1, 8th Ed.) it is the managing physician's responsibility to establish the final pathologic stage based upon all pertinent information, including but potentially not limited to this pathology report. pT Category: pT3 pN Category: pN0 5 3:01 PM EDT [facility] Tumor Blocks Tumor blocks: A9 5 3:01 PM EDT [facility] Clinical Information Malignant neoplasm of colon, unspecified part of colon (CMS/HCC) [C18.9] 5 3:01 PM EDT [facility] Special and Immunohistochemical Stains Immunostains were performed that in conjunction with the morphology supports the diagnosis. IHC: A9-2 CK20: focal positive staining in tumor cells A9-3 CDX-2: focal weak positive staining in tumor cells All controls show appropriate reactivity. All immunohistochemis try, in situ hybridization, and histochemical tests were developed by and are performed at the [facility], [address] [place] [address]. All tests reported here, except those addressing HER2 (breast) and PD-L1 expression as predictive markers, have not been cleared by or approved by the US Food and Drug Administration (FDA). The FDA has determined that such clearance or approval is not necessary. The laboratory is regulated under CLIA as qualified to perform high-complexity testing. The tests are used for clinical purposes. They should not be regarded as investigational or for research. This assay has not been validated on decalcified tissues. Results should be interpreted with caution given the likelihood of false negativity on decalcified specimens. 5 3:01 PM EDT [facility] Gross Description A. RIGHT COLON Received fresh and subsequently placed in formalin, labeled r ight colon , consisting of the right extended hemicolectomy specimen,, including: Terminal ileum (15.0 cm in length by 1.9 cm in diameter), cecum and colon (26.8 cm in length by 7.6 cm in internal circumference) . No appendix is grossly present. The serosal surface is smooth to roughened, with a focal area of puckering (inked blue), 2.5 x 1.0 cm that is 7.9 cm from the distal margin, that is adjacent to a area of tattooing, 3.4 cm in length, that is 4.5 cm from the distal margin. The specimen is opened revealing a near circumferential fungating mass with an ulcerated center and heaped up borders in the distal colon, 5.2 cm in length by 6.0 cm in width, that is 8.5 cm from the distal margin and 27.4 cm from the proximal margin. The terminal ileum mucosa is granular pink to green frankel and normally folded, no discrete masses or lesions are grossly appreciated. The colonic mucosa is smooth pink frankel normally folded, with 3 polypoid lesions: #1 0.4 x 0.3 x 0.3 cm, 17.4 cm from the proximal margin; #2 0.8 x 0.3 x 0.3 cm, that is 22.2 cm from the proximal margin; #3 0.3 x 0.3 x 0.2 cm, 3.0 cm from the distal margin and 33.5 cm from the proximal margin. The specimen is sectioned revealing the mass invading through the muscularis propria involving the pericolonic soft tissue, no serosal involvement is grossly appreciated,that comes to within approximately 3.0 cm of the mesenteric margin. The uninvolved thickness ranges from 1-2 mm. The pericolonic soft tissue is palpated and sectioned revealing multiple lymph node candidates, ranging in size from 0.3-0.8 cm in greatest dimension. The specimen is representatively submitted as follows: A1: Proximal margin, en face A2: Zoo Keeper terminal ileum A3: Ileocecal valve A4: Appendiceal resection margin A5: Representatively colonic mucosa A6: Polypoid lesion #1 A7: Polypoid lesion # 2, bisected A8: Polypoid lesion # 3 A9: Mass to blue inked area of puckering A10: Mass with possible pericolonic soft tissue involvement A11: Mass to uninvolved mucosa with area of tattooing A12-A13: Zoo Keeper mass A14: Distal margin, en face A15: Closest mesenteric margin to mass A16: 1 lymph node candidate, trisected A17: 1 lymph node candidate, bisected A18: 1 lymph node candidate, sectioned A19: 1 lymph node candidate, bisected A20: 3 intact lymph node candidates A21: 1 lymph node candidate, bisected A22: 2 intact lymph node candidates A23: 1 lymph node candidate, bisected A24-A25: Soft tissue for possible minute lymph node candidates A second lymph node search was performed. A26: 1 lymph node candidate, bisected A27: 1 lymph node candidate, bisected A28: 3 intact lymph node candidates A29: 1 lymph node candidate, bisected A30: 4 intact lymph node candidates A31: 5 intact lymph node candidates A32: 4 intact lymph node candidates A33-A37: Soft tissue for possible minute lymph node candidates Cold Time: 15h 01m BENITO Palencia (ASCP) 5 3:01 PM EDT [facility] Tissue Topography unknown / Unknown 07/10/2024 5:09 PM EDT 07/11/2024 8:10 AM EDT Comment:Pre-op diagnosis: Malignant neoplasm of colon, unspecified part of colon (CMS/HCC) [C18.9] Mata Smalls MD LAB PATHOLOGY ORDERABLES Final Result [facility] [address] [place] [address] * POCT glucose meter (07/10/2024 1:42 PM EDT) POCT Glucose 93 74 - 99 mg/dL 07/10/2024 1:44 PM EDT [facility] Comment:Accuracy of a glucos e result obtained from a capillary whole blood specimen relies upon adequate, non-compromised capillary blood flow. If the capillary glucose result is not consistent with the patient's clinical signs and symptoms, glucose testing should be repeated with either an arterial or venous sample on the glucometer or sent to the main labortory for testing. Comment 07/10/2024 1:44 PM EDT [facility] Setup Technician ID Mercedez Bowman 07/10/2024 1:44 PM EDT [facility] Device ID [id number] 07/10/2024 1:44 PM EDT [facility] Specimen Type POC Capillary 07/10/2024 1:44 PM EDT [facility] Blood Capillary blood specimen / Unknown 07/10/2024 1:42 PM EDT 07/10/2024 1:44 PM EDT us Maat Smalls MD LAB POINT OF CARE TE ST DOCKED DEVICE UNSOLICITED RESULTS Final Result Performing Organization Address [facility] Co de Phone Number [facility] [address] [place] [address] * Type and screen (07/10/2024 12:59 PM EDT) ABO/Rh O Positive 07/10/2024 12:28 PM EDT [facility] Antibody Screen Negative 07/10/2024 12:28 PM EDT [facility] Specimen Expiration 07/13/2024 23:59 07/10/2024 12:28 PM EDT [facility] Blood Venous blood specimen / Unknown Venipuncture / Unknown 07/10/2024 12:59 PM EDT 07/10/2024 1:10 PM EDT us Mata Smalls MD LAB BLOOD BANK TEST ORDERABLES Final Result Performing Organization Address City/[facility] Co de Phone Number BLOOD BANK [address] [place] [address], * (ABNORMAL) CBC (07/10/2024 12:59 PM EDT) WBC Count 8.10 3.70 - 10.30 10*3/uL LAB HEMATOLOGY METHOD 07/10/2024 1:19 PM EDT [facility] RBC Count 4.63 3.90 - 5.20 10*6/uL LAB HEMATOLOGY METHOD 07/10/2024 1:19 PM EDT [facility] HGB 12.4 11.2 - 15.7 g/dL LAB HEMATOLOGY METHOD 07/10/2024 1:19 PM EDT [facility] HCT 39.3 34.0 - 45.0 % LAB HEMATOLOGY METHOD 07/10/2024 1:19 PM EDT [facility] Platelet Count 232 155 - 369 10*3/uL LAB HEMATOLOGY METHOD 07/10/2024 1:19 PM EDT [facility] MCV 85 79 - 98 fL LAB HEMATOLOGY METHOD 07/10/2024 1:19 PM EDT [facility] MCH 26.8 26.0 - 32.0 pg LAB HEMATOLOGY METHOD 07/10/2024 1:19 PM EDT [facility] MCHC 31.6 30.7 - 35.5 g/dL LAB HEMATOLOGY METHOD 07/10/2024 1:19 PM EDT [facility] RDW 17.1(H) 11.5 - 14.5 % LAB HEMATOLOGY METHOD 07/10/2024 1:19 PM EDT [facility] MPV 12.7(H) 8.8 - 12.5 fL LAB HEMATOLOGY METHOD 07/10/2024 1:19 PM EDT [facility] nRBC 0.0 <=0.0 per 100 WBCs LAB HEMATOLOGY METHOD 07/10/2024 1:19 PM EDT [facility] Blood Venous blood specimen / Unknown Venipuncture / Unknown 07/10/2024 12:59 PM EDT 07/10/2024 1:07 PM EDT us Mata Smalls MD LAB BLOOD ORDERABLES Final Res ult [facility] [address] [place] [address] documented in this encounter Visit Diagnoses Diagnosis Malignant neoplasm of colon, unspecified part of colon (CMS/HCC) Malignant neoplasm of ascending colon (CMS/HCC) Malignant neoplasm of ascending colon Malignant neoplasm of colon, unspecified part of colon (CMS/HCC) documented in this encounter Admitting Diagnoses Diagnosis Malignant neoplasm of colon Malignant neoplasm of colon, unspecified site Malignant neoplasm of colon, unspecified part of colon (CMS/HCC) documented in this encounter Administered Medications Inactive Administered Medications - up to 3 most recent administrations Medication Order MAR Action Action Date Dose Rate Site acetaminophen (Ofirmev) injection 1,000 mg 1,000 mg, Intravenous, Every 6 hours, 4 doses, First dose on Wed07/10/24 at 2130, Last dose on Wed07/11/24 at 1530, Routine New Bag 07/11/2024 4:14 PM EDT 1,000 mg 400 mL /hr New Bag 07/11/2024 8:32 AM EDT 1,000 mg 400 mL/hr New Bag 07/10/2024 9:48 PM EDT 1,000 mg 400 mL/hr acetaminophen (Tylenol) tablet 1,000 mg 1,000 mg, Oral, Every 6 hours, First dose on Wed07/11/24 at 2130, Until Discontinued, Routine, Recovery(Phase II-Outpatient)/On Unit(Inpatient) Given 07/11/2024 8:41 PM EDT 1,000 mg acetaminophen (Tylenol) tablet 500 mg 500 mg, Oral, Every 6 hours, First dose (after last modification) on Wed07/12/24 at 1530, Until Discontinued, Routine, Recovery(Phase II-Outpatient)/On Unit(Inpatient) Given 07/15/2024 3:00 PM EDT 500 mg Given 07/15/2024 10:08 AM EDT 500 mg Given 07/14/2024 8:44 PM EDT 500 mg alvimopan (Entereg) capsule 12 mg 12 mg, Oral, Once, 1 dose, On Wed07/10/24 at 1315, Routine, Holding - Preprocedure Given 07/10/2024 1:09 PM EDT 12 mg alvimopan (Entereg) capsule 12 mg 12 mg, Oral, 2 times daily, 14 doses, First dose on Wed07/10/24 at 2130, Last dose on Wed07/17/24 at 0900, Routine, Recovery(Phase II-Outpatient)/On Unit(Inpatient) Given 07/14/2024 8:11 AM EDT 12 mg Given 07/13/2024 8:33 PM EDT 12 mg Given 07/13/2024 9:20 AM EDT 12 mg bumetanide (Bumex) tablet 1 mg 1 mg, Oral, Daily, First dose on Wed07/13/24 at 0900, Until Discontinued, Routine Given 07/14/2024 8:10 AM EDT 1 mg Given 07/13/2024 9:13 AM EDT 1 mg celecoxib (CeleBREX) capsule 200 mg 200 mg, Oral, Once, 1 dose, On Wed07/10/24 at 1315, Routine, Holding - Preprocedure Given 07/10/2024 1:10 PM EDT 200 mg dextrose 5 % and lactated Ringer's infusion 42 mL/hr, Intravenous, Continuous, Starting on Wed07/10/24 at 2130, Until Wed07/12/24 at 0809, Routine New Bag 07/10/2024 9:47 PM EDT 42 mL/hr 42 mL/hr famotidine PF (Pepcid) injection 20 mg 20 mg, Intravenous, Once, 1 dose, On Wed07/10/24 at 1315, Routine, Holding - Preprocedure Given 07/10/2024 1:10 PM EDT 20 mg furosemide (Lasix) tablet 20 mg 20 mg, Oral, Daily, First dose on Wed07/15/24 at 0900, Until Discontinued, Routine gabapentin (Neurontin) capsule 300 mg 300 mg, Oral, Once, 1 dose, On Wed07/10/24 at 1315, Routine, Holding - Preprocedure Given 07/10/2024 1:09 PM EDT 300 mg heparin (porcine) injection 7,500 Units 7,500 Units, Subcutaneous, Every 8 hours scheduled, First dose (after last modification) on Wed07/10/24 at 1315, Until Discontinued, Routine, Holding - Preprocedure Given 07/10/2024 2:56 PM EDT 7,500 Units Right Lower Abdomen heparin (porcine) injection 7,500 Units 7,500 Units, Subcutaneous, Every 8 hours, First dose on Wed07/11/24 at 0000, Until Discontinued, Routine, Recovery(Phase II-Outpatient)/On Unit(Inpatient) Given 07/15/2024 12:14 AM EDT 7,500 Units Right Upper Arm (Back) Given 07/14/2024 4:53 PM EDT 7,500 Units L eft Upper Arm (Back) Given 07/14/2024 8:10 AM EDT 7,500 Units L eft Upper Arm (Back) HYDROcodone-acetaminophen (Bartlett) 5-325 MG per tablet 7.5 mg of hydrocodone 7.5 mg of hydrocodone, Oral, Every 4 hours PRN, Starting on Wed07/12/24 at 0638, Until Wed07/12/24 at 0924, Routine, moderate pain Given 07/12/2024 9:09 AM EDT 7.5 mg of hydrocodone HYDROcodone-acetaminophen (Bartlett) 5-325 MG per tablet 7.5 mg of hydrocodone 7.5 mg of hydrocodone, Oral, Every 4 hours PRN, Starting on Wed07/12/24 at 1357, Until Wed07/15/24 at 1846, Routine, Recovery(Phase II-Outpatient)/On Unit(Inpatient), severe pain, moderate pain Given 07/15/2024 3:00 PM EDT 7.5 mg of hydrocodone Given 07/15/2024 8:33 AM EDT 7.5 mg of hydrocodone Given 07/15/2024 3:08 AM EDT 7.5 mg of hydrocodone HYDROmorphone (PF) 10 mcg/mL + bupivacaine (PF) 1.25 mg/mL in 100 mL (PF) [employer] Continuous Rate: 2 mL/hr, PCEA Dose: 1 mL, PCEA Lockout: 10 Minutes, Nurse Loading Dose: Not Ordered, Epidural, Routine New Bag 07/11/2024 3:01 PM EDT New Bag 07/10/2024 6:29 PM EDT hydromorphone 10 mcg/mL + bupivacaine 1.25 mg/mL clinician bolus dose 1-5 mL, Epidural, As needed, Starting on Wed07/10/24 at 1723, Until Wed07/12/24 at 1402, Routine, severe pain Bolus from Bag 07/10/2024 6:30 PM EDT 5 mL isosorbide mononitrate ER (Imdur) 24 hr tablet 60 mg 60 mg, Oral, Daily, First dose on Viv 07/13/24 at 1030, Until Discontinued, Routine Given 07/15/2024 8:33 AM EDT 60 mg Given 07/14/2024 8:10 AM EDT 60 mg Given 07/13/2024 11:37 AM EDT 60 mg lactated Ringer's infusion 50 mL/hr, Intravenous, Continuous, Starting on Wed07/10/24 at 1315, Until Wed07/11/24 at 0703, Routine New Bag 07/10/2024 7:08 PM EDT 50 mL/ hr 50 mL/hr New Bag 07/10/2024 5:49 PM EDT 125 mL/hr New Bag 07/10/2024 3:22 PM EDT 125 mL/hr methocarbamol (Robaxin) tablet 500 mg 500 mg, Oral, Every 6 hours scheduled, First dose on Wed07/11/24 at 0000, Until Discontinued, Routine, Recovery(Phase II-Outpatient)/On Unit(Inpatient) Given 07/15/2024 12:01 PM EDT 500 mg Given 07/15/2024 5:37 AM EDT 500 mg Given 07/15/2024 12:14 AM EDT 500 mg mirabegron ER (Myrbetriq) tablet 50 mg 50 mg, Oral, Daily, First dose on Wed07/12/24 at 1045, Until Discontinued Given 07/15/2024 8:33 AM EDT 50 mg Given 07/14/2024 8:11 AM EDT 50 mg Given 07/13/2024 9:20 AM EDT 50 mg mupirocin (Bactroban) 2 % ointment 1 Application Each Nostril, 2 times daily, 10 doses, First dose on Wed07/11/24 at 2100, Last dose on Wed07/16/24 at 0900, Routine Given 07/15/2024 8:34 AM EDT 1 Application Given 07/14/2024 8:18 PM EDT 1 Application Given 07/14/2024 8:11 AM EDT 1 Application nebivolol (Bystolic) tablet 2.5 mg 2.5 mg, Oral, Daily, First dose on Wed07/10/24 at 2100, Until Discontinued, Recovery(Phase II-Outpatient)/On Unit(Inpatient) Given 07/12/2024 8:36 PM EDT 2.5 mg Given 07/11/2024 8:46 PM EDT 2.5 mg Given 07/10/2024 9:48 PM EDT 2.5 mg nebivolol (Bystolic) tablet 5 mg 5 mg, Oral, Daily, First dose (after last modification) on Viv 07/13/24 at 2100, Until Discontinued, Recovery(Phase II-Outpatient)/On Unit(Inpatient) Given 07/14/2024 8:44 PM EDT 5 mg Given 07/13/2024 8:33 PM EDT 5 mg ondansetron (Zofran) 4 MG/5ML solution 4 mg 4 mg, Oral, Every 6 hours PRN, Starting on Wed07/10/24 at 2040, Until 07/15/24 at 1846, Routine, Recovery(Phase II-Outpatient)/On Unit(Inpatient), nausea, vomiting ondansetron (Zofran) injection 4 mg 4 mg, Intravenous, Every 6 hours PRN, Starting on Wed07/10/24 at 2040, Until 07/15/24 at 1846, Routine, Recovery(Phase II-Outpatient)/On Unit(Inpatient), vomiting, nausea Given 07/13/2024 4:40 AM EDT 4 mg Given 07/11/2024 11:39 PM EDT 4 mg Given 07/11/2024 4:04 PM EDT 4 mg ondansetron (Zofran) injection 4 mg 4 mg, Intravenous, Once as needed, 1 dose, Starting on Wed07/10/24 at 1746, Until Wed07/10/24 at 1825, Routine, Recovery (Phase I only), nausea, vomiting Given 07/10/2024 6:25 PM EDT 4 mg ondansetron ODT (Zofran-ODT) disintegrating tablet 4 mg 4 mg, Oral, Every 6 hours PRN, Starting on Wed07/10/24 at 2040, Until 07/15/24 at 1846, Routine, Recovery(Phase II-Outpatient)/On Unit(Inpatient), nausea, vomiting Given 07/14/2024 4:04 AM EDT 4 mg Given 07/11/2024 1:31 PM EDT 4 mg pantoprazole (Protonix) EC tablet 40 mg 40 mg, Oral, 2 times daily, First dose on Wed07/12/24 at 1045, Until Discontinued, Routine Given 07/15/2024 8:33 AM EDT 40 mg Given 07/14/2024 8:18 PM EDT 40 mg Given 07/14/2024 8:10 AM EDT 40 mg Povidone-Iodine 5 % swab solution 1 Application Nasal, Once, 1 dose, On Wed07/10/24 at 1315, Routine Given 07/10/2024 1:11 PM EDT 1 Application pravastatin (Pravachol) tablet 80 mg 80 mg, Oral, Nightly, First dose on Wed07/10/24 at 2100, Until Discontinued, Recovery(Phase II-Outpatient)/On Unit(Inpatient) Given 07/14/2024 8:18 PM EDT 80 mg Given 07/13/2024 8:33 PM EDT 80 mg Given 07/12/2024 8:36 PM EDT 80 mg pregabalin (Lyrica) capsule 75 mg 75 mg, Oral, 2 times daily, First dose on Wed07/10/24 at 2130, Until Discontinued, Routine, Recovery(Phase II-Outpatient)/On Unit(Inpatient) Given 07/15/2024 8:33 AM EDT 75 mg Given 07/14/2024 8:18 PM EDT 75 mg Given 07/14/2024 8:10 AM EDT 75 mg documented in this encounter Active and Recently Administered Medications Times are shown in EDT. Scheduled Medication Order 07/13/2024 07/14/2024 07/15/2024 acetaminophen (Tylenol) tablet 500 mg 500 mg, Oral, Every 6 hours, First dose (after last modification) on Wed07/12/24 at 1530, Until Discontinued, Routine, Recovery(Phase II-Outpatient)/On Unit(Inpatient) 0326 (Not Given - Provider: Fiordaliza George RN - Reason: Hold for condition: must add comment - Comment: patient sleeping)0912 (Given - Provider: Bambi Collazo RN)1523 (Given - Provider: Bambi Collazo RN)203 (Not Given - Provider: Fiordaliza George RN - Reason: Hold for condition: must add comment - Comment: cumulative overdose) 0249 (Not Given - Provider: Fiordaliza Goerge RN - Reason: Hold for condition: must add comment - Comment: sleeping)0948 (Given - Provider: Cherelle Eason RN)1654 (Given - Provider: Cherelle Eason RN)2044 (Given - Provider: Roya Gallagher RN) 0309 (Not Given - Provider: Roya Gallagher RN - Reason: Hold for condition: must add comment - Comment: cumulative overdose)1008 (Given - Provider: Mary Kaba)1500 (Given - Provider: Mary Kaba) alvimopan (Entereg) capsule 12 mg (CANCELED) 12 mg, Oral, 2 times daily, 14 doses, First dose on Wed07/10/24 at 2130, Last dose on Wed07/17/24 at 0900, Routine, Recovery(Phase II-Outpatient)/On Unit(Inpatient) 0920 (Given - Provider: Bambi Collazo, ARRON)2033 (Given - Provider: Fiordaliza George RN) 0811 (Given - Provider: Cherelle Eason, ARRON) bumetanide (Bumex) tablet 1 mg (CANCELED) 1 mg, Oral, Daily, First dose on Viv 07/13/24 at 0900, Until Discontinued, Routine 0913 (Given - Provider: Bambi Collazo RN) 0810 (Given - Provider: Cherelle Eason, ARRON) furosemide (Lasix) tablet 20 mg 20 mg, Oral, Daily, First dose on Wed07/15/24 at 0900, Until Discontinued, Routine 0834 (Not Given - Provider: Mary Kaba - Reason: Patient/family refused) heparin (porcine) injection 7,500 Units 7,500 Units, Subcutaneous, Every 8 hours, First dose on Wed07/11/24 at 0000, Until Discontinued, Routine, Recovery(Phase II-Outpatient)/On Unit(Inpatient) 0003 (Given - Provider: Fiordaliza George RN)0912 (Given - Provider: Bambi Collazo RN)1524 (Given - Provider: Bambi Collazo RN)2330 (Given - Provider: Fiordaliza George RN) 0810 (Given - Provider: Cherelle Eason, ARRON)1653 (Given - Provider: Cherelle Eason, ARRON) 0014 (Given - Provider: Roya Gallagher RN)0834 (Not Given - Provider: Mary Kaba - Reason: Patient/family refused)1503 (Not Given - Provider: Mary Kaba - Reason: Patient/family refused) isosorbide mononitrate ER (Imdur) 24 hr tablet 60 mg 60 mg, Oral, Daily, First dose on Wed07/13/24 at 1030, Until Discontinued, Routine 1137 (Given - Provider: Bambi Collazo RN) 0810 (Given - Provider: Cherelle Eason, ARRON) 0833 (Given - Provider: Mary Kaba) methocarbamol (Robaxin) tablet 500 mg 500 mg, Oral, Every 6 hours scheduled, First dose on Wed07/11/24 at 0000, Until Discontinued, Routine, Recovery(Phase II-Outpatient)/On Unit(Inpatient) 0003 (Given - Provider: Fiordaliza George RN)0441 (Given - Provider: Fiordaliza George RN)1137 (Given - Provider: Bambi Collazo RN)1823 (Given - Provider: Bambi Collazo, ARRON)2330 (Given - Provider: Fiordaliza George RN) 0527 (Given - Provider: Fiordaliza George RN)1215 (Given - Provider: Cherelle Eason RN)1718 (Given - Provider: Cherelle Eason RN) 0014 (Given - Provider: Roya Gallagher RN)0537 (Given - Provider: Roya Gallagher RN)1201 (Given - Provider: Mary Kaba)1800 (Canceled Entry - Provider: Automatic Discharge Provider - Comment: Automatically canceled at discontinue of medication order) mirabegron ER (Myrbetriq) tablet 50 mg 50 mg, Oral, Daily, First dose on Wed07/12/24 at 1045, Until Discontinued 0920 (Given - Provider: Bambi Collazo RN) 0811 (Given - Provider: Cherelle Eason RN) 0833 (Given - Provider: Mary Kaba) mupirocin (Bactroban) 2 % ointment 1 Application Each Nostril, 2 times daily, 10 doses, First dose on Wed07/11/24 at 2100, Last dose on Wed07/16/24 at 0900, Routine 0913 (Given - Provider: Bambi Collazo RN)203 (Given - Provider: Fiordaliza George RN) 0811 (Given - Provider: Cherelle Eason, ARRON)2018 (Given - Provider: Roya Gallagher RN) 0834 (Given - Provider: Mary Kaba) nebivolol (Bystolic) tablet 5 mg 5 mg, Oral, Daily, First dose (after last modification) on Viv 07/13/24 at 2100, Until Discontinued, Recovery(Phase II-Outpatient)/On Unit(Inpatient) 2032 (Given - Provider: Fiordaliza George RN) 2043 (Given - Provider: Roya Gallagher, RN) pantoprazole (Protonix) EC tablet 40 mg 40 mg, Oral, 2 times daily, First dose on Wed07/12/24 at 1045, Until Discontinued, Routine 09 (Given - Provider: Bambi Collazo, ARRON)2032 (Given - Provider: Fiordaliza George RN) 08 (Given - Provider: Cherelle Eason, ARRON)2017 (Given - Provider: Roya Gallagher, ARRON) 0833 (Given - Provider: Mary Kaba) pravastatin (Pravachol) tablet 80 mg 80 mg, Oral, Nightly, First dose on 07/10/24 at 2100, Until Discontinued, Recovery(Phase II-Outpatient)/On Unit(Inpatient) 2032 (Given - Provider: Fiordaliza George RN) 2017 (Given - Provider: Roya Gallagher, ARRON) pregabalin (Lyrica) capsule 75 mg 75 mg, Oral, 2 times daily, First dose on Wed07/10/24 at 2130, Until Discontinued, Routine, Recovery(Phase II-Outpatient)/On Unit(Inpatient) 0913 (Given - Provider: Bambi Collazo, ARRON)2032 (Given - Provider: Fiordaliza George RN) 08 (Given - Provider: Cherelle Eason, ARRON)2017 (Given - Provider: Roya Gallagher, ARRON) 0833 (Given - Provider: Mary Kaba) PRN Medication Order 07/13/2024 07/14/2024 07/15/2024 HYDROcodone-acetaminophe n (Bartlett) 5-325 MG per tablet 7.5 mg of hydrocodone 7.5 mg of hydrocodone, Oral, Every 4 hours PRN, Starting on 07/12/24 at 1357, Until 07/15/24 at 1846, Routine, Recovery(Phase II-Outpatient)/On Unit(Inpatient), severe pain, moderate pain 0003 (Given - Provider: Fiordaliza George RN)0441 (Given - Provider: Fiordaliza George RN)0920 (Given - Provider: Bambi Collazo, ARRON)1523 (Given - Provider: Bambi Collazo, ARRON)2033 (Given - Provider: Fiordaliza George RN) 0344 (Given - Provider: Fiordaliza George RN)0820 (Given - Provider: Cherelle Eason, ARRON)1215 (Given - Provider: Cherelle Eason, ARRON)1654 (Given - Provider: Cherelle Eason, RN)2044 (Given - Provider: Roya Gallagher, ARRON) 0308 (Given - Provider: Roya Gallagher RN)0833 (Given - Provider: Mary Kaba)1500 (Given - Provider: Mary Kaba) ondansetron (Zofran) 4 MG/5ML solution 4 mg(Linked Group 1) 4 mg, Oral, Every 6 hours PRN, Starting on Wed07/10/24 at 2039, Until 07/15/24 at 1846, Routine, Recovery(Phase II-Outpatient)/On Unit(Inpatient), nausea, vomiting 0440 (See Alternative - Provider: Fiordaliza George RN) 0404 (See Alternative - Provider: Fiordaliza George RN) ondansetron (Zofran) injection 4 mg(Linked Group 1) 4 mg, Intravenous, Every 6 hours PRN, Starting on Wed07/10/24 at 2039, Until 07/15/24 at 1846, Routine, Recovery(Phase II-Outpatient)/On Unit(Inpatient), vomiting, nausea 0440 (Given - Provider: Fiordaliza George RN) 0404 (See Alternative - Provider: Fiordaliza George RN) ondansetron ODT (Zofran-ODT) disintegrating tablet 4 mg(Linked Group 1) 4 mg, Oral, Every 6 hours PRN, Starting on Wed07/10/24 at 2039, Until 07/15/24 at 1846, Routine, Recovery(Phase II-Outpatient)/On Unit(Inpatient), nausea, vomiting 0440 (See Alternative - Provider: Fiordaliza George RN) 0404 (Given - Provider: Fiordaliza George RN) Linked Groups Order Group 1: ondansetron ODT (Zofran-ODT) disintegrating tablet 4 mgJump to med 4 mg, Oral, Every 6 hours PRN, Starting on 07/10/24 at 2040, Until 07/15/24 at 1846, Routine, Recovery(Phase II-Outpatient)/On Unit(Inpatient), nausea, vomiting Or ondansetron (Zofran) injection 4 mgJump to med 4 mg, Intravenous, Every 6 hours PRN, Starting on 07/10/24 at 2040, Until 07/15/24 at 1846, Routine, Recovery(Phase II-Outpatient)/On Unit(Inpatient), vomiting, nausea Or ondansetron (Zofran) 4 MG/5ML solution 4 mgJump to med 4 mg, Oral, Every 6 hours PRN, Starting on 07/10/24 at 2040, Until 07/15/24 at 1846, Routine, Recovery(Phase II-Outpatient)/On Unit(Inpatient), nausea, vomiting documented in this encounter Additional Health Concerns Assessment Noted Time A fall risk assessment has been complete d for the patient 06/20/2024 1:33 PM EDT A Body Mass Index follow-up plan has been documented for the patient 07/15/2024 3:46 PM EDT documented as of this encounter Care Teams 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
--- OUTSIDE RECORDS SUMMARY | 2024-07-10 13:15 | XMS_ITS | Encounter Summary ---
Author Organization [facility] Address [address] [place] [address] Care Team Providers Care Light Coil Winder Name Role Phone Jose Mendoza MD Primary Care Provider [phone] Reason for Visit * Auth/Cert (Routine) Specialty Diagnoses / Procedures Referred By Contac t Referred To Contact Diagnoses Malignant neoplasm of colon, unspecified part of colon (CMS/HCC) Malignant neoplasm of colon, unspecified part of colon (CMS/HCC) [C18.9] Procedures MD LAP,SURG,COLECTOMY,W/REMVL TERM ILEUM lap right, possible ileostomy Mata Smalls MD [address] [address] Phone: tel: fax: [facility] [address] [place] [address] Phone: tel: Referral ID Status Reason Start Date Expiration Date Visits Re quested Visits Authorized [id number] 1 1 Encounter Details Date Type Department Care Team (Late st Contact Info) Description 07/10/2024 1:15 PM EDT - 07/10/2024 4:35 PM EDT Surgery [facility] [address] [place] [address] Mata Smalls MD [address] [address] laparoscopic right colectomy [45955 (CPT )] Surgery Details Date/Time Status Location OR Service Patient Class Case Class Case Type Trauma Case? 07/10/2024 1:15 PM Posted [facility] 10 Colorectal Surgery Admit E-Electiv e Panel 1 Procedure LRB Anes Op Region Wound Class Comments laparoscopic right colectomy N/A General Class II/ Clean Contaminated Surgeon Surgeon Role Service Panel Moses Duran MD 1 Mata Smalls MD Primary Colorectal 1 Cony Wall MD Resident - Assisting 1 documented in this encounter Social History Tobacco [...] money to buy more. Never true 07/12/19 25 Within the past 12 months, t he [...] any time in the past 12 m [facility] [place], were you homeless or living in a longterm (including now)? No 07/11/2024 Utilities Answer Date Recorded In the past 12 months has e electric, gas, oil, or water company threatened to shut off services in your home? No 07/11/2024 Comments No Sex and Gender Information Value Date Recorded Sex Assigned at Not on file Legal Sex Female 8:12 PM EDT Gender Identity Not on file Sexual Orientation Not on file documented as of this encounter Last Filed Vital Signs Vital Sign Reading Time Taken Comments Blood Pressure 157/67 07/10/2024 12:47 PM EDT Pulse 69 07/10/2024 12:47 PM EDT Temperature 36.7 C (98.1 F) 07/10/2024 12:47 PM EDT Respiratory Rate 17 07/10/2024 12:47 PM EDT Oxygen Saturation 95% 07/10/2024 12:47 PM EDT Inhaled Oxygen Concentration - - Weight - - Height - - Body Mass Index - - documented in this encounter Functional Status * Calculated C-SSRS Risk Score (Lifetime/Recent) Answer Date of Assessment Author No Risk Indicated 07/10/2024 12:47 PM EDT Mercedez Burkett RN * Question Answer Date of Assessment Author 1. Wish to be (Past 1 Month) No 07/10/2024 12:47 PM EDT Shalini Bowman RN 2. Non-Specific Active Suicidal Thoughts (Past 1 Month) No 07/10/2024 12:47 PM EDT Shalini Bowman RN 6. Suicidal Behavior (Lifetime) No 07/10/2024 12:47 PM EDT Shalini Bowman, RN documented as of this encounter Discharge Instructions [...] you still have pain, take your home Hermitage. You will also be discharged on a [...] with an appointment time. Questions: Call the [facility] at [phone] during business hours on weekdays or call [facility]'s after hours at [phone] to speak with a resident fiction writer for Colorectal surgery after 5pm or on [...] 1 tablet by mouth daily. HYDROcodone-acetamin ophen (Hermitage) 7.5-325 MG tablet Take 1 tablet by [...] encounter Miscellaneous Notes * Thalia Murcia - Nona Wiseman RN - 07/15/2024 3:42 PM EDT Images from the original note were not included. [id number] Rivaroxaban Brand Name(s): Xarelto?? IMPORTANT WARNING: If [...] including anticoagulants (blood thinners) such as warfarin (Jantoven), heparin, or other medications to treat or [...] doctor or pharmacist will give you the application development project manager's patient information sheet (Medication Guide) when you begin treatment with rivaroxaban and each time you refill your prescription. Read the information carefully and ask your doctor or pharmacist if you have any questions. You can also visit the Food and Drug Administration (FDA) website (https://www.fda.gov/downloads/Drugs/DrugSafety/YLC580791.pdf) or the application development project manager's website to obtain the Medication Guide. WHY [...] months of anticoagulation (blood thinner) treatment. When rivar oxaban is used to prevent a stroke in [...] what herbal products you are taking, especially Cortland's wort. ?? tell your doctor if you [...] to the Food and Drug Administration's (FDA) MedRent Heretch Adverse Event Reporting program online (https://www.fda.gov/Safety/MedWatch) or [...] and out of their sight and reach. https://www.BuyRentKenya.com.org Unneeded medications should be disposed of in [...] be awakened, immediately call emergency services at 851. Symptoms of overdose may include the following: [...] of all of the prescription and nonprescription (hcda-xlf-byrijvr) medicines you are taking, as well as [...] or pharmacist about specific clinical use. The [place] [employer]. represents that the information provided hereunder was formulated with a reasonable standard of care, and in conformity with professional standards in the field. The [employer]. makes no representations or warranties, express or implied, including, but not limited to, any implied warranty of merchantability and/or fitness for a particular purpose, with respect to such information and specifically disclaims all such warranties. Users are advised that decisions regarding drug therapy are complex medical decisions requiring the independent, informed decision of an appropriate health home care aide, and the information is provided for informational purposes only. The entire monograph for a drug should be reviewed for a thorough understanding of the drug's actions, uses and side effects. The [place] [employer] does not endorse or recommend the use of any drug.The information is not a substitute for medical care. AHFS?? Patient Medication Information?. ?? Copyright, 2023. The [employer]-System Pharmacists??, [address], [address], [place], [place]. All Rights Reserved. Duplication for commercial use must be authorized by [facility]. Selected Revisions: June 06, 2022. AHFS?? Patient Medication Information?. ?? Copyright, 2024 * Thalia RickettsMADALYN - Nona Wiseman RN - 07/15/2024 3:42 PM EDT Images from the original note were not included. 45550 Washing Your Hands Qdza-io-Btwb Last Reviewed Date: 2022 00:00:00 ?? [id number] [employer]. All rights reserved. This information is not intended as a substitute for professional medical care. Always follow your healthcare professional's instructions. * Thalia Murcia - Nona Wiseman RN - 07/15/2024 3:41 PM EDT Images from the original note were not included. 59658 Preventing a Surgical Site Infection A risk [...] of infection. ?? Controlled body temperature. A blgin-lgkj-dsuwxz temperature during or after surgery prevents oxygen [...] and water or with an alcohol-based hand barbering instructor before and after caring for you. Don?t [...] away. Last Reviewed Date: 2024 00:00:00 ?? [id number] [employer]. All rights reserved. This information is not [...] stretch the tissues in your belly. * Nona Galvan RN - 07/15/2024 3:41 PM EDT Images from the original note were not included. 55820 Colorectal Surgery: Recovering in the Hospital and [...] site. Last Reviewed Date: 2024 00:00:00 ?? [id number] [employer]. All rights reserved. This information is not intended as a substitute for professional medical care. Always follow your healthcare professional's instructions. * Thalia Murcia - Nona Wiseman RN - 07/15/2024 3:40 PM EDT Images from the original note were not included. 33142 Having Laparoscopic Colon Surgery You and your [...] as well as aspirin, ibuprofen, and other qzio-vqe-xdabuat medicines. Tell your surgeon about any herbs, [...] You?ll meet with your anesthesiologist or nurse industrial relations specialist to talk about the medicine that helpsyou [...] ?? Less pain ?? Faster recovery ?? [place] hospital stay ?? Quicker return to normal [...] ileus) Last Reviewed Date: 2023 00:00:00 ?? 5573-8661 [employer]. All rights reserved. This information is not [...] PCP name and Address: Jose Mendoza MD [facility] [facility] / [place] [address] Referring provider name and address: No referring provider defined for this encounter. Chief Concern, Brief History of Present Illness, and Hospital Course Gina Tim is a 79 y.o. female with history of heart failure s/p heart catheterization, HTN, arthritis, HLD, and colon mass who presented to [facility] for surgical intervention. They were taken to [...] PT/OT. On the day of discharge the barbara dominiquent's pain was controlled on oral medications, they [...] HYDROcodone-acetaminophen 7.5-325 MG tablet Commonly known as: Hermitage Take 1 tablet by mouth every 6 [...] Your Medications These medications were sent to [facility] - [place], [place] - [address] [facility] [address] acetaminophen 500 MG tablet methocarbamol 500 MG [...] you still have pain, take your home Hermitage. You will also be discharged on a [...] with an appointment time. Questions: Call the [facility] at [phone] during business hours on weekdays or call [facility]'s after hours at [phone] to speak with a resident fiction writer for Colorectal surgery after 5pm or on [...] Doyle MD - 07/15/2024 12:29 PM EDT Gina Tim is a 79 y.o. female with history of heart failure s/p heart catheterization, HTN, arthritis, HLD, and colon mass who presented to [facility] for surgical intervention. They were taken to [...] PT/OT. On the day of discharge the pat ient's pain was controlled on oral medications, they [...] PM EDT Case Management Adult Progress Note Gina Tim 79 y.o. female CSN: [id number] Admission: 07/10/2024 11:10 AM Primary Problem: Malignant [...] orders and information sent via careport to [facility], verified insurance will pay for walker, notified pt's daughter. Walker to be delivered to bs today. Pt does not have any accepting agencies, pt in agreement with outpt PT/OT. Will continue to follow and assist with d/c needs as they arise. Maxine Pompa RN * Progress Notes - Cnosuelo Kumar - 07/14/2024 12:22 PM EDT PHYSICAL THERAPY TREATMENT PATIENT DATA Patient Name Gina Tim Session Date 07/14/2024 Total Treatment Time [...] carts at store/wheelchair for community distances) Mobility [place]oc[place]ontas Independent gait with device (Rollator) History of [...] PT treatment. Pt is anticipating discharge from [facility] tomorrow. Pt agreeable to PT session. I am doing a lot better . I want to get home to my boy (grandson) and dog . It Infrastructure Specialist (if applicable) Not Applicable OBJECTIVE & INTERVENTIONS [...] to activity during session. TRANSFERS Level of [place]as Physical/Non- physical Assist Adaptive Equipment Utilized Sit [...] Posture: Forward head, Rounded shoulders Level of [place]oc[place]as Balance Support Interventions Static Sit Supervision Feet [...] stand x 5 mins. AMBULATION Level of [place]oc[place] Distance Adaptive Equipment Utilized Ambulation (CGA using [...] feel safer using it right now . LICENSED INSURANCE AGENT presence was necessary for: * decreasing patient's [...] issued red theraband: Access Code: [email or web address] URL: [email or web address] Date: 07/14/2024 Prepared by: [facility] Exercises - Seated Hamstring Curls with Resistance [...] weeks PT Goal 2: Pt will demonstrate mxujht-uri-pctsmt transfers with min assist PT Goal 2 Established Date: 07/11/24 PT Goal 2 Time Frame: 2 weeks PT Goal 3: Pt will perform hpk-onrlj-tnc transfers with min assist. PT Goal 3 [...] PM EDT Occupational Therapy Treatment Patient Name: Gina Tim Today's Date: 07/14/2024 OT Discharge Recommendations: [...] Transfer Exam: Sit to stand Level of Pocahontas: Stand-by assist Physical/Nonphysical Assist: Verbal Cues, Minimal cues, Nonverbal cues (demo/gestures) Assistive Device: (Rollator and RW) Transfer Exam: Stand to Sit Level of Pocahontas: Stand-by assist Physical/Nonphysical Assist: Minimal cues, Nonverbal cues (demo/gestures), Verbal Cues Assistive Device: (Rollator and RW) Toilet Transfer Level of Pocahontas: Stand-by assist Physical/Nonphysical Assist: Minimal cues, Verbal [...] the chair with p illows for comfort. material control manager came in during session and talked [...] was given a blue sponge to increase oil tester strength in B hands. Assessment Pt demo [...] 10:21 AM EDT Adult Nutrition Evaluation Note Gina Tim 79 y.o. female CSN: [id number] Room/Bed 121/121A Nutrition evaluation type: assessment Reason for evaluation: [facility] Hospital course: 79 y o F with colon mass, admitted 07/10/24 s/p lap right colectomy. Past medical/ surgical history: Medical History[1], heart failure Surgical History[2] Social history: Social History[3] Additional comments: 07/14: Per notes, tolerating diet Vitals and Basic Assessment: BP: (!) 146/76 Temp: 36.5 ??C (97.7 ??F) Oxygen Therapy: None (Room air) O2 Delivery Method: Nasal cannula Yvrose Coma Scale Score: 15 Patricio Scale Score: 21 Most Recent BM Date: 07/13/24 GI Symptoms: Nausea Edema: Right lower extremity, Left lower extremity Skin: umbilicus lap surgical wound Allergies: NKA Medications: Current Medications[4] Meds were reviewed: Yes Labs: Results from last 7 days Lab Units 07/14/2435807/13/2444507/12/24 0616 WBC 10*3/uL 9.18 10.49* 10.69* HEMOGLOBIN g/dL 10.7* 11.1* 9.7* HEMATOCRIT % 34.7 36.2 32.3* PLATELETS 10*3/uL 245 227 183 Results from last 7 days Lab Units 07/14/2435807/13/2444507/12/24 0547 07/11/24 0614 SODIUM mmol/L 138 138 [...] tablet 500 mg, 500 mg, Oral, q6h, Kyleigh Daigle APRN, DNP, 500 mg at07/14/24 0948 [START ON 07/15/2024] furosemide (Lasix) tablet 20 mg, 20 mg, Oral, Daily, Vangie Nowak MD heparin (porcine) injection 7,500 Units, 7,500 Units, Subcutaneous, q8h, Sylvie Mills MD, 7,500 Units at 07/14/24 0810 HYDROcodone-acetaminophen (Hermitage) 5-325 MG per tablet 7.5 mg of hydrocodone, 7.5 mg of hydrocodone,Oral, q4h PRN, Senior Medical Transcriptionist, Kyleigh T, ROD BUSTER, DNP, 7.5 mg of hydrocodone at 07/14/24 0820 isosorbide mononitrate ER (Imdur) 24 hr tablet 60 mg, 60 mg, Oral, Daily, Senior Medical TranscriptionistKyleigh, ROD BUSTER, DNP, 60 mg at 07/14/24 0810 methocarbamol (Robaxin) tablet 500 mg, 500 mg, Oral, q6h ANTOINE, Vangie Nowak MD, 500 mg at 07/14/24 05 mirabegron ER (Myrbetriq) tablet 50 mg, 50 mg, Oral, Daily, Sylvie Mills MD, 50 mg at 07/14/2411 mupirocin (Bactroban) 2 % ointment 1 Application, 1 Application, Each Nostril, BID, Mata Smalls MD, 1 Application at 07/14/24810 nebivolol (Bystolic) tablet 5 mg, 5 mg, Oral, Daily, Vangie Nowak MD, 5 mg at 07/13/242032 ondansetron ODT (Zofran-ODT) disintegrating tablet 4 mg, 4 mg, Oral, q6h PRN, 4 mg at 07/14/24 0404OR ondansetron (Zofran) injection 4 mg, 4 mg, Intravenous, q6h PRN, 4 mg at 07/13/24 0440 OR ondansetron (Zofran) 4 MG/5ML solution 4 mg, 4 mg, Oral, q6h PRN, Vagnie Nowak MD pantoprazole (Protonix) EC tablet 40 mg, 40 mg, Oral, BID, Sylvie Mills MD, 40 mg at 07/14/24 0810 pravastatin (Pravachol) tablet 80 mg, 80 mg, Oral, Nightly, Vangie Nowak MD, 80 mg at 07/13/242032 pregabalin (Lyrica) capsule 75 mg, 75 mg, Oral, BID, Vangie Nowak MD, 75 mg at 07/14/24 0810 * Progress Notes - Sylvie Mills MD - 07/14/2024 8:52 AM EDT Images from the original note were not included. [facility] Department of Surgery Division of Colon & Rectal Surgery Surgery Progress Note 07/14/24 Gina Tim Full Code Subjective Subjective: HPI Gina Tim is a 79 y.o. female with a PMH heart failure s/p heart catheterization, HTN, arthritis, and HLD that presents for evaluation of colon mass found on Colonoscopy 06/[address] Cohen. now s/p laparoscopic, hand assisted, right colectomy on 07/10/24. Gina Tim is a 79 y.o. female with [...] by Drain (mL) 07/12/24 0700 - 07/12/24 18507/12/24 1900 - 07/13/24 0659 07/13/24 0700 - 07/13/24 18507/13/24 1900 - 07/14/24 0659 07/14/24 0700 - [...] Lab Units 07/14/24 03507/13/24 0446 07/12/24 0547 CREATININE mg/dL 1.34* 1.15* 1.18* Lactate No lab exists for component: LACTTEVEN Radiographic Interpretation: No relevant imaging to review. Medications reviewed. Vital signs reviewed. Labs reviewed. 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 female with a PMH heart failure s/p heart catheterization, HTN, arthritis, and HLD that presents for evaluation of colon mass found on Colonoscopy 06/[address] Cohen now s/p laparoscopic, hand assisted, right colectomy on 07/10/24. Gina Tim is a 79 y.o. female with [...] with any additional questions or concerns via [employer] orpage [phone]. * Progress Notes - Sylvie Mills MD - 07/13/2024 7:46 AM EDT Images from the original note were not included. [facility] Department of Surgery Division of Colon & Rectal Surgery Surgery Progress Note 07/13/24 Gina Tim Full Code Subjective Subjective: HPI Gina Tim is a 79 y.o. female with a PMH heart failure s/p heart catheterization, HTN, arthritis, and HLD that presents for evaluation of colon mass found on Colonoscopy 06/[address] Cohen. now s/p laparoscopic, hand assisted, right colectomy on 07/10/24. Gina Tim is a 79 y.o. 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 female with a H heart failure s/p heart catheterization, HTN, arthritis, and HLD that presents for evaluation of colon mass found on Colonoscopy 06/[address] Cohen now s/p laparoscopic, hand assisted, right colectomy on 07/10/24. Gina Tim is a 79 y.o. female with [...] AR vanilla - [facility] - on home narcotic regimen - subcutaneous heparin Edited by: Sylvie Mills MD at 07/11/2024 1218 - Discharge teaching and planning Dispo: Continue Current Level of Care Cosigned by Mata Smalls MD at 07/13/2024 3:19 PM EDT * Progress Notes - Maxine Pompa RN - 07/12/2024 3:23 PM EDT Case Management Adult Progress Note Gina Tim 79 y.o. female [facility]: [id number] Admission: 07/10/2024 11:10 AM Primary Problem: Malignant [...] PM EDT Acute Pain Service Follow-Up Evaluation Gina Tim is a 79 y.o. female Visit [...] with any additional questions or concerns via [employer] orpage [phone]. * Query Clarification Note - Mata Smalls [...] AM EDT Acute Pain Service Follow-Up Evaluation Gina Tim is a 79 y.o. female Visit Type: Routine Current Pain Treatment: Epidural Dilaudid 10 mcg/ml & Bupivacaine 1.25 mg/ml; 2/1/10; T8-T9 12 cm @ skin Laparoscopic colectomy with possible ileostomy Follow-Up: Follow-up reason: APS rounds Pain Rating (0-10): 5 Comfort/ Acceptable Pain Level: 3-4 Epidural capped @ 08:44. Follow-Up: Follow-Up: Acute Pain service will continue to follow. Acute Pain Service Comments: Pain Service comments: Plan to discontinue when appropriate. Please Contact Acute Pain Service with any additional questions or concerns via [employer] orRedKix [phone]. * Progress Notes - Sylvie Mills MD - 07/12/2024 8:07 AM EDT Images from the original note were not included. [facility] Department of Surgery Division of Colon & Rectal Surgery Surgery Progress Note 07/12/24 Gina Tim Full Code Subjective Subjective: HPI Gina Tim is a 79 y.o. female with a H heart failure s/p heart catheterization, HTN, arthritis, and HLD that presents for evaluation of colon mass found on Colonoscopy 06/[address] Cohen. now s/p laparoscopic, hand assisted, right colectomy on 07/10/24. Gina Tim is a 79 y.o. 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 female with a PMH heart failure s/p heart catheterization, HTN, arthritis, and HLD that presents for evaluation of colon mass found on Colonoscopy 06/[address] Cohen. now s/p laparoscopic, hand assisted, right colectomy on 07/10/24. Gina Tim is a 79 y.o. female with [...] Service Comments: Pain Service comments: Will continue COMMODITY LOAN CLERK and/ or infusion until primary service decides it is appropriate to discontinue COMMODITY LOAN CLERK and/ or infusion. * Progress Notes - Maxine Pompa RN - 07/11/2024 2:45 PM EDT Case Management Adult Initial Progress Note Gina Tim 79 y.o. female CSN: [id number] Admission: 07/10/2024 11:10 AM Primary Problem: Malignant neoplasm of colon Pricing Clerk reviewed chart and spoke with patient at to complete this Initial Case Management Assessment. PCP: Jose Mendoza MD Emergency Contact: Extended Emergency Contact Information Primary Emergency Contact: REYES TIM Mobile Relation: Spouse Preferred language: Cambodian Secondary Emergency Contact: BRIGETTE MILLER Mobile Relation: Daughter Preferred language: Cambodian Insurance: Primary Visit Coverage Payer Plan Sponsor Code Group Number Group Name HUMANA MEDICARE HUMANA MEDICARE [id number] Primary Visit Coverage Subscriber Subscriber ID Subscriber Name Subscriber SSN Subscriber Address [id number] [employer] [id number] [place] [address] Secondary Visit Coverage Payer Plan Sponsor Code Group Number Group Name [place] TRAD[place] Secondary Visit Coverage Subscriber Subscriber ID Subscriber Name Subscriber SSN Subscriber Address [id number] GINA TIM [id number] [place] [address] Patient information: Primary Caregiver: Self Accompanied by/Relationship: self Support System: Immediate family Daily Living Activities: Functional Status: Independent Living Arrangements: Spouse/Significant other, Children Type of Residence: Other (Comment) (mobile home) [address] [facility] [address] Current DME: Equipment Currently Used at Home: walker, rollator, wheelchair, manual, shower chair Housing Circumstances-Z Codes: Housing Circumstances (select all that apply): None Applicable Anticipated Discharge Date: unknown Patient's Discharge Goal: home Assistance Available at Discharge: Discharge Transport: daughter Follow Up Transport: Home Health / Home Infusion / Outpatient Dialysis Services: none Living Will/Advance Directive/Power of Tannery Worker /Guardian: Have you reviewed your Advance Directive [...] Use: Not At Risk (03/21/2024) Received from [facility] Frequency of Alcohol Consumption: Never Average [...] verified information. Pt has a PCP, Jose Mendoza, with the last visit approx 3 months ago. Pt lives with her and 9 yo grandson, her is able to provide assistance at home if needed. Pt has [employer] Medicare and [place] Medicaid Tr aditional as her insurance. Transportation home will be provided by her daughter. Pt has listed Reyes marie, as her emergency contact, phone # [phone], her daughter, Brigette Miller, phone # [phone], and her other daughter, Deann Salvador, phone # [phone]. [facility]. Pt currently has a rollator, w/c, and shower chair that she uses. She is not receiving HH services. Will continue to follow and assist with d/c needs as they arise. Maxine Pompa RN * Progress Notes - Sylvie Mills MD - 07/11/2024 12:18 PM EDT Images from the original note were not included. [facility] Department of Surgery Division of Colon & Rectal Surgery Surgery Progress Note 07/11/24 Gina Tim Full Code Subjective Subjective: HPI Gina Tim is a 79 y.o. female with a PMH heart failure s/p heart catheterization, HTN, arthritis, and HLD that presents for evaluation of colon mass found on Colonoscopy 06/[address] Cohen. now s/p laparoscopic, hand assisted, right colectomy on 07/10/24. Gina Tim is a 79 y.o. 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 female with a PMH heart failure s/p heart catheterization, HTN, arthritis, and HLD that presents for evaluation of colon mass found on Colonoscopy 06/[address] Cohen. now s/p laparoscopic, hand assisted, right colectomy on 07/10/24. Gina Tim is a 79 y.o. female with [...] 12:47 PM EDT * Progress Notes - Lai Atkins MD - 07/11/2024 11:16 AM EDT Acute Pain Service Pain management goal: 2/10 Pain scale (0-10): 1/10 Side Effects Nausea/Vomiting: no Pruritus: no Confusion: no Sedation: no Numbness/Tingling: no Catheter inspected per protocol: yes Outcomes Able to take oral medications: taking ice chips. Has ambulated: up in chair. Assessment & Plan in the Next 24 hours Assessment: doing well Plan: continue COMMODITY LOAN CLERK at current rate Plan explained/all questions answered/plan in agreement with: Patient Patient seen and examined today on rounds with AP Nurse. Epidural analgesics infusing for the management of postop pain. Analgesic medication rate and use reviewed. Patient doing well and quite comfortable. Patient reports the epidural COMMODITY LOAN CLERK doses are effective. No significant adverse effects noted. My plan is to continue the epidural infusion basal and COMMODITY LOAN CLERK settings. Will follow.. Reason for Block: post-op pain management * Progress Notes - Jaci Rivero - 07/11/2024 10:22 AM EDT Physical Therapy Evaluation Patient Name: Gina Tim Today's Date: 07/11/2024 PT Discharge Recommendations: Subacute rehab Equipment Recommended: Defer to facility History Gina Tim is 79 y.o. female admitted 07/10/2024 [...] therapist. Participants in Care Family/Caregiver Present: No It Infrastructure Specialist: Not Applicable Presentation Oxygen Therapy: Supplemental oxygen [...] carts at store/wheelchair for community distances) Mobility [place]: Independent gait with device (Rollator) History of [...] Mobility Bed Mobility Exam: Rolling/Turning Level of [place]: Moderate assist (50% patient effort) Physical/Nonphysical Assist: Set-up required, Moderate cues, Verbal Cues, Additional assist utilized for safety Bed Mobility Exam: Scooting/Bridging Level of [place]: Moderate assist (50% patient's effort) Physical/Nonphysical Assist: Set-up required, Additional assist utilized for safety, Verbal Cues, Moderate cues Bed Mobility Exam: Supine to Sit Level of [place]: Moderate assist (50% patient's effort) Physical/Nonphysical Assist: Set-up required, Moderate cues, Verbal Cues, Additional assist utilized for safety Transfers Transfer Exam: Sit to stand Level of [place]: Moderate assist (50% patient's effort) Physical/Nonphysical Assist: Set-up required, Moderate cues, Verbal Cues, Additional assist utilized for safety Assistive Device: Walker, rolling Transfer Exam: Stand to Sit Level of [place]: Moderate assist (50% patient's effort) Physical/Nonphysical Assist: Set-up required, Verbal Cues, Moderate cues, Additional assist utilized for safety Assistive Device: Walker, rolling Transfer Exam: Bed to Chair/Chair to Bed Level of [place]: Moderate assist (50% patient's effort) Physical/Nonphysical Assist: [...] Pt participated in bed mobility, supine-sit and txi-afrav-qlt transfers. She was able to progress to [...] chair with multiple pillow support. Standardized Assessments [facility] 6-Clicks Mobility Assessment Difficulty patient has turning [...] climbing 3-5 steps with a railing?: Unable [facility] 6-Clicks Mobility Assessment Total : 12 Assessment [...] Subacute Rehab is recommended at discharge from [facility]. Impairments: Decreased endurance, ventilation, and/or gas exchange, [...] weeks PT Goal 2: Pt will demonstrate ckdzsp-okh-etjxwk transfers with min assist 2 weeks PT Goal 3: Pt will perform dpz-wgcle-bxi transfers with min assist. 2 weeks PT Goal 4: Pt will ambulate 30 ft or more using rolling walker with min assist. 2 weeks PT Goal 5: Pt/caregiver will verbalize and demonstrate understanding of post-op precautions and a basic HEP. 2 weeks Written by Jaci Rivero on 07/11/24 at 1:01 PM. * Progress Notes - Milla Rosado W - 07/11/2024 10:21 AM EDT Occupational Therapy Evaluation Patient Name: Gina Tim Today's Date: 07/11/2024 OT Discharge Recommendations: Subacute rehab Equipment Recommended: Defer to facility, Rolling walker History Gina Tim is 79 y.o. female admitted 07/10/2024 [...] evaluation/session. Participants in Care Family/Caregiver Present: No It Infrastructure Specialist: Not Applicable Presentation Oxygen Therapy: Supplemental oxygen [...] carts at store/wheelchair for community distances) Mobility [place]: Independent gait with device (Rollator) History of [...] Mobility Bed Mobility Exam: Rolling/Turning Level of [place]: Moderate assist (50% patient effort) (to the right) Physical/Nonphysical Assist: Set-up required, Verbal Cues, Nonverbal cues (demo/gestures), Moderatecues, Additional assist utilized for safety Assistive Device: Bed rails, Other Bed Mobility Exam: Scooting/Bridging Level of [place]: Moderate assist (50% patient's effort) (anteriorly to EOB) Physical/Nonphysical Assist: Set-up required, Verbal Cues, Nonverbal cues (demo/gestures), Moderatecues, Additional assist utilized for safety Assistive Device: Other (draw sheet) Bed Mobility Exam: Supine to Sit Level of [place]: Moderate assist (50% patient's effort) (to the right) Physical/Nonphysical Assist: Set-up required, Verbal Cues, Nonverbal cues (demo/gestures), Moderatecues, HOB elevated, Additional assist utilized for safety (increased time) Assistive Device: Bed rails, Other (draw sheet) Transfers Transfer Exam: Sit to stand Level of [place]: Moderate assist (50% patient's effort) Physical/Nonphysical Assist: Set-up required, Verbal Cues, Nonverbal cues (demo/gestures), Moderatecues, Additional assist utilized for safety Assistive Device: Walker, rolling Transfer Exam: Stand to Sit Level of [place]: Moderate assist (50% patient's effort) Physical/Nonphysical Assist: Set-up required, Verbal Cues, Nonverbal cues (demo/gestures), Moderatecues, Additional assist utilized for safety Assistive Device: Walker, rolling Transfer Exam: Bed to Chair/Chair to Bed Level of [place]: Moderate assist (50% patient's effort) Physical/Nonphysical Assist: [...] the bathroom or enter/exit home. Standardized Assessments [facility] 6-Click Daily Activities Help from Other: Don/Doff Regular Lower Body Clothings: Total Help From Other: Bathing: A lot Help From Other: Toileting: A lot Help From Other: Don/Doff Upper Body Clothings: Little Help From Other: Grooming: Little Help From Other: Eating Meals: Little [facility] 6 Click - Daily Activities Score: 14 [...] AM EDT Acute Pain Service Follow-Up Evaluation Gina Tim is a 79 y.o. female Follow-Up: [...] (PF) 1.25 mg/mL in 100 mL (PF) COMMODITY LOAN CLERK no dose Epidural Continuous hydromorphone 10 mcg/mL [...] with any additional questions or concerns via [employer] orpage [id number]. * Care Plan - Basilia Coyne RN - 07/11/2024 1:45 AM EDT Problem: Adult Inpatient Plan of Care Goal: Plan of Care Review Outcome: Ongoing, Progressing Goal: Patient-Specific Goal (Individualized) Outcome: Ongoing, Progressing Flowsheets (Taken 07/10/20241809 by Sanchez, Regla A, RN) Patient/Family-Specific Goals (Include Timeframe): pt will [...] from the original note were not included. [facility] Department of Surgery Division [...] nursing staff. I have notified senior resident/attending fiction writer with any issues or concerns. * Consults - Pati Lea RN - 07/10/2024 9:30 PM EDT Acute Pain Service Follow-Up Evaluation Gina Tim is a 79 y.o. female Follow-Up: [...] (PF) 1.25 mg/mL in 100 mL (PF) COMMODITY LOAN CLERK no dose Epidural Continuous hydromorphone 10 mcg/mL [...] with any additional questions or concerns via [employer]. * Anesthesia PACU Signout - Roni Duval MD - 07/10/2024 7:04 PM EDT Patient: Gina Tim Anesthesia Type: general Vitals Value Taken [...] 6:42 PM EDT Acute Pain Service Hookup Gina Tim is a 79 y.o. female Visit [...] (PF) 1.25 mg/mL in 100 mL (PF) COMMODITY LOAN CLERK no dose Epidural Continuous hydromorphone 10 mcg/mL [...] @ skin Laparoscopic colectomy with possible ileostomy COMMODITY LOAN CLERK Education: Patient/ family COMMODITY LOAN CLERK education done: Yes Pre-hook-up Assessment: Pain Rating [...] note were not included. Device Interrogation Overview Building Construction Inspector: [employer] Device mode: AAIR <--> DDR Lower rate: [...] Smalls MD - 07/10/2024 4:16 PM EDT Psychiatric Colon & Rectal Surgery Operative Report DATE [...] SURGICAL PATHOLOGY EXAM Mata Smalls MD 07/10/2024 [id number] FINDINGS: bulky mesentery and colon due to body habitus BRIEF HISTORY: Gina Tim is a 79 y.o. female with [...] colon using an Endo-NABILA stapler. An end-to-end, plie-lv-dfjy anastomosis was created using multiple firings of [...] 07/10/2024 4:16 PM EDT Date: 07/10/24 Location: [place] [facility] Name: Gina Tim, : 1945, Diagnoses: Pre-op Diagnosis Malignant neoplasm of colon, unspecified part of colon (CMS/HCC) Post-op Diagnosis Malignant neoplasm of colon, unspecified part of colon (CMS/HCC) Procedure(s): Laparoscopic, hand assisted, right colectomy Attending Surgeon(s): * Mata Smalls - Primary Fingerprint Clerk(s): * Moses Duran MD - Resident - [...] Smalls MD - 06/20/2024 1:15 PM EDT Psychiatric Colon & Rectal Surgery 06/20/2024 Chief Complaint: Malignant neoplasm of ascending colon (CMS/HCC) [C18.2] HPI: Gina Tim is a 79 y.o. 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 I discussed the case with the medical/RETAIL AREA MANAGER/PA student and agree with the findings and [...] Description 08/15/2024 3:00 PM EDT Office Visit [facility] Multidisciplinary Oncology Clinic [address] [place] [address] Mata Smalls MD [address] [place] [address] Scheduled Referrals Name Type Priority Associated Diagnoses Order Schedule Discharge Ambulatory referral to NON [facility] Outpatient Referral Routine Malignant neoplasm of colon, [...] until 01/14/2026 Discharge Ambulatory referral to NON Physical Therapy Outpatient Referral Routine Malignant neoplasm of ascending colon (CMS/HCC) 1 Occurrences starting 07/15/2024 until 01/15/2026 Discharge Ambulatory referral to NON Occupational Therapy [...] of colon, unspecified part of colon (CMS/HCC) MD LAP,SURG,COLECTOMY,W/R EMVL TERM ILEUM 07/10/2024 3:06 PM [...] Vasquez DO on 07/15/2024 11:15 AM us Mata Smalls MD IMG XR PROCEDURES Final Result * Phosphorus (07/15/2024 3:13 AM EDT) Phosphorus, Plasma 3.1 2.5 - 4.5 mg/dL 07/15/2024 6:48 AM EDT [facility] Blood Venous blood specimen / Unknown Venipuncture / Unknown 07/15/2024 3:13 AM EDT 07/15/2024 3:35 AM EDT us Mata Smalls MD LAB BLOOD ORDERABLES Final Res ult Performing Organization Address [facility]/ZIP Co de Phone Number [facility] [address] [place] [address] * Magnesium (07/15/2024 3:13 AM EDT) Magnesium, Plasma 2.1 1.9 - 2.4 mg/dL 07/15/2024 6:48 AM EDT [facility] Blood Venous blood specimen / Unknown Venipuncture / Unknown 07/15/2024 3:13 AM EDT 07/15/2024 3:35 AM EDT us Mata Smalls MD LAB BLOOD ORDERABLES Final Res ult Performing Organization Address City/[facility]/ZIP Co de Phone Number [facility] [address] [place] [address] * (ABNORMAL) Basic metabolic panel (07/15/2024 3:13 AM EDT) Glucose, Plasma 100(H) 74 - 99 mg/dL 07/15/2024 4:11 AM EDT [facility] BUN, Plasma 25(H) 8 - 23 mg/dL 07/15/2024 4:11 AM EDT [facility] Creatinine, Plasma 1.20(H) 0.60 - 1.10 mg/dL 07/15/2024 4:11 AM EDT [facility] BUN/Creatinine Ratio 21 07/15/2024 4:11 AM EDT [facility] Sodium, Plasma 141 136 - 145 mmol/L 07/15/2024 4:11 AM EDT [facility] Potassium, Plasma 4.2 3.6 - 4.9 mmol/L 07/15/2024 4:11 AM EDT [facility] Chloride, Plasma 108(H) 97 - 107 mmol/L 07/15/2024 4:11 AM EDT [facility] CO2, Plasma 22 22 - 29 mmol/L 07/15/2024 4:11 AM EDT [facility] Anion Gap 11 6 - 16 mmol/L 07/15/2024 4:11 AM EDT [facility] Total Calcium, Plasma 8.6(L) 8.9 - 10.2 mg/dL 07/15/2024 4:11 AM EDT [facility] eGFRcr 45.6 mL/min/1.7 3m*2 07/15/2024 4:11 AM EDT [facility] Comment:Reported eGFRcr in m L/min/1.73m2 is based the CKD-EPI 2020 equation that does not use a race coefficient. Blood Venous blood specimen / Unknown Venipuncture / Unknown 07/15/2024 3:13 AM EDT 07/15/2024 3:35 AM EDT us Mata Smalls MD LAB BLOOD ORDERABLES Final Res ult [facility] [address] [place] [address] * (ABNORMAL) CBC (07/15/2024 3:13 AM EDT) WBC Count 7.77 3.70 - 10.30 10*3/uL LAB HEMATOLOGY METHOD 07/15/2024 3:45 AM EDT [facility] RBC Count 3.54(L) 3.90 - 5.20 10*6/uL LAB HEMATOLOGY METHOD 07/15/2024 3:45 AM EDT [facility] HGB 9.6(L) 11.2 - 15.7 g/dL LAB HEMATOLOGY METHOD 07/15/2024 3:45 AM EDT [facility] HCT 30.0(L) 34.0 - 45.0 % LAB HEMATOLOGY METHOD 07/15/2024 3:45 AM EDT [facility] Platelet Count 255 155 - 369 10*3/uL LAB HEMATOLOGY METHOD 07/15/2024 3:45 AM EDT [facility] MCV 85 79 - 98 fL LAB HEMATOLOGY METHOD 07/15/2024 3:45 AM EDT [facility] MCH 27.1 26.0 - 32.0 pg LAB HEMATOLOGY METHOD 07/15/2024 3:45 AM EDT [facility] MCHC 32.0 30.7 - 35.5 g/dL LAB HEMATOLOGY METHOD 07/15/2024 3:45 AM EDT [facility] RDW 17.4(H) 11.5 - 14.5 % LAB HEMATOLOGY METHOD 07/15/2024 3:45 AM EDT [facility] MPV 12.3 8.8 - 12.5 fL LAB HEMATOLOGY METHOD 07/15/2024 3:45 AM EDT [facility] nRBC 0.0 <=0.0 per 100 WBCs LAB HEMATOLOGY METHOD 07/15/2024 3:45 AM EDT [facility] Blood Venous blood specimen / Unknown Venipuncture / Unknown 07/15/2024 3:13 AM EDT 07/15/2024 3:34 AM EDT Mata Smalls MD LAB BLOOD ORDERABLES Final Res ult [facility] [address] [place] [address] * (ABNORMAL) C-reactive protein (07/15/2024 3:13 AM EDT) CRP, Plasma 226.7(H) <=8.0 mg/L 07/15/2024 4:11 AM EDT [facility] Blood Venous blood specimen / Unknown Venipuncture / Unknown 07/15/2024 3:13 AM EDT 07/15/2024 3:35 AM EDT Narrative [facility] - 07/15/2024 4:11 AM EDT This CRP test is appropriate for assessment of infection, systemic inflammation and/or tissue injury. To assess cardiovascular disease risk order high sensitivity CRP (CRPH). Maat Smalls MD LAB BLOOD ORDERABLES Final Res ult Performing Organization Address [facility] Co de Phone Number [facility] [address] [place] [address] * (ABNORMAL) Procalcitonin, Plasma (07/15/2024 3:13 AM EDT) Procalcitonin, Plasma 0.62(H) <0.09 ng/mL 07/15/2024 4:11 AM EDT [facility] Blood Venous blood specimen / Unknown Venipuncture / Unknown 07/15/2024 3:13 AM EDT 07/15/2024 3:35 AM EDT Narrative [facility] - 07/15/2024 4:11 AM EDT Procalcitonin [...] predict 28 day mortality risk. Please consult [email or web address] for more information. Test performed at [facility]. Mata Smalls MD LAB BLOOD ORDERABLES Final Res ult Performing Organization Address [facility]/ZIP Co de Phone Number [facility] [address] [place] [address] * (ABNORMAL) Basic metabolic panel (07/14/2024 3:59 AM EDT) Glucose, Plasma 97 74 - 99 mg/dL 07/14/2024 4:50 AM EDT [facility] BUN, Plasma 28(H) 8 - 23 mg/dL 07/14/2024 4:50 AM EDT [facility] Creatinine, Plasma 1.34(H) 0.60 - 1.10 mg/dL 07/14/2024 4:50 AM EDT [facility] BUN/Creatinine Ratio 21 07/14/2024 4:50 AM EDT [facility] Sodium, Plasma 138 136 - 145 mmol/L 07/14/2024 4:50 AM EDT [facility] Potassium, Plasma 4.3 3.6 - 4.9 mmol/L 07/14/2024 4:50 AM EDT [facility] Chloride, Plasma 105 97 - 107 mmol/L 07/14/2024 4:50 AM EDT [facility] CO2, Plasma 22 22 - 29 mmol/L 07/14/2024 4:50 AM EDT [facility] Anion Gap 11 6 - 16 mmol/L 07/14/2024 4:50 AM EDT [facility] Total Calcium, Plasma 9.1 8.9 - 10.2 mg/dL 07/14/2024 4:50 AM EDT [facility] eGFRcr 39.9 mL/min/1.7 3m*2 07/14/2024 4:50 AM EDT [facility] Comment:Reported eGFRcr in m L/min/1.73m2 is based the CKD-EPI 2020 equation that does not use a race coefficient. Blood Venous blood specimen / Unknown Venipuncture / Unknown 07/14/2024 3:59 AM EDT 07/14/2024 4:20 AM EDT us Mata Smalls MD LAB BLOOD ORDERABLES Final Res ult [facility] [address] [place] [address] * (ABNORMAL) CBC (07/14/2024 3:59 AM EDT) WBC Count 9.18 3.70 - 10.30 10*3/uL LAB HEMATOLOGY METHOD 07/14/2024 4:33 AM EDT [facility] RBC Count 4.02 3.90 - 5.20 10*6/uL LAB HEMATOLOGY METHOD 07/14/2024 4:33 AM EDT [facility] HGB 10.7(L) 11.2 - 15.7 g/dL LAB HEMATOLOGY METHOD 07/14/2024 4:33 AM EDT [facility] HCT 34.7 34.0 - 45.0 % LAB HEMATOLOGY METHOD 07/14/2024 4:33 AM EDT [facility] Platelet Count 245 155 - 369 10*3/uL LAB HEMATOLOGY METHOD 07/14/2024 4:33 AM EDT [facility] MCV 86 79 - 98 fL LAB HEMATOLOGY METHOD 07/14/2024 4:33 AM EDT [facility] MCH 26.6 26.0 - 32.0 pg LAB HEMATOLOGY METHOD 07/14/2024 4:33 AM EDT [facility] MCHC 30.8 30.7 - 35.5 g/dL LAB HEMATOLOGY METHOD 07/14/2024 4:33 AM EDT [facility] RDW 17.4(H) 11.5 - 14.5 % LAB HEMATOLOGY METHOD 07/14/2024 4:33 AM EDT [facility] MPV 12.6(H) 8.8 - 12.5 fL LAB HEMATOLOGY METHOD 07/14/2024 4:33 AM EDT [facility] nRBC 0.0 <=0.0 per 100 WBCs LAB HEMATOLOGY METHOD 07/14/2024 4:33 AM EDT [facility] Blood Venous blood specimen / Unknown Venipuncture / Unknown 07/14/2024 3:59 AM EDT 07/14/2024 4:27 AM EDT us Mata Smalls MD LAB BLOOD ORDERABLES Final Res ult [facility] [address] [place] [address] * (ABNORMAL) C-reactive protein (07/13/2024 4:46 AM EDT) CRP, Plasma 234.8(H) <=8.0 mg/L 07/13/2024 7:40 AM EDT [facility] Blood Venous blood specimen / Unknown Venipuncture / Unknown 07/13/2024 4:46 AM EDT 07/13/2024 4:54 AM EDT Narrative [facility] - 07/13/2024 7:40 AM EDT This CRP test is appropriate for assessment of infection, systemic inflammation and/or tissue injury. To assess cardiovascular disease risk order high sensitivity CRP (CRPH). us Mata Smalls MD LAB BLOOD ORDERABLES Final Res ult [facility] [address] [place] [address] * (ABNORMAL) Basic metabolic panel (07/13/2024 4:46 AM EDT) Glucose, Plasma 90 74 - 99 mg/dL 07/13/2024 6:07 AM EDT [facility] BUN, Plasma 26(H) 8 - 23 mg/dL 07/13/2024 6:07 AM EDT [facility] Creatinine, Plasma 1.15(H) 0.60 - 1.10 mg/dL 07/13/2024 6:07 AM EDT [facility] BUN/Creatinine Ratio 23 07/13/2024 6:07 AM EDT [facility] Sodium, Plasma 138 136 - 145 mmol/L 07/13/2024 6:07 AM EDT [facility] Potassium, Plasma 4.6 3.6 - 4.9 mmol/L 07/13/2024 6:07 AM EDT [facility] Chloride, Plasma 109(H) 97 - 107 mmol/L 07/13/2024 6:07 AM EDT [facility] CO2, Plasma 18(L) 22 - 29 mmol/L 07/13/2024 6:07 AM EDT [facility] Anion Gap 11 6 - 16 mmol/L 07/13/2024 6:07 AM EDT [facility] Total Calcium, Plasma 8.6(L) 8.9 - 10.2 mg/dL 07/13/2024 6:07 AM EDT [facility] eGFRcr 48.0 mL/min/1.7 3m*2 07/13/2024 6:07 AM EDT [facility] Comment:Reported eGFRcr in m L/min/1.73m2 is based the CKD-EPI 2020 equation that does not use a race coefficient. Blood Venous blood specimen / Unknown Venipuncture / Unknown 07/13/2024 4:46 AM EDT 07/13/2024 4:54 AM EDT us Mata Smalls MD LAB BLOOD ORDERABLES Final Res ult [facility] [address] [place] [address] * (ABNORMAL) CBC (07/13/2024 4:46 AM EDT) WBC Count 10.49(H) 3.70 - 10.30 10*3/uL LAB HEMATOLOGY METHOD 07/13/2024 5:10 AM EDT [facility] RBC Count 4.17 3.90 - 5.20 10*6/uL LAB HEMATOLOGY METHOD 07/13/2024 5:10 AM EDT [facility] HGB 11.1(L) 11.2 - 15.7 g/dL LAB HEMATOLOGY METHOD 07/13/2024 5:10 AM EDT [facility] HCT 36.2 34.0 - 45.0 % LAB HEMATOLOGY METHOD 07/13/2024 5:10 AM EDT [facility] Platelet Count 227 155 - 369 10*3/uL LAB HEMATOLOGY METHOD 07/13/2024 5:10 AM EDT [facility] MCV 87 79 - 98 fL LAB HEMATOLOGY METHOD 07/13/2024 5:10 AM EDT [facility] MCH 26.6 26.0 - 32.0 pg LAB HEMATOLOGY METHOD 07/13/2024 5:10 AM EDT [facility] MCHC 30.7 30.7 - 35.5 g/dL LAB HEMATOLOGY METHOD 07/13/2024 5:10 AM EDT [facility] RDW 17.4(H) 11.5 - 14.5 % LAB HEMATOLOGY METHOD 07/13/2024 5:10 AM EDT [facility] MPV 12.6(H) 8.8 - 12.5 fL LAB HEMATOLOGY METHOD 07/13/2024 5:10 AM EDT [facility] nRBC 0.0 <=0.0 per 100 WBCs LAB HEMATOLOGY METHOD 07/13/2024 5:10 AM EDT [facility] Blood Venous blood specimen / Unknown Venipuncture / Unknown 07/13/2024 4:46 AM EDT 07/13/2024 4:54 AM EDT Mata Smalls MD LAB BLOOD ORDERABLES Final Res ult Performing Organization Address [facility] de Phone Number [facility] [address] [place] [address] * (ABNORMAL) Procalcitonin, Plasma (07/13/2024 4:46 AM EDT) Procalcitonin, Plasma 1.20(H) <0.09 ng/mL 07/13/2024 6:07 AM EDT [facility] [facility] Blood Venous blood specimen / Unknown Venipuncture / Unknown 07/13/2024 4:46 AM EDT 07/13/2024 4:54 AM EDT Narrative [facility] - 07/13/2024 6:07 AM EDT [...] predict 28 day mortality risk. Please consult [email or web address] for more information. Test performed at [facility]. us Mata Smalls MD LAB BLOOD ORDERABLES Final Res ult Performing Organization Address [facility] Co de Phone Number [facility] [address] [place] [address] * (ABNORMAL) Phosphorus, Plasma (07/13/2024 4:46 AM EDT) Phosphorus, Plasma 2.1(L) 2.5 - 4.5 mg/dL 07/13/2024 6:07 AM EDT [facility] Blood Venous blood specimen / Unknown Venipuncture / Unknown 07/13/2024 4:46 AM EDT 07/13/2024 4:54 AM EDT us Mata Smalls MD LAB BLOOD ORDERABLES Final Res ult Performing Organization Address [facility] de Phone Number [facility] [address] [place] [address] * Magnesium, Plasma (07/13/2024 4:46 AM EDT) Magnesium, Plasma 2.3 1.9 - 2.4 mg/dL 07/13/2024 6:07 AM EDT [facility] Blood Venous blood specimen / Unknown Venipuncture / Unknown 07/13/2024 4:46 AM EDT 07/13/2024 4:54 AM EDT us Mata Smalls MD LAB BLOOD ORDERABLES Final Res ult Performing Organization Address [facility] [place] [address] * Anti Xa Level Unfractionated Heparin (07/12/2024 11:21 AM EDT) [facility] Anti Xa Level Unfractionated Heparin <0.11 <1.00 IU/mL LAB COAGULATION METHOD 07/12/2024 12:19 PM EDT [facility] Blood Venous blood specimen / Unknown Venipuncture / Unknown 07/12/2024 11:21 AM EDT 07/12/2024 11:41 AM EDT Narrative [facility] - 07/12/2024 12:19 PM EDT Therapeutic Range: UFH Full Dose and ACS/[place] protocols*: 0.30 - 0.70 IU/mL UFH Low Dose protocol*: 0.25 - 0.50 IU/mL UFH prophylaxis: Not established us Daniel Porter MD LAB BLOOD ORDERABLES Final Resul t [facility] [address] [place] [address] * (ABNORMAL) CBC (07/12/2024 6:16 AM EDT) WBC Count 10.69(H) 3.70 - 10.30 10*3/uL LAB HEMATOLOGY METHOD 07/12/2024 6:16 AM EDT [facility] RBC Count 3.62(L) 3.90 - 5.20 10*6/uL LAB HEMATOLOGY METHOD 07/12/2024 6:16 AM EDT [facility] HGB 9.7(L) 11.2 - 15.7 g/dL LAB HEMATOLOGY METHOD 07/12/2024 6:16 AM EDT [facility] HCT 32.3(L) 34.0 - 45.0 % LAB HEMATOLOGY METHOD 07/12/2024 6:16 AM EDT [facility] Platelet Count 183 155 - 369 10*3/uL LAB HEMATOLOGY METHOD 07/12/2024 6:16 AM EDT [facility] MCV 89 79 - 98 fL LAB HEMATOLOGY METHOD 07/12/2024 6:16 AM EDT [facility] MCH 26.8 26.0 - 32.0 pg LAB HEMATOLOGY METHOD 07/12/2024 6:16 AM EDT [facility] MCHC 30.0(L) 30.7 - 35.5 g/dL LAB HEMATOLOGY METHOD 07/12/2024 6:16 AM EDT [facility] RDW 17.5(H) 11.5 - 14.5 % LAB HEMATOLOGY METHOD 07/12/2024 6:16 AM EDT [facility] MPV 12.7(H) 8.8 - 12.5 fL LAB HEMATOLOGY METHOD 07/12/2024 6:16 AM EDT [facility] nRBC 0.0 <=0.0 per 100 WBCs LAB HEMATOLOGY METHOD 07/12/2024 6:16 AM EDT [facility] Blood Venous blood specimen / Unknown 07/12/2024 6:08 AM EDT us Mata Smalls MD LAB BLOOD ORDERABLES Final Res ult [facility] [address] [place] [address] * (ABNORMAL) Basic metabolic panel (07/12/2024 5:47 AM EDT) Glucose, Plasma 122(H) 74 - 99 mg/dL 07/12/2024 6:28 AM EDT [facility] BUN, Plasma 26(H) 8 - 23 mg/dL 07/12/2024 6:28 AM EDT [facility] Creatinine, Plasma 1.18(H) 0.60 - 1.10 mg/dL 07/12/2024 6:28 AM EDT [facility] BUN/Creatinine Ratio 07/12/2024 6:28 AM EDT [facility] Sodium, Plasma 138 136 - 145 mmol/L 07/12/2024 6:28 AM EDT [facility] Potassium, Plasma 4.7 3.6 - 4.9 mmol/L 07/12/2024 6:28 AM EDT [facility] Chloride, Plasma 108(H) 97 - 107 mmol/L 07/12/2024 6:28 AM EDT [facility] CO2, Plasma 21(L) 22 - 29 mmol/L 07/12/2024 6:28 AM EDT [facility] Anion Gap 9 6 - 16 mmol/L 07/12/2024 6:28 AM EDT [facility] Total Calcium, Plasma 8.6(L) 8.9 - 10.2 mg/dL 07/12/2024 6:28 AM EDT [facility] eGFRcr 46.5 mL/min/1.7 3m*2 07/12/2024 6:28 AM EDT [facility] Comment:Reported eGFRcr in m L/min/1.73m2 is based the CKD-EPI 2020 equation that does not use a race coefficient. Blood Venous blood specimen / Unknown Venipuncture / Unknown 07/12/2024 5:47 AM EDT 07/12/2024 6:00 AM EDT us Mata Smalls MD LAB BLOOD ORDERABLES Final Res ult Performing Organization Address [facility] Co de Phone Number [facility] [address] [place] [address] * Phosphorus, Plasma (07/12/2024 5:47 AM EDT) Pathologist [facility] Phosphorus, Plasma 2.8 2.5 - 4.5 mg/dL 07/12/2024 6:28 AM EDT [facility] Blood Venous blood specimen / Unknown Venipuncture / Unknown 07/12/2024 5:47 AM EDT 07/12/2024 6:00 AM EDT us Mata Smalls MD LAB BLOOD ORDERABLES Final Res ult Performing Organization Address [facility] Co de Phone Number [facility] [address] [place] [address] * Magnesium, Plasma (07/12/2024 5:47 AM EDT) [facility] Magnesium, Plasma 2.3 1.9 - 2.4 mg/dL 07/12/2024 6:28 AM EDT [facility] Blood Venous blood specimen / Unknown Venipuncture / Unknown 07/12/2024 5:47 AM EDT 07/12/2024 6:00 AM EDT us Mata Smalls MD LAB BLOOD ORDERABLES Final Res ult Performing Organization Address City/[facility] Co de Phone Number [facility] [address] [place] [address] * (ABNORMAL) POCT glucose meter (07/11/2024 7:38 AM EDT) [facility] POCT Glucose 174(H) 74 - 99 mg/dL [...] Comment 07/11/2024 7:39 AM EDT [facility] Auto Inspection Specialist ID Bambi Collazo 07/12/19 7:39 AM EDT [facility] Device ID [id number] 07/11/2024 7:39 AM EDT [facility] Specimen Type POC Capillary 07/11/2024 7:39 AM EDT [facility] Blood Capillary blood specimen / Unknown 07/11/2024 7:38 AM EDT 07/11/2024 7:39 AM EDT us Mata Smalls MD LAB POINT OF CARE TE ST DOCKED DEVICE UNSOLICITED RESULTS Final Result Performing Organization Address City/State/[facility] Co de Phone Number [facility] [address] [place] [phone] * (ABNORMAL) Basic metabolic panel (07/11/2024 6:14 AM EDT) Glucose, Plasma 733(HH) 74 - 99 mg/dL 07/11/2024 7:17 AM EDT [facility] BUN, Plasma 23 8 - 23 mg/dL 07/11/2024 7:17 AM EDT [facility] Creatinine, Plasma 0.83 0.60 - 1.10 mg/dL 07/11/2024 7:17 AM EDT [facility] BUN/Creatinine Ratio 28 07/11/2024 7:17 AM EDT [facility] Sodium, Plasma 138 136 - 145 mmol/L 07/11/2024 7:17 AM EDT [facility] Potassium, Plasma 4.5 3.6 - 4.9 mmol/L 07/11/2024 7:17 AM EDT [facility] Chloride, Plasma 109(H) 97 - 107 mmol/L 07/11/2024 7:17 AM EDT [facility] CO2, Plasma 16(L) 22 - 29 mmol/L 07/11/2024 7:17 AM EDT [facility] Anion Gap 13 6 - 16 mmol/L 07/11/2024 7:17 AM EDT [facility] Total Calcium, Plasma 7.6(L) 8.9 - 10.2 mg/dL 07/11/2024 7:17 AM EDT [facility] eGFRcr 70.9 mL/min/1.7 3m*2 07/11/2024 7:17 AM EDT [facility] Comment:Reported eGFRcr in m L/min/1.73m2 is based the CKD-EPI 2020 equation that does not use a race coefficient. Blood Venous blood specimen / Unknown Venipuncture / Unknown 07/11/2024 6:14 AM EDT 07/11/2024 6:25 AM EDT us Mata Smalls MD LAB BLOOD ORDERABLES Final Res ult [facility] [address] [place] [address] * (ABNORMAL) CBC (07/11/2024 6:14 AM EDT) WBC Count 15.48(H) 3.70 - 10.30 10*3/uL LAB HEMATOLOGY METHOD 07/11/2024 6:38 AM EDT [facility] RBC Count 3.82(L) 3.90 - 5.20 10*6/uL LAB HEMATOLOGY METHOD 07/11/2024 6:38 AM EDT [facility] HGB 10.5(L) 11.2 - 15.7 g/dL LAB HEMATOLOGY METHOD 07/11/2024 6:38 AM EDT [facility] HCT 34.7 34.0 - 45.0 % LAB HEMATOLOGY METHOD 07/11/2024 6:38 AM EDT [facility] Platelet Count 243 155 - 369 10*3/uL LAB HEMATOLOGY METHOD 07/11/2024 6:38 AM EDT [facility] MCV 91 79 - 98 fL LAB HEMATOLOGY METHOD 07/11/2024 6:38 AM EDT [facility] Comment:Results inconsistent with previous lab findings. MCH 27.5 26.0 - 32.0 pg LAB HEMATOLOGY METHOD 07/11/2024 6:38 AM EDT [facility] MCHC 30.3(L) 30.7 - 35.5 g/dL LAB HEMATOLOGY METHOD 07/11/2024 6:38 AM EDT [facility] RDW 17.4(H) 11.5 - 14.5 % LAB HEMATOLOGY METHOD 07/11/2024 6:38 AM EDT [facility] MPV 12.2 8.8 - 12.5 fL LAB HEMATOLOGY METHOD 07/11/2024 6:38 AM EDT [facility] nRBC 0.0 <=0.0 per 100 WBCs LAB HEMATOLOGY METHOD 07/11/2024 6:38 AM EDT [facility] Blood Venous blood specimen / Unknown Venipuncture / Unknown 07/11/2024 6:14 AM EDT 07/11/2024 6:24 AM EDT us Mata Smalls MD LAB BLOOD ORDERABLES Final Res ult Performing Organization Address City/[facility]/ZIP Co de Phone Number [facility] [address] [place] [address] * (ABNORMAL) Phosphorus, Plasma (07/11/2024 6:14 AM EDT) Phosphorus, Plasma 2.2(L) 2.5 - 4.5 mg/dL 07/11/2024 7:17 AM EDT [facility] Blood Venous blood specimen / Unknown Venipuncture / Unknown 07/11/2024 6:14 AM EDT 07/11/2024 6:25 AM EDT us Mata Smalls MD LAB BLOOD ORDERABLES Final Res ult Performing Organization Address City/[facility]/ZIP Co de Phone Number [facility] [address] [place] [address] * (ABNORMAL) Magnesium, Plasma (07/11/2024 6:14 AM EDT) Magnesium, Plasma 1.8(L) 1.9 - 2.4 mg/dL 07/11/2024 7:17 AM EDT [facility] Blood Venous blood specimen / Unknown Venipuncture / Unknown 07/11/2024 6:14 AM EDT 07/11/2024 6:25 AM EDT us Mata Smalls MD LAB BLOOD ORDERABLES Final Res ult [facility] [address] [place] [address] * Surgical Pathology Exam (07/10/2024 5:09 PM EDT) Case Report Surgical Pathology Case: [id number] Authorizing Provider: Mata Smalls MD Collected: 07/10/2024 1703 Ordering Location: [facility] Received: 07/11/2024 0810 Pathologist: Gayatri Granados MD Specimen: Other (specify site), Right Colon 3:01 PM EDT [facility] Final Diagnosis A. RIGHT COLON, RESECTION: - ADENOCARCINOMA, pT3, pN0, SEE SYNOPTIC CHECKLIST. - MARGINS NEGATIVE FOR TUMOR. - THIRTEEN LYMPH NODES NEGATIVE FOR MALIGNANCY, (0/13). - SESSILE SERRATED ADENOMA. 3:01 PM EDT [facility] at 1501 EDT Synoptic Checklist COLON AND [...] pT3 pN Category: pN0 5 3:01 PM T [facility] Tumor Blocks Tumor blocks: A9 5 3:01 PM T [facility] Clinical Information Malignant neoplasm of colon, unspecified part of colon (CMS/HCC) [C18.9] 5 3:01 PM T [facility] Special and Immunohistochemical Stains Immunostains were performed that in conjunction with the morphology supports the diagnosis. IHC: A9-2 CK20: focal positive staining in tumor cells A9-3 CDX-2: focal weak positive staining in tumor cells All controls show appropriate reactivity. All immunohistochemis try, in situ hybridization, and histochemical tests were developed by and are performed at the [facility], [address] [place] [address]. All tests reported here, except those addressing [...] negativity on decalcified specimens. 5 3:01 PM T [facility] Gross Description A. RIGHT COLON Received fresh [...] follows: A1: Proximal margin, en face A2: Rn Mds Coordinator terminal ileum A3: Ileocecal valve A4: Appendiceal resection margin A5: Representatively colonic mucosa A6: Polypoid lesion #1 A7: Polypoid lesion # 2, bisected A8: Polypoid lesion # 3 A9: Mass to blue inked area of puckering A10: Mass with possible pericolonic soft tissue involvement A11: Mass to uninvolved mucosa with area of tattooing A12-A13: Rn Mds Coordinator mass A14: Distal margin, en face A15: [...] Cold Time: 15h 01m BENITO Palencia (ASCP) 3:01 PM EDT [facility] Tissue Topography unknown / Unknown 07/10/2024 5:09 PM EDT 07/11/2024 8:10 AM EDT Comment:Pre-op diagnosis: Malignant neoplasm of colon, unspecified part of colon (CMS/HCC) [C18.9] us Mata Smalls MD LAB PATHOLOGY ORDERABLES Final Result [facility] [address] [place] [address] * POCT glucose meter (07/10/2024 1:42 PM EDT) POCT Glucose 93 74 - 99 mg/dL 07/10/2024 1:44 PM EDT [facility] Comment:Accuracy of a glucos [...] Comment 07/10/2024 1:44 PM EDT [facility] Auto Inspection Specialist ID Mercedez Bowman 07/10/2024 1:44 PM EDT [facility] Device ID [id number] 07/10/2024 1:44 PM EDT [facility] Specimen Type POC Capillary 07/10/2024 1:44 PM EDT [facility] Blood Capillary blood specimen / Unknown 07/10/2024 1:42 PM EDT 07/10/2024 1:44 PM EDT us Mata Smalls MD LAB POINT OF CARE TE ST DOCKED DEVICE UNSOLICITED RESULTS Final Result [facility] [address] [place] [address] * Type and screen (07/10/2024 12:59 PM [...] LAB BLOOD BANK TEST ORDERABLES Final Result BLOOD BANK [address] [place] [address], * (ABNORMAL) CBC (07/10/2024 12:59 PM EDT) WBC Count 8.10 3.70 - 10.30 10*3/uL LAB HEMATOLOGY METHOD 07/10/2024 1:19 PM EDT [facility] RBC Count 4.63 3.90 - 5.20 10*6/uL LAB HEMATOLOGY METHOD 07/10/2024 1:19 PM EDT [facility] HGB 12.4 11.2 - 15.7 g/dL LAB HEMATOLOGY METHOD 07/10/2024 1:19 PM EDT [facility] HCT 39.3 34.0 - 45.0 % LAB HEMATOLOGY METHOD 07/10/2024 1:19 PM EDT [facility] Platelet Count 232 155 - 369 10*3/uL LAB HEMATOLOGY METHOD 07/10/2024 1:19 PM EDT [facility] MCV 85 79 - 98 fL LAB HEMATOLOGY METHOD 07/10/2024 1:19 PM EDT [facility] MCH 26.8 26.0 - 32.0 pg LAB HEMATOLOGY METHOD 07/10/2024 1:19 PM EDT [facility] MCHC 31.6 30.7 - 35.5 g/dL LAB HEMATOLOGY METHOD 07/10/2024 1:19 PM EDT [facility] RDW 17.1(H) 11.5 - 14.5 % LAB HEMATOLOGY METHOD 07/10/2024 1:19 PM EDT [facility] MPV 12.7(H) 8.8 - 12.5 fL LAB HEMATOLOGY METHOD 07/10/2024 1:19 PM EDT [facility] nRBC 0.0 <=0.0 per 100 WBCs LAB HEMATOLOGY METHOD 07/10/2024 1:19 PM EDT [facility] Blood Venous blood specimen / Unknown Venipuncture / Unknown 07/10/2024 12:59 PM EDT 07/10/2024 1:07 PM EDT us Mata Smalls MD LAB BLOOD ORDERABLES Final Res ult [facility] [address] [place] [address] documented in this encounter Visit Diagnoses Diagnosis [...] Action Action Date Dose Rate Site acetaminophen (Tylenol) tablet 500 mg 500 mg, Oral, Every 6 hours, First dose (after last modification) on Wed07/12/24 at 1530, Until Discontinued, Routine, Recovery(Phase II-Outpatient)/On Unit(Inpatient) Given 07/15/2024 3:00 PM EDT 500 mg Given 07/15/2024 10:08 AM EDT 500 mg Given 07/14/2024 8:44 PM EDT 500 mg furosemide (Lasix) tablet 20 mg 20 mg, Oral, Daily, First dose on 07/15/24 at 0900, Until Discontinued, Routine heparin (porcine) injection 7,500 Units 7,500 Units, Subcutaneous, Every 8 hours, First dose on Wed07/11/24 at 0000, Until Discontinued, Routine, Recovery(Phase II-Outpatient)/On Unit(Inpatient) Given 07/15/2024 12:14 AM EDT 7,500 Units Right Upper Arm (Back) Given 07/14/2024 4:53 PM EDT 7,500 Units L eft Upper Arm (Back) Given 07/14/2024 8:10 AM EDT 7,500 Units L eft Upper Arm (Back) HYDROcodone-acetaminophen ([place]) 5-325 MG per tablet 7.5 mg of hydrocodone 7.5 mg of hydrocodone, Oral, Every 4 hours PRN, Starting on Wed07/12/24 at 1357, Until Wed07/15/24 at 1846, Routine, Recovery(Phase II-Outpatient)/On Unit(Inpatient), severe pain, moderate pain Given 07/15/2024 3:00 PM EDT 7.5 mg of hydrocodone Given 07/15/2024 8:33 AM EDT 7.5 mg of hydrocodone Given 07/15/2024 3:08 AM EDT 7.5 mg of hydrocodone isosorbide mononitrate ER (Imdur) 24 hr tablet 60 mg 60 mg, Oral, Daily, First dose on Wed07/13/24 at 1030, Until Discontinued, Routine Given 07/15/2024 8:33 AM EDT 60 mg Given 07/14/2024 8:10 AM EDT 60 mg Given 07/13/2024 11:37 AM EDT 60 mg methocarbamol (Robaxin) tablet 500 mg 500 mg, [...] AM EDT 1 Application nebivolol (Bystolic) tablet 5 mg 5 mg, [...] 07/11/2024 4:04 PM EDT 4 mg ondansetron ODT (Zofran-ODT) [...] Given 07/14/2024 8:10 AM EDT 40 mg pravastatin (Pravachol) tablet 80 mg 80 mg, [...] Collazo RN)1523 (Given - Provider: Bambi Collazo RN)2033 (Not Given - Provider: Fiordaliza George RN - Reason: Hold for condition: must add comment - Comment: cumulative overdose) 0249 (Not Given - Provider: Fiordaliza George RN - Reason: Hold for condition: must add comment - Comment: sleeping)0948 (Given - Provider: Cherelle Eason RN)1654 (Given - Provider: Cherelle Eason RN)2044 (Given - Provider: Roya Gallagher RN) 0309 (Not Given - Provider: Roya Gallagher, ARRON - Reason: Hold for condition: must add comment - Comment: cumulative overdose)1008 (Given - Provider: Mary Kaba)1500 (Given - Provider: Mary Kaba) alvimopan (Entereg) capsule 12 mg (CANCELED) 12 mg, Oral, 2 times daily, 14 doses, First dose on Wed07/10/24 at 2130, Last dose on Wed07/17/24 at 0900, Routine, Recovery(Phase II-Outpatient)/On Unit(Inpatient) 0920 (Given - Provider: Bambi Collazo RN)2033 (Given - Provider: Fiordaliza George, ARRON) 0811 (Given - Provider: Cherelle Eason, ARRON) bumetanide (Bumex) tablet 1 mg (CANCELED) 1 mg, Oral, Daily, First dose on Viv 07/13/24 at 0900, Until Discontinued, Routine 0913 (Given - Provider: Bambi Collazo RN) 0810 (Given - Provider: Cherelle Eason RN) furosemide (Lasix) tablet 20 mg 20 mg, Oral, Daily, First dose on 07/15/24 at 0900, Until Discontinued, Routine 0834 (Not [...] George RN) 0810 (Given - Provider: Cherelle Eason RN)1653 (Given - Provider: Cherelle Eason RN) 0014 (Given - Provider: Roya Gallagher, ARRON)0834 (Not Given - Provider: Mary Kaba - Reason: Patient/family refused)1503 (Not Given - Provider: Mary Kaba - Reason: Patient/family refused) isosorbide mononitrate ER (Imdur) 24 hr tablet 60 mg 60 mg, Oral, Daily, First dose on Viv 07/13/24 at 1030, Until Discontinued, Routine 1137 (Given [...] Bambi Collazo RN)1823 (Given - Provider: Bambi Collazo RN)2330 (Given - Provider: Fiordaliza George RN) 0527 (Given - Provider: Fiordaliza George RN)1215 (Given - Provider: Cherelle Eason RN)1718 (Given - Provider: Cherelle Eason RN) 0014 (Given - Provider: Roya Gallagher, ARRON)0537 (Given - Provider: Roya Gallagher RN)1201 (Given [...] Bambi Collazo RN)203 (Given - Provider: Fiordaliza Akemon, RN) 0811 (Given - Provider: Cherelle Eason RN)2017 (Given - Provider: Roya Gallagher RN) 0834 (Given - Provider: Mary Kaba) nebivolol (Bystolic) tablet 5 mg 5 mg, Oral, Daily, First dose (after last modification) on Viv 07/13/24 at 2100, Until Discontinued, Recovery(Phase II-Outpatient)/On Unit(Inpatient) 2032 (Given - Provider: Fiordaliza George RN) 2043 (Given - Provider: Roya Gallagher RN) pantoprazole (Protonix) EC tablet 40 mg 40 mg, Oral, 2 times daily, First dose on Wed07/12/24 at 1045, Until Discontinued, Routine 912 (Given - Provider: Bambi Collazo RN)2032 (Given - Provider: Fiordaliza George RN) 08 (Given - Provider: Cherelle Eason RN)2017 (Given - Provider: Roya Gallagher RN) 0833 (Given - Provider: Mary Kaba) pravastatin (Pravachol) tablet 80 mg 80 mg, Oral, Nightly, First dose on Wed07/10/24 at 2100, Until Discontinued, Recovery(Phase II-Outpatient)/On Unit(Inpatient) 2032 (Given - Provider: Fiordaliza George RN) 2017 (Given - Provider: Roya Gallagher RN) pregabalin (Lyrica) capsule 75 mg 75 mg, Oral, 2 times daily, First dose on Wed07/10/24 at 2130, Until Discontinued, Routine, Recovery(Phase II-Outpatient)/On Unit(Inpatient) 09 (Given - Provider: Bambi Collazo RN)2032 (Given - Provider: Fiordaliza George RN) 0810 (Given - Provider: Cherelle Eason, RN)2017 (Given - Provider: Roya Gallagher RN) 0833 (Given - Provider: Mary Kaba) PRN Medication Order 07/13/2024 07/14/2024 07/15/2024 HYDROcodone-acetaminophe n ([place]) 5-325 MG per tablet 7.5 mg of hydrocodone 7.5 mg of hydrocodone, Oral, Every 4 hours PRN, Starting on Wed07/12/24 at 1357, Until 07/15/24 at 1846, Routine, [...] Cherelle Eason, ARRON)1654 (Given - Provider: Cherelle Eason RN)2044 (Given - Provider: Roya Gallagher RN) 0308 (Given - Provider: Roya Gallagher RN)0833 [...] documented as of this encounter Care Teams [place] Relationship Specialty Start Date End Date Jose Mendoza MD [address] [place] [address] [place] [address] PCP - General Internal Medicine 05/23/24 documented as of this encounter
--- OUTSIDE RECORDS SUMMARY | 2024-07-10 15:22 | XMS_ITS | Encounter Summary ---
Author Organization Healthcare Address [address] [place] [address] Care Team Providers Care Operations Professional Name Role Phone Jose Mendoza MD Primary Care Provider [phone] Reason for Visit * Auth/Cert (Routine) Specialty Diagnoses / Procedures Referred By Contac t Referred To Contact Diagnoses Malignant neoplasm of colon, unspecified part of colon (CMS/HCC) Malignant neoplasm of colon, unspecified part of colon (CMS/HCC) [C18.9] Procedures LA LAP,SURG,COLECTOMY,W/REMVL TERM ILEUM lap right, possible ileostomy Mata Smalls MD [address] [facility] [address] [place] [address] Phone: tel: fax: [facility] [address] [place] [address] Phone: tel: Referral ID Status Reason Start Date Expiration Date Visits Re quested Visits Authorized [id number] 1 1 Encounter Details Date Type Department Care Team (Late st Contact Info) Description 07/10/2024 3:22 PM EDT Anesthesia Event [facility] [address] [place] [address] Richy Smalls MD [address] [place] [address] Jose Luis Lopez MD [address] [place] [address] Anesthesia Record Procedure Summary Procedure Name Responsible [...] acknowledgement of understanding. 1815 An Stop Meds Name Total lidocaine PF (Xylocaine-MPF) 2% 100 mg propofol (Diprivan) injection 10 mg/mL 2 00 mg rocuronium (ZeMuron) injection 10 mg/mL 50 mg succinylcholine (Anectine) injection 20 mg/mL 160 mg dexamethasone (Decadron) injection 4 mg/ mL 8 mg phenylephrine (Clint-Synephrine) prefilled syringe 1 mg/10 mL 150 mcg sugammadex (Bridion) injection 100 mg/mL 300 mg fentaNYL (SUBLIMAZE) 150 mcg cefOXitin (Mefoxin) vial 2 g 2 g ropivacaine (Naropin) injection 0.2 % 10 mL lactated Ringer's infusion 640 mL * Agents Name O2 N2O Air Sevoflurane Isoflurane Desflurane Inspired Desflurane Inspired Isoflurane Inspired Sevoflurane N2O Inspired N2O * Blood No blood administrations on file. Lines, Drains, and Airways Type Details Placement Removal Wound 07/10/24; 1738; N; Y es; Surgical; Laparoscopic; Umbilicus 07/10/241738 by Viral Cardozo RN Peripheral IV Placement Date: 06/22 11/16; Placement Time: 1300; Catheter Size: 20 G; Orientation: Posterior, Right; Location: Hand; Site Prep: Chlorhexidine ; Local Anesth: [place]; Technique: Anatomical landmarks; Inserted by: Amando; Insertion Attempts: 1; Patient Tolerance: Tolerated well; Removal Date: 07/11/24; Removal Time: 1809; Removal Reason: Per patient/family request 07/10/24 1300 by Mercedez Bowman RN 07/11/24 1810 by Bambi Collazo RN Epidural Placement Date: 06/22 11/16; Placement Time: 144 (created via procedure documentation); Removal Date: 07/12/24 07/10/24 1445 by Damir Pulido MD 07/12/24 0000 by iFordaliza George RN ETT Placement Date: 06/22 11/16; Placement Time: 153 (created via procedure documentation); Mask Ventilation: 0; Technique: Video laryngoscopy; Type: ETT - single; Single Lumen Tube Size: 7 mm; Cuffed: Yes; Laryngoscope: Adelfo; Blade Size: 3; Location: Oral; Grade View: Grade I; Insertion Attempts: 1; Placement Verification: Auscultation, Capnometry; Airway Comments: Atraumatic. No change to dentition. ; Placed by: Resident ; Removal Date: 07/10/24; Removal Time: 180307/10/24 153 by Richy Smalls MD 07/10/24 180 by Vagnie Barney CRNA, DNP Urethral Catheter Placement Date: 06/22 11/16; Placement Time: 155; Inserted by: Viral Cardozo RN; Type: Single lumen, Temperature probe, Non-latex; Size: 16 Fr.; Balloon Size: 10 mL; Urine Returned: Yes; Removal Date: 07/12/24; Removal Time: 92807/10/24 155 by Viral Cardozo RN 07/12/24 09 by Bambi Collazo RN Arterial Line Placement Date: 06/22 11/16; Placement Time: 160 (created via procedure documentation); Size: 20 G; Orientation: Right; Location: Radial; Inserted by: Resident; Securement: Taped; Patient Tolerance: Tolerated well; Removal Date: 07/10/24; Removal Time: 191207/10/24 160 by Richy mSalls MD 07/10/24 1913 by Mary Claudio RN Peripheral IV Placement Date: 06/22 11/16; Placement Time: 1606 (created via procedure documentation); Catheter Size: 16 G; Orientation: Left; Location: Hand; Local Anesth: Injectable; Technique: Anatomical landmarks; Inserted by: Richy Smalls MD; Insertion Attempts: 1; Removal Date: 07/14/24; Removal Time: 04007/10/24 160 by Richy Smalls MD 07/14/24 0400 by Fiordaliza George RN documented in this [...] any time in the past 12 m onths, were you homeless or living in a residential (including now)? No 07/11/2024 Utilities Answer Date Recorded In the past 12 months has th e [employer], gas, oil, or water company threatened to shut off services in your home? No 07/11/2024 Comments No Sex and Gender Information Value Date Recorded Sex Assigned at Not on file Legal Sex Female 8:12 PM EDT Gender Identity Not on file Sexual Orientation Not on file documented as of this encounter Functional Status * Calculated C-SSRS [...] Mary Kaba documented as of this encounter Miscellaneous Notes * Addendum Note - Richy Smalls MD - 08/03/2024 8:19 AM EDT Addendum created 08/03/24818 by Richy Smalls MD Clinical Note Signed, Intraprocedure Blocks edited, SmartForm saved * Anesthesia Postprocedure Evaluation - Vangie Barney CRNA, DNP - 07/10/2024 6:15 PM EDT Patient: Gina Stone Anesthesia Type: general Vitals Value Taken Time BP 153/76 07/10/24 18:15 Temp 36.6 07/10/24 18:15 Pulse 67 05/19/25 18:15 Resp 15 07/10/24 18:15 SpO2 95 07/10/24 18:15 Anesthesia Post Evaluation Patient location during evaluation: PACU Patient participation: complete - patient participated Level of consciousness: awake Pain management: adequate (pain score 0-3) Airway patency: natural airway Cardiovascular status: acceptable and hemodynamically stable Respiratory status: O2 @6lpm via facetent. Hydration status: acceptable Nausea/Vomiting: No No notable events documented. * Anesthesia Procedure Notes - Richy Smalls MD - 07/10/2024 4:06 PM EDT Associated Order(s): Peripheral IV Peripheral IV Date/Time: 07/10/2024 4:06 PM Inserted by: Richy Smalls MD Placement Needle size: 16 G Location: hand Local anesthetic: injectable Site prep: alcohol Technique: anatomical landmarks Attempts: 1 * Anesthesia Procedure Notes - Richy Smalls MD - 07/10/2024 4:05 PM EDT Associated Order(s): Arterial Line Arterial Line: Date/Time: 07/10/2024 4:05 PM An arterial line was placed. Procedure performed using ultrasound guidance in the pre-op for the following indication(s): continuous blood pressure monitoring and blood sampling needed. Ultrasound was used to visualize vascular needle entry into the radial artery AND ultrasound image was retained. A 20 gauge (size), 1 and 3/4 inch (length), Arrow (type) catheter was placed into the Right radial artery and secured by tape. Seldinger technique used Events: patient tolerated procedure well with no complications and 2 attempts. Additional notes: I was present for placement of arterial line Staffing Performed: Resident Anesthesiologist: Richy Smalls MD * Anesthesia Procedure Notes - Richy Smalls MD - 07/10/2024 4:03 PM EDT Associated Order(s): Airway Airway Date/Time: 07/10/2024 3:39 PM Reason: elective Airway not difficult General Information and Staff Patient location during procedure: OR Anesthesiologist: Richy Smalls MD Performed: Resident Patient Condition Indications for airway management: anesthesia Patient position: sniffing MILS maintained throughout Planned trial extubation Final Airway Details Final airway type: endotracheal airway Successful airway: ETT Cuffed: yes Successful intubation technique: video laryngoscopy Adjuncts used in placement: intubating stylet Endotracheal tube insertion site: oral Blade: Adelfo Blade size: #3 ETT size (mm): 7.0 Cormack-Lehane Classification: grade I - full view of glottis Placement verified by: chest auscultation and capnometry Measured from: lips Additional Comments Atraumatic. No change to dentition. * Anesthesia Procedure Notes - Damir Pulido MD - 07/10/2024 2:57 PM EDT Associated Order(s): Epidural Block Epidural Block Patient location during procedure: pre-op Start time: 07/10/2024 2:45 PM End time: 07/10/2024 2:56 PM Reason for block: post-op pain management Block is at surgeon's request Staffing Performed: Resident Anesthesiologist: Lai Atkins MD Resident: Damir Pulido MD Preanesthetic Checklist Completed: patient identified, IV checked, site marked, risks and benefits discussed, surgical consent, monitors and equipment checked, pre-op evaluation and timeout performed Block Placement Patient position: sitting Prep: ChloraPrep and site prepped and draped Patient monitoring: heart rate and continuous pulse ox Approach: midline Location: T8-T9 Needle Needle type: Tuohy Needle gauge: 17 G Needle length: 3.5 in Needle insertion depth: 7 cm Catheter size: 19 G Catheter at skin depth: 12 cm Test dose: negative and lidocaine 1.5% with epinephrine 1-to-200,000 Medications Administered fentaNYL (SUBLIMAZE) - Intravenous 50 mcg - 07/10/2024 2:45:00 PM Additional Notes After identification of superficial landmarks the skin was prepped with Dura- Prep. Sterile drape placed. Skin anesthetized with 1% lidocaine. Tuohy needle then inserted and directed medially and cephalad with KIM at 7 cm. Catheter threaded easily and inserted 5 cm into the space. Secured at the skin with 12. Tested with 1.5% lidocaine with 1:200k epi 3 cc negative for IV or SA dose. Cosigned by Lai Atkins MD at 07/10/2024 5:07 PM EDT Associated attestation - Lai Atkins MD - 07/10/2024 5:07 PM EDT I was present during all critical and dacosta portions of the procedure(s) and immediately available [facility] services the entire duration. See resident note for details. Lai Atkins: Patient time out completed, anticoagulation status reviewed, patient consent reviewed, vital sign monitors applied. Thoracic epidural analgesics placed in holding room for postop pain relief as requested by surgeon. I was present for the entire procedure. * Anesthesia Preprocedure Evaluation - Richy Smalls MD - 07/10/2024 10:10 AM EDT CAL Stone is a 79 y.o. female who presents with Pre-op Diagnosis * Malignant neoplasm of colon, unspecified part of colon (CMS/HCC) [C18.9] now scheduled for lap right, possible ileostomy (N/A). Date scheduled is 07/10/2024. PMH: PONV, CAD s/p stents , recent heart cath nonflow limiting CAD, CHF, HTN, arthritis, hx of provoked DVT, and HLD that presents for evaluation of colon mass found on Colonoscopy 06/07by Dr. Cohen. Most recent EF 61-65% 10/28/23 Medical History[1] Family History[2] Social History[3] SURGICAL HISTORY: Surgical History[4] Allergies[5] MEDICATIONS: No current facility-administered medications for this encounter. Current Outpatient Medications: alendronate, Take 1 tablet by mouth. aspirin, Chew 1 tablet 1 time each day. baclofen, Take 1 tablet by mouth as needed. Calcium Carbonate-Vitamin D, Take 1 tablet by mouth every morning. ferrous sulfate, Take 1 tablet by mouth [...] day BEFORE surgery. SSI COLON. nebivolol, Take 0.5 tablets by mouth daily. neomycin, Take two tablets (1000 mg) by mouth at 1:00pm, 2:00pm and 11:00pm on the day prior to surgery. SSICOLON Impact Advanced Recovery, Drink 2 cartons a day starting 5 days before surgery. SSICOLON. pantoprazole, Take 1 tablet by mouth daily. pravastatin, Take 1 tablet by mouth daily. pregabalin, Take 1 capsule by mouth 2 times a day. Sutab, Take 0.225 g by mouth every morning. ROS Anesthesia: Date of last anesthetic: Last GA 2 weeks ago - no GA issues. history of previous anesthesia. Does not have a history of anesthetic complications and obstructivesleep apnea. Anesthesia ROS additional comments: + PONV Cardiovascular: Does not have angina, murmur, orthopnea, past [place], PVD or syncope. Cardio additional comments: OSH Card note 03/30/24 (CE) + CAD stents LAD LCx and D1 2010, 2014 mild CAD, 2018 mild CAD with 40% RCA and 60% ostial PLB/circumflex + CHF + [place] chronic / stable for last 2 years + Peripheral edema + SSS s/p pacemaker + HTN - well controlled + HLD + mild to moderate mitral regurgitation + carotid artery disease - mild + precordial CP - pressure and heaviness - LC showed nonflow-limited CAD Previous interrogation 01/31/2024 showed good battery life and lead functions with no cardiac events. Recent left heart cath 03/21/2024 showed nonflow limiting coronary disease. Widely patent LAD, diagonal and circumflex stents. 30% RCA and OM 2 disease. LVEF 65% Fu/u 6 months She lives in a trailer, has a ramp up to [employer]. She can do her own ADL's, light housework/cook. [employer] electric cart at grocery.. Respiratory: Negative respiratory ROS.Does not have home [...] normal (<35 mmHg). 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 Recommendations: Heart [...] recommendations. Support report can be found in EPIC media file. Visit Vitals OB Status Hysterectomy Smoking Status Never Physical Exam Anesthesia Plan ASA 3 Anesthesia technique(s) discussed with the patient/family: general Anesthesia plan agreed upon was: general Anesthetic plan and risks discussed with patient. Richy Smalls MD [1] Past Medical History: Diagnosis Date Arthritis High cholesterol Hypertension [2] Family History Problem Relation Name Age of Onset Anesthesia problems Neg Hx Malig Hyperthermia Neg Hx [3] Social History Tobacco Use Smoking status: Never Passive exposure: Never Smokeless tobacco: Never Vaping Use Vaping status: Never Used Substance Use Topics Alcohol use: Not Currently Drug use: Never [4] Past Surgical History: Procedure Laterality Date CARDIAC CATHETERIZATION 02/2024 no PCI CARDIAC PACEMAKER PLACEMENT COLONOSCOPY CORONARY ANGIOPLASTY WITH STENT PLACEMENT x4 ~ 2013 HYSTERECTOMY KNEE SURGERY MOUTH SURGERY SHOULDER SURGERY TUBAL LIGATION [5] No Known Allergies documented in this encounter Plan of Treatment Upcoming Encounters Date Type Department Care Team (Late st Contact Info) Description 08/15/2024 3:00 PM EDT Office Visit [facility] [address] [place] [address] Mata Smalls MD [address] [place] [address] documented as of this encounter Procedures Procedure Name Priority Date/Time Associated Diagnosis Comments ANESTHESIA PERIPHERAL IV PLACEMENT Routine 07/10/2024 4:06 PM EDT PB POINT OF CARE IMAGING PLACEHOLDER Routine 07/10/2024 4:05 PM EDT PB ANESTHESIA NON-TIMED PROCEDURE PLACEHOLDER Routine 07/10/2024 4:05 PM EDT PB ANESTHESIA PLACEHOLDER Routine 07/10/2024 3:39 PM EDT LA AN ELECTIVE ENDOTRACHEAL AIRWAY Routine 07/10/2024 3:39 PM EDT PB ANESTHESIA NON-TIMED PROCEDURE PLACEHOLDER Routine 07/10/2024 2:45 PM EDT documented in this encounter Results * Peripheral IV (07/10/2024 4:06 PM EDT) Narrative Richy Smalls MD - 07/10/2024 4:06 PM EDT Richy Smalls MD 07/10/2024 4:06 PM Peripheral IV Date/Time: 07/10/2024 4:06 PM Inserted by: Richy Smalls MD Placement Needle size: 16 G Location: hand Local anesthetic: injectable Site prep: alcohol Technique: anatomical landmarks Attempts: 1 us Richy Smalls MD ANESTHESIA ORDERABLES Final Res ult * PB ANESTHESIA NON-TIMED PROCEDURE PLACEHOLDER, PB POINT OF CARE IMAGING PLACEHOLDER (07/10/2024 4:05 PM EDT) Narrative Richy Smalls MD - 07/10/2024 4:05 PM EDT Richy Smalls MD 08/03/2024 8:19 AM Arterial Line: Date/Time: 07/10/2024 4:05 PM An arterial line was placed. Procedure performed using ultrasound guidance in the pre-op for the following indication(s): continuous blood pressure monitoring and blood sampling needed. Ultrasound was used to visualize vascular needle entry into the radial artery AND ultrasound image was retained. A 20 gauge (size), 1 and 3/4 inch (length), Arrow (type) catheter was placed into the Right radial artery and secured by tape. Seldinger technique used Events: patient tolerated procedure well with no complications and 2 attempts. Additional notes: I was present for placement of arterial line Staffing Performed: Resident Anesthesiologist: Richy Smalls MD us Richy Smalls MD ANESTHESIA ORDERABLES Edited Re sult - Final * LA AN ELECTIVE ENDOTRACHEAL AIRWAY, PB ANESTHESIA PLACEHOLDER (07/10/2024 3:39 PM EDT) Narrative Richy Smalls MD - 07/10/2024 3:39 PM EDT Richy Smalls MD 07/10/2024 4:05 PM Airway Date/Time: 07/10/2024 3:39 PM Reason: elective Airway not difficult General Information and Staff Patient location during procedure: OR Anesthesiologist: Richy Smalls MD Performed: Resident Patient Condition Indications for airway management: anesthesia Patient position: sniffing MILS maintained throughout Planned trial extubation Final Airway Details Final airway type: endotracheal airway Successful airway: ETT Cuffed: yes Successful intubation technique: video laryngoscopy Adjuncts used in placement: intubating stylet Endotracheal tube insertion site: oral Blade: Adelfo Blade size: #3 ETT size (mm): 7.0 Cormack-Lehane Classification: grade I - full view of glottis Placement verified by: chest auscultation and capnometry Measured from: lips Additional Comments Atraumatic. No change to dentition. us Richy Smalls MD ANESTHESIA ORDERABLES Final Res ult * PB ANESTHESIA NON-TIMED PROCEDURE PLACEHOLDER (07/10/2024 2:45 PM EDT) Narrative Lai Atkins MD - 07/10/2024 2:45 PM EDT Lai Atkins MD 07/10/2024 5:07 PM Epidural Block Patient location during procedure: pre-op Start time: 07/10/2024 2:45 PM End time: 07/10/2024 2:56 PM Reason for block: post-op pain management Block is at surgeon's request Staffing Performed: Resident Anesthesiologist: Lai Atkins MD Resident: Damir Pulido MD Preanesthetic Checklist Completed: patient identified, IV checked, site marked, risks and benefits discussed, surgical consent, monitors and equipment checked, pre-op evaluation and timeout performed Block Placement Patient position: sitting Prep: ChloraPrep and site prepped and draped Patient monitoring: heart rate and continuous pulse ox Approach: midline Location: T8-T9 Needle Needle type: Tuohy Needle gauge: 17 G Needle length: 3.5 in Needle insertion depth: 7 cm Catheter size: 19 G Catheter at skin depth: 12 cm Test dose: negative and lidocaine 1.5% with epinephrine 1-to-200,000 Medications Administered fentaNYL (SUBLIMAZE) - Intravenous 50 mcg - 07/10/2024 2:45:00 PM Additional Notes After identification of superficial landmarks the skin was prepped with Dura-Prep. Sterile drape placed. Skin anesthetized with 1% lidocaine. Tuohy needle then inserted and directed medially and cephalad with KIM at 7 cm. Catheter threaded easily and inserted 5 cm into the space. Secured at the skin with 12. Tested with 1.5% lidocaine with 1:200k epi 3 cc negative for IV or SA dose. us Lai Atkins MD ANESTHESIA ORDERABLES Final Resu lt documented in this encounter Visit Diagnoses Not on filedocumented in this encounter Administered Medications Inactive Administered Medications - up to 3 most recent administrations Medication Order MAR Action Action Date Dose Rate Site cefOXitin (Mefoxin) injection Intravenous, As needed, Starting on Wed07/10/24 at 1609, Until Wed07/10/24 at 1816, Routine, Anesthesia Intraprocedure Given 07/10/2024 4:09 PM EDT 2 g dexamethasone (Decadron) injection Intravenous, As needed, Starting on Wed07/10/24 at 1635, Until Wed07/10/24 at 1816, Routine, Anesthesia Intraprocedure Given 07/10/2024 4:35 PM EDT 8 mg fentaNYL (Sublimaze) injection Intravenous, Once PRN Procedure, Starting on Wed07/10/24 at 1445, Until Wed07/10/24 at 1625, Routine, Anesthesia Intraprocedure Given 07/10/2024 4:25 PM EDT 50 mcg Given 07/10/2024 3:29 PM EDT 50 mcg Given 07/10/2024 2:45 PM EDT 50 mcg lactated Ringer's infusion 50 mL/hr, Intravenous, Continuous, Starting on Wed07/10/24 at 1315, Until Wed07/11/24 at 0703, Routine New Bag 07/10/2024 7:08 PM EDT 50 mL/ hr 50 mL/hr New Bag 07/10/2024 5:49 PM EDT 125 mL/hr New Bag 07/10/2024 3:22 PM EDT 125 mL/hr lidocaine PF (Xylocaine) 2 % injection Intravenous, As needed, Starting on Wed07/10/24 at 1529, Until Wed07/10/24 at 1816, Routine, Anesthesia Intraprocedure Given 07/10/2024 3:29 PM EDT 100 mg phenylephrine in NS (Clint-Synephrine) 100 mcg/mL prefilled syringe Intravenous, As needed, Starting on Wed07/10/24 at 1548, Until Wed07/10/24 at 1816, Routine, Anesthesia Intraprocedure Given 07/10/2024 3:48 PM EDT 150 mcg propofol (Diprivan) injection Intravenous, As needed, Starting on Wed07/10/24 at 1529, Until Wed07/10/24 at 1816, Routine, Anesthesia Intraprocedure Given 07/10/2024 5:18 PM EDT 20 mg Given 07/10/2024 4:54 PM EDT 20 mg Given 07/10/2024 3:29 PM EDT 160 mg rocuronium (ZeMuron) injection Intravenous, As needed, Starting on Wed07/10/24 at 1559, Until Wed07/10/24 at 1816, Routine, Anesthesia Intraprocedure Given 07/10/2024 5:00 PM EDT 10 mg Given 07/10/2024 3:53 PM EDT 40 mg ropivacaine (PF) (Naropin) 0.2 % epidural infusion Other, As needed, Starting on Wed07/10/24 at 1624, Until Wed07/10/24 at 1816, Routine, Anesthesia Intraprocedure Given 07/10/2024 5:35 PM EDT 5 mL Given 07/10/2024 4:24 PM EDT 5 mL succinylcholine (Anectine) injection Intravenous, As needed, Starting on Wed07/10/24 at 1529, Until Wed07/10/24 at 1816, Routine, Anesthesia Intraprocedure Given 07/10/2024 3:29 PM EDT 160 mg sugammadex (Bridion) 100 MG/ML injection Intravenous, As needed, Starting on Wed07/10/24 at 1750, Until Wed07/10/24 at 1816, Routine, Anesthesia Intraprocedure Given 07/10/2024 5:50 PM EDT 300 mg documented in this encounter Additional Health Concerns Assessment Noted Time A fall risk assessment has been complete d for the patient 06/20/2024 1:33 PM EDT A Body Mass Index follow-up plan has been documented for the patient 07/15/2024 3:46 PM EDT documented as of this encounter Care Teams Operations Professional Relationship Specialty Start Date End Date Jose Mendoza MD [address] [place] [address] PCP - General Internal Medicine 05/23/24 documented as of this encounter
--- OUTSIDE RECORDS SUMMARY | 2024-07-20 07:30 | XMS_ITS ---
Author Organization [facility] D MAGAN Address [address] [place] [address] Care Team Providers Care Dog Barber Name Role Phone Jose Mendoza Primary Care Provider Allergies Allergen (clinical drug ingredient) Drug/Non Drug Allergy documented on EMR Reaction Allergy Type Onset Date Status oseltamivir Tamiflu dizziness Drug Allergy Activ e REASON FOR VISIT hospital f/u, edema in feet Medications Medication SIG (Take, Route, Frequency, Duration) Notes Start Date End Date Status Pantoprazole Sodium 40 MG 1 tab(s) orally twice a day for 90 days Active HYDROcodone-Acetamino phen 7.5-325 MG 1 tab(s) orally every 6 hours for 30 days 07/10/2024 Active Isosorbide Mononitrate ER 60 MG 1 tab(s) orally once a day (in the morning) for 90 days Active Xarelto 20 MG 1 tab(s) orally once a day (in the evening) for 90 days Active Lisinopril 20 MG 1 tab(s) orally once a day for 90 days Active Pravastatin Sodium 80 MG 1 tab(s) orally once a day for 90 days Active Furosemide 40 MG 1 tab(s) orally once a day for 90 days 04/25/2024 Active Gemtesa 75 MG TAKE 1 TABLET EVERY DAY for 90 Active NEBIVOLOL 10 MG TAKE 1 TABLET [...] a day for 30 days 06/23/2023 Active Baclofen 10 MG 1 tab(s) orally 3 times a day for 90 days Active Alendronate Sodium 70 MG 1 tab(s) orally once a week for 90 days Active Triamcinolone Acetonide 0.5 % 1 emigdio applied topically 2 times a day for 7 days 09/16/2023 Active Multivitamin MULTIPLE VITAMINS 1 CAP(S) ORALLY ONCE A DAY *Please review and pick correct strength-formulatio n from [employer] options. If intended option is not shown, discontinue and re-order from Quick Search* Active Methocarbamol 500 MG 1-2 tab(s) orally 3 times a day for 5 day(s) 03/26/2020 Active Aspirin 81 MG 1 tab(s) orally once a day Active OS-EHSAN 500 1250 MG 1 TAB(S) ORALLY BID *Please review for potential replacement for e-prescription and drug interaction check* Active Vital Signs Temperature 98.4 degrees Fahrenheit 07/21/19 25 Heart Rate 72 /min 07/20/2024 Blood pressure systolic 118 mm Hg 07/21/19 25 Blood pressure diastolic 74 mm Hg 025 Height 5 ft 3 in in 07/20/2024 Weight 224 lbs 07/20/2024 BMI 39.68 kg/m2 07/20/2024 Encounters Encounter Location Date Provider Diagnosis [address] [address] 07/20/2024 Jose Mendoza Diastolic CHF, chronic I50.32 ; S/P right colectomy Z90.49 ; Adenocarcinoma, colon C18.9 and Hospital discharge follow-up Z09 Assessments Encounter Date Diagnosis (ICD Code) Assessment Notes Treatment Notes Treatment Clinical Notes Section Notes 07/20/2024 Diastolic CHF, chronic (ICD-10 - I50.32) -RA, comfortable, volume status stable, cont current regimen. 07/20/2024 S/P right colectomy (ICD-10 - Z90.49) -Op on 07/10, recovering remarkably well w/ resolution of multiple non specific symptoms -BM, diet, and ADLs/functional status intact/recoveri ng as expected or better -No signs of post op complicaiton, exam showing great healing -following up w/CRC and Cards. -RTC in 1 month for follow up on chronic med conditions 07/20/2024 Adenocarcinoma , colon (ICD-10 - C18.9) -s/p resection as above 07/20/2024 Hospital discharge follow-up (ICD-10 - Z09) Personally reviewed H&P and discharge summary as available from hospital discharge documentation. Reviewed pertinent labs and test done in the hospital. Personally reconciled medication. Plan Of Treatment Treatment Notes Assessment Notes Diastolic CHF, chronic -RA, comfortable, volume status stable, cont current regimen. S/P right colectomy -Op on 07/10, recovering remarkably well w/ resolution of multiple non specific symptoms -BM, diet, and ADLs/functional status intact/recovering as expected or better -No signs of post op complicaiton, exam showing great healing -following up w/CRC and Cards. -RTC in 1 month for follow up on chronic med conditions Adenocarcinoma, colon -s/p resection as above Hospital discharge follow-up Personally reviewed H&P and discharge summary as available from hospital discharge documentation. Reviewed pertinent labs and test done in the hospital. Personally reconciled medication. Next Appt Details Follow Up: prn, Reason: Provider Name:Jose Mendoza, 08/15/2024 10:30:00 AM, [address] [place] [address], [id number], Progress Notes * Jorge TIMeDOB:1945 (79 yo F)Acc No.[id number]:07/20/2024 HOSP F/U Patient: Gina MARTINEZ Provider: Abdelrahman Mendoza MD :1945 A ge:79 Y S ex:Female Date:07/20/2024 Address:[address], [id number] Subjective: * Chief Complaints: * 1 . Hospital f/u. 2. Edema in feet. * HPI: g en: Here for GAIL: 79yo w/CHF, CAD, HTn w/colon mass found on C-scope 06/07. R lap colectomy on 07/10. DC on 07/15. Having appropriate BMs daily and followup scheduled w/CRC 08/15. Current diet: on regular diet, appeitie is still reduced but oral intake of fluids Muscle relaxer use: Still using robaxin and home [place] which is controlling pain. Occasionaly using OTC APAP Since surgery has felt: Breathing improved, abdominal pain and tightness has improved. Noted a lot of gut edema intraop. Urinary and bowel troubles have all resolved New meds: Xarelto and Robaxin, Following w/cards for duration/titration of AC, per Pt this was added for clot prevention. this. No other new meds. I ntrim History: Transition of care visit from hospital D ate of admission to hospital: 0 07/10/2024, D ate of receipt of hospital admission report: 0 07/11/2024,?Date of discharge from hospital: 0 07/15/2024, D ate of receipt of hospital discharge summary: 0 07/17/2024, D ischarge medications reviewed and reconciled from hospital: M edications left unchanged. 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 appropriate uds 06/12, Hyperlipidemia, CAD x 4 stents - normal Nuc Med stress test 09/2022, GERD, Normal mammogram may 2018 - repeated and normal 02/2020 and normal 06/13 and normal 04/17, Last eye exam 11/2015, Colon Cancer. * Surgical History: t ubal , hysterectomy , francis in right femur from fx femur and slipped and fell , cardiac stents x4 , pacemaker 10/2017, back 08/2020, colon /3 removed . * Hospitalization/Major Diagno stic Procedure: H [place] 2012, [facility] - 07/22-07/24/2023, - Colon surgery 07/10-. * Family History: F ather: . M other: . P aternal Grand Father: . P aternal Grand Mother: . M aternal Grand Father: . M aternal Grand Mother: . Siblings: alive, 2 brothers - ca, diagnosed with Cancer. Deb young: alive, COPD, DM, HTN, HLD, diagnosed with [...] *Please review and pick correct strength-formulation from [employer] options. If intended option is not shown, [...] 1 tab(s) orally every 6 hours , Medication List reviewed and reconciled with the patient * Allergies: T amiflu: dizziness. Objective: * Vitals: N urse: dw, Pain: 8, Temp: 98.4, RR: 20, HR: 72, BP: 118/74, Ht: 5 ft 3 in, Wt: 224, BMI:39.68. * Examination: G eneral Examination: General P leasant and Cooperative, NAD on RA, seated in wheelchair w/baseline mobility. Heart: R egular Rate and Rhythm, no murmur, rubs or gallops. Lungs: L CTAB, No wheezes, crackles or rhonchi, Good air movement,. Abdomen: C entral 3-4 inch well healing midline abdominal incision w/2 small 2cm incision noted on the BL lower quadrants; dermabond in place on each incision, no dehiscence and well healing, no erythema nor induration. Very minor TTP on the L side of the abd, non tender on R. No masses.. Neurologic Exam: A lert and oriented x 3. Peripheral pulses: d iminished in the BLLE, delayed cap refill in BLLE. Extremities: 1 + pitting and blanching edema in the BLLE w/BL TTP that pt reports is her baseline. Psych N ormal Mood/Affect. General Appearance: N AD, pleasant. Assessment: * Assessment: 1. S /P right colectomy - Z90.49 (Primary) 2 . D iastolic CHF, chronic - I50.32 3 . A denocarcinoma, colon - C18.9 4 . H ospital discharge follow-up - Z09 Plan: * Treatment: 2. D iastolic CHF, chronic Notes: -RA, comfortable, volume status stable, cont current regimen. 3. A denocarcinoma, colon Notes: -s/p resection as above 4. H ospital discharge follow-up Notes: Personally reviewed H&P and discharge summary as available from hospital discharge documentation. Reviewed pertinent labs and test done in the hospital. Personally reconciled medication. * Procedure Codes: 9 9496 TRANS CARE MGMT 7 DAY DISCH, Modifiers: 25 , 1111F DSCHR MED/CURENT MED MERGE * Follow Up: p rn * * Sign off status: Completed true * Provider: Abdelrahman Mendoza MD Date: 0 07/20/2024 Generated for Printi ng/Faestephanieg/eTransmitting on: 0 08/10/2024 05:25 PM EDT History and Physical Notes * HPI (History of Present Illness) Category Sub-Category Detail Notes Category Not es [place]trim History Transition of care v isit from hospital Date of admission to hospital:: 07/10/2024 Date of receipt of hospital admission re port:: 07/11/2024 Date of discharge from hospital:: 2024 Date of receipt of hospital discharge [place] mmary:: 07/17/2024 Discharge medications review ed and reconciled from hospital:: Medications left unchanged gen Here for GAIL: 79yo w/CHF, CAD, HTn w/colon mass found on C-scope 06/07. R lap colectomy on 07/10. DC on 07/15. Having appropriate BMs daily and followup scheduled w/CRC 08/15. Current diet: on regular diet, appeitie is still reduced but oral intake of fluids Muscle relaxer use: Still using robaxin and home [place] which is controlling pain. Occasionaly using OTC APAP Since surgery has felt: Breathing improved, abdominal pain and tightness has improved. Noted a lot of gut edema intraop. Urinary and bowel troubles have all resolved New meds: Xarelto and Robaxin, Following w/cards for duration/titration of AC, per Pt this was added for clot prevention. this. No other new meds. Examination Category Sub-Category Detail Notes Category Not es General Examination Heart: Regular Rate and Rhythm, no murmur, rubs or gallops Lungs: LCTAB, No wheezes, c rackles or rhonchi, Good air movement, Abdomen: Central 3-4 inch wel l healing midline abdominal incision w/2 small 2cm incision noted on the BL lower quadrants; dermabond in place on each incision, no dehiscence and well healing, no erythema nor induration. Very minor TTP on the L side of the abd, non tender on R. No masses. Extremities: 1+ pitting and deniz yajaira edema in the BLLE w/BL TTP that pt reports is her baseline General Appearance: NAD, pleasant Neurologic Exam: Alert and oriented x 3 Peripheral pulses: diminished in the BL LE, delayed cap refill in BLLE General Pleasant and Coopera tive, NAD on RA, seated in wheelchair w/baseline mobility Psych Normal Mood/Affect
[2024-08-10] VITALS (8 sets, daily range): BP systolic 164–180; BP diastolic 70–114; PULSE 61–90; RESP 14–19; TEMP 37; O2SAT 94–97; BMI 38.9
--- NOTE | 2024-08-10 17:15 | ED_ITS ---
Discharge Plan Disposition Patient Disposition: Home, Self-Care Prescriptions Prescriptions: No Action Complete Multivitamin tablet 1 tab PO DAILY aspirin [Adult Low Dose Aspirin] 81 mg tablet,delayed release (DR/EC) 81 mg PO DAILY calcium carbonate-vitamin D3 [Os-Brodie 500 + D3] 500 mg(1,250mg) -200 unit tablet 1 tab PO BID baclofen 10 mg tablet 10 mg PO TID alendronate 70 mg tablet 70 mg PO QWEEK pantoprazole 40 mg tablet,delayed release (DR/EC) 40 mg PO BID isosorbide mononitrate 60 mg tablet extended release 24 hr 60 mg PO DAILY pravastatin 80 mg tablet 80 mg PO DAILY lisinopril 40 mg tablet 40 mg PO DAILY spironolactone 25 mg tablet 12.5 mg PO DAILY hydrocodone-acetaminophen 7.5-325 mg tablet 1 tab PO DIRECTED Patient Comments: TAKE ONE TABLET BY MOUTH EVERY 6 HOURS MAY CAUSE DROWSINESS nebivolol 10 mg tablet 12.5 mg PO DIRECTED Sutab 1.479-0.188- 0.225 gram tablet See Rx Instructions PO PER PKG DIR Qty: 24 0RF Rx Instructions: at 6pm the night before procedure, swallow 1 tablet every 1-2 minutes. you should finish 12 tablets and entire 16 oz of water within 20 minutes. IMPORTANT: If you experience pre-related symptoms ( nausea, bloating or cramping) pause and slow the rate of drinking additional water until symptoms diminish. approximately one hour after the last tablet, drink 16 oz of water over 30 mins. then repeat 4 hours before procedure time. ferrous sulfate 325 mg (65 mg iron) tablet 325 mg PO BID 30 Days Qty: 60 0RF furosemide [Lasix] 40 mg tablet 40 mg PO DAILY Qty: 7 0RF pregabalin [Lyrica] 75 MG capsule 75 mg PO BID Referrals Follow up/Referrals: Jose Mendoza MD [Primary Care Provider, Internal Medicine] - See instructions Activity Restrictions/Add. Instructions Additional Instructions/Restrictions: I recommend doubling your Lasix for the next 2 days and then following up with either Dr. Mendoza or cardiology. If you have any new or worsening signs or symptoms follow-up sooner or return to the ER as needed. Clinical Impressions Clinical Impression: Acute exacerbation of CHF (congestive heart failure) Qualifiers: Heart failure type: diastolic Qualified Code(s): I50.33 - Acute on chronic diastolic (congestive) heart failure Print Language Print Language: Albanian Discharge ED Provider: Moses Vera General Adult HPI <BENITO Nassar - Last Filed: 08/10/24 20:12> General Chief complaint: Shortness of Breath/Dyspnea Stated complaint: SOA,fever Time Seen by Provider: 08/10/24 17:15 History of Present Illness HPI narrative: Patient presents for evaluation of dyspnea. Patient states that she has had 3 days of increasing dyspnea. She has a history of diastolic heart failure, chronic kidney disease, morbid obesity with a BMI of 39, coronary artery disease history of a pacemaker history of childhood polio. Patient reports she has not taken her Lasix in 2 or 3 days without not sure why. She denies any fever chills chest pain hemoptysis hematochezia melena nausea vomiting diarrhea. Related Data Home Medications ?Medication ?Instructions ?Recorded ?Confirmed alendronate 70 mg tablet 70 mg PO QWEEK Bone loss 03/1106/07/24 aspirin 81 mg tablet,delayed 81 mg PO DAILY heart heal th 12/23/17 06/07/24 release (Adult Low Dose Aspirin) baclofen 10 mg tablet 10 mg PO TID muscle spasms 1 02/22/17 06/07/24 calcium 500 mg (as 1 tab PO BID suppliment 03/1106/07/24 carbonate)-vitamin D3 5 mcg (200 unit) tablet (Os-Brodie 500 + D3) isosorbide mononitrate 60 mg 60 mg PO DAILY Chest pain 12/23/17 06/07/24 tablet,extended release 24 hr lisinopril 40 mg tablet 40 mg PO DAILY High blood pr essure 12/23/17 06/07/24 multivitamin,[id number] 1 tab PO DAILY SUPPLIMEN T 12/23/17 06/07/24 (Complete Multivitamin tablet) pantoprazole 40 mg tablet,delayed 40 mg PO BID GERD 06/07/24 release pravastatin 80 mg tablet 80 mg PO DAILY Cholesterol 1 02/22/17 06/07/24 spironolactone 25 mg tablet 12.5 mg PO DAILY fluid ret ention 12/23/17 06/07/24 hydrocodone 7.5 mg-acetaminophen 1 tab PO DIRECTED 10/19/23 06/07/24 325 mg tablet nebivolol 10 mg tablet 12.5 mg PO DIRECTED 11/2206/07/24 pregabalin 75 mg capsule (Lyrica) 75 mg PO BID Pain 06/07/24 Previous Rx's ?Medication ?Instructions ?Recorded ferrous sulfate 325 mg (65 mg 325 mg PO BID 30 days #6 0 tabs 07/24/23 iron) tablet furosemide 40 mg tablet (Lasix) 40 mg PO DAILY #7 tabs 12/31/23 sodium sul 1.479 gram-potas ch See Rx Instructions PO PER PKG DIR 05/25/24 0.188 gram-magnes sul 0.225 gram colonscopy #24 tabs tablet (Sutab) Allergies Allergy/AdvReac Type Severity Reaction Status Date / Time diltiazem (DILTIAZEM) Allergy Intermediate HEART Verified 08/10/24 19:03 RACING pheniramine (From Theraflu Allergy LIGHT Verified 08/10/24 19:03 Sinus and Cold) HEADED phenylephrine (From Theraflu Allergy LIGHT Verified 08/10/24 19:03 Sinus and Cold) HEADED [facility] <BENITO Nassar - Last Filed: 08/10/24 20:12> [facility] Disclaimer: The information contained in this section may have been updated after the patient was seen, as this information can be updated by other users. Medical History (Updated 08/10/24 @ 19:49 by BENITO Nassar) History of COVID-19 Edema Fluid retention CHF (congestive heart failure) GERD (gastroesophageal reflux disease) Neuropathy Chronic pain Anemia Bone spur of left foot Polio History of left heart catheterization (LHC) Cataract History of pacemaker History of pacemaker Hypertension Hyperlipidemia Surgical History History of surgery History of hip surgery History of shoulder surgery History of hysterectomy Family History Other Cancer Hypertension Social History (Updated 06/07/24 @ 11:23 by Yahaira Amezcua, RN) Smoking Status: Never smoker alcohol intake: never substance use type: denies use current occupational status: retired Travel in the last 8 weeks?: None household members: spouse housing: house current occupational exposures/hazards: No caffeine: Yes Have you lived/traveled outside US in past 30 days?: No Contact w/someone who lives/traveled outside US past 30 days?: No Exposure to someone with infectious disease in past 14 days?: No Do you have a fever (greater than 100.4 F or 38 C)?: Yes Have you tested positive for COVID-19?: No Exposed to someone with COVID-19 in past 14 days?: No Do you have a sore throat?: No Do you have a cough?: No Do you have any weakness?: No Do you have any diarrhea?: No Are you experiencing any unusual bleeding?: No Do you have any muscle aches/pain?: No Do you have any abdominal pain?: No Are you experiencing loss of taste or smell?: No Other Medical History Have you received the Flu Vaccine for this season: Yes Have you received the Pneumonia Vaccine: Yes <BENITO Nassar - Last Filed: 08/10/24 20:12> ROS Obtained: Yes Systems reviewed as appropriate & no additional complaints except as documented Physical Exam <BENITO Nassar - Last Filed: 08/10/24 20:12> General General appearance: alert and in no apparent distress Respiratory Respiratory exam: Present normal lung sounds bilaterally Cardiovascular Cardiovascular exam: Present regular rate Neurological Exam Neurological exam: Present alert and oriented X3 Medical Decision Making <BENITO Nassar - Last Filed: 08/10/24 20:12> Medical Records Medical records reviewed: Yes I reviewed the patient's medical records. Screening: Per USPSTF and CDC recommendations, given the prevalence of disease in our region, it is our hospital?s policy to screen for HIV and viral Hepatitis for all patients aged 18 and over and those with ongoing risk factors. Yuri Inquiry Pt receiving controlled substance: No Vital Signs: 08/10/24 17:32 08/10/24 17:37 08/10/24 18:01 Temperature 98.6 F Temperature Source Oral Pulse Rate 70 63 Pulse Rate [Right] 69 Respiratory Rate 15 18 17 Blood Pressure 177/86 H 166/70 H Blood Pressure [Right Arm] 180/80 H Blood Pressure Mean [Right Arm] 113 02 Sat by Pulse Oximetry 95 95 97 Oxygen Delivery Method Room Air Room Air Room Air 08/10/24 18:30 08/10/24 19:00 08/10/24 19:31 Temperature Temperature Source Pulse Rate 90 Pulse Rate [Right] Respiratory Rate 15 18 14 Blood Pressure 177/114 H 164/85 H 171/89 H Blood Pressure [Right Arm] Blood Pressure Mean [Right Arm] 02 Sat by Pulse Oximetry 95 Oxygen Delivery Method Room Air 08/10/24 20:00 Temperature Temperature Source Pulse Rate Pulse Rate [Right] Respiratory Rate 19 Blood Pressure 178/87 H Blood Pressure [Right Arm] Blood Pressure Mean [Right Arm] 02 Sat by Pulse Oximetry Oxygen Delivery Method Lab Data Lab results reviewed: Yes I reviewed the patient's lab results. Lab Results 08/10/24 17:23: Urine Color Yellow, Urine Appearance Clear, Urine pH 8.0, Ur Specific [place] 1.015, Urine Protein Negative, Urine Glucose (UA) Negative, Urine Ketones Negative, Urine Blood Negative, Urine Nitrate Negative, Urine Bilirubin Negative, Urine Urobilinogen 1.0, Ur Leukocyte Esterase Negative, Urine RBC 20-50, Urine WBC 5-10, Ur Squamous Epith Cells 50-100, Urine Bacteria 1+ 08/10/24 17:32: WBC 7.6, RBC 4.33, Hgb 11.5 L, Hct 37.4, MCV 86.4, MCH 26.6 L, M CHC 30.7 L, RDW 17.8 H, Plt Count 265, MPV 12.0 H, Neut % (Auto) 58.8, Lymph % (Auto) 25.9, Baker % (Auto) 12.0 H, Eos % (Auto) 2.5, Baso % (Auto) 0.4, Neut # (Auto) 4.5, Lymph # (Auto) 2.0, Baker # (Auto) 0.9, Eos # (Auto) 0.2, Baso # (Auto) 0.0, PT 11.4, INR 1.03, Sodium 144, Potassium 4.2, Chloride 113 H, Carbon Dioxide 27, Anion Gap 8.2, BUN 19 H, Creatinine 1.30 H, Estimated Creat Clear 53, Estimated GFR 39 L, Est GFR ( Amer) 48 L, Glucose 115 H, Calcium 10.1, Total Bilirubin 0.6, AST 32, ALT 17, Alkaline Phosphatase 80, Troponin I < 0.01, NT-Pro-B Natriuret Pep 1230 H, Total Protein 7.6 D, Albumin 4.1, Globulin 3.5 H, Albumin/Globulin Ratio 1.2, Procalcitonin 0.058 08/10/24 17:32 08/10/24 17:32 Orders (Tests/Meds): ED MEDICATIONS Discontinued Medications Generic Name Dose Route Start Last Admin Trade Name Freq PRN Reason Stop Dose Admin Furosemide 80 mg 08/10/24 18:13 08/10/24 18:37 Furosemide 40mg/4ml Vial IV 08/10/24 18:14 80 mg ONCE ONE Administration Iopamidol 70 ml 08/10/24 18:25 08/10/24 18:26 Iopamidol-370 (76%);100ml Bottle IV 08/10/24 18:26 70 ml ONCE ONE Administration Sodium Chloride 10 ml 08/10/24 18:25 08/10/24 18:26 Sodium Chloride 0.9% 10ml Syr (Rad Only) IV 08/10/24 18:26 10 ml ONCE ONE Administration Sodium Chloride 50 ml 08/10/24 18:25 08/10/24 18:26 0.9 % Sodium Chloride 50 Ml Vial IV 08/10/24 18:26 50 ml ONCE ONE Administration ORDERS Category Date Time Status CT angio chest PE protocol Stat Cat Scan 08/10/24 17:29 Completed POCUS Point of Care (ER Only) Stat Exams 08/10/24 17:29 Completed BNP [NT Pro Brain Natriuretic Pep.] Stat Lab 08/10/24 17:32 Completed CBC w/Auto Diff [Complete Blood Count Auto Diff] Stat Lab 08/10/24 17:32 Completed CMP [Comprehensive Metabolic Panel] Stat Lab 08/10/24 17:32 Completed INR [Prothrombin Time INR] Stat Lab 08/10/24 17:32 Completed Procalcitonin Stat Lab 08/10/24 17:32 Completed Rapid PCR Covid and Flu A/B Stat Lab 08/10/24 17:23 Received Trop I [Troponin I] Stat Lab 08/10/24 17:32 Completed Troponin I Q3H Lab 08/10/24 20:30 Ordered Troponin I Q3H Lab 08/10/24 23:30 Ordered Urinalysis and Microscopic Stat Lab 08/10/24 17:23 Completed HEART Score History (anamnesis): Slightly suspicious ECG: Normal Age: >65 years Risk factors: Atherosclerosis history Troponin: </= normal limit HEART Score: 4 Medical Decision Narrative: In summary patient is a 79-year-old female who presents to the emergency department for evaluation of dyspnea. Patient is hemodynamically stable upon arrival, afebrile. Physical exam is remarkable for well-nourished well- developed 79-year-old female is otherwise in no acute distress. Breath sounds clear and equal bilaterally to the bases without adventitious sounds or increased work of breathing. Cardiovascular S1-S2 regular rate and rhythm without murmurs gallops rubs or thrills. There is 2+ bilateral pitting edema. Abdomen soft nontender no rebound no guarding or rigidity. Bowel sounds normoactive.. Differential diagnosis includes CHF exacerbation versus PE versus ACS versus urinary tract infection etc. Initial workup will be conducted with hematologic labs urinalysis twelve-lead EKG CT PE protocol POCUS. Initial interventions are deferred due to conflicting modalities with her Lasix or fluid is needed. Initial workup reviewed by me shows patient white count 7.6 hemoglobin and hematocrit 11.5 and 37.4 respectively absolute neutrophil count is 4.5 INR is 1.03 chlorides 113 BUN is 19 creatinine is 1.3 GFR is 39 glucose 115 initial troponin is undetectable at less than 0.01 NT proBNP is 1230 procalcitonin is 0.058 urinalysis is contaminated with 50-100 squamous epithelial cells and only 1+ bacteria in my informal interpretation of her CT PE protocol shows no evidence of thrombus but does show evidence of pulmonary edema given this I have given the patient a dose of 80 of Lasix IV. Upon repeat evaluation reports objective improvement after diuresing. Given this patient is appropriate for discharge with instructions to double up her Lasix and follow-up with cardiology within 48 hours for recheck and should she have any worsening or new signs and symptoms to follow-up sooner with her PCP return to the ER as needed. <Moses Vera MD - Last Filed: 08/10/24 20:21> Vital Signs: 08/10/24 17:32 08/10/24 17:37 08/10/24 18:01 Temperature 98.6 F Temperature Source Oral Pulse Rate 70 63 Pulse Rate [Right] 69 Respiratory Rate 15 18 17 Blood Pressure 177/86 H 166/70 H Blood Pressure [Right Arm] 180/80 H Blood Pressure Mean [Right Arm] 113 02 Sat by Pulse Oximetry 95 95 97 Oxygen Delivery Method Room Air Room Air Room Air 08/10/24 18:30 08/10/24 19:00 08/10/24 19:31 Temperature Temperature Source Pulse Rate 90 Pulse Rate [Right] Respiratory Rate 15 18 14 Blood Pressure 177/114 H 164/85 H 171/89 H Blood Pressure [Right Arm] Blood Pressure Mean [Right Arm] 02 Sat by Pulse Oximetry 95 Oxygen Delivery Method Room Air 08/10/24 20:00 Temperature Temperature Source Pulse Rate Pulse Rate [Right] Respiratory Rate 19 Blood Pressure 178/87 H Blood Pressure [Right Arm] Blood Pressure Mean [Right Arm] 02 Sat by Pulse Oximetry Oxygen Delivery Method Lab Data Lab Results 08/10/24 17:23: Urine Color Yellow, Urine Appearance Clear, Urine pH 8.0, Ur Specific [place] 1.015, Urine Protein Negative, Urine Glucose (UA) Negative, Urine Ketones Negative, Urine Blood Negative, Urine Nitrate Negative, Urine Bilirubin Negative, Urine Urobilinogen 1.0, Ur Leukocyte Esterase Negative, Urine RBC 20-50, Urine WBC 5-10, Ur Squamous Epith Cells 50-100, Urine Bacteria 1+ 08/10/24 17:32: WBC 7.6, RBC 4.33, Hgb 11.5 L, Hct 37.4, MCV 86.4, MCH 26.6 L, M CHC 30.7 L, RDW 17.8 H, Plt Count 265, MPV 12.0 H, Neut % (Auto) 58.8, Lymph % (Auto) 25.9, Baker % (Auto) 12.0 H, Eos % (Auto) 2.5, Baso % (Auto) 0.4, Neut # (Auto) 4.5, Lymph # (Auto) 2.0, Baker # (Auto) 0.9, Eos # (Auto) 0.2, Baso # (Auto) 0.0, PT 11.4, INR 1.03, Sodium 144, Potassium 4.2, Chloride 113 H, Carbon Dioxide 27, Anion Gap 8.2, BUN 19 H, Creatinine 1.30 H, Estimated Creat Clear 53, Estimated GFR 39 L, Est GFR ( Amer) 48 L, Glucose 115 H, Calcium 10.1, Total Bilirubin 0.6, AST 32, ALT 17, Alkaline Phosphatase 80, Troponin I < 0.01, NT-Pro-B Natriuret Pep 1230 H, Total Protein 7.6 D, Albumin 4.1, Globulin 3.5 H, Albumin/Globulin Ratio 1.2, Procalcitonin 0.058 Orders (Tests/Meds): ED MEDICATIONS Discontinued Medications Generic Name Dose Route Start Last Admin Trade Name Freq PRN Reason Stop Dose Admin Furosemide 80 mg 08/10/24 18:13 08/10/24 18:37 Furosemide 40mg/4ml Vial IV 08/10/24 18:14 80 mg ONCE ONE Administration Iopamidol 70 ml 08/10/24 18:25 08/10/24 18:26 Iopamidol-370 (76%);100ml Bottle IV 08/10/24 18:26 70 ml ONCE ONE Administration Sodium Chloride 10 ml 08/10/24 18:25 08/10/24 18:26 Sodium Chloride 0.9% 10ml Syr (Rad Only) IV 08/10/24 18:26 10 ml ONCE ONE Administration Sodium Chloride 50 ml 08/10/24 18:25 08/10/24 18:26 0.9 % Sodium Chloride 50 Ml Vial IV 08/10/24 18:26 50 ml ONCE ONE Administration ORDERS Category Date Time Status CT angio chest PE protocol Stat Cat Scan 08/10/24 17:29 Completed POCUS Point of Care (ER Only) Stat Exams 08/10/24 17:29 Completed BNP [NT Pro Brain Natriuretic Pep.] Stat Lab 08/10/24 17:32 Completed CBC w/Auto Diff [Complete Blood Count Auto Diff] Stat Lab 08/10/24 17:32 Completed CMP [Comprehensive Metabolic Panel] Stat Lab 08/10/24 17:32 Completed INR [Prothrombin Time INR] Stat Lab 08/10/24 17:32 Completed Procalcitonin Stat Lab 08/10/24 17:32 Completed Rapid PCR Covid and Flu A/B Stat Lab 08/10/24 17:23 Received Trop I [Troponin I] Stat Lab 08/10/24 17:32 Completed Troponin I Q3H Lab 08/10/24 20:30 Ordered Troponin I Q3H Lab 08/10/24 23:30 Ordered Urinalysis and Microscopic Stat Lab 08/10/24 17:23 Completed ECG Data Tracing #1: Independently interpreted by me rate of 71, rhythm is regular, axis is normal, no ST elevation in anatomical contiguous leads, QTc 404 HEART Score HEART Score: 4 Medical Decision Narrative: In summary patient is a 79-year-old female who presents to the emergency department for evaluation of dyspnea. Patient is hemodynamically stable upon arrival, afebrile. Physical exam is remarkable for well-nourished well- developed 79-year-old female is otherwise in no acute distress. Breath sounds clear and equal bilaterally to the bases without adventitious sounds or increased work of breathing. Cardiovascular S1-S2 regular rate and rhythm without murmurs gallops rubs or thrills. There is 2+ bilateral pitting edema. Abdomen soft nontender no rebound no guarding or rigidity. Bowel sounds normoactive.. Differential diagnosis includes CHF exacerbation versus PE versus ACS versus urinary tract infection etc. Initial workup will be conducted with hematologic labs urinalysis twelve-lead EKG CT PE protocol POCUS. Initial interventions are deferred due to conflicting modalities with her Lasix or fluid is needed. Initial workup reviewed by me shows patient white count 7.6 hemoglobin and hematocrit 11.5 and 37.4 respectively absolute neutrophil count is 4.5 INR is 1.03 chlorides 113 BUN is 19 creatinine is 1.3 GFR is 39 glucose 115 initial troponin is undetectable at less than 0.01 NT proBNP is 1230 procalcitonin is 0.058 urinalysis is contaminated with 50-100 squamous epithelial cells and only 1+ bacteria in my informal interpretation of her CT PE protocol shows no evidence of thrombus but does show evidence of pulmonary edema given this I have given the patient a dose of 80 of Lasix IV. Upon repeat evaluation reports objective improvement after diuresing. Given this patient is appropriate for discharge with instructions to double up her Lasix and follow-up with cardiology within 48 hours for recheck and should she have any worsening or new signs and symptoms to follow-up sooner with her PCP return to the ER as needed. I was consulted by the SUELLEN, and we discussed the complexity of the problems being addressed. I approved the treatment and management plan for this patient's care in the emergency department, thus performing a substantive portion of the medical decision making. Moses Vera MD Critical Care <BENITO Nassar - Last Filed: 08/10/24 20:12> Critical Care Time Critical Care Time: Yes Attestation: On 08/10/24, the high probability of a clinically significant, sudden or life threatening deterioration of the following system(s) required my full and direct attention, intervention and personal management. The time I documented below is in addition to time spent performing reported procedures but includes the following listed in this critical care notation. Total Time Total Critical Care Time: 30
--- NOTE | 2024-08-10 17:20 | ECG_ITS ---
APPROVED REPORT Exam: Resting ECG HR:71 bpm ECG Measurements Heart Rate [address] 165 P 72 QRSd 85 QRS 33 QT 382 T 58 QTc 404 Conclusion SINUS RHYTHM LOW QRS VOLTAGE IN PRECORDIAL LEADS [QRS DEFLECTION < 1.0 mV IN CHEST LEADS] BORDERLINE ECG Electronically signed by : FREDERIC BRISENO, 08/10/2024 23:40:24
--- OUTSIDE RECORDS SUMMARY | 2024-08-10 17:24 | XMS_ITS | Encounter Summary ---
Author Organization [facility] Address [address] [place] [address] Care Team Providers Care Livestock Farmworker Name Role Phone Jose Mendoza MD Primary Care Provider + [phone] Encounter Details Date Type Department Care Team (Latest Contact Info) Description 07/10/2024 Travel Social History Tobacco Use Types Packs/Day Years [...] any time in the past 12 m [facility], were you homeless or living in a [facility] (including now)? No 07/11/2024 Utilities Answer Date Recorded In the past 12 months has th e electric, gas, oil, or water company [...] (Lifetime) No 07/10/2024 12:47 PM EDT Shalini Bowman RN documented as of this encounter Plan of Treatment Upcoming Encounters Date Type Department Care Team (Late st Contact Info) Description 08/15/2024 3:00 PM EDT Office Visit [facility] [address] [place] [address] Mata Smalls MD [address] [place] [address] documented as of this encounter Visit Diagnoses Not on filedocumented in this encounter Additional Health Concerns Assessment Noted Time A fall risk assessment has been complete d for the patient 06/20/2024 1:33 PM EDT A Body Mass Index follow-up plan has been documented for the patient 07/15/2024 3:46 PM EDT documented as of this encounter Care Teams Livestock Farmworker Relationship Specialty Start Date End Date Jose Mendoza MD [address] [place] [address] [place] [address] PCP - General Internal Medicine 05/23/24 documented as of this encounter
--- OUTSIDE RECORDS SUMMARY | 2024-08-10 17:24 | XMS_ITS | Encounter Summary ---
Author Organization [facility] Address [address] [place] [address] Care Team Providers Care Coffee Brewer Name Role Phone Jose Mendoza MD Primary Care Provider [phone] Encounter Details Date Type Department Care Team (Late st Contact Info) Description 06/23/2024 Telephone [facility] [address] [place] [address] Mata Smalls MD [address] [facility] [address] [place] [address] Social History Tobacco Use Types Packs/Day Years [...] on file documented as of this encounter Miscellaneous Notes * Telephone Encounter - Amber Goel RN - 06/23/2024 4:07 PM EDT Managed via separate encounter. * Telephone Encounter - Jimmy Antony - 06/23/2024 3:32 PM EDT Patient Phone Message Reason for Call: Ms. Stone is calling to get her CT results if someone could give her a call back Best contact number and optimal time of day to reach caller: [phone] Note: Please do not reply to this message. Follow-up communication and further actions as a result of this message need to be communicated with the patient directly, if the patient is not active onMyChart. If the patient is active on MyChart, they will receive notification of the communication/outcome via MyChart. documented in this encounter Plan of Treatment Upcoming Encounters Date Type Department Care Team (Late st Contact Info) Description 08/15/2024 3:00 PM EDT Office Visit [facility] [address] [place] [address] Mata Smalls MD [address] [facility] [address] [place] [address] documented as of this encounter Visit Diagnoses Not on filedocumented in this encounter Additional Health Concerns Assessment Noted Time A fall risk assessment has been complete d for the patient 06/20/2024 1:33 PM EDT A Body Mass Index follow-up plan has been documented for the patient 06/28/2024 4:06 PM EDT documented as of this encounter Care Teams Coffee Brewer Relationship Specialty Start Date End Date Jose Mendoza MD [address] [place] [address] PCP - General Internal Medicine 05/23/24 documented as of this encounter
--- OUTSIDE RECORDS SUMMARY | 2024-08-10 17:24 | XMS_ITS | Encounter Summary ---
Author Organization Healthcare Address [address] [place] [address] Care Team Providers Care [employer] Name Role Phone Jose Mendoza MD Primary Care Provider [phone] Encounter Details Date Type Department Care Team (Late st Contact Info) Description 06/27/2024 Telephone [facility] [address] [place] [address] Mata Smalls MD [address] [facility] [address] [place] [address] Social History Tobacco Use Types Packs/Day Years [...] encounter Miscellaneous Notes * Telephone Encounter - Milla Richardson - 06/27/2024 8:31 AM EDT Patient Phone Message Reason for Call: Patient calling for results of CT scan she did a week ago. Best contact number and optimal time of day to reach caller: [phone] Note: Please do not reply to this [...] Description 08/15/2024 3:00 PM EDT Office Visit [facility] Multidisciplinary Oncology Clinic [address] [place] [address] Mata Smalls MD [address] [place] [address] documented as of this encounter Visit Diagnoses Not on filedocumented in this encounter Additional Health Concerns Assessment Noted Time A fall risk assessment has been complete d for the patient 06/20/2024 1:33 PM EDT A Body Mass Index follow-up plan has been documented for the patient 06/28/2024 4:06 PM EDT documented as of this encounter Care Teams [employer] Relationship Specialty Start Date End Date Jose Mendoza MD [address] [place] [address] PCP - General Internal Medicine 05/23/24 documented as of this encounter
--- OUTSIDE RECORDS SUMMARY | 2024-08-10 17:25 | XMS_ITS | Patient Health Record ---
Author Organization [facility] Address [address] [place] [address] Care Team Providers Care Practical Nursing Instructor Name Role Phone Jose Mendoza Primary Care Provider [phone] Gifty Amezcua Unavailable [phone] Telma Francois Unavailable [phone] Migration, Provider Unavailable Unavailable Allergies Allergen (clinical drug ingredient) Drug/Non Drug Allergy documented on EMR Reaction Allergy Type Onset Date Status oseltamivir Tamiflu dizziness Drug Allergy Activ e Results Component Value Reference Range Notes CT Scan : Chest, Without Con trast Reviewed date:11/18/2023 02:43:29 PM Interpretation: Performing Lab: Notes/Report: B-TYPE NATRIURETIC PEPTIDE B FLORICULTURIST Reviewed date:10/15/2023 11:39:28 AM Interpretation: Performing Lab: Notes/Report: B-TYPE NATRIURETIC PEPTIDE BNP 167.0 0.0-100 pg/mL Non-CHF: Less than 100 pg/mL Class I: Greater than 100 pg/mL - Patients have no limitations of physical activity and have no symptoms with ordinary physical activity. Class II: Greater than 221 pg/mL - Patients have a slight limitation of physical activity and have symptoms with ordinary physical activity. Class III: Greater than 459 pg/mL - Patients have a marked limitation of physical activity and have symptoms with less than ordinary physical activity, but not at rest. Class IV : Greater than 1006 pg/mL -Patients are unable to perform any physical activity without discomfort. Note Unless otherwise noted testing performed at: [facility] [address] [place] [address] Aleksandr Orosco MD CLIA: [id number] CBC AUTO NO DIFF (HEMOGRAM) Reviewed date:10/15/2023 12:52:07 PM Interpretation: Performing Lab: Notes/Report: WBC 7.0 4.5-11.5 10 RBC 3.30 4.25-5.57 10 HGB 9.5 12.0-15.7 g/dL HCT 30.5 36.0-47.0 % MCV 92.4 80-95 fl MCH 28.8 27.0-34.0 pg MCHC 31.1 32.0-36.0 g/dL PLATELET COUNT 243 150-450 10 RDW 17.4 12.3-15.1 % MPV 11.0 7.4-10.4 fl Note Unless otherwise noted testing performed at: [place] [id number] Aleksandr Orosco MD CLIA: [id number] Rapid Covid/Flu A-B Combo Reviewed date:11/01/2023 12:31:28 PM Interpretation: Performing Lab: Notes/Report: Rapid Covid pos Flu A neg Flu B neg LIPID PANEL, STANDARD (7600) Reviewed date:03/09/2024 10:11:58 AM Interpretation: Performing Lab:CB, [employer] [employer], [facility] CenterRscsTX[address] Dewayne Tamayo Notes/Report: FASTING: NO FASTING:NO NON-FASTING; NON-FASTING CHOLESTEROL, TOTAL 159 <200 mg/dL HDL CHOLESTEROL 61 > OR = 50 mg/dL TRIGLYCERIDES 141 <150 mg/dL LDL-CHOLESTEROL 76 Reference range: <100 Desirable range <100 mg/dL for primary prevention; <70 mg/dL for patients with CHD or diabetic patients with > or = 2 CHD risk factors. LDL-C is now calculated using the Alonzo-Isamar calculation, which is a validated novel method providing better accuracy than the Friedewald equation in the estimation of LDL-C. Alonzo REYES et al. RITA. 2013;310(19): 8652-1269 (http://education.[employer].com/faq/TZB498) CHOL/HDLC RATIO 2.6 <5.0 (calc) NON HDL CHOLESTEROL 98 <130 mg/dL (calc) For patients with diabetes plus 1 major ASCVD risk factor, treating to a non-HDL-C goal of <100 mg/dL (LDL-C of <70 mg/dL) is considered a therapeutic option. COMPREHENSIVE METABOLIC PANE L (03944) Reviewed date:03/09/2024 10:11:59 AM Interpretation: Performing Lab:JOANN [employer] [id number] Standard TreasuryteNXTM, [facility] CenterPahwXL[address] Dewayne Tamayo Notes/Report: FASTING: NO FASTING:NO NON-FASTING; NON-FASTING GLUCOSE 99 65-139 mg/dL Non-fasting reference interval UREA NITROGEN (BUN) 28 7-25 mg/dL CREATININE 1.59 0.60-0.95 mg/dL EGFR 33 > OR = 60 mL/min/1.73m2 BUN/CREATININE RATIO 18 6-22 (calc) SODIUM 145 135-146 mmol/L POTASSIUM 4.5 3.5-5.3 mmol/L CHLORIDE 107 98-110 mmol/L CARBON DIOXIDE 26 20-32 mmol/L CALCIUM 8.9 8.6-10.4 mg/dL PROTEIN, TOTAL 6.1 6.1-8.1 g/dL ALBUMIN 3.8 3.6-5.1 g/dL GLOBULIN 2.3 1.9-3.7 g/dL (calc) ALBUMIN/GLOBULIN RATIO 1.7 1.0-2.5 (calc) BILIRUBIN, TOTAL 0.2 0.2-1.2 mg/dL ALKALINE PHOSPHATASE 72 37-153 U/L AST 17 10-35 U/L ALT 12 6-29 U/L BASIC METABOLIC PANEL (97921 ) Reviewed date:10/01/2023 03:31:16 PM Interpretation: Performing Lab:JOANN [employer] [id number] Standard TreasuryteIMNEXT [facility], [facility] CenterTplwIZ[address] Dewayne Tamayo Notes/Report: GLUCOSE 99 65-99 mg/dL Fasting reference interval UREA NITROGEN (BUN) 34 7-25 mg/dL CREATININE 1.58 0.60-0.95 mg/dL EGFR 33 > OR = 60 mL/min/1.73m2 BUN/CREATININE RATIO 22 6-22 (calc) SODIUM 144 135-146 mmol/L POTASSIUM 5.0 3.5-5.3 mmol/L CHLORIDE 109 98-110 mmol/L CARBON DIOXIDE 27 20-32 mmol/L CALCIUM 9.5 8.6-10.4 mg/dL CBC (INCLUDES DIFF/PLT) (289 9) Reviewed date:10/01/2023 03:31:16 PM Interpretation: Performing Lab:JOANN [employer] [id number] [employer], [facility] CenterIwclIB[address] Dewayne Tamayo Notes/Report: WHITE BLOOD CELL COUNT 7.3 3.8-10.8 Thousand/ uL RED BLOOD CELL COUNT 3.72 3.80-5.10 Million/uL HEMOGLOBIN 10.4 11.7-15.5 g/dL HEMATOCRIT 34.2 35.0-45.0 % MCV 91.9 80.0-100.0 fL MCH 28.0 27.0-33.0 pg MCHC 30.4 32.0-36.0 g/dL RDW 16.6 11.0-15.0 % PLATELET COUNT 255 140-400 Thousand/uL MPV 12.0 7.5-12.5 fL ABSOLUTE NEUTROPHILS [phone] cells/uL ABSOLUTE LYMPHOCYTES 2248 850-3900 cells/uL ABSOLUTE MONOCYTES 767 200-950 cells/uL ABSOLUTE EOSINOPHILS 153 15-500 cells/uL ABSOLUTE BASOPHILS 29 0-200 cells/uL NEUTROPHILS 56.2 LYMPHOCYTES 30.8 MONOCYTES 10.5 EOSINOPHILS 2.1 BASOPHILS 0.4 M-Cortisol Reviewed date:12/11/2023 09:45:44 AM Interpretation: Performing Lab: Notes/Report: FASTING TANK 10.5 6.2-19.4 ug/dL Please Note: The reference interval and flagging for this test is for an AM collection. If this is a PM collection please use: Cortisol PM: 2.3-11.9 Performed at: - [facility] [id number] Pigs Feet Finisher: Lopez Chauhan PhD, Phone: [phone] CT Scan : Abdomen and Pelvis with and without contrast Reviewed date:12/08/2023 10:57:53 AM Interpretation: Performing Lab: Notes/Report: COMPREHENSIVE METABOLIC PANE L (42376) Reviewed date:10/19/2023 04:41:08 PM Interpretation: Performing Lab:JOANN [employer] [id number], [facility] CenterLxwrXZ[address] Dewayne Tamayo Notes/Report: NON-FASTING; NON-FASTING; NON-FASTING GLUCOSE 125 65-99 mg/dL Fasting reference interval For someone without known diabetes, a glucose value between 100 and 125 mg/dL is consistent with prediabetes and should be confirmed with a follow-up test. UREA NITROGEN (BUN) 19 7-25 mg/dL CREATININE 1.34 0.60-0.95 mg/dL EGFR 40 > OR = 60 mL/min/1.73m2 BUN/CREATININE RATIO 14 6-22 (calc) SODIUM 144 135-146 mmol/L POTASSIUM 4.3 3.5-5.3 mmol/L CHLORIDE 109 98-110 mmol/L CARBON DIOXIDE 26 20-32 mmol/L CALCIUM 9.0 8.6-10.4 mg/dL PROTEIN, TOTAL 5.8 6.1-8.1 g/dL ALBUMIN 3.5 3.6-5.1 g/dL GLOBULIN 2.3 1.9-3.7 g/dL (calc) ALBUMIN/GLOBULIN RATIO 1.5 1.0-2.5 (calc) BILIRUBIN, TOTAL 0.3 0.2-1.2 mg/dL ALKALINE PHOSPHATASE 67 37-153 U/L AST 16 10-35 U/L ALT 11 6-29 U/L CBC (INCLUDES DIFF/PLT) (639 9) Reviewed date:10/19/2023 04:41:08 PM Interpretation: Performing Lab:JOANN, [facility] [id number] [facility] Dewayne Tamayo Notes/Report: NON-FASTING; NON-FASTING; NON-FASTING WHITE BLOOD CELL COUNT 7.9 3.8-10.8 Thousand/ uL RED BLOOD CELL COUNT 3.19 3.80-5.10 Million/uL HEMOGLOBIN 9.0 11.7-15.5 g/dL HEMATOCRIT 29.9 35.0-45.0 % MCV 93.7 80.0-100.0 fL MCH 28.2 27.0-33.0 pg MCHC 30.1 32.0-36.0 g/dL RDW 14.7 11.0-15.0 % PLATELET COUNT 232 140-400 Thousand/uL MPV 12.5 7.5-12.5 fL ABSOLUTE NEUTROPHILS 5064 7469-9036 cells/uL ABSOLUTE LYMPHOCYTES 7144 240-2047 cells/uL ABSOLUTE MONOCYTES 932 200-950 cells/uL ABSOLUTE EOSINOPHILS 182 15-500 cells/uL ABSOLUTE BASOPHILS 32 0-200 cells/uL NEUTROPHILS 64.1 LYMPHOCYTES 21.4 MONOCYTES 11.8 EOSINOPHILS 2.3 BASOPHILS 0.4 D-DIMER, QUANTITATIVE (8659) Reviewed date:10/19/2023 04:41:08 PM Interpretation: Performing Lab:JOANN [employer] [id number] Standard Treasurytel [employer], Phthisis DiagnosticsEdquZQ[address] Dewayne Tamayo Notes/Report: NON-FASTING; NON-FASTING; NON-FASTING D-DIMER, QUANTITATIVE 0.32 <0.50 mcg/mL FEU The D-Dimer test is used frequently to exclude an acute PE or DVT. In patients with a low to moderate clinical risk assessment and a D-Dimer result <0.50 mcg/mL FEU, the likelihood of a PE or DVT is very low. However, a thromboembolic event should not be excluded solely on the basis of the D-Dimer level. Increased levels of D-Dimer are associated with a PE, DVT, DIC, malignancies, inflammation, sepsis, surgery, trauma, , and advancing patient age. [Rita 2006 11:295(2):199-207] For additional information, please refer to: http://education.[employer]/faq/SAI475 (This link is being provided for informational/ educational purposes only) TSH (899) Reviewed date:10/19/2023 04:41:08 PM Interpretation: Performing Lab:JOANN [employer] [id number] [employer], Phthisis DiagnosticsTdbnIA[address] Dewayne Tamayo Notes/Report: NON-FASTING; NON-FASTING; NON-FASTING TSH 0.76 0.40-4.50 mIU/L B TYPE NATRIURETIC PEPTIDE ( BNP) (14025) Reviewed date:10/19/2023 04:41:09 PM Interpretation: Performing Lab:JOANN [employer]AddMyBeste1355 [address] [employer], Phthisis DiagnosticsIxnjBZ[address] Dewayne Tamayo Notes/Report: NON-FASTING; NON-FASTING; NON-FASTING B TYPE NATRIURETIC PEPTIDE (BNP) 240 <100 pg/mL BNP levels increase with age in the general population with the highest values seen in individuals greater than 75 years of age. Reference: J. Am. Wisam. Cardiol. 2002; 40:976-982. IRON, TIBC AND FERRITIN PANE L (5616) Reviewed date:03/27/2024 10:28:09 AM Interpretation: Performing Lab:JOANN [employer] [id number] [employer] [facility] LLCHoboken [facility], [facility] CenterUqevAE[address] Dewayne Tamayo Notes/Report: FASTING: NO FASTING:NO NON-FASTING; NON-FASTING; NON-FASTING; NON-FASTING; NON-FAST IRON, TOTAL 26 45-160 mcg/dL IRON BINDING CAPACITY 348 250-450 mcg/dL (marielos c) % SATURATION 7 16-45 % (calc) FERRITIN 51 16-288 ng/mL COMPREHENSIVE METABOLIC PANE L (88919) Reviewed date:03/27/2024 10:28:09 AM Interpretation: Performing Lab:JOANN [facility] [id number] [facility] Mush[facility] LLCHoboken University Medical Center, [facility] CenterQazfXF[address] Dewayne Tamayo Notes/Report: NON-FASTING; NON-FASTING; NON-FASTING; NON-FASTING; NON-FAST FASTING:NO FASTING: NO GLUCOSE 92 65-139 mg/dL Non-fasting reference interval UREA NITROGEN (BUN) 21 7-25 mg/dL CREATININE 1.33 0.60-0.95 mg/dL EGFR 40 > OR = 60 mL/min/1.73m2 BUN/CREATININE RATIO 16 6-22 (calc) SODIUM 143 135-146 mmol/L POTASSIUM 4.3 3.5-5.3 mmol/L CHLORIDE 109 98-110 mmol/L CARBON DIOXIDE 24 20-32 mmol/L CALCIUM 9.1 8.6-10.4 mg/dL PROTEIN, TOTAL 5.9 6.1-8.1 g/dL ALBUMIN 3.6 3.6-5.1 g/dL GLOBULIN 2.3 1.9-3.7 g/dL (calc) ALBUMIN/GLOBULIN RATIO 1.6 1.0-2.5 (calc) BILIRUBIN, TOTAL 0.3 0.2-1.2 mg/dL ALKALINE PHOSPHATASE 64 37-153 U/L AST 19 10-35 U/L ALT 12 6-29 U/L CBC (INCLUDES DIFF/PLT) (639 9) Reviewed date:03/27/2024 10:28:09 AM Interpretation: Performing Lab:JOANN [employer] [id number] [address] [facility], [facility] CenterJfdeZS[address] Dewayne Tamayo Notes/Report: NON-FASTING; NON-FASTING; NON-FASTING; NON-FASTING; NON-FAST FASTING:NO FASTING: NO WHITE BLOOD CELL COUNT 6.2 3.8-10.8 Thousand/ uL RED BLOOD CELL COUNT 2.95 3.80-5.10 Million/uL HEMOGLOBIN 8.2 11.7-15.5 g/dL HEMATOCRIT 28.1 35.0-45.0 % MCV 95.3 80.0-100.0 fL MCH 27.8 27.0-33.0 pg MCHC 29.2 32.0-36.0 g/dL For adults, a slight decrease in the calculated MCHC value (in the range of 30 to 32 g/dL) is most likely not clinically significant; however, it should be interpreted with caution in correlation with other red cell parameters and the patient's clinical condition. RDW 13.5 11.0-15.0 % PLATELET COUNT 270 140-400 Thousand/uL MPV 12.6 7.5-12.5 fL ABSOLUTE NEUTROPHILS 3577 2848-7244 cells/uL ABSOLUTE LYMPHOCYTES 4836 106-7657 cells/uL ABSOLUTE MONOCYTES 794 200-950 cells/uL ABSOLUTE EOSINOPHILS 167 15-500 cells/uL ABSOLUTE BASOPHILS 31 0-200 cells/uL NEUTROPHILS 57.7 LYMPHOCYTES 26.3 MONOCYTES 12.8 EOSINOPHILS 2.7 BASOPHILS 0.5 RETICULOCYTE COUNT (793) Reviewed date:03/27/2024 10:28:09 AM Interpretation: Performing Lab:JOANN [employer] [id number], [facility] CenterXbphFJ[address] Dewayne Tamayo Notes/Report: NON-FASTING; NON-FASTING; NON-FASTING; NON-FASTING; NON-FAST FASTING:NO FASTING: NO RETICULOCYTE COUNT, AUTOMATED 4.9 RETICULOCYTE, ABSOLUTE [id number] [address] cells/ uL VITAMIN B12/FOLATE, SERUM PA JENNIFER (7517) Reviewed date:03/27/2024 10:28:09 AM Interpretation: Performing Lab:JOANN [employer] Sy[address], [facility] CenterVgvjGT[address] Dewayne Tamayo Notes/Report: NON-FASTING; NON-FASTING; NON-FASTING; NON-FASTING; NON-FAST FASTING:NO FASTING: NO VITAMIN B12 213 173-5374 pg/mL Please Note: Although the reference range [...] Range Low: <3.4 Borderline: 3.4-5.4 Normal: >5.4 Medications Medication SIG (Take, Route, Frequency, Duration) Notes Start Date End Date Status Peridex 0.12 % 15 mL orally 2 times a day for 30 days 12/31/2022 Active Pantoprazole Sodium 40 MG 1 tab(s) orally twice a day for 90 days Active Fluticasone Propionate 50 MCG/ACT 1 spray(s) in each nostril 2 times a day for 30 days 06/23/2023 Active HYDROcodone-Acetamino phen 7.5-325 MG 1 tab(s) orally every 6 hours for 30 days 07/10/2024 Active Baclofen 10 MG 1 tab(s) orally 3 times a day for 90 days Active Isosorbide Mononitrate ER 60 MG 1 tab(s) orally once a day (in the morning) for 90 days Active Alendronate Sodium 70 MG 1 tab(s) orally once a week for 90 days Active Xarelto 20 MG 1 tab(s) orally once a day (in the evening) for 90 days Active Multivitamin MULTIPLE VITAMINS 1 CAP(S) ORALLY ONCE A DAY *Please review and pick correct strength-formulatio n from [facility] options. If intended option is not shown, discontinue and re-order from Quick Search* Active Pravastatin Sodium 80 MG 1 tab(s) orally once a day for 90 days Active Methocarbamol 500 MG 1-2 tab(s) orally 3 times a day for 5 day(s) 03/26/2020 Active Lisinopril 20 MG 1 tab(s) orally once a day for 90 days Active Aspirin 81 MG 1 tab(s) orally once a day Active OS-MARIELOS 500 1250 MG 1 TAB(S) ORALLY BID [...] for e-prescription and drug interaction check* Active Triamcinolone Acetonide 0.5 % 1 emigdio applied topically 2 times a day for 7 days 09/16/2023 Active FeroSul 325 (65 Fe) MG TAKE 1 TABLET TWICE DAILY for 90 Active Immunizations Vaccine Route Administration Date Status Comme nts Covid Yokasta Unknown 12/26/2020 Administered Covid Yokasta Unknown 05/02/2020 Administered Fluzone High Dose IM Intramuscular 11/26/2016 Administered Fluvirin--Influenza vaccine 3+ year IM Intramuscular 11/24/2013 Administered Influenza (Fluzone)--Medicare only IM Intramuscular 11/15/2015 Administered Influenza (Fluzone)--Medicare only IM Intramuscular 12/03/2014 Administered Pneumovax-23 (pneumococccal vaccine polyvalent)2 years or older IM Intramuscular 11/01/2013 Administered Prevnar PCV-13 (Pneumococcal conjugate 13) IM Intramuscular 01/22/2015 Administered Fluzone High Dose IM Intramuscular 12/08/2022 Administered Fluzone High Dose IM Intramuscular 11/25/2021 Administered Fluzone High Dose IM Intramuscular 12/10/2020 Administered Fluzone High Dose IM Intramuscular 11/28/2019 Administered Fluzone High Dose IM Intramuscular 11/29/2018 Administered Fluvirin--Influenza vaccine 3+ year IM Intramuscular 11/23/2012 Administered Adacel (Tdap) Unknown 04/23/2015 Administered Prevnar PCV-20 (Pneumococcal conjugate 20) IM Intramuscular 08/26/2021 Administered Fluzone High Dose IM Intramuscular 11/23/2017 Administered Fluzone High Dose IM Intramuscular 11/30/2023 Administered Problems Problem Type SNOMED Code ICD Code Onset Dates Problem Status W/U Status Risk Notes Problem 867236089 Chronic pain syndrome (G89.4) Active confirmed Problem 965342050 Overactive bladd er (N32.81) Active confirmed Problem 88918782 Urge incontinenc e (N39.41) Active confirmed Problem 96679658 HTN (hypertensio n) (I10) Active confirmed Problem 26286122 Vitamin D defici ency (E55.9) Active confirmed Problem 56172157 Osteoporosis (M81.0) Active confirmed Problem 456128371 Hyperlipemia, idiopathic familial (E78.5) Active confirmed Problem 877692259 Mild cognitive impairment (G31.84) Active confirmed Problem 991066532 GERD without esophagitis (K21.9) Active confirmed Problem 090457259 Lymphedema (I89.0) Active confirmed Problem 765998295 BMI 34.0-34.9,ad ult (Z68.34) Active confirmed Problem 48292112 Other chronic pa in (G89.29) Active confirmed Problem 585414826 Status cardiac pacemaker (Z95.0) Active confirmed Problem 4488720082242 Atherosclerosis of makah coronary artery of makah heart without angina pectoris (I25.10) Active confirmed Problem 81841375 Memory loss (R41.3) Active confirmed Problem 667057080 Primary osteoarthritis involving multiple joints (M15.0) Active confirmed Problem 49182438 Urinary incontinence, urge (N39.41) Active confirmed Problem 25117434 Sacroiliitis (M46.1) Active confirmed Problem 74689263 Iron deficiency anemia, unspecified iron deficiency anemia type (D50.9) Active confirmed Problem 366997666 BMI 35.0-35.9,ad ult (Z68.35) Active confirmed Problem 974837428 Diastolic CHF, chronic (I50.32) Active confirmed Problem 109290531 Chronic anemia (D64.9) Active confirmed Problem 744753050 Adenocarcinoma, colon (C18.9) Active confirmed Problem 940799353 Arthritis of kne e (M17.10) Active confirmed Problem 584598955 Gastroesophageal reflux disease with esophagitis without hemorrhage (K21.00) Active confirmed Problem 049821915 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) Active confirmed Vital Signs Heart Rate 72 /min 07/20/2024 Temperature 98.4 degrees Fahrenheit 07/20/2024 Oximetry 98 10/18/2023 Blood pressure diastolic 74 mm Hg 07/20/2024 Height 5 ft 3 in in 07/20/2024 Blood pressure systolic 118 mm Hg 07/20/2024 Weight 224 lbs 07/20/2024 BMI 39.68 kg/m2 07/20/2024 Encounters Encounter Location Date Provider Diagnosis [facility] [address] [place] [address] 05/27/2024 Provider Migration Chronic pain syndrome G89.4 and Bronchitis J40 [facility] [address] [address] 08/19/2023 Jose Mendoza Primary osteoarthrit is involving multiple joints M15.0 ; Chronic pain syndrome G89.4 and Iron deficiency anemia, unspecified iron deficiency anemia type D50.9 [facility] [address] [address] 09/16/2023 Jose Mendoza Primary osteoarthrit is involving multiple joints M15.0 ; Chronic pain syndrome G89.4 and Peripheral edema R60.0 [facility] [address] [address] 09/30/2023 Jose Mendoza Iron deficiency anem ia, unspecified iron deficiency anemia type D50.9 ; Dyspnea on exertion R06.09 ; Leg swelling M79.89 and Chronic pain syndrome G89.4 [facility] [address] [address] 10/18/2023 Telma McNees Shortness of breath R06.02 ; Fatigue, unspecified type R53.83 and Abscess of left axilla L02.412 [facility] [address] [address] 11/01/2023 Telma McNees Subacute cough R05.2 and COVID-19 U07.1 [facility] [address] [address] 11/30/2023 Jose Mendoza Primary osteoarthrit is involving multiple joints M15.0 ; Chronic pain syndrome G89.4 ; Atherosclerosis of makah coronary artery of makah heart without angina pectoris I25.10 ; HTN (hypertension) I10 ; Lymphedema I89.0 ; Routine medical exam Z00.00 and Immunization(s) administered Z23 [facility] [address] [address] 01/04/2024 Jose Mendoza Acute bronchopneumon ia J18.0 ; Diastolic CHF, chronic I50.32 and Hospital discharge follow-up Z09 [address] [address] 03/07/2024 Jose Mendoza Primary osteoarthrit is involving multiple joints M15.0 ; HTN (hypertension) I10 ; Hyperlipemia, idiopathic familial E78.5 ; Lymphedema I89.0 ; Dyspnea on exertion R06.09 ; Overactive bladder N32.81 and Routine medical exam Z00.00 [facility] [address] [address] 03/23/2024 Jose Mendoza Chronic anemia D64.9 ; Dyspnea on effort R06.09 and Arthritis of knee M17.10 [facility] [address] [address] 05/05/2024 Telma McNees Bronchitis J40 [facility] [address] [address] 06/13/2024 Jose Mendoza Adenocarcinoma, colo n C18.9 ; Atherosclerosis of makah coronary artery of makah heart without angina pectoris I25.10 ; Iron deficiency anemia, unspecified iron deficiency anemia type D50.9 ; Diastolic CHF, chronic I50.32 and Chronic pain syndrome G89.4 [facility] [address] [address] 07/20/2024 Jose Mendoza Diastolic CHF, chron ic I50.32 ; S/P right colectomy Z90.49 ; Adenocarcinoma, colon C18.9 and Hospital discharge follow-up Z09 [facility] [address] [address] 09/06/2023 Jose Besson [facility] [address] [place] [address] 09/08/2023 Jose Besson [facility] [address] [facility] [address] [place] [address] 10/08/2023 Jose Besson [facility] [address] [address] 10/13/2023 Gifty Amezcua Iron deficiency anem ia, unspecified iron deficiency anemia type D50.9 [facility] [address] [address] 10/14/2023 Jose Mendoza Chronic pain syndrom e G89.4 [facility] [address] [address] 11/15/2023 Josekarmen Mendoza Chronic pain syndrom e G89.4 [facility] [address] [place] [address] 11/15/2023 Telma McNees Adrenal mass E27.8 [facility] [address] [place] [address] 12/01/2023 Jose Reji Lymphedema I89.0 [facility] [address] [place] [address] 12/08/2023 Jose Mendoza Fatigue, unspecified type R53.83 [facility] [address] [place] [address] 12/09/2023 Jose Besson [facility] [address] [place] [address] 12/16/2023 Jose Besson Chronic pain syndrom e G89.4 [facility] [address] [place] [address] 12/17/2023 Jose Besson [facility] [address] [place] [address] 01/03/2024 Jose Besson [facility] [address] [place] [address] 01/14/2024 Jose Tieshason Chronic pain syndrom e G89.4 [facility] [address] [place] [address] 02/14/2024 Jose Besson Chronic pain syndrom e G89.4 [facility] [address] [place] [address] 03/13/2024 Jose Besson Chronic pain syndrom e G89.4 [facility] [address] [place] [address] 03/20/2024 Jose Besson Peripheral edema R60 .0 [facility] [address] [place] [address] 04/14/2024 Jose Besson Chronic pain syndrom e G89.4 [facility] [address] [place] [address] 04/24/2024 Jose Besson Peripheral edema R60 .0 [facility] [address] [place] [address] 04/25/2024 Jose Besson [facility] [address] [address] 05/11/2024 Jose Mendoza Chronic pain syndrom e G89.4 [facility] [address] [address] 06/12/2024 Jose Besbetsy Chronic pain syndrom e G89.4 [facility] [address] [address] 07/10/2024 Josekarmen Mendoza Chronic pain syndrom e G89.4 [facility] [address] [place], [place] [address] 07/19/2024 Jose Mendoza [facility] [address] [address] 07/19/2024 Jose Mendoza Assessments Encounter Date Diagnosis (ICD Code) Assessment Notes Treatment Notes Treatment Clinical Notes Section Notes 08/19/2023 Chronic pain syndrome (ICD-10 - G89.4) 08/19/2023 Primary osteoarthritis involving multiple joints (ICD-10 - M15.0) Given chronic fatigue, chronic mobility issues I think weaning down on pain medication is optimal. She is not excited about this idea. I told her she could take 4 times daily on 5 mg dose which is 25% lower. She will come back in 4 weeks to reassess and we will do labs at that point to evaluate her anemia and other medical problems. 11/01/2023 COVID-19 (ICD-10 - U07.1) Discussed importance of pulmonary toilet and hydration. OTC medications for symptom management reviewed. Discussed reasons to seek care in clinic or ED (worsening cough, shortness of breath, high fever not responding to treatment, inability to tolerate typical PO intake). Also recommended self-quarantine at home per CDC guidelines. 11/01/2023 Subacute cough (ICD-10 - R05.2) 03/23/2024 Dyspnea on effort (ICD-10 - R06.09) Agree with cardiology assessment. No changes in plan at this point 03/23/2024 Chronic anemia (ICD-10 - D64.9) Given patient's issues I feel it is warranted to stop Xarelto. Check anemia labs as noted. I will follow these labs personally 04/14/2024 Chronic pain syndrome (ICD-10 - G89.4) 01/14/2024 Chronic pain syndrome (ICD-10 - G89.4) 01/04/2024 Acute bronchopneumonia (ICD-10 - J18.0) Seems to be improving. Finish up antibiotics. Discussed deep breathing every hour to try to get more lower airway aeration and some coughing. Encouraged a little bit more outside activity for increased ventilation 01/04/2024 Diastolic CHF, chronic (ICD-10 - I50.32) Seems euvolemic. No changes in plan 12/16/2023 Chronic pain syndrome (ICD-10 - G89.4) 12/08/2023 Fatigue, unspecified type (ICD-10 - R53.83) 12/01/2023 Lymphedema (ICD-10 - I89.0) 09/16/2023 Chronic pain syndrome (ICD-10 - G89.4) 09/16/2023 Primary osteoarthritis involving multiple joints (ICD-10 - M15.0) Overall patient seems to be stable. I completely understand her desire for increased pain medication need for patient but I would like her to try another 2 weeks on the lower dose. I will see her back in 2 weeks to follow-up the edema issues and if she still think she needs to go back on the higher dose we will reevaluate 07/20/2024 Diastolic CHF, chronic (ICD-10 - I50.32) [...] for follow up on chronic med conditions 07/10/2024 Chronic pain syndrome (ICD-10 - G89.4) 06/13/2024 Adenocarcinoma, colon (ICD-10 - C18.9) Reviewed colonoscopy results with patient. Workup is in progress, will follow along with patient. 06/12/2024 Chronic pain syndrome (ICD-10 - G89.4) 05/27/2024 Chronic pain syndrome (ICD-10 - G89.4) 05/27/2024 Bronchitis (ICD-10 - J40) 05/11/2024 Chronic pain syndrome (ICD-10 - G89.4) 05/05/2024 Bronchitis (ICD-10 - J40) Discussed the etiology and expected course of bronchitis. Discussed the rationale for antibiotics and steroid use and the importance of completing the prescription as prescribed. Discussed supportive care. Discussed the signs and symptoms of worsening infection/respirat ory distress that may indicate need for reassessment in clinic/ED. 04/24/2024 Peripheral edema (ICD-10 - R60.0) 03/20/2024 Peripheral edema (ICD-10 - R60.0) 03/13/2024 Chronic pain syndrome (ICD-10 - G89.4) 06/13/2024 Atherosclerosis of makah coronary artery of makah heart without angina pectoris (ICD-10 - I25.10) Currently stable from heart disease perspective, continues to follow with [facility].Will represent a high risk patient if resection is deemed to be an option by colorectal surgery 03/07/2024 HTN (hypertension) (ICD-10 - I10) Chronic, controlled. Continue current regimen. 03/07/2024 Primary osteoarthritis involving multiple joints (ICD-10 - M15.0) Chronic, improved. Follows with pain management and s/p right supraclavicular nerve block that has been helpful and the plan is to try again on the left. Started on pregabalin 75 mg BID per PM that she believes is helpful. Continue hydrocodone 7.5 mg Q6H PRN. CSA signed today. 02/14/2024 Chronic pain syndrome (ICD-10 - G89.4) 11/30/2023 Chronic pain syndrome (ICD-10 - G89.4) See notes above 11/30/2023 Primary osteoarthritis involving multiple joints (ICD-10 - M15.0) Lots of chronic pain issues that are somewhat worsened with emotional distress, immobility, dyspnea. Continue current pain medication dosage. We have trialed reduction in dose but this has not been effective. She is very dependent on these medications. Does not appear to be causing dyspnea or mental status changes. 11/15/2023 Adrenal mass (ICD-10 - E27.8) 11/15/2023 Chronic pain syndrome (ICD-10 - G89.4) 10/18/2023 Shortness of breath (ICD-10 - R06.02) Extensive review of records including previous office notes, cardiology note, echo. Symptoms are c/w diastolic heart failure. Has appointment with cardiology tomorrow, will defer med changes to them at this time. Given her worsening symptoms will repeat labs including D. Dimer and BNP and obtain CT chest for patient reassurance. Consider pulmonology referral pending results 10/18/2023 Fatigue, unspecified type (ICD-10 - R53.83) 10/14/2023 Chronic pain syndrome (ICD-10 - G89.4) 10/13/2023 Iron deficiency anemia, unspecified iron deficiency anemia type (ICD-10 - D50.9) 09/30/2023 Dyspnea on exertion (ICD-10 - R06.09) -Echo earlier this year shows grade II diastolic dysfunction which may be contributing towards her [place] -She reports wheezing when she gets short of breathe, no history of smoking or asthma; will get PFTs to further evaluate -Should also consider deconditioning if PFTs return normal. Other workup to consider includes HRCT and cardiopulmonary testing -Follow up after PFTs 09/30/2023 Iron deficiency anemia, unspecified iron deficiency anemia type (ICD-10 - D50.9) -Patient taking iron supplement, will recheck labs 09/30/2023 Leg swelling (ICD-10 - M79.89) -In setting of HFpEF -Continue Bumex 1 mg daily for fluid management 10/18/2023 Abscess of left axilla (ICD-10 - L02.412) Warm compresses, clinda as above, appointment scheduled with general surgery for I&D tomorrow 07/20/2024 Adenocarcinoma, colon (ICD-10 - C18.9) -s/p resection as above 11/30/2023 Atherosclerosis of makah coronary artery of makah heart without angina pectoris (ICD-10 - I25.10) Overall no evidence of angina. 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 Lipid panel pending today. 06/13/2024 Iron deficiency anemia, unspecified iron deficiency anemia type (ICD-10 - D50.9) Will follow-up in 2 months with blood counts at that point 09/16/2023 Peripheral edema (ICD-10 - R60.0) Trial of Bumex. Follow-up 2 weeks to check kidney function and weight. Kidney function is reduced so very cautious trial of diuretics. Triamcinolone for stasis dermatitis rash 01/04/2024 Hospital discharge follow-up (ICD-10 - Z09) Reviewed ER records, reconciled medications, she will finish of antibiotics this week 03/23/2024 Arthritis of knee (ICD-10 - M17.10) Continue pain management, with medications for me as well as pain clinic visits. Knee injection done as noted above, hopefully this will give her some relief 08/19/2023 Iron deficiency anemia, unspecified iron deficiency anemia type (ICD-10 - D50.9) Blood counts reviewed from last visit, improving. Follow-up in 4 weeks with repeat labs at that point 07/20/2024 Hospital discharge follow-up (ICD-10 - Z09) Personally reviewed H&P and discharge summary as available from hospital discharge documentation. Reviewed pertinent labs and test done in the hospital. Personally reconciled medication. 06/13/2024 Diastolic CHF, chronic (ICD-10 - I50.32) Currently appears euvolemic, blood pressure under good control, no changes in cardiac or diuretic medications 03/07/2024 Lymphedema (ICD-10 - I89.0) Chronic, improved. Improvement with lymphedema PT. 11/30/2023 HTN (hypertension) (ICD-10 - I10) Good blood pressure control. No changes in plan 09/30/2023 Chronic pain syndrome (ICD-10 - G89.4) -Patient continues to have chronic pain in her legs and knees. -Follows with pain clinic -Will go back to original dose on pain medication. -Encouraged patient to see orthopedic surgery to discuss knee injections 11/30/2023 Lymphedema (ICD-10 - I89.0) No evidence of fluid overload. Lymphedema trial 03/07/2024 Dyspnea on exertion (ICD-10 - R06.09) Chronic, stable. Follows with cardiology with extensive w/u completed. Continue daily lasix and K supplementation. Pulmonology and pulmonology rehab referral placed. 06/13/2024 Chronic pain syndrome (ICD-10 - G89.4) Patient has been compliant with our office and [place] regulations r.e. meds. No concerns on my part about diversion or misuse. Labs and Yuri reports reviewed and are appropriate. 03/07/2024 Overactive bladder (ICD-10 - N32.81) Chronic, stable. Continues to endorse multiple nighttime awakenings. Continue gemtesa 75 mg daily. Discussed lifestyle modifications. 11/30/2023 Routine medical exam (ICD-10 - Z00.00) Patient is aged out of cancer screening. Aged out of other interventions. No recent falls. Poor functional status.Undergoing pain clinic evaluation, will get lymphedema involved with physical therapy. Uses rollator walker Memory testing previously noted. Has cognitive impairment. No evidence of Alzheimer's. Currently has good support of safe home environment. Depression screening currently negative. Flu shot today. Otherwise up-to-date with pneumonia vaccine. Lab orders up-to-date 11/30/2023 Immunization(s) administered (ICD-10 - Z23) 03/07/2024 Routine medical exam (ICD-10 - Z00.00) Aged out of cancer screenings but planning EGD and C-scope with general surgery 03/16/24 due to anemia of unknown orgin. Aged out of other interventions. No recent falls. Poor functional status. Uses rollator walker Memory testing previously noted. Has cognitive impairment. No evidence of Alzheimer's. Currently has good support of safe home environment. Depression screening currently negative. Lab today. Will personally review. 08/19/2023 Other Has not gained weight, no edema, stay off diuretics Plan Of Treatment Pending Test Test Name Order Date Ultrasound : Abdomen 08/17/2012 Physical Therapy 11/10/2013 Physical Therapy 08/01/2019 Physical Therapy 04/08/2021 Mammogram : Bilateral 03/07/2021 Mammogram : Bilateral 09/16/2022 Occupational Therapy : Eval & Treatment 08/01/2019 H-VIT D, 1,25-HYDROXY 10/30/2016 H-VIT D, 25-HYDROXY 04/02/2016 C-CMP 02/27/2020 C-LIPID PANEL 02/27/2020 C-URINE CULTURE 11/23/2017 C-URINE CULTURE 11/11/2012 Pulmonary Function Test- Complete 2023 Physical Therapy : Lymphedema 12/01/2023 M-Complete Blood Count w/o Diff 10/13/19 24 M-BNP 10/13/2023 M-Vitamin D 25 Hydroxy 03/05/2022 M-Vitamin D 25 Hydroxy 03/04/2021 Next Appt Details Provider Name:Jose Mendoza, 08/15/2024 10:30:00 AM, [address] [facility], [place], [address], Insurance Providers Payer Name Payer Address Payer Phone Subscriber Number Group Number Insured Name Patient Relationship to Insured Coverage Start Date Coverage End Date [employer] [address] [address] [place] [phone] [id number] Gina Stone Self - patient is the insured MEDICAID EDS [address] [place] [address] [phone] [id number] Gina Stone Self - patient is the insured Medications Administered Medication Instructions Date of Administration Dosage Notes Kenalog 04/02/2016 1 mL Kenalog 01/09/2016 1 mL Kenalog 10/23/2014 1 mL Kenalog 07/24/2014 1 Triamcinolone Acetonide 40mg Injection 02/23/2019 1 mL Kenalog 40mg 11/12/2016 40 mg Kenalog 40mg 06/23/2016 40 mg Dexamethasone 4mg Injection 12/17/2022 4 mg Triamcinolone Acetonide 40mg Injection 08/01/2019 1 mL Dexamethasone 4mg Injection 05/05/2024 4 mg Medical (General) History Medical History History ICD Code osteoporosis - most recent DEXA scan 201 4 with improved bone density fractured right lower leg, 2011 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 appr opriate uds 06/12 hyperlipidemia CAD x 4 stents - normal Nuc Med stress t est 09/2022 GERD normal mammogram may 2018 - repeated and normal 02/2020 and normal 06/13 and normal 04/17 Last eye exam 11/2015 Colon Cancer Surgical History Surgery Date(Month/Year) tubal hysterectomy rfancis in right femur from fx femur and sli pped and fell cardiac stents x4 pacemaker 10/2017 back 08/2020 colon 2/3 removed Hospitalization History Reason Date(Month/Year) HTN 2012 [facility] - 07/22-07/24/2023 [facility] - Colon surgery 07/10-
--- OUTSIDE RECORDS SUMMARY | 2024-08-10 17:25 | XMS_ITS | Encounter Summary ---
Author Organization Healthcare Address [address] [place] [address] Care Team Providers Care Band Shover Name Role Phone Jose Mendoza MD Primary Care Provider [phone] Encounter Details Date Type Department Care Team (Late Contact Info) Description 06/15/2024 Lab Requisition [facility] [address] [place] [phone] Mata Smalls MD [address] [place] [phone] Anemia, unspecified Social History Tobacco Use Types Packs/Day Years Used Date Smoking Tobacco: Never Assessed Comments Unknown Sex and Gender Information Value Date Recorded Sex Assigned at Not on file Legal Sex Female 8:12 PM EDT Gender Identity Not on file Sexual Orientation Not on file documented as of this encounter Plan of Treatment Upcoming Encounters Date Type Department Care Team (Late Contact Info) Description 08/15/2024 3:00 PM EDT Office Visit [facility] [address] [place] [phone] Mata Smalls MD [address] [place] [phone] documented as of this encounter Procedures Procedure Name Priority Date/Time Associated Diagnosis Comments SURGICAL PATHOLOGY CONSULT Routine 06/15/2024 1:25 PM EDT Anemia, unspecified documented in this encounter Results * Surgical Pathology Consult (06/15/2024 1:25 PM EDT) Case Report Sug[facility] Pathology Consult Case: [id number] Authorizing Provider: Mata Smalls MD Collected: 06/15/2024 1325 Ordering Location: [facility] Lab Received: 06/15/2024 1326 Pathologist: Mick Dash MD Specimen: Colon, [id number] 2:47 PM EDT [facility] Final Diagnosis (OUTSIDE CASE: [id number], PARTS C&D; COLLECTED ON 06/07/2024): COLON, HEPATIC FLEXURE, BIOPSY (C): - ADENOCARCINOMA, POORLY DIFFERENTIATED (SEE COMMENT) SIGMOID COLON, POLYP, BIOPSY (D): - ADENOCARCINOMA, POORLY DIFFERENTIATED (SEE COMMENT) 2:47 PM EDT [facility] at 1447 EDT Comment The clinical impression of a hepatic flexure mass is noted. Biopsies from both the hepatic flexure and sigmoid colon (specimens C and D provided for review) both display an invasive poorly differentiated adenocarcinoma, with necrosis. Overall findings, including tumor morphology and immunohistochemica l workup (see below) are nonspecific, but could support a colorectal primary process or involvement by a tumor with enteric differentiation. 2:47 PM EDT [facility] Clinical Information D64.9 - Anemia, unspecified [ICD-10-CM] 2:47 PM EDT [facility] Special and Immunohistochemical Stains Immunohistochemica l stains that have been performed and interpreted by the outside institution (not reviewed here), have been reported as follows: Positive: CDX2, SATB2 (focal, weak) Negative: CK7, CK20, SYNAPTOPHYSIN, CD56 MMR proteins; IHC interpretation (per report) Loss of nuclear expression of MLH1 and PMS2 2:47 PM EDT [facility] Gross Description A. [id number] Received along with a corresponding pathology report from [facility] are 2 slides labeled outside case: [id number] collected on 06/07/2024. 04/29/202 5 2:47 PM EDT [facility] Note: A resident was involved in the service. I attest I examined the relevant preparations for the specimens and confirmed the diagnosis or interpretation. 5 2:47 PM EDT [facility] Tissue Colon structure / Unknown 06/15/2024 1:25 PM EDT 06/15/2024 1:26 PM EDT us Mata Smalls MD LAB PATHOLOGY ORDERABLES Final Result [facility] [address] [place] [address] documented in this encounter Visit Diagnoses Diagnosis Anemia, unspecified documented in this encounter Care Teams Band Shover Relationship Specialty Start Date End Date Jose Mendoza MD [address] [place] [address] PCP - General Internal Medicine 05/23/24 documented as of this encounter
--- OUTSIDE RECORDS SUMMARY | 2024-08-10 17:25 | XMS_ITS | Encounter Summary ---
Author Organization Healthcare Address [address] [place] [address] Care Team Providers Care Comptometer Operator Name Role Phone Jose Mendoza MD Primary Care Provider [phone] Encounter Details Date Type Department Care Team (Latest Contact Info) Description 06/22/2024 Travel Social History Tobacco Use Types Packs/Day [...] Description 08/15/2024 3:00 PM EDT Office Visit [facility] Mult[facility]isciplinary Oncology Clinic [address] [place] [phone] Mata Smalls MD [address] [facility] [address] [place] [phone] documented as of this encounter Visit Diagnoses Not on filedocumented in this encounter Additional Health Concerns Assessment Noted Time A fall risk assessment has been complete d for the patient 06/20/2024 1:33 PM EDT A Body Mass Index follow-up plan has been documented for the patient 06/28/2024 4:06 PM EDT documented as of this encounter Care Teams Comptometer Operator Relationship Specialty Start Date End Date Jose Mendoza MD [address] [place] [address] PCP - General Internal Medicine 05/23/24 documented as of this encounter
--- OUTSIDE RECORDS SUMMARY | 2024-08-10 17:25 | XMS_ITS | Encounter Summary ---
Author Organization Healthcare Address [address] [place] [address] Care Team Providers Care Jukebox Operator Name Role Phone Jose Mendoza MD Primary Care Provider + [phone] Reason for Visit * Reason Onset Date Comments Appointment 07/18/2024 Encounter Details Date Type Department Care Team ([facility] st Contact Info) Description 07/18/2024 Telephone [facility] [address] [place] [phone] Mata Smalls MD [address] [facility] [address] [place] [phone] Appointment Social History Tobacco Use Types Packs/Day Years [...] any time in the past 12 m [facility], were you homeless or living in a usp (including now)? No 07/11/2024 Utilities Answer Date [...] Telephone Encounter - Amber Goel RN - 07/18/2024 8:45 AM EDT Called and spoke with pt. Notified of hosp f/u appt on 08/15. Appt details provided. Pt verbalized understanding. No further questions or concerns. documented in this encounter Plan of Treatment Upcoming Encounters Date Type Department Care Team (Late st Contact Info) Description 08/15/2024 3:00 PM EDT Office Visit [facility] Multidisciplinary Oncology Clinic [address] [place] [phone] Mata Smalls MD [address] [place] [phone] documented as of this encounter Visit Diagnoses Not on filedocumented in this encounter Additional Health Concerns Assessment Noted Time A fall risk assessment has been complete d for the patient 06/20/2024 1:33 PM EDT A Body Mass Index follow-up plan has been documented for the patient 07/15/2024 3:46 PM EDT documented as of this encounter Care Teams Jukebox Operator Relationship Specialty Start Date End Date Jose Mendoza MD [address] [place] [address] PCP - General Internal Medicine 05/23/24 documented as of this encounter
--- OUTSIDE RECORDS SUMMARY | 2024-08-10 17:25 | XMS_ITS | Encounter Summary ---
Author Organization Healthcare Address [address] [place] [address] Care Team Providers Care Community Affairs Director Name Role Phone Jose Mendoza MD Primary Care Provider [phone] Encounter Details Date Type Department Care Team (Latest Contact Info) Description 06/23/2024 Travel Social History Tobacco Use Types Packs/Day [...] Description 08/15/2024 3:00 PM EDT Office Visit [facility] Mult[facility]isciplinary Oncology Clinic [address] [place] [phone] Mata Smalls MD [address] [facility] [address] [place] [phone] documented as of this encounter Visit Diagnoses Not on filedocumented in this encounter Additional Health Concerns Assessment Noted Time A fall risk assessment has been complete d for the patient 06/20/2024 1:33 PM EDT A Body Mass Index follow-up plan has been documented for the patient 06/28/2024 4:06 PM EDT documented as of this encounter Care Teams Community Affairs Director Relationship Specialty Start Date End Date Jose Mendoza MD [address] [place] [address] PCP - General Internal Medicine 05/23/24 documented as of this encounter
--- OUTSIDE RECORDS SUMMARY | 2024-08-10 17:25 | XMS_ITS | Encounter Summary ---
Author Organization [facility] Address [address] [place] [address] Care Team Providers Care Laminating Machine Tender Name Role Phone Jose Mendoza MD Primary Care Provider [phone] Reason for Referral * Imaging (Routine) - Closed Specialty Diagnoses / Procedures Referred By Contac t Referred To Contact Radiology Diagnoses Malignant neoplasm of colon, unspecified part of colon (CMS/HCC) Procedures CT Abdomen Pelvis w IV Contrast Mata Smalls MD [address] [address] Phone: tel: fax: Referral ID Status Reason Start Date Expiration Date Visits Re quested Visits Authorized [id number] Closed 06/14/2024 12/14/2025 1 1 * Imaging (Routine) - Closed Specialty Diagnoses / Procedures Referred By Contelvin t Referred To Contact Radiology Diagnoses Malignant neoplasm of colon, unspecified part of colon (CMS/HCC) Procedures CT Chest w IV Contrast Mata Smalls MD [address] [address] Phone: tel: fax: Referral ID Status Reason Start Date Expiration Date Visits Re quested Visits Authorized [id number] Closed 06/14/2024 12/14/2025 1 1 Encounter Details Date Type Department Care Team (Latest Contact Info) Description 06/14/2024 Orders Only [facility] [address] [place] [address] Mata Smalls MD [address] [address] Malignant neoplasm of colon, unspecified part of colon (CMS/HCC) (Primary Dx) Social History Tobacco Use Types Packs/Day Years Used Date Smoking Tobacco: Never Assessed Comments Unknown Sex and Gender Information Value Date Recorded Sex Assigned at Not on file Legal Sex Female 8:12 PM EDT Gender Identity Not on file Sexual Orientation Not on file documented as of this encounter Miscellaneous Notes * Clinician Note - Amber Goel RN - 06/14/2024 8:[address] Raymond Smalls, new patient being referred to him for colon cancer. Needing CT staging and labs. Orders placed. INSULATION WORKER FURNACE INSTALLER Coordinator Karthik Alex notified for assistance with scheduling. documented in this encounter Plan of Treatment Upcoming Encounters Date Type Department Care Team (Late st Contact Info) Description 08/15/2024 3:00 PM EDT Office Visit [facility] [address] [place] [address] Mata Smalls MD [address] [address] documented as of this encounter Results * CT Abdomen Pelvis [...] Total DLP (Dose-Length Product): 1068.95 mGy.cm (accession [id number]), 1068.95 mGy.cm (accession [id number]) Please note: The reported value represents the [...] Total DLP (Dose-Length Product): 1068.95 mGy.cm (accession [id number]),1068.95 mGy.cm (accession [id number]) Please note: The reported valuerepresents the total [...] Total DLP (Dose-Length Product): 1068.95 mGy.cm (accession [id number]), 1068.95 mGy.cm (accession [id number]) Please note: The reported value represents the [...] Total DLP (Dose-Length Product): 1068.95 mGy.cm (accession [id number]),1068.95 mGy.cm (accession [id number]) Please note: The reported valuerepresents the total [...] MD IMG CT PROCEDURES Final Result * Prealbumin, Plasma (06/20/2024 2:25 PM EDT) Prealbumin, Plasma 22.3 20.0 - 41.0 mg/dL 06/20/2024 3:37 PM EDT [facility] Blood Venous blood specimen / Unknown Venipuncture / Unknown 06/20/2024 2:25 PM EDT 06/20/2024 3:05 PM EDT Mata Smalls MD LAB BLOOD ORDERABLES Final Res ult [facility] [address] [place] [address] * (ABNORMAL) Comprehensive Metabolic Panel, Plasma (06/20/2024 2:25 PM EDT) Glucose, Plasma 95 74 - 99 mg/dL 06/20/2024 3:37 PM EDT [facility] BUN, Plasma 20 8 - 23 mg/dL 06/20/2024 3:37 PM EDT [facility] Creatinine, Plasma 1.21(H) 0.60 - 1.10 mg/dL 06/20/2024 3:37 PM EDT [facility] BUN/Creatinine Ratio 17 06/20/2024 3:37 PM EDT [facility] Sodium, Plasma 139 136 - 145 mmol/L 06/20/2024 3:37 PM EDT [facility] Potassium, Plasma 4.9 3.6 - 4.9 mmol/L 06/20/2024 3:37 PM EDT [facility] Chloride, Plasma 103 97 - 107 mmol/L 06/20/2024 3:37 PM EDT [facility] CO2, Plasma 27 22 - 29 mmol/L 06/20/2024 3:37 PM EDT [facility] Anion Gap 9 6 - 16 mmol/L 06/20/2024 3:37 PM EDT [facility] Total Calcium, Plasma 9.8 8.9 - 10.2 mg/dL 06/20/2024 3:37 PM EDT [facility] Total Protein 7.0 6.3 - 7.9 g/dL 06/20/2024 3:37 PM EDT [facility] Albumin, Plasma 4.0 3.5 - 5.2 g/dL 06/20/2024 3:37 PM EDT [facility] AST, Plasma 19 10 - 35 U/L 06/20/2024 3:37 PM EDT [facility] ALT, Plasma 17 10 - 35 U/L 06/20/2024 3:37 PM EDT [facility] Alkaline Phosphatase, Plasma 85 46 - 142 U/L 06/20/2024 3:37 PM EDT [facility] Total Bilirubin, Plasma 0.4 0.2 - 1.1 mg/dL 06/20/2024 3:37 PM EDT [facility] eGFRcr 45.1 mL/min/1.7 3m*2 06/20/2024 3:37 PM EDT [facility] Comment:Reported eGFRcr in m L/min/1.73m2 is based the CKD-EPI 2020 equation that does not use a race coefficient. Blood Venous blood specimen / Unknown Venipuncture / Unknown 06/20/2024 2:25 PM EDT 06/20/2024 3:05 PM EDT Mata Smalls MD LAB BLOOD ORDERABLES Final Res ult Performing Organization Address [facility] de Phone Number [facility] [address] [place] [address] * (ABNORMAL) CEA, Serum (06/20/2024 2:25 PM EDT) [facility] CEA, Serum 4.3(H) <4.0 ng/mL 06/20/2024 3:50 PM EDT [facility] Blood Venous blood specimen / Unknown Venipuncture / Unknown 06/20/2024 2:25 PM EDT 06/20/2024 3:05 PM EDT Narrative [facility] - 06/20/2024 3:50 PM EDT Normal range for smokers: < 5.5 ng/ml Normal range for non-smokers: <=4.0 ng/ml Performed by Shir[employer] electrochemiluminescent immunoassay. Results obtained with different test methods or kits cannot be used interchangeably. Mata Smalls MD LAB BLOOD ORDERABLES Final Res ult Performing Organization Address [facility] de Phone Number [facility] [address] [place] [address] * (ABNORMAL) CBC W/O Differential (06/20/2024 2:25 PM EDT) [facility] WBC Count 7.95 3.70 - 10.30 10*3/uL LAB HEMATOLOGY METHOD 06/20/2024 2:53 PM EDT [facility] RBC Count 4.39 3.90 - 5.20 10*6/uL LAB HEMATOLOGY METHOD 06/20/2024 2:53 PM EDT [facility] HGB 11.8 11.2 - 15.7 g/dL LAB HEMATOLOGY METHOD 06/20/2024 2:53 PM EDT [facility] HCT 37.8 34.0 - 45.0 % LAB HEMATOLOGY METHOD 06/20/2024 2:53 PM EDT [facility] Platelet Count 251 155 - 369 10*3/uL LAB HEMATOLOGY METHOD 06/20/2024 2:53 PM EDT [facility] MCV 86 79 - 98 fL LAB HEMATOLOGY METHOD 06/20/2024 2:53 PM EDT [facility] MCH 26.9 26.0 - 32.0 pg LAB HEMATOLOGY METHOD 06/20/2024 2:53 PM EDT [facility] MCHC 31.2 30.7 - 35.5 g/dL LAB HEMATOLOGY METHOD 06/20/2024 2:53 PM EDT [facility] RDW 15.9(H) 11.5 - 14.5 % LAB HEMATOLOGY METHOD 06/20/2024 2:53 PM EDT [facility] MPV 12.2 8.8 - 12.5 fL LAB HEMATOLOGY METHOD 06/20/2024 2:53 PM EDT [facility] nRBC 0.0 <=0.0 per 100 WBCs LAB HEMATOLOGY METHOD 06/20/2024 2:53 PM EDT [facility] Blood Venous blood specimen / Unknown Venipuncture / Unknown 06/20/2024 2:25 PM EDT 06/20/2024 2:49 PM EDT us Mata Smalls MD LAB BLOOD ORDERABLES Final Res ult Performing Organization Address City/State/[facility] Co de Phone Number [facility] [address] [place] [address] documented in this encounter Visit Diagnoses Diagnosis Malignant neoplasm of colon, unspecified part of colon (CMS/HCC)- Primary Malignant neoplasm of colon, unspecified part of colon (CMS/HCC) documented in this encounter Care Teams Laminating Machine Tender Relationship Specialty Start Date End Date Jose Mendoza MD [address] [place] [address] PCP - General Internal Medicine 05/23/24 documented as of this encounter
--- OUTSIDE RECORDS SUMMARY | 2024-08-10 17:25 | XMS_ITS | Encounter Summary ---
Author Organization [facility] Address [address] [place] [address] Care Team Providers Care Model Builder Display Name Role Phone Jose Mendoza MD Primary Care Provider [phone] Reason for Visit * Reason Onset Date Comments [facility] 07/18/2024 Encounter Details Date Type Department Care Team (Late st Contact Info) Description 07/18/2024 Telephone [facility] [address] [place] [address] Mata Smalls MD [address] [facility] [address] [place] [address] [facility] Social History Tobacco Use Types Packs/Day Years [...] any time in the past 12 m [facility], were you homeless or living in a chcf (including now)? No 07/11/2024 Utilities Answer Date [...] encounter Miscellaneous Notes * Telephone Encounter - Liv Simms - 07/18/2024 11:23 AM EDT Attempt 1: Care Guide (CG) called the patient (pt) at and successfully completed outreach. Pt is doing well and has no needs at this time. documented in this encounter Plan of Treatment Upcoming Encounters Date Type Department Care Team (Late st Contact Info) Description 08/15/2024 3:00 PM EDT Office Visit [facility] On[facility] Clinic [address] [place] [address] Mata Smalls MD [address] [place] [address] documented as of this encounter Visit Diagnoses Not on filedocumented in this encounter Additional Health Concerns Assessment Noted Time A fall risk assessment has been complete d for the patient 06/20/2024 1:33 PM EDT A Body Mass Index follow-up plan has been documented for the patient 07/15/2024 3:46 PM EDT documented as of this encounter Care Teams Model Builder Display Relationship Specialty Start Date End Date Jose Mendoza MD [address] [place] [address] PCP - General Internal Medicine 05/23/24 documented as of this encounter
--- OUTSIDE RECORDS SUMMARY | 2024-08-10 17:25 | XMS_ITS | Encounter Summary ---
Author Organization [facility] Address [address] [place] [address] Care Team Providers Care Land Leasing Examiner Name Role Phone Jose Mendoza MD Primary Care Provider [phone] Encounter Details Date Type Department Care Team (Latest Contact Info) Description 06/20/2024 Travel Social History Tobacco Use Types Packs/Day [...] 3:00 PM EDT Office Visit [facility] On[facility] Clinic [address] [place] [address] Mata Smalls MD [address] [facility] [address] [place] [address] documented as of this encounter Visit Diagnoses Not on filedocumented in this encounter Additional Health Concerns Assessment Noted Time A fall risk assessment has been complete d for the patient 06/20/2024 1:33 PM EDT A Body Mass Index follow-up plan has been documented for the patient 06/28/2024 4:06 PM EDT documented as of this encounter Care Teams Land Leasing Examiner Relationship Specialty Start Date End Date Jose Mendoza MD [address] [place] [address] PCP - General Internal Medicine 05/23/24 documented as of this encounter
--- OUTSIDE RECORDS SUMMARY | 2024-08-10 17:25 | XMS_ITS | Encounter Summary ---
Author Organization [facility] Address [address] [place] [address] Care Team Providers Care Retail Sales Merchandiser Development Name Role Phone Jose Mendoza MD Primary Care Provider [phone] Encounter Details Date Type Department Care Team (Latest Contact Info) Description 07/15/2024 Travel Social History Tobacco Use Types Packs/Day [...] time in the past 12 m [facility], were you homeless or living in a care home (including now)? No 07/11/2024 Utilities Answer Date [...] Mary Kaba documented as of this encounter Plan of Treatment Upcoming Encounters Date Type Department Care Team (Late st Contact Info) Description 08/15/2024 3:00 PM EDT Office Visit [facility] Multidisciplinary Oncology Clinic [address] [place] [address] Mata Smalls MD [address] [place] [phone] documented as of this encounter Visit Diagnoses Not on filedocumented in this encounter Additional Health Concerns Assessment Noted Time A fall risk assessment has been complete d for the patient 06/20/2024 1:33 PM EDT A Body Mass Index follow-up plan has been documented for the patient 07/15/2024 3:46 PM EDT documented as of this encounter Care Teams Retail Sales Merchandiser Development Relationship Specialty Start Date End Date Jose Mendoza MD [address] [place] [address] PCP - General Internal Medicine 05/23/24 documented as of this encounter
--- OUTSIDE RECORDS SUMMARY | 2024-08-10 17:25 | XMS_ITS | Clinical Summary ---
Author Organization [facility] Address [address] [place] [address] Care Team Providers Care Machine Stripper Name Role Phone Jose Mendoza MD Primary Care Provider [phone] Allergies No known active allergies Medications alendronate (Fosamax) 70 MG tablet Take 1 tablet by mouth every 7 days. Wednesday Active ASPIRIN 81 MG chewable tablet Chew 1 tablet 1 time each day. Active baclofen (Lioresal) 10 MG tablet Take 1 tablet by mouth as needed. Active ferrous sulfate 325 (65 Fe) MG tablet Take 1 tablet by mouth 3 times a day with meals. Active furosemide (Lasix) 40 MG tablet Take 1 tablet by mouth daily. Active HYDROcodone-acetam inophen (Bullock) 7.5-325 MG tablet Take 1 tablet by mouth every 6 hours. 09/18/19 24 Active isosorbide mononitrate ER (Imdur) 60 MG 24 hr tablet Take 1 tablet by mouth daily. 05/18/19 25 Active nebivolol (Bystolic) 10 MG tablet Take 1 tablet by mouth daily. 04/15/19 25 Active pantoprazole (Protonix) 40 MG EC tablet Take 1 tablet by mouth 2 times a day. 05/24/19 25 Active pravastatin (Pravachol) 80 MG tablet Take 1 tablet by mouth daily. 05/17/19 25 Active pregabalin (Lyrica) 75 MG capsule Take 1 capsule by mouth 2 times a day. 03/16/19 25 Active Calcium Carbonate-Vitamin D 250-3.125 MG-MCG tablet Take 1 tablet by mouth every morning. Active Vibegron (Gemtesa) 75 MG tablet Take 75 mg by mouth daily. Active lisinopril 20 MG tablet Take 1 tablet by mouth daily. Active ondansetron ODT (Zofran-ODT) 4 MG disintegrating tablet Dissolve 1 tablet on the tongue every 6 hours as needed for nausea or vomiting. 20 tablet 07/16/19 25 Active methocarbamol (Robaxin) 500 MG tablet Take 1 tablet by mouth every 6 hours for 5 days. 20 tablet 07/16/19 25 Active naloxone (Narcan) 4 mg/0.1 mL nasal spray 1. Give 1 spray in nostril for no/slow breathing or cannot wake after opioid use 2. Call 911 3. Repeat in other nostril if symptoms continue 1 each 07/16/19 25 Active rivaroxaban (Xarelto) 10 MG tablet Take 1 tablet by mouth daily for 24 doses. 24 tablet 07/16/19 25 Active metroNIDAZOLE (Flagyl) 500 MG tabletIndications: Malignant neoplasm of ascending colon (CMS/HCC) Take one tablet at 1pm, 2pm, and 11pm day BEFORE surgery. SSI COLON. 3 tablet 06/21/19 25 Discontinu ed(Stop Taking at Discharge) neomycin (Mycifradin) 500 MG tabletIndications: Malignant neoplasm of ascending colon (CMS/HCC) Take two tablets (1000 mg) by mouth at 1:00pm, 2:00pm and 11:00pm on the day prior to surgery. SSICOLON 6 tablet 06/21/19 25 Discontinu ed(Stop Taking at Discharge) Nutritional Supplements (Impact Advanced Recovery) liquid Drink 2 cartons a day starting 5 days before surgery. SSICOLON. 2500 mL 06/21/19 25 Discontinu ed(Stop Taking at Discharge) rivaroxaban (Xarelto) 20 MG tablet Take 1 tablet by mouth 1 time each day with dinner. Take with food. Discontinu ed(Stop Taking at Discharge) acetaminophen (Tylenol) 500 MG tablet Take 1 tablet by mouth every 6 hours for 5 days. 20 tablet 07/16/19 25 Active Problems Problem Noted Date Diagnosed Date Malignant neoplasm of colon, unspecified part of colon 07/10/2024 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 (BMI) of 40.0 or higher 06/27/2024 Malignant neoplasm of colon 06/20/2024 Dyspnea on exertion 01/31/2024 Coronary artery disease invo lving [place] coronary artery of [place] heart without angina pectoris 04/05/2023 Encounters Date Type Department Care Team Description 07/18/2024 Telephone [facility] [address] [place] [phone] Mata Smalls MD [facility] 07/18/2024 Telephone [facility] [address] [place] [phone] Mata Smalls MD Appointment 07/15/2024 Travel 07/10/2024 3:22 PM EDT Anesthesia Event [facility] [address] [place] [phone] Richy Smalls MD Latham, Jeremy J, MD 07/10/2024 1:15 PM EDT - 07/10/2024 4:35 PM EDT Surgery [facility] [address] [place] [phone] Mata Smalls MD laparoscopic right colectomy [57735 (CPT )] 07/10/2024 11:10 AM EDT - 07/15/2024 4:46 PM EDT Hospital Encounter [facility] A Inpatient [address] [place] [phone] Mata Smalls MD Malignant neoplasm of ascending colon (CMS/HCC) (Primary Dx); Malignant neoplasm of colon, unspecified part of colon (CMS/HCC) Discharge Disposition: Home or Self Care 07/10/2024 Travel 06/27/2024 Telephone [facility] [address] [place] [phone] Mata Smalls MD 06/23/2024 10:40 AM EDT - 06/23/2024 11:59 PM EDT Hospital Encounter Cardiac Imaging [address] [place] [phone] Preop testing Discharge Disposition: Home or Self Care 06/23/2024 Telephone [facility] [address] [place] [phone] Mata Smalls MD 06/23/2024 Travel 06/22/2024 1:15 PM EDT Pre-Admission Testing [facility] [address] [place] [address] Preop testing (Primary Dx) 06/22/2024 Travel 06/22/2024 Telephone [facility] [address] [place] [phone] Mata Smalls MD Results (CT) 06/20/2024 3:10 PM EDT - 06/20/2024 11:59 PM EDT Hospital Encounter [facility] Radiology [address] [place] [phone] Malignant neoplasm of colon, unspecified part of colon (CMS/HCC) Discharge Disposition: Home or Self Care 06/20/2024 1:15 PM EDT Office Visit [facility] [address] [place] [phone] Mata Smalls MD Malignant neoplasm of ascending colon (CMS/HCC) (Primary Dx); Malignant neoplasm of sigmoid colon (CMS/HCC); 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 (BMI) of 40.0 or higher (CMS/HCC); Dyspnea on exertion; Coronary artery disease involving [place] coronary artery of [place] heart without angina pectoris 06/20/2024 Travel 06/15/2024 Lab Requisition [facility] H Lab [address] [place] [phone] Mata Smalls MD Anemia, unspecified 06/14/2024 Orders Only [facility] [address] [place] [phone] Mata Smalls MD Malignant neoplasm of colon, unspecified part of colon (CMS/HCC) (Primary Dx) from Last 3 Months Family History Medical History Relation Name Comments Anesthesia problems Neg Hx Malig Hyperthermia Neg Hx Social History Tobacco Use Types Packs/Day Years [...] any time in the past 12 m [facility], were you homeless or living in a prison (including now)? No 07/11/2024 Utilities Answer Date Recorded In the past 12 months has th e electric, gas, oil, or water company threatened to shut off services in your home? No 07/11/2024 Comments No Sex and Gender Information Value Date Recorded Sex Assigned at Not on file Legal Sex Female 8:12 PM EDT Gender Identity Not on file Sexual Orientation Not on file Last Filed Vital Signs Vital Sign Reading [...] Mass Index 41.11 07/11/2024 1:50 AM EDT Plan of Treatment Upcoming Encounters Date Type Department Care Team (Late st Contact Info) Description 08/15/2024 3:00 PM EDT Office Visit [facility] [address] [place] [address] Mata Smalls MD [address] [place] [address] Health Maintenance Due Date Last Done Comments [facility]-Bone Density Scan 1945 [facility]-Depression Screening 1945 [facility]-Medicare Annual Wellness (AWV) 1945 [facility]-/Child/Adol SDOH Screenings 1945 [facility]-Hepatitis A Vaccines (1 of 2 - Risk 2-dose series) 1962 [facility]-Pneumococcal Vaccine: 50+ Years (1 of 2 - PCV) 1962 [facility]-Zoster Vaccines (1 of 2) 1962 [facility]-DTaP,Tdap,and Td Vaccines (1 - Tdap) 12/21/1997 12/20/1997 [facility]-RSV Vaccine: 60+ Years or (1 - 1-dose 75+ series) 2018 OSS-GAVNW-54 Vaccine (3 - season) 2023 12/26/2020, 05/02/2020 [facility]- SDOH Screenings 01/11/2025 [facility]-Adult SDOH Screenings 01/11/2025 07/11/2024 [facility]-Influenza Vaccine Completed 11/30/2023 , 12/08/2022, 12/10/2020, Additional history exists [facility]-Obesity Intervention Completed 06/20/2024, 05/24 HPV Vaccines Aged Out No longer eligi ble based on patient's age to complete this topic [facility]-HIB Vaccines Aged Out No longer e ligible based on patient's age to complete this topic [facility]-IPV Vaccines Aged Out No longer e ligible based on patient's age to complete this topic [facility]-Rotavirus Vaccines Aged Out No lo nger eligible based on patient's age to complete this topic Procedures Procedure Name Priority Date/Time Associated Diagnosis Comments XR ABDOMEN 1 VIEW STAT 07/15/2024 10: 14 AM EDT PHOSPHORUS, PLASMA Add-On 07/15/2024 3: 13 AM EDT MAGNESIUM, PLASMA Add-On 07/15/2024 3:1 3 AM EDT C-REACTIVE PROTEIN, PLASMA Routine 07/15/2024 3:13 AM EDT PROCALCITONIN, PLASMA Routine 07/15/2024 3:13 AM EDT BASIC METABOLIC PANEL, PLASMA Routine 07/15/2024 3:13 AM EDT CBC W/O DIFFERENTIAL Routine 07/15/2024 3:13 AM EDT OXYGEN THERAPY Routine 07/14/2024 8:00 AM EDT BASIC METABOLIC PANEL, PLASMA Routine 07/14/2024 3:59 AM EDT CBC W/O DIFFERENTIAL Routine 07/14/2024 3:59 AM EDT OXYGEN THERAPY Routine 07/13/2024 8:00 PM EDT OXYGEN THERAPY Routine 07/13/2024 8:00 AM EDT C-REACTIVE PROTEIN, PLASMA Add-On 07/13/2024 4:46 AM EDT PROCALCITONIN, PLASMA Routine 07/13/2024 4:46 AM EDT PHOSPHORUS, PLASMA Routine 07/13/2024 4: 46 AM EDT MAGNESIUM, PLASMA Routine 07/13/2024 4:4 6 AM EDT BASIC METABOLIC PANEL, PLASMA Routine 07/13/2024 4:46 AM EDT CBC W/O DIFFERENTIAL Routine 07/13/2024 4:46 AM EDT OXYGEN THERAPY [...] UNSOLICITED RESULTS Routine 07/11/2024 7:38 AM EDT PHOSPHORUS, PLASMA Routine 07/11/2024 6: 14 AM EDT MAGNESIUM, PLASMA Routine 07/11/2024 6:1 4 AM EDT BASIC METABOLIC PANEL, PLASMA Routine 07/11/2024 6:14 AM EDT CBC W/O DIFFERENTIAL Routine 07/11/2024 6:14 AM EDT OXYGEN THERAPY Routine 07/10/2024 8:40 PM EDT OXYGEN THERAPY Routine 07/10/2024 8:40 PM EDT OXYGEN THERAPY Routine 07/10/2024 8:40 PM EDT SURGICAL PATHOLOGY EXAM Routine 07/10/2024 5:09 PM EDT Malignant neoplasm of colon, unspecified part of colon (CMS/HCC) ANESTHESIA PERIPHERAL IV PLACEMENT Routine 07/10/2024 4:06 PM EDT PB POINT OF CARE IMAGING PLACEHOLDER Routine 07/10/2024 4:05 PM EDT PB ANESTHESIA NON-TIMED PROCEDURE PLACEHOLDER Routine 07/10/2024 4:05 PM EDT PB ANESTHESIA PLACEHOLDER Routine 07/10/2024 3:39 PM EDT AK AN ELECTIVE ENDOTRACHEAL AIRWAY Routine 07/10/2024 3:39 PM EDT AK LAP,SURG,COLECTOMY,W/R EMVL TERM ILEUM 07/10/2024 3:06 PM EDT Malignant neoplasm of colon, unspecified part of colon (CMS/HCC) PB ANESTHESIA NON-TIMED PROCEDURE PLACEHOLDER Routine 07/10/2024 2:45 PM EDT POCT GLUCOSE METER UNSOLICITED RESULTS Routine 07/10/2024 1:42 PM EDT TYPE AND SCREEN Routine 07/10/2024 12:59 PM EDT CBC W/O DIFFERENTIAL STAT 07/10/2024 12:59 PM EDT CARDIAC DEVICE CHECK - IN CLINIC - PACEMAKER - INTERROGATION ONLY Routine 06/23/2024 11:02 AM EDT Preop testing CT ABDOMEN PELVIS W IV CONTRAST Routine 06/20/2024 4:45 PM EDT Malignant neoplasm of colon, unspecified part of colon (CMS/HCC) CT CHEST W IV CONTRAST Routine 4:45 PM EDT Malignant neoplasm of colon, unspecified part of colon (CMS/HCC) POCT CREATININE ISTAT UNSOLICITED RESULTS Routine 06/20/2024 3:44 PM EDT CBC W/O DIFFERENTIAL Routine 06/20/2024 2:25 PM EDT Malignant neoplasm of ascending colon (CMS/HCC) CEA, SERUM Routine 06/20/2024 2:25 PM EDT Malignant neoplasm of ascending colon (CMS/HCC) COMPREHENSIVE METABOLIC PANEL, PLASMA Routine 06/20/2024 2:25 PM EDT Malignant neoplasm of ascending colon (CMS/HCC) PREALBUMIN, PLASMA Routine 06/20/2024 2: 25 PM EDT Malignant neoplasm of ascending colon (CMS/HCC) SURGICAL PATHOLOGY CONSULT Routine 06/15/2024 1:25 PM EDT Anemia, unspecified from Last 3 Months Results * XR Abdomen 1 View (07/15/2024 [...] Elisabet Vasquez DO on 07/15/2024 11:15 AM Mata Smalls MD IMG XR PROCEDURES Final Result * (ABNORMAL) Procalcitonin, Plasma (07/15/2024 3:13 AM EDT) Only the most recent of2 resultswithin the time period is included. Procalcitonin, Plasma 0.62(H) <0.09 ng/mL 07/15/2024 4:11 AM EDT [facility] Blood Venous blood specimen / Unknown Venipuncture / Unknown 07/15/2024 3:13 AM EDT 07/15/2024 3:35 AM EDT Narrative [facility] - 07/15/2024 4:11 AM EDT [...] predict 28 day mortality risk. Please consult [email or web address] for more information. Test performed at [facility], Core Laboratory. Mata Smalls MD LAB BLOOD ORDERABLES Final Res ult [facility] [address] [place] [address] * (ABNORMAL) CBC (07/15/2024 3:13 AM EDT) Only the most recent of7 resultswithin the time period is included. WBC Count 7.77 3.70 - 10.30 10*3/uL LAB HEMATOLOGY METHOD 07/15/2024 3:45 AM EDT [facility] RBC Count 3.54(L) 3.90 - 5.20 10*6/uL LAB HEMATOLOGY METHOD 07/15/2024 3:45 AM EDT [facility] HGB 9.6(L) 11.2 - 15.7 g/dL LAB HEMATOLOGY METHOD 07/15/2024 3:45 AM EDT [facility] HCT 30.0(L) 34.0 - 45.0 % LAB HEMATOLOGY METHOD 07/15/2024 3:45 AM EDT [facility] Platelet Count 255 155 - 369 10*3/uL LAB HEMATOLOGY METHOD 07/15/2024 3:45 AM EDT [facility] MCV 85 79 - 98 fL LAB HEMATOLOGY METHOD 07/15/2024 3:45 AM EDT [facility] MCH 27.1 26.0 - 32.0 pg LAB HEMATOLOGY METHOD 07/15/2024 3:45 AM EDT [facility] MCHC 32.0 30.7 - 35.5 g/dL LAB HEMATOLOGY METHOD 07/15/2024 3:45 AM EDT [facility] RDW 17.4(H) 11.5 - 14.5 % LAB HEMATOLOGY METHOD 07/15/2024 3:45 AM EDT [facility] MPV 12.3 8.8 - 12.5 fL LAB HEMATOLOGY METHOD 07/15/2024 3:45 AM EDT [facility] nRBC 0.0 <=0.0 per 100 WBCs LAB HEMATOLOGY METHOD 07/15/2024 3:45 AM EDT [facility] Blood Venous blood specimen / Unknown Venipuncture / Unknown 07/15/2024 3:13 AM EDT 07/15/2024 3:34 AM EDT Mata Smalls MD LAB BLOOD ORDERABLES Final Res ult Performing Organization Address [facility] Co de Phone Number [facility] [address] [place] [address] * (ABNORMAL) C-reactive protein (07/15/2024 3:13 AM EDT) Only the most recent of2 resultswithin the time period is included. CRP, Plasma 226.7(H) <=8.0 mg/L 07/15/2024 4:11 AM EDT [facility] Blood Venous blood specimen / Unknown Venipuncture / Unknown 07/15/2024 3:13 AM EDT 07/15/2024 3:35 AM EDT Narrative [facility] - 07/15/2024 4:11 AM EDT This CRP test is appropriate for assessment of infection, systemic inflammation and/or tissue injury. To assess cardiovascular disease risk order high sensitivity CRP (CRPH). Mata Smalls MD LAB BLOOD ORDERABLES Final Res ult Performing Organization Address City/[facility]/ZIP Co de Phone Number [facility] [address] [place] [address] * Phosphorus (07/15/2024 3:13 AM EDT) Only the most recent of4 resultswithin the time period is included. Phosphorus, Plasma 3.1 2.5 - 4.5 mg/dL 07/15/2024 6:48 AM EDT [facility] Blood Venous blood specimen / Unknown Venipuncture / Unknown 07/15/2024 3:13 AM EDT 07/15/2024 3:35 AM EDT us Mata Smalls MD LAB BLOOD ORDERABLES Final Res ult Performing Organization Address [facility] Co de Phone Number [facility] [address] [place] [address] * Magnesium (07/15/2024 3:13 AM EDT) Only the most recent of4 resultswithin the time period is included. Magnesium, Plasma 2.1 1.9 - 2.4 mg/dL 07/15/2024 6:48 AM EDT [facility] Blood Venous blood specimen / Unknown Venipuncture / Unknown 07/15/2024 3:13 AM EDT 07/15/2024 3:35 AM EDT us Mata Smalls MD LAB BLOOD ORDERABLES Final Res ult Performing Organization Address [facility] de Phone Number [facility] [address] [place] [address] * (ABNORMAL) Basic metabolic panel (07/15/2024 3:13 AM EDT) Only the most recent of5 resultswithin the time period is included. Glucose, Plasma 100(H) 74 - 99 mg/dL 07/15/2024 4:11 AM EDT [facility] BUN, Plasma 25(H) 8 - 23 mg/dL 07/15/2024 4:11 AM EDT [facility] Creatinine, Plasma 1.20(H) 0.60 - 1.10 mg/dL 07/15/2024 4:11 AM EDT [facility] BUN/Creatinine Ratio 21 07/15/2024 4:11 AM EDT [facility] Sodium, Plasma 141 136 - 145 mmol/L 07/15/2024 4:11 AM EDT [facility] Potassium, Plasma 4.2 3.6 - 4.9 mmol/L 07/15/2024 4:11 AM EDT [facility] Chloride, Plasma 108(H) 97 - 107 mmol/L 07/15/2024 4:11 AM EDT [facility] CO2, Plasma 22 22 - 29 mmol/L 07/15/2024 4:11 AM EDT [facility] Anion Gap 11 6 - 16 mmol/L 07/15/2024 4:11 AM EDT [facility] Total Calcium, Plasma 8.6(L) 8.9 - 10.2 mg/dL 07/15/2024 4:11 AM EDT [facility] eGFRcr 45.6 mL/min/1.7 3m*2 07/15/2024 4:11 AM EDT [facility] Comment:Reported eGFRcr in m L/min/1.73m2 is based the CKD-EPI 2020 equation that does not use a race coefficient. Blood Venous blood specimen / Unknown Venipuncture / Unknown 07/15/2024 3:13 AM EDT 07/15/2024 3:35 AM EDT us Mata Smalls MD LAB BLOOD ORDERABLES Final Res ult Performing Organization Address [facility] Co de Phone Number [facility] [address] [place] [address] * Anti Xa Level Unfractionated Heparin (07/12/2024 11:21 AM EDT) Anti Xa Level Unfractionated Heparin <0.11 <1.00 IU/mL LAB COAGULATION METHOD 07/12/2024 12:19 PM EDT [facility] Blood Venous blood specimen / Unknown Venipuncture / Unknown 07/12/2024 11:21 AM EDT 07/12/2024 11:41 AM EDT Narrative [facility] - 07/12/2024 12:19 PM EDT Therapeutic Range: UFH Full Dose and ACS/IN protocols*: 0.30 - 0.70 IU/mL UFH Low Dose protocol*: 0.25 - 0.50 IU/mL UFH prophylaxis: Not established us Daniel Porter MD LAB BLOOD ORDERABLES Final Resul t Performing Organization Address [facility]/ZIP Co de Phone Number [facility] [address] [place] [address] * (ABNORMAL) POCT glucose meter (07/11/2024 7:38 AM EDT) Only the most recent of2 resultswithin the time period is included. Pathologist [facility] POCT Glucose 174(H) 74 - 99 mg/dL [...] Comment 07/11/2024 7:39 AM EDT [facility] Drug Room Clerk ID Bambi Collazo 07/12/19 7:39 AM EDT [facility]ALTH[facility]ARE LAB Device ID [id number] 07/11/2024 7:39 AM EDT [facility] Specimen Type POC Capillary 07/11/2024 7:39 AM EDT [facility] Blood Capillary blood specimen / Unknown 07/11/2024 7:38 AM EDT 07/11/2024 7:39 AM EDT Mata Smalls MD LAB POINT OF CARE TE ST DOCKED DEVICE UNSOLICITED RESULTS Final Result [facility] [address] [place] [address] * Surgical Pathology Exam (07/10/2024 5:09 PM EDT) Pathologist [facility] Case Report Surgical Pathology Case: [id number] Authorizing Provider: Mata Smalls MD Collected: 07/10/2024 1709 Ordering Location: [facility] OPERATING ROOM Received: 07/11/2024 0810 Pathologist: Gayatri Granados MD Specimen: Other (specify site), Right Colon 3:01 PM EDT [facility] Final Diagnosis A. RIGHT COLON, RESECTION: - ADENOCARCINOMA, pT3, pN0, SEE SYNOPTIC CHECKLIST. - MARGINS NEGATIVE FOR TUMOR. - THIRTEEN LYMPH NODES NEGATIVE FOR MALIGNANCY, (0/13). - SESSILE SERRATED ADENOMA. 5 3:[address] [facility] at 1501 EDT Synoptic Checklist COLON [...] pN Category: pN0 5 3:[address] [facility] Tumor Blocks Tumor blocks: A9 5 3:[address] [facility] Clinical Information Malignant neoplasm of colon, unspecified part of colon (CMS/HCC) [C18.9] 5 3:[address] [facility] Special and Immunohistochemical Stains Immunostains were performed that in conjunction with the morphology supports the diagnosis. IHC: A9-2 CK20: focal positive staining in tumor cells A9-3 CDX-2: focal weak positive staining in tumor cells All controls show appropriate reactivity. All immunohistochemis try, in situ hybridization, and histochemical tests were developed by and are performed at the [facility], [address] [place] [address]. All tests reported here, except those addressing [...] on decalcified specimens. 5 3:01 PM EDT [facility] Gross Description A. RIGHT COLON [...] follows: A1: Proximal margin, en face A2: Pv Installer Tech terminal ileum A3: Ileocecal valve A4: Appendiceal resection margin A5: Representatively colonic mucosa A6: Polypoid lesion #1 A7: Polypoid lesion # 2, bisected A8: Polypoid lesion # 3 A9: Mass to blue inked area of puckering A10: Mass with possible pericolonic soft tissue involvement A11: Mass to uninvolved mucosa with area of tattooing A12-A13: Pv Installer Tech mass A14: Distal margin, en face A15: [...] lymph node candidates Cold Time: 15h 01m BENTIO Palencia (ASCP) 5 3:01 PM EDT [facility] Tissue Topography unknown / Unknown 07/10/2024 5:09 PM EDT 07/11/2024 8:10 AM EDT Comment:Pre-op diagnosis: Malignant neoplasm of colon, unspecified part of colon (CMS/HCC) [C18.9] us Mata Smalls MD LAB PATHOLOGY ORDERABLES Final Result [facility] [address] [place] [address] * Peripheral IV (07/10/2024 4:06 PM EDT) Richy Cavazos MD - 07/10/2024 4:06 PM EDT Richy Smalls MD 07/10/2024 4:06 PM Peripheral IV Date/Time: 07/10/2024 4:06 PM Inserted by: Richy Smalls MD Placement Needle size: 16 G Location: hand Local anesthetic: injectable Site prep: alcohol Technique: anatomical landmarks Attempts: 1 Richy Smalls MD ANESTHESIA ORDERABLES Final Res ult * PB ANESTHESIA NON-TIMED PROCEDURE PLACEHOLDER, PB POINT OF CARE IMAGING PLACEHOLDER (07/10/2024 4:05 PM EDT) Richy Cavazos MD - 07/10/2024 4:05 PM EDT Richy [...] Staffing Performed: Resident Anesthesiologist: Richy Smalls MD Richy Smalls MD ANESTHESIA ORDERABLES Edited Re sult - Final * AK AN ELECTIVE ENDOTRACHEAL AIRWAY, PB ANESTHESIA PLACEHOLDER (07/10/2024 3:39 PM EDT) Richy Cavazos MD - 07/10/2024 3:39 PM EDT Richy [...] Atkins MD ANESTHESIA ORDERABLES Final Resu lt * Type and screen (07/10/2024 12:59 PM [...] TEST ORDERABLES Final Result Performing Organization Address City/State/[facility] Co de Phone Number BLOOD BANK [address] [place] [address], * CARDIAC DEVICE CHECK - IN CLINIC - PACEMAKER - INTERROGATION ONLY (06/23/2024 11:02 AM EDT) Anatomical Region Laterality Modality Other Narrative 06/23/2024 1:02 PM EDT [facility]: Pre-operative CIED Report Assessment [...] recommendations. Support report can be found in [employer] media file. us Gifty OLIVER CV IMPLANTABLE CARDIAC DEV ICE PROCEDURES Final Result * CT Abdomen Pelvis w IV Contrast [...] Total DLP (Dose-Length Product): 1068.95 mGy.cm (accession [id number]), 1068.95 mGy.cm (accession [id number]) Please note: The reported value represents the [...] Total DLP (Dose-Length Product): 1068.95 mGy.cm (accession [id number]),1068.95 mGy.cm (accession [id number]) Please note: The reported valuerepresents the total [...] Total DLP (Dose-Length Product): 1068.95 mGy.cm (accession [id number]), 1068.95 mGy.cm (accession [id number]) Please note: The reported value represents the [...] Total DLP (Dose-Length Product): 1068.95 mGy.cm (accession [id number]),1068.95 mGy.cm (accession [id number]) Please note: The reported valuerepresents the total [...] mL/min/1. 73m*2 06/20/2024 3:47 PM EDT [facility] Drug Room Clerk ID Consuelo Benitez 06/20/2024 3:47 PM EDT [facility] Device ID [id number] 06/20/2024 3:47 PM EDT [facility]ALTH[facility] Comment 06/20/2024 3:47 PM EDT [facility] Comment:Testing performed on i-STAT at the point of care. Reported eGFRcr in mL/min/1.73m2 is based the CKD-EPI 2020 equation that does not use a race coefficient. Blood Venous blood specimen / Unknown 06/20/2024 3:44 PM EDT 06/20/2024 3:47 PM EDT us Generic Provider Poct LAB POINT OF CARE TEST DOCKED DEVICE UNSOLICITED RESULTS Final Result Performing Organization Address [facility]/ZIP Co de Phone Number [facility] [address] [place] [address] * Prealbumin, Plasma (06/20/2024 2:25 PM EDT) Prealbumin, Plasma 22.3 20.0 - 41.0 mg/dL 06/20/2024 3:[address] [facility] Blood Venous blood specimen / Unknown Venipuncture / Unknown 06/20/2024 2:25 PM EDT 06/20/2024 3:05 PM EDT Mata Smalls MD LAB BLOOD ORDERABLES Final Res ult Performing Organization Address City/[facility]/ZIP Co de Phone Number [facility] [address] [place] [address] * (ABNORMAL) CEA, Serum (06/20/2024 2:25 PM EDT) CEA, Serum 4.3(H) <4.0 ng/mL 06/20/2024 3:50 PM EDT [facility] Blood Venous blood specimen / Unknown Venipuncture / Unknown 06/20/2024 2:25 PM EDT 06/20/2024 3:05 PM EDT Narrative [facility] - 06/20/2024 3:50 PM EDT Normal range for smokers: < 5.5 ng/ml Normal range for non-smokers: <=4.0 ng/ml Performed by Shirin electrochemiluminescent immunoassay. Results obtained with different test methods or kits cannot be used interchangeably. us Mata Smalls MD LAB BLOOD ORDERABLES Final Res ult [facility] [address] [place] [address] * (ABNORMAL) Comprehensive Metabolic Panel, Plasma (06/20/2024 2:25 PM EDT) [facility] Glucose, Plasma 95 74 - 99 mg/dL 06/20/2024 3:37 PM EDT [facility] BUN, Plasma 20 8 - 23 mg/dL 06/20/2024 3:37 PM EDT [facility] Creatinine, Plasma 1.21(H) 0.60 - 1.10 mg/dL 06/20/2024 3:37 PM EDT [facility] BUN/Creatinine Ratio 17 06/20/2024 3:37 PM EDT [facility] Sodium, Plasma 139 136 - 145 mmol/L 06/20/2024 3:37 PM EDT [facility] Potassium, Plasma 4.9 3.6 - 4.9 mmol/L 06/20/2024 3:37 PM EDT [facility] Chloride, Plasma 103 97 - 107 mmol/L 06/20/2024 3:37 PM EDT [facility] CO2, Plasma 27 22 - 29 mmol/L 06/20/2024 3:37 PM EDT [facility] Anion Gap 9 6 - 16 mmol/L 06/20/2024 3:37 PM EDT [facility] Total Calcium, Plasma 9.8 8.9 - 10.2 mg/dL 06/20/2024 3:37 PM EDT [facility] Total Protein 7.0 6.3 - 7.9 g/dL 06/20/2024 3:37 PM EDT [facility] Albumin, Plasma 4.0 3.5 - 5.2 g/dL 06/20/2024 3:37 PM EDT [facility] AST, Plasma 19 10 - 35 U/L 06/20/2024 3:37 PM EDT [facility] ALT, Plasma 17 10 - 35 U/L 06/20/2024 3:37 PM EDT [facility] Alkaline Phosphatase, Plasma 85 46 - 142 U/L 06/20/2024 3:37 PM EDT [facility] Total Bilirubin, Plasma 0.4 0.2 - 1.1 mg/dL 06/20/2024 3:37 PM EDT [facility] eGFRcr 45.1 mL/min/1.7 3m*2 06/20/2024 3:37 PM EDT [facility] Comment:Reported eGFRcr in m L/min/1.73m2 is based the CKD-EPI 2020 equation that does not use a race coefficient. Blood Venous blood specimen / Unknown Venipuncture / Unknown 06/20/2024 2:25 PM EDT 06/20/2024 3:05 PM EDT Mata Smalls MD LAB BLOOD ORDERABLES Final Res ult [facility] [address] [place] [address] * Surgical Pathology Consult (06/15/2024 1:25 PM EDT) Case Report Sugical Pathology Consult Case: [id number] Authorizing Provider: Mata Smalls MD Collected: 06/15/2024 1325 Ordering Location: [facility] Received: 06/15/2024 1326 Pathologist: Mick Dash MD Specimen: Colon, [id number] 2:47 PM EDT [facility] Final Diagnosis (OUTSIDE CASE: [id number], PARTS C&D; COLLECTED ON 06/07/2024): COLON, HEPATIC FLEXURE, BIOPSY (C): - ADENOCARCINOMA, POORLY DIFFERENTIATED (SEE COMMENT) SIGMOID COLON, POLYP, BIOPSY (D): - ADENOCARCINOMA, POORLY DIFFERENTIATED (SEE COMMENT) 2:47 PM EDT [facility] at 1447 EDT Comment The clinical impression [...] involvement by a tumor with enteric differentiation. 5 2:47 PM EDT [facility] Clinical Information D64.9 - Anemia, unspecified [ICD-10-CM] 2:47 PM EDT [facility] Special and Immunohistochemical Stains Immunohistochemica l stains that have been performed and interpreted by the outside institution (not reviewed here), have been reported as follows: Positive: CDX2, SATB2 (focal, weak) Negative: CK7, CK20, SYNAPTOPHYSIN, CD56 MMR proteins; IHC interpretation (per report) Loss of nuclear expression of MLH1 and PMS2 2:47 PM EDT [facility] Gross Description A. [id number] Received along with a corresponding pathology report from [facility] are 2 slides labeled outside case: [id number] collected on 06/07/2024. 2:47 PM EDT [facility] Note: A resident was involved in the service. I attest I examined the relevant preparations for the specimens and confirmed the diagnosis or interpretation. 2:47 PM EDT [facility] Tissue Colon structure / Unknown 06/15/2024 1:25 PM EDT 06/15/2024 1:26 PM EDT Mata Smalls MD LAB PATHOLOGY ORDERABLES Final Result Performing Organization Address City/State/[facility] Co de Phone Number [facility] [address] [place] [address] from Last 3 Months Insurance [facility] MEDICARE [place] Advance Directives * Full Code (Latest Code Status on File) Date Activated Date Inactivated Comments 07/10/2024 8:40 PM 07/15/2024 6:51 PM Question Answer Comments I have reviewed the capacity from the link above and, if needed, have updated to appropriate status: Yes Care Teams Machine Stripper Relationship Specialty Start Date End Date Jose Mendoza MD [address] [place] [address] PCP - General Internal Medicine 05/23/24
--- OUTSIDE RECORDS SUMMARY | 2024-08-10 17:26 | XMS_ITS | Encounter Summary ---
Author Organization Healthcare Address [address] [place] [address] Care Team Providers Care Contact Assembler Name Role Phone Jose Mendoza MD Primary Care Provider [phone] Reason for Visit * Reason Onset Date Comments Results 06/22/2024 CT Encounter Details Date Type Department Care Team ([facility] st Contact Info) Description 06/22/2024 Telephone [facility] [address] [place] [address] Mata Smalls MD [address] [facility] [address] [place] [address] Results (CT) Social History Tobacco Use Types Packs/Day Years [...] Telephone Encounter - Amber Goel RN - 06/27/2024 4:[address] Raymond Smalls called and spoke with pt during 06/27 clinic * Telephone Encounter - Willa Alex - 06/26/2024 8:25 AM EDT Status Update Call #1 1st call regarding the status of the initial request. Best contact number: [phone] Optimal time of day to reach caller: Anytime Additional comments/information from caller: Patient calling back to check on her CT results. States she never received a call from Dr. Smalls on Wednesday. Note: Please do not reply to this message. Follow-up communication and further actions as a result of this message need to be communicated with the patient directly, if the patient is not active onMyChart. If the patient is active on MyChart, they will receive notification of the communication/outcome via MyChart. * Telephone Encounter - Amber Goel RN - 06/23/2024 4:09 PM EDT Called and spoke with pt. Notified that provider will reach out to her w/ results when out of OR. Pt verbalized understanding. Will check back Wednesday if she's not heard back from anyone. No further questions or concerns. * Telephone Encounter - Willa Alex - 06/22/2024 2:52 PM EDT Patient Phone Message Reason for Call: Patient calling to discuss results from her CT scan. Best contact number and optimal time of day to reach caller: [phone] Note: Please do not reply to this message. Follow-up communication and further actions as a result of this message need to be communicated with the patient directly, if the patient is not active onMyChart. If the patient is active on MyChart, they will receive notification of the communication/outcome via [employer]. documented in this encounter Plan of Treatment Upcoming Encounters Date Type Department Care Team (Late st Contact Info) Description 08/15/2024 3:00 PM EDT Office Visit [facility] Multidisciplinary Oncology Clinic [address] [place] [address] Mata Smalls MD [address] [place] [address] documented as of this encounter Visit Diagnoses Not on filedocumented in this encounter Additional Health Concerns Assessment Noted Time A fall risk assessment has been complete d for the patient 06/20/2024 1:33 PM EDT A Body Mass Index follow-up plan has been documented for the patient 06/28/2024 4:06 PM EDT documented as of this encounter Care Teams Contact Assembler Relationship Specialty Start Date End Date Jose Mendoza MD [address] [place] [address] PCP - General Internal Medicine 05/23/24 documented as of this encounter
--- NOTE | 2024-08-10 17:29 | CT_ITS ---
PROCEDURE INFORMATION: Exam: CTA Chest With Contrast Exam date and time: 08/10/2024 6:25 PM Age: 79 years old Clinical indication: Dyspnea; Additional info: Dyspnea history of chf and renal failure TECHNIQUE: Imaging protocol: Computed tomographic angiography of the chest with contrast. Exam focused on the arteries. 3D rendering (Not supervised by radiologist): MIP and/or 3D reconstructed images were created by the technologist. Radiation optimization: All CT scans at this facility use at least one of these dose optimization techniques: automated exposure control; mA and/or kV adjustment per patient size (includes targeted exams where dose is matched to clinical indication); or iterative reconstruction. Contrast material: ISOVUE; Contrast volume: 70 ml; Contrast route: INTRAVENOUS (IV); COMPARISON: CT ANGIO CHEST PE PROTOCOL 12/31/2023 11:44 AM FINDINGS: Tubes, catheters and devices: Stable pacemaker. Pulmonary arteries: No central or segmental pulmonary arterial intraluminal filling defects identified. Aorta: Atherosclerotic calcification of thoracic aorta without aneurysm or obvious dissection. Lungs: Subtle perihilar interstitial ground-glass opacities. Pleural spaces: Unremarkable. No pneumothorax. No pleural effusion. Heart: Unremarkable. No cardiomegaly. No pericardial effusion. Coronary arteries: Atherosclerotic calcification of coronary arteries. Lymph nodes: Unremarkable. No enlarged lymph nodes. Bones/joints: Unremarkable. No acute fracture. Soft tissues: Unremarkable. IMPRESSION: 1. No central or segmental pulmonary arterial embolism identified. 2. Mild CHF/pulmonary edema and/or air trapping.
[2024-08-10 17:41] LABS: Basophils % 0.4 % (0.1-2.0); Eosinophils # 0.2 Kmm3 (0.0-0.4); Eosinophils % 2.5 % (0.1-12.0); Hematocrit 37.4 % (37.0-47.0); Hemoglobin 11.5 g/dL (12.2-16.2); Immature Granulocytes # 0.03 10^3uL; Immature Granulocytes % 0.4 %; Lymphocytes % 25.9 % (10-50); Mean Corpuscular HGB Conc 30.7 g/dL (31.8-35.4); Mean Corpuscular Hemoglobin 26.6 pg (27.0-31.2); Mean Corpuscular Volume 86.4 fl (81-99); Monocytes # 0.9 K/mm3 (0.1-1.0); Neutrophils # 4.5 K/mm3 (1.8-7.8); Neutrophils % 58.8 % (37.0-80.0); Nucleated Red Blood Cells # 0 10^3/uL; Nucleated Red Blood Cells % 0 %; Platelet Count 265 K/mm3 (142-424); Red Blood Count 4.33 M/mm3 (4.20-5.40); Red Cell Distribution Width 17.8 % (11.5-17.5); Red Cell Distribution Width-SD 56.2 fL; White Blood Count 7.6 K/mm3 (4.8-10.8)
[2024-08-10 18:01] LABS: Coronavirus 19, PCR Not Detected (NotDetected); Influenza A, PCR Not Detected (NotDetected); Influenza B, PCR Not Detected (NotDetected); Microscopic, Urine URINE MICROSCOPIC (MICROSCOPIC)
[2024-08-10 18:03] LABS: Alanine Aminotransferase 17 U/L (12-78); Albumin Level 4.1 g/dl (3.5-5.0); Albumin/Globulin Ratio 1.2 (1.1-1.8); Alkaline Phosphatase 80 U/L (38-126); Anion Gap 8.2 mEq/L (5-15); Aspartate Amino Transferase 32 U/L (14-36); Bilirubin,Total 0.6 mg/dl (0.2-1.3); Blood Urea Nitrogen 19 mg/dl (7-17); Calcium 10.1 mg/dl (8.4-10.2); Carbon Dioxide 27 mmol/L (22.0-30.0); Chloride 113 mmol/L (98-107); Creatinine Clearance Estimated 53 mL/min (50-200); Estimated Glomerular Filt Rate 39 ml/min (>60); GFR (African American) 48 ML/MIN (>60); Globulin 3.5 g/dL (1.3-3.2); Glucose 115 mg/dl (74-100); Potassium 4.2 mmoL/L (3.5-5.1); Sodium 144 mmol/L (136-145); Total Protein,Serum 7.6 g/dl (6.3-8.2)
[2024-08-10 18:06] LABS: Appearance,Urine CLEAR (Clear); Bilirubin,Urine Negative (Negative); Blood, Urine Negative (Negative); Color,Urine YELLOW (Yellow); Glucose,Urine (UA) Negative (Negative); Ketones,Urine Negative (Negative); Leukocyte Esterase,Urine Negative (Negative); Nitrate,Urine Negative (Negative); Protein,Urine Negative (Negative); Specific Gravity, Urine 1.015 (1.005-1.030)
--- NOTE | 2024-08-10 18:09 | PC.NURSE ---
Provider at bed side.
[2024-08-10 18:15] LABS: NT Pro Brain Natriuretic Pep. 1230 pg/mL (0-450)
[2024-08-10 18:20] LABS: Procalcitonin 0.058 ng/mL (0.0-2.0)
[2024-08-10] MEDS: IOPAMIDOL-370 (76%);100ML BOTTLE 70 ML IV (18:26)
[2024-08-10] MEDS: 0.9 % SODIUM CHLORIDE 50 ML VIAL IV (18:26)
[2024-08-10] MEDS: SODIUM CHLORIDE 0.9% 10ML SYR (RAD ONLY) 10 ML IV (18:26)
[2024-08-10 18:31] LABS: INR 1.03 (0.9-1.1); Prothrombin Time 11.4 seconds (10.1-12.5); Troponin I < 0.01 ng/ml (0.00-0.034)
[2024-08-10 18:33] LABS: Bacteria,Urine 1+ /lpf; RBC,Urine 20-50 #/hpf (0-3); Squamous Epithelial Cell,Urine 50-100 #/hpf (0-5)
--- NOTE | 2024-08-10 18:35 | PC.NURSE ---
Doppelered PP/DP, Strong pulse noted on Doppler. Pulses marked.
[2024-08-10] MEDS: FUROSEMIDE 40MG/4ML VIAL 80 MG IV (18:37)
--- NOTE | 2024-08-10 18:54 | PC.NURSE ---
purewick has been placed
== END 2024-08-10 20:26 | disposition home or self-care (01) ==
PROVIDERS: Physician Assistant; Emergency Provider Emergency Medicine; PCP Internal Medicine Adolescent Medicine
DX: R06.02 Shortness of breath (principal); I11.0 Hypertensive heart disease with heart failure; I50.33 Acute on chronic diastolic (congestive) heart failure; N18.9 Chronic kidney disease, unspecified; Z95.0 Presence of cardiac pacemaker
CPT/HCPCS: 71275; 80053; 81001; 83880; 84145; 84484; 85025; 85610; 87636; 93005; 96374; 99285; J1938; Q9967

== ENCOUNTER 2024-11-06 15:15 | Outpatient (CLI) | payer MEDICARE, MEDICAID, SELFPAY ==
--- OUTSIDE RECORDS SUMMARY | 2024-10-17 10:30 | XMS_ITS | Encounter Summary ---
Author Organization [facility] Address [address] [place] [address] Care Team Providers Care Distribution Center Associate Name Role Phone Jose Mendoza MD Primary Care Provider [phone] Reason for Visit * Reason Comments Pacemaker Check Coronary Artery Disease Pt states she is here today for follow up CAD. SOA on exertion. No chest pain, palpitations or dizziness. Very weak. Encounter Details Date Type Department Care Team (Late st Contact Info) Description 10/17/2024 10:30 AM EDT Office Visit [facility] CARDIOLOGY [address] [place] [address] Reanna Krishnamurthy MD [address] [place] [address] Coronary artery disease involving [place] coronary artery of [place] heart without angina pectoris (Primary Dx); Bilateral [...] Surgeon: Dewayne Rios MD; Location: [facility] CATH INVASIVE LOCATION; Service: Cardiovascular; Laterality: N/A; [...] this visit: 1. Coronary artery disease involving [place] coronary artery of [place] heart without angina pectoris(Primary) 2. Bilateral leg [...] 01/17/2025) for Recheck symptoms, Patient OK with TRANSPORTATION SUPERVISOR visit. Sarai Krishnamurthy MD Cardiology and Sleep [facility] 10/17/2024 Please note that this explicitly [...] Description 01/25/2025 8:30 AM EST Office Visit [facility] CARDIOLOGY [address] [place] [address] Ayesha Galo, HEALTH AND SAFETY TRAINER [address] [place] [address] [place] [address] documented as of this encounter Visit Diagnoses Diagnosis Coronary artery disease involving [place] coronary artery of [place] heart without angina pectoris- Primary Bilateral leg edema Edema Presence of cardiac pacemaker Cardiac pacemaker in situ documented in this encounter Care Teams Distribution Center Associate Relationship Specialty Start Date End Date Jose Mendoza MD [address] [facility] [address] [place] [address] PCP - General Adolescent Medicine 08/03/22 documented as of this encounter
--- OUTSIDE RECORDS SUMMARY | 2024-11-06 15:17 | XMS_ITS | Encounter Summary ---
Author Organization Healthcare Address [address] [place] [address] Care Team Providers Care Director Hair Name Role Phone Jose Mendoza MD Primary Care Provider [phone] Encounter Details Date Type Department Care Team (Late st Contact Info) Description 06/15/2024 Lab Requisition [facility] [address] [place] [address] Mata Smalls MD [address] [address] Anemia, unspecified Social History Tobacco Use Types Packs/Day Years Used Date Smoking Tobacco: Never Assessed Comments Unknown Sex and Gender Information Value Date Recorded Sex Assigned at Not on file Legal Sex Female 8:12 PM EDT Gender Identity Not on file Sexual Orientation Not on file documented as of this encounter Plan of Treatment Upcoming Encounters Date Type Department Care Team (Latest Contact Info) Description 01/09/2025 12:20 PM EST Appointment [facility] Radiology [address] [place] [address] 01/09/2025 2:30 PM EST Office Visit [facility] [address] [place] [address] Mata Smalls MD [address] [address] 01/09/2025 2:30 PM EST Clinical Support [facility] [address] [place] [address] documented as of this encounter Procedures Procedure Name Priority Date/Time Associated Diagnosis Comments SURGICAL PATHOLOGY CONSULT Routine 06/15/2024 1:25 PM EDT Anemia, unspecified documented in this encounter Results * Surgical Pathology Consult (06/15/2024 1:25 PM EDT) Case Report Sugical Pathology Consult Case: [id number] Authorizing Provider: Mata Smalls MD Collected: 06/15/2024 1325 Ordering Location: [facility] Lab Received: 06/15/2024 1326 Pathologist: Mick Dash MD Specimen: Colon, [id number] 2:47 PM EDT [facility] Final Diagnosis (OUTSIDE CASE: [id number], PARTS C&D; COLLECTED ON 06/07/2024): COLON, HEPATIC FLEXURE, BIOPSY (C): - ADENOCARCINOMA, POORLY DIFFERENTIATED (SEE COMMENT) SIGMOID COLON, POLYP, BIOPSY (D): - ADENOCARCINOMA, POORLY DIFFERENTIATED (SEE COMMENT) 2:47 PM EDT [facility] at 1447 EDT Comment The clinical impression [...] tumor with enteric differentiation. 2:47 PM EDT [facility] Clinical Information D64.9 - Anemia, unspecified [ICD-10-CM] 2:47 PM EDT [facility] Special and Immunohistochemical Stains Immunohistochemica l stains that have been performed and interpreted by the outside institution (not reviewed here), have been reported as follows: Positive: CDX2, SATB2 (focal, weak) Negative: CK7, CK20, SYNAPTOPHYSIN, CD56 MMR proteins; IHC interpretation (per report) Loss of nuclear expression of MLH1 and PMS2 2:47 PM EDT [facility] Gross Description A. [id number] Received along with a corresponding pathology report from [facility] Laboratory are 2 slides labeled outside case: [id number] collected on 06/07/2024. 2:47 PM EDT [facility] Note: A resident was involved in the service. I attest I examined the relevant preparations for the specimens and confirmed the diagnosis or interpretation. 2:47 PM EDT [facility] Tissue Colon structure / Unknown 06/15/2024 1:25 PM EDT 06/15/2024 1:26 PM EDT us Mata Smalls MD LAB PATHOLOGY ORDERABLES Final Result [facility] [address] [place] [address] documented in this encounter Visit Diagnoses Diagnosis Anemia, unspecified documented in this encounter Care Teams Director Hair Relationship Specialty Start Date End Date Jose Mendoza MD [address] [place] [address] [place] [address] PCP - General Internal Medicine 05/23/24 documented as of this encounter
--- OUTSIDE RECORDS SUMMARY | 2024-11-06 15:17 | XMS_ITS | Encounter Summary ---
Author Organization [facility] Address [address] [place] [address] Care Team Providers Care Casino Cage Manager Name Role Phone Jose Mendoza MD Primary Care Provider [phone] Encounter Details Date Type Department Care Team (Latest Contact Info) Description 10/17/2024 Travel Social History Tobacco Use Types Packs/Day Years Used Date Smoking Tobacco: Never Passive Smoke Exposure: Never Smokeless Tobacco: Never Alcohol Use Standard Drinks/Week Comments Never 0 [...] Description 01/25/2025 8:30 AM EST Office Visit [facility] CARDIOLOGY [address] [place] [address] Ayesha Galo, GRAPHIC ART SALES REPRESENTATIVE [address] [place] [address] documented as of this encounter Visit Diagnoses Not on filedocumented in this encounter Care Teams Casino Cage Manager Relationship Specialty Start Date End Date Jose Mendoza MD [address] [place] [address] PCP - General Adolescent Medicine 08/03/22 documented as of this encounter
--- OUTSIDE RECORDS SUMMARY | 2024-11-06 15:17 | XMS_ITS | Encounter Summary ---
[facility] Organization [facility] Address [address] [place] [address] Care Team Providers Care Mini Lab Operator Name Role Phone Jose Mendoza MD Primary Care Provider [phone] Reason for Visit * Reason Onset Date Comments AYESHA MARADIAGA- REQUEST 08/15/2024 Encounter Details Date Type Department Care Team (Late st Contact Info) Description 08/15/[address] [facility] C[facility] [address] [place] [address] Ayesha Maradiaga, GIS WEB DEVELOPER [address] [place], [place] [id number] AYESHA MARADIAGA- REQUEST Social History Tobacco Use Types Packs/Day Years [...] encounter Miscellaneous Notes * Telephone Encounter - Deysi [place] RegSched Rep - 08/15/2024 10:08 AM EDT Spoke to patient. She reports SOB and fatigue. She did have cancer surgery and states her surgeon suggested to follow up with us. She request to see Ayesah. Scheduled for Wednesday08/18/24. * Telephone Encounter - Bakari Dixon RegSched Rep - 08/15/2024 9:53 AM EDT Caller: Gina Stone Relationship to patient: Self Best call back number: [phone] Chief complaint: PATIENT HAVING SHORTNESS OF BREATHE AND IS WANTING SEEN SOONER PLEASE ADVISE. Type of visit: FOLLOW-UP Requested date: APARNA If rescheduling, when is the original appointment: 10.04.24 documented in this encounter Plan of Treatment Upcoming Encounters Date Type Department Care Team (Late st Contact Info) Description 01/25/2025 8:30 AM EST Office Visit [facility] [address] [place] [address] Ayesha Maradiaga APRN [address] [place] [address] [place] [address] documented as of this encounter Visit Diagnoses Not on filedocumented in this encounter Care Teams Mini Lab Operator Relationship Specialty Start Date End Date Jose Mendoza MD [address] [place] [address] PCP - General Adolescent Medicine 08/03/22 documented as of this encounter
--- OUTSIDE RECORDS SUMMARY | 2024-11-06 15:17 | XMS_ITS | Clinical Summary ---
[facility] Organization [facility] Address [address] [place] [address] Care Team Providers Care Bias Cutter Helper Name Role Phone Jose Mendoza MD Primary Care Provider [phone] Allergies Active Allergy Reactions Criticality Noted Date Comments Rosuvastatin Myalgia Low 08/03/2022 Diltiazem Palpitations Medium 12/23/2021 Fluvastatin Myalgia Low 08/03/2022 Metoprolol Unknown - Low Severity Low 08/03/2022 Oseltamivir Dizziness Low 04/05/2023 Simvastatin Unknown - Low Severity Low 08/03/2022 Medications Gemtesa 75 MG tablet Take 1 tablet by mouth Daily. 3 Active Xarelto 20 MG tablet Take 1 tablet by mouth Daily. 3 Active pregabalin (LYRICA) 75 MG capsule TAKE ONE CAPSULE BY MOUTH TWICE DAILY FOR PAIN MAY CAUSE DROWSINESS 3 Active pravastatin (PRAVACHOL) 80 MG tablet Take 1 tablet by mouth Every Night. 3 Active pantoprazole (PROTONIX) 40 MG EC tablet Take 1 tablet by mouth 2 (Two) Times a Day. 3 Active nebivolol (BYSTOLIC) 10 MG tablet Take 1 tablet by mouth Daily. 3 Active HYDROcodone-murray taminophen (NORCO) 7.5-325 MG per tablet TAKE ONE TABLET BY MOUTH EVERY 6 HOURS MAY CAUSE DROWSINESS 3 Active isosorbide mononitrate (IMDUR) 60 MG 24 hr tablet Take 1 tablet by mouth Daily. 3 Active alendronate (FOSAMAX) 70 MG tablet 1 tab(s) orally once a week for 90 days Active furosemide (LASIX) 40 MG tablet Take 0.5 tablets by mouth Daily. 4 Active ferrous sulfate (FeroSul) 325 (65 FE) MG tablet TAKE 1 TABLET TWICE DAILY for 90 Active lisinopril (PRINIVIL,ZESTR IL) 40 MG tablet Take 1 tablet by mouth Daily. Active aspirin 81 MG chewable tablet Chew 1 tablet Daily. Active Calcium Carb-Cholecalci ferol (OS-EHSAN PO) Take 1 tablet by mouth 2 (Two) Times a Day. Active multivitamin with minerals (MULTIVITAMIN ADULT PO) Take 1 tablet by mouth Daily. Active methocarbamol (ROBAXIN) 500 MG tablet Take 1 tablet by mouth 3 (Three) Times a Day As Needed for Muscle Spasms. Active baclofen (LIORESAL) 10 MG tablet Take 1 tablet by mouth 3 (Three) Times a Day. Active potassium chloride 10 MEQ CR tabletIndicatio ns:Dyspnea on exertion,Bilate ral leg edema,Acute diastolic CHF (congestive heart failure),Beasley ry artery disease involving eagle coronary artery of eagle heart without angina pectoris Take 1 tablet by mouth Daily. 90 tablet 3 5 Active amoxicillin (AMOXIL) 875 MG tablet Every 12 (Twelve) Hours. 5 Active hydroCHLOROthia zide 25 MG tablet Take 0.5 tablets by mouth Daily. 10/18/19 25 Discontin ued(*Ther apy completed ) spironolactone (ALDACTONE) 50 MG tablet Take 1 tablet by mouth Every 12 (Twelve) Hours. 5 10/18/19 25 Discontin ued(*Ther apy completed ) Active Problems Problem Noted Date Diagnosed Date Precordial chest pain 03/08/2024 Assessment & Plan (03/30/2024 3:48 PM EST): Patient has nonflow-limiting coronary artery disease. She continues to report chest pressure and heaviness. Recent ER visit this week for the chest heaviness and shortness of breath. Patient has chronic shortness of breath Assessment & Plan (03/08/2024 6:17 PM EST): As above. This does not sound GI in nature. Orders: Case Request Turn Down Man: Left Heart Cath Dyspnea on exertion 01/31/2024 Assessment & Plan (08/18/2024 4:03 PM EDT): She reports she was in the ER 08/10/2024 for shortness of breath and increased lower extremity edema. She states that they gave her IV Lasix and reports improvement in symptoms. She was then discharged home. Assessment & Plan (03/30/2024 3:46 PM EST): Patient continues to report severe shortness of breath with exertion. She states she continues to have allover edema. She reports that Wednesday of this week she was seen in the ER for having really bad chest pressure. Patient was noted to have an elevated BNP 567. Potassium was 4.3, chloride 108, BUN 24, creatinine 1.20, GFR 43, hemoglobin 8.7, hematocrit 29. Patient does have chronic anemia and has had infusions in the past. H&H not low enough for any type of infusion. Patient is on iron tablets. Assessment & Plan (01/31/2024 9:15 PM EST): Likely due to deconditioning. She also had recent pneumonia last month and previous COVID infection. Discussed with Dr. Krishnamurthy, recommended pulmonary referral or pulmonary rehab. Bilateral leg edema 12/08/2023 Overview (12/08/2023): Declines change in diuretics. Plans to get legs wrapped at [facility]. Assessment & Plan (08/18/2024 4:01 PM EDT): Patient continues to have lower extremity edema with her legs being sore to the touch. Patient to start her spironolactone 50 mg as well as to continue her Lasix and potassium. She is to repeat her labs at her PCP office in 2 weeks. Assessment & Plan (01/31/2024 9:15 PM EST): Currently stable on Lasix. - Continue Lasix and potassium at current doses Assessment & Plan (12/08/2023 11:41 PM EDT): Declines change in diuretics. Plans to get legs wrapped at [facility]. Abdominal pain 11/18/2023 Assessment & Plan (12/08/2023 11:41 PM EDT): Nuclear stress test and Abd CT reviewed. Has GI follow-up at [facility] 12/28/23. Assessment & Plan (11/18/2023 3:01 PM EDT): Patient reports abdominal pain and distention. She states that it feels like it is pushing up into her lungs causing her to be very short of breath. Plan abdominal CT with oral and IV contrast. Acute diastolic CHF (congestive heart failure) 0 10/28/2023 Assessment & Plan (08/18/2024 4:00 PM EDT): Patient had recent ER visit at [facility]. She was noted to have a proBNP 1230 she was given furosemide 80 mg IV and had improvement in her symptoms. Patient states she had a follow-up with her PCP Dr. Poon and was started on spironolactone 50 mg twice a day. Patient states she has not started the medication yet. Patient has been instructed that she can take the spironolactone as well as the furosemide. If she has increased swelling she can increase the 40 mg furosemide to 2 tablets for 2 days and to contact our office to report any worsening of symptoms. She reports that her PCP is repeating her blood work in 2 weeks. Assessment & Plan (11/18/2023 3:04 PM EDT): Congestive heart failure due to coronary artery disease (CAD), hypertension, and viral infection. Heart failure is stable. NYHA Class II. Continue current treatment regimen. Dietary sodium restriction. Encouraged daily monitoring of the patient's weight. Heart failure will be reassessed in 4 weeks. Patient to continue Bumex. Patient reports recent COVID infection. Assessment & Plan (10/28/2023 5:01 PM EDT): Patient continues to complain of abdominal and lower extremity edema. She states that she feels like her belly is pushing up into her lungs and her heart. Her primary care has ordered a CT of her abdomen that she will do on the . Patient to continue on the Bumex 1 mg daily. I have instructed patient to weigh herself daily and if she has greater than a 5 pound weight gain overnight to take 2 tablets of her Bumex. Echo today showed LVEF 61-65%. Left ventricular wall thickness is consistent with mild concentric hypertrophy. Left ventricular diastolic function is consistent with (grade I) impaired relaxation. There is mild to moderate mitral regurgitation present. Estimated right ventricular systolic pressure from tricuspid regurgitation is normal (<35 mmHg). Limit sodium intake Continue current medications Follow-up in 3 weeks Presence of cardiac pacemaker 04/05/2023 Assessment & Plan (08/18/2024 4:02 PM EDT): Patient is encouraged to keep her appointment for her pacemaker check with Dr. Krishnamurthy in 7 weeks. Assessment & Plan (03/30/2024 3:38 PM EST): Patient to be scheduled for pacemaker interrogation in 6 months. Previous interrogation 01/31/2024 showed good battery life and lead functions with no cardiac events. Assessment & Plan (01/31/2024 3:56 PM EST): Device interrogation today shows good battery life and lead function. No events noted. Assessment & Plan (12/08/2023 11:41 PM EDT): Leads are in place. Battery approximately 8.5 years. No events. No changes made today. Assessment & Plan (11/18/2023 3:10 PM EDT): Patient has follow-up 01/03/2024 for her next pacemaker check. Assessment & Plan (10/28/2023 5:00 PM EDT): Pacemaker check done 10/04/2023 showed good lead function and battery life. Patient has follow-up 01/03/2024 for her next pacemaker check. Assessment & Plan (04/05/2023 11:47 AM EST): Good lead function and battery life 9 years. Follw up 6 months with pacemaker check. Coronary artery disease invo lving eagle coronary artery of eagle heart without angina pectoris 04/05/2023 Assessment & Plan (08/18/2024 4:02 PM EDT): Recent left heart cath 03/21/2024 showed nonflow limiting coronary disease. Widely patent LAD, diagonal and circumflex stents. 30% RCA and OM 2 disease. LVEF 65% Assessment & Plan (03/30/2024 3:39 PM EST): Recent left heart cath 03/21/2024 showed nonflow limiting coronary disease. Widely patent LAD, diagonal and circumflex stents. 30% RCA and OM 2 disease. LVEF 65% Assessment & Plan (03/08/2024 6:17 PM EST): Symptoms are somewhat concerning for worsening angina. She does have some shortness of breath that could be attributed to deconditioning. She does have some lower extremity edema that could be causing heart failure symptoms as well. Orders: Case Request Turn Down Man: Left Heart Cath Assessment & Plan (01/31/2024 9:13 PM EST): Coronary artery disease is stable. Continue current treatment regimen. Cardiac status will be reassessed in 3 months. She completed a nuclear stress test in November that revealed no evidence of ischemia, low risk study. - Continue current medical therapy. Assessment & Plan (11/18/2023 3:09 PM EDT): Coronary artery disease is stable. Continue current treatment regimen. Cardiac status will be reassessed at the next regular appointment. Repeat nuclear stress testing Patient reports worsening SOA and continues to have chest pain. Recent COVID infection. Assessment & Plan (10/28/2023 4:54 PM EDT): Coronary Artery Disease (OPTIONAL): Coronary artery disease is stable. Continue current treatment regimen. Cardiac status will be reassessed at the next regular appointment. 08/29/2022 nuclear stress test low risk. Assessment & Plan (04/05/2023 11:52 AM EST): Nuclear stress test 09/28/22 low risk. Continue current medications. Encounters Date Type Department Care Team Description 10/17/2024 10:30 AM EDT Office Visit [facility] [address] [place] [phone] Reanna Krishnamurthy MD Coronary artery disease involving eagle coronary artery of eagle heart without angina pectoris (Primary Dx); Bilateral leg edema; Presence of cardiac pacemaker 10/17/2024 Travel 08/18/2024 11:00 AM EDT Office Visit [facility] [address] [place] [address] Ayesha Galo APRN Dyspnea on exertion (Primary Dx); Bilateral leg edema; Acute diastolic CHF (congestive heart failure); Coronary artery disease involving eagle coronary artery of eagle heart without angina pectoris 08/18/2024 Travel 08/15/2024 Telephone [facility] [address] [phone] Ayesha Galo APRN [employer]- REQUEST from Last 3 Months Family History Medical History Relation Name Comments Lung cancer Brother COPD Father Diabetes Mother Heart attack Mother Heart failure Sister Relation Name Status Comments Brother Father Mother Sister Social History Tobacco Use Types Packs/Day Years [...] Pulse 82 10/17/2024 10:36 AM EDT Temperature 36.5 C (97.7 F) 03/21/2024 11:27 AM EST Respiratory Rate 16 03/21/2024 1:29 PM EST Oxygen Saturation 93% 10/17/2024 10:36 AM EDT Inhaled Oxygen Concentration - - Weight 108 kg (237 lb) 10/17/2024 10:36 AM EDT Height 160 cm (5' 3 ) 10/17/2024 10:36 AM EDT Body Mass Index 41.98 10/17/2024 10:36 AM EDT Plan of Treatment Upcoming Encounters Date Type Department Care Team (Late st Contact Info) Description 01/25/2025 8:30 AM EST Office Visit [facility] [address] [place] [address] Ayesha Galo, RASHMI [address] [place] [address] [place] [address] Health Maintenance Due Date Last Done Comments DXA SCAN 1945 ZOSTER VACCINE (1 of 2) 1993 RSV Vaccine - Adults (1 - 1- dose 75+ series) 2018 ANNUAL WELLNESS VISIT 07/17/2022 COVID-19 Vaccine (3 - 2024-2 6 season) 2024 12/26/2020, 05/02/2020 INFLUENZA VACCINE 11/22/2024 11/30/2023, , 11/25/2021, Additional history exists TDAP/TD VACCINES (3 - Td or Tdap) 04/22/2025 016, 12/20/1997 Pneumococcal Vaccine 50+ Completed 022, 01/22/2015, 11/01/2013 Medical Devices Implanted Type Area Head Correction Officer Device Identifier Shelf Expiration Date Model / Serial / Lot Pacemaker Pacemaker Procedures Procedure Name Priority Date/Time Associated Diagnosis Comments SCANNED - LABS 10/10/2024 SCANNED EKG 08/10/2024 SCANNED - LABS 08/10/2024 SCANNED - IMAGING 08/10/2024 from Last 3 Months Results * LABS SCANNED (10/10/2024) Only the most recent of2 resultswithin the time period is included. Reanna Krishnamurthy MD LAB BLOOD ORDERABLES Final R esult * ECG Scan (08/10/2024) Ayesha W Iraj [facility] ECG ORDERABLES Final Result * IMAGING SCANNED (08/10/2024) Anatomical Region Laterality Modality Radiographic Whit ging Ayesha W Seivers [facility] IMG DIAGNOSTIC IMAGING ORDER DEMETRIUS Final Result from Last 3 Months Insurance [place] MED[place] [employer]ACT [employer] Member Subscriber Plan / Payer (Ef fective 2023-Present) Name:Gina Stone Relation to Subscriber:Self Name:ChaseGina Payer ID:[id number] Group ID:Not on file Type:Not on file Address: [address] [facility]ICARE [facility] Care Teams Bias Cutter Helper Relationship Specialty Start Date End Date Jose Mendoza MD [address] [facility] [address] [place] [address] PCP - General Adolescent Medicine 08/03/22
--- OUTSIDE RECORDS SUMMARY | 2024-11-06 15:18 | XMS_ITS | Clinical Summary ---
Author Organization [facility] Address [address] [place] [address] Care Team Providers Care Percussion Teacher Name Role Phone Jose Mendoza MD Primary Care Provider [phone] Allergies No known active allergies Medications alendronate [...] tablet by mouth daily. Active HYDROcodone-acetam inophen ([place]) 7.5-325 MG tablet Take 1 tablet by mouth every 6 hours. 4 Active isosorbide mononitrate ER (Imdur) 60 MG 24 hr tablet Take 1 tablet by mouth daily. 5 Active nebivolol (Bystolic) 10 MG tablet Take 1 tablet by mouth daily. 5 Active pantoprazole (Protonix) 40 MG EC tablet Take 1 tablet by mouth 2 times a day. 5 Active pravastatin (Pravachol) 80 MG tablet Take 1 tablet by mouth daily. 5 Active pregabalin (Lyrica) 75 MG capsule Take 1 capsule by mouth 2 times a day. 5 Active Calcium Carbonate-Vitamin D 250-3.125 MG-MCG tablet Take 1 tablet by mouth every morning. Active Vibegron (Gemtesa) 75 MG tablet Take 75 mg by mouth daily. Active lisinopril 20 MG tablet Take 1 tablet by mouth daily. Active ondansetron ODT (Zofran-ODT) 4 MG disintegrating tablet Dissolve 1 tablet on the tongue every 6 hours as needed for nausea or vomiting. 20 tablet 5 Active methocarbamol (Robaxin) 500 MG tablet Take 1 tablet by mouth every 6 hours for 5 days. 20 tablet 5 Active naloxone (Narcan) 4 mg/0.1 mL nasal spray 1. Give 1 spray in nostril for no/slow breathing or cannot wake after opioid use 2. Call 911 3. Repeat in other nostril if symptoms continue 1 each 5 Active rivaroxaban (Xarelto) 10 MG tablet Take 1 tablet by mouth daily for 24 doses. 24 tablet 5 Active Active Problems Problem Noted Date Diagnosed Date Malignant neoplasm of colon, unspecified part of colon 07/10/2024 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 (BMI) of 40.0 or higher 06/27/2024 Malignant neoplasm of colon 06/20/2024 Dyspnea on exertion 01/31/2024 Coronary artery disease invo lving [place] coronary artery of [place] heart without angina pectoris 04/05/2023 Encounters Date Type Department Care Team Description 08/15/2024 3:00 PM EDT Office Visit [facility] Multidisciplinary Oncology Clinic [address] [place] [phone] Mata Smalls MD Malignant neoplasm of ascending colon (CMS/HCC) (Primary Dx) 08/15/2024 Travel from Last 3 Months Family History Medical [...] by your partner or ex-partner? No 07/11/2024 PHQ-2 Answer Date Recorded Patient Health Questionnaire-2 Score 0 08/15/2024 Hunger Vital Sign Answer Date Recorded Within [...] any time in the past [address] [facility], were you homeless or living in a fci (including now)? No 07/11/2024 Utilities Answer Date Recorded In the past 12 months has th e [employer], gas, oil, or water company threatened to shut off services in your home? No 07/11/2024 Comments No Sex and Gender Information Value Date Recorded Sex Assigned at Not on file Legal Sex Female 8:12 PM EDT Gender Identity Not on file Sexual Orientation Not on file Last Filed Vital Signs Vital Sign Reading Time Taken Comments Blood Pressure 154/69 08/15/2024 2:56 PM EDT Pulse 85 08/15/2024 2:56 PM EDT Temperature 36.6 C (97.8 F) 08/15/2024 2:56 PM EDT Respiratory Rate 16 08/15/2024 2:56 PM EDT Oxygen Saturation 95% 08/15/2024 2:56 PM EDT Inhaled Oxygen Concentration - - Weight 107 kg (235 lb 14.3 oz) 08/15/2024 2:56 P M EDT Height 157.5 cm (5' 2 ) 08/15/2024 2:56 PM EDT Body Mass Index 43.15 08/15/2024 2:56 PM EDT Plan of Treatment Upcoming Encounters Date Type Department Care Team (Latest Contact Info) Description 01/09/2025 12:20 PM EST Appointment [facility] [address] [place] [address] 01/09/2025 2:30 PM EST Office Visit [facility] [address] [place] [address] Mata Smalls MD [address] [facility] [address] [place] [id number] 01/09/2025 2:30 PM EST Clinical Support [facility] [address] [place] [address] Health Maintenance Due Date Last Done Comments [facility]-Bone Density Scan 1945 [facility]-Medicare Annual Wellness (AWV) 1945 [facility]-/Child/Adol SDOH Screenings 1945 [facility]-Hepatitis A Vaccines (1 of 2 - Risk 2-dose series) 1962 [facility]-Pneumococcal Vaccine: 50+ Years (1 of 2 - PCV) 1962 [facility]-Zoster Vaccines (1 of 2) 1962 [facility]-DTaP,Tdap,and Td Vaccines (1 - Tdap) 12/21/1997 12/20/1997 [facility]-RSV Vaccine: 60+ Years or (1 - 1-dose 75+ series) 2018 [id number] Vaccine (3 - season) 2024 12/26/2020, 05/02/2020 [facility]-Influenza Vaccine (#1) 10/23/202411/29, 12/08/2022, 12/10/2020, Additional history exists [facility]- SDOH Screenings 01/11/2025 [facility]-Adult SDOH Screenings 01/11/2025 07/11/2024 [facility]-Depression Screening 08/15/2025 08/15/2024 [facility]-Obesity Intervention Completed 025, 06/20/2024, 06/20/2024 HPV Vaccines Aged Out No longer eligi [...] on patient's age to complete this topic Insurance [employer] MEDICARE [place] Advance Directives * Full Code (Latest Code Status on File) Date Activated Date Inactivated Comments 07/10/2024 8:40 PM 07/15/2024 6:51 PM Question Answer Comments I have reviewed the capacity from the link above and, if needed, have updated to appropriate status: Yes Care Teams Percussion Teacher Relationship Specialty Start Date End Date Jose Mendoza MD [address] [place] [address] PCP - General Internal Medicine 05/23/24
--- NOTE | 2024-11-06 15:19 | XR_ITS ---
FINAL REPORT CLINICAL HISTORY: SOA COMPARISON: 03/27/2022 FINDINGS: 2 views of the chest were obtained . The heart is normal in size. The mediastinum is within normal limits. The lungs are clear. There is no pneumothorax. Osseous structures are unremarkable. IMPRESSION: No acute cardiopulmonary process. Reviewed, Interpreted and Dictated by Chris Temple MD Transcribed by Sophie Leslie Authenticated and . [facility]
[2024-11-06 15:44] LABS: Hematocrit 36.3 % (37.0-47.0); Hemoglobin 11.7 g/dL (12.2-16.2); Immature Granulocytes % 0.1 %; Mean Corpuscular HGB Conc 32.2 g/dL (31.8-35.4); Mean Corpuscular Hemoglobin 28.7 pg (27.0-31.2); Mean Corpuscular Volume 89.0 fl (81-99); Nucleated Red Blood Cells % 0 %; Platelet Count 214 K/mm3 (142-424); Red Blood Count 4.08 M/mm3 (4.20-5.40); Red Cell Distribution Width-SD 53.1 fL; White Blood Count 7.6 K/mm3 (4.8-10.8)
[2024-11-06 15:53] LABS: Albumin Level 4.0 g/dl (3.5-5.0); Chloride 108 mmol/L (98-107); Potassium 4.3 mmoL/L (3.5-5.1); Sodium 143 mmol/L (136-145)
[2024-11-06 15:56] LABS: Alanine Aminotransferase 16 U/L (12-78); Albumin/Globulin Ratio 1.4 (1.1-1.8); Alkaline Phosphatase 90 U/L (38-126); Anion Gap 11.3 mEq/L (5-15); Aspartate Amino Transferase 27 U/L (14-36); Bilirubin,Total 0.6 mg/dl (0.2-1.3); Blood Urea Nitrogen 21 mg/dl (7-17); Calcium 9.3 mg/dl (8.4-10.2); Carbon Dioxide 28 mmol/L (22.0-30.0); Creatinine,Serum 1.30 mg/dl (0.52-1.04); Estimated Glomerular Filt Rate 39 ml/min (>60); GFR (African American) 48 ML/MIN (>60); Globulin 2.9 g/dL (1.3-3.2); Glucose 98 mg/dl (74-100); Total Protein,Serum 6.9 g/dl (6.3-8.2)
[2024-11-06 16:06] LABS: NT Pro Brain Natriuretic Pep. 405 pg/mL (0-450)
[2024-11-06 16:27] LABS: Thyroid Stimulating Hormone 0.45 uIU/mL (0.465-4.68)
== END 2024-11-06 23:59 | disposition home or self-care (01) ==
LOC: LAB 15:15
PROVIDERS: PCP Internal Medicine Adolescent Medicine; Visit Provider Nurse Practitioner Family
DX: R06.02 Shortness of breath (principal)
CPT/HCPCS: 36415; 71046; 80053; 83880; 84443; 85025

== ENCOUNTER 2024-11-09 08:34 | Outpatient (CLI) | payer MEDICARE, MEDICAID, SELFPAY ==
--- OUTSIDE RECORDS SUMMARY | 2024-08-17 07:45 | XMS_ITS ---
Author Organization [facility] Address [address] [place] [address] Care Team Providers Care Thickener Operator Name Role Phone Jose Mendoza Primary Care Provider REASON FOR VISIT er fu Encounters Encounter Location Date Provider Diagnosis [facility] [address] [address] 08/17/2024 Jose Mendoza Plan Of Treatment Next Appt Details Provider Name:Jose Mendoza, 12/14/2024 11:45:00 AM, [address] [place] [address], [phone], Progress Notes * Jorge TIMeDOB:1945 (79 yo F)Acc No.[id number]:08/17/2024 Progress Notes Patient: Gina MARTINEZ Provider: Abdelrahman Mendoza MD :1945 A ge:79 Y S ex:Female Date:08/17/2024 Address:[address] [phone] Subjective: * Chief Complaints: * 1 . Er fu. * Medical History: Objective: * Vitals: Assessment: Plan: * Treatment: * * Electronic signature of Junaid Mendoza MD FAAP on 11/09/2024 at 08:55 AM EDT Sign off status: Pending * Provider: Abdelrahman Mendoza MD Date: 0 08/17/2024 Generated for Maico mullen/Valentin/Mahoganyitting on: 0 11/09/2024 08:55 AM EDT
--- OUTSIDE RECORDS SUMMARY | 2024-10-10 07:00 | XMS_ITS ---
Author Organization [facility] D MAGAN Address [address] [place] [address] Care Team Providers Care General Warehouse Worker Name Role Phone Jose Mendoza Primary Care Provider [phone] Allergies Allergen (clinical drug ingredient) Drug/Non Drug Allergy documented on EMR Reaction Allergy Type Onset Date Status oseltamivir Tamiflu dizziness Drug Allergy Activ e Results Component Value Reference Range Notes IRON, TIBC AND FERRITIN PANE L (5616) Reviewed date:10/16/2024 09:04:29 AM Interpretation: Performing Lab:JOANN [facility] Technologiese13[address] [employer], CatalystPharmaSrdlOO[address] Dewayne Tamayo Notes/Report: NON-FASTING; NON-FASTING; NON-FASTING; NON-FASTING IRON, TOTAL 58 45-160 mcg/dL IRON BINDING CAPACITY 342 250-450 mcg/dL (marielos c) % SATURATION 17 16-45 % (calc) FERRITIN 36 16-288 ng/mL COMPREHENSIVE METABOLIC PANE L (79897) Reviewed date:10/16/2024 09:04:29 AM Interpretation: Performing Lab:JOANN Travel[employer]e1355 [employer] [address] [employer], Verismo NetworksPxjgUN[address] Dewayne Tamayo Notes/Report: NON-FASTING; NON-FASTING; NON-FASTING; NON-FASTING [...] date:10/16/2024 09:04:29 AM Interpretation: Performing Lab:JOANN, [facility] Oefk0573 [facility], [facility] CenterNgliJO[address] Dewayne Tamayo Notes/Report: NON-FASTING; NON-FASTING; NON-FASTING; NON-FASTING [...] MPV 12.2 7.5-12.5 fL ABSOLUTE NEUTROPHILS 3585 3594-2200 cells/uL ABSOLUTE LYMPHOCYTES 2023 850-3900 cells/uL ABSOLUTE MONOCYTES 864 200-950 cells/uL ABSOLUTE EOSINOPHILS 201 15-500 cells/uL ABSOLUTE BASOPHILS 27 0-200 cells/uL NEUTROPHILS 53.5 LYMPHOCYTES 30.2 MONOCYTES 12.9 EOSINOPHILS 3.0 BASOPHILS 0.4 LYME DISEASE AB W/REFL IA (I GG,IGM) (13608) Reviewed date:10/16/2024 09:04:29 AM Interpretation: Performing Lab:EZ, [facility],[address] [address] La VetaNmlnceusjlDI[address] Angelica Armijo MD,PhD,LESLY Notes/Report: NON-FASTING; NON-FASTING; NON-FASTING; [...] Diastolic CHF, chron ic (I50.32) Referral Organization [facility] Referring Provider First Name Jose Referring Provider [...] review and pick correct strength-formulati on from Power OLEDs options. If intended option is not shown, [...] 10/10/2024 Encounters Encounter Location Date Provider Diagnosis [address] [address] 10/10/2024 Jose Mendoza Iron deficiency anemia, unspecified [...] Adenocarcinoma, colon (ICD-10 - C18.9) Follows with [facility] oncology 10/10/2024 Diastolic CHF, chronic (ICD-10 - [...] problems with fatigue Adenocarcinoma, colon [facility] Diastolic CHF, chronic Given [...] Reason: Provider Name:Jose Mendoza, 12/14/2024 11:45:00 AM, [address] [place] [address], [id number], Progress Notes * Helena TIMOB:1945 (79 yo F)Acc No.[id number]:10/10/2024 Progress Notes Patient: Gina MARTINEZ Provider: Abdelrahman Mendoza MD :1945 A ge:79 Y S ex:Female Date:10/10/2024 Address:[address] [facility] Subjective: * Chief Complaints: * 1 . [...] Hospitalization/Major Diagno stic Procedure: H [place] 2012, [facility] - 07/22-07/24/2023, - Colon surgery [...] *Please review and pick correct strength-formulation from Arkan options. If intended option is not shown, [...] 09:04 AM EDT ?LAB: COMPREHENSIVE METABOLIC PANEL (34898)* Value Reference Range G LUCOSE 97 65-99 [...] - % * A BSOLUTE NEUTROPHILS 3585 2761-4922 - cells/uL * L YMPHOCYTES 30.2 - [...] with fatigue ?2.?Adenocarcinoma, colon? Notes: Follows with [facility] oncology??3.?Diastolic CHF, chronic? Notes: Given overall diastolic [...] 0.?LAB: LYME DISEASE AB W/REFL IA (IGG,IGM) (24760)* Value Reference Range L YME AB, SCREEN [...] encounter?LAB: LYME DISEASE AB W/REFL IA (IGG,IGM) (80468)* Value Reference Range L YME AB, SCREEN [...] 10/10/2024 Generated for Maico mullen/Valentin/eTraymondsmitting on: 0 11/09/2024 08:55 AM EDT History and Physical Notes * HPI [...] Provider Referred Provider Not dev 10/10/2024 Jose Mnedoza , Rehab medica l for power Fast[employer]ooter
--- OUTSIDE RECORDS SUMMARY | 2024-10-17 10:30 | XMS_ITS | Encounter Summary ---
Author Organization [facility] Address [address] [place] [address] Care Team Providers Care Automobile Designer Name Role Phone Jose Mendoza MD Primary Care Provider Reason for Visit * Reason Comments Pacemaker Check Coronary Artery Disease Pt states she is here today for follow up CAD. SOA on exertion. No chest pain, palpitations or dizziness. Very weak. Encounter Details Date Type Department Care Team (Late st Contact Info) Description 10/17/2024 10:30 AM EDT Office Visit [facility] CARDIOLOGY [address] [place] [address] Reanna Krishnamurthy MD [address] [place] [address] Coronary artery disease involving [place] coronary artery of [place] heart without angina pectoris (Primary Dx); Bilateral [...] radial access; Surgeon: Dewayne Rios MD; Location: [facility] CATH INVASIVE LOCATION; Service: Cardiovascular; Laterality: N/A; [...] this visit: 1. Coronary artery disease involving [place] coronary artery of [place] heart without angina pectoris(Primary) 2. Bilateral leg [...] 01/17/2025) for Recheck symptoms, Patient OK with MANAGER FOOD SAFETY visit. Sarai Krishnamurthy MD Cardiology and Sleep [facility] 10/17/2024 Please note that this explicitly excludes [...] Description 01/25/2025 8:30 AM EST Office Visit [facility] CARDIOLOGY [address] [place] [address] Ayesha Galo, J2EE ANDROID DEVELOPER [address] [place] [address] documented as of this encounter Visit Diagnoses Diagnosis Coronary artery disease involving [place] coronary artery of [place] heart without angina pectoris- Primary Bilateral leg edema Edema Presence of cardiac pacemaker Cardiac pacemaker in situ documented in this encounter Care Teams Automobile Designer Relationship Specialty Start Date End Date Jose Mendoza MD [address] [facility] [address] [place] [address] PCP - General Adolescent Medicine 08/03/22 documented as of this encounter
--- OUTSIDE RECORDS SUMMARY | 2024-10-30 06:15 | XMS_ITS ---
Author Organization [facility] Address [address] [place] [address] Care Team Providers Care Real Estate Appraiser Name Role Phone Jose Mendoza Primary Care Provider Telma Francois Unavailable [phone] Allergies Allergen (clinical drug ingredient) Drug/Non Drug [...] review and pick correct strength-formulati on from [employer] Apps options. If intended option is not shown, [...] 10/30/2024 Encounters Encounter Location Date Provider Diagnosis [address] [address] 10/30/2024 Telma Francois Bronchopneumonia J18 .0 Assessments [...] Reason: Provider Name:Jose Mendoza, 12/14/2024 11:45:00 AM, [address] [place] [address], [phone], Medications Administered Medication Instructions Date of Administration Dosage Notes Dexamethasone 4mg Injection 10/30/2024 4 mg Progress Notes * Helena TIMOB:1945 (79 yo F)Acc No.[id number]:10/30/2024 Progress Notes Patient: Gina MARTINEZ Provider: Angi Francois APRN :1945 A ge:79 Y S ex:Female Date:10/30/2024 Address:[address] [place], [place] [id number] Pcp:Jose Mendoza Subjective: * Chief Complaints: * [...] *Please review and pick correct strength-formulation from [employer] options. If intended option is not shown, [...] J 1100 Dexamethasone Sodium Phosphate 4mg Injection, [address] THERAPEUTIC ADMINISTRATION * Follow Up: p rn * * Sign off status: Completed true * Provider: Angi Francois APRN Date: 10/30/2024 Generated for Maico mullen/Valentin/Jessica on: 11/09/2024 08:54 AM EDT History and Physical Notes * [...]
--- OUTSIDE RECORDS SUMMARY | 2024-11-06 10:00 | XMS_ITS ---
Author Organization [facility] Address [address] [place] [address] Care Team Providers Care Strainer Mill Operator Name Role Phone Junaid Mendozahen Primary Care Provider Telma Francois Unavailable [phone] Allergies Allergen (clinical drug ingredient) Drug/Non Drug [...] date:11/08/2024 08:42:33 AM Interpretation: Performing Lab: Notes/Report: Reason For Referral Reason US abdomen Diagnosis 1 Abdominal distension (R14.0) Referral Organization [facility] Referring Provider First Name Telma Referring Provider Last Name Priscila Referring Provider Speciality Family Pra ctice General Notes Teri Beyer 04:44:36 PM > [...] review and pick correct strength-formulati on from [employer] options. If intended option is not shown, [...] Blood pressure systolic 124 mm Hg 11/07/19 25 Blood pressure diastolic 72 mm Hg 025 Height 5 ft 3 in in 11/06/2024 Weight 0 lbs 11/06/2024 BMI 0 kg/m2 11/06/2024 Encounters Encounter Location Date Provider Diagnosis [facility] [address] [address] 11/06/2024 Telma McNees Shortness of breath R06.02 [...] measure abd girth daily. Return precautions discussed Pending Test Test Name Order Date Ultrasound : Abdomen 11/06/2024 Referrals Referral Date Details 11/06/2024 11/06/2024, US abdom en Next Appt Details Follow Up: pending US, Reaso n: Provider Name:Jose Mendoza, 12/14/2024 11:45:00 AM, 2017 MA[address] , [facility], [place], [address], Progress Notes * Jorge TIMeDOB:1945 (79 yo F)Acc No.[id number]:11/06/2024 Progress Notes Patient: Gina MARTINEZ Provider: Angi Francois APRN :1945 A ge:79 Y S ex:Female Date:11/06/2024 Address:[address] [id number] Pcp:Jose Mendoza Subjective: * Chief Complaints: * [...] Return precautions discussed??2.?Abdominal distension?Imaging: Ultrasound : Abdomen* ? Referral To: ?Reason:US abdomen * Follow Up: p ending US * * Sign off status: Completed true * Provider: Angi Francois APRN Date: 0 11/06/2024 Generated for Maico mullen/Valentin/eTransmitting on: 0 11/09/2024 08:54 AM EDT History and Physical [...]
--- NOTE | 2024-11-09 08:40 | US_ITS ---
FINAL REPORT TECHNIQUE: Multiple transverse and longitudinal images CLINICAL HISTORY: ABDOMEN DISTENSION COMPARISON: 11/26/2023 FINDINGS: Fatty infiltration of the liver is present, without evidence of a focal mass. Multiple small gallstones are in the dependent portion of the gallbladder, with mild distention of the gallbladder but without evidence of wall thickening or biliary ductal dilatation. Limited portions of the right kidney are unremarkable without hydronephrosis. Pancreas is largely obscured. IMPRESSION: 1. Multiple small gallstones are present in the dependent portion of the gallbladder. There is mild gallbladder distention without wall thickening or biliary ductal dilatation. If there is concern for acute cholecystitis, HIDA scan may be considered. 2. Fatty infiltration of the liver. Reviewed, Interpreted and Dictated by Chris Temple MD Transcribed by Carmenza Vasquez Authenticated and . [facility]
--- OUTSIDE RECORDS SUMMARY | 2024-11-09 08:54 | XMS_ITS | Patient Health Record ---
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 Phone Jose Mendoza Primary Care Provider Telma Francois Unavailable [phone] Migration, Provider Unavailable Unavailable Allergies Allergen (clinical drug ingredient) Drug/Non Drug Allergy documented on EMR Reaction Allergy Type Onset Date Status oseltamivir Tamiflu dizziness Drug Allergy Activ e Results Component Value Reference Range Notes X ray : Chest Reviewed date:11/08/2024 08:42:33 AM Interpretation: Performing Lab: Notes/Report: X ray : Chest Reviewed date:11/08/2024 08:42:33 AM Interpretation: Performing Lab: Notes/Report: M-Complete Blood Count Auto Diff Reviewed date:11/06/2024 [...] Performing Lab: Notes/Report: TSH 0.45 0.465-4.68 uIU/mL LYME DISEASE AB W/REFL IA (I GG,IGM) ([id number]) Reviewed date:10/16/2024 09:04:29 AM Interpretation: Performing Lab:EZ, [facility],[address] [address] geniaUtah Valley Hospitalan VyxemvkgdvTY[address] Angelica Armijo MD,PhD,LESLY Notes/Report: NON-FASTING; NON-FASTING; NON-FASTING; [...] spirochetal diseases (e.g., syphilis) or infectious mononucleosis. IRON, TIBC AND FERRITIN PANE L (5616) Reviewed date:03/27/2024 10:28:09 AM Interpretation: Performing Lab:JOANN [employer] [place] Gamese1355 [employer] TherapeuticsLake View Memorial HospitalHfvxVP[address] Dewayne Tamayo Notes/Report: NON-FASTING; NON-FASTING; NON-FASTING; NON-FASTING; NON-FAST FASTING:NO FASTING: NO IRON, TOTAL 26 45-160 mcg/dL IRON BINDING CAPACITY 348 250-450 mcg/dL (marielos c) % SATURATION 7 16-45 % (calc) FERRITIN 51 16-288 ng/mL IRON, TIBC AND FERRITIN PANE L (5616) Reviewed date:10/16/2024 09:04:29 AM Interpretation: Performing Lab:JOANN [place] Roboticse1355 KwiClickteCitilogLake View Memorial HospitalFihsIT[address] Dewayne Tamayo Notes/Report: NON-FASTING; NON-FASTING; NON-FASTING; NON-FASTING IRON, TOTAL 58 45-160 mcg/dL IRON BINDING CAPACITY 342 250-450 mcg/dL (marielos c) % SATURATION 17 16-45 % (calc) FERRITIN 36 16-288 ng/mL LIPID PANEL, STANDARD (7600) Reviewed date:03/09/2024 10:11:58 AM Interpretation: Performing Lab:JOANN Kabbage Frlx1695 [employer], [place] CdzbZX[address] Dewayne Tamayo Notes/Report: NON-FASTING; NON-FASTING FASTING:NO FASTING: NO CHOLESTEROL, TOTAL 159 <200 mg/dL HDL CHOLESTEROL [...] LDL-C. Alonzo REYES et al. RITA. 2013;310(19): 0750-5004 (http://education.Compare And Share.TripConnect/faq/GBG546) CHOL/HDLC RATIO 2.6 <5.0 (calc) NON HDL CHOLESTEROL 98 <130 mg/dL (calc) For patients with diabetes plus 1 major ASCVD risk factor, treating to a non-HDL-C goal of <100 mg/dL (LDL-C of <70 mg/dL) is considered a therapeutic option. COMPREHENSIVE METABOLIC PANE L (16510) Reviewed date:03/09/2024 10:11:59 AM Interpretation: Performing Lab:JOANN Three Melons-miLibris Fats5355 KwiClickteiKoa [facility], [facility] HospitalXwvyNQ[address] Dewayne Tamayo Notes/Report: NON-FASTING; NON-FASTING FASTING:NO FASTING: NO GLUCOSE 99 65-139 mg/dL Non-fasting reference interval [...] 17 10-35 U/L ALT 12 6-29 U/L COMPREHENSIVE METABOLIC PANE L (17925) Reviewed date:10/16/2024 09:04:29 AM Interpretation: Performing Lab:JOANN, [place] Gamese13[address] [employer], miLibris UylyMJ[address] Dewayne Tamayo Notes/Report: NON-FASTING; NON-FASTING; NON-FASTING; NON-FASTING [...] 17 10-35 U/L ALT 11 6-29 U/L COMPREHENSIVE METABOLIC PANE L (87117) Reviewed date:03/27/2024 10:28:09 AM Interpretation: Performing Lab:JOANN, [address] Roboticse13[address] KwiClicktel Souq.comvd, [facility] HospitalPxtaHF[address] Dewayne Tamayo Notes/Report: NON-FASTING; NON-FASTING; NON-FASTING; NON-FASTING; [...] 19 10-35 U/L ALT 12 6-29 U/L COMPREHENSIVE METABOLIC PANE L (39805) Reviewed date:09/01/2024 03:05:17 PM Interpretation: Performing Lab:CB, [facility] Tarq6641 [facility] HospitalteSaint [facility], [facility] HospitalKmwfUK[address] Dewayne Tamayo Notes/Report: NON-FASTING; NON-FASTING; NON-FASTING GLUCOSE 93 65-99 mg/dL Fasting reference interval UREA NITROGEN (BUN) 31 7-25 mg/dL CREATININE 1.70 0.60-0.95 mg/dL EGFR 30 > OR = 60 mL/min/1.73m2 BUN/CREATININE RATIO 18 6-22 (calc) SODIUM 142 135-146 mmol/L POTASSIUM 4.4 3.5-5.3 mmol/L CHLORIDE 106 98-110 mmol/L CARBON DIOXIDE 27 20-32 mmol/L CALCIUM 9.2 8.6-10.4 mg/dL PROTEIN, TOTAL 6.3 6.1-8.1 g/dL ALBUMIN 3.7 3.6-5.1 g/dL GLOBULIN 2.6 1.9-3.7 g/dL (calc) ALBUMIN/GLOBULIN RATIO 1.4 1.0-2.5 (calc) BILIRUBIN, TOTAL 0.4 0.2-1.2 mg/dL ALKALINE PHOSPHATASE 74 37-153 U/L AST 17 10-35 U/L ALT 10 6-29 U/L MAGNESIUM (622) Reviewed date:09/01/2024 03:05:17 PM Interpretation: Performing Lab:JOANN, Three Mel[place]-miLibris [address], ImgurEtsbSB[address] Dewayne Tamayo Notes/Report: NON-FASTING; NON-FASTING; NON-FASTING MAGNESIUM 2.2 1.5-2.5 mg/dL CBC (INCLUDES DIFF/PLT) (639 9) Reviewed date:09/01/2024 03:05:17 PM Interpretation: Performing Lab:JOANN, [address], ImgurWsfvAD[address] Dewayne Tamayo Notes/Report: NON-FASTING; NON-FASTING; NON-FASTING WHITE BLOOD CELL COUNT 6.5 3.8-10.8 Thousand/ uL RED BLOOD CELL COUNT 4.08 3.80-5.10 Million/uL HEMOGLOBIN 11.0 11.7-15.5 g/dL HEMATOCRIT 38.4 35.0-45.0 % MCV 94.1 80.0-100.0 fL MCH 27.0 27.0-33.0 pg MCHC 28.6 32.0-36.0 g/dL For adults, a slight decrease in the calculated MCHC value (in the range of 30 to 32 g/dL) is most likely not clinically significant; however, it should be interpreted with caution in correlation with other red cell parameters and the patient's clinical condition. RDW 17.1 11.0-15.0 % PLATELET COUNT 213 140-400 Thousand/uL MPV 12.6 7.5-12.5 fL ABSOLUTE NEUTROPHILS 3127 9639-3301 cells/uL ABSOLUTE LYMPHOCYTES 2269 850-3900 cells/uL ABSOLUTE MONOCYTES 819 200-950 cells/uL ABSOLUTE EOSINOPHILS 247 15-500 cells/uL ABSOLUTE BASOPHILS 39 0-200 cells/uL NEUTROPHILS 48.1 LYMPHOCYTES 34.9 MONOCYTES 12.6 EOSINOPHILS 3.8 BASOPHILS 0.6 CBC (INCLUDES DIFF/PLT) (639 9) Reviewed date:03/27/2024 10:28:09 AM Interpretation: Performing Lab:JOANN, [address] Mel[address]-miLibris [address], Challenge GamesUtxaQE[address] Dewayne Tamayo Notes/Report: NON-FASTING; NON-FASTING; NON-FASTING; NON-FASTING; [...] MPV 12.6 7.5-12.5 fL ABSOLUTE NEUTROPHILS 3577 3274-7387 cells/uL ABSOLUTE LYMPHOCYTES 9216 885-8908 cells/uL ABSOLUTE MONOCYTES 794 200-950 cells/uL ABSOLUTE EOSINOPHILS 167 15-500 cells/uL ABSOLUTE BASOPHILS 31 0-200 cells/uL NEUTROPHILS 57.7 LYMPHOCYTES 26.3 MONOCYTES 12.8 EOSINOPHILS 2.7 BASOPHILS 0.5 CBC (INCLUDES DIFF/PLT) (639 9) Reviewed date:10/16/2024 09:04:29 AM Interpretation: Performing Lab:JOANN, [facility]-[place] Rgei5575 [facility], [place] KoffXC[address] Dewayne Tamayo Notes/Report: NON-FASTING; NON-FASTING; NON-FASTING; NON-FASTING [...] MPV 12.2 7.5-12.5 fL ABSOLUTE NEUTROPHILS 3585 6857-7056 cells/uL ABSOLUTE LYMPHOCYTES 2023 850-3900 cells/uL ABSOLUTE MONOCYTES 864 200-950 cells/uL ABSOLUTE EOSINOPHILS 201 15-500 cells/uL ABSOLUTE BASOPHILS 27 0-200 cells/uL NEUTROPHILS 53.5 LYMPHOCYTES 30.2 MONOCYTES 12.9 EOSINOPHILS 3.0 BASOPHILS 0.4 RETICULOCYTE COUNT (793) Reviewed date:03/27/2024 10:28:09 AM Interpretation: Performing Lab:JOANN, Three Melons-miLibris [address], [place] UdskGJ[address] Dewayne Tamayo Notes/Report: NON-FASTING; NON-FASTING; NON-FASTING; NON-FASTING; NON-FAST FASTING:NO FASTING: NO RETICULOCYTE COUNT, AUTOMATED 4.9 RETICULOCYTE, ABSOLUTE [id number] [phone] cells/ uL VITAMIN B12/FOLATE, SERUM PA ILANA (7065) Reviewed date:03/27/2024 10:28:09 AM Interpretation: Performing Lab:JOANN [address] [place]-miLibris [address], [place] BvsiLV[address] Dewayne Tamayo Notes/Report: NON-FASTING; NON-FASTING; NON-FASTING; NON-FASTING; NON-FAST FASTING:NO FASTING: NO VITAMIN B12 304 669-9103 pg/mL Please Note: Although the reference range [...] Range Low: <3.4 Borderline: 3.4-5.4 Normal: >5.4 CT Scan : Abdomen and Pelvis with and without contrast Reviewed date:12/08/2023 10:57:53 AM Interpretation: Performing Lab: Notes/Report: M-Cortisol Reviewed date:12/11/2023 09:45:44 AM Interpretation: Performing Lab: Notes/Report: FASTING TANK 10.5 6.2-19.4 ug/dL Please Note: The reference interval and flagging for this test is for an AM collection. If this is a PM collection please use: Cortisol PM: 2.3-11.9 Performed at: [address] [id number] Personnel Research Psychologist: Lopez Chauhan PhD, Phone: [phone] Medications Medication SIG (Take, Route, Frequency, Duration) Notes Start Date End Date Status Multivitamin MULTIPLE VITAMINS 1 CAP(S) ORALLY ONCE A DAY *Please review and pick correct strength-formulati on from Viewbix options. If intended option is not shown, discontinue and re-order from Quick Search* Active OS-MARIELOS 500 1250 MG 1 TAB(S) ORALLY BID *Please review for potential replacement for e-prescription and drug interaction check* Active Furosemide 40 MG 1 tab(s) orally once a day; Duration: 90 days 04/25/2024 Active Alendronate Sodium 70 MG 1 tab(s) orally once a week; Duration: 90 days Active Isosorbide Mononitrate ER 60 MG TAKE 1 TABLET EVERY MORNING; Duration: 90 Active Baclofen 10 MG 1 tab(s) orally 3 times a day; Duration: 90 days Active Pantoprazole Sodium 40 MG TAKE 1 TABLET TWICE DAILY; Duration: 90 Active Fluticasone Propionate 50 MCG/ACT 1 spray(s) in each nostril 2 times a day; Duration: 30 days 06/23/2023 Active Pravastatin Sodium 80 MG TAKE 1 TABLET EVERY DAY; Duration: 90 Active Peridex 0.12 % 15 mL orally 2 times a day; Duration: 30 days 12/31/2022 Active Xarelto 20 MG TAKE 1 TABLET ONE TIME DAILY IN THE EVENING; Duration: 90 Active HYDROcodone-Acetaminop hen 7.5-325 MG 1 tab(s) orally every 6 hours; Duration: 30 days 11/06/2024 Active FeroSul 325 (65 Fe) MG TAKE 1 TABLET TWICE DAILY; Duration: 90 Active Triamcinolone Acetonide 0.5 % 1 emigdio applied topically 2 times a day; Duration: 7 days 09/16/2023 Active Lisinopril 20 MG TAKE 1 TABLET EVERY DAY; Duration: 90 Active Aspirin 81 MG 1 tab(s) orally once a day Active NEBIVOLOL 10 MG TAKE 1 TABLET EVERY DAY; Duration: 90 *Please review for potential replacement for e-prescription and drug interaction check* Active Gemtesa 75 MG TAKE 1 TABLET EVERY DAY; Duration: 90 Active Methocarbamol 500 MG 1-2 tab(s) orally 3 times a day; Duration: 5 day(s) 03/26/2020 Active Spironolactone 50 MG 1 tablet Orally twice a day; Duration: 30 days 08/17/2024 Active Immunizations Vaccine Route Administration Date Status Comme nts Covid Yokasta Unknown 05/02/2020 Administered Covid Yokasta Unknown 12/26/2020 Administered Fluvirin--Influenza vaccine 3+ year IM Intramuscular 11/24/2013 Administered Fluzone High Dose IM Intramuscular 11/28/2019 Administered Influenza (Fluzone)--Medicare only IM Intramuscular 11/15/2015 Administered Influenza (Fluzone)--Medicare only IM Intramuscular 12/03/2014 Administered Adacel (Tdap) Unknown 04/23/2015 Administered Fluzone High Dose IM Intramuscular 11/30/2023 Administered Fluzone High Dose IM Intramuscular 12/08/2022 Administered Fluzone High Dose IM Intramuscular 11/25/2021 Administered Fluzone High Dose IM Intramuscular 12/10/2020 Administered Fluzone High Dose IM Intramuscular 11/29/2018 Administered Fluzone High Dose IM Intramuscular 11/23/2017 Administered Fluzone High Dose IM Intramuscular 11/26/2016 Administered Fluvirin--Influenza vaccine 3+ year IM Intramuscular 11/23/2012 Administered Prevnar PCV-20 (Pneumococcal conjugate 20) IM Intramuscular 08/26/2021 Administered Prevnar PCV-13 (Pneumococcal conjugate 13) IM Intramuscular 01/22/2015 Administered Pneumovax-23 (pneumococccal vaccine polyvalent)2 years or older IM Intramuscular 11/01/2013 Administered Problems Problem Type SNOMED Code ICD Code Onset Dates Problem Status W/U Status Risk Notes Problem Chronic pain syndrome (392238457) Chronic pain syndrome (G89.4) Active confirmed Problem Overactive bladder (902264021) Overactive bladder (N32.81) Active confirmed Problem Urge incontinence of urine (70738909) Urge incontinence (N39.41) Active confirmed Problem Hypertension (62876399) HTN (hypertension) (I10) Active confirmed Problem Vitamin D deficiency (63639287) Vitamin D deficiency (E55.9) Active confirmed Problem Osteoporosis (82289534) Osteoporosis (M81.0) Active confirmed Problem Hyperlipidemia (98056655) Hyperlipemia, idiopathic familial (E78.5) Active confirmed Problem Mild cognitive impairment (431187780) Mild cognitive impairment (G31.84) Active confirmed Problem Gastroesophageal reflux disease (438969392) GERD without esophagitis (K21.9) Active confirmed Problem Lymphedema (90588765) Lymphedema (I89.0) Active confirmed Problem Body mass index 30.00 to 34.99 (035388205140050) BMI 34.0-34.9,adult (Z68.34) Active confirmed Problem Chronic pain (36409712) Other chronic pain (G89.29) Active confirmed Problem Cardiac pacemaker in situ (127534479) Status cardiac pacemaker (Z95.0) Active confirmed Problem Atherosclerosis of coronary artery without angina pectoris (364543760591983) Atherosclerosis of gulkana coronary artery of g[place]ana heart without angina pectoris (I25.10) Active confirmed Problem Memory loss (45698940) Memory loss (R41.3) Active confirmed Problem Primary osteoarthritis (392339766) Primary osteoarthritis involving multiple joints (M15.0) Active confirmed Problem Urge incontinence of urine (36039936) Urinary incontinence, urge (N39.41) Active confirmed Problem Sacroiliitis (98124974) Sacroiliitis (M46.1) Active confirmed Problem Iron deficiency anemia (79423701) Iron deficiency anemia, unspecified iron deficiency anemia type (D50.9) Active confirmed Problem Obese class II (604889589469063) BMI 35.0-35.9,adult (Z68.35) Active confirmed Problem Chronic diastolic heart failure (443347927) Diastolic CHF, chronic (I50.32) Active confirmed Problem Chronic anemia (503960436) Chronic anemia (D64.9) Active confirmed Problem Primary adenocarcinoma of colon (3022914502308) Adenocarcinoma, colon (C18.9) Active confirmed Problem Arthritis of knee (145726852) Arthritis of knee (M17.10) Active confirmed Problem Gastroesophageal reflux disease with esophagitis (disorder) (530298119) Gastroesophageal reflux disease with esophagitis without hemorrhage (K21.00) Active confirmed Problem Adrenal mass (189043321) 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) Active confirmed Vital Signs Heart Rate 74 /min 11/06/2024 Temperature 98 degrees Fahrenheit 11/06/2024 Oximetry 99 11/06/2024 Blood pressure diastolic 72 mm Hg 11/06/2024 Height 5 ft 3 in in 11/06/2024 Blood pressure systolic 124 mm Hg 11/06/2024 Weight 0 lbs 11/06/2024 BMI 0 kg/m2 11/06/2024 Encounters Encounter Location Date Provider Diagnosis [place] [facility] MAGAN [address] [place] [address] 05/27/2024 Provider Migration Chronic pain syndrome G89.4 and Bronchitis J40 [facility] [address] [address] 11/30/2023 Josekarmen Mendoza Primary osteoarthrit is involving multiple joints M15.0 ; Chronic pain syndrome G89.4 ; Atherosclerosis of gulkana coronary artery of [place] heart without angina pectoris I25.10 ; HTN (hypertension) I10 ; Lymphedema I89.0 ; Routine medical exam Z00.00 and Immunization(s) administered Z23 [facility] [address] [address] 01/04/2024 Jose Mendoza Acute bronchopneumon ia J18.0 ; Diastolic CHF, chronic I50.32 and Hospital discharge follow-up Z09 [facility] [address] [address] 03/07/2024 Jose Mendoza Primary osteoarthrit is involving multiple joints M15.0 ; HTN (hypertension) I10 ; Hyperlipemia, idiopathic familial E78.5 ; Lymphedema I89.0 ; Dyspnea on exertion R06.09 ; Overactive bladder N32.81 and Routine medical exam Z00.00 [facility] [address] [address] 03/23/2024 Jose Mendoza Chronic anemia D64.9 ; Dyspnea on effort R06.09 and Arthritis of knee M17.10 [facility] [address] [address] 05/05/2024 Telma McNees Bronchitis J40 [address] [address] 06/13/2024 Jose Mendoza Adenocarcinoma, colo n C18.9 ; Atherosclerosis of gulkana coronary artery of [place] heart without angina pectoris I25.10 ; Iron deficiency anemia, unspecified iron deficiency anemia type D50.9 ; Diastolic CHF, chronic I50.32 and Chronic pain syndrome G89.4 [place] [facility] [address] [address] 07/20/2024 Jose Mnedoza Diastolic CHF, chron ic I50.32 ; S/P right colectomy Z90.49 ; Adenocarcinoma, colon C18.9 and Hospital discharge follow-up Z09 [place] [facility] [address] [address] 08/17/2024 Jose Mendoza Left heart failure w ith preserved LV function I50.30 and Hospital discharge follow-up Z09 [place] [facility] [place] [address] [address] 08/31/2024 Jose Mendoza Diastolic CHF, chron ic I50.32 and Iron deficiency anemia, unspecified iron deficiency anemia type D50.9 [place] [facility] [address] [address] 10/10/2024 Jose Mendoza Iron deficiency anem ia, unspecified iron deficiency anemia type D50.9 ; Hyperlipemia, idiopathic familial E78.5 ; Adenocarcinoma, colon C18.9 ; Diastolic CHF, chronic I50.32 ; Insect bite (nonvenomous), left thigh, initial encounter S70.362A and Bitten or stung by nonvenomous insect and other nonvenomous arthropods, initial encounter W57.XXXA [facility] [address] [address] 10/30/2024 Telma Priscila Bronchopneumonia J18 .0 [place] [facility] [address] [address] 11/06/2024 Telma Priscila Shortness of breath R06.02 and Abdominal distension R14.0 [place] [facility] [address] [address] 11/15/2023 Jose Mendoza Chronic pain syndrom e G89.4 [place] [facility] [address] [place] [address] 11/15/2023 Telma Priscila Adrenal mass E27.8 [place] [facility] [address] [address] 12/01/2023 Jose Mendoza Lymphedema I89.0 [place] [facility] [address] [place] [address] 12/08/2023 Jose Mendoza Fatigue, unspecified type R53.83 [place] [facility] [address] [place] [address] 12/09/2023 Jose Besson [place] [facility] [address] [place] [address] 12/16/2023 Jose Tieshason Chronic pain syndrom e G89.4 [facility] [address] [place] [address] 12/17/2023 Jose Besson [place] [facility] [address] [place] [address] 01/03/2024 Jose Besson [facility] [facility] [address] [place] [address] 01/14/2024 Jose Tieshason Chronic pain syndrom e G89.4 [facility] [address] [place] [address] 02/14/2024 Jose Tieshason Chronic pain syndrom e G89.4 [facility] [address] [place] [address] 03/13/2024 Jose Tieshason Chronic pain syndrom e G89.4 [facility] [address] [place] [address] 03/20/2024 Jose Tieshason Peripheral edema R60 .0 [facility] [address] [place] [address] 04/14/2024 Jose Besson Chronic pain syndrom e G89.4 [facility] [address] [place] [address] 04/24/2024 Jose Besson Peripheral edema R60 .0 [facility] [address] [place] [address] 04/25/2024 Jose Besson [facility] [address] [place] [address] 05/11/2024 Jose Besson Chronic pain syndrom e G89.4 [facility] [address] [place] [address] 06/12/2024 Jose Besson Chronic pain syndrom e G89.4 [facility] [facility] [address] [place] [address] 07/10/2024 Jose Besson Chronic pain syndrom e G89.4 [place] [facility] [address] [facility] [address] [place], [place] [address] 07/19/2024 Jose Besson [place] [facility] [place] [address] [address] 07/19/2024 Jose Besson [place] [facility] [place] [address] [address] 08/11/2024 Jose Besson Chronic pain syndrom e G89.4 [place] [facility] [address] [facility] [address] [place], [place] [address] 09/07/2024 Jose Besson Chronic pain syndrom e G89.4 [place] [facility] [address] [place] [address] 10/05/2024 Jose Besson Chronic pain syndrom e G89.4 [place] [facility] [address] [place] [address] 11/06/2024 Jose Besson Chronic pain syndrom e G89.4 [facility] [facility] [address] [facility] [address] [place], [place] [address] 11/06/2024 Telma Francois Assessments Encounter Date Diagnosis (ICD Code) Assessment Notes Treatment Notes Treatment Clinical Notes Section Notes 11/15/2023 Chronic pain syndrome (ICD-10 - G89.4) 11/15/2023 Adrenal mass (ICD-10 - E27.8) 11/30/2023 Chronic pain syndrome (ICD-10 - G89.4) [...] be causing dyspnea or mental status changes. 12/01/2023 Lymphedema (ICD-10 - I89.0) 12/08/2023 Fatigue, unspecified type (ICD-10 - R53.83) 12/16/2023 Chronic pain syndrome (ICD-10 - G89.4) 01/04/2024 Acute bronchopneumonia (ICD-10 - J18.0) Seems to be improving. Finish up antibiotics. Discussed deep breathing every hour to try to get more lower airway aeration and some coughing. Encouraged a little bit more outside activity for increased ventilation 01/04/2024 Diastolic CHF, chronic (ICD-10 - I50.32) Seems euvolemic. No changes in plan 01/14/2024 Chronic pain syndrome (ICD-10 - G89.4) 02/14/2024 Chronic pain syndrome (ICD-10 - G89.4) 03/07/2024 HTN (hypertension) (ICD-10 - I10) Chronic, [...] 7.5 mg Q6H PRN. CSA signed today. 03/13/2024 Chronic pain syndrome (ICD-10 - G89.4) 03/20/2024 Peripheral edema (ICD-10 - R60.0) 03/23/2024 Dyspnea on effort (ICD-10 - R06.09) Agree with cardiology assessment. No changes in plan at this point 03/23/2024 Chronic anemia (ICD-10 - D64.9) Given patient's issues I feel it is warranted to stop Xarelto. Check anemia labs as noted. I will follow these labs personally 04/14/2024 Chronic pain syndrome (ICD-10 - G89.4) 04/24/2024 Peripheral edema (ICD-10 - R60.0) 05/05/2024 Bronchitis (ICD-10 - J40) Discussed the etiology and expected course of bronchitis. Discussed the rationale for antibiotics and steroid use and the importance of completing the prescription as prescribed. Discussed supportive care. Discussed the signs and symptoms of worsening infection/respirat ory distress that may indicate need for reassessment in clinic/ED. 05/11/2024 Chronic pain syndrome (ICD-10 - G89.4) 05/27/2024 Chronic pain syndrome (ICD-10 - G89.4) 05/27/2024 Bronchitis (ICD-10 - J40) 06/12/2024 Chronic pain syndrome (ICD-10 - G89.4) 06/13/2024 Adenocarcinoma, colon (ICD-10 - C18.9) Reviewed colonoscopy results with patient. Workup is in progress, will follow along with patient. 07/10/2024 Chronic pain syndrome (ICD-10 - G89.4) 07/20/2024 Diastolic CHF, chronic (ICD-10 - I50.32) -RA, comfortable, volume status stable, cont current regimen. 06/13/2024 Atherosclerosis of g[place]ana coronary artery of [place] heart without angina pectoris (ICD-10 - I25.10) Currently stable from heart disease perspective, continues to follow with [facility].Will represent a high risk patient if resection is deemed to be an option by [facility] colorectal surgery 07/20/2024 S/P right colectomy (ICD-10 - Z90.49) -Op on 07/10, recovering remarkably well w/ resolution of multiple non specific symptoms -BM, diet, and ADLs/functional status intact/recovering as expected or better -No signs of post op complicaiton, exam showing great healing -following up w/CRC and Cards. -RTC in 1 month for follow up on chronic med conditions 08/11/2024 Chronic pain syndrome (ICD-10 - G89.4) 08/17/2024 Hospital discharge follow-up (ICD-10 - Z09) I reviewed ER notes available from emergency department. Reviewed labs, reviewed discharge plan, personally reconciled medication. 08/17/2024 Left heart failure with preserved LV function (ICD-10 - I50.30) Patient appears fairly euvolemic but seems to be at higher risk of exacerbation. I reviewed previous echoes, and her heart cath data. Clearly has HFpEF. Entresto might be an option for her but I worry it would take her blood pressure. Cost is also an issue. Will trial low-dose spironolactone. Follow-up in 2 weeks for reevaluation and labs at that point 08/31/2024 Iron deficiency anemia, unspecified iron deficiency anemia type (ICD-10 - D50.9) 08/31/2024 Diastolic CHF, chronic (ICD-10 - I50.32) Doing well with the addition of Aldactone. No changes in plan at this point. Check labs to make sure potassium is not an issue, I will follow personally, follow-up as scheduled 09/07/2024 Chronic pain syndrome (ICD-10 - G89.4) 10/05/2024 Chronic pain syndrome (ICD-10 - G89.4) 10/30/2024 Bronchopneumonia (ICD-10 - J18.0) Discussed the etiology and expected course of bronchopneumonia. Discussed the rationale for antibiotics and steroid use and the importance of completeing the prescription as prescribed. Discussed supportive care. Discussed the signs and symptoms of worsening infection/respirat ory distress that may indicate need for reassessment in clinic/ED. 11/06/2024 Shortness of breath (ICD-10 - R06.02) [...] discussed 11/06/2024 Abdominal distension (ICD-10 - R14.0) 11/06/2024 Chronic pain syndrome (ICD-10 - G89.4) 10/10/2024 Hyperlipemia, idiopathic familial (ICD-10 - E78.5) 10/10/2024 Iron deficiency anemia, unspecified iron deficiency anemia type (ICD-10 - D50.9) History of anemia, will track labs today to see if this is causing her problems with fatigue 10/10/2024 Adenocarcinoma, colon (ICD-10 - C18.9) Follows with Psychiatric oncology 06/13/2024 Iron deficiency anemia, unspecified iron deficiency anemia type (ICD-10 - D50.9) Will follow-up in 2 months with blood counts at that point 11/30/2023 Atherosclerosis of [place] coronary artery of [place] heart without angina pectoris (ICD-10 - I25.10) Overall no evidence of angina. Has had extensive workup with cardiology will follow along 07/20/2024 Adenocarcinoma, colon (ICD-10 - C18.9) -s/p resection as above 03/23/2024 Arthritis of knee (ICD-10 - M17.10) Continue pain management, with medications for me as well as pain clinic visits. 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 Lipid panel pending today. 01/04/2024 Hospital discharge follow-up (ICD-10 - Z09) Reviewed ER records, reconciled medications, she will finish of antibiotics this week 11/30/2023 HTN (hypertension) (ICD-10 - I10) Good blood pressure control. No changes in plan 03/07/2024 Lymphedema (ICD-10 - I89.0) Chronic, improved. Improvement with lymphedema PT. 06/13/2024 Diastolic CHF, chronic (ICD-10 - I50.32) Currently appears euvolemic, blood pressure under good control, no changes in cardiac or diuretic medications 07/20/2024 Hospital discharge follow-up (ICD-10 - Z09) Personally reviewed H&P and discharge summary as available from hospital discharge documentation. Reviewed pertinent labs and test done in the hospital. Personally reconciled medication. 10/10/2024 Diastolic CHF, chronic (ICD-10 - I50.32) [...] with amoxicillin given her total symptom burden 06/13/2024 Chronic pain syndrome (ICD-10 - G89.4) Patient has been compliant with our office and [place] regulations r.e. meds. No concerns on my part about diversion or misuse. Labs and Yuri reports reviewed and are appropriate. 03/07/2024 Dyspnea on exertion (ICD-10 - R06.09) Chronic, stable. Follows with cardiology with extensive w/u completed. Continue daily lasix and K supplementation. Pulmonology and pulmonology rehab referral placed. 11/30/2023 Lymphedema (ICD-10 - I89.0) No evidence of fluid overload. Lymphedema trial 11/30/2023 Routine medical exam (ICD-10 - Z00.00) [...] up-to-date with pneumonia vaccine. Lab orders up-to-date 03/07/2024 Overactive bladder (ICD-10 - N32.81) Chronic, stable. Continues to endorse multiple nighttime awakenings. Continue gemtesa 75 mg daily. Discussed lifestyle modifications. 10/10/2024 Bitten or stung by nonvenomous insect and other nonvenomous arthropods, initial encounter (ICD-10 - W57.XXXA) 03/07/2024 Routine medical exam (ICD-10 - Z00.00) [...] currently negative. Lab today. Will personally review. 11/30/2023 Immunization(s) administered (ICD-10 - Z23) Plan Of Treatment Pending Test Test Name Order Date Ultrasound : Abdomen 11/06/2024 Ultrasound : Abdomen 08/17/2012 Physical Therapy 11/10/2013 [...] 03/04/2021 Next Appt Details Provider Name:Jose Mendoza, 12/14/2024 11:45:00 AM, [address] [facility], [place], [address], Insurance Providers Payer Name Payer Address Payer Phone Subscriber Number Group Number Insured Name Patient Relationship to Insured Coverage Start Date Coverage End Date [employer] MEDICARE [address] [address] [place] [address] [id number] Gina Sotne Self - patient is the insured MEDICAID EDS [address] [place] [address] [id number] Gina Stone Self - patient is the insured Medications Administered Medication Instructions Date of Administration Dosage Notes Kenalog 04/02/2016 1 mL Kenalog 01/09/2016 1 mL Triamcinolone Acetonide 40mg Injection 08/01/2019 1 mL Triamcinolone Acetonide 40mg Injection 02/23/2019 1 mL Kenalog 40mg 11/12/2016 40 mg Kenalog 40mg 06/23/2016 40 mg Dexamethasone 4mg Injection 10/30/2024 4 mg Dexamethasone 4mg Injection 05/05/2024 4 mg Dexamethasone 4mg Injection 12/17/2022 4 mg Kenalog 10/23/2014 1 mL Kenalog 07/24/2014 1 Medical (General) History Medical History History ICD [...] Cancer Surgical History Surgery Date(Month/Year) tubal hysterectomy francis in right femur from fx femur and sli pped and fell cardiac stents x4 pacemaker 10/2017 back 08/2020 colon 2/3 removed Hospitalization History Reason Date(Month/Year) - Colon surgery 07/10- [facility] - 07/22-07/24/2023 HTN 2012
--- OUTSIDE RECORDS SUMMARY | 2024-11-09 08:54 | XMS_ITS | Encounter Summary ---
[facility] Address [address] [place] [address] Care Team Providers Care Supervisor Wheel Shop Name Role Phone Jose Mendoza MD Primary Care Provider [phone] Reason for Visit * Reason Onset Date Comments AYESHA MARADIAGA- REQUEST 08/15/2024 Encounter Details Date Type Department Care Team (Late st Contact Info) Description 08/15/2024 Telephone [facility] [address] [place] [address] Ayesha Maradiaga, CHIEF TECHNICIAN X RAY [address] [place], [place] [id number] AYESHA MARADIAGA- REQUEST Social History Tobacco Use [...] up with us. She request to see Ayesha. Scheduled for Wednesday08/18/24. * Telephone Encounter - Bakari Dixon RegSched Rep - 08/15/2024 9:53 AM EDT Caller: Gina Stone Relationship to patient: Self Best call back number: [phone] Chief complaint: PATIENT HAVING SHORTNESS OF BREATHE AND IS WANTING SEEN SOONER PLEASE ADVISE. Type of visit: FOLLOW-UP Requested date: APARNA If rescheduling, when is the original appointment: 10.04.24 documented in this encounter Plan of Treatment Upcoming Encounters Date Type Department Care Team (Late st Contact Info) Description 01/25/2025 8:30 AM EST Office Visit [facility] [address] [place] [address] Ayesha Maradiaga APRN [address] [place] [address] [place] [address] documented as of this encounter Visit Diagnoses Not on filedocumented in this encounter Care Teams Supervisor Wheel Shop Relationship Specialty Start Date End Date Jose Mendoza MD [address] [place] [address] PCP - General Adolescent Medicine 08/03/22 documented as of this encounter
--- OUTSIDE RECORDS SUMMARY | 2024-11-09 08:55 | XMS_ITS | Clinical Summary ---
[facility] Address [address] [place] [address] Care Team Providers Care Piler Name Role Phone Jose Mendoza MD Primary Care Provider [phone] Allergies Active Allergy Reactions Criticality Noted Date [...] (congestive heart failure),Beasley ry artery disease involving [place] coronary artery of [place] heart without angina pectoris Take 1 tablet [...] sound GI in nature. Orders: Case Request Distributor Sales Consultant: Left Heart Cath Dyspnea on exertion 01/31/2024 [...] diuretics. Plans to get legs wrapped at [facility]. Assessment & Plan (08/18/2024 4:01 PM EDT): [...] diuretics. Plans to get legs wrapped at [facility]. Abdominal pain 11/18/2023 Assessment & Plan (12/08/2023 11:41 PM EDT): Nuclear stress test and Abd CT reviewed. Has GI follow-up at [facility] 12/28/23. Assessment & Plan (11/18/2023 3:01 PM [...] EDT): Patient had recent ER visit at [facility]. She was noted to have a proBNP [...] pacemaker check. Coronary artery disease invo lving [place] coronary artery of [place] heart without angina pectoris 04/05/2023 Assessment & [...] failure symptoms as well. Orders: Case Request Distributor Sales Consultant: Left Heart Cath Assessment & Plan (01/31/2024 [...] Description 10/17/2024 10:30 AM EDT Office Visit [facility] [address] [place] [address] Reanna Krishnamurthy MD Coronary artery disease involving [place] coronary artery of [place] heart without angina pectoris (Primary Dx); Bilateral leg edema; Presence of cardiac pacemaker 10/17/2024 Travel 08/18/2024 11:00 AM EDT Office Visit [facility] [address] [place] [address] Ayesha Galo APRN Dyspnea on exertion (Primary Dx); Bilateral leg edema; Acute diastolic CHF (congestive heart failure); Coronary artery disease involving [place] coronary artery of [place] heart without angina pectoris 08/18/2024 Travel 08/15/[address] [facility] [address] [place] [address] Ayesha Galo [...] AM EST Office Visit [facility] [address] [place] [address] Ayesha Galo, RASHMI [address] [place] [address] [place] [address] Health Maintenance Due Date Last Done Comments DXA SCAN 1945 ZOSTER VACCINE (1 of 2) 1993 RSV Vaccine - Adults (1 - 1- dose 75+ series) 2018 ANNUAL WELLNESS VISIT 07/17/2022 INFLUENZA VACCINE 09/22/2024 11/30/2023, , 11/25/2021, Additional history exists COVID-19 Vaccine (3 - 2024-2 6 season) 2024 12/26/2020, 05/02/2020 TDAP/TD VACCINES (3 - Td or Tdap) 04/22/2025 016, 12/20/1997 Pneumococcal Vaccine 50+ Completed 022, 01/22/2015, 11/01/2013 Medical Devices Implanted Type Area Locomotive Driver Device Identifier Shelf Expiration Date Model / [...] * ECG Scan (08/10/2024) Ayesha W Iraj BIRTHING NURSE ECG ORDERABLES Final Result * IMAGING SCANNED (08/10/2024) Anatomical Region Laterality Modality Radiographic Whit ging Ayesha W Seivers BIRTHING NURSE IMG DIAGNOSTIC IMAGING ORDER DEMETRIUS Final Result from Last 3 Months Insurance [place] MED[place]ID IMPACT PLUS Member Subscriber Plan / Payer (Ef fective 2023-Present) Name:Gina Stone Relation to Subscriber:Self Name:ChaseGina Payer ID:[id number] Group ID:Not on file Type:Not on file Address: [address] MEDICARE ADVANT[facility] Care Teams Piler Relationship Specialty Start Date End Date Jose Mendoza MD [address] [facility] [address] [place] [address] PCP - General Adolescent Medicine 08/03/22
--- OUTSIDE RECORDS SUMMARY | 2024-11-09 08:55 | XMS_ITS | Clinical Summary ---
Author Organization [facility] Address [address] [place] [address] Care Team Providers Care Bottom Worker Name Role Phone Jose Mendoza MD Primary Care Provider [phone] Allergies No known active allergies Medications alendronate [...] tablet by mouth daily. Active HYDROcodone-acetam inophen (Elizabeth) 7.5-325 MG tablet Take 1 tablet by [...] exertion 01/31/2024 Coronary artery disease invo lving [place] coronary artery of [place] heart without angina pectoris 04/05/2023 Encounters Date Type Department Care Team Description 08/15/2024 3:00 PM EDT Office Visit [facility] Multidisciplinary Oncology Clinic [address] [place] [phone] Mata Smalls MD Malignant neoplasm of ascending [...] any time in the past 12 m [facility], were you homeless or living in a fdc (including now)? No 07/11/2024 Utilities Answer Date Recorded In the past 12 months has th e [employer], gas, oil, or water company threatened to [...] PM EST Appointment [facility] [address] [place] [address] 01/09/2025 2:30 PM EST Office Visit [facility] [address] [place] [address] Mata Smalls MD [address] [facility] [address] [place] [id number] 01/09/2025 2:30 PM EST Clinical Support [facility] [address] [place] [address] Health Maintenance Due Date Last [...] or (1 - 1-dose 75+ series) 2018 [id number] Vaccine (3 - season) 2024 12/26/2020, 05/02/2020 [...] updated to appropriate status: Yes Care Teams Bottom Worker Relationship Specialty Start Date End Date Jose Mendoza MD [address] [place] [address] PCP - General Internal Medicine 05/23/24
--- OUTSIDE RECORDS SUMMARY | 2024-11-09 08:55 | XMS_ITS | Encounter Summary ---
Author Organization [facility] Address [address] [place] [address] Care Team Providers Care Special Education Professor Name Role Phone Jose Mendoza MD Primary Care Provider [phone] Encounter Details Date Type Department Care Team [...] Description 01/25/2025 8:30 AM EST Office Visit [facility] CARDIOLOG[facility] [address] [place] [address] Ayesha Galo, PARK INTERPRETIVE RANGER [address] [place] [address] [place] [address] documented as of this encounter Visit Diagnoses Not on filedocumented in this encounter Care Teams Special Education Professor Relationship Specialty Start Date End Date Jose Mendoza MD [address] [place] [address] PCP - General Adolescent Medicine 08/03/22 documented as of this encounter
--- OUTSIDE RECORDS SUMMARY | 2024-11-09 08:55 | XMS_ITS | Encounter Summary ---
Author Organization [facility] Address [address] [place] [address] Care Team Providers Care Degree Clerk Name Role Phone Jose Mendoza MD Primary Care Provider [phone] Encounter Details Date Type Department Care Team (Late st Contact Info) Description 06/15/2024 Lab Requisition [facility] [address] [place] [address] Mata Smalls MD [address] [address] Anemia, unspecified Social History Tobacco [...] EST Appointment [facility] [address] [place] [address] 01/09/2025 2:30 PM EST Office Visit [facility] [address] [place] [address] Mata Smalls MD [address] [address] 01/09/2025 2:30 PM EST Clinical Support [facility] [address] [place] [address] documented as of this encounter Procedures Procedure Name Priority Date/Time Associated Diagnosis Comments SURGICAL PATHOLOGY CONSULT Routine 06/15/2024 1:25 PM EDT Anemia, unspecified documented in this encounter Results * Surgical Pathology Consult (06/15/2024 1:25 PM EDT) Case Report Sugical Pathology Consult Case: [id number] Authorizing Provider: Mata Smalls MD Collected: 06/15/2024 1325 Ordering Location: [facility] Lab Received: 06/15/2024 1326 Pathologist: Mick Dash MD Specimen: Colon, [id number] 2:47 PM EDT [facility] Final Diagnosis (OUTSIDE CASE: [id number], PARTS C&D; COLLECTED ON 06/07/2024): COLON, HEPATIC FLEXURE, BIOPSY (C): - ADENOCARCINOMA, POORLY DIFFERENTIATED (SEE COMMENT) SIGMOID COLON, POLYP, BIOPSY (D): - ADENOCARCINOMA, POORLY DIFFERENTIATED (SEE COMMENT) 2:47 PM EDT [facility] at 1447 EDT Comment The clinical impression [...] tumor with enteric differentiation. 2:47 PM EDT [facility] Clinical Information D64.9 - Anemia, unspecified [ICD-10-CM] 2:47 PM EDT [facility] Special and Immunohistochemical Stains Immunohistochemica l stains that have been performed and interpreted by the outside institution (not reviewed here), have been reported as follows: Positive: CDX2, SATB2 (focal, weak) Negative: CK7, CK20, SYNAPTOPHYSIN, CD56 MMR proteins; IHC interpretation (per report) Loss of nuclear expression of MLH1 and PMS2 2:47 PM EDT [facility] Gross Description A. [id number] Received along with a corresponding pathology report from [facility] are 2 slides labeled outside case: [id number] collected on 06/07/2024. 2:47 PM EDT [facility] Note: A resident was involved in the service. I attest I examined the relevant preparations for the specimens and confirmed the diagnosis or interpretation. 2:47 PM EDT [facility] Tissue Colon structure / Unknown 06/15/2024 1:25 PM EDT 06/15/2024 1:26 PM EDT us Mata Smalls MD LAB PATHOLOGY ORDERABLES Final Result [facility] [address] [place] [address] documented in this encounter Visit Diagnoses Diagnosis Anemia, unspecified documented in this encounter Care Teams Degree Clerk Relationship Specialty Start Date End Date Jose Mendoza MD [address] [place] [address] PCP - General Internal Medicine 05/23/24 documented as of this encounter
== END 2024-11-09 23:59 | disposition home or self-care (01) ==
LOC: RAD 08:35
PROVIDERS: PCP Nurse Practitioner Family; Visit Provider Nurse Practitioner Family
DX: K80.20 Calculus of gallbladder without cholecystitis without obstruction (principal); K76.0 Fatty (change of) liver, not elsewhere classified; K82.8 Other specified diseases of gallbladder; R14.0 Abdominal distension (gaseous)
CPT/HCPCS: 76705

== ENCOUNTER 2024-11-10 17:05 | Emergency (ER) | payer MEDICARE, MEDICAID, SELFPAY ==
--- OUTSIDE RECORDS SUMMARY | 2024-08-17 07:45 | XMS_ITS ---
Author Organization [facility] Address [address] [place] [address] Care Team Providers Care Mail Room Clerk Name Role Phone Jose Mendoza Primary Care Provider [phone] REASON FOR VISIT er fu Encounters Encounter Location Date Provider Diagnosis [facility] [address] [address] 08/17/2024 Jose Mendoza Plan Of Treatment Next Appt Details Provider Name:Jose Mendoza, 12/14/2024 11:45:00 AM, [address] [place] [address], [phone], Progress Notes * Jorge TIMeDOB:1945 (79 yo F)Acc No.[id number]:08/17/2024 Progress Notes Patient: Gina MARTINEZ Provider: Abdelrahman Mendoza MD :1945 A ge:79 Y S ex:Female Date:08/17/2024 Address:[address] [phone] Subjective: * Chief Complaints: * 1 . Er fu. * Medical History: Objective: * Vitals: Assessment: Plan: * Treatment: * * Electronic signature of Junaid Mendoza MD FAAP on 11/10/2024 at 05:13 PM EDT Sign off status: Pending * Provider: Abdelrahman Mendoza MD Date: 0 08/17/2024 Generated for Maico mullen/Valentin/Mahoganyitting on: 0 11/10/2024 05:13 PM EDT
--- OUTSIDE RECORDS SUMMARY | 2024-10-10 07:00 | XMS_ITS ---
Author Organization [facility] D MAGAN Address [address] [place] [address] Care Team Providers Care Wallpaper Printer Helper Name Role Phone Jose Mendoza Primary Care Provider Allergies Allergen (clinical drug ingredient) Drug/Non Drug Allergy documented on EMR Reaction Allergy Type Onset Date Status oseltamivir Tamiflu dizziness Drug Allergy Activ e Results Component Value Reference Range Notes IRON, TIBC AND FERRITIN PANE L (5616) Reviewed date:10/16/2024 09:04:29 AM Interpretation: Performing Lab:JOANN [facility]iae[address] [employer], [facility] Private LimitedCeetLI[address] Dewayne Tamayo Notes/Report: NON-FASTING; NON-FASTING; NON-FASTING; NON-FASTING IRON, TOTAL 58 45-160 mcg/dL IRON BINDING CAPACITY 342 250-450 mcg/dL (marielos c) % SATURATION 17 16-45 % (calc) FERRITIN 36 16-288 ng/mL COMPREHENSIVE METABOLIC PANE L (18309) Reviewed date:10/16/2024 09:04:29 AM Interpretation: Performing Lab:JOANN Squaree[address] [employer], PerkUdznSS[address] Dewayne Tamayo Notes/Report: NON-FASTING; NON-FASTING; NON-FASTING; NON-FASTING GLUCOSE 97 65-99 mg/dL Fasting reference interval UREA NITROGEN (BUN) 28 7-25 mg/dL CREATININE 1.48 0.60-0.95 mg/dL EGFR 35 > OR = 60 mL/min/1.73m2 BUN/CREATININE RATIO 19 6-22 (calc) SODIUM 142 135-146 mmol/L POTASSIUM 4.3 3.5-5.3 mmol/L CHLORIDE 107 98-110 mmol/L CARBON DIOXIDE 28 20-32 mmol/L CALCIUM 9.0 8.6-10.4 mg/dL PROTEIN, TOTAL 6.4 6.1-8.1 g/dL ALBUMIN 3.9 3.6-5.1 g/dL GLOBULIN 2.5 1.9-3.7 g/dL (calc) ALBUMIN/GLOBULIN RATIO 1.6 1.0-2.5 (calc) BILIRUBIN, TOTAL 0.4 0.2-1.2 mg/dL ALKALINE PHOSPHATASE 78 37-153 U/L AST 17 10-35 U/L ALT 11 6-29 U/L CBC (INCLUDES DIFF/PLT) (639 9) Reviewed date:10/16/2024 09:04:29 AM Interpretation: Performing Lab:JOANN, [facility] Asug9025 [facility], [facility] HospitalDhktTW[address] Dewayne Tamayo Notes/Report: NON-FASTING; NON-FASTING; NON-FASTING; NON-FASTING WHITE BLOOD CELL COUNT 6.7 3.8-10.8 Thousand/ uL RED BLOOD CELL COUNT 4.09 3.80-5.10 Million/uL HEMOGLOBIN 11.4 11.7-15.5 g/dL HEMATOCRIT 39.1 35.0-45.0 % MCV 95.6 80.0-100.0 fL MCH 27.9 27.0-33.0 pg MCHC 29.2 32.0-36.0 g/dL For adults, a slight decrease in the calculated MCHC value (in the range of 30 to 32 g/dL) is most likely not clinically significant; however, it should be interpreted with caution in correlation with other red cell parameters and the patient's clinical condition. RDW 16.4 11.0-15.0 % PLATELET COUNT 210 140-400 Thousand/uL MPV 12.2 7.5-12.5 fL ABSOLUTE NEUTROPHILS 3585 2736-2972 cells/uL ABSOLUTE LYMPHOCYTES 2023 850-3900 cells/uL ABSOLUTE MONOCYTES 864 200-950 cells/uL ABSOLUTE EOSINOPHILS 201 15-500 cells/uL ABSOLUTE BASOPHILS 27 0-200 cells/uL NEUTROPHILS 53.5 LYMPHOCYTES 30.2 MONOCYTES 12.9 EOSINOPHILS 3.0 BASOPHILS 0.4 LYME DISEASE AB W/REFL IA (I GG,IGM) (68865) Reviewed date:10/16/2024 09:04:29 AM Interpretation: Performing Lab:EZ, [facility],[address] [address] [place] FallsDzblcmvjnzJZ[address] Angelica Armijo MD,PhD,LESLY Notes/Report: NON-FASTING; NON-FASTING; NON-FASTING; NON-FASTING LYME AB, SCREEN < or = 0.90 that are both IgG and IgM positive from results that are REFERENCE RANGE: < OR = 0.90 Index Index Interpretation < OR = 0.90 NEGATIVE 0.91 - 1.09 EQUIVOCAL > OR = 1.10 POSITIVE This assay measures Lyme Disease (Borrelia burgdorferi) IgG plus IgM antibodies; it does not distinguish results either IgG or IgM positive. As recommended by the Centers for Disease Control and Prevention (CDC), all samples with positive or equivocal results in this screening assay will be tested using separate supplemental Lyme IgG and IgM immunoassays. Positive or equivocal screening assay results should not be interpreted as truly positive until verified as such using the supplemental assays. Screening and/or supplemental tests for Lyme disease antibodies may be falsely negative in early stages of Lyme disease, including the period when erythema migrans is apparent. These assays may be falsely positive in patients with other spirochetal diseases (e.g., syphilis) or infectious mononucleosis. Reason For Referral Reason Rehab medical for po wer scooter Diagnosis 1 Diastolic CHF, chron ic (I50.32) Referral Organization [facility] Referring Provider First Name Jose Referring Provider Last Name Reji Referring Provider Speciality Internal M edicine General Notes Teri Beyer 09:07:39 AM > faxed to rehab medical Referral Priority Routine REASON FOR VISIT med ck Medications Medication SIG (Take, Route, Frequency, Duration) Notes Start Date End Date Status Lisinopril 20 MG 1 tab(s) orally once a day; Duration: 90 days Active Pravastatin Sodium 80 MG 1 tab(s) orally once a day; Duration: 90 days Active Isosorbide Mononitrate ER 60 MG 1 tab(s) orally once a day (in the morning); Duration: 90 days Active Furosemide 40 MG 1 tab(s) orally once a day; Duration: 90 days 04/25/2024 Active NEBIVOLOL 10 MG TAKE 1 TABLET EVERY DAY; Duration: 90 *Please review for potential replacement for e-prescription and drug interaction check* Active Fluticasone Propionate 50 MCG/ACT 1 spray(s) in each nostril 2 times a day; Duration: 30 days 06/23/2023 Active FeroSul 325 (65 Fe) MG TAKE 1 TABLET TWICE DAILY; Duration: 90 Active Triamcinolone Acetonide 0.5 % 1 emigdio applied topically 2 times a day; Duration: 7 days 09/16/2023 Active Gemtesa 75 MG TAKE 1 TABLET EVERY DAY; Duration: 90 Active Amoxicillin 875 MG 1 tablet Orally Twice a day; Duration: 7 days 10/10/2024 Active Peridex 0.12 % 15 mL orally 2 times a day; Duration: 30 days 12/31/2022 Active Methocarbamol 500 MG 1-2 tab(s) orally 3 times a day; Duration: 5 day(s) 03/26/2020 Active Multivitamin MULTIPLE VITAMINS 1 CAP(S) ORALLY ONCE A DAY *Please review and pick correct strength-formulati on from Cellfire options. If intended option is not shown, discontinue and re-order from Quick Search* Active Alendronate Sodium 70 MG 1 tab(s) orally once a week; Duration: 90 days Active Baclofen 10 MG 1 tab(s) orally 3 times a day; Duration: 90 days Active Spironolactone 50 MG 1 tablet Orally twice a day; Duration: 30 days 08/17/2024 Active Pantoprazole Sodium 40 MG 1 tab(s) orally twice a day; Duration: 90 days Active HYDROcodone-Acetaminop hen 7.5-325 MG 1 tab(s) orally every 6 hours; Duration: 30 days 10/05/2024 Active OS-MARIELOS 500 1250 MG 1 TAB(S) ORALLY BID *Please review for potential replacement for e-prescription and drug interaction check* Active Aspirin 81 MG 1 tab(s) orally once a day Active Xarelto 20 MG 1 tab(s) orally once a day (in the evening); Duration: 90 days Active Vital Signs Temperature 97.7 degrees Fahrenheit 10/11/19 25 Heart Rate 76 /min 10/10/2024 Blood pressure systolic 122 mm Hg 10/11/19 25 Blood pressure diastolic 80 mm Hg 025 Height 5 ft 3 in in 10/10/2024 Weight 232 lbs 10/10/2024 BMI 41.09 kg/m2 10/10/2024 Encounters Encounter Location Date Provider Diagnosis [address] [address] 10/10/2024 Jose Mendoza Iron deficiency anemia, unspecified iron deficiency anemia type D50.9 ; Hyperlipemia, idiopathic familial E78.5 ; Adenocarcinoma, colon C18.9 ; Diastolic CHF, chronic I50.32 ; Insect bite (nonvenomous), left thigh, initial encounter S70.362A and Bitten or stung by nonvenomous insect and other nonvenomous arthropods, initial encounter W57.XXXA Assessments Encounter Date Diagnosis (ICD Code) Assessment Notes Treatment Notes Treatment Clinical Notes Section Notes 10/10/2024 Iron deficiency anemia, unspecified iron deficiency anemia type (ICD-10 - D50.9) History of anemia, will track labs today to see if this is causing her problems with fatigue 10/10/2024 Hyperlipemia, idiopathic familial (ICD-10 - E78.5) 10/10/2024 Adenocarcinoma, colon (ICD-10 - C18.9) Follows with [facility] oncology 10/10/2024 Diastolic CHF, chronic (ICD-10 - I50.32) Given overall diastolic heart failure, poor functional status, etc. I do think she is a good candidate for a scooter/para mobility device. Will initiate referral for this 10/10/2024 Insect bite (nonvenomous), left thigh, initial encounter (ICD-10 - S70.362A) Tick bite. Unclear time course, given her aches and pains will check Lyme titers. Cover with amoxicillin given her total symptom burden 10/10/2024 Bitten or stung by nonvenomous insect and other nonvenomous arthropods, initial encounter (ICD-10 - W57.XXXA) Plan Of Treatment Medication Medication Name Sig Start Date Stop Date Notes Amoxicillin 875 MG 1 tablet Orally Twic e a day; Duration: 7 days 10/10/2024 Treatment Notes Assessment Notes Iron deficiency anemia, unsp ecified iron deficiency anemia type History of anemia, will track labs today to see if this is causing her problems with fatigue [facility] Diastolic CHF, chronic Given overall aleida stolic heart failure, poor functional status, etc. I do think she is a good candidate for a scooter/para mobility device. Will initiate referral for this Insect bite (nonvenomous), l eft thigh, initial encounter Tick bite. Unclear time course, given he r aches and pains will check Lyme titers. Cover with amoxicillin given her total symptom burden Referrals Referral Date Details 10/10/2024 10/10/2024, Rehab me dical for power scooter Next Appt Details Follow Up: prn, Reason: Provider Name:Jose Mendoza, 12/14/2024 11:45:00 AM, [address] [place] [address], [id number], Progress Notes * Helena TIMOB:1945 (79 yo F)Acc No.[id number]:10/10/2024 Progress Notes Patient: Gina MARTINEZ Provider: Abdelrahman Mendoza MD :1945 A ge:79 Y S ex:Female Date:10/10/2024 Address:[address] [facility] Subjective: * Chief Complaints: * 1 . Med ck. * HPI: g en: Gina is here for regular checkup. Overall does not feel very good. Is seeing a host of specialist, and feels like she continues to be swollen and have some fluid retention. She overall feels fairly weak. No focal symptoms however. Wonders about getting a mobility device given her overall chronic medical problems and difficulty getting around. * Medical History: o steoporosis - most [...] x4 , pacemaker 10/2017, back 08/2020, colon 2/3 removed . * Hospitalization/Major Diagno stic Procedure: H [place] 2012, [facility] - 07/22-07/24/2023, - Colon surgery 07/10-. * Family History: F ather: . M other: . P aternal Grand Father: . P aternal Grand Mother: . M aternal Grand Father: . M aternal Grand Mother: . Siblings: alive, 2 brothers - ca, diagnosed with Cancer. C hildren: alive, COPD, DM, HTN, HLD, diagnosed with [...] tab(s) orally once a day , Taking OS-MARIELOS 500 1250 MG TABLET 1 TAB(S) ORALLY BID , Notes to Pharmacist: *Please review for potential replacement for e-prescription and drug interaction check*, Taking Multivitamin MULTIPLE VITAMINS CAPSULE 1 CAP(S) ORALLY ONCE A DAY , Notes to Pharmacist: *Please review and pick correct strength-formulation from phorusan options. If intended option is not shown, [...] tab(s) orally twice a day , Taking Spironolactone 50 MG Tablet 1 tablet Orally twice a day , Taking HYDROcodone-Acetaminophen 7.5-325 MG Tablet 1 tab(s) orally every 6 hours , Medication List reviewed and reconciled with the patient * Allergies: T amiflu: dizziness. Objective: * Vitals: N urse: sw, Pain: 7-all over pain, Temp: 97.7, RR: 20, HR: 76, BP: 122/80, Ht: 5 ft 3 in, Wt: 232, BMI:41.09. * Examination: G eneral Examination: General P leasant and Cooperative, NAD on RA,. G lobally she is weak. Alert however and oriented x 3. In a wheelchair. Has a very difficult time standing. Diffuse pains when touched. No focal arthralgia symptoms. Lungs are clear, heart rate regular. She does have a tick bite on the back of her left leg. She reports this happened about 4 months ago and since that time she has had some problems with aches and pains. Assessment: * Assessment: 1. I hayder deficiency anemia, unspecified iron deficiency anemia type - D50.9 (Primary) ? 2 . H yperlipemia, idiopathic familial - E78.5 3 . A denocarcinoma, colon - C18.9 4 . D iastolic CHF, chronic - I50.32 5 . I nsect bite (nonvenomous), left thigh, initial encounter - S70.362A 6 . B itten or stung by nonvenomous insect and other nonvenomous arthropods, initial encounter - W57.XXXA ? Plan: * Treatment: Value Reference Range I HAYDER, TOTAL 58 45-160 - mcg/dL * I HAYDER BINDING CAPACITY 342 250-450 - mcg/dL (c alc) * % SATURATION 17 16-45 - % (calc) * F ERRITIN 36 16-288 - ng/mL * Vitaliy Sappfei Vasquez 10/16/2024 0 9:03:45 AM EDT > pt notifiedThis lab was reviewed by Boubacar Sapp on 10/16/2024 at 09:04 AM EDT ?LAB: COMPREHENSIVE METABOLIC PANEL (34866)* Value Reference Range G LUCOSE 97 65-99 - mg/dL * U JOYCE NITROGEN (BUN) 28 H 7-25 - mg/dL * C REATININE 1.48 H 0.60-0.95 - mg/dL * B UN/CREATININE RATIO 19 6-22 - (calc) * S ODIUM 142 135-146 - mmol/L * P OTASSIUM 4.3 3.5-5.3 - mmol/L * C HLORIDE 107 98-110 - mmol/L * C ARBON DIOXIDE 28 20-32 - mmol/L * C ALCIUM 9.0 8.6-10.4 - mg/dL * P ROTEIN, TOTAL 6.4 6.1-8.1 - g/dL * A LBUMIN 3.9 3.6-5.1 - g/dL * G LOBULIN 2.5 1.9-3.7 - g/dL (calc ) * A LBUMIN/GLOBULIN RATIO 1.6 1.0-2.5 - (calc) * B ILIRUBIN, TOTAL 0.4 0.2-1.2 - mg/dL * A LKALINE PHOSPHATASE 78 37-153 - U/L * A ST 17 10-35 - U/L * A LT 11 6-29 - U/L * E GFR 35 L > OR = 60 - mL/min/1 .73m2 * Boubacar Sapp Christina 10/16/2024 0 9:03:45 AM EDT > pt notifiedThis lab was reviewed by Boubacar Sapp on 10/16/2024 at 09:04 AM EDT ?LAB: CBC (INCLUDES DIFF/PLT) (6399)* Value Reference Range W LUISA BLOOD CELL COUNT 6.7 3.8-10.8 - Thousan d/uL * R ED BLOOD CELL COUNT 4.09 3.80-5.10 - Million/ uL * H EMOGLOBIN 11.4 L 11.7-15.5 - g/dL * H EMATOCRIT 39.1 35.0-45.0 - % * M CV 95.6 80.0-100.0 - fL * M CH 27.9 27.0-33.0 - pg * M CHC 29.2 L 32.0-36.0 - g/dL * R DW 16.4 H 11.0-15.0 - % * P LATELET COUNT 210 140-400 - Thousand/u L * N EUTROPHILS 53.5 - % * A BSOLUTE NEUTROPHILS 3585 5891-5091 - cells/uL * L YMPHOCYTES 30.2 - % * A BSOLUTE LYMPHOCYTES 2023 850-3900 - cells/uL * M ONOCYTES 12.9 - % * A BSOLUTE MONOCYTES 864 200-950 - cells/uL * E OSINOPHILS 3.0 - % * A BSOLUTE EOSINOPHILS 201 15-500 - cells/uL * B ASOPHILS 0.4 - % * A BSOLUTE BASOPHILS 27 0-200 - cells/uL * M PV 12.2 7.5-12.5 - fL * Boubacar Sapp 10/16/2024 0 9:03:45 AM EDT > pt notifiedThis lab was reviewed by Boubacar Sapp on 10/16/2024 at 09:04 AM EDT Notes: History of anemia, will track labs today to see if this is causing her problems with fatigue ?2.?Adenocarcinoma, colon? Notes: Follows with [facility] oncology??3.?Diastolic CHF, chronic? Notes: Given overall diastolic heart failure, poor functional status, etc. I do think she is a goodcandidate for a scooter/para mobility device. Will initiate referral for this? Referral To: ?Reason:Rehab medical for power scooter 4.?Insect bite (nonvenomous), left thigh, initial encounter? Start Amoxicillin Tablet, 875 MG, 1 tablet, Orally, Twice a day, 7 days, 14 Tablet, Refills 0.?LAB: LYME DISEASE AB W/REFL IA (IGG,IGM) (01131)* Value Reference Range L YME AB, SCREEN < or = 0.90 - index * Boubacar Sapp 10/16/2024 0 9:03:45 AM EDT > pt notifiedThis lab was reviewed by Boubacar Sapp on 10/16/2024 at 09:04 AM EDT Notes: Tick bite. Unclear time course, given her aches and pains will check Lyme titers. Cover withamoxicillin given her total symptom burden??5.?Bitten or stung by nonvenomous insect and other nonvenomous arthropods, initial encounter?LAB: LYME DISEASE AB W/REFL IA (IGG,IGM) (37022)* Value Reference Range L YME AB, SCREEN < or = 0.90 - index * Boubacar Sapp Christina 10/16/2024 0 9:03:45 AM EDT > pt notifiedThis lab was reviewed by Boubacar Sapp on 10/16/2024 at 09:04 AM EDT * Procedure Codes: G 2211 Complex e/m visit add on * Follow Up: p rn * * Sign off status: Completed true * Provider: Abdelrahman Mendoza MD Date: 0 10/10/2024 Generated for Maico mullen/Valentin/eTraymondsmitting on: 0 11/10/2024 05:13 PM EDT History and Physical Notes * HPI (History of Present Illness) Category Sub-Category Detail Notes Category Not es gen Fuentes is here for regular checkup. Overall does not feel very good. Is seeing a host of specialist, and feels like she continues to be swollen and have some fluid retention. She overall feels fairly weak. No focal symptoms however. Wonders about getting a mobility device given her overall chronic medical problems and difficulty getting around. Examination Category Sub-Category Detail Notes Category Not es General Examination General Pleasant and Cooperat sophia NAD on RA, Globally she is weak. Alert however and oriented x 3. In a wheelchair. Has a very difficult time standing. Diffuse pains when touched. No focal arthralgia symptoms. Lungs are clear, heart rate regular. She does have a tick bite on the back of her left leg. She reports this happened about 4 months ago and since that time she has had some problems with aches and pains Consultation Request Notes Referral Date Referring Provider Referred Provider Not dev 10/10/2024 Jose Mendoza , Rehab medica l for power Amie Streetooter
--- OUTSIDE RECORDS SUMMARY | 2024-10-17 10:30 | XMS_ITS | Encounter Summary ---
Author Organization [facility] Address [address] [place] [address] Care Team Providers Care Teaching Manager Name Role Phone Jose Mendoza MD Primary Care Provider [phone] Reason for Visit * Reason Comments Pacemaker Check Coronary Artery Disease Pt states she is here today for follow up CAD. SOA on exertion. No chest pain, palpitations or dizziness. Very weak. Encounter Details Date Type Department Care Team (Late st Contact Info) Description 10/17/2024 10:30 AM EDT Office Visit [facility] CARDIOLOGY [address] [place] [address] Reanna Krishnamurthy MD [address] [place] [address] Coronary artery disease involving [place] coronary artery of [place] heart without angina pectoris (Primary Dx); Bilateral leg edema; Presence of cardiac pacemaker Social History Tobacco Use Types Packs/Day Years Used Date Smoking Tobacco: Never Passive Smoke Exposure: Never Smokeless Tobacco: Never Tobacco Cessation:Counseling Given: Yes Alcohol Use Standard Drinks/Week Comments Never 0 (1 standard drink = 0.6 oz pur e alcohol) AUDIT-C Answer Date Recorded Q1: How often do you have a drink containing alcohol? Never 03/21/2024 Q2: How many drinks containi ng alcohol do you have on a typical day when you are drinking? Patient does not drink Q3: How often do you have si x or more drinks on one occasion? Never 03/21/2024 Abuse Screen Answer Date Recorded Feels Unsafe at Home or Work/School no 03/21/2024 Feels Threatened by Someone no 02/23 Does Anyone Try to Keep You From Having Contact with Others or Doing Things Outside Your Home? no 03/21/2024 Physical Signs of Abuse Present no 03/21/2024 Housing Stability Answer Date Recorded Current Living Arrangements home 02/23 Potentially Unsafe Housing Conditions Not on gopal e 03/21/2024 Disabilities Answer Date Recorded Difficulty Concentrating, Remembering or Making Decisions no 03/21/2024 Difficulty Managing Errands Independently yes 03/21/2024 Comments Unknown Sex and Gender Information Value Date Recorded Sex Assigned at Not on file Legal Sex Female 11:46 AM EDT Gender Identity Not on file Sexual Orientation Not on file documented as of this encounter Last Filed Vital Signs Vital Sign Reading Time Taken Comments Blood Pressure 120/70 10/17/2024 10:36 AM EDT Pulse 82 10/17/2024 10:36 AM EDT Temperature - - Respiratory Rate - - Oxygen Saturation 93% 10/17/2024 10:36 AM EDT Inhaled Oxygen Concentration - - Weight 108 kg (237 lb) 10/17/2024 10:36 AM EDT Height 160 cm (5' 3 ) 10/17/2024 10:36 AM EDT Body Mass Index 41.98 10/17/2024 10:36 AM EDT documented in this encounter Progress Notes * Reanna Krishnamurthy MD - 10/17/2024 10:30 AM EDT Images from the original note were not included. Cardiovascular and Sleep Consulting Provider Note Date: 10/17/2024 Name: Gina Stone : 1945 PCP: Jose Mendoza MD Chief Complaint Patient presents with Pacemaker Check Coronary Artery Disease Pt states she is here today for follow up CAD. SOA on exertion. No chest pain, palpitations or dizziness. Very weak. Subjective History of Present Illness Gina Stone is a 79 y.o. female who presents today for follow-up and pacemaker check. States that is really weak.States that she is taking forever to get strength built back up after colon cancer surgery. They took 2 foot of bowell and did not have to have colostomy.States that bowelshas been working good. Denies chest pain or discomfort.No palpitations No dizziness or lightheadedness. No syncope or falls. Shortness of air on exertion.relays that walking is almost done for because her back hurts to much. Has had recent labs and reviewed. Biggest problem is weakness and shortness of breath. States that has gained a lot of weight and fluid pills are not taking nothing off of her. Have not noticed an increase in swelling but legs are really tender and sore. 10/17/2024 Cardiology/sleep history 1. Coronary artery disease-stents LAD LCx and D1 2010, 2014 mild CAD, 2018 mild CAD with 40% RCA and 60% ostial PLB/circumflex 2. Sick sinus syndrome status post pacemaker 3. Carotid artery disease-mild 4. Hypertension 03/21/2024 C- Non-flow limiting coronary disease. Widely patent LAD, diagonal, and circumflex stents. 30% RCA and OM 2 disease. LVEF 65% Nuclear stress 11/29/23 low risk ECHO 10/28/23 Left ventricular systolic function is normal. Left ventricular ejection fraction appears to be 61 - 65%. Left ventricular wall thickness is consistent with mild concentric hypertrophy. Left ventricular diastolic function is consistent with (grade I) impaired relaxation. There is mild tomoderate mitral regurgitation present. Estimated right ventricular systolic pressure from tricuspidregurgitation is normal (<35 mmHg). Nuclear stress 10/02/2022 normal ejection fraction. No s scintigraphic evidence of ischemia. 02/28/2020 echo overall left ventricular systolic function is normal with an EF 55-60%. The left ventricle size is normal. There is mild concentric left ventricular hypertrophy. The right ventricle is mildly enlarged. There is mild aortic valve sclerosis without stenosis. Mild mitral regurgitation ispresent. The diastolic function is abnormal. Mild tricuspid regurgitation is present. RVSP is normal. Allergies Allergen Reactions Diltiazem Palpitations Crestor [Rosuvastatin] Myalgia Lescol [Fluvastatin] Myalgia Metoprolol Unknown - Low Severity Oseltamivir Dizziness Simvastatin Unknown - Low Severity Current Outpatient Medications: alendronate (FOSAMAX) 70 MG tablet, 1 tab(s) orally once a week for 90 days, Disp: , Rfl: amoxicillin (AMOXIL) 875 MG tablet, Every 12 (Twelve) Hours., Disp: , Rfl: aspirin 81 MG chewable tablet, Chew 1 tablet Daily., Disp: , Rfl: baclofen (LIORESAL) 10 MG tablet, Take 1 tablet by mouth 3 (Three) Times a Day., Disp: , Rfl: Calcium Carb-Cholecalciferol (OS-EHSAN PO), Take 1 tablet by mouth 2 (Two) Times a Day., Disp: , Rfl: ferrous sulfate (FeroSul) 325 (65 FE) MG tablet, TAKE 1 TABLET TWICE DAILY for 90 (Patient taking differently: Take 1 tablet by mouth Daily.), Disp: , Rfl: furosemide (LASIX) 40 MG tablet, Take 0.5 tablets by mouth Daily. (Patient taking differently: Take1 tablet by mouth Daily.), Disp: , Rfl: Gemtesa 75 MG tablet, Take 1 tablet by mouth Daily., Disp: , Rfl: HYDROcodone-acetaminophen (NORCO) 7.5-325 MG per tablet, TAKE ONE TABLET BY MOUTH EVERY 6 HOURS MAYCAUSE DROWSINESS, Disp: , Rfl: isosorbide mononitrate (IMDUR) 60 MG 24 hr tablet, Take 1 tablet by mouth Daily., Disp: , Rfl: lisinopril (PRINIVIL,ZESTRIL) 40 MG tablet, Take 1 tablet by mouth Daily. (Patient taking differently: Take 0.5 tablets by mouth Daily.), Disp: , Rfl: methocarbamol (ROBAXIN) 500 MG tablet, Take 1 tablet by mouth 3 (Three) Times a Day As Needed for Muscle Spasms., Disp: , Rfl: multivitamin with minerals (MULTIVITAMIN ADULT PO), Take 1 tablet by mouth Daily., Disp: , Rfl: nebivolol (BYSTOLIC) 10 MG tablet, Take 1 tablet by mouth Daily., Disp: , Rfl: pantoprazole (PROTONIX) 40 MG EC tablet, Take 1 tablet by mouth 2 (Two) Times a Day., Disp: , Rfl: potassium chloride 10 MEQ CR tablet, Take 1 tablet by mouth Daily., Disp: 90 tablet, Rfl: 3 pravastatin (PRAVACHOL) 80 MG tablet, Take 1 tablet by mouth Every Night., Disp: , Rfl: pregabalin (LYRICA) 75 MG capsule, TAKE ONE CAPSULE BY MOUTH TWICE DAILY FOR PAIN MAY CAUSE DROWSINESS, Disp: , Rfl: Xarelto 20 MG tablet, Take 1 tablet by mouth Daily., Disp: , Rfl: Past Medical History: Diagnosis Date Arthritis Carotid artery stenosis Colon cancer Coronary artery disease GERD (gastroesophageal reflux disease) Hyperlipidemia Hypertension PVD (peripheral vascular disease) Seizures SSS (sick sinus syndrome) Past Surgical History: Procedure Laterality Date CARDIAC CATHETERIZATION CARDIAC CATHETERIZATION N/A 03/21/2024 Procedure: Left Heart Cath - Right radial access; Surgeon: Dewayne Rios MD; Location: [facility] CATH INVASIVE LOCATION; Service: Cardiovascular; Laterality: N/A; CATARACT EXTRACTION COLON SURGERY 07/10/2024 HYSTERECTOMY KNEE SURGERY PACEMAKER IMPLANTATION Family History Problem Relation Age of Onset Heart attack Mother Diabetes Mother COPD Father Heart failure Sister Lung cancer Brother Social History Socioeconomic History Marital status: Tobacco Use Smoking status: Never Passive exposure: Never Smokeless tobacco: Never Vaping Use Vaping status: Never Used Substance and Sexual Activity Alcohol use: Never Drug use: Never Sexual activity: Defer Objective Vital Signs: BP 120/70 (BP Location: Right arm, Patient Position: Sitting, Cuff Size: Large Adult) Pulse 82 Ht 160 cm (63 ) Wt 108 kg (237 lb) SpO2 93% BMI 41.98 kg/m?? Estimated body mass index is 41.98 kg/m?? as calculated from the following: Height as of this encounter: 160 cm (63 ). Weight as of this encounter: 108 kg (237 lb). Physical Exam Constitutional: Appearance: Normal appearance. She is well-developed. HENT: Head: Normocephalic and atraumatic. Eyes: General: No scleral icterus. Pupils: Pupils are equal, round, and reactive to light. Cardiovascular: Rate and Rhythm: Normal rate and regular rhythm. Heart sounds: Normal heart sounds. No murmur heard. Pulmonary: Breath sounds: Normal breath sounds. No wheezing or rhonchi. Musculoskeletal: Right lower leg: Edema present. Left lower leg: Edema present. Skin: Capillary Refill: Capillary refill takes less than 2 seconds. Coloration: Skin is not cyanotic. Nails: There is no clubbing. Neurological: Mental Status: She is alert and oriented to person, place, and time. Motor: No weakness. Gait: Gait abnormal (wheelchair). Psychiatric: Mood and Affect: Mood normal. Behavior: Behavior is cooperative. Thought Content: Thought content normal. Cognition and Memory: Memory normal. Assessment and Plan Diagnoses and all orders for this visit: 1. Coronary artery disease involving [place] coronary artery of [place] heart without angina pectoris(Primary) 2. Bilateral leg edema 3. Presence of cardiac pacemaker PLAN: -did well with colon ca surgery, still fatigued post op -edema stable, does not want to go up on lasix, instructed to drink less water, she is drinking 80oz, go to 40-60oz -no new chest pain, other vaz on medical therapy,did well with stress ofsurgery. -PM showed good battery life and lead function. Follow Up Return in about 3 months (around 01/17/2025) for Recheck symptoms, Patient OK with TAPEMAN visit. Sarai Krishnamurthy MD Cardiology and Sleep [facility] 10/17/2024 Please note that this explicitly excludes time spent on other separate billable services such as performing procedures or test interpretation, when applicable. This note was created using dictation software which occasionally transcribes nonsensical phrases. Please contact the provider if any clarification is needed. documented in this encounter Plan of Treatment Upcoming Encounters Date Type Department Care Team (Late st Contact Info) Description 01/25/2025 8:30 AM EST Office Visit [facility] CARDIOLOGY [address] [place] [address] Ayesha Galo, RETAIL INVENTORY CONTROL CLERK [address] [place] [address] [place] [address] documented as of this encounter Visit Diagnoses Diagnosis Coronary artery disease involving [place] coronary artery of [place] heart without angina pectoris- Primary Bilateral leg edema Edema Presence of cardiac pacemaker Cardiac pacemaker in situ documented in this encounter Care Teams Teaching Manager Relationship Specialty Start Date End Date Jose Mendoza MD [address] [facility] [address] [place] [address] PCP - General Adolescent Medicine 08/03/22 documented as of this encounter
--- OUTSIDE RECORDS SUMMARY | 2024-10-30 06:15 | XMS_ITS ---
Author Organization [facility] Address [address] [place] [address] Care Team Providers Care Steel Pickler Name Role Phone Jose Mendoza Primary Care Provider [phone] Telma Francois Unavailable [phone] Allergies Allergen (clinical drug ingredient) Drug/Non Drug [...] review and pick correct strength-formulati on from CoinJar options. If intended option is not shown, [...] 10/30/2024 Encounters Encounter Location Date Provider Diagnosis [address] [address] 10/30/2024 Telma Francois Bronchopneumonia J18 .0 Assessments [...] Reason: Provider Name:Jose Mendoza, 12/14/2024 11:45:00 AM, [address] [place] [address], [phone], Medications Administered Medication Instructions Date of Administration Dosage Notes Dexamethasone 4mg Injection 10/30/2024 4 mg Progress Notes * Helena TIMOB:1945 (79 yo F)Acc No.[id number]:10/30/2024 Progress Notes Patient: Gina MARTINEZ Provider: Angi Francois APRN :1945 A ge:79 Y S ex:Female Date:10/30/2024 Address:[address] [place], [place] [id number] Pcp:Jose Mendoza Subjective: * Chief Complaints: * [...] *Please review and pick correct strength-formulation from CoinJar options. If intended option is not shown, [...] J 1100 Dexamethasone Sodium Phosphate 4mg Injection, [address] THERAPEUTIC ADMINISTRATION * Follow Up: p rn * * Sign off status: Completed true * Provider: Angi Francois APRN Date: 10/30/2024 Generated for Maico mullen/Valentin/Jessica on: 11/10/2024 05:13 PM EDT History and Physical [...]
--- OUTSIDE RECORDS SUMMARY | 2024-11-06 10:00 | XMS_ITS ---
Author Organization [facility] Address [address] [place] [address] Care Team Providers Care Rail Washer Name Role Phone Junaid Mendozahen Primary Care Provider [phone] Telma Francois Unavailable [phone] Allergies Allergen (clinical drug ingredient) Drug/Non Drug Allergy documented on EMR Reaction Allergy Type Onset Date Status oseltamivir Tamiflu dizziness Drug Allergy Activ e Results Component Value Reference Range Notes M-Complete Blood Count Auto Diff Reviewed date:11/06/2024 04:22:57 PM Interpretation: Performing Lab: Notes/Report: WBC 7.6 4.8-10.8 K/mm3 RBC 4.08 4.20-5.40 M/mm3 HGB 11.7 12.2-16.2 g/dL HCT 36.3 37.0-47.0 % MCV 89.0 81-99 fl MCH 28.7 27.0-31.2 pg MCHC 32.2 31.8-35.4 g/dL RDW 16.1 11.5-17.5 % PLT 214 142-424 K/mm3 MPV 11.7 7.4-10.4 fl NE% 56.2 37.0-80.0 % LY% 27.3 10-50 % MO% 12.5 1.7-9.3 % EO% 3.4 0.1-12.0 % BA% 0.5 0.1-2.0 % NE# 4.2 1.8-7.8 K/mm3 LY# 2.1 0.7-4.5 K/mm3 MO# 1.0 0.1-1.0 K/mm3 EO# 0.3 0.0-0.4 Kmm3 BA# 0.0 0-0.2 K/mm3 RDW-SD 53.1 NRBC% 0 IG% 0.1 NRBC# 0 IG# 0.01 M-Comprehensive Metabolic Pa ilana Reviewed date:11/06/2024 07:44:48 PM Interpretation: Performing Lab: Notes/Report: NA 143 136-145 mmol/L K 4.3 3.5-5.1 mmoL/L CL 108 98-107 mmol/L CO2 28 22.0-30.0 mmol/L GAP 11.3 5-15 mEq/L BUN 21 7-17 mg/dl CREATT 1.30 0.52-1.04 mg/dl GFRAA 48 >60 ML/MIN EGFR 39 >60 ml/min GLU 98 74-100 mg/dl CA 9.3 8.4-10.2 mg/dl BILIT 0.6 0.2-1.3 mg/dl AST 27 14-36 U/L ALT 16 12-78 U/L TP 6.9 6.3-8.2 g/dl ALB 4.0 3.5-5.0 g/dl GLOB 2.9 1.3-3.2 g/dL AGRATIO 1.4 1.1-1.8 ALP 90 38-126 U/L M-BNP Reviewed date:11/06/2024 07:44:48 PM Interpretation: Performing Lab: Notes/Report: BNPNTP 405 0-450 pg/mL M-Thyroid Stimulating Hormon e Reviewed date:11/06/2024 07:44:48 PM Interpretation: Performing Lab: Notes/Report: TSH 0.45 0.465-4.68 uIU/mL X ray : Chest Reviewed date:11/08/2024 08:42:33 AM Interpretation: Performing Lab: Notes/Report: X ray : Chest Reviewed date:11/08/2024 08:42:33 AM Interpretation: Performing Lab: Notes/Report: Ultrasound : Abdomen Reviewed date:11/10/2024 10:18:28 AM Interpretation: Performing Lab: Notes/Report: Reason For Referral Reason US abdomen Diagnosis 1 Abdominal distension (R14.0) Referral Organization [facility] Referring Provider First Name Telma Referring Provider Last Name Priscila Referring Provider Speciality Family [facility] General Notes Teri Beyer 04:44:36 PM > faxed and they will call patient to schedule Referral Priority Urgent REASON FOR VISIT S.O.A- not sleeping, abdomen tender to touch , bloating Medications Medication SIG (Take, Route, Frequency, Duration) Notes Start Date End Date Status NEBIVOLOL 10 MG TAKE 1 TABLET EVERY DAY; Duration: 90 *Please review for potential replacement for e-prescription and drug interaction check* Active Gemtesa 75 MG TAKE 1 TABLET EVERY DAY; Duration: 90 Active Furosemide 40 MG 1 tab(s) orally once a day; Duration: 90 days 04/25/2024 Active HYDROcodone-Acetaminop hen 7.5-325 MG 1 tab(s) orally every 6 hours; Duration: 30 days 10/05/2024 Active Spironolactone 50 MG 1 tablet Orally twice a day; Duration: 30 days 08/17/2024 Active Alendronate Sodium 70 MG 1 tab(s) orally once a week; Duration: 90 days Active Fluticasone Propionate 50 MCG/ACT 1 spray(s) in each nostril 2 times a day; Duration: 30 days 06/23/2023 Active Peridex 0.12 % 15 mL orally 2 times a day; Duration: 30 days 12/31/2022 Active FeroSul 325 (65 Fe) MG TAKE 1 TABLET TWICE DAILY; Duration: 90 Active Triamcinolone Acetonide 0.5 % 1 emigdio applied topically 2 times a day; Duration: 7 days 09/16/2023 Active Baclofen 10 MG 1 tab(s) orally 3 times a day; Duration: 90 days Active Aspirin 81 MG 1 tab(s) orally once a day Active Multivitamin MULTIPLE VITAMINS 1 CAP(S) ORALLY ONCE A DAY *Please review and pick correct strength-formulati on from Archetypesan options. If intended option is not shown, discontinue and re-order from Quick Search* Active OS-EHSAN 500 1250 MG 1 TAB(S) ORALLY BID *Please review for potential replacement for e-prescription and drug interaction check* Active Methocarbamol 500 MG 1-2 tab(s) orally 3 times a day; Duration: 5 day(s) 03/26/2020 Active Isosorbide Mononitrate ER 60 MG TAKE 1 TABLET EVERY MORNING; Duration: 90 Active Pravastatin Sodium 80 MG TAKE 1 TABLET EVERY DAY; Duration: 90 Active Xarelto 20 MG TAKE 1 TABLET ONE TIME DAILY IN THE EVENING; Duration: 90 Active Lisinopril 20 MG TAKE 1 TABLET EVERY DAY; Duration: 90 Active Pantoprazole Sodium 40 MG TAKE 1 TABLET TWICE DAILY; Duration: 90 Active Vital Signs Temperature 98 degrees Fahrenheit 11/06/2024 Oximetry 99 11/06/2024 Heart Rate 74 /min 11/06/2024 Blood pressure systolic 124 mm Hg 11/07/19 Blood pressure diastolic 72 mm Hg 025 Height 5 ft 3 in in 11/06/2024 Weight 0 lbs 11/06/2024 BMI 0 kg/m2 11/06/2024 Encounters Encounter Location Date Provider Diagnosis [address] [address] 11/06/2024 Telma McNees Shortness of breath R06.02 and Abdominal distension R14.0 Assessments Encounter Date Diagnosis (ICD Code) Assessment Notes Treatment Notes Treatment Clinical Notes Section Notes 11/06/2024 Shortness of breath (ICD-10 - R06.02) CBC and CMP at baseline BNP 400 CXR - no acute pathology Extensive work-up over the last year with Echo, CT chest, LHC.. Follows closely with cardiology, last seen 08/18/24 Advised to schedule FU with cardiology. Will obtain US of abd to see if ascites is contributing to her discomfort. Advised to weigh daily and measure abd girth daily. Return precautions discussed 11/06/2024 Abdominal distension (ICD-10 - R14.0) Plan Of Treatment Treatment Notes Assessment Notes Shortness of breath CBC and CMP at baseline BNP 400 CXR - no acute pathology Extensive work-up over the last year with Echo, CT chest, LHC.. Follows closely with cardiology, last seen 08/18/24 Advised to schedule FU with cardiology. Will obtain US of abd to see if ascites is contributing to her discomfort. Advised to weigh daily and measure abd girth daily. Return precautions discussed Referrals Referral Date Details 11/06/2024 11/06/2024, US abdom en Next Appt Details Follow Up: pending US, Reaso n: Provider Name:Jose Mendoza, 12/14/2024 11:45:00 AM, 2017 [facility], [facility], [place], [address], Progress Notes * Helena TIMOB:1945 (79 yo F)Acc No.[id number]:11/06/2024 Progress Notes Patient: Gina MARTINEZ Provider: Angi Francois APRN :1945 A ge:79 Y S ex:Female Date:11/06/2024 Address:[address] [place] [id number] Pcp:Jose Mendoza Subjective: * Chief Complaints: * 1 . S.O.A- not sleeping, abdomen tender to touch , bloating. * HPI: g en: 79 y/o female presents for FU on SOA. Seen in the office 10/30 dx bronchopneumonia, treated with augmentin which she has finished and given dexamethasone IM. Today reports SOA is worse. Poor exercise tolerance. RA oxygen saturations 99%. Minimal LE edema. Reports abd is distended, feels tender, like there is a band squeezing her under breasts. No N/V/C/D. * ROS: C ARDIOLOGY: no D izziness. n o C hest pain. n o P alpitations. L eg edema y es, a t baseline. S hortness of breath y es, a t baseline. C ONSTITUTIONAL: no L oss of appetite. n o F ever. W eakness?yes. * Medical History: o steoporosis - most [...] *Please review and pick correct strength-formulation from Archetypesan options. If intended option is not shown, [...] TAKE 1 TABLET EVERY DAY , Discontinued Amoxicillin-Pot Clavulanate 875-125 MG Tablet 1 tablet Orally every 12 hrs , Medication List reviewed and reconciled with the patient * Allergies: T amiflu: dizziness. Objective: * Vitals: N urse: dw, Pain: 9, Temp: 98, Pulse O2: 99, RR: 24, HR: 74, BP: 124/72, Ht: 5 ft 3 in, Wt: 0, BMI:0. * Examination: G eneral Examination: General P leasant and Cooperative, NAD on RA,. Chest: n ormal shape and expansion. Heart: R egular Rate and Rhythm, no murmur, rubs or gallops. HEENT: u nremarkable . Lungs: f ine crackles right base, otherwise clear. Abdomen: s omewhat distended, mild diffuse tenderness. Neurologic Exam: A lert and oriented x 3 . Skin: w ithout acute rashes. Psych N ormal Mood/Affect. t race BLE edema. Assessment: * Assessment: 1. S hortness of breath - R06.02 (Primary) 2 . A bdominal distension - R14.0 Plan: * Treatment: Value Reference Range W julissa Blood Count 7.6 4.8-10.8 - K/mm3 * R ed Blood Count 4.08 L 4.20-5.40 - M/mm3 * H emoglobin 11.7 L 12.2-16.2 - g/dL * H ematocrit 36.3 L 37.0-47.0 - % * M jesus alberto Corpuscular Volume 89.0 81-99 - fl * M jesus alberto Corpuscular Hemoglobin 28.7 27.0-31.2 - p g * M jesus alberto Corpuscular HGB Conc 32.2 31.8-35.4 - g/d L * R ed Cell Distribution Width 16.1 11.5-17.5 - % * P latelet Count 214 142-424 - K/mm3 * M jesus alberto Platelet Volume 11.7 H 7.4-10.4 - fl * N eutrophils % 56.2 37.0-80.0 - % * L ymphocytes % 27.3 10-50 - % * M onocytes % 12.5 H 1.7-9.3 - % * E osinophils % 3.4 0.1-12.0 - % * B asophils % 0.5 0.1-2.0 - % * N eutrophils # 4.2 1.8-7.8 - K/mm3 * L ymphocytes # 2.1 0.7-4.5 - K/mm3 * M onocytes # 1.0 0.1-1.0 - K/mm3 * E osinophils # 0.3 0.0-0.4 - Kmm3 * B asophils # 0.0 0-0.2 - K/mm3 ?LAB: M-Comprehensive Metabolic Panel (Collection Date & Time - 11/06/2024 03:29 PM)* Value Reference Range S odium 143 136-145 - mmol/L * P otassium 4.3 3.5-5.1 - mmoL/L * C hloride 108 H 98-107 - mmol/L * C arbon Dioxide 28 22.0-30.0 - mmol/L * A nion Gap 11.3 5-15 - mEq/L * B lood Urea Nitrogen 21 H 7-17 - mg/dl * C reatinine,Serum 1.30 H 0.52-1.04 - mg/dl * G FR () 48 L >60 - ML/MIN * E stimated Glomerular Filt Rate 39 L >60 - ml/m in * G lucose 98 74-100 - mg/dl * C alcium 9.3 8.4-10.2 - mg/dl * B ilirubin,Total 0.6 0.2-1.3 - mg/dl * A spartate Amino Transferase 27 14-36 - U/L * A lanine Aminotransferase 16 12-78 - U/L * T otal Protein,Serum 6.9 6.3-8.2 - g/dl * A lbumin Level 4.0 3.5-5.0 - g/dl * G lobulin 2.9 1.3-3.2 - g/dL * A lbumin/Globulin Ratio 1.4 1.1-1.8 - * A lkaline Phosphatase 90 38-126 - U/L ?LAB: M-BNP (Collection Date & Time - 11/06/2024 03:29 PM) ?LAB: M-Thyroid Stimulating Hormone (Collection Date & Time - 11/06/2024 03:29 PM)* Value Reference Range T hyroid Stimulating Hormone 0.45 L 0.465-4.68 - uIU/mL ?Imaging: X ray : Chest* Notes: CBC and CMP at baseline BNP 400 CXR - no acute pathology Extensive work-up over the last year with Echo, CT chest, LHC.. Follows closely with cardiology, last seen 08/18/24 Advised to schedule FU with cardiology. Will obtain US of abd to see if ascites is contributing to her discomfort. Advised to weigh daily and measure abd girth daily. Return precautions discussed??2.?Abdominal distension?Imaging: Ultrasound : Abdomen* Teri Beyer 11/06/2024 04:42:00 PM EDT > No auth Telma Goodrich 11/10/2024 10:13:42 AM EDT > gallbladder with stones and distended, concerened for acute infection, if pain is worse needs to go to ED for evaluationBoubacar Sapp 11/10/2024 10:17:53 AM EDT > pt notifiedThis DI was reviewed by Boubacar Sapp on 11/10/2024 at 10:18 AM EDT * ? Referral To: ?Reason:US abdomen * Follow Up: p ending US * * Sign off status: Completed true * Provider: Angi Francois APRN Date: 0 11/06/2024 Generated for Maico mullen/Valentin/eTransmitting on: 11/10/2024 05:13 PM EDT History and Physical Notes * HPI (History of Present Illness) Category Sub-Category Detail Notes Category Not es gen 79 y/o female p resents for FU on SOA. Seen in the office 10/30 dx bronchopneumonia, treated with augmentin which she has finished and given dexamethasone IM. Today reports SOA is worse. Poor exercise tolerance. RA oxygen saturations 99%. Minimal LE edema. Reports abd is distended, feels tender, like there is a band squeezing her under breasts. No N/V/C/D Examination Category Sub-Category Detail Notes Category Not es General Examination HEENT: unremarkable trace B LE edema Heart: Regular Rate and Rhy thm, no murmur, rubs or gallops Lungs: fine crackles right base, otherwise clear Abdomen: somewhat distended, mild diffuse tenderness Skin: without acute rashes Neurologic Exam: Alert and oriented x 3 Chest: normal shape and exp ansion General Pleasant and Coopera tive, NAD on RA, Psych Normal Mood/Affect Consultation Request Notes Referral Date Referring Provider Referred Provider Not es 11/06/2024 Telma Francois , US abdomen
--- NOTE | 2024-11-10 17:11 | ECG_ITS ---
APPROVED REPORT Exam: Resting ECG HR:61 bpm ECG Measurements Heart Rate 61 AXES CA 200 P 248 QRSd 84 QRS 30 QT 403 T 41 QTc 405 Conclusion ELECTRONIC ATRIAL PACEMAKER ABNORMAL RHYTHM ECG UNCONFIRMED REPORT NSR. No ST elevation or depression Electronically signed by : MATHEW SPENCER, 11/11/2024 15:45:59
--- OUTSIDE RECORDS SUMMARY | 2024-11-10 17:14 | XMS_ITS | Encounter Summary ---
[facility] Address [address] [place] [address] Care Team Providers Care Heel Seat Pounder Name Role Phone Jose Mendoza MD Primary Care Provider [phone] Reason for Visit * Reason Onset Date Comments AYESHA MARADIAGA- REQUEST 08/15/2024 Encounter Details Date Type Department Care Team (Late st Contact Info) Description 08/15/2024 Telephone [facility] CARDIOLOG[facility] [address] [place] [address] Ayesha Maradiaga, CONDITIONER TENDER [address] [place], [place] [id number] AYESHA MARADIAGA- REQUEST Social History Tobacco Use [...] to patient: Self Best call back number: [phone] Chief complaint: PATIENT HAVING SHORTNESS OF BREATHE AND IS WANTING SEEN SOONER PLEASE ADVISE. Type of visit: FOLLOW-UP Requested date: APARNA If rescheduling, when is the original appointment: 10.04.24 documented in this encounter Plan of Treatment Upcoming Encounters Date Type Department Care Team (Late st Contact Info) Description 01/25/2025 8:30 AM EST Office Visit [facility] C[facility] [address] [place] [address] Ayesha Maradiaga APRN [address] [place] [address] documented as of this encounter Visit Diagnoses Not on filedocumented in this encounter Care Teams Heel Seat Pounder Relationship Specialty Start Date End Date Jose Mendoza MD [address] [place] [address] PCP - General Adolescent Medicine 08/03/22 documented as of this encounter
--- OUTSIDE RECORDS SUMMARY | 2024-11-10 17:14 | XMS_ITS | Encounter Summary ---
Author Organization [facility] Address [address] [place] [address] Care Team Providers Care Patent Litigation Associate Name Role Phone Jose Mendoza MD Primary Care Provider [phone] Encounter Details Date Type Department Care Team [...] [facility] [address] [place] [address] Ayesha Galo, PROOFREADER [address] [place] [address] [place] [address] documented as of this encounter Visit Diagnoses Not on filedocumented in this encounter Care Teams Patent Litigation Associate Relationship Specialty Start Date End Date Jose Mendoza MD [address] [place] [address] PCP - General Adolescent Medicine 08/03/22 documented as of this encounter
--- OUTSIDE RECORDS SUMMARY | 2024-11-10 17:14 | XMS_ITS | Clinical Summary ---
Author Organization [facility] Address [address] [place] [address] Care Team Providers Care Board Writer Name Role Phone Jose Mendoza MD Primary Care Provider [phone] Allergies No known active allergies Medications alendronate [...] tablet by mouth daily. Active HYDROcodone-acetam inophen ([place]) 7.5-325 MG tablet Take 1 tablet by [...] exertion 01/31/2024 Coronary artery disease invo lving [place] coronary artery of [place] heart without angina pectoris 04/05/2023 Encounters Date Type Department Care Team Description 08/15/2024 3:00 PM EDT Office Visit [facility] Multidisciplinary Oncology Clinic [address] [place] [phone] Mata Smalls MD Malignant neoplasm of ascending [...] any time in the past 12 m [facility], were you homeless or living in a fdc (including now)? No 07/11/2024 Utilities Answer Date Recorded In the past 12 months has th e [employer], gas, oil, or water company threatened to [...] PM EST Appointment [facility] [address] [place] [address] 01/09/2025 2:30 PM EST Office Visit [facility] [address] [place] [address] Mata Smalls MD [address] [facility] [address] [place] [phone] 01/09/2025 2:30 PM EST Clinical Support [facility] [address] [place] [address] Health Maintenance Due Date Last [...] or (1 - 1-dose 75+ series) 2018 [id number] Vaccine (3 - season) 2024 12/26/2020, 05/02/2020 [...] updated to appropriate status: Yes Care Teams Board Writer Relationship Specialty Start Date End Date Jose Mendoza MD [address] [place] [address] PCP - General Internal Medicine 05/23/24
--- OUTSIDE RECORDS SUMMARY | 2024-11-10 17:14 | XMS_ITS | Encounter Summary ---
Author Organization Healthcare Address [address] [place] [address] Care Team Providers Care Director Process Engineering Name Role Phone Jose Mendoza MD Primary Care Provider [phone] Encounter Details Date Type Department Care Team (Late st Contact Info) Description 06/15/2024 Lab Requisition [facility] [address] [place] [address] Mata Smalls MD [address] [address] Anemia, unspecified Social History Tobacco [...] EST Appointment [facility] [address] [place] [address] 01/09/2025 2:30 PM EST Office Visit [facility] [address] [place] [address] Mata Smalls MD [address] [address] 01/09/2025 2:30 PM EST Clinical Support [facility] [address] [place] [address] documented as of this encounter Procedures Procedure Name Priority Date/Time Associated Diagnosis Comments SURGICAL PATHOLOGY CONSULT Routine 06/15/2024 1:25 PM EDT Anemia, unspecified documented in this encounter Results * Surgical Pathology Consult (06/15/2024 1:25 PM EDT) Case Report Sugical Pathology Consult Case: [id number] Authorizing Provider: Mata Smalls MD Collected: 06/15/2024 1325 Ordering Location: [facility] Lab Received: 06/15/2024 1326 Pathologist: Mick Dash MD Specimen: Colon, [id number] 2:47 PM EDT [facility] Final Diagnosis (OUTSIDE CASE: [id number], PARTS C&D; COLLECTED ON 06/07/2024): COLON, HEPATIC FLEXURE, BIOPSY (C): - ADENOCARCINOMA, POORLY DIFFERENTIATED (SEE COMMENT) SIGMOID COLON, POLYP, BIOPSY (D): - ADENOCARCINOMA, POORLY DIFFERENTIATED (SEE COMMENT) 2:47 PM EDT [facility] at 1447 EDT Comment The clinical impression [...] tumor with enteric differentiation. 2:47 PM EDT [facility] Clinical Information D64.9 - Anemia, unspecified [ICD-10-CM] 2:47 PM EDT [facility] Special and Immunohistochemical Stains Immunohistochemica l stains that have been performed and interpreted by the outside institution (not reviewed here), have been reported as follows: Positive: CDX2, SATB2 (focal, weak) Negative: CK7, CK20, SYNAPTOPHYSIN, CD56 MMR proteins; IHC interpretation (per report) Loss of nuclear expression of MLH1 and PMS2 2:47 PM EDT [facility] Gross Description A. [id number] Received along with a corresponding pathology report from [facility] are 2 slides labeled outside case: [id number] collected on 06/07/2024. 2:47 PM EDT [facility] Note: A resident was involved in the service. I attest I examined the relevant preparations for the specimens and confirmed the diagnosis or interpretation. 2:47 PM EDT [facility] Tissue Colon structure / Unknown 06/15/2024 1:25 PM EDT 06/15/2024 1:26 PM EDT us Mata Smalls MD LAB PATHOLOGY ORDERABLES Final Result [facility] [address] [place] [address] documented in this encounter Visit Diagnoses Diagnosis Anemia, unspecified documented in this encounter Care Teams Director Process Engineering Relationship Specialty Start Date End Date Jose Mendoza MD [address] [place] [address] [place] [address] PCP - General Internal Medicine 05/23/24 documented as of this encounter
--- OUTSIDE RECORDS SUMMARY | 2024-11-10 17:14 | XMS_ITS | Clinical Summary ---
Author Organization [facility] Address [address] [place] [address] Care Team Providers Care Converting Supervisor Name Role Phone Jose Mendoza MD Primary Care Provider [phone] Allergies Active Allergy Reactions Criticality Noted Date [...] (congestive heart failure),Beasley ry artery disease involving andreafski coronary artery of andreafski heart without angina pectoris Take 1 tablet [...] sound GI in nature. Orders: Case Request Felter Tennis Balls: Left Heart Cath Dyspnea on exertion 01/31/2024 [...] diuretics. Plans to get legs wrapped at [facility]. Assessment & Plan (08/18/2024 4:01 PM EDT): [...] diuretics. Plans to get legs wrapped at [facility]. Abdominal pain 11/18/2023 Assessment & Plan (12/08/2023 11:41 PM EDT): Nuclear stress test and Abd CT reviewed. Has GI follow-up at [facility] 12/28/23. Assessment & Plan (11/18/2023 3:01 PM [...] EDT): Patient had recent ER visit at [facility]. She was noted to have a proBNP [...] pacemaker check. 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 (Primary Dx); Bilateral leg edema; Presence of cardiac pacemaker 10/17/2024 Travel 08/18/2024 11:00 AM EDT Office Visit [facility] [address] [place] [address] Ayesha Galo APRN Dyspnea on exertion (Primary Dx); Bilateral leg edema; Acute diastolic CHF (congestive heart failure); 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 08/18/2024 Travel 08/15/2024 Telephone [facility] [address] [place] [address] Ayesha Galo [...] Description 01/25/2025 8:30 AM EST Office Visit [facility] [address] [place] [address] Ayesha Galo, RASHMI [address] [place] [address] [place] [address] Health Maintenance Due Date Last [...] 01/22/2015, 11/01/2013 Medical Devices Implanted Type Area Windows Security Analyst Device Identifier Shelf Expiration Date Model / [...] * ECG Scan (08/10/2024) Ayesha W Iraj DRUG PURCHASER ECG ORDERABLES Final Result * IMAGING SCANNED (08/10/2024) Anatomical Region Laterality Modality Radiographic Whit ging Ayesha W Seivers DRUG PURCHASER IMG DIAGNOSTIC IMAGING ORDER DEMETRIUS Final Result from Last 3 Months Insurance [place] [employer] Member Subscriber Plan / Payer (Ef fective 2023-Present) Name:Gina Stone Relation to Subscriber:Self Name:ChaseGina Payer ID:[id number] Group ID:Not on file Type:Not on file Address: [address] [facility]IC[facility] Care Teams Converting Supervisor Relationship Specialty Start Date End Date Jose Mendoza MD [address] [facility] [address] [place] [address] PCP - General Adolescent Medicine 08/03/22
--- OUTSIDE RECORDS SUMMARY | 2024-11-10 17:14 | XMS_ITS | Patient Health Record ---
Author Organization [facility] MAGAN Address [address] [place] [address] Care Team Providers Care Hot Dip Plating Supervisor Name Role Phone Jose Mendoza Primary Care Provider Telma Francois Unavailable [phone] Migration, Provider Unavailable Unavailable Allergies Allergen (clinical [...] date:11/10/2024 10:18:28 AM Interpretation: Performing Lab: Notes/Report: M-Complete Blood [...] Performing Lab: Notes/Report: TSH 0.45 0.465-4.68 uIU/mL CT Scan : Abdomen and Pelvis with and without contrast Reviewed date:12/08/2023 10:57:53 AM Interpretation: Performing Lab: Notes/Report: LYME DISEASE AB W/REFL IA (I GG,IGM) (91177) Reviewed date:10/16/2024 09:04:29 AM Interpretation: Performing Lab:GRICELDA [facility]Gemma [facility],[address] Bartolo Briscoe Lo[place]andFpwbfsirowDI[address] Angelica Armijo MD,PhD,LESLY Notes/Report: NON-FASTING; NON-FASTING; NON-FASTING; [...] spirochetal diseases (e.g., syphilis) or infectious mononucleosis. VITAMIN B12/FOLATE, SERUM SC ILANA (7065) Reviewed date:03/27/2024 10:28:09 AM Interpretation: Performing Lab:JOANN [facility]-Chun Yubx0700 [facility] [place] DoegKZ[address] Dewayne Tamayo Notes/Report: NON-FASTING; NON-FASTING; NON-FASTING; NON-FASTING; NON-FAST FASTING:NO FASTING: NO VITAMIN B12 662 014-0795 pg/mL Please Note: Although the reference range [...] Range Low: <3.4 Borderline: 3.4-5.4 Normal: >5.4 M-Cortisol Reviewed date:12/11/2023 09:45:44 AM Interpretation: Performing Lab: Notes/Report: FASTING TANK 10.5 6.2-19.4 ug/dL Please Note: The reference interval and flagging for this test is for an AM collection. If this is a PM collection please use: Cortisol PM: 2.3-11.9 Performed at: [address] [id number] Operation Research Analyst: Lopez Chauhan PhD, Phone: [phone] IRON, TIBC AND FERRITIN PANE L (5616) Reviewed date:03/27/2024 10:28:09 AM Interpretation: Performing Lab:JOANN Dweho, ThatgamecompanyPeoiVI[address] Dewayne Tamayo Notes/Report: NON-FASTING; NON-FASTING; NON-FASTING; NON-FASTING; NON-FAST FASTING:NO FASTING: NO IRON, TOTAL 26 45-160 mcg/dL IRON BINDING CAPACITY 348 250-450 mcg/dL (marielos c) % SATURATION 7 16-45 % (calc) FERRITIN 51 16-288 ng/mL IRON, TIBC AND FERRITIN PANE L (5616) Reviewed date:10/16/2024 09:04:29 AM Interpretation: Performing Lab:JOANN SAJE [employer], ThatgamecompanyDnjcZW[address] Dewayne Tamayo Notes/Report: NON-FASTING; NON-FASTING; NON-FASTING; NON-FASTING IRON, TOTAL 58 45-160 mcg/dL IRON BINDING CAPACITY 342 250-450 mcg/dL (marielos c) % SATURATION 17 16-45 % (calc) FERRITIN 36 16-288 ng/mL LIPID PANEL, STANDARD (7600) Reviewed date:03/09/2024 10:11:58 AM Interpretation: Performing Lab:JOANN Dweho, ThatgamecompanyGcaqZF[address] Dewayne Tamayo Notes/Report: NON-FASTING; NON-FASTING FASTING:NO FASTING: [...] LDL-C. Alonzo REYES et al. RITA. 2013;310(19): 3365-1187 (http://education.Mila.Nutricate/faq/UMH843) CHOL/HDLC RATIO 2.6 <5.0 (calc) NON HDL CHOLESTEROL 98 <130 mg/dL (calc) For patients with diabetes plus 1 major ASCVD risk factor, treating to a non-HDL-C goal of <100 mg/dL (LDL-C of <70 mg/dL) is considered a therapeutic option. COMPREHENSIVE METABOLIC PANE L (28137) Reviewed date:03/09/2024 10:11:59 AM Interpretation: Performing Lab:JOANN, [facility] Robertse1355 [facility], Chun RobertsTkanYQ[address] Dewayne Tamayo Notes/Report: NON-FASTING; NON-FASTING FASTING:NO FASTING: [...] 12 6-29 U/L COMPREHENSIVE METABOLIC PANE L (44522) Reviewed date:09/01/2024 03:05:17 PM Interpretation: Performing Lab:CB, [facility] Fhjp3073 [facility], [facility] CenterBrzpHL[address] Dewayne Tamayo Notes/Report: NON-FASTING; NON-FASTING; NON-FASTING GLUCOSE [...] 17 10-35 U/L ALT 10 6-29 U/L COMPREHENSIVE METABOLIC PANE L (48000) Reviewed date:10/16/2024 09:04:29 AM Interpretation: Performing Lab:JOANN [facility]ostics[facility] Hospitale1355 [facility]mindEast [facility], [facility] CenterWbrmEY[address] Dewayne Tamayo Notes/Report: NON-FASTING; NON-FASTING; NON-FASTING; NON-FASTING [...] 11 6-29 U/L COMPREHENSIVE METABOLIC PANE L (75813) Reviewed date:03/27/2024 10:28:09 AM Interpretation: Performing Lab:JOANN [employer] [employer], [facility] CenterSzijLU[address] Dewayne Tamayo Notes/Report: NON-FASTING; NON-FASTING; NON-FASTING; NON-FASTING; [...] 19 10-35 U/L ALT 12 6-29 U/L MAGNESIUM (622) Reviewed date:09/01/2024 03:05:17 PM Interpretation: Performing Lab:JOANN SAJE Pharmae1355 TalenthouseteJambo, [facility] CenterGbmoDY[address] Dewayne Tamayo Notes/Report: NON-FASTING; NON-FASTING; NON-FASTING MAGNESIUM 2.2 1.5-2.5 mg/dL CBC (INCLUDES DIFF/PLT) (639 9) Reviewed date:09/01/2024 03:05:17 PM Interpretation: Performing Lab:JOANN SAJE [facility]armae1355 [facility], [facility] CenterBgnlZM[address] Dewayne Tamayo Notes/Report: NON-FASTING; NON-FASTING; NON-FASTING WHITE [...] MPV 12.6 7.5-12.5 fL ABSOLUTE NEUTROPHILS 3127 4527-4152 cells/uL ABSOLUTE LYMPHOCYTES 2269 850-3900 cells/uL ABSOLUTE MONOCYTES 819 200-950 cells/uL ABSOLUTE EOSINOPHILS 247 15-500 cells/uL ABSOLUTE BASOPHILS 39 0-200 cells/uL NEUTROPHILS 48.1 LYMPHOCYTES 34.9 MONOCYTES 12.6 EOSINOPHILS 3.8 BASOPHILS 0.6 CBC (INCLUDES DIFF/PLT) (639 9) Reviewed date:10/16/2024 09:04:29 AM Interpretation: Performing Lab:CB, [facility] Elbn7205 [facility] Dewayne Tamayo Notes/Report: NON-FASTING; NON-FASTING; NON-FASTING; NON-FASTING [...] MPV 12.2 7.5-12.5 fL ABSOLUTE NEUTROPHILS 3585 8192-1364 cells/uL ABSOLUTE LYMPHOCYTES 2023 850-3900 cells/uL ABSOLUTE MONOCYTES 864 200-950 cells/uL ABSOLUTE EOSINOPHILS 201 15-500 cells/uL ABSOLUTE BASOPHILS 27 0-200 cells/uL NEUTROPHILS 53.5 LYMPHOCYTES 30.2 MONOCYTES 12.9 EOSINOPHILS 3.0 BASOPHILS 0.4 CBC (INCLUDES DIFF/PLT) (639 9) Reviewed date:03/27/2024 10:28:09 AM Interpretation: Performing Lab:JOANN, [facility]Chun Plif1706 [facility] Chun PotterObaxNI[address] Dewayne Tamayo Notes/Report: NON-FASTING; NON-FASTING; NON-FASTING; NON-FASTING; [...] MPV 12.6 7.5-12.5 fL ABSOLUTE NEUTROPHILS 3577 9581-4183 cells/uL ABSOLUTE LYMPHOCYTES 0735 900-0539 cells/uL ABSOLUTE MONOCYTES 794 200-950 cells/uL ABSOLUTE EOSINOPHILS 167 15-500 cells/uL ABSOLUTE BASOPHILS 31 0-200 cells/uL NEUTROPHILS 57.7 LYMPHOCYTES 26.3 MONOCYTES 12.8 EOSINOPHILS 2.7 BASOPHILS 0.5 RETICULOCYTE COUNT (793) Reviewed date:03/27/2024 10:28:09 AM Interpretation: Performing Lab:CB, [facility] [address], [facility] ServicesDiakVT[address] Dewayne Tamayo Notes/Report: NON-FASTING; NON-FASTING; NON-FASTING; NON-FASTING; NON-FAST FASTING:NO FASTING: NO RETICULOCYTE COUNT, AUTOMATED 4.9 RETICULOCYTE, ABSOLUTE [id number] [address]51-[address] cells/ uL Medications Medication SIG (Take, Route, Frequency, Duration) Notes Start Date End Date Status Multivitamin MULTIPLE VITAMINS 1 CAP(S) ORALLY ONCE A DAY *Please review and pick correct strength-formulati on from ARX options. If intended option is not shown, [...] Vaccine Route Administration Date Status Comme nts Fluzone High Dose IM Intramuscular 11/30/2023 Administered Influenza (Fluzone)--Medicare only IM Intramuscular 12/03/2014 Administered Pneumovax-23 (pneumococccal vaccine polyvalent)2 years or older IM Intramuscular 11/01/2013 Administered Influenza (Fluzone)--Medicare only IM Intramuscular 11/15/2015 Administered Fluzone High Dose IM Intramuscular 12/08/2022 Administered Fluzone High Dose IM Intramuscular 11/25/2021 Administered Fluzone High Dose IM Intramuscular 12/10/2020 Administered Fluzone High Dose IM Intramuscular 11/28/2019 Administered Fluzone High Dose IM Intramuscular 11/29/2018 Administered Fluzone High Dose IM Intramuscular 11/23/2017 Administered Fluzone High Dose IM Intramuscular 11/26/2016 Administered Fluvirin--Influenza vaccine 3+ year IM Intramuscular 11/24/2013 Administered Fluvirin--Influenza vaccine 3+ year IM Intramuscular 11/23/2012 Administered Covid Yokasta Unknown 12/26/2020 Administered Covid Yokasta Unknown 05/02/2020 Administered Adacel (Tdap) Unknown 04/23/2015 Administered Prevnar PCV-20 (Pneumococcal conjugate 20) IM Intramuscular 08/26/2021 Administered Prevnar PCV-13 (Pneumococcal conjugate 13) IM Intramuscular 01/22/2015 Administered Problems Problem Type SNOMED Code ICD Code Onset Dates Problem Status W/U Status Risk Notes Problem Chronic pain syndrome (766304146) Chronic pain syndrome (G89.4) Active confirmed Problem Overactive bladder (313105152) Overactive bladder (N32.81) Active confirmed Problem Urge incontinence of urine (82797358) Urge incontinence (N39.41) Active confirmed Problem Hypertension (71986095) HTN (hypertension) (I10) Active confirmed Problem Vitamin D deficiency (78892723) Vitamin D deficiency (E55.9) Active confirmed Problem Osteoporosis (28642825) Osteoporosis (M81.0) Active confirmed Problem Hyperlipidemia (12505784) Hyperlipemia, idiopathic familial (E78.5) Active confirmed Problem Mild cognitive impairment (440143967) Mild cognitive impairment (G31.84) Active confirmed Problem Gastroesophageal reflux disease (535716578) GERD without esophagitis (K21.9) Active confirmed Problem Lymphedema (55418367) Lymphedema (I89.0) Active confirmed Problem Body mass index 30.00 to 34.99 (211890816391005) BMI 34.0-34.9,adult (Z68.34) Active confirmed Problem Chronic pain (51365031) Other chronic pain (G89.29) Active confirmed Problem Cardiac pacemaker in situ (067897998) Status cardiac pacemaker (Z95.0) Active confirmed Problem Atherosclerosis of coronary artery without angina pectoris (574570916574497) Atherosclerosis of [place] coronary artery of [place] heart without angina pectoris (I25.10) Active confirmed Problem Memory loss (31139262) Memory loss (R41.3) Active confirmed Problem Primary osteoarthritis (817935937) Primary osteoarthritis involving multiple joints (M15.0) Active confirmed Problem Urge incontinence of urine (01384596) Urinary incontinence, urge (N39.41) Active confirmed Problem Sacroiliitis (59546091) Sacroiliitis (M46.1) Active confirmed Problem Iron deficiency anemia (43890726) Iron deficiency anemia, unspecified iron deficiency anemia type (D50.9) Active confirmed Problem Obese class II (791246043596336) BMI 35.0-35.9,adult (Z68.35) Active confirmed Problem Chronic diastolic heart failure (687816227) Diastolic CHF, chronic (I50.32) Active confirmed Problem Chronic anemia (163869665) Chronic anemia (D64.9) Active confirmed Problem Primary adenocarcinoma of colon (0245905664101) Adenocarcinoma, colon (C18.9) Active confirmed Problem Arthritis of knee (905950001) Arthritis of knee (M17.10) Active confirmed Problem Gastroesophageal reflux disease with esophagitis (disorder) (880135636) Gastroesophageal reflux disease with esophagitis without hemorrhage (K21.00) Active confirmed Problem Adrenal mass (191565533) 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) Active confirmed Vital Signs Heart Rate 74 /min 11/06/2024 Temperature 98 degrees Fahrenheit 11/06/2024 Oximetry 99 11/06/2024 Blood pressure diastolic 72 mm Hg 11/06/2024 Height 5 ft 3 in in 11/06/2024 Blood pressure systolic 124 mm Hg 11/06/2024 Weight 0 lbs 11/06/2024 BMI 0 kg/m2 11/06/2024 Encounters Encounter Location Date Provider Diagnosis [facility] MAG[facility] [address] [place], [place] [address] 05/27/2024 Provider Migration Chronic pain syndrome G89.4 and Bronchitis J40 formerly [facility] [address] [address] 11/30/2023 Jose Mendoza Primary osteoarthrit is involving multiple joints M15.0 ; Chronic pain syndrome G89.4 ; Atherosclerosis of [place] coronary artery of [place] heart without angina pectoris I25.10 ; HTN (hypertension) I10 ; Lymphedema I89.0 ; Routine medical exam Z00.00 and Immunization(s) administered Z23 formerly [facility] [address] [address] 01/04/2024 Jose Mendoza Acute bronchopneumon ia J18.0 ; Diastolic CHF, chronic I50.32 and Hospital discharge follow-up Z09 formerly [facility] [address] [address] 03/07/2024 Jose Mendoza Primary osteoarthrit is involving multiple joints M15.0 ; HTN (hypertension) I10 ; Hyperlipemia, idiopathic familial E78.5 ; Lymphedema I89.0 ; Dyspnea on exertion R06.09 ; Overactive bladder N32.81 and Routine medical exam Z00.00 formerly [facility] [address] [address] 03/23/2024 Jose Mendoza Chronic anemia D64.9 ; Dyspnea on effort R06.09 and Arthritis of knee M17.[address] [address] 05/05/2024 Telma McNees Bronchitis J40 [address] [address] 06/13/2024 Jose Mendoza Adenocarcinoma, colo n C18.9 ; Atherosclerosis of [place] coronary artery of [place] heart without angina pectoris I25.10 ; Iron deficiency anemia, unspecified iron deficiency anemia type D50.9 ; Diastolic CHF, chronic I50.32 and Chronic pain syndrome G89.4 [facility] [address] [address] 07/20/2024 Jose Mendoza Diastolic CHF, chron ic I50.32 ; S/P right colectomy Z90.49 ; Adenocarcinoma, colon C18.9 and Hospital discharge follow-up Z09 formerly [facility] [address] [address] 08/17/2024 Jose Mendoza Left heart failure w ith preserved LV function I50.30 and Hospital discharge follow-up Z09 formerly [facility] [address] [address] 08/31/2024 Jose Mendoza Diastolic CHF, chron ic I50.32 and Iron deficiency anemia, unspecified iron deficiency anemia type D50.9 formerly [facility] [address] [address] 10/10/2024 Jose Mendoza Iron deficiency anem ia, unspecified iron deficiency anemia type D50.9 ; Hyperlipemia, idiopathic familial E78.5 ; Adenocarcinoma, colon C18.9 ; Diastolic CHF, chronic I50.32 ; Insect bite (nonvenomous), left thigh, initial encounter S70.362A and Bitten or stung by nonvenomous insect and other nonvenomous arthropods, initial encounter W57.XXXA formerly [facility] [address] [address] 10/30/2024 Telma Priscila Bronchopneumonia J18 .0 [facility] [address] [address] 11/06/2024 Telma Priscila Shortness of breath R06.02 and Abdominal distension R14.0 formerly [facility] [address] [address] 11/15/2023 Jose Mendoza Chronic pain syndrom e G89.4 [facility] MAG[facility] [address] [place] [address] 11/15/2023 Telma Priscila Adrenal mass E27.8 [facility] [address] [place] [address] 12/01/2023 Jose Mendoza Lymphedema I89.0 [facility] [address] [place] [address] 12/08/2023 Jose Mendoza Fatigue, unspecified type R53.83 [facility] [address] [place] [address] 12/09/2023 Jose Besson [facility] [address] [place] [address] 12/16/2023 Jose Reji Chronic pain syndrom e G89.4 [facility] [address] [place] [address] 12/17/2023 Jose Reji [facility] [address] [place] [address] 01/03/2024 Jose Tieshason [facility] [address] [place] [address] 01/14/2024 Jose Mendoza Chronic pain syndrom e G89.4 [facility] [address] [place] [address] 02/14/2024 Jose Reji Chronic pain syndrom e G89.4 [facility] [address] [place] [address] 03/13/2024 Jose Tieshason Chronic pain syndrom e G89.4 [facility] [address] [place] [address] 03/20/2024 Jose Reji Peripheral edema R60 .0 [facility] [address] [place] [address] 04/14/2024 Jose Tieshason Chronic pain syndrom e G89.4 [facility] [address] [place] [address] 04/24/2024 Jose Tieshason Peripheral edema R60 .0 [facility] [address] [place] [address] 04/25/2024 Jose Besson [facility] [address] [place] [address] 05/11/2024 Jose Tieshason Chronic pain syndrom e G89.4 [facility] [address] [place] [address] 06/12/2024 Jose Besson Chronic pain syndrom e G89.4 [facility] [address] [place] [address] 07/10/2024 Jose Besson Chronic pain syndrom e G89.4 [facility] [address] [facility] [address] [place] [address] 07/19/2024 Jose Besson [facility] [address] [place] [address] 07/19/2024 Jose Besson [facility] [address] [place] [address] 08/11/2024 Jose Besson Chronic pain syndrom e G89.4 [facility] [address] [facility] [address] [place] [address] 09/07/2024 Jose Besson Chronic pain syndrom e G89.4 [facility] [address] [place] [address] 10/05/2024 Jose Besson Chronic pain syndrom e G89.4 [facility] [address] [place] [address] 11/06/2024 Jose Besson Chronic pain syndrom e G89.4 [facility] [address] [facility] [address] [place], [place] [address] 11/06/2024 Telma Francois Assessments Encounter Date Diagnosis (ICD Code) Assessment Notes Treatment Notes Treatment Clinical Notes Section Notes 06/13/2024 Adenocarcinoma, colon (ICD-10 - C18.9) Reviewed colonoscopy results with patient. Workup is in progress, will follow along with patient. 07/10/2024 Chronic pain syndrome (ICD-10 - G89.4) 07/20/2024 Diastolic CHF, chronic (ICD-10 - I50.32) -RA, comfortable, volume status stable, cont current regimen. 06/13/2024 Atherosclerosis of [place] coronary artery of [place] heart without angina pectoris (ICD-10 - I25.10) Currently stable from heart disease perspective, continues to follow with [facility].Will represent a high risk patient if [...] 09/07/2024 Chronic pain syndrome (ICD-10 - G89.4) 10/30/2024 [...] 11/06/2024 Chronic pain syndrome (ICD-10 - G89.4) 04/24/2024 Peripheral edema (ICD-10 - R60.0) 12/16/2023 Chronic pain syndrome (ICD-10 - G89.4) 10/10/2024 Hyperlipemia, idiopathic familial (ICD-10 - E78.5) 10/10/2024 Iron deficiency anemia, unspecified iron deficiency anemia type (ICD-10 - D50.9) History of anemia, will track labs today to see if this is causing her problems with fatigue 11/15/2023 Chronic pain syndrome (ICD-10 - G89.4) [...] 12/08/2023 Fatigue, unspecified type (ICD-10 - R53.83) 01/04/2024 Acute bronchopneumonia (ICD-10 - J18.0) Seems [...] 02/14/2024 Chronic pain syndrome (ICD-10 - G89.4) 03/13/2024 Chronic pain syndrome (ICD-10 - G89.4) [...] 04/14/2024 Chronic pain syndrome (ICD-10 - G89.4) 05/11/2024 Chronic pain syndrome (ICD-10 - G89.4) 05/27/2024 Chronic pain syndrome (ICD-10 - G89.4) 05/27/2024 Bronchitis (ICD-10 - J40) 06/12/2024 Chronic pain syndrome (ICD-10 - G89.4) 03/07/2024 [...] 7.5 mg Q6H PRN. CSA signed today. 10/05/2024 Chronic pain syndrome (ICD-10 - G89.4) 05/05/2024 Bronchitis (ICD-10 - J40) Discussed the etiology and expected course of bronchitis. Discussed the rationale for antibiotics and steroid use and the importance of completing the prescription as prescribed. Discussed supportive care. Discussed the signs and symptoms of worsening infection/respirat ory distress that may indicate need for reassessment in clinic/ED. 03/07/2024 Hyperlipemia, idiopathic familial (ICD-10 - E78.5) Chronic, stable. Lipid panel pending today. 03/23/2024 Arthritis of knee (ICD-10 - M17.10) Continue pain management, with medications for me as well as pain clinic visits. Knee injection done as noted above, hopefully this will give her some relief 01/04/2024 Hospital discharge follow-up (ICD-10 - Z09) Reviewed ER records, reconciled medications, she will finish of antibiotics this week 06/13/2024 Iron deficiency anemia, unspecified iron deficiency anemia type (ICD-10 - D50.9) Will follow-up in 2 months with blood counts at that point 11/30/2023 Atherosclerosis of [place] coronary artery of [place] heart without angina pectoris (ICD-10 - I25.10) Overall no evidence of angina. Has had extensive workup with cardiology will follow along 07/20/2024 Adenocarcinoma, colon (ICD-10 - C18.9) -s/p resection as above 10/10/2024 Adenocarcinoma, colon (ICD-10 - C18.9) Follows with [facility] oncology 06/13/2024 Diastolic CHF, chronic (ICD-10 - I50.32) [...] mobility device. Will initiate referral for this 11/30/2023 HTN (hypertension) (ICD-10 - I10) Good blood pressure control. No changes in plan 03/07/2024 Lymphedema (ICD-10 - I89.0) Chronic, improved. Improvement with lymphedema PT. 03/07/2024 Dyspnea on exertion (ICD-10 - R06.09) Chronic, stable. Follows with cardiology with extensive w/u completed. Continue daily lasix and K supplementation. Pulmonology and pulmonology rehab referral placed. 11/30/2023 Lymphedema (ICD-10 - I89.0) No evidence of fluid overload. Lymphedema trial 06/13/2024 Chronic pain syndrome (ICD-10 - G89.4) Patient has been compliant with our office and [place] regulations r.e. meds. No concerns on my part about diversion or misuse. Labs and Yuri reports reviewed and are appropriate. 10/10/2024 Insect bite (nonvenomous), left thigh, initial encounter (ICD-10 - S70.362A) Tick bite. Unclear time course, given her aches and pains will check Lyme titers. Cover with amoxicillin given her total symptom burden 10/10/2024 Bitten or stung by nonvenomous insect and other nonvenomous arthropods, initial encounter (ICD-10 - W57.XXXA) 11/30/2023 Routine medical exam (ICD-10 - Z00.00) [...] gemtesa 75 mg daily. Discussed lifestyle modifications. 03/07/2024 Routine medical exam (ICD-10 - Z00.00) [...] 02/27/2020 C-URINE CULTURE 11/11/2012 C-URINE CULTURE 11/23/2017 Pulmonary Function Test- Complete 2023 Physical Therapy : Lymphedema 12/01/2023 M-Complete Blood Count w/o Diff 10/13/19 24 M-BNP 10/13/2023 M-Vitamin D 25 Hydroxy 03/04/2021 M-Vitamin D 25 Hydroxy 03/05/2022 Next Appt Details Provider Name:Jose Mendoza, 12/14/2024 11:45:00 AM, [address], [address], Insurance Providers Payer Name Payer Address Payer Phone Subscriber Number Group Number Insured Name Patient Relationship to Insured Coverage Start Date Coverage End Date [facility] MEDICARE [address] [address] [place] [address] [phone] [id number] Gina Stone Self - patient is the insured MEDICAID EDS [address] [place] [address] [id number] Gina Stone Self - patient is the insured Medications Administered Medication Instructions Date of Administration Dosage Notes Dexamethasone 4mg Injection 10/30/2024 4 mg Dexamethasone 4mg Injection 05/05/2024 4 mg Dexamethasone 4mg Injection 12/17/2022 4 mg Kenalog 04/02/2016 1 mL Kenalog 01/09/2016 1 mL Kenalog 10/23/2014 1 mL Kenalog 07/24/2014 1 Triamcinolone Acetonide 40mg Injection 08/01/2019 1 mL Triamcinolone Acetonide 40mg Injection 02/23/2019 1 mL Kenalog 40mg 11/12/2016 40 mg Kenalog 40mg 06/23/2016 40 mg Medical (General) History Medical History History [...] Hospitalization History Reason Date(Month/Year) - Colon surgery [facility] - 07/24/2023 HTN 2013
[2024-11-10 17:15] VITALS: BP 148/78; PULSE 89; RESP 16; TEMP 36.6; O2SAT 94; BMI 41.8
[2024-11-10 17:26] VITALS: O2SAT 94
--- NOTE | 2024-11-10 17:58 | CT_ITS ---
PROCEDURE INFORMATION: Exam: CT Abdomen And Pelvis With Contrast Exam date and time: 11/10/2024 6:23 PM Age: 79 years old Clinical indication: Abdominal pain; Flank; Right; Additional info: Right flank pain TECHNIQUE: Imaging protocol: Computed tomography of the abdomen and pelvis with contrast. Radiation optimization: All CT scans at this facility use at least one of these dose optimization techniques: automated exposure control; mA and/or kV adjustment per patient size (includes targeted exams where dose is matched to clinical indication); or iterative reconstruction. Contrast material: ISOVUE; Contrast volume: 75 ml; Contrast route: IV; COMPARISON: CT ABDOMEN PELVIS WO/W CON 12/03/2023 9:42 AM FINDINGS: Tubes, catheters and devices: Atrioventricular pacemaker. Advanced coronary calcification involving the right coronary artery and circumflex artery. Calcification of the mitral valve annulus. Lungs: Mild atelectasis within the posterior lower lobes. No focal infiltrate identified. Small area of fissural thickening anterior right base that does not require follow-up. Liver: Normal. No mass. Gallbladder and biliary ducts: Small high attenuation gallstones layering within the body of the gallbladder. No gallbladder distension, wall thickening or surrounding fluid. Normal common duct. Pancreas: Mild pancreatic atrophy. Spleen: Normal-size spleen with calcified granulomata. Adrenal glands: 2.1 x 1.9 cm right adrenal mass that is not significantly changed from December 03, 2023 that demonstrated precontrast Hounsfield unit measurements of 6 on the comparison examination most consistent with an adenoma. Two small stable left adrenal nodules measuring in the 11 mm range. Kidneys and ureters: Normal-sized right kidney which demonstrates satisfactory enhancement. No hydronephrosis or ureteral stone appreciated. Small moderately atrophic left kidney measuring 8 cm in length with cortical thinning. There is enhancement of the left kidney. There is a low-attenuation 1 cm mass at the lateral cortex of the left kidney with Hounsfield unit measurements of less than 10 consistent with a cyst which does not require follow-up. Stomach and bowel: No distension of the stomach. Transverse duodenal diverticulum noted. No small bowel dilatation appreciated. Previous partial right hemicolectomy. There is a small bowel anastomosis with adjacent surgical clips at the hepatic flexure. The transverse and left colon are mainly stool-filled. There is advanced diverticulosis of the sigmoid colon with no acute diverticulitis appreciated. Appendix: The appendix is surgically absent. Intraperitoneal space: Unremarkable. No free air. No significant fluid collection. Vasculature: Advanced atherosclerotic plaquing abdominal aorta with no aneurysm appreciated. High-grade stenosis proximal superior mesenteric artery. There also appears to be a high-grade stenosis involving the distal superior mesenteric artery. Proximal right renal artery stenosis. High-grade stenosis involving the right proximal common iliac artery and moderately high-grade stenosis distal right common iliac artery. Lymph nodes: Unremarkable. No enlarged lymph nodes. Urinary bladder: Unremarkable as visualized. Reproductive: The uterus is absent. Neither ovary is visualized. Bones/joints: Old lateral right 8th rib fracture. No acute rib fracture appreciated. Mild old L1, L3 and L5 compression fractures. 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 Soft tissues: Unremarkable. IMPRESSION: 1. No acute intra-abdominal or intrapelvic abnormality appreciated. 2. Multiple small gallstones again demonstrated. No evidence of acute cholecystitis or biliary obstruction identified. 3. Bilateral adrenal masses/adenomas that appear essentially stable at 1 year. No follow-up required. 4. Multiple additional chronic findings discussed above.
--- NOTE | 2024-11-10 17:58 | XR_ITS ---
PROCEDURE INFORMATION: Exam: XR Chest Exam date and time: 11/10/2024 6:31 PM Age: 79 years old Clinical indication: Shortness of breath; Additional info: Short of breath TECHNIQUE: Imaging protocol: Radiologic exam of the chest. Views: 1 view. COMPARISON: CR XR CHEST 2V 11/06/2024 3:20 PM FINDINGS: Lungs: Unremarkable. No consolidation. Pleural spaces: Unremarkable. No pleural effusion. No pneumothorax. Heart/Mediastinum: Normal-sized cardiac silhouette. Atrioventricular pacemaker with a left-sided generator. Vasculature: Mild atherosclerotic plaquing aortic arch. Bones/joints: Unremarkable. IMPRESSION: No acute findings. No change from November 06, 2024 appreciated.
[2024-11-10 18:09] LABS: Albumin Level 4.2 g/dl (3.5-5.0); Chloride 101 mmol/L (98-107); Hematocrit 37.5 % (37.0-47.0); Hemoglobin 12.0 g/dL (12.2-16.2); Immature Granulocytes % 0.2 %; Mean Corpuscular HGB Conc 32.0 g/dL (31.8-35.4); Mean Corpuscular Hemoglobin 28.6 pg (27.0-31.2); Mean Corpuscular Volume 89.3 fl (81-99); Nucleated Red Blood Cells % 0 %; Platelet Count 219 K/mm3 (142-424); Potassium 4.6 mmoL/L (3.5-5.1); Red Blood Count 4.20 M/mm3 (4.20-5.40); Red Cell Distribution Width-SD 52.8 fL; Sodium 140 mmol/L (136-145); White Blood Count 8.1 K/mm3 (4.8-10.8)
--- NOTE | 2024-11-10 18:10 | ED_ITS ---
<Statement entered by Rogelio De Los Santos MD - 11/11/24 03:01> I was consulted by the SUELLEN, and we discussed the complexity of the problems being addressed. I approve the treatment and management plan for this patient's care in the emergency department, thus performing a substantive portion of the medical decision making. Rogelio De Los Santos MD Discharge Plan Disposition Patient Disposition: Home, Self-Care Prescriptions Prescriptions: No Action Complete Multivitamin tablet 1 tab PO DAILY aspirin [Adult Low Dose Aspirin] 81 mg tablet,delayed release (DR/EC) 81 mg PO DAILY calcium carbonate-vitamin D3 [Os-Brodie 500 + D3] 500 mg(1,250mg) -200 unit tablet 1 tab PO BID baclofen 10 mg tablet 10 mg PO TID alendronate 70 mg tablet 70 mg PO QWEEK pantoprazole 40 mg tablet,delayed release (DR/EC) 40 mg PO BID isosorbide mononitrate 60 mg tablet extended release 24 hr 60 mg PO DAILY pravastatin 80 mg tablet 80 mg PO DAILY lisinopril 40 mg tablet 40 mg PO DAILY spironolactone 25 mg tablet 12.5 mg PO DAILY hydrocodone-acetaminophen 7.5-325 mg tablet 1 tab PO DIRECTED Patient Comments: TAKE ONE TABLET BY MOUTH EVERY 6 HOURS MAY CAUSE DROWSINESS nebivolol 10 mg tablet 12.5 mg PO DIRECTED pregabalin [Lyrica] 75 mg capsule 75 mg PO BID Qty: 180 0RF Sutab 1.479-0.188- 0.225 gram tablet See Rx Instructions PO PER PKG DIR Qty: 24 0RF Rx Instructions: at 6pm the night before procedure, swallow 1 tablet every 1-2 minutes. you should finish 12 tablets and entire 16 oz of water within 20 minutes. IMPORTANT: If you experience pre-related symptoms ( nausea, bloating or cramping) pause and slow the rate of drinking additional water until symptoms diminish. approximately one hour after the last tablet, drink 16 oz of water over 30 mins. then repeat 4 hours before procedure time. ferrous sulfate 325 mg (65 mg iron) tablet 325 mg PO BID 30 Days Qty: 60 0RF furosemide [Lasix] 40 mg tablet 40 mg PO DAILY Qty: 7 0RF pregabalin [Lyrica] 75 MG capsule 75 mg PO BID Referrals Follow up/Referrals: Lele Adams MD [Staff Physician, General Surgery] - See instructions Jose Mendoza MD [Primary Care Provider, Internal Medicine] - See instructions Rafael Cruz MD [Staff Physician, General Surgery] - See instructions Activity Restrictions/Add. Instructions Additional Instructions/Restrictions: Please call surgeon on Wednesday for appointment to get gallbladder removed. Please follow-up with Dr. Mendoza as well. Any other problems or concerns please return to the ED Clinical Impressions Clinical Impression: Gallstones, Abdominal pain Instructions Patient Instructions: Anatomy of a Gallstone, DI for Gallstones Print Language Print Language: [place] Discharge ED Provider: Rogelio De Los Santos General Chief Complaint: Shortness of Breath/Dyspnea Stated Complaint: soa Time Seen by Provider: 11/10/24 17:38 Mode of Arrival: Ambulatory Source of Information: Patient Description of Symptoms (Recalled from ER Triage Doc. by RN): pt presents to the ED with shortness of breath x2 years. pt reports that over the past 2 weeks her shortness of breath has got worse. Pt states that she was seen by her PCP for the shortness of breath and was told it was from her gallbladder. pt had an ultrasound of her gallbladder yesterday. pt states that she had a surgery in May to remove cancer from her colon. Denies chest pain. History of Present Illness HPI narrative: 79-year-old female presents to the ED with complaint of shortness of breath. She states that she had an ultrasound that showed gallstones. She states that it did show some inflammation as well. She has some right upper quadrant tenderness but no nausea or vomiting. She does complain of shortness of breath with a small cough but no fever. She says that her shortness of breath is all the time. She denies any chest pain. She does have history of colon cancer. Related Data Home Medications ?Medication ?Instructions ?Recorded ?Confirmed alendronate 70 mg tablet 70 mg PO QWEEK Bone loss 03/1111/06/24 aspirin 81 mg tablet,delayed 81 mg PO DAILY heart heal th 12/23/17 11/06/24 release (Adult Low Dose Aspirin) baclofen 10 mg tablet 10 mg PO TID muscle spasms 1 02/22/17 11/06/24 calcium 500 mg (as 1 tab PO BID suppliment 03/1111/06/24 carbonate)-vitamin D3 5 mcg (200 unit) tablet (Os-Brodie 500 + D3) isosorbide mononitrate 60 mg 60 mg PO DAILY Chest pain 12/23/17 11/06/24 tablet,extended release 24 hr lisinopril 40 mg tablet 40 mg PO DAILY High blood pr essure 12/23/17 11/06/24 multivitamin,[id number] 1 tab PO DAILY SUPPLIMEN T 12/23/17 11/06/24 (Complete Multivitamin tablet) pantoprazole 40 mg tablet,delayed 40 mg PO BID GERD 11/06/24 release pravastatin 80 mg tablet 80 mg PO DAILY Cholesterol 1 02/22/17 11/06/24 spironolactone 25 mg tablet 12.5 mg PO DAILY fluid ret ention 12/23/17 11/06/24 hydrocodone 7.5 mg-acetaminophen 1 tab PO DIRECTED 10/19/23 11/06/24 325 mg tablet nebivolol 10 mg tablet 12.5 mg PO DIRECTED 11/2211/06/24 pregabalin 75 mg capsule (Lyrica) 75 mg PO BID Pain 11/06/24 Previous Rx's ?Medication ?Instructions ?Recorded ferrous sulfate 325 mg (65 mg 325 mg PO BID 30 days #6 0 tabs 07/24/23 iron) tablet furosemide 40 mg tablet (Lasix) 40 mg PO DAILY #7 tabs 12/31/23 sodium sul 1.479 gram-potas ch See Rx Instructions PO PER PKG DIR 05/25/24 0.188 gram-magnes sul 0.225 gram colonscopy #24 tabs tablet (Sutab) pregabalin 75 mg capsule (Lyrica) 75 mg PO BID #180 ca ps 11/06/24 Allergies Allergy/AdvReac Type Severity Reaction Status Date / Time diltiazem (DILTIAZEM) Allergy Intermediate HEART Verified 11/06/24 11:23 RACING pheniramine (From Theraflu Allergy LIGHT Verified 11/06/24 11:23 Sinus and Cold) HEADED phenylephrine (From Theraflu Allergy LIGHT Verified 11/06/24 11:23 Sinus and Cold) HEADED [facility] Disclaimer: The information contained in this section may have been updated after the patient was seen, as this information can be updated by other users. Medical History (Updated 11/10/24 @ 21:30 by Mirian Amaro (ED), SHOWPLACE MANAGER) Colon cancer History of COVID-19 Edema Fluid retention CHF (congestive heart failure) GERD (gastroesophageal reflux disease) Neuropathy Chronic pain Anemia Bone spur of left foot [place] History of left heart catheterization (LHC) Cataract History of pacemaker History of pacemaker Hypertension Hyperlipidemia Surgical History History of colon resection History of surgery History of hip surgery History of shoulder surgery History of hysterectomy Family History Other Cancer Hypertension Social History Smoking Status: Never smoker alcohol intake: never substance use type: denies use current occupational status: retired Travel in the last 8 weeks?: None household members: spouse housing: house current occupational exposures/hazards: No caffeine: Yes Have you lived/traveled outside [place] in past 30 days?: No Contact w/someone who lives/traveled outside US past 30 days?: No Exposure to someone with infectious disease in past 14 days?: No Do you have a fever (greater than 100.4 F or 38 C)?: No Have you tested positive for COVID-19?: No Exposed to someone with COVID-19 in past 14 days?: No Do you have a sore throat?: No Do you have a cough?: No Do you have any weakness?: No Do you have any diarrhea?: No Are you experiencing any unusual bleeding?: No Do you have any muscle aches/pain?: No Do you have any abdominal pain?: No Are you experiencing loss of taste or smell?: No Other Medical History Have you received the Flu Vaccine for this season: Yes Have you received the Pneumonia Vaccine: Yes ROS Obtained: Yes Systems reviewed as appropriate & no additional complaints except as documented Constitutional Constitutional: Reports as per HPI Physical Exam General General appearance: alert Head Head exam: normocephalic Eye Eye exam: Present normal appearance, PERRL and EOMI ENT ENT exam: Present normal oropharynx and mucous membranes moist Neck Neck exam: Present full ROM and trachea midline Chest Chest inspection: Present normal inspection Respiratory Respiratory exam: Present normal lung sounds bilaterally Cardiovascular Cardiovascular exam: Present regular rate, normal rhythm, normal heart sounds, +S1 and +S2 Abdominal Exam Abdominal exam: Present soft and normal bowel sounds Extremities Exam Extremities exam: Present normal inspection and full ROM Neurological Exam Neurological exam: Present alert and oriented X3 Skin Skin exam: Present warm, dry and intact HEART Score HEART Score HEART Score assessment performed?: Yes History (anamnesis): Slightly suspicious ECG: Normal Age: >65 years Risk factors: 1-2 risk factors Troponin: </= normal limit HEART Score: 3 Critical Care Critical Care Time Critical Care Time: No Medical Decision Making Yuri Inquiry Pt receiving controlled substance: No Yuri was queried for this patient: No Vital Signs Vital Signs: 11/10/24 17:15 11/10/24 17:15 11/10/24 17:26 Temperature 97.9 F 97.9 F Temperature Source Oral Oral Pulse Rate 89 Pulse Rate [Right] 89 Respiratory Rate 16 16 Blood Pressure 148/78 H Blood Pressure [Right Arm] 148/78 H Blood Pressure Mean [Right Arm] 101 Blood Pressure Source Automatic Cuff Blood Pressure Source [Right Arm] Automatic Cuff Blood Pressure Position Supine Blood Pressure Position [Right Arm] Supine 02 Sat by Pulse Oximetry 94 L 94 L 94 L Oxygen Delivery Method Room Air Room Air Room Air 11/10/24 19:00 11/10/24 19:30 11/10/24 21:35 Temperature 98.1 F Temperature Source Pulse Rate 64 62 55 L Pulse Rate [Right] Respiratory Rate 16 Blood Pressure 119/60 125/72 109/88 L Blood Pressure [Right Arm] Blood Pressure Mean [Right Arm] Blood Pressure Source Blood Pressure Source [Right Arm] Blood Pressure Position Blood Pressure Position [Right Arm] 02 Sat by Pulse Oximetry 96 96 Oxygen Delivery Method Room Air Lab Data Labs: Lab Results 11/10/24 17:29: WBC 8.1, RBC 4.20, Hgb 12.0 L, Hct 37.5, MCV 89.3, MCH 28.6, MCHC 32.0, RDW 16.0, Plt Count 219, MPV 12.2 H, Neut % (Auto) 54.0, Lymph % (Auto) 29.5, [place] % (Auto) 13.2 H, Eos % (Auto) 2.7, Baso % (Auto) 0.4, Neut # (Auto) 4.4, Lymph # (Auto) 2.4, [place] # (Auto) 1.1 H, Eos # (Auto) 0.2, Baso # (Auto) 0.0, D-Dimer 0.47, Sodium 140, Potassium 4.6, Chloride 101, Carbon Dioxide 30, Anion Gap 13.6, BUN 24 H, Creatinine 1.40 H, Estimated Creat Clear 26, Estimated GFR 36 L, Est GFR ( Amer) 44 L, Glucose 97, Calcium 9.4, Magnesium 2.0, Total Bilirubin 0.5, AST 31, ALT 16, Alkaline Phosphatase 96, Troponin I < 0.01, NT-Pro-B Natriuret Pep 471 H, Total Protein 7.3, Albumin 4.2, Globulin 3.1, Albumin/Globulin Ratio 1.4, Lipase 40, HCV Ab ANDREA w/Rflx PCR Qn Negative, HIV Ag/Ab Combo Qual Negative 11/10/24 17:29 11/10/24 17:29 Response Orders (Tests/Meds): ED MEDICATIONS Discontinued Medications Generic Name Dose Route Start Last Admin Trade Name Freq PRN Reason Stop Dose Admin Acetaminophen 1,000 mg 11/10/24 17:58 11/10/24 18:48 Acetaminophen 1,000mg/100ml Vial IV 11/10/24 17:59 1,000 mg ONCE ONE Administration Famotidine 20 mg 11/10/24 17:58 11/10/24 18:48 Famotidine 20mg/2ml Vial IV 11/10/24 17:59 20 mg ONCE ONE Administration Iopamidol 75 ml 11/10/24 18:30 11/10/24 18:31 Iopamidol-370 (76%);100ml Bottle IV 11/10/24 18:31 75 ml ONCE ONE Administration Ondansetron HCl 4 mg 11/10/24 17:58 11/10/24 18:48 Ondansetron 4mg/2ml Vial IV 11/10/24 17:59 4 mg ONCE ONE Administration Sodium Chloride 8 ml 11/10/24 17:58 Sodium Chloride 0.9% 10ml Vial IV 12/10/24 17:57 NEEDED PRN dilute pepcid Sodium Chloride 10 ml 11/10/24 18:30 11/10/24 18:31 Sodium Chloride 0.9% 10ml Syr (Rad Only) IV 12/10/24 18:29 10 ml NEEDED PRN Administration Maintain IV Site ORDERS Category Date Time Status CT abdomen pelvis w con Stat Cat Scan 11/10/24 17:58 Completed Chest XR -- portable [XR chest portable] Stat Exams 11/10/24 17:58 Completed BNP [NT Pro Brain Natriuretic Pep.] Stat Lab 11/10/24 17:29 Completed CBC [Complete Blood Count Auto Diff] Stat Lab 11/10/24 17:29 Completed Comprehensive Metabolic Panel Stat Lab 11/10/24 17:29 Completed D-Dimer Stat Lab 11/10/24 17:29 Completed HIV Combo Stat Lab 11/10/24 17:29 Completed Hepatitis C Ab Qual. W/ RFX Stat Lab 11/10/24 17:29 Completed Lipase Stat Lab 11/10/24 17:29 Completed Magnesium Stat Lab 11/10/24 17:29 Completed Trop I [Troponin I] Stat Lab 11/10/24 17:29 Completed MDM Narrative Medical Decision Narrative: patient is a 79-year-old female presenting to the emergency department for evaluation of right upper quadrant pain and shortness of breath. Patient is hemodynamically stable and nontoxic-appearing upon arrival, afebrile. Differential diagnosis includes cholecystitis, ACS, COPD, among others. Workup will be conducted with hematologic labs, specific imaging. Initial inventions include crystalloid bolus, analgesics. Initial workup reviewed by me hematologic labs are remarkable for normal white count. BUN and creatinine were slightly elevated. Other labs were nonactionable for today. CT scan showed gallstones. See the radiology report for full report. Patient feels better and would like to go home. I discussed calling surgery on Wednesday for an appointment for her gallbladder to be removed. Patient is safe for discharge home.
[2024-11-10 18:11] LABS: Blood Urea Nitrogen 24 mg/dl (7-17); Creatinine Clearance Estimated 26 mL/min (50-200); Creatinine,Serum 1.40 mg/dl (0.52-1.04); Estimated Glomerular Filt Rate 36 ml/min (>60); GFR (African American) 44 ML/MIN (>60)
[2024-11-10 18:12] LABS: Alanine Aminotransferase 16 U/L (12-78); Albumin/Globulin Ratio 1.4 (1.1-1.8); Alkaline Phosphatase 96 U/L (38-126); Anion Gap 13.6 mEq/L (5-15); Aspartate Amino Transferase 31 U/L (14-36); Bilirubin,Total 0.5 mg/dl (0.2-1.3); Calcium 9.4 mg/dl (8.4-10.2); Carbon Dioxide 30 mmol/L (22.0-30.0); Globulin 3.1 g/dL (1.3-3.2); Glucose 97 mg/dl (74-100); Lipase 40 U/L (23-300); Magnesium 2.0 mg/dl (1.6-2.3); Total Protein,Serum 7.3 g/dl (6.3-8.2)
[2024-11-10] MEDS: IOPAMIDOL-370 (76%);100ML BOTTLE 75 ML IV (18:31)
[2024-11-10] MEDS: SODIUM CHLORIDE 0.9% 10ML SYR (RAD ONLY) 10 ML IV (18:31)
[2024-11-10 18:32] LABS: Troponin I < 0.01 ng/ml (0.00-0.034)
[2024-11-10] MEDS: ONDANSETRON 4MG/2ML VIAL 4 MG IV (18:48)
[2024-11-10] MEDS: ACETAMINOPHEN 1,000MG/100ML VIAL 1000 MG IV (18:48)
[2024-11-10] MEDS: FAMOTIDINE 20MG/2ML VIAL 20 MG IV (18:48)
[2024-11-10 18:56] LABS: Hepatitis C Ab Qual. W/ RFX NEGATIVE (Negative)
[2024-11-10 19:00] VITALS: BP 119/60; PULSE 64; O2SAT 96
[2024-11-10 19:16] LABS: D-Dimer 0.47 ug/mL (0.0-0.5)
[2024-11-10 19:22] LABS: NT Pro Brain Natriuretic Pep. 471 pg/mL (0-450)
[2024-11-10 19:30] VITALS: BP 125/72; PULSE 62; O2SAT 96
[2024-11-10 21:35] VITALS: BP 109/88; PULSE 55; RESP 16; TEMP 36.7; O2SAT 96
== END 2024-11-10 21:49 | disposition home or self-care (01) ==
PROVIDERS: Nurse Practitioner; Emergency Provider Student in an Organized Health Care Education/Training Program; PCP Internal Medicine Adolescent Medicine
DX: R06.02 Shortness of breath (principal); R10.11 Right upper quadrant pain; K80.20 Calculus of gallbladder without cholecystitis without obstruction; I11.0 Hypertensive heart disease with heart failure; I50.9 Heart failure, unspecified; Z95.0 Presence of cardiac pacemaker; K21.9 Gastro-esophageal reflux disease without esophagitis; E78.5 Hyperlipidemia, unspecified
CPT/HCPCS: 71045; 74177; 80053; 83690; 83735; 83880; 84484; 85025; 85378; 86803; 87389; 93005; 96374; 96375; 99285; J0131; J2405; Q9967

== ENCOUNTER 2024-12-18 12:39 | Outpatient (CLI) | payer MEDICARE, MEDICAID, SELFPAY ==
--- OUTSIDE RECORDS SUMMARY | 2024-05-27 17:30 | XMS_ITS ---
Author Organization [facility] D MAGAN Address [address] [place] [address] Care Team Providers Care Boxing Instructor Name Role Phone Jose Mendoza Primary Care Provider Migration, Provider Unavailable Unavailable Allergies Allergen (clinical drug ingredient) Drug/Non Drug Allergy documented on EMR Reaction Allergy Type Onset Date Status oseltamivir Tamiflu dizziness Drug Allergy Activ e REASON FOR VISIT [facility] To [facility] Conversion Encounter Medications Medication SIG (Take, Route, [...] Active Encounters Encounter Location Date Provider Diagnosis [facility]ED [facility] [address] [facility] [address] [place] [address] 05/27/2024 Provider Migration Chronic pain syndrome G89.4 [...] Details Provider Name:Jose Mendoza, 02/27/2025 10:00:00 AM, [address] [place] [address], [phone], Progress Notes * Jorge TIMeDOB:1945 (79 yo F)Acc No.[id number]:05/27/2024 Patient: Gina MARTINEZ Provider: Rain Araujo :1945 A ge:79 Y S ex:Female Date:05/27/2024 Address:[address] [place], [place] [phone] Pcp:Jose Mendoza Subjective: * Chief Complaints: * [...] *Please review and pick [facility]. If intended option is not [...] Electronic signature of Prov ider Migration on 12/18/2024 at 12:49 PM EDT Sign off status: Pending * Provider: Rain small Migration Date: 0 05/27/2024 Generated for Maico mullen/Valentin/Jessica on: 1 12:49 PM EDT
--- OUTSIDE RECORDS SUMMARY | 2024-08-17 07:45 | XMS_ITS ---
Author Organization [facility] Address [address] [place] [address] Care Team Providers Care Structural Steel Erection Supervisor Name Role Phone Jose Mendoza Primary Care Provider REASON FOR VISIT er fu Encounters Encounter Location Date Provider Diagnosis [facility] [address] [address] 08/17/2024 Jose Mendoza Plan Of Treatment Next Appt Details Provider Name:Jose Mendoza, 02/27/2025 10:00:00 AM, [address] [place] [address], [phone], Progress Notes * Jorge TIMeDOB:1945 (79 yo F)Acc No.[id number]:08/17/2024 Progress Notes Patient: Gina MARTINEZ Provider: Abdelrahman Mendoza MD :1945 A ge:79 Y S ex:Female Date:08/17/2024 Address:[address] [phone] Subjective: * Chief Complaints: * 1 . Er fu. * Medical History: Objective: * Vitals: Assessment: Plan: * Treatment: * * Electronic signature of Junaid Mendoza MD FAAP on 12/18/2024 at 12:48 PM EDT Sign off status: Pending * Provider: Abdelrahman Mendoza MD Date: 0 08/17/2024 Generated for Maico mullen/Valentin/Mahoganyitting on: 1 12:48 PM EDT
--- OUTSIDE RECORDS SUMMARY | 2024-10-30 06:15 | XMS_ITS ---
Author Organization [facility] Address [address] [place] [address] [place] [address] Care Team Providers Care Wire Insulator Name Role Phone Jose Mendoza Primary Care Provider Telma Francois Unavailable [phone] Allergies Allergen (clinical drug ingredient) Drug/Non Drug Allergy documented on EMR Reaction Allergy Type Onset Date Status oseltamivir Tamiflu dizziness Drug Allergy Activ e REASON FOR VISIT coughing up yellowish mucus , S.O.A , runny nose Medications Medication SIG (Take, Route, Frequency, Duration) Notes Start Date End Date Status Lisinopril 20 MG TAKE 1 TABLET EVERY DAY; Duration: 90 Active Pravastatin Sodium 80 MG TAKE 1 TABLET EVERY DAY; Duration: 90 Active Xarelto 20 MG TAKE 1 TABLET ONE TIME DAILY IN THE EVENING; Duration: 90 Active Amoxicillin-Pot Clavulanate 875-125 MG 1 tablet Orally every 12 hrs; Duration: 7 days 10/30/2024 Active Isosorbide Mononitrate ER 60 MG TAKE 1 TABLET EVERY MORNING; Duration: 90 Active Pantoprazole Sodium 40 MG TAKE 1 TABLET TWICE DAILY; Duration: 90 Active Furosemide 40 MG 1 tab(s) orally once a day; Duration: 90 days 04/25/2024 Active HYDROcodone-Acetaminop hen 7.5-325 MG 1 tab(s) orally every 6 hours; Duration: 30 days 10/05/2024 Active Spironolactone 50 MG 1 tablet Orally twice a day; Duration: 30 days 08/17/2024 Active Gemtesa 75 MG TAKE 1 TABLET EVERY DAY; Duration: 90 Active FeroSul 325 (65 Fe) MG TAKE 1 TABLET TWICE DAILY; Duration: 90 Active Triamcinolone Acetonide 0.5 % 1 emigdio applied topically 2 times a day; Duration: 7 days 09/16/2023 Active Fluticasone Propionate 50 MCG/ACT 1 spray(s) in each nostril 2 times a day; Duration: 30 days 06/23/2023 Active NEBIVOLOL 10 MG TAKE 1 TABLET EVERY DAY; Duration: 90 *Please review for potential replacement for e-prescription and drug interaction check* Active Alendronate Sodium 70 MG 1 tab(s) orally once a week; Duration: 90 days Active Baclofen 10 MG 1 tab(s) orally 3 times a day; Duration: 90 days Active Peridex 0.12 % 15 mL orally 2 times a day; Duration: 30 days 12/31/2022 Active Methocarbamol 500 MG 1-2 tab(s) orally 3 times a day; Duration: 5 day(s) 03/26/2020 Active Multivitamin MULTIPLE VITAMINS 1 CAP(S) ORALLY ONCE A DAY *Please review and pick correct strength-formulati on from [employer] options. If intended option is not shown, discontinue and re-order from Quick Search* Active OS-EHSAN 500 1250 MG 1 TAB(S) ORALLY BID *Please review for potential replacement for e-prescription and drug interaction check* Active Aspirin 81 MG 1 tab(s) orally once a day Active Vital Signs Temperature 98.6 degrees Fahrenheit 10/31/19 25 Oximetry 98 10/30/2024 Heart Rate 68 /min 10/30/2024 Blood pressure systolic 118 mm Hg 10/31/19 25 Blood pressure diastolic 80 mm Hg 025 Height 5 ft 3 in in 10/30/2024 Weight 232 lbs 10/30/2024 BMI 41.09 kg/m2 10/30/2024 Encounters Encounter Location Date Provider Diagnosis [address] [address] 10/30/2024 Telma Francois Bronchopneumonia J18 .0 Assessments Encounter Date Diagnosis (ICD Code) Assessment Notes Treatment Notes Treatment Clinical Notes Section Notes 10/30/2024 Bronchopneumonia (ICD-10 - J18.0) Discussed the etiology and expected course of bronchopneumonia . Discussed the rationale for antibiotics and steroid use and the importance of completeing the prescription as prescribed. Discussed supportive care. Discussed the signs and symptoms of worsening infection/respir atory distress that may indicate need for reassessment in clinic/ED. Plan Of Treatment Medication Medication Name Sig Start Date Stop Date Notes Amoxicillin-Pot Clavulanate 875-125 MG 1 tablet Orally every 12 hrs; Duration: 7 days 10/30/2024 Treatment Notes Assessment Notes Bronchopneumonia Discussed the etiolo gy and expected course of bronchopneumonia. Discussed the rationale for antibiotics and steroid use and the importance of completeing the prescription as prescribed. Discussed supportive care. Discussed the signs and symptoms of worsening infection/respiratory distress that may indicate need for reassessment in clinic/ED. Next Appt Details Follow Up: prn, Reason: Provider Name:Jose Mendoza, 02/27/2025 10:00:00 AM, [address] [place] [address], [id number], Medications Administered Medication Instructions Date of Administration Dosage Notes Dexamethasone 4mg Injection 10/30/2024 4 mg Progress Notes * Helena TIMOB:1945 (79 yo F)Acc No.[id number]:10/30/2024 Progress Notes Patient: Gina MARTINEZ Provider: Angi Francois APRN :1945 A ge:79 Y S ex:Female Date:10/30/2024 Address:[address] [place], [place] [id number] Pcp:Jose Mendoza Subjective: * Chief Complaints: * 1 . coughing up yellowish mucus , S.O.A , runny nose. * HPI: E NT/respiratory: 79 year old female presents with c/o cough. c/o nasal congestion. c/o rhinorrhea. c/o postnasal drip. c/o shortness of breath. c/o wheeze. c/o chest congestion. Denies : sore throat. D enies : fever. D enies : ear pain. D enies : headache. Presents with symptoms x 4-5 days. Increased congestion and SOA the last 24 hours. No fevers. No known sick contacts. * ROS: C ONSTITUTIONAL: no L oss of appetite. n o F ever. D ERMATOLOGY: no R kostas. G ASTROENTEROLOGY: no N ausea. n o V omiting. n o D iarrhea.? * Medical History: o steoporosis - most [...] Last eye exam 11/2015, Colon Cancer. * Medications: T aking Aspirin 81 MG [...] *Please review and pick correct strength-formulation from [employer] options. If intended option is not shown, [...] tab(s) orally once a day , Taking Spironolactone 50 MG Tablet 1 tablet Orally twice a day , Taking HYDROcodone-Acetaminophen 7.5-325 MG Tablet 1 tab(s) orally every 6 hours , Taking Pantoprazole Sodium 40 MG Tablet Delayed Release TAKE 1 TABLET TWICE DAILY , Taking Isosorbide Mononitrate ER 60 MG Tablet Extended Release 24 Hour TAKE 1 TABLET EVERY MORNING , Taking Xarelto 20 MG Tablet TAKE 1 TABLET ONE TIME DAILY IN THE EVENING , Taking Pravastatin Sodium 80 MG Tablet TAKE 1 TABLET EVERY DAY , Taking Lisinopril 20 MG Tablet TAKE 1 TABLET EVERY DAY , Discontinued Amoxicillin 875 MG Tablet 1 tablet Orally Twice a day , Medication List reviewed and reconciled with the patient * Allergies: T amiflu: dizziness. Objective: * Vitals: N urse: dw, Pain: 8, Temp: 98.6, Pulse O2: 98, RR: 20, HR: 68, BP: 118/80, Ht: 5 ft 3 in, Wt: 232, BMI:41.09. * Examination: G eneral Examination: General P leasant and Cooperative, NAD on RA,. Chest: n ormal shape and expansion. Heart: R egular Rate and Rhythm, no murmur, rubs or gallops. HEENT: n ose congested, mucus membranes moist. Lungs: c rackles left lower lobe, otherwise clear. Neurologic Exam: A lert and oriented x 3 . Skin: w ithout acute rashes. Psych N ormal Mood/Affect. Assessment: * Assessment: 1. B ronchopneumonia - J18.0 (Primary) Plan: * Treatment: * Therapeutic Injections: Dexamethasone 4mg Injection : 4 mg (Route: Intramuscular) given by SAMY Sheehan on left deltoid * Procedure Codes: J 1100 Dexamethasone Sodium Phosphate 4mg Injection, 34947 THERAPEUTIC ADMINISTRATION * Follow Up: p rn * * Sign off status: Completed true * Provider: Angi Francois APRN Date: 0 10/30/2024 Generated for Maico mullen/Valentin/Jessica on: 12:49 PM EDT History and Physical Notes * HPI (History of Present Illness) Category Sub-Category Detail Notes Category Not es ENT/respiratory sore throat Presents wit h symptoms x 4-5 days. Increased congestion and SOA the last 24 hours. No fevers. No known sick contacts ear pain shortness of breath cough fever postnasal drip headache chest congestion rhinorrhea nasal congestion wheeze Examination Category Sub-Category Detail Notes Category Not es General Examination HEENT: nose congested, mucus membranes moist Heart: Regular Rate and Rhy thm, no murmur, rubs or gallops Lungs: crackles left lower lobe, otherwise clear Skin: without acute rashes Neurologic Exam: Alert and oriented x 3 Chest: normal shape and exp ansion General Pleasant and Coopera tive, NAD on RA, Psych Normal Mood/Affect
--- OUTSIDE RECORDS SUMMARY | 2024-11-06 10:00 | XMS_ITS ---
Author Organization [facility] Address [address] [place] [address] Care Team Providers Care Loading Shovel Oiler Name Role Phone Jnuaid Mendozahen Primary Care Provider Telma Francois Unavailable [phone] Allergies Allergen (clinical drug ingredient) Drug/Non Drug [...] Diagnosis 1 Abdominal distension (R14.0) Referral Organization [facility] Referring Provider First Name Telma Referring Provider Last Name Priscila Referring Provider Speciality Family [facility] General Notes Teri Beyer 04:44:36 PM > [...] review and pick correct strength-formulati on from [employer] options. If intended option is not shown, [...] 11/06/2024 Encounters Encounter Location Date Provider Diagnosis [address] [address] 11/06/2024 Telma McNees Shortness of breath R06.02 [...] pending US, Reaso n: Provider Name:Jose Mendoza, 02/27/2025 10:00:00 AM, 2016 [facility], [facility], [place], [address], Progress Notes * Helena TIMOB:1945 (79 yo F)Acc No.[id number]:11/06/2024 Progress Notes Patient: Gina MARTINEZ Provider: Angi [...] *Please review and pick correct strength-formulation from [employer] options. If intended option is not shown, [...] 0 11/06/2024 Generated for Maico mullen/Valentin/eTransmitting on: 12:48 PM EDT History and Physical Notes * [...]
--- OUTSIDE RECORDS SUMMARY | 2024-12-14 07:45 | XMS_ITS ---
Author Organization [facility] D MAGAN Address [address] [facility] [address] [place] [address] Care Team Providers Care Highway Commissioner Name Role Phone Jose Mendoza Primary Care Provider [phone] Allergies Allergen (clinical drug ingredient) Drug/Non Drug Allergy documented on EMR Reaction Allergy Type Onset Date Status oseltamivir Tamiflu dizziness Drug Allergy Activ e REASON FOR VISIT Medication follow up, [employer] PAF Medications Medication SIG (Take, Route, Frequency, Duration) Notes Start Date End Date Status Peridex 0.12 % 15 mL orally 2 times a day; Duration: 30 days 12/31/2022 Active Alendronate Sodium 70 MG 1 tab(s) orally once a week; Duration: 90 days Active Methocarbamol 500 MG 1-2 tab(s) orally 3 times a day; Duration: 5 day(s) 03/26/2020 Active Triamcinolone Acetonide 0.5 % 1 emigdio applied topically 2 times a day; Duration: 7 days 09/16/2023 Active Fluticasone Propionate 50 MCG/ACT 1 spray(s) in each nostril 2 times a day; Duration: 30 days 06/23/2023 Active Multivitamin MULTIPLE VITAMINS 1 CAP(S) ORALLY ONCE A DAY *Please review and pick correct strength-formulati on from [employer] options. If intended option is not shown, discontinue and re-order from Quick Search* Active OS-EHSAN 500 1250 MG 1 TAB(S) ORALLY BID *Please review for potential replacement for e-prescription and drug interaction check* Active Aspirin 81 MG 1 tab(s) orally once a day Active HYDROcodone-Acetaminop hen 7.5-325 MG 1 tab(s) orally every 6 hours; Duration: 30 days 12/07/2024 Active FeroSul 325 (65 Fe) MG TAKE 1 TABLET TWICE DAILY; Duration: 90 days Active Isosorbide Mononitrate ER 60 MG TAKE 1 TABLET EVERY MORNING; Duration: 90 Active Pravastatin Sodium 80 MG TAKE 1 TABLET EVERY DAY; Duration: 90 Active Xarelto 20 MG TAKE 1 TABLET ONE TIME DAILY IN THE EVENING; Duration: 90 Active Lisinopril 20 MG TAKE 1 TABLET EVERY DAY; Duration: 90 Active Baclofen 10 MG 1 tab(s) orally 3 times a day; Duration: 90 days Active Pantoprazole Sodium 40 MG TAKE 1 TABLET TWICE DAILY; Duration: 90 Active Spironolactone 50 MG 1 tablet Orally twice a day; Duration: 30 days 08/17/2024 Active Furosemide 40 MG 1 tab(s) orally once a day; Duration: 90 days 04/25/2024 Active NEBIVOLOL 10 MG TAKE 1 TABLET EVERY DAY; Duration: 90 *Please review for potential replacement for e-prescription and drug interaction check* Active Gemtesa 75 MG TAKE 1 TABLET EVERY DAY; Duration: 90 Active Immunizations Vaccine Route Administration Date Status Comme nts Fluzone High Dose IM Intramuscular 12/14/2024 Administered Problems Problem Type SNOMED Code ICD Code Onset Dates Problem Status W/U Status Risk Notes Problem Cholelithiasis without obstruction (22213084) Symptomatic cholelithiasis (K80.20) Active confirmed Vital Signs Temperature 98.2 degrees Fahrenheit 12/15/19 25 Heart Rate 72 /min 12/14/2024 Blood pressure systolic 136 mm Hg 12/15/19 25 Blood pressure diastolic 78 mm Hg 025 Height 5 ft 3 in in 12/14/2024 Weight 232 lbs 12/14/2024 BMI 41.09 kg/m2 12/14/2024 Encounters Encounter Location Date Provider Diagnosis [address] [address] 12/14/2024 Jose Mendoza Right hip pain M25.5 51 ; Pain, joint, knee, right M25.561 ; Primary osteoarthritis involving multiple joints M15.0 ; Immunization(s) administered Z23 ; Atherosclerosis of [place] coronary artery of [place] heart without angina pectoris I25.10 ; Symptomatic cholelithiasis K80.20 and Routine medical exam Z00.00 Assessments Encounter Date Diagnosis (ICD Code) Assessment Notes Treatment Notes Treatment Clinical Notes Section Notes 12/14/2024 Right hip pain (ICD-10 - M25.551) Lots of arthralgias and joint pains everywhere. She thinks that hip pain and knee pain are new and is worried about them being related to her previous francis placement. Will check x-rays and reevaluate the anatomy. 12/14/2024 Pain, joint, knee, right (ICD-10 - M25.561) 12/14/2024 Primary osteoarthritis involving multiple joints (ICD-10 - M15.0) Following with pain management for injections in the left knee 12/14/2024 Immunization(s) administered (ICD-10 - Z23) Flu shot today, otherwise up-to-date 12/14/2024 Atherosclerosis of [place] coronary artery of [place] heart without angina pectoris (ICD-10 - I25.10) Has seen communication studies professor, cleared for gallbladder surgery. Still seems to me to be fairly high risk, she will see [facility] surgery as noted below 12/14/2024 Symptomatic cholelithiasis (ICD-10 - K80.20) [facility] surgery consult pending. They will assess whether or not they think they can do this locally 12/14/2024 Routine medical exam (ICD-10 - Z00.00) Aged out of cancer screening, has had colon cancer so not qualified for this either. Shots up-to-date, fall risk high, fall prevention plan in place at home. Pain management noted. Depression screening negative, no cognitive impairment. is healthcare surrogate. Plan Of Treatment Treatment Notes Assessment Notes Right hip pain Lots of arthralgias and joint pains everywhere. She thinks that hip pain and knee pain are new and is worried about them being related to her previous francis placement. Will check x-rays and reevaluate the anatomy. Primary osteoarthritis invol ving multiple joints Following with pain management for injections in the left knee Immunization(s) administered Flu shot to day, otherwise up-to-date Atherosclerosis of [place] co ronary artery of [place] heart without angina pectoris Has seen communication studies professor, cleared for gallbladder surgery. Still seems to me to be fairly high risk, she will see [facility] surgery as noted below Symptomatic cholelithiasis [facility] surgery consult pending. They will assess whether or not they think they can do this locally Routine medical exam Aged out of cancer screening, has had colon cancer so not qualified for this either. Shots up-to-date, fall risk high, fall prevention plan in place at home. Pain management noted. Depression screening negative, no cognitive impairment. is healthcare surrogate. Pending Test Test Name Order Date X ray : Hip and thigh, Right 12/14/2024 Next Appt Details Follow Up: 3 Months, Reason: Provider Name:Jose Mendoza, 02/27/2025 10:00:00 AM, [address], [address], Progress Notes * Jorge TIMeDOB:1945 (79 yo F)Acc No.[id number]:12/14/2024 Progress Notes Patient: Gina MARTINEZ Provider: Abdelrahman Mendoza MD :1945 A ge:79 Y S ex:Female Date:12/14/2024 [facility] [facility] Subjective: * Chief Complaints: * 1 . Medication follow up. 2. [employer] PAF. * HPI: g en: Patient here to follow-up for multiple problems and to go over her [employer] practitioner assessment form wellness issues. Feels poorly, thinks it is related to her gallbladder, has been very extensive preop evaluation for gallbladder surgery and is scheduled to see general surgery at [facility] on December 20. Also scheduled for pain management injections in her left knee next week. Is having more pain in her right hip and knee, had a francis placed after an accident many years ago but has not had x-rays on this in a while. * ROS: F UNCTIONAL STATUS: ADLS V chinedu poor functional status, mostly in a wheelchair, limited by pain, morbid obesity and dyspnea. * Medical History: o steoporosis - most [...] Hospitalization/Major Diagno stic Procedure: H [place] 2012, [facility] - 07/22-07/24/2023, - Colon surgery 07/10-. * Family History: F ather: . M other: . P aternal Grand Father: . P aternal Grand Mother: . M aternal Grand Father: . M aternal Grand Mother: . Siblings: alive, 2 brothers - ca, diagnosed with Cancer. C hannah: alive, COPD, DM, HTN, HLD, diagnosed with [...] *Please review and pick correct strength-formulation from [employer] options. If intended option is not shown, [...] topically 2 times a day , Taking Gemtesa 75 MG Tablet TAKE 1 TABLET EVERY DAY , Taking NEBIVOLOL 10 MG TABLET TAKE 1 TABLET EVERY DAY , Notes to Pharmacist: *Please review for potential replacement for e-prescription and drug interaction check*, Taking Furosemide 40 MG Tablet 1 tab(s) orally once a day , Taking Spironolactone 50 MG Tablet 1 tablet Orally twice a day , Taking Pantoprazole Sodium 40 MG Tablet [...] TAKE 1 TABLET EVERY DAY , Taking Baclofen 10 MG Tablet 1 tab(s) orally 3 times a day , Taking FeroSul 325 (65 Fe) MG Tablet TAKE 1 TABLET TWICE DAILY , Taking HYDROcodone-Acetaminophen 7.5-325 MG Tablet 1 tab(s) orally every 6 hours , Medication List reviewed and reconciled with the patient * Allergies: T amiflu: dizziness. Objective: * Vitals: N urse: be, Pain: 9, Temp: 98.2, RR: 20, HR: 72, BP: 136/78, Ht: 5 ft 3 in, Wt: 232, BMI:41.09. * Examination: G eneral Examination: General P leasant and Cooperative, NAD on RA,Morbidly obese. Wheelchair confined. Chest: n ormal shape and expansion. Heart: R egular Rate and Rhythm, no murmur, rubs or gallops. HEENT: u nremarkable . Lungs: f ine crackles right base, otherwise clear. Abdomen: s omewhat distended, mild diffuse tenderness. Neurologic Exam: A lert and oriented x 3 . Skin: w ithout acute rashes. Psych N ormal Mood/Affect. t race BLE edema. Assessment: * Assessment: 1. R ight hip pain - M25.551 (Primary) 2 . P ain, joint, knee, right - M25.561 3 . P rimary osteoarthritis involving multiple joints - M15.0 ?4. I mmunization(s) administered - Z23 5 . A therosclerosis of [place] coronary artery of [place] heart without angina pectoris - I25.10 6 . S ymptomatic cholelithiasis - K80.20 7 . R outine medical exam - Z00.00 Plan: * Treatment: Notes: Lots of arthralgias and joint pains everywhere. She thinks that hip pain and knee pain are new and is worried about them being related to her previous francis placement. Will check x-rays and reevaluate the anatomy.??2.?Pain, joint, knee, right?Imaging: X ray : Hip and thigh, Right* 3.?Primary osteoarthritis involving multiple joints? Notes: Following with pain management for injections in the left knee?? 4.?Immunization(s) administered? Notes: Flu shot today, otherwise up-to-date??5.?Atherosclerosis of [place] coronary artery of [place] heart without angina pectoris? Notes: Has seen communication studies professor, cleared for gallbladder surgery. Still seems to me to be fairly high risk, she will see [facility] surgery as noted below??6.?Symptomatic cholelithiasis? Notes: [facility] surgery consult pending. They will assess whether or not they think they can do this locally??7.?Routine medical exam? Notes: Aged out of cancer screening, has had colon cancer so not qualified for this either. Shots up-to-date, fall risk high, fall prevention plan in place at home. Pain management noted. Depression screening negative, no cognitive impairment. is healthcare surrogate.?? * Immunizations: Fluzone High Dose : 0.5 mL (Route: Intramuscular) given by KENIA Benson on Right Deltoid (Immunization(s) administered) * Procedure Codes: 9 0662 Influenza High Dose Vaccine >65 Years Old, G0008 ADMINISTRATION-FLU VACCINE MEDICARE ONLY, G2211 Complex [place], [address] HEALTH RISK [id number] * Follow Up: 3 Months * * Sign off status: Completed true * Provider: Abdelrahman Mendoza MD Date: Generated for Maico mullen/Valentin/eTransmitting on: 1 12:48 PM EDT History and Physical Notes * HPI (History of Present Illness) Category Sub-Category Detail Notes Category Not es gen Patient here to follow-up for multiple problems and to go over her [employer] practitioner assessment form wellness issues. Feels poorly, thinks it is related to her gallbladder, has been very extensive preop evaluation for gallbladder surgery and is scheduled to see general surgery at [facility] on December 20. Also scheduled for pain management injections in her left knee next week. Is having more pain in her right hip and knee, had a francis placed after an accident many years ago but has not had x-rays on this in a while Examination Category Sub-Category Detail Notes Category Not [...] General Pleasant and Coopera tive, NAD on RA,Morbidly obese. Wheelchair confined Psych Normal Mood/Affect
--- NOTE | 2024-12-18 12:43 | XR_ITS ---
FINAL REPORT CLINICAL HISTORY: new onset right hip pain and weakness, fx and surgery 30 years ago. no new injury COMPARISON: None FINDINGS: Two views of the right femur were obtained. An intramedullary francis is present. There is a healed fracture deformity of the distal femur. The bones are osteopenic. There is no acute fracture or dislocation. The joint spaces are well preserved. There is no acute soft tissue abnormality. IMPRESSION: No acute abnormality identified. Reviewed, Interpreted and Dictated by Efrain Hylton MD Transcribed by Ronda De Authenticated and [facility]
--- NOTE | 2024-12-18 12:43 | XR_ITS ---
FINAL REPORT CLINICAL HISTORY: new onset right hip pain and weakness, fx and surgery 30 years ago. no new injury COMPARISON: None FINDINGS: RIGHT HIP Two views of the right hip demonstrate no acute fracture or dislocation. An IM francis is present. The joint spaces are mildly narrowed. The visualized bony structures are well aligned. The bones are osteopenic. No soft tissue abnormality is seen. IMPRESSION: Degenerative/chronic changes without acute bony abnormality. Reviewed, Interpreted and Dictated by Efrain Hylton MD Transcribed by Ronda De Authenticated and [facility]
--- OUTSIDE RECORDS SUMMARY | 2024-12-18 12:49 | XMS_ITS | Patient Health Record ---
Author Organization [facility] D MAGAN Address [address] [place] [address] Care Team Providers Care Clinical Trial Data Manager Name Role Phone Jose Mendoza Primary Care Provider Telma Francois Unavailable [phone] Migration, Provider Unavailable Unavailable Allergies Allergen (clinical [...] LYME DISEASE AB W/REFL IA (I GG,IGM) (75395) Reviewed date:10/16/2024 09:04:29 AM Interpretation: Performing Lab:GRICELDA [facility],[address], [place]psg[place]pVC[address] Angelica Armijo MD,PhD,LESLY Notes/Report: NON-FASTING; NON-FASTING; NON-FASTING; [...] Reviewed date:10/16/2024 09:04:29 AM Interpretation: Performing Lab:JOANN [facility] [address], [facility] MinnesotaRfpbVD[address] Dewayne Tamayo Notes/Report: NON-FASTING; NON-FASTING; NON-FASTING; NON-FASTING IRON, TOTAL 58 45-160 mcg/dL IRON BINDING CAPACITY 342 250-450 mcg/dL (marielos c) % SATURATION 17 16-45 % (calc) FERRITIN 36 16-288 ng/mL IRON, TIBC AND FERRITIN PANE L (5616) Reviewed date:03/27/2024 10:28:09 AM Interpretation: Performing Lab:JOANN [facility] [address], PerMicroLueiJH[address] Dewayne Tamayo Notes/Report: NON-FASTING; NON-FASTING; NON-FASTING; NON-FASTING; NON-FAST FASTING:NO FASTING: NO IRON, TOTAL 26 45-160 mcg/dL IRON BINDING CAPACITY 348 250-450 mcg/dL (marielos c) % SATURATION 7 16-45 % (calc) FERRITIN 51 16-288 ng/mL LIPID PANEL, STANDARD (7600) Reviewed date:03/09/2024 10:11:58 AM Interpretation: Performing Lab:JOANN [facility] FarmGillette [facility] Healthcaree[address] [employer] (Group[facility], [facility] Medical CenterKnrbMA[address] Dewayne Tamayo Notes/Report: NON-FASTING; NON-FASTING FASTING:NO FASTING: [...] LDL-C. Alonzo SS et al. RITA. 2013;310(19): 8442-0130 (http://education.FastCall.Oslo Software/faq/VDJ263) CHOL/HDLC RATIO 2.6 <5.0 (calc) NON HDL CHOLESTEROL 98 <130 mg/dL (calc) For patients with diabetes plus 1 major ASCVD risk factor, treating to a non-HDL-C goal of <100 mg/dL (LDL-C of <70 mg/dL) is considered a therapeutic option. COMPREHENSIVE METABOLIC PANE (00339) Reviewed date:03/27/2024 10:28:09 AM Interpretation: Performing Lab:JOANN [facility] FarmGil[facility] Healthcaree[address] [employer]tel [facility], [facility] CenterIrzcYB[address] Dewayne Tamayo Notes/Report: NON-FASTING; NON-FASTING; NON-FASTING; NON-FASTING; [...] 12 6-29 U/L COMPREHENSIVE METABOLIC PANE L (22089) Reviewed date:03/09/2024 10:11:59 AM Interpretation: Performing Lab:JOANN [employer] [address], FleksySlptTC[address] Dewayne Tamayo Notes/Report: FASTING: NO FASTING:NO NON-FASTING; [...] 12 6-29 U/L COMPREHENSIVE METABOLIC PANE L (03752) Reviewed date:09/01/2024 03:05:17 PM Interpretation: Performing Lab:JOANN [employer] Solutionse[address] [employer], NeuraQuxdSA[address] eDwayne Tamayo Notes/Report: NON-FASTING; NON-FASTING; NON-FASTING GLUCOSE 93 [...] 10 6-29 U/L COMPREHENSIVE METABOLIC PANE L (44230) Reviewed date:10/16/2024 09:04:29 AM Interpretation: Performing Lab:CB, [facility] Xxcm9399 [facility]te[facility], [facility] CenterHektJX[address] Dewayne Tamayo Notes/Report: NON-FASTING; NON-FASTING; NON-FASTING; NON-FASTING [...] 17 10-35 U/L ALT 11 6-29 U/L MAGNESIUM (622) Reviewed date:09/01/2024 03:05:17 PM Interpretation: Performing Lab:JOANN, [facility] [address], NeuraIctsAF[address] Dewayne Tamayo Notes/Report: NON-FASTING; NON-FASTING; NON-FASTING MAGNESIUM 2.2 1.5-2.5 mg/dL CBC (INCLUDES DIFF/PLT) (269 9) Reviewed date:09/01/2024 03:05:17 PM Interpretation: Performing Lab:JOANN, [facility] [address], NeuraLcqyWF[address] Dewayne Tamayo Notes/Report: NON-FASTING; NON-FASTING; NON-FASTING WHITE [...] MPV 12.6 7.5-12.5 fL ABSOLUTE NEUTROPHILS 3127 3135-1074 cells/uL ABSOLUTE LYMPHOCYTES 2269 850-3900 cells/uL ABSOLUTE MONOCYTES 819 200-950 cells/uL ABSOLUTE EOSINOPHILS 247 15-500 cells/uL ABSOLUTE BASOPHILS 39 0-200 cells/uL NEUTROPHILS 48.1 LYMPHOCYTES 34.9 MONOCYTES 12.6 EOSINOPHILS 3.8 BASOPHILS 0.6 CBC (INCLUDES DIFF/PLT) (219 9) Reviewed date:10/16/2024 09:04:29 AM Interpretation: Performing Lab:JOANN, [facility] [address], PerMicroZcunRF[address] Dewayne Tamayo Notes/Report: NON-FASTING; NON-FASTING; NON-FASTING; NON-FASTING [...] MPV 12.2 7.5-12.5 fL ABSOLUTE NEUTROPHILS 3585 8216-3636 cells/uL ABSOLUTE LYMPHOCYTES 2023 850-3900 cells/uL ABSOLUTE MONOCYTES 864 200-950 cells/uL ABSOLUTE EOSINOPHILS 201 15-500 cells/uL ABSOLUTE BASOPHILS 27 0-200 cells/uL NEUTROPHILS 53.5 LYMPHOCYTES 30.2 MONOCYTES 12.9 EOSINOPHILS 3.0 BASOPHILS 0.4 CBC (INCLUDES DIFF/PLT) (639 9) Reviewed date:03/27/2024 10:28:09 AM Interpretation: Performing Lab:CB, [facility] Jjsd[address] [facility], [facility]'S MinnesotaLmdwAF[address] Dewayne Tamayo Notes/Report: NON-FASTING; NON-FASTING; NON-FASTING; NON-FASTING; [...] MPV 12.6 7.5-12.5 fL ABSOLUTE NEUTROPHILS 3577 5540-9134 cells/uL ABSOLUTE LYMPHOCYTES 7063 614-8772 cells/uL ABSOLUTE MONOCYTES 794 200-950 cells/uL ABSOLUTE EOSINOPHILS 167 15-500 cells/uL ABSOLUTE BASOPHILS 31 0-200 cells/uL NEUTROPHILS 57.7 LYMPHOCYTES 26.3 MONOCYTES 12.8 EOSINOPHILS 2.7 BASOPHILS 0.5 RETICULOCYTE COUNT (793) Reviewed date:03/27/2024 10:28:09 AM Interpretation: Performing Lab:JOANN [facility] [employer] [address], PerMicroOqpqPZ[address] Dewayne Tamayo Notes/Report: NON-FASTING; NON-FASTING; NON-FASTING; NON-FASTING; NON-FAST FASTING:NO FASTING: NO RETICULOCYTE COUNT, AUTOMATED 4.9 RETICULOCYTE, ABSOLUTE 280757 [address] cells/ uL VITAMIN B12/FOLATE, SERUM IA ILANA (7065) Reviewed date:03/27/2024 10:28:09 AM Interpretation: Performing Lab:JOANN [facility] [address], PerMicroJeadQC[address] Dewayne Tamayo Notes/Report: NON-FASTING; NON-FASTING; NON-FASTING; NON-FASTING; NON-FAST FASTING:NO FASTING: NO VITAMIN B12 541 646-7701 pg/mL Please Note: Although the reference range [...] 1 TABLET EVERY DAY; Duration: 90 Active NEBIVOLOL 10 MG TAKE 1 TABLET EVERY DAY; Duration: 90 *Please review for potential replacement for e-prescription and drug interaction check* Active Gemtesa 75 MG TAKE 1 TABLET EVERY DAY; Duration: 90 Active HYDROcodone-Acetaminop hen 7.5-325 MG 1 tab(s) orally every 6 hours; Duration: 30 days 12/07/2024 Active Triamcinolone Acetonide 0.5 % 1 emigdio applied topically 2 times a day; Duration: 7 days 09/16/2023 Active FeroSul 325 (65 Fe) MG TAKE 1 TABLET TWICE DAILY; Duration: 90 days Active Fluticasone Propionate 50 MCG/ACT 1 spray(s) in each nostril 2 times a day; Duration: 30 days 06/23/2023 Active Baclofen 10 MG 1 tab(s) orally 3 times a day; Duration: 90 days Active Multivitamin MULTIPLE VITAMINS 1 CAP(S) ORALLY ONCE A DAY *Please review and pick correct strength-formulati on from Expertcloud.de options. If intended option is not shown, discontinue and re-order from Quick Search* Active Isosorbide Mononitrate ER 60 MG TAKE 1 TABLET EVERY MORNING; Duration: 90 Active OS-MARIELOS 500 1250 MG 1 TAB(S) ORALLY BID *Please review for potential replacement for e-prescription and drug interaction check* Active Pantoprazole Sodium 40 MG TAKE 1 TABLET TWICE DAILY; Duration: 90 Active Aspirin 81 MG 1 tab(s) orally once a day Active Furosemide 40 MG 1 tab(s) orally once a day; Duration: 90 days 04/25/2024 Active Peridex 0.12 % 15 mL orally 2 times a day; Duration: 30 days 12/31/2022 Active Spironolactone 50 mg TAKE ONE TABLET BY MOUTH TWICE DAILY; Duration: 30 Active Alendronate Sodium 70 MG 1 tab(s) orally once a week; Duration: 90 days Active Pravastatin Sodium 80 MG TAKE 1 TABLET EVERY DAY; Duration: 90 Active Methocarbamol 500 MG 1-2 tab(s) orally 3 times a day; Duration: 5 day(s) 03/26/2020 Active Xarelto 20 MG TAKE 1 TABLET ONE TIME DAILY IN THE EVENING; Duration: 90 Active Immunizations Vaccine Route Administration [...] 12/08/2022 Administered Fluzone High Dose IM Intramuscular 11/30/2023 Administered Fluzone High Dose IM Intramuscular 12/14/2024 Administered Covid Yokasta Unknown 05/02/2020 Administered Covid [...] 11/24/2013 Administered Adacel (Tdap) Unknown 04/23/2015 Administered Problems Problem Type SNOMED Code ICD Code Onset Dates Problem Status W/U Status Risk Notes Problem Chronic pain syndrome (127833134) Chronic pain syndrome (G89.4) Active confirmed Problem Overactive bladder (180807603) Overactive bladder (N32.81) Active confirmed Problem Urge incontinence of urine (75232082) Urge incontinence (N39.41) Active confirmed Problem Hypertension (77221393) HTN (hypertension) (I10) Active confirmed Problem Vitamin D deficiency (00781040) Vitamin D deficiency (E55.9) Active confirmed Problem Osteoporosis (99794051) Osteoporosis (M81.0) Active confirmed Problem Hyperlipidemia (30856252) Hyperlipemia, idiopathic familial (E78.5) Active confirmed Problem Mild cognitive impairment (474813075) Mild cognitive impairment (G31.84) Active confirmed Problem Gastroesophageal reflux disease (941991524) GERD without esophagitis (K21.9) Active confirmed Problem Lymphedema (63516336) Lymphedema (I89.0) Active confirmed Problem Body mass index 30.00 to 34.99 (835401240497414) BMI 34.0-34.9,adult (Z68.34) Active confirmed Problem Chronic pain (71166042) Other chronic pain (G89.29) Active confirmed Problem Cardiac pacemaker in situ (034464911) Status cardiac pacemaker (Z95.0) Active confirmed Problem Atherosclerosis of coronary artery without angina pectoris (037979761037959) Atherosclerosis of [place] coronary artery of [place] heart without angina pectoris (I25.10) Active confirmed Problem Memory loss (69103122) Memory loss (R41.3) Active confirmed Problem Primary osteoarthritis (225680647) Primary osteoarthritis involving multiple joints (M15.0) Active confirmed Problem Urge incontinence of urine (74719849) Urinary incontinence, urge (N39.41) Active confirmed Problem Sacroiliitis (64992203) Sacroiliitis (M46.1) Active confirmed Problem Iron deficiency anemia (47160046) Iron deficiency anemia, unspecified iron deficiency anemia type (D50.9) Active confirmed Problem Obese class II (391937216530697) BMI 35.0-35.9,adult (Z68.35) Active confirmed Problem Chronic diastolic heart failure (358166342) Diastolic CHF, chronic (I50.32) Active confirmed Problem Chronic anemia (321407755) Chronic anemia (D64.9) Active confirmed Problem Primary adenocarcinoma of colon (3874065910102) Adenocarcinoma, colon (C18.9) Active confirmed Problem Arthritis of knee (271639172) Arthritis of knee (M17.10) Active confirmed Problem Gastroesophageal reflux disease with esophagitis (disorder) (096842173) Gastroesophageal reflux disease with esophagitis without hemorrhage (K21.00) Active confirmed Problem Adrenal mass (867359923) 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) Active confirmed Problem Cholelithiasis without obstruction (98161164) Symptomatic cholelithiasis (K80.20) Active confirmed Vital Signs Heart Rate 72 /min 12/14/2024 Temperature 98.2 degrees Fahrenheit 12/14/2024 Oximetry 99 11/06/2024 Blood pressure diastolic 78 mm Hg 12/14/2024 Height 5 ft 3 in in 12/14/2024 Blood pressure systolic 136 mm Hg 12/14/2024 Weight 232 lbs 12/14/2024 BMI 41.09 kg/m2 12/14/2024 Encounters Encounter Location Date Provider Diagnosis [facility] [address] [place] [address] 05/27/2024 Provider Migration Chronic pain syndrome G89.4 and Bronchitis J40 [facility] [address] [address] 01/04/2024 Jose Mendoza Acute bronchopneumon ia J18.0 ; Diastolic CHF, chronic I50.32 and Hospital discharge follow-up Z09 [facility] [address] [address] 03/07/2024 Jose Mendoza Primary osteoarthrit is involving multiple joints M15.0 ; HTN (hypertension) I10 ; Hyperlipemia, idiopathic familial E78.5 ; Lymphedema I89.0 ; Dyspnea on exertion R06.09 ; Overactive bladder N32.81 and Routine medical exam Z00.00 [facility] [address] [address] 03/23/2024 Jose Mendoza Chronic anemia D64.9 ; Dyspnea on effort R06.09 and Arthritis of knee M17.10 [facility] [address] [address] 05/05/2024 Telma McNees Bronchitis J40 [facility] [address] [address] 06/13/2024 Jose Mendoza Adenocarcinoma, colo n C18.9 ; Atherosclerosis of [place] coronary artery of [place] heart without angina pectoris I25.10 ; Iron deficiency anemia, unspecified iron deficiency anemia type D50.9 ; Diastolic CHF, chronic I50.32 and Chronic pain syndrome G89.4 [facility] [address] [address] 07/20/2024 Jose Mendoza Diastolic CHF, chron ic I50.32 ; S/P right colectomy Z90.49 ; Adenocarcinoma, colon C18.9 and Hospital discharge follow-up Z09 [facility] [address] [address] 08/17/2024 Jose Mendoza Left heart failure w ith preserved LV function I50.30 and Hospital discharge follow-up Z09 [facility] [address] [address] 08/31/2024 oJse Mendoza Diastolic CHF, chron ic I50.32 and Iron deficiency anemia, unspecified iron deficiency anemia type D50.9 [facility] [address] [address] 10/10/2024 Jose Mendoza Iron deficiency anem ia, unspecified iron deficiency anemia type D50.9 ; Hyperlipemia, idiopathic familial E78.5 ; Adenocarcinoma, colon C18.9 ; Diastolic CHF, chronic I50.32 ; Insect bite (nonvenomous), left thigh, initial encounter S70.362A and Bitten or stung by nonvenomous insect and other nonvenomous arthropods, initial encounter W57.XXXA [facility] [address] [address] 10/30/2024 Telma Priscila Bronchopneumonia J18 .0 [facility] [address] [address] 11/06/2024 Telma Priscila Shortness of breath R06.02 and Abdominal distension R14.0 [facility] [address] [address] 12/14/2024 Jose Mendoza Right hip pain M25.5 51 ; Pain, joint, knee, right M25.561 ; Primary osteoarthritis involving multiple joints M15.0 ; Immunization(s) administered Z23 ; Atherosclerosis of [place] coronary artery of [place] heart without angina pectoris I25.10 ; Symptomatic cholelithiasis K80.20 and Routine medical exam Z00.00 [facility] [address] [facility] [address] [place] [address] 01/03/2024 Jose Mendoza [facility] [address] [address] 01/14/2024 Jose Mendoza Chronic pain syndrom e G89.4 [facility] [address] [address] 02/14/2024 Jose Mendoza Chronic pain syndrom e G89.4 [facility] [address] [address] 03/13/2024 Jose Mendoza Chronic pain syndrom e G89.4 [facility] [address] [address] 03/20/2024 Joes Mendoza Peripheral edema R60 .0 [facility] [address] [address] 04/14/2024 Jose Besson Chronic pain syndrom e G89.4 [facility] [address] [place] [address] 04/24/2024 Jose Besson Peripheral edema R60 .0 [facility] [address] [place] [address] 04/25/2024 Jose Besson [facility] [address] [place] [address] 05/11/2024 Jose Besson Chronic pain syndrom e G89.4 [facility] [address] [place] [address] 06/12/2024 Jose Besson Chronic pain syndrom e G89.4 [facility] [address] [place] [address] 07/10/2024 Jose Besson Chronic pain syndrom e G89.4 [facility] [address] [place] [address] 07/19/2024 Jose Besson [facility] [address] [place] [address] 07/19/2024 Jose Besson [facility] [address] [place] [address] 08/11/2024 Jose Besson Chronic pain syndrom e G89.4 [facility] [address] [place] [address] 09/07/2024 Jose Besson Chronic pain syndrom e G89.4 [facility] [address] [place] [address] 10/05/2024 Jose Besson Chronic pain syndrom e G89.4 [facility] [address] [place] [address] 11/06/2024 Jose Besson Chronic pain syndrom e G89.4 [facility] [address] [place] [address] 11/06/2024 Telma McNees [facility] [address] [place] [address] 11/13/2024 Telma McNees [facility] [address] [place] [address] 11/20/2024 Jose Mendoza [facility] [address] [address] 12/07/2024 Jose Mendoza Chronic pain syndrom e G89.4 Assessments Encounter Date Diagnosis (ICD Code) Assessment Notes Treatment Notes Treatment Clinical Notes Section Notes 01/04/2024 Acute bronchopneumonia (ICD-10 - J18.0) Seems [...] stable, cont current regimen. 06/13/2024 Atherosclerosis of [place] coronary artery of [place] heart without angina pectoris (ICD-10 - I25.10) Currently stable from heart disease perspective, continues to follow with [facility].Will represent a high risk patient if [...] 11/06/2024 Chronic pain syndrome (ICD-10 - G89.4) 12/07/2024 Chronic pain syndrome (ICD-10 - G89.4) 10/10/2024 Hyperlipemia, idiopathic familial (ICD-10 - E78.5) 10/10/2024 Iron deficiency anemia, unspecified iron deficiency anemia type (ICD-10 - D50.9) History of anemia, will track labs today to see if this is causing her problems with fatigue 12/14/2024 Right hip pain (ICD-10 - M25.551) Lots of arthralgias and joint pains everywhere. She thinks that hip pain and knee pain are new and is worried about them being related to her previous francis placement. Will check x-rays and reevaluate the anatomy. 12/14/2024 Pain, joint, knee, right (ICD-10 - M25.561) 03/07/2024 HTN (hypertension) (ICD-10 - I10) Chronic, [...] 7.5 mg Q6H PRN. CSA signed today. 03/07/2024 Hyperlipemia, idiopathic familial (ICD-10 - E78.5) Chronic, stable. Lipid panel pending today. 10/10/2024 Adenocarcinoma, colon (ICD-10 - C18.9) Follows with [facility] oncology 12/14/2024 Primary osteoarthritis involving multiple joints (ICD-10 - M15.0) Following with pain management for injections in the left knee 06/13/2024 Iron deficiency anemia, unspecified iron deficiency anemia type (ICD-10 - D50.9) Will follow-up in 2 months with blood counts at that point 07/20/2024 Adenocarcinoma, colon (ICD-10 - C18.9) -s/p resection as above 03/23/2024 Arthritis of knee (ICD-10 - M17.10) Continue pain management, with medications for me as well as pain clinic visits. Knee injection done as noted above, hopefully this will give her some relief 01/04/2024 Hospital discharge follow-up (ICD-10 - Z09) Reviewed ER records, reconciled medications, she will finish of antibiotics this week 06/13/2024 Diastolic CHF, chronic (ICD-10 - I50.32) Currently appears euvolemic, blood pressure under good control, no changes in cardiac or diuretic medications 07/20/2024 Hospital discharge follow-up (ICD-10 - Z09) Personally reviewed H&P and discharge summary as available from hospital discharge documentation. Reviewed pertinent labs and test done in the hospital. Personally reconciled medication. 12/14/2024 Immunization(s) administered (ICD-10 - Z23) Flu shot today, otherwise up-to-date 10/10/2024 Diastolic CHF, chronic (ICD-10 - I50.32) Given overall diastolic heart failure, poor functional status, etc. I do think she is a good candidate for a scooter/para mobility device. Will initiate referral for this 03/07/2024 Lymphedema (ICD-10 - I89.0) Chronic, improved. Improvement with lymphedema PT. 03/07/2024 Dyspnea on exertion (ICD-10 - R06.09) Chronic, stable. Follows with cardiology with extensive w/u completed. Continue daily lasix and K supplementation. Pulmonology and pulmonology rehab referral placed. 12/14/2024 Atherosclerosis of [place] coronary artery of [place] heart without angina pectoris (ICD-10 - I25.10) Has seen regulatory affairs manager, cleared for gallbladder surgery. Still seems to me to be fairly high risk, she will see [facility] surgery as noted below 10/10/2024 Insect bite (nonvenomous), left thigh, initial encounter (ICD-10 - S70.362A) Tick bite. Unclear time course, given her aches and pains will check Lyme titers. Cover with amoxicillin given her total symptom burden 06/13/2024 Chronic pain syndrome (ICD-10 - G89.4) Patient has been compliant with our office and [place] regulations r.e. meds. No concerns on my part about diversion or misuse. Labs and Yuri reports reviewed and are appropriate. 10/10/2024 Bitten or stung by nonvenomous insect and other nonvenomous arthropods, initial encounter (ICD-10 - W57.XXXA) 12/14/2024 Symptomatic cholelithiasis (ICD-10 - K80.20) [facility] surgery consult pending. They will assess whether or not they think they can do this locally 03/07/2024 Overactive bladder (ICD-10 - N32.81) Chronic, [...] currently negative. Lab today. Will personally review. 12/14/2024 Routine medical exam (ICD-10 - Z00.00) Aged out of cancer screening, has had colon cancer so not qualified for this either. Shots up-to-date, fall risk high, fall prevention plan in place at home. Pain management noted. Depression screening negative, no cognitive impairment. is healthcare surrogate. Plan Of Treatment Pending Test Test Name Order Date Ultrasound : Abdomen 08/17/2012 X ray : Hip and thigh, Right 12/14/2024 Physical Therapy 04/08/2021 Physical Therapy 08/01/2019 Physical [...] Hydroxy 03/05/2022 Next Appt Details Provider Name:Jose Thomasurmila Mendoza, 02/27/2025 10:00:00 AM, [address], [address], Insurance Providers Payer Name Payer Address Payer Phone Subscriber Number Group Number Insured Name Patient Relationship to Insured Coverage Start Date Coverage End Date [employer] [address] [address] [place] [address] [id number] Gina Stone Self - patient is the insured MEDICAID EDS [address] [place] [address] [id number] Gina Stone Self - patient is the insured Medications Administered Medication Instructions Date of Administration Dosage Notes Dexamethasone 4mg Injection 12/17/2022 4 mg Dexamethasone 4mg Injection 05/05/2024 4 mg Dexamethasone 4mg Injection 10/30/2024 4 mg Kenalog 40mg 06/23/2016 40 mg Kenalog 40mg 11/12/2016 40 mg Triamcinolone Acetonide 40mg Injection 02/23/2019 1 mL Triamcinolone Acetonide 40mg Injection 08/01/2019 1 mL Kenalog 07/24/2014 1 Kenalog 10/23/2014 1 mL Kenalog 01/09/2016 1 mL Kenalog 04/02/2016 1 mL Medical (General) History Medical History History ICD [...] removed Hospitalization History Reason Date(Month/Year) HTN 2012 - Colon surgery 07/10- [facility] - 07/22-07/24/2023
--- OUTSIDE RECORDS SUMMARY | 2024-12-18 12:49 | XMS_ITS | Clinical Summary ---
Author Organization [facility] Address [address] [place] [address] Care Team Providers Care Cutting Machine Fixer Name Role Phone Jose Mendoza MD Primary Care Provider [phone] Allergies No known active allergies Medications alendronate [...] tablet by mouth daily. Active HYDROcodone-acetam inophen ([place]) 7.5-325 MG tablet Take 1 tablet by [...] exertion 01/31/2024 Coronary artery disease [place] coronary artery of [place] heart without angina pectoris 04/05/2023 Family History Medical History Relation Name Comments [...] any time in the past 12 m [facility], were you homeless or living in a alf (including now)? No 07/11/2024 Utilities Answer Date [...] EST Appointment [facility] [address] [place] [address] 01/09/2025 2:30 PM EST Office Visit [facility] [address] [place] [address] Mata Smalls MD [address] [place] [address] 01/09/2025 2:30 PM EST Clinical Support [facility] [address] [place] [address] Health Maintenance Due Date Last [...] or (1 - 1-dose 75+ series) 2018 [id number] Vaccine (3 - season) 2024 12/26/2020, 05/02/2020 [...] patient's age to complete this topic Insurance [facility] MEDICARE MEDICAID-[place] Advance Directives * Full Code (Latest Code Status on File) Date Activated Date Inactivated Comments 07/10/2024 8:40 PM 07/15/2024 6:51 PM Question Answer Comments I have reviewed the capacity from the link above and, if needed, have updated to appropriate status: Yes Care Teams Cutting Machine Fixer Relationship Specialty Start Date End Date Jose Mendoza MD [address] [place] [id number] PCP - General Internal Medicine 05/23/24
--- OUTSIDE RECORDS SUMMARY | 2024-12-18 12:49 | XMS_ITS | Encounter Summary ---
Author Organization Healthcare Address [address] [place] [address] Care Team Providers Care Parking Attendant Name Role Phone Jose Mendoza MD Primary Care Provider [phone] Encounter Details Date Type Department Care Team (Late st Contact Info) Description 06/15/2024 Lab Requisition [facility] [address] [place] [address] Mata Smalls MD [address] [address] Anemia, unspecified Social History Tobacco [...] EST Appointment [facility] [address] [place] [address] 01/09/2025 2:30 PM EST Office Visit [facility] [address] [place] [address] Mata Smalls MD [address] [address] 01/09/2025 2:30 PM EST Clinical Support [facility] [address] [place] [address] documented as of this encounter Procedures Procedure Name Priority Date/Time Associated Diagnosis Comments SURGICAL PATHOLOGY CONSULT Routine 06/15/2024 1:25 PM EDT Anemia, unspecified documented in this encounter Results * Surgical Pathology Consult (06/15/2024 1:25 PM EDT) Case Report Sugical Pathology Consult Case: [id number] Authorizing Provider: Mata Smalls MD Collected: 06/15/2024 1325 Ordering Location: [facility] Lab Received: 06/15/2024 1326 Pathologist: Mick Dash MD Specimen: Colon, [id number] 2:47 PM EDT [facility] Final Diagnosis (OUTSIDE CASE: [id number], PARTS C&D; COLLECTED ON 06/07/2024): COLON, HEPATIC FLEXURE, BIOPSY (C): - ADENOCARCINOMA, POORLY DIFFERENTIATED (SEE COMMENT) SIGMOID COLON, POLYP, BIOPSY (D): - ADENOCARCINOMA, POORLY DIFFERENTIATED (SEE COMMENT) 2:47 PM EDT [facility] at 1447 EDT Comment The [...] tumor with enteric differentiation. 2:47 PM EDT [facility] Clinical Information D64.9 - Anemia, unspecified [ICD-10-CM] 2:47 PM EDT [facility] Special and Immunohistochemical Stains Immunohistochemica l stains that have been performed and interpreted by the outside institution (not reviewed here), have been reported as follows: Positive: CDX2, SATB2 (focal, weak) Negative: CK7, CK20, SYNAPTOPHYSIN, CD56 MMR proteins; IHC interpretation (per report) Loss of nuclear expression of MLH1 and PMS2 2:47 PM EDT [facility] Gross Description A. [id number] Received along with a corresponding pathology report from [facility] are 2 slides labeled outside case: [id number] collected on 06/07/2024. 2:47 PM EDT [facility] Note: A resident was involved in the service. I attest I examined the relevant preparations for the specimens and confirmed the diagnosis or interpretation. 2:47 PM EDT [facility] Tissue Colon structure / Unknown 06/15/2024 1:25 PM EDT 06/15/2024 1:26 PM EDT us Mata Smalls MD LAB PATHOLOGY ORDERABLES Final Result [facility] [address] [place] [address] documented in this encounter Visit Diagnoses Diagnosis Anemia, unspecified documented in this encounter Care Teams Parking Attendant Relationship Specialty Start Date End Date Jose Mendoza MD [address] [place] [id number] PCP - General Internal Medicine 05/23/24 documented as of this encounter
== END 2024-12-18 23:59 | disposition home or self-care (01) ==
LOC: RAD 12:39
PROVIDERS: PCP Internal Medicine Adolescent Medicine; Visit Provider Internal Medicine Adolescent Medicine
DX: M16.11 Unilateral primary osteoarthritis, right hip (principal); M25.561 Pain in right knee
CPT/HCPCS: 73502; 73552

== ENCOUNTER 2024-12-19 14:16 | Day surgery (SDC) | payer MEDICARE, MEDICAID, SELFPAY ==
[2024-12-19 14:23] VITALS: BP 127/72; PULSE 69; RESP 16; O2SAT 95; BMI 41.1
[2024-12-19 14:37] VITALS: BP 127/72; PULSE 69; RESP 18; O2SAT 95
[2024-12-19] MEDS: BUPIVACAINE 0.25% 10ML INJ 25 MG IJ (14:37)
[2024-12-19] MEDS: LIDOCAINE 1% 5ML PF VIAL 5 ML (14:37)
[2024-12-19] MEDS: DEXAMETHASONE 10MG/ML 1ML VIAL 10 MG (14:40)
--- NOTE | 2024-12-19 14:40 | EXP.PAIN.PRO ---
Procedure Date: 12/19/24 Time: 14:40 Anesthesiologist:: Elvis Ford CRNA Complications:: None Pre-procedure Diagnosis:: DJD left knee. Chronic left knee pain. Post-procedure Diagnosis:: Same Indications for Procedure:: Patient is a very pleasant 79-year-old female who comes to clinic today for a left intra-articular knee injection of cortisone and local anesthetic. Patient describes left knee pain as constant, dull, aching. She rates her pain today 8/10. She reports responding very well to intra-articular cortisone in the past. Procedure Details:: Details of the procedure explained to the patient. The patient taken procedure room placed in the sitting position. The over the left knee was cleaned using chlorhexidine as a cleansing solution. Using a 22-gauge inch and half needle the left knee joint was accessed from the anterior lateral position. After negative aspiration 4 cc of 1% lidocaine +4 cc of 0.25% Marcaine and 10 mg of dexamethasone was injected. Patient tolerated procedure without difficulty. There are no complications. Plan and Disposition:: Patient was discharged without incident.
[2024-12-19 14:43] VITALS: BP 126/71; PULSE 63; RESP 16; O2SAT 96
== END 2024-12-19 14:43 | disposition home or self-care (01) ==
PROVIDERS: PCP Internal Medicine Adolescent Medicine; Visit Provider Nurse Anesthetist, Certified Registered
DX: M17.12 Unilateral primary osteoarthritis, left knee (principal); G89.29 Other chronic pain; I11.0 Hypertensive heart disease with heart failure; I50.9 Heart failure, unspecified; K21.9 Gastro-esophageal reflux disease without esophagitis; E78.5 Hyperlipidemia, unspecified; J45.909 Unspecified asthma, uncomplicated; G62.9 Polyneuropathy, unspecified; Z88.8 Allergy status to other drugs, medicaments and biological substances; Z95.0 Presence of cardiac pacemaker; Z85.038 Personal history of other malignant neoplasm of large intestine; Z79.51 Long term (current) use of inhaled steroids; Z79.891 Long term (current) use of opiate analgesic; Z79.899 Other long term (current) drug therapy
CPT/HCPCS: 20610; J0665; J1100; J2003

== ENCOUNTER 2025-02-13 10:34 | Outpatient (CLI) | payer MEDICARE, MEDICAID, SELFPAY ==
--- OUTSIDE RECORDS SUMMARY | 2024-05-27 16:30 | XMS_ITS ---
Author Organization [facility] D MAGAN Address [address] [place] [address] Care Team Providers Care Senior Marketing Specialist Name Role Phone Jose Mendoza Primary Care Provider [phone] Migration, Provider Unavailable Unavailable Allergies Allergen (clinical drug ingredient) Drug/Non Drug Allergy documented on EMR Reaction Allergy Type Onset Date Status oseltamivir Tamiflu dizziness Drug Allergy Activ e REASON FOR VISIT [facility] To [facility] Conversion Encounter Medications Medication SIG (Take, Route, Frequency, Duration) Notes Start Date End Date Status NEBIVOLOL 10 MG TAKE 1 TABLET EVERY DAY; Duration: 90 *Please review for potential replacement for e-prescription and drug interaction check* Active FeroSul 325 (65 Fe) MG TAKE 1 TABLET TWICE DAILY; Duration: 90 Active Gemtesa 75 MG TAKE 1 TABLET EVERY DAY; Duration: 90 Active Fluticasone Propionate 50 MCG/ACT 1 spray(s) in each nostril 2 times a day; Duration: 30 days 06/23/2023 Active Triamcinolone Acetonide 0.5 % 1 emigdio applied topically 2 times a day; Duration: 7 days 09/16/2023 Active Alendronate Sodium 70 MG 1 tab(s) orally once a week; Duration: 90 days Active Peridex 0.12 % 15 mL orally 2 times a day; Duration: 30 days 12/31/2022 Active Baclofen 10 MG 1 tab(s) orally 3 times a day; Duration: 90 days Active Multivitamin MULTIPLE VITAMINS 1 CAP(S) ORALLY ONCE A DAY *Please review and pick correct strength-formulatio n from [facility] options. If intended option is not shown, discontinue and re-order from Quick Search* Active Methocarbamol 500 MG 1-2 tab(s) orally 3 times a day; Duration: 5 day(s) 03/26/2020 Active Xarelto 20 MG 1 tab(s) orally once a day (in the evening); Duration: 90 days Active Aspirin 81 MG 1 tab(s) orally once a day Active Lisinopril 20 MG 1 tab(s) orally once a day; Duration: 90 days Active OS-EHSAN 500 1250 MG 1 TAB(S) ORALLY BID *Please review for potential replacement for e-prescription and drug interaction check* Active Pravastatin Sodium 80 MG 1 tab(s) orally once a day; Duration: 90 days Active Doxycycline Monohydrate 100 MG 1 cap(s) orally 2 times a day; Duration: 7 days 05/05/2024 Active Pantoprazole Sodium 40 MG 1 tab(s) orally twice a day; Duration: 90 days Active Benzonatate 200 MG 1 cap(s) orally 3 times a day; Duration: 5 days 05/05/2024 Active Isosorbide Mononitrate ER 60 MG 1 tab(s) orally once a day (in the morning); Duration: 90 days Active HYDROcodone-Acetamino phen 7.5-325 MG 1 tab(s) orally every 6 hours; Duration: 30 days 05/11/2024 Active Furosemide 40 MG 1 tab(s) orally once a day; Duration: 90 days 04/25/2024 Active Encounters Encounter Location Date Provider Diagnosis [facility] PED [facility] [address] [facility] [address] [place] [address] 05/27/2024 Provider Migration Chronic pain syndrome G89.4 and Bronchitis J40 Assessments Encounter Date Diagnosis (ICD Code) Assessment Notes Treatment Notes Treatment Clinical Notes Section Notes 05/27/2024 Chronic pain syndrome (ICD-10 - G89.4) 05/27/2024 Bronchitis (ICD-10 - J40) Plan Of Treatment Medication Medication Name Sig Start Date Stop Date Notes Xarelto 20 MG 1 tab(s) orally once a day (in the evening); Duration: 90 days Lisinopril 20 MG 1 tab(s) orally once a day; Duration: 90 days Pravastatin Sodium 80 MG 1 tab(s) orally once a day; Duration: 90 days Doxycycline Monohydrate 100 MG 1 cap(s) orally 2 times a day; Duration: 7 days 05/05/2024 Pantoprazole Sodium 40 MG 1 tab(s) orall y twice a day; Duration: 90 days Benzonatate 200 MG 1 cap(s) orally 3 ti mes a day; Duration: 5 days 05/05/2024 Isosorbide Mononitrate ER 60 MG 1 tab(s) orally once a day (in the morning); Duration: 90 days HYDROcodone-Acetaminophen 7.5-325 MG 1 tab(s) orally every 6 hours; Duration: 30 days 05/11/2024 Next Appt Details Provider Name:Jose Mendoza, 02/27/2025 10:00:00 AM, [address] [place] [address], [phone], Progress Notes * Jorge TIMeDOB:1945 (79 yo F)Acc No.[id number]:05/27/2024 Patient: Gina MARTINEZ Provider: Rain Araujo :1945 A ge:79 Y S ex:Female Date:05/27/2024 Address:[address] [place], [place] [phone] Pcp:Jose Mendoza Subjective: * Chief Complaints: * 1 . Multum To Medispan Conversion Encounter. * Medical History: * Medications: T aking Aspirin 81 MG Tablet Delayed Release 1 tab(s) orally once a day , Taking OS-EHSAN 500 1250 MG TABLET 1 TAB(S) ORALLY BID , Notes to Pharmacist: *Please review for potential replacement for e-prescription and drug interaction check*, Taking Multivitamin MULTIPLE VITAMINS CAPSULE 1 CAP(S) ORALLY ONCE A DAY , Notes to Pharmacist: *Please review and pick [facility]. If intended option is not shown, discontinue and re-order from Quick Search*, Taking Methocarbamol 500 MG Tablet 1-2 tab(s) orally 3 times a day , Taking Baclofen 10 MG Tablet 1 tab(s) orally 3 times a day , Taking Alendronate Sodium 70 MG Tablet 1 tab(s) orally once a week , Taking Peridex 0.12 % Solution 15 mL orally 2 times a day , Taking Fluticasone Propionate 50 MCG/ACT Suspension 1 spray(s) in each nostril 2 times a day , Taking Triamcinolone Acetonide 0.5 % Ointment 1 emigdio applied topically 2 times a day , Taking FeroSul 325 (65 Fe) MG Tablet TAKE 1 TABLET TWICE DAILY , Taking Gemtesa 75 MG Tablet TAKE 1 TABLET EVERY DAY , Taking NEBIVOLOL 10 MG TABLET TAKE 1 TABLET EVERY DAY , Notes to Pharmacist: *Please review for potential replacement for e-prescription and drug interaction check*, Taking Furosemide 40 MG Tablet 1 tab(s) orally once a day * Allergies: T amiflu: dizziness. Objective: * Vitals: Assessment: * Assessment: 1. B anthony - J40 (Primary) 2 . C hronic [...] a day, 90 days, 180, Refills 1. * * Electronic signature of Prov ider Migration on 02/13/2025 at 10:37 AM EST Sign off status: Pending * Provider: Rain small Migration Date: 0 05/27/2024 Generated for Maico mullen/Valentin/Jessica on: 1 04/16/2024 10:37 AM EST
--- OUTSIDE RECORDS SUMMARY | 2024-08-17 06:45 | XMS_ITS ---
Author Organization [facility] Address [address] [place] [address] Care Team Providers Care Manager Meeting Name Role Phone Jose Mendoza Primary Care Provider REASON FOR VISIT er fu Encounters Encounter Location Date Provider Diagnosis [facility] [address] [address] 08/17/2024 oJse Mendoza Plan Of Treatment Next Appt Details Provider Name:Jose Mendoza, 02/27/2025 10:00:00 AM, [address] [place] [address], [phone], Progress Notes * Jorge TIMeDOB:1945 (79 yo F)Acc No.[id number]:08/17/2024 Progress Notes Patient: Gina MARTINEZ Provider: Abdelrahman Mendoza MD :1945 A ge:79 Y S ex:Female Date:08/17/2024 Address:[address] [place] Subjective: * Chief Complaints: * 1 . Er fu. * Medical History: Objective: * Vitals: Assessment: Plan: * Treatment: * * Electronic signature of Junaid Mendoza MD FAAP on 02/13/2025 at 10:37 AM EST Sign off status: Pending * Provider: Abdelrahman Mendoza MD Date: 0 08/17/2024 Generated for Printi ng/Valentin/Mahoganyitting on: 1 04/16/2024 10:37 AM EST
--- OUTSIDE RECORDS SUMMARY | 2025-01-09 11:39 | XMS_ITS | Encounter Summary ---
Author Organization [facility] Address [address] [place] [address] Care Team Providers Care Sports Betting Manager Name Role Phone Jose Mendoza MD Primary Care Provider [phone] Reason for Referral * Imaging (Routine) - Closed Specialty Diagnoses / Procedures Referred By Contac t Referred To Contact Radiology Diagnoses Malignant neoplasm of ascending colon (CMS/HCC) Procedures CT Abdomen Pelvis w IV Contrast Mata Smalls MD [address] [address] Phone: tel: fax: Referral ID Status Reason Start Date Expiration Date Visits Re quested Visits Authorized [id number] Closed 08/17/2024 02/16/2026 1 1 * Imaging (Routine) - Closed Specialty Diagnoses / Procedures Referred By Contac t Referred To Contact Radiology Diagnoses Malignant neoplasm of ascending colon (CMS/HCC) Procedures CT Chest w IV Contrast Mata Smalls MD [address] [address] Phone: tel: fax: Referral ID Status Reason Start Date Expiration Date Visits Re quested Visits Authorized [id number] Closed 08/17/2024 02/16/2026 1 1 Reason for Visit * Imaging (Routine) - Closed Specialty Diagnoses / Procedures Referred By Contac t Referred To Contact Radiology Diagnoses Malignant neoplasm of ascending colon (CMS/HCC) Procedures CT Abdomen Pelvis w IV Contrast Mata Smalls MD [address] [place] [address] Phone: tel: fax: Referral ID Status Reason Start Date Expiration Date Visits Re quested Visits Authorized [id number] Closed 08/17/2024 02/16/2026 1 1 Encounter Details Date Type Department Care Team (Latest Contact Info) Description 01/09/2025 11:39 AM EST - 01/09/2025 11:59 PM EST Hospital Encounter [facility] [address] [place] [address] Malignant neoplasm of ascending colon (CMS/HCC) Discharge Disposition: Home or Self [...] time in the past 12 m [facility], were you homeless or living in a long term (including now)? No 07/11/2024 Utilities Answer Date [...] 1 tablet by mouth daily. HYDROcodone-acetamin ophen (Fowler) 7.5-325 MG tablet Take 1 tablet by mouth every 6 hours. 09/18/2023 isosorbide mononitrate ER (Imdur) 60 MG 24 hr tablet Take 1 tablet by mouth daily. 05/17/2024 lisinopril 20 MG tablet Take 1 tablet by mouth daily. naloxone (Narcan) 4 mg/0.1 mL nasal spray [...] by mouth 2 times a day. 05/23/2024 potassium chloride CR (Klor-Con) 10 MEQ ER tablet Take 1 tablet by mouth daily. 08/18/2024 pravastatin (Pravachol) 80 MG tablet Take 1 tablet by mouth daily. 05/16/2024 pregabalin (Lyrica) 75 MG capsule Take 1 capsule by mouth 2 times a day. 03/16/2024 Vibegron (Gemtesa) 75 MG tablet Take 75 mg by mouth daily. documented as of this encounter Miscellaneous Notes * Procedures - Vangie Winn RN - 01/09/2025 12:00 PM ESTAssociated Order(s): Insert peripheral IV Post-Procedure Diagnose(s): Malignant neoplasm of ascending colon (CMS/HCC) Insert peripheral IV Performed by: Glory Velasquez RN Authorized by: Mata Smalls MD Hand hygiene: Hand hygiene performed prior to insertion Inserted using aseptic techniques: Yes Preparation: Skin prepped with alcohol Orientation: Left Location: Antecubital Catheter placed: Peripheral IV Catheter size: 20 gauge Line Technique: Ultrasound Guidance Number of attempts: 1 IV flushes: Without difficulty and positive blood return noted and IV luer locked Patient tolerance: Patient tolerated the procedure well and there were no complications IV site covered with: Transparent semipermeable dressing Education provided to: Patient Assistance other than newspaper inserter: X1 * Irene Duran - 01/09/2025 11:49 AM EST Images from the original note were not included. 1639 Caring for Yourself after Contrast Imaging If you had ORAL contrast: ? You can go back to your normal diet and activities as tolerated. ? Drink plenty of fluids, unless told otherwise. If you had IV contrast: ? You can go back to your normal diet and activities as tolerated. ? Drink plenty of fluids, unless told otherwise. ? Leave a bandage on the site for 30 minutes (where the IV was inserted or blood was drawn). If you had Intravesical (bladder) contrast: ? Return to normal diet and activity. What you need to know about delayed reaction to IV contrast What is IV Contrast? ? Contrast is a dye that is put into your body through an IV. ? It is used for imaging scans such as CT scans and MRIs. ? The contrast makes blood vessels, organs and other parts of your body show up better on the scan. What do I need to do after IV contrast? ? Drink lots of fluids. This will help flush the contrast out of your system. ? Drink 2-3 extra glasses or bottles of water within 4 hours of your scan. What is a contrast reaction? ? A contrast reaction is a bad side effect from the contrast dye. ? It is rare but it does happen. ? They can be mild - such as sneezing, itching, or hives. ? They can be severe - such as trouble breathing, throat swelling, and irregular heart beat. When do these reactions happen? ? They often happen right after the contrast is injected. ? Some happen hours after going home. Go to the nearest Emergency Department right away if you have any of these symptoms after you leavethe clinic or hospital. ? Sneezing ? Itching in your mouth, throat, eyes, ears, or skin ? Rash or hives ? Throwing up or stomach sickness ? High heart rate or ?racing? of your heart ? Feeling dizzy or woozy ? Feeling short of breath or like you can?t take a deep breath ? Feeling very anxious for no other reason [...] Department Care Team (Latest Contact Info) Description 07/10/2025 12:00 PM EDT Appointment [facility] [address] [place] [address] 07/10/2025 2:30 PM EDT Office Visit [facility] [address] [place] [address] Mata Smalls MD [address] [place] [id number] 07/10/2025 2:30 PM EDT Clinical Support [facility] [address] [place] [address] documented as of this encounter Procedures Procedure Name Priority Date/Time Associated Diagnosis Comments CT ABDOMEN PELVIS W IV CONTRAST Routine 01/09/2025 12:43 PM EST Malignant neoplasm of ascending colon (CMS/HCC) CT CHEST W IV CONTRAST Routine 01/09/2025 12:43 PM EST Malignant neoplasm of ascending colon (CMS/HCC) INSERT PERIPHERAL IV Routine 01/09/2025 12:00 PM EST Malignant neoplasm of ascending colon (CMS/HCC) documented in this encounter Results * CT Abdomen Pelvis w IV Contrast (01/09/2025 12:43 PM EST) Anatomical Region Laterality Modality Abdomen, Pelvis Computed Tomogra phy Impressions 01/17/2025 11:37 AM EST Chest: No metastatic disease within the chest. ABDOMEN: Postsurgical changes of interval right hemicolectomy with ileocolic anastomosis without evidence of local disease recurrence. Unchanged indeterminate bilateral adrenal nodules most likely represent benign adenomas. Unchanged subcentimeter hypodensity in the left lobe of the liver, most likely benign. CRITICAL RESULT: No. COMMUNICATION: Per this written report. By electronically signing this report, I, the attending physician, attest that I have personally reviewed the images/data for the above examination(s) and agree with the final edited report. Drafted by Jhon Castro MD on 01/09/2025 1:30 PM Final report signed by Pola Duval MD on 01/09/2025 3:00 PM Narrative 01/17/2025 11:37 AM EST CLINICAL INDICATION: colon cancer TECHNIQUE: Multiple axial CT images were obtained from thoracic inlet through pubic symphysis following administration of IV contrast, Omni 300, 100 mL. Reformatted images of the abdomen and pelvis in the coronal and sagittal planes were generated from the axial data set to facilitate diagnostic accuracy. Total DLP (Dose-Length Product): 767.49 mGy.cm. Please note: The reported value represents the total of one or more individual components during the CT acquisition on this date and at this time, and as such, the same value may appear in more than one CT report depending on the interpreting/reporting physicians. COMPARISON: CT chest was performed 06/20/2024 FINDINGS: Chest: Lymph Nodes: No enlarged lymph nodes by CT size criteria. Thyroid: No suspicious thyroid findings. Cardiovascular: Dual-lead pacemaker present. Redemonstration of mitral valve calcification. Multivessel coronary calcification. No pericardial effusion. Lungs: Bibasilar dependent atelectasis. No suspicious lung nodules. There is a small triangular nodule along the right minor fissure, most likely benign. Pleura: No pleural effusion or suspicious pleural thickening. Musculoskeletal and Body Wall: No acute fractures. No suspicious osseous or soft tissue lesions. Abdomen/Pelvis: Liver, Gallbladder, Biliary Tract: Subcentimeter hypodensity in the left lobe of the liver appears smaller than prior, too small to characterize. Abnormal overall liver morphology with a small left lobe. No surface nodularity or other morphologic changes consistent with cirrhosis. Unremarkable gallbladder. No intra or extrahepatic biliary ductal dilatation. Spleen: Few calcified granulomas, otherwise unremarkable. Pancreas: Unremarkable. No pancreatic ductal dilatation. Adrenal Glands: Redemonstration of right adrenal nodule, measuring 22 mm which is unchanged or smaller from prior. 2 small left adrenal nodules, unchanged from prior. These are indeterminate, but most likely represent benign adenomas. Kidneys: Atrophic left kidney. Small bilateral inferior pole renal cysts. Lymph Nodes: No enlarged lymph nodes by CT size criteria. Vasculature: Diffuse aortobiiliac calcific atherosclerosis. Circumaortic left renal vein. GI Tract: Postsurgical changes of interval right hemicolectomy with ileocolic anastomosis. No abnormal large or small bowel dilatation. No suspicious bowel wall thickening. Colonic diverticulosis without evidence of diverticulitis.Small duodenal diverticulum. Mesentery/Peritoneum: No abnormal thickening or nodules. Pelvic Viscera: The bladder is decompressed but otherwise unremarkable. Uterus is surgically absent. No suspicious pelvic mass lesions. Free Fluid: No free fluid within the abdomen or pelvis Musculoskeletal and Body Wall: Slight compression deformity of L1, L3, and L5, similar to prior. Partially visualized right femoral intramedullary francis. No acute fracture. No obvious aggressive bony lesions. Procedure Note Pola Duval MD - 01/17/2025 CLINICAL INDICATION: colon cancer TECHNIQUE: Multiple axial CT images were obtained from thoracic inlet through pubicsymphysis following administration of IV contrast, Omni 300, 100 mL.Reformatted images of the abdomen and pelvis in the coronal and sagittalplanes were generated from the axial data set to facilitate diagnosticaccuracy. Total DLP (Dose-Length Product): 767.49 mGy.cm. Please note: The reportedvalue represents the total of one or more individual components during theCT acquisition on this date and at this time, and as such, the same valuemay appear in more than one CT report depending on theinterpreting/reporting physicians. COMPARISON: CT chest was performed 06/20/2024 FINDINGS: Chest: Lymph Nodes: No enlarged lymph nodes by CT size criteria. Thyroid: No suspicious thyroid findings. Cardiovascular: Dual-lead pacemaker present. Redemonstration of mitralvalve calcification. Multivessel coronary calcification. No pericardialeffusion. Lungs: Bibasilar dependent atelectasis. No suspicious lung nodules. Thereis a small triangular nodule along the right minor fissure, most likelybenign. Pleura: No pleural effusion or suspicious pleural thickening. Musculoskeletal and Body Wall: No acute fractures. No suspicious osseousor soft tissue lesions. Abdomen/Pelvis: Liver, Gallbladder, Biliary Tract: Subcentimeter hypodensity in the leftlobe of the liver appears smaller than prior, too small to characterize.Abnormal overall liver morphology with a small left lobe. No surfacenodularity or other morphologic changes consistent with cirrhosis.Unremarkable gallbladder. No intra or extrahepatic biliary ductaldilatation. Spleen: Few calcified granulomas, otherwise unremarkable. Pancreas: Unremarkable. No pancreatic ductal dilatation. Adrenal Glands: Redemonstration of right adrenal nodule, measuring 22 mmwhich is unchanged or smaller from prior. 2 small left adrenal nodules,unchanged from prior. These are indeterminate, but most likely representbenign adenomas. Kidneys: Atrophic left kidney. Small bilateral inferior pole renalcysts. Lymph Nodes: No enlarged lymph nodes by CT size criteria. Vasculature: Diffuse aortobiiliac calcific atherosclerosis. Circumaorticleft renal vein. GI Tract: Postsurgical changes of interval right hemicolectomy withileocolic anastomosis. No abnormal large or small bowel dilatation. Nosuspicious bowel wall thickening. Colonic diverticulosis without evidenceof diverticulitis.Small duodenal diverticulum. Mesentery/Peritoneum: No abnormal thickening or nodules. Pelvic Viscera: The bladder is decompressed but otherwise unremarkable.Uterus is surgically absent. No suspicious pelvic mass lesions. Free Fluid: No free fluid within the abdomen or pelvis Musculoskeletal and Body Wall: Slight compression deformity of L1, L3, andL5, similar to prior. Partially visualized right femoral intramedullaryrod. No acute fracture. No obvious aggressive bony lesions. IMPRESSION: Chest: No metastatic disease within the chest. ABDOMEN: Postsurgical changes of interval right hemicolectomy with ileocolicanastomosis without evidence of local disease recurrence. Unchanged indeterminate bilateral adrenal nodules most likely representbenign adenomas. Unchanged subcentimeter hypodensity in the left lobe of the liver, mostlikely benign. CRITICAL RESULT: No. COMMUNICATION: Per this written report. By electronically signing this report, I, the attending physician, attestthat I have personally reviewed the images/data for the aboveexamination(s) and agree with the final edited report. Drafted by Jhon Castro MD on 01/09/2025 1:30 PM Final report signed by Pola Duval MD on 01/09/2025 3:00 PM us Mata Smalls MD IMG CT PROCEDURES Final Result * CT Chest w IV Contrast (01/09/2025 12:43 PM EST) Anatomical Region Laterality Modality Chest Computed Tomogra phy Impressions 01/09/2025 3:00 PM EST Chest: No metastatic disease within the chest. ABDOMEN: Postsurgical changes of interval right hemicolectomy with ileocolic anastomosis without evidence of local disease recurrence. Unchanged indeterminate bilateral adrenal nodules most likely represent benign adenomas. Unchanged subcentimeter hypodensity in the left lobe of the liver, most likely benign. CRITICAL RESULT: No. COMMUNICATION: Per this written report. By electronically signing this report, I, the attending physician, attest that I have personally reviewed the images/data for the above examination(s) and agree with the final edited report. Drafted by Jhon Castro MD on 01/09/2025 1:30 PM Final report signed by Pola Duval MD on 01/09/2025 3:00 PM Narrative 01/09/2025 3:00 PM EST CLINICAL INDICATION: colon cancer TECHNIQUE: Multiple axial CT images were obtained from thoracic inlet through pubic symphysis following administration of IV contrast, Omni 300, 100 mL. Reformatted images of the abdomen and pelvis in the coronal and sagittal planes were generated from the axial data set to facilitate diagnostic accuracy. Total DLP (Dose-Length Product): 767.49 mGy.cm. Please note: The reported value represents the total of one or more individual components during the CT acquisition on this date and at this time, and as such, the same value may appear in more than one CT report depending on the interpreting/reporting physicians. COMPARISON: CT chest was performed 06/20/2024 FINDINGS: Chest: Lymph Nodes: No enlarged lymph nodes by CT size criteria. Thyroid: No suspicious thyroid findings. Cardiovascular: Dual-lead pacemaker present. Redemonstration of mitral valve calcification. Multivessel coronary calcification. No pericardial effusion. Lungs: Bibasilar dependent atelectasis. No suspicious lung nodules. There is a small triangular nodule along the right minor fissure, most likely benign. Pleura: No pleural effusion or suspicious pleural thickening. Musculoskeletal and Body Wall: No acute fractures. No suspicious osseous or soft tissue lesions. Abdomen/Pelvis: Liver, Gallbladder, Biliary Tract: Subcentimeter hypodensity in the left lobe of the liver appears smaller than prior, too small to characterize. Abnormal overall liver morphology with a small left lobe. No surface nodularity or other morphologic changes consistent with cirrhosis. Unremarkable gallbladder. No intra or extrahepatic biliary ductal dilatation. Spleen: Few calcified granulomas, otherwise unremarkable. Pancreas: Unremarkable. No pancreatic ductal dilatation. Adrenal Glands: Redemonstration of right adrenal nodule, measuring 22 mm which is unchanged or smaller from prior. 2 small left adrenal nodules, unchanged from prior. These are indeterminate, but most likely represent benign adenomas. Kidneys: Atrophic left kidney. Small bilateral inferior pole renal cysts. Lymph Nodes: No enlarged lymph nodes by CT size criteria. Vasculature: Diffuse aortobiiliac calcific atherosclerosis. Circumaortic left renal vein. GI Tract: Postsurgical changes of interval right hemicolectomy with ileocolic anastomosis. No abnormal large or small bowel dilatation. No suspicious bowel wall thickening. Colonic diverticulosis without evidence of diverticulitis.Small duodenal diverticulum. Mesentery/Peritoneum: No abnormal thickening or nodules. Pelvic Viscera: The bladder is decompressed but otherwise unremarkable. Uterus is surgically absent. No suspicious pelvic mass lesions. Free Fluid: No free fluid within the abdomen or pelvis Musculoskeletal and Body Wall: Slight compression deformity of L1, L3, and L5, similar to prior. Partially visualized right femoral intramedullary francis. No acute fracture. No obvious aggressive bony lesions. Procedure Note Pola Duval MD - 01/17/2025 CLINICAL INDICATION: colon cancer TECHNIQUE: Multiple axial CT images were obtained from thoracic inlet through pubicsymphysis following administration of IV contrast, Omni 300, 100 mL.Reformatted images of the abdomen and pelvis in the coronal and sagittalplanes were generated from the axial data set to facilitate diagnosticaccuracy. Total DLP (Dose-Length Product): 767.49 mGy.cm. Please note: The reportedvalue represents the total of one or more individual components during theCT acquisition on this date and at this time, and as such, the same valuemay appear in more than one CT report depending on theinterpreting/reporting physicians. COMPARISON: CT chest was performed 06/20/2024 FINDINGS: Chest: Lymph Nodes: No enlarged lymph nodes by CT size criteria. Thyroid: No suspicious thyroid findings. Cardiovascular: Dual-lead pacemaker present. Redemonstration of mitralvalve calcification. Multivessel coronary calcification. No pericardialeffusion. Lungs: Bibasilar dependent atelectasis. No suspicious lung nodules. Thereis a small triangular nodule along the right minor fissure, most likelybenign. Pleura: No pleural effusion or suspicious pleural thickening. Musculoskeletal and Body Wall: No acute fractures. No suspicious osseousor soft tissue lesions. Abdomen/Pelvis: Liver, Gallbladder, Biliary Tract: Subcentimeter hypodensity in the leftlobe of the liver appears smaller than prior, too small to characterize.Abnormal overall liver morphology with a small left lobe. No surfacenodularity or other morphologic changes consistent with cirrhosis.Unremarkable gallbladder. No intra or extrahepatic biliary ductaldilatation. Spleen: Few calcified granulomas, otherwise unremarkable. Pancreas: Unremarkable. No pancreatic ductal dilatation. Adrenal Glands: Redemonstration of right adrenal nodule, measuring 22 mmwhich is unchanged or smaller from prior. 2 small left adrenal nodules,unchanged from prior. These are indeterminate, but most likely representbenign adenomas. Kidneys: Atrophic left kidney. Small bilateral inferior pole renalcysts. Lymph Nodes: No enlarged lymph nodes by CT size criteria. Vasculature: Diffuse aortobiiliac calcific atherosclerosis. Circumaorticleft renal vein. GI Tract: Postsurgical changes of interval right hemicolectomy withileocolic anastomosis. No abnormal large or small bowel dilatation. Nosuspicious bowel wall thickening. Colonic diverticulosis without evidenceof diverticulitis.Small duodenal diverticulum. Mesentery/Peritoneum: No abnormal thickening or nodules. Pelvic Viscera: The bladder is decompressed but otherwise unremarkable.Uterus is surgically absent. No suspicious pelvic mass lesions. Free Fluid: No free fluid within the abdomen or pelvis Musculoskeletal and Body Wall: Slight compression deformity of L1, L3, andL5, similar to prior. Partially visualized right femoral intramedullaryrod. No acute fracture. No obvious aggressive bony lesions. IMPRESSION: Chest: No metastatic disease within the chest. ABDOMEN: Postsurgical changes of interval right hemicolectomy with ileocolicanastomosis without evidence of local disease recurrence. Unchanged indeterminate bilateral adrenal nodules most likely representbenign adenomas. Unchanged subcentimeter hypodensity in the left lobe of the liver, mostlikely benign. CRITICAL RESULT: No. COMMUNICATION: Per this written report. By electronically signing this report, I, the attending physician, attestthat I have personally reviewed the images/data for the aboveexamination(s) and agree with the final edited report. Drafted by Jhon Castro MD on 01/09/2025 1:30 PM Final report signed by Pola Duval MD on 01/09/2025 3:00 PM Mata Smalls MD IMG CT PROCEDURES Final Result * PERIPHERAL IV (SMARTFORM LINK) (01/09/2025 12:00 PM EST) Narrative Vangie Winn, RN - 01/09/2025 12:00 PM EST Vangie Winn RN 01/09/2025 12:26 PM Insert peripheral IV Performed by: Glory Velasquez RN Authorized by: Mata Smalls MD Hand hygiene: Hand hygiene performed prior to insertion Inserted using aseptic techniques: Yes Preparation: Skin prepped with alcohol Orientation: Left Location: Antecubital Catheter placed: Peripheral IV Catheter size: 20 gauge Line Technique: Ultrasound Guidance Number of attempts: 1 IV flushes: Without difficulty and positive blood return noted and IV luer locked Patient tolerance: Patient tolerated the procedure well and there were no complications IV site covered with: Transparent semipermeable dressing Education provided to: Patient Assistance other than newspaper inserter: X1 Mata Smalls MD IV THERAPY ORDERABLES Final Re sult documented in this encounter Visit Diagnoses Diagnosis Malignant neoplasm of ascending colon (CMS/HCC) Malignant neoplasm of ascending colon documented in this encounter Administered Medications Inactive Administered Medications - up to 3 most recent administrations Medication Order MAR Action Action Date Dose Rate Site iohexol (OMNIPaque) 300 MG/ML injection 100 mL 100 mL, Intravenous, Once in imaging, 1 dose, Starting on Wed01/09/25 at 1149, Until Wed01/09/25 at 1224, Routine, Imaging Protocol Orders Given 01/09/2025 12:24 PM EST 100 mL iohexol (OMNIPaque) 9 MG/ML oral contrast 500 mL 500 mL, Oral, Once in imaging, 1 dose, Starting on Wed01/09/25 at 1149, Until Wed01/09/25 at 1221, Routine, Imaging Protocol Orders Given 01/09/2025 12:21 PM EST 200 mL documented in this encounter Additional Health Concerns Assessment Noted Time A fall risk assessment has been complete d for the patient 01/09/2025 2:50 PM EST A Body Mass Index follow-up plan has been documented for the patient 01/19/2025 11:45 AM EST documented as of this encounter Care Teams Sports Betting Manager Relationship Specialty Start Date End Date Jose Mendoza MD [facility] [id number] PCP - General Internal Medicine 05/23/24 documented as of this encounter
--- OUTSIDE RECORDS SUMMARY | 2025-01-09 14:30 | XMS_ITS | Encounter Summary ---
Author Organization [facility] Address [address] [place] [address] Care Team Providers Care Lead Fire Protection Engineer Name Role Phone Jose Mendoza MD Primary Care Provider Reason for Referral * Imaging (Routine) - Pending Review Specialty Diagnoses / Procedures Referred By Contac t Referred To Contact Radiology Diagnoses Malignant neoplasm of ascending colon (CMS/HCC) Procedures CT Abdomen Pelvis w IV Contrast Mata Smalls MD [address] [address] Phone: tel: fax: Referral ID Status Reason Start Date Expiration Date V isits Requested Visits Authorized [id number] Pending Review 01/09/2025 07/11/2026 1 1 * Imaging (Routine) - Pending Review Specialty Diagnoses / Procedures Referred By Contelvin t Referred To Contact Radiology Diagnoses Malignant neoplasm of ascending colon (CMS/HCC) Procedures CT Chest w IV Contrast Mata Smalls MD [address] [address] Phone: tel: fax: Referral ID Status Reason Start Date Expiration Date V isits Requested Visits Authorized [id number] Pending Review 01/09/2025 07/11/2026 1 1 Reason for Visit * Reason Comments Colon Cancer Encounter Details Date Type Department Care Team (Latest Contact Info) Description 01/09/2025 2:30 PM EST Office Visit [facility] [address] [place] [address] Mata Smalls MD [address] [place] [phone] Malignant neoplasm of ascending colon (CMS/HCC) (Primary [...] any time in the past 12 m [facility], were you homeless or living [...] 2:48 PM EST documented in this encounter Miscellaneous Notes * Progress Notes - Pete Castlilo - 01/09/2025 2:30 PM EST [facility] Colon & Rectal Surgery 01/09/2025 Chief [...] Gina Stone is a 79 y.o. female (PMH heart failure s/p heart catheterization, HTN, arthritis, [...] saw and evaluated the patient with the medical/QM CONSULTANT/PA student. I discussed the case with the medical/QM CONSULTANT/PA student and agree with the findings and plan as documented. I personally performed the Examand Medical Decision Making. documented in this encounter Plan of Treatment Upcoming Encounters Date Type Department Care Team (Latest Contact Info) Description 07/10/2025 12:00 PM EDT Appointment [facility] [address] [place] [address] 07/10/2025 2:30 PM EDT Office Visit [facility] Mult[facility]isciplinary Oncology Clinic [address] [place] [address] Mata Smalls MD [address] [place] [address] 07/10/2025 2:30 PM EDT Clinical Support [facility]cology [facility] [address] [place] [address] Scheduled Orders Name Type Priority Associated Diagnoses [...] documented as of this encounter Care Teams Lead Fire Protection Engineer Relationship Specialty Start Date End Date Jose Mendoza MD [facility] [phone] PCP - General Internal Medicine 05/23/24 documented as of this encounter
--- OUTSIDE RECORDS SUMMARY | 2025-02-08 11:30 | XMS_ITS | Encounter Summary ---
[facility] Address [address] [place] [address] Care Team Providers Care Market Stall Vendor Name Role Phone Jose Mendoza MD Primary Care Provider [phone] Reason for Referral * Diagnostic Imaging (Routine) - Pending Review Specialty Diagnoses / Procedures Referred By Contac t Referred To Contact Diagnoses Chronic diastolic heart failure Nonrheumatic mitral valve regurgitation Procedures Adult Transthoracic Echo Complete W/ Cont if Necessary Per Protocol Ayesha Galo APRN [address] [place] [address] [place] [address] Phone: tel: fax: [facility] [address] [place] [phone] Phone: tel: fax: Referral ID Status Reason Start Date Expiration Date V isits Requested Visits Authorized [id number] Pending Review 02/08/2025 05/10/2026 1 1 Reason for Visit [...] Description 02/08/2025 11:30 AM EST Office Visit [address] [place] [phone] Seivers, Ayesha W, LIVESTOCK FARM MANAGER [address] [place] [address] Chronic diastolic heart failure (Primary Dx); Nonrheumatic mitral valve regurgitation; Coronary artery disease involving wales coronary artery of wales heart without angina pectoris; Dyspnea on exertion [...] this encounter Progress Notes * Ayesha Galo, LIVESTOCK FARM MANAGER - 02/08/2025 11:30 AM EST Images from [...] 3. Carotid artery disease-mild 4. Hypertension 03/21/2024 [facility]- Non-flow limiting coronary disease. Widely patent LAD, [...] radial access; Surgeon: Dewayne Rios MD; Location: [facility] INVASIVE LOCATION; Service: Cardiovascular; Laterality: N/A; CATARACT [...] Protocol; Future 3. Coronary artery disease involving wales coronary artery of wales heart without angina pectoris - Comprehensive Metabolic [...] breath . Patient or patient sales representative sales manager verbalized consent for the use of Ambient [...] Description 02/27/2025 12:30 PM EST Ancillary Procedure [facility] [address] [place] [address] [place] [phone] 03/14/2025 1:30 PM EST Office Visit [facility] [address] [place] [address] [place] [phone] Nancy Giron APRN [address] [place] [address] 06/04/2025 10:45 AM EDT Office Visit [facility] [address] [place] [address] [place] [phone] Reanna Krishnamurthy MD [address] [place] [address] [place] [address] 06/04/2025 10:45 AM EDT Clinical Support No Requirements [facility] [address] [place] [address] [place] [phone] Scheduled Orders Name Type Priority Associated Diagnoses Orde r Schedule Adult Transthoracic Echo Complete W/ Cont if Necessary Per Protocol Echocardiography Routine Chronic diastolic heart failure Nonrheumatic mitral valve regurgitation Expected: 03/08/2025, Expires: 02/08/2026 Comprehensive Metabolic Panel Lab Routine Chronic diastolic heart failure Coronary artery disease involving wales coronary artery of wales heart without angina pectoris Dyspnea on exertion Expected: 02/22/2025 (Approximate), Expires: 02/08/2026 CBC & Differential Lab Panel Routine Chronic diastolic heart failure Coronary artery disease involving wales coronary artery of wales heart without angina pectoris Dyspnea on exertion Expected: 02/22/2025 (Approximate), Expires: 02/08/2026 proBNP Lab Routine Chronic diastolic heart failure Coronary artery disease involving wales coronary artery of wales heart without angina pectoris Dyspnea on exertion Expected: 02/22/2025 (Approximate), Expires: 02/08/2026 Magnesium Lab Routine Chronic diastolic heart failure Coronary artery disease involving wales coronary artery of wales heart without angina pectoris Dyspnea on exertion Expected: 02/22/2025 (Approximate), Expires: 02/08/2026 documented as of this encounter Visit Diagnoses Diagnosis Chronic diastolic heart failure- Primary Nonrheumatic mitral valve regurgitation Coronary artery disease involving wales coronary artery of wales heart without angina pectoris Dyspnea on exertion Other dyspnea and respiratory abnormality documented in this encounter Care Teams Market Stall Vendor Relationship Specialty Start Date End Date Jose Mendoza MD [facility] [address] [place] [facility] [address] PCP - General Adolescent Medicine 08/03/22 documented as of this encounter
--- OUTSIDE RECORDS SUMMARY | 2025-02-13 10:37 | XMS_ITS | Clinical Summary ---
[facility] [address] [place] [address] Care Team Providers Care Certified Indoor Environmentalist Name Role Phone Jose Mendoza MD Primary Care Provider [phone] Allergies Active Allergy Reactions Criticality Noted Date [...] 1 TABLET TWICE DAILY for 90 Active aspirin 81 MG chewable tablet Chew [...] (congestive heart failure),Beasley ry artery disease involving eklutna coronary artery of eklutna heart without angina pectoris Take 1 tablet by mouth Daily. 90 tablet 3 5 Active ipratropium-alb uterol (DUO-NEB) 0.5-2.5 mg/3 ml nebulizer INHALE 1 vial via NEBULIZER EVERY 8 HOURS 5 Active lisinopril (PRINIVIL,ZESTR [place]) 20 MG tablet 5 Active spironolactone (ALDACTONE) 50 MG tabletIndicatio ns:Chronic diastolic heart failure,Dyspnea on exertion Take 1 tablet by mouth Daily. 90 tablet 3 5 Active spironolactone (ALDACTONE) 50 MG tablet 1 tablet. 02/09/20 25 Discontin ued(Reord er) Active Problems Problem Noted Date Diagnosed Date Chronic diastolic heart failure 02/08/2025 Nonrheumatic mitral valve regurgitation 02/09/20 25 Precordial chest pain 03/08/2024 Assessment & Plan (03/30/2024 3:48 PM EST): Patient has nonflow-limiting coronary artery disease. She continues to report chest pressure and heaviness. Recent ER visit this week for the chest heaviness and shortness of breath. Patient has chronic shortness of breath Assessment & Plan (03/08/2024 6:17 PM EST): As above. This does not sound GI in nature. Orders: Case Request Client Retention Specialist: Left Heart Cath Dyspnea on exertion 01/31/2024 [...] diuretics. Plans to get legs wrapped at [facility]. Assessment & Plan (08/18/2024 4:01 PM [...] diuretics. Plans to get legs wrapped at [facility]. Abdominal pain 11/18/2023 Assessment & Plan (12/08/2023 11:41 PM EDT): Nuclear stress test and Abd CT reviewed. Has GI follow-up at [facility] 12/28/23. Assessment & Plan (11/18/2023 3:01 [...] EDT): Patient had recent ER visit at [facility]. She was noted to have a [...] pacemaker check. Coronary artery disease invo lving eklutna coronary artery of eklutna heart without angina pectoris 04/05/2023 Assessment & [...] failure symptoms as well. Orders: Case Request Client Retention Specialist: Left Heart Cath Assessment & Plan (01/31/2024 [...] Encounters Date Type Department Care Team Description 02/08/2025 11:30 AM EST Office Visit [facility] [address] [place] [phone] Ayesha Galo APRN Chronic diastolic heart failure (Primary Dx); Nonrheumatic mitral valve regurgitation; Coronary artery disease involving eklutna coronary artery of eklutna heart without angina pectoris; Dyspnea on exertion 02/08/2025 Travel 12/04/2024 10:00 AM EDT Office Visit [facility] [place] [phone] Reanna Krishnamurthy MD Swelling of lower extremity (Primary Dx); Presence of cardiac pacemaker; Coronary artery disease involving eklutna coronary artery of eklutna heart without angina pectoris; Pre-operative cardiovascular examination 12/04/2024 Travel 11/15/2024 Telephone [facility] [place] [phone] Reanna Krishnamurthy MD 11/15/2024 Telephone [facility] [place] [phone] Reanna Krishnamurthy MD Waespe, Cristen K, MD- C.C from Last 3 Months Family History Medical History Relation Name Comments Lung cancer Brother 1 Arthritis Brother 2 Arthritis Brother 3 COPD Father Diabetes Mother Heart attack Mother Heart failure Sister 1 Accident Sister 2 Pancreatic cancer Sister 3 Heart attack Sister 4 Septic Sister 5 Relation Name Status Comments Brother 1 Brother 2 Alive Brother 3 Alive Father Mother Sister 1 Alive Sister 2 Sister 3 Sister 4 Sister 5 Social History Tobacco Use Types Packs/Day Years [...] Pulse 69 02/08/2025 11:34 AM EST Temperature 36.5 C (97.7 F) 03/21/2024 11:27 AM EST Respiratory Rate 16 03/21/2024 1:29 PM EST Oxygen Saturation 96% 02/08/2025 11:34 AM EST Inhaled Oxygen Concentration - - Weight 110 kg (242 lb 6.4 oz) 02/08/2025 11:34 A M EST Height 160 cm (5' 3 ) 02/08/2025 11:34 AM EST Body Mass Index 42.94 02/08/2025 11:34 AM EST Plan of Treatment Upcoming Encounters Date Type Department Care Team (Late st Contact Info) Description 02/27/2025 12:30 PM EST Ancillary Procedure [facility] [address] [place] [phone] 03/14/2025 1:30 PM EST Office Visit [facility] [address] [place] [phone] Nancy Giron APRN [address] [place] [address] 06/04/2025 10:45 AM EDT Office Visit [facility] [address] [place], [place] [phone] Reanna Krishnamurthy MD [address] [place] [address] 06/04/2025 10:45 AM EDT Clinical Support No Requirements [facility] [place] [phone] Health Maintenance Due Date Last Done Comments DXA SCAN 1945 ZOSTER VACCINE (1 of 2) 1993 RSV Vaccine - Adults (1 - 1- dose 75+ series) 2018 ANNUAL WELLNESS VISIT 07/17/2022 COVID-19 Vaccine (3 - 2024-2 6 season) 2024 12/26/2020, 05/02/2020 TDAP/TD VACCINES (2 - Td or Tdap) 04/22/2025 016, 12/20/1997 Pneumococcal Vaccine 50+ Completed 022, 01/22/2015, 11/01/2013 INFLUENZA VACCINE Completed 12/14/2024, , 12/08/2022, Additional history exists Medical Devices Implanted Type Area Watch Train Assembler Device Identifier Shelf Expiration Date Model / Serial / Lot Pacemaker Pacemaker Insurance [place] [employer] MEDIC[employer] ADVANTAGE SNP PPO Care Teams Certified Indoor Environmentalist Relationship Specialty Start Date End Date Jose Mendoza MD [address] [facility] [address] [place] [address] PCP - General Adolescent Medicine 08/03/22
--- OUTSIDE RECORDS SUMMARY | 2025-02-13 10:37 | XMS_ITS | Encounter Summary ---
Author Organization Healthcare Address [address] [place] [address] Care Team Providers Care Lodge Sales Associate Name Role Phone Jose Mendoza MD Primary Care Provider [phone] Reason for Visit * Reason Comments Distress Screen Follow-up Encounter Details Date Type Department Care Team (Late st Contact Info) Description 01/09/2025 Social Work [facility] [address] [place] [address] Jhon Naqvi [id number] Social History Tobacco Use Types Packs/Day Years [...] any time in the past 12 m [facility], were you homeless or living in a [...] encounter Miscellaneous Notes * Clinician Note - Jhon Naqvi - 01/09/2025 11:59 PM EST Encounter Type: Distress Follow Up - In Person Disease Status: Established Patient Clinic Location: [facility] Disease Type: Colon & Rectum Education Provided: Emotional/Physical Education & Materials, Financial Support/Aid, Lodging, Psych-Onc Services, Peer Support, Transportation Intervention Level: 3 Units (1 unit = 15 minutes): 2 Narrative: JIGSAW OPERATOR met with patient in clinic exam room during their regularly scheduled visit in regards to recent distress screen score. JIGSAW OPERATOR introduced himself and the nature of the visit, and inquiredabout patient's needs and wellbeing. Pt was present with her and daughter and stay during this visit. Pt reported she was doing well. JIGSAW OPERATOR provided education on psych-oncology services, including emotional and practical support, as well as dietitian and financial resources. Patient denied any needs at this time . JIGSAW OPERATOR provided the patient with his contact information for future reference and encouraged patient to follow up as needed. JIGSAW OPERATOR will be available for future resources and support. Bereket Naqvi Roll Setter RENATO Castanon, JIGSAW OPERATOR Psych-Oncology Services [facility] documented in this encounter Plan of Treatment Upcoming Encounters Date Type Department Care Team (Latest Contact Info) Description 07/10/2025 12:00 PM EDT Appointment [facility] [address] [place] [address] 07/10/2025 2:30 PM EDT Office Visit [facility] [address] [place] [phone] Mata Smalls MD [address] [place] [address] 07/10/2025 2:30 PM EDT Clinical Support [facility] [address] [place] [phone] documented as of this encounter Visit Diagnoses Not on filedocumented in this encounter Additional Health Concerns Assessment Noted Time A fall risk assessment has been complete d for the patient 01/09/2025 2:50 PM EST A Body Mass Index follow-up plan has been documented for the patient 01/19/2025 11:45 AM EST documented as of this encounter Care Teams Lodge Sales Associate Relationship Specialty Start Date End Date Jose Mendoza MD [facility] 2A [id number] PCP - General Internal Medicine 05/23/24 documented as of this encounter
--- OUTSIDE RECORDS SUMMARY | 2025-02-13 10:37 | XMS_ITS | Encounter Summary ---
Author Organization Healthcare Address [address] [place] [address] Care Team Providers Care Repairer Handtools Name Role Phone Jose Mendoza MD Primary Care Provider [phone] Encounter Details Date Type Department Care Team (Late st Contact Info) Description 01/10/2025 Lab Requisition [facility] [address] [place] [address] Mata Smalls MD [address] [place] [phone] Malignant neoplasm of colon, unspecified (CMS/HCC) Social History Tobacco Use Types Packs/Day Years [...] any time in the past 12 m [facility], were you homeless or living in [...] Info) Description 07/10/2025 12:00 PM EDT Appointment [facility] [address] [place] [phone] 07/10/2025 2:30 PM EDT Office Visit [facility] [address] [place] [address] Mata Smalls MD [address] [place] [phone] 07/10/2025 2:30 PM EDT Clinical Support [facility] [address] [place] [address] Pending Results Name Type Priority Associated Diagnoses Date /Time - AP Miscellaneous Test Lab Routine Malignant neoplasm of colon, unspecified (CMS/HCC) 01/10/2025 12:00 AM EST documented as of this encounter Visit Diagnoses Diagnosis Malignant neoplasm of colon, unspecified (CMS/HCC) documented in this encounter Additional Health Concerns Assessment Noted Time A fall risk assessment has been complete d for the patient 01/09/2025 2:50 PM EST A Body Mass Index follow-up plan has been documented for the patient 01/19/2025 11:45 AM EST documented as of this encounter Care Teams Repairer Handtools Relationship Specialty Start Date End Date Jose Mendoza MD [facility] 2A [id number] PCP - General Internal Medicine 05/23/24 documented as of this encounter
--- OUTSIDE RECORDS SUMMARY | 2025-02-13 10:37 | XMS_ITS | Patient Health Record ---
Author Organization [facility] PE D MAGAN Address [address] [place] [address] Care Team Providers Care Box Bender Name Role Phone Jose Mendoza Primary Care Provider Telma Francois Unavailable [phone] Migration, Provider Unavailable Unavailable Allergies Allergen (clinical drug ingredient) Drug/Non Drug Allergy documented on EMR Reaction Allergy Type Onset Date Status oseltamivir Tamiflu dizziness Drug Allergy Activ e Results Component Value Reference Range Notes X ray : Chest Reviewed date:11/08/2024 08:42:33 AM Interpretation: Performing Lab: Notes/Report: X ray : Chest Reviewed date:11/08/2024 08:42:33 AM Interpretation: Performing Lab: Notes/Report: M-Thyroid Stimulating Hormon e Reviewed date:11/06/2024 07:44:48 PM Interpretation: Performing Lab: Notes/Report: TSH 0.45 0.465-4.68 uIU/mL M-BNP Reviewed date:11/06/2024 07:44:48 PM Interpretation: Performing Lab: Notes/Report: BNPNTP 405 0-450 pg/mL M-Comprehensive Metabolic Pa ilana Reviewed date:11/06/2024 07:44:48 [...] AGRATIO 1.4 1.1-1.8 ALP 90 38-126 U/L M-Complete Blood Count Auto Diff Reviewed date:11/06/2024 [...] 0 IG% 0.1 NRBC# 0 IG# 0.01 Ultrasound : Abdomen Reviewed date:11/10/2024 10:18:28 AM Interpretation: Performing Lab: Notes/Report: LYME DISEASE AB W/REFL IA (I GG,IGM) (79795) Reviewed date:10/16/2024 09:04:29 AM Interpretation: Performing Lab:GRICELDA [facility],[address] [place] RiverQtedhknkorDT[address] Angelica Armijo MD,PhD,LESLY Notes/Report: NON-FASTING; NON-FASTING; NON-FASTING; [...] spirochetal diseases (e.g., syphilis) or infectious mononucleosis. CBC (INCLUDES DIFF/PLT) (639 9) Reviewed date:10/16/2024 09:04:29 AM Interpretation: Performing Lab:CB [facility] [address] [facility] [address], [facility] HospitalWblhEM[address] Dewayne Tamayo Notes/Report: NON-FASTING; NON-FASTING; NON-FASTING; NON-FASTING [...] MPV 12.2 7.5-12.5 fL ABSOLUTE NEUTROPHILS 3585 2256-5334 cells/uL ABSOLUTE LYMPHOCYTES 2023 850-3900 cells/uL ABSOLUTE MONOCYTES 864 200-950 cells/uL ABSOLUTE EOSINOPHILS 201 15-500 cells/uL ABSOLUTE BASOPHILS 27 0-200 cells/uL NEUTROPHILS 53.5 LYMPHOCYTES 30.2 MONOCYTES 12.9 EOSINOPHILS 3.0 BASOPHILS 0.4 IRON, TIBC AND FERRITIN PANE L (5616) Reviewed date:10/16/2024 09:04:29 AM Interpretation: Performing Lab:JOANN [employer], TRAKLOKTzplBP[address] Dewayne Tamayo Notes/Report: NON-FASTING; NON-FASTING; NON-FASTING; NON-FASTING IRON, TOTAL 58 45-160 mcg/dL IRON BINDING CAPACITY 342 250-450 mcg/dL (marielos c) % SATURATION 17 16-45 % (calc) FERRITIN 36 16-288 ng/mL RETICULOCYTE COUNT (793) Reviewed date:03/27/2024 10:28:09 AM Interpretation: Performing Lab:JOANN [employer] [address], TRAKLOKFrxxIM[address] Dewayne Tamayo Notes/Report: NON-FASTING; NON-FASTING; NON-FASTING; NON-FASTING; NON-FAST FASTING:NO FASTING: NO RETICULOCYTE COUNT, AUTOMATED 4.9 RETICULOCYTE, ABSOLUTE [id number] [address] cells/ uL COMPREHENSIVE METABOLIC PANE L (49930) Reviewed date:03/27/2024 10:28:09 AM Interpretation: Performing Lab:JOANN [employer] [address], TRAKLOKGgztPA[address] Dewayne Tamayo Notes/Report: NON-FASTING; NON-FASTING; NON-FASTING; NON-FASTING; [...] 12 6-29 U/L COMPREHENSIVE METABOLIC PANE L (67001) Reviewed date:03/09/2024 10:11:59 AM Interpretation: Performing Lab:JOANN, [employer] [employer], Transcarga.peLcfzQW[address] Dewayne Tamayo Notes/Report: NON-FASTING; NON-FASTING FASTING:NO FASTING: [...] 17 10-35 U/L ALT 12 6-29 U/L LIPID PANEL, STANDARD (7600) Reviewed date:03/09/2024 10:11:58 AM Interpretation: Performing Lab:JOANN [address], Children's MinnesotaEbtnMW[address] Dewayne Tamayo Notes/Report: NON-FASTING; NON-FASTING FASTING:NO FASTING: [...] of LDL-C. Alonzo SS et al. RITA. 2013;310(68): 1061-3198 (http://education.[employer].Bevvy/faq/VSO631) CHOL/HDLC RATIO 2.6 <5.0 (calc) NON HDL CHOLESTEROL 98 <130 mg/dL (calc) For patients with diabetes plus 1 major ASCVD risk factor, treating to a non-HDL-C goal of <100 mg/dL (LDL-C of <70 mg/dL) is considered a therapeutic option. COMPREHENSIVE METABOLIC CHIPOctavio Reilly (96378) Reviewed date:10/16/2024 09:04:29 AM Interpretation: Performing Lab:CB, [facility] [address] [facility]icof[facility] [address] [facility] MinnesotaQekqCN[address] Dewayne Tamayo Notes/Report: NON-FASTING; NON-FASTING; NON-FASTING; NON-FASTING [...] 17 10-35 U/L ALT 11 6-29 U/L VITAMIN B12/FOLATE, SERUM GA ILANA (7065) Reviewed date:03/27/2024 10:28:09 AM Interpretation: Performing Lab:JOANN, [employer] [address] [facility], [facility] MinnesotaJzjxLF[address] Dewayne Tamayo Notes/Report: NON-FASTING; NON-FASTING; NON-FASTING; NON-FASTING; NON-FAST FASTING:NO FASTING: NO VITAMIN B12 449 796-1734 pg/mL Please Note: Although the reference range [...] Range Low: <3.4 Borderline: 3.4-5.4 Normal: >5.4 CBC (INCLUDES DIFF/PLT) (639 9) Reviewed date:03/27/2024 10:28:09 AM Interpretation: Performing Lab:JOANN [employer] [address] [facility], Children[facility] MinnesotaImomFG[address] Dewayne Tamayo Notes/Report: NON-FASTING; NON-FASTING; NON-FASTING; NON-FASTING; [...] MPV 12.6 7.5-12.5 fL ABSOLUTE NEUTROPHILS 3577 5903-1800 cells/uL ABSOLUTE LYMPHOCYTES 7200 736-5609 cells/uL ABSOLUTE MONOCYTES 794 200-950 cells/uL ABSOLUTE EOSINOPHILS 167 15-500 cells/uL ABSOLUTE BASOPHILS 31 0-200 cells/uL NEUTROPHILS 57.7 LYMPHOCYTES 26.3 MONOCYTES 12.8 EOSINOPHILS 2.7 BASOPHILS 0.5 IRON, TIBC AND FERRITIN PANE L (5616) Reviewed date:03/27/2024 10:28:09 AM Interpretation: Performing Lab:JOANN, [employer] [address], Children's MinnesotaDvyvQR[address] Dewayne Tamayo Notes/Report: NON-FASTING; NON-FASTING; NON-FASTING; NON-FASTING; NON-FAST FASTING:NO FASTING: NO IRON, TOTAL 26 45-160 mcg/dL IRON BINDING CAPACITY 348 250-450 mcg/dL (marielos c) % SATURATION 7 16-45 % (calc) FERRITIN 51 16-288 ng/mL X ray : Hip and thigh, Right Reviewed date:12/19/2024 08:05:43 PM Interpretation: Performing Lab: Notes/Report: CBC (INCLUDES DIFF/PLT) (639 9) Reviewed date:09/01/2024 03:05:17 PM Interpretation: Performing Lab:JOANN [employer] [address] [employer], Children's MinnesotaLccoVY[address] Dewayne Tamayo Notes/Report: NON-FASTING; NON-FASTING; NON-FASTING WHITE [...] MPV 12.6 7.5-12.5 fL ABSOLUTE NEUTROPHILS 3127 0546-1792 cells/uL ABSOLUTE LYMPHOCYTES 2269 850-3900 cells/uL ABSOLUTE MONOCYTES 819 200-950 cells/uL ABSOLUTE EOSINOPHILS 247 15-500 cells/uL ABSOLUTE BASOPHILS 39 0-200 cells/uL NEUTROPHILS 48.1 LYMPHOCYTES 34.9 MONOCYTES 12.6 EOSINOPHILS 3.8 BASOPHILS 0.6 MAGNESIUM (622) Reviewed date:09/01/2024 03:05:17 PM Interpretation: Performing Lab:JOANN, [employer] [address] [employer], Children's MinnesotaLriiRB[address] Dewayne Tamayo Notes/Report: NON-FASTING; NON-FASTING; NON-FASTING MAGNESIUM 2.2 1.5-2.5 mg/dL COMPREHENSIVE METABOLIC PANE L (30733) Reviewed date:09/01/2024 03:05:17 PM Interpretation: Performing Lab:JOANN, [employer] Nacm[address] [facility], Children[facility] MinnesotaLmgbBL[address] Dewayne Tamayo Notes/Report: NON-FASTING; NON-FASTING; NON-FASTING GLUCOSE [...] 17 10-35 U/L ALT 10 6-29 U/L Medications Medication SIG (Take, Route, Frequency, Duration) Notes Start Date End Date Status Spironolactone 50 mg TAKE ONE TABLET BY MOUTH TWICE DAILY; Duration: 30 Active Lisinopril 20 MG TAKE 1 TABLET EVERY DAY; Duration: 90 Active Gemtesa 75 MG TAKE 1 TABLET EVERY DAY; Duration: 90 Active Nebivolol HCl 10 MG TAKE 1 TABLET EVERY DAY; Duration: 90 Active Triamcinolone Acetonide 0.5 % [...] review and pick correct strength-formulati on from SLIC games options. If intended option is not shown, [...] days 04/25/2024 Active HYDROcodone-Acetaminop hen 7.5-325 MG TAKE ONE TABLET BY MOUTH EVERY 6 HOURS; Duration: 30 02/06/2025 Active Peridex 0.12 % 15 mL orally [...] Comme nts Adacel (Tdap) Unknown 04/23/2015 Administered [facility] Unknown 05/02/2020 Administered [facility] Unknown 12/26/2020 Administered Fluvirin--Influenza vaccine 3+ year [...] Fluzone High Dose IM Intramuscular 12/14/2024 Administered Influenza (Fluzone)--Medicare only IM Intramuscular 12/03/2014 Administered Influenza (Fluzone)--Medicare only IM Intramuscular 11/15/2015 Administered Pneumovax-23 (pneumococccal vaccine polyvalent)2 years or older IM Intramuscular 11/01/2013 Administered Prevnar PCV-13 (Pneumococcal conjugate 13) IM Intramuscular 01/22/2015 Administered Prevnar PCV-20 (Pneumococcal conjugate 20) IM Intramuscular 08/26/2021 Administered Problems Problem Type SNOMED Code ICD Code Onset Dates Problem Status W/U Status Risk Notes Problem Chronic pain syndrome (062219299) Chronic pain syndrome (G89.4) Active confirmed Problem Overactive bladder (169447106) Overactive bladder (N32.81) Active confirmed Problem Urge incontinence of urine (49327846) Urge incontinence (N39.41) Active confirmed Problem Hypertension (00037400) HTN (hypertension) (I10) Active confirmed Problem Vitamin D deficiency (30120491) Vitamin D deficiency (E55.9) Active confirmed Problem Osteoporosis (79184746) Osteoporosis (M81.0) Active confirmed Problem Hyperlipidemia (32520752) Hyperlipemia, idiopathic familial (E78.5) Active confirmed Problem Mild cognitive impairment (454813293) Mild cognitive impairment (G31.84) Active confirmed Problem Gastroesophageal reflux disease (430423060) GERD without esophagitis (K21.9) Active confirmed Problem Lymphedema (37570040) Lymphedema (I89.0) Active confirmed Problem Body mass index 30.00 to 34.99 (406276962910559) BMI 34.0-34.9,adult (Z68.34) Active confirmed Problem Chronic pain (88089750) Other chronic pain (G89.29) Active confirmed Problem Cardiac pacemaker in situ (385866817) Status cardiac pacemaker (Z95.0) Active confirmed Problem Atherosclerosis of coronary artery without angina pectoris (720745185003327) Atherosclerosis of [place] lag[place] coronary artery of [place] heart without angina pectoris (I25.10) Active confirmed Problem Memory loss (41431977) Memory loss (R41.3) Active confirmed Problem Primary osteoarthritis (295753964) Primary osteoarthritis involving multiple joints (M15.0) Active confirmed Problem Urge incontinence of urine (55337933) Urinary incontinence, urge (N39.41) Active confirmed Problem Sacroiliitis (59972856) Sacroiliitis (M46.1) Active confirmed Problem Iron deficiency anemia (09699930) Iron deficiency anemia, unspecified iron deficiency anemia type (D50.9) Active confirmed Problem Obese class II (014290216832397) BMI 35.0-35.9,adult (Z68.35) Active confirmed Problem Chronic diastolic heart failure (710287802) Diastolic CHF, chronic (I50.32) Active confirmed Problem Chronic anemia (942228439) Chronic anemia (D64.9) Active confirmed Problem Primary adenocarcinoma of colon (9357980256545) Adenocarcinoma, colon (C18.9) Active confirmed Problem Arthritis of knee (589235521) Arthritis of knee (M17.10) Active confirmed Problem Gastroesophageal reflux disease with esophagitis (disorder) (879558369) Gastroesophageal reflux disease with esophagitis without hemorrhage (K21.00) Active confirmed Problem Adrenal mass (770739410) 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) Active confirmed Problem Cholelithiasis without obstruction (59214711) Symptomatic cholelithiasis (K80.20) Active confirmed Vital Signs Heart Rate 72 /min 12/14/2024 Temperature 98.2 degrees Fahrenheit 12/14/2024 Oximetry 99 11/06/2024 Blood pressure diastolic 78 mm Hg 12/14/2024 Height 5 ft 3 in in 12/14/2024 Blood pressure systolic 136 mm Hg 12/14/2024 Weight 232 lbs 12/14/2024 BMI 41.09 kg/m2 12/14/2024 Encounters Encounter Location Date Provider Diagnosis [facility] PED MAGAN [address] [place] [address] 05/27/2024 Provider Migration Chronic pain syndrome G89.4 and Bronchitis J40 [facility] [address] [address] 03/07/2024 Jose Mendoza Primary osteoarthrit is involving multiple joints M15.0 ; HTN (hypertension) I10 ; Hyperlipemia, idiopathic familial E78.5 ; Lymphedema I89.0 ; Dyspnea on exertion R06.09 ; Overactive bladder N32.81 and Routine medical exam Z00.00 [facility] [address] [address] 03/23/2024 Jose Mendoza Chronic anemia D64.9 ; Dyspnea on effort R06.09 and Arthritis of knee M17.[address] [address] 05/05/2024 Telma McNees Bronchitis J40 [address] [address] 06/13/2024 Jose Mendoza Adenocarcinoma, colo n C18.9 ; Atherosclerosis of [place] lag[place] coronary artery of [place] heart without angina pectoris I25.10 ; Iron deficiency anemia, unspecified iron deficiency anemia type D50.9 ; Diastolic CHF, chronic I50.32 and Chronic pain syndrome G89.4 [facility] [address] [address] 07/20/2024 Jose Mendoza Diastolic CHF, chron ic I50.32 ; S/P right colectomy Z90.49 ; Adenocarcinoma, colon C18.9 and Hospital discharge follow-up Z09 [facility] [address] [address] 08/17/2024 Jose Mendoza Left heart failure w ith preserved LV function I50.30 and Hospital discharge follow-up Z09 [address] [address] 08/31/2024 Jose Mendoza Diastolic CHF, chron ic I50.32 and Iron deficiency anemia, unspecified iron deficiency anemia type D50.[address] [address] 10/10/2024 Jose Mendoza Iron deficiency anem ia, unspecified iron deficiency anemia type D50.9 ; Hyperlipemia, idiopathic familial E78.5 ; Adenocarcinoma, colon C18.9 ; Diastolic CHF, chronic I50.32 ; Insect bite (nonvenomous), left thigh, initial encounter S70.362A and Bitten or stung by nonvenomous insect and other nonvenomous arthropods, initial encounter W57.XXXA [facility] [address] [address] 10/30/2024 Telma Priscila Bronchopneumonia J18 .0 [place] [facility] [address] [address] 11/06/2024 Telma Priscila Shortness of breath R06.02 and Abdominal distension R14.0 [facility] [address] [address] 12/14/2024 Jose Besson Right hip pain M25.5 51 ; Pain, joint, knee, right M25.561 ; Primary osteoarthritis involving multiple joints M15.0 ; Immunization(s) administered Z23 ; Atherosclerosis of [place] lag[place] coronary artery of [place] heart without angina pectoris I25.10 ; Symptomatic cholelithiasis K80.20 and Routine medical exam Z00.00 [facility] [address] [address] 02/14/2024 Jose Besson Chronic pain syndrom e G89.4 [facility] [address] [address] 03/13/2024 Jose Besson Chronic pain syndrom e G89.4 [facility] [address] [address] 03/20/2024 Jose Besson Peripheral edema R60 .0 [place] [facility] [address] [address] 04/14/2024 Jose Besson Chronic pain syndrom e G89.4 [place] [facility] [address] [address] 04/24/2024 Jose Besson Peripheral edema R60 .[address] [place] [address] [address] 04/25/2024 Jose Besson [place] [facility] [address] [address] 05/11/2024 Jose Besson Chronic pain syndrom e G89.4 [facility] [address] [place] [address] 06/12/2024 Jose Besson Chronic pain syndrom e G89.4 [facility] [address] [place] [address] 07/10/2024 Jose Besson Chronic pain syndrom e G89.4 [facility] [address] [place] [address] 07/19/2024 Jose Besson [facility] [address] [place] [address] 07/19/2024 Jose Besson [facility] [address] [place] [address] 08/11/2024 Jose Besson Chronic pain syndrom e G89.4 [facility] [address] [place] [address] 09/07/2024 Jose Besson Chronic pain syndrom e G89.4 [facility] [address] [place] [address] 10/05/2024 Jose Besson Chronic pain syndrom e G89.4 [facility] [address] [place] [address] 11/06/2024 Jose Besson Chronic pain syndrom e G89.4 [facility] [address] [place] [address] 11/06/2024 Telma McNees [facility] [address] [place] [address] 11/13/2024 Telma McNees [facility] [address] [place] [address] 11/20/2024 Jose Besson [facility] [address] [place] [address] 12/07/2024 Jose Besson Chronic pain syndrom e G89.4 [facility] [address] [place] [address] 02/06/2025 Jose Besson Chronic pain syndrom e G89.4 Assessments Encounter Date Diagnosis (ICD Code) Assessment Notes Treatment Notes Treatment Clinical Notes Section Notes 02/14/2024 Chronic pain syndrome (ICD-10 - G89.4) 03/07/2024 HTN (hypertension) (ICD-10 - I10) Chronic, controlled. Continue current regimen. 03/13/2024 Chronic pain syndrome (ICD-10 - G89.4) [...] Chronic pain syndrome (ICD-10 - G89.4) 03/07/2024 Primary osteoarthritis involving multiple joints (ICD-10 - M15.0) Chronic, improved. Follows with pain management and s/p right supraclavicular nerve block that has been helpful and the plan is to try again on the left. Started on pregabalin 75 mg BID per PM that she believes is helpful. Continue hydrocodone 7.5 mg Q6H PRN. CSA signed today. 06/13/2024 Atherosclerosis of big lagoon coronary artery of [place] heart without angina pectoris (ICD-10 - I25.10) Currently stable from heart disease perspective, continues to follow with [facility] cardiology.Will represent a high risk patient if resection is deemed to be an option by [facility] colorectal surgery 06/13/2024 Adenocarcinoma, colon (ICD-10 - C18.9) Reviewed [...] 10/05/2024 Chronic pain syndrome (ICD-10 - G89.4) 10/10/2024 Hyperlipemia, idiopathic familial (ICD-10 - E78.5) 10/10/2024 Iron deficiency anemia, unspecified iron deficiency anemia type (ICD-10 - D50.9) History of anemia, will track labs today to see if this is causing her problems with fatigue 10/30/2024 Bronchopneumonia (ICD-10 - J18.0) Discussed the [...] 12/07/2024 Chronic pain syndrome (ICD-10 - G89.4) 12/14/2024 Right hip pain (ICD-10 - M25.551) Lots of arthralgias and joint pains everywhere. She thinks that hip pain and knee pain are new and is worried about them being related to her previous francis placement. Will check x-rays and reevaluate the anatomy. 12/14/2024 Pain, joint, knee, right (ICD-10 - M25.561) 02/06/2025 Chronic pain syndrome (ICD-10 - G89.4) 12/14/2024 Primary osteoarthritis involving multiple joints (ICD-10 - M15.0) Following with pain management for injections in the left knee 07/20/2024 Adenocarcinoma, colon (ICD-10 - C18.9) -s/p resection as above 10/10/2024 Adenocarcinoma, colon (ICD-10 - C18.9) Follows with [facility] oncology 06/13/2024 Iron deficiency anemia, unspecified iron deficiency anemia type (ICD-10 - D50.9) Will follow-up in 2 months with blood counts at that point 03/23/2024 Arthritis of knee (ICD-10 - M17.10) Continue pain management, with medications for me as well as pain clinic visits. 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 Lipid panel pending today. 03/07/2024 Lymphedema (ICD-10 - I89.0) Chronic, improved. [...] mobility device. 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 Still seems to me to be fairly high risk, she will see [facility] surgery as noted below 10/10/2024 Insect bite (nonvenomous), left thigh, initial encounter (ICD-10 - S70.362A) Tick bite. Unclear time course, given her aches and pains will check Lyme titers. Cover with amoxicillin given her total symptom burden 03/07/2024 Dyspnea on exertion (ICD-10 - R06.09) Chronic, stable. Follows with cardiology with extensive w/u completed. Continue daily lasix and K supplementation. Pulmonology and pulmonology rehab referral placed. 06/13/2024 Chronic pain syndrome (ICD-10 - G89.4) Patient has been compliant with our office and [place] regulations r.e. meds. No concerns on my [...] W57.XXXA) 12/14/2024 Symptomatic cholelithiasis (ICD-10 - K80.20) [facility] surgery consult pending. They will [...] negative, no cognitive impairment. is healthcare surrogate. 03/07/2024 Routine medical exam (ICD-10 - Z00.00) [...] currently negative. Lab today. Will personally review. Plan Of Treatment Pending Test Test Name Order Date Ultrasound : Abdomen 08/17/2012 Physical Therapy 04/08/2021 Physical Therapy 11/10/2013 Physical Therapy 08/01/2019 Mammogram : Bilateral 03/07/2021 Mammogram : Bilateral [...] 03/05/2022 Next Appt Details Provider Name:Jose Mendoza, 02/27/2025 10:00:00 AM, 2017 [facility], [place], [address], Insurance Providers Payer Name Payer Address Payer Phone Subscriber Number Group Number Insured Name Patient Relationship to Insured Coverage Start Date Coverage End Date [employer] [address] [address] [place] [address] [id number] Gina Stone Self - patient is the insured MEDICAID EDS [address] [place] [address] [id number] Gina Stone Self - patient is the [...] removed Hospitalization History Reason Date(Month/Year) HTN 2012 [facility] - Colon surgery 07/10- [facility] - 07/22-07/24/2023
--- OUTSIDE RECORDS SUMMARY | 2025-02-13 10:37 | XMS_ITS | Encounter Summary ---
Author Organization Healthcare Address [address] [place] [address] Care Team Providers Care Punch Box Tender Name Role Phone Jose Mendoza MD Primary Care Provider [phone] Reason for Visit * Reason Onset Date Comments Labs 02/09/2025 [facility] Encounter Details Date Type Department Care Team ([facility] st Contact Info) Description 02/09/2025 Telephone [facility] [address] [place] [address] Mata Smalls MD [address] [facility] [address] [place] [address] Labs ([facility] ) Social History Tobacco Use Types Packs/Day Years [...] any time in the past 12 m [facility], were you homeless or living [...] Telephone Encounter - Amber Goel RN - 02/09/2025 12:36 PM EST Message received from Ivy Moon [facility] [employer]. Unable to contact pt for mobile phlebotomy schedulingfor [facility] test. Called and spoke with pt. Notified that Signatera test ordered per provider. Provided pt with number [phone] for mobile phlebotomy scheduling. Pt verbalized understanding. Nofurther questions or concerns. documented in this encounter Plan of Treatment Upcoming Encounters Date Type Department Care Team (Latest Contact Info) Description 07/10/2025 12:00 PM EDT Appointment [facility] [address] [place] [address] 07/10/2025 2:30 PM EDT Office Visit [facility] [address] [place] [phone] Mata Smalls MD [address] [facility] [address] [place] [address] 07/10/2025 2:30 PM EDT Clinical Support [facility] [address] [place] [address] documented as of this encounter Visit Diagnoses Not on filedocumented in this encounter Additional Health Concerns Assessment Noted Time A fall risk assessment has been complete d for the patient 01/09/2025 2:50 PM EST A Body Mass Index follow-up plan has been documented for the patient 01/19/2025 11:45 AM EST documented as of this encounter Care Teams Punch Box Tender Relationship Specialty Start Date End Date Jose Mendoza MD [facility] [address] [address] PCP - General Internal Medicine 05/23/24 documented as of this encounter
--- OUTSIDE RECORDS SUMMARY | 2025-02-13 10:38 | XMS_ITS | Encounter Summary ---
Author Organization [facility] Address [address] [place] [address] Care Team Providers Care Compliance Engineer Products Name Role Phone Jose Mendoza MD Primary Care Provider [phone] Encounter Details Date Type Department Care Team (Latest Contact Info) Description 02/08/2025 Travel Social History Tobacco Use Types Packs/Day [...] Description 02/27/2025 12:30 PM EST Ancillary Procedure [facility] [address] [place] [address] [place] [address] 03/14/2025 1:30 PM EST Office Visit [facility] [address] [place] [address] [place] [address] [place] [address] 06/04/2025 10:45 AM EDT Office Visit [facility] [address] [place] [address] [place] [address] Reanna Krishnamurthy MD [address] [place] [address] [place] [address] 06/04/2025 10:45 AM EDT Clinical Support No Requirements [facility] [address] [place] [address] [place] [address] documented as of this encounter Visit Diagnoses Not on filedocumented in this encounter Care Teams Compliance Engineer Products Relationship Specialty Start Date End Date Jose Mendoza MD [address] [facility] [address] [place] [address] PCP - General Adolescent Medicine 08/03/22 documented as of this encounter
--- OUTSIDE RECORDS SUMMARY | 2025-02-13 10:38 | XMS_ITS | Encounter Summary ---
Author Organization [facility] Address [address] [place] [address] Care Team Providers Care Wafer Polishing Lead Worker Name Role Phone Jose Mendoza MD Primary Care Provider [phone] Encounter Details Date Type Department Care Team (Latest Contact Info) Description 01/09/2025 Travel Social History Tobacco Use Types Packs/Day [...] time in the past 12 m [facility], were you homeless or living in a penitentiary (including now)? No 07/11/2024 Utilities Answer Date [...] Info) Description 07/10/2025 12:00 PM EDT Appointment [facility] [address] [place] [address] 07/10/2025 2:30 PM EDT Office Visit [facility] Multidisciplinary Oncology Clinic [address] [place] [address] Mata Smalls MD [address] [place] [address] 07/10/2025 2:30 PM EDT Clinical Support [facility] Mult[facility] Oncology Clinic [address] [place] [address] documented as of this encounter Visit Diagnoses Not on filedocumented in this encounter Additional Health Concerns Assessment Noted Time A fall risk assessment has been complete d for the patient 01/09/2025 2:50 PM EST A Body Mass Index follow-up plan has been documented for the patient 01/19/2025 11:45 AM EST documented as of this encounter Care Teams Wafer Polishing Lead Worker Relationship Specialty Start Date End Date Jose Mendoza MD [facility] [address] PCP - General Internal Medicine 05/23/24 documented as of this encounter
--- OUTSIDE RECORDS SUMMARY | 2025-02-13 10:38 | XMS_ITS | Clinical Summary ---
Author Organization [facility] Address [address] [place] [address] Care Team Providers Care Commissioned Defence [employer] Officer Name Role Phone Jose Mendoza MD Primary Care Provider [phone] Allergies No known active allergies Medications alendronate [...] tablet by mouth daily. Active HYDROcodone-acetam inophen (Ellsworth) 7.5-325 MG tablet Take 1 tablet by [...] for 24 doses. 24 tablet 5 Active potassium chloride CR (Klor-Con) 10 MEQ ER tablet Take 1 tablet by mouth daily. 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 04/05/2023 Resolved Problems Problem Noted Date Diagnosed Date Resolved Date Malignant neoplasm of colon 06/20/2024 01/09/2025 Encounters Date Type Department Care Team Description 02/09/2025 Telephone [facility] [address] [place] [address] Mata Smalls MD Labs ([facility] ) 01/10/2025 Lab Requisition [facility] [address] [place] [address] Mata Smalls MD Malignant neoplasm of colon, unspecified (CMS/HCC) 01/09/2025 2:30 PM EST Office Visit [facility] [address] [place] [address] Mata Smalls MD Malignant neoplasm of ascending colon (CMS/HCC) (Primary Dx); 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 (BMI) of 40.0 or higher (CMS/HCC); Abdominal swelling 01/09/2025 11:39 AM EST - 01/09/2025 11:59 PM EST Hospital Encounter [facility] [address] [place] [address] Malignant neoplasm of ascending colon (CMS/HCC) Discharge Disposition: Home or Self Care 01/09/2025 Social Work [facility] [address] [place] [address] Jhon Naqvi 01/09/2025 Travel from Last 3 Months Family History [...] any time in the past 12 m [facility], were you homeless or living in a senior living (including now)? No 07/11/2024 Utilities Answer Date [...] F) 01/09/2025 2:48 PM EST Respiratory Rate 16 08/15/2024 2:56 PM EDT Oxygen Saturation 95% 01/09/2025 2:48 PM EST Inhaled Oxygen Concentration - - Weight 108 kg (239 lb) 01/09/2025 2:48 PM EST Height 157.5 cm (5' 2 ) 01/09/2025 2:48 PM EST Body Mass Index 43.71 01/09/2025 2:48 PM EST Plan of Treatment Upcoming Encounters Date Type Department Care Team (Latest Contact Info) Description 07/10/2025 12:00 PM EDT Appointment [facility] [address] [place] [address] 07/10/2025 2:30 PM EDT Office Visit [facility] Mult[facility] On[facility] Clinic [address] [place] [address] Mata Smalls MD [address] [place] [address] 07/10/2025 2:30 PM EDT Clinical Support [facility] [address] [place] [address] Health Maintenance Due Date Last Done Comments [facility]-Bone Density Scan 1945 [facility]-Medicare Annual Wellness (AWV) 1945 [facility]-Infant/Child/Adol SDOH Screenings 1945 [facility]-Hepatitis A Vaccines (1 of 2 - Risk 2-dose series) 1962 [facility]-Pneumococcal Vaccine: 50+ Years (1 of 2 - PCV) 1962 [facility]-Zoster Vaccines (1 of 2) 1962 [facility]-DTaP,Tdap,and Td Vaccines (1 - Tdap) 12/21/1997 12/20/1997 [facility]-RSV Vaccine: 60+ Years or (1 - 1-dose 75+ series) 2018 [facility]-INZOL-48 Vaccine (3 - season) 2024 12/26/2020, 05/02/2020 [facility]- SDOH Screenings 01/11/2025 [facility]-Adult SDOH Screenings 01/11/2025 07/11/2024 [facility]-Depression Screening 08/15/2025 08/15/2024 [facility]-Influenza Vaccine Completed 12/14/2024 , 11/30/2023, 12/08/2022, Additional history exists [facility]-Obesity Intervention Completed 025, 08/15/2024, 06/20/2024, Additional history exists HPV Vaccines (No Doses Required) Completed [facility]-HIB Vaccines Aged Out No longer e ligible based on patient's age to complete this topic [facility]-IPV Vaccines Aged Out No longer e ligible based on patient's age to complete this topic [facility]-Rotavirus Vaccines Aged Out No lo nger eligible based on patient's age to complete this topic Procedures Procedure Name Priority Date/Time Associated Diagnosis Comments CEA, SERUM Routine 01/09/2025 1:14 PM EST Malignant neoplasm of ascending colon (CMS/HCC) CT ABDOMEN PELVIS W IV CONTRAST Routine 01/09/2025 12:43 PM EST Malignant neoplasm of ascending colon (CMS/HCC) CT CHEST W IV CONTRAST Routine 01/09/2025 12:43 PM EST Malignant neoplasm of ascending colon (CMS/HCC) INSERT PERIPHERAL IV Routine 01/09/2025 12:00 PM EST Malignant neoplasm of ascending colon (CMS/HCC) from Last 3 Months Results * CEA, Serum (01/09/2025 1:14 PM EST) CEA, Serum 2.9 <4.0 ng/mL 01/09/2025 2:16 PM EST [facility] Blood Venous blood specimen / Unknown Venipuncture / Unknown 01/09/2025 1:14 PM EST 01/09/2025 1:40 PM EST Narrative [facility] - 01/09/2025 2:16 PM EST Normal range for smokers: < 5.5 ng/ml Normal range for non-smokers: <=4.0 ng/ml Performed by Shirin electrochemiluminescent immunoassay. Results obtained with different test methods or kits cannot be used interchangeably. us Mata Smalls MD LAB BLOOD ORDERABLES Final Res ult [facility] [address] [place] [address] * CT Abdomen Pelvis w IV Contrast [...] written report. By electronically signing this report, I the attending physician, attest that I have [...] RN - 01/09/2025 12:00 PM EST Vangie Winn, RN 01/09/2025 12:26 PM Insert peripheral IV [...] Education provided to: Patient Assistance other than photovoltaic testing technician: X1 Mata Smalls MD IV THERAPY ORDERABLES Final Re sult from Last 3 Months Insurance [employer] MEDICARE [place]ICA[place] Advance Directives * Full Code (Latest Code Status on File) Date Activated Date Inactivated Comments 07/10/2024 8:40 PM 07/15/2024 6:51 PM Question Answer Comments I have reviewed the capacity from the link above and, if needed, have updated to appropriate status: Yes Care Teams Commissioned Defence [employer] Officer Relationship Specialty Start Date End Date Jose Mendoza MD [facility] [address] PCP - General Internal Medicine 05/23/24
--- OUTSIDE RECORDS SUMMARY | 2025-02-13 10:38 | XMS_ITS | Encounter Summary ---
Author Organization Healthcare Address [address] [place] [address] Care Team Providers Care Dcs Engineer Name Role Phone Jose Mendoza MD Primary Care Provider [phone] Encounter Details Date Type Department Care Team (Late st Contact Info) Description 06/15/2024 Lab Requisition [facility] [address] [place] [address] Mata Smalls MD [address] [address] Anemia, unspecified Social History Tobacco [...] Info) Description 07/10/2025 12:00 PM EDT Appointment [facility] [address] [place] [address] 07/10/2025 2:30 PM EDT Office Visit [facility] Multidisciplinary Oncology Clinic [address] [place] [address] Mata Smalls MD [address] [facility] [address] [place] [address] (work) 07/10/2025 2:30 PM EDT Clinical Support [facility] Mult[facility] Oncology Clinic [address] [place] [address] documented as of this encounter Procedures Procedure Name Priority Date/Time Associated Diagnosis Comments SURGICAL PATHOLOGY CONSULT Routine 06/15/2024 1:25 PM EDT Anemia, unspecified documented in this encounter Results * Surgical Pathology Consult (06/15/2024 1:25 PM EDT) Case Report Sugical Pathology Consult Case: [id number] Authorizing Provider: Mata Smalls MD Collected: 06/15/2024 1325 Ordering Location: [facility] Lab Received: 06/15/2024 1326 Pathologist: Mick Dash MD Specimen: Colon, [id number] 2:[address] [facility] Final Diagnosis (OUTSIDE CASE: [id number], PARTS C&D; COLLECTED ON 06/07/2024): COLON, HEPATIC FLEXURE, BIOPSY (C): - ADENOCARCINOMA, POORLY DIFFERENTIATED (SEE COMMENT) SIGMOID COLON, POLYP, BIOPSY (D): - ADENOCARCINOMA, POORLY DIFFERENTIATED (SEE COMMENT) 2:[address] [facility] at 1447 EDT Comment The clinical impression [...] tumor with enteric differentiation. 2:47 PM EDT [facility] Clinical Information D64.9 - Anemia, unspecified [ICD-10-CM] 2:47 PM EDT [facility] Special and Immunohistochemical Stains Immunohistochemica l stains that have been performed and interpreted by the outside institution (not reviewed here), have been reported as follows: Positive: CDX2, SATB2 (focal, weak) Negative: CK7, CK20, SYNAPTOPHYSIN, CD56 MMR proteins; IHC interpretation (per report) Loss of nuclear expression of MLH1 and PMS2 5 2:47 PM EDT [facility] Gross Description A. [id number] Received along with a corresponding pathology report from [facility] Laboratory are 2 slides labeled outside case: [id number] collected on 06/07/2024. 2:47 PM EDT [facility] Note: A resident was involved in the service. I attest I examined the relevant preparations for the specimens and confirmed the diagnosis or interpretation. 2:47 PM EDT [facility] Tissue Colon structure / Unknown 06/15/2024 1:25 PM EDT 06/15/2024 1:26 PM EDT us Mata Smalls MD LAB PATHOLOGY ORDERABLES Final Result [facility] [address] [place] [address] documented in this encounter Visit Diagnoses Diagnosis Anemia, unspecified documented in this encounter Care Teams Dcs Engineer Relationship Specialty Start Date End Date Jose Mendoza MD [facility] [address] PCP - General Internal Medicine 05/23/24 documented as of this encounter
[2025-02-13 11:24] LABS: Hematocrit 42.2 % (37.0-47.0); Hemoglobin 13.0 g/dL (12.2-16.2); Immature Granulocytes % 0.2 %; Mean Corpuscular HGB Conc 30.8 g/dL (31.8-35.4); Mean Corpuscular Hemoglobin 28.3 pg (27.0-31.2); Mean Corpuscular Volume 91.9 fl (81-99); Nucleated Red Blood Cells % 0 %; Platelet Count 203 K/mm3 (142-424); Red Blood Count 4.59 M/mm3 (4.20-5.40); Red Cell Distribution Width-SD 51.2 fL; White Blood Count 5.9 K/mm3 (4.8-10.8)
[2025-02-13 11:41] LABS: Chloride 105 mmol/L (98-107)
[2025-02-13 11:42] LABS: Albumin Level 4.2 g/dl (3.5-5.0); Potassium 4.6 mmoL/L (3.5-5.1); Sodium 142 mmol/L (136-145)
[2025-02-13 11:45] LABS: Alanine Aminotransferase 17 U/L (12-78); Albumin/Globulin Ratio 1.6 (1.1-1.8); Alkaline Phosphatase 84 U/L (38-126); Anion Gap 11.6 mEq/L (5-15); Aspartate Amino Transferase 31 U/L (14-36); Bilirubin,Total 0.8 mg/dl (0.2-1.3); Blood Urea Nitrogen 22 mg/dl (7-17); Calcium 10.0 mg/dl (8.4-10.2); Carbon Dioxide 30 mmol/L (22.0-30.0); Creatinine,Serum 1.20 mg/dl (0.52-1.04); Estimated Glomerular Filt Rate 43 ml/min (>60); GFR (African American) 52 ML/MIN (>60); Globulin 2.6 g/dL (1.3-3.2); Glucose 114 mg/dl (74-100); Magnesium 2.1 mg/dl (1.6-2.3); Total Protein,Serum 6.8 g/dl (6.3-8.2)
[2025-02-13 11:53] LABS: NT Pro Brain Natriuretic Pep. 471 pg/mL (0-450)
== END 2025-02-13 23:59 | disposition home or self-care (01) ==
LOC: LAB 10:34
PROVIDERS: PCP Internal Medicine Adolescent Medicine; Visit Provider Nurse Practitioner Family
DX: I50.32 Chronic diastolic (congestive) heart failure (principal); I25.10 Atherosclerotic heart disease of native coronary artery without angina pectoris
CPT/HCPCS: 36415; 80053; 83735; 83880; 85025

== ENCOUNTER 2025-02-21 09:22 | Outpatient (CLI) | payer MEDICARE, MEDICAID, SELFPAY ==
--- OUTSIDE RECORDS SUMMARY | 2024-05-27 16:30 | XMS_ITS ---
Author Organization [facility] Address [address] [place] [address] Care Team Providers Care Bacon Skinner Name Role Phone Jose Mendoza Primary Care Provider [phone] Migration, Provider Unavailable Unavailable Allergies Allergen (clinical drug ingredient) Drug/Non Drug Allergy documented on EMR Reaction Allergy Type Onset Date Status oseltamivir Tamiflu dizziness Drug Allergy Activ e REASON FOR VISIT [facility] To [facility] Conversion Encounter Medications Medication SIG (Take, Route, Frequency, Duration) Notes Start Date End Date Status NEBIVOLOL 10 MG TABLET TAKE 1 TABLET EVERY DAY; Duration: 90 *Please review for potential replacement for e-prescription and drug interaction check* Active FeroSul 325 (65 Fe) MG Tablet TAKE 1 TABLET TWICE DAILY; Duration: 90 Active Gemtesa 75 MG Tablet TAKE 1 TABLET EVERY DAY; Duration: 90 Active Fluticasone Propionate 50 MCG/ACT Suspension 1 spray(s) in each nostril 2 times a day; Duration: 30 days 06/23/2023 Active Triamcinolone Acetonide 0.5 % Ointment 1 emigdio applied topically 2 times a day; Duration: 7 days 09/16/2023 Active Alendronate Sodium 70 MG Tablet 1 tab(s) orally once a week; Duration: 90 days Active Peridex 0.12 % Solution 15 mL orally 2 times a day; Duration: 30 days 12/31/2022 Active Baclofen 10 MG Tablet 1 tab(s) orally 3 times a day; Duration: 90 days Active Multivitamin MULTIPLE VITAMINS CAPSULE 1 CAP(S) ORALLY ONCE A DAY *Please review and pick correct strength-formulatio n from [email or web address] options. If intended option is not shown, discontinue and re-order from Quick Search* Active Methocarbamol 500 MG Tablet 1-2 tab(s) orally 3 times a day; Duration: 5 day(s) 03/26/2020 Active Xarelto 20 MG Tablet 1 tab(s) orally once a day (in the evening); Duration: 90 days Active Aspirin 81 MG Tablet Delayed Release 1 tab(s) orally once a day Active Lisinopril 20 MG Tablet 1 tab(s) orally once a day; Duration: 90 days Active OS-EHSAN 500 1250 MG TABLET 1 TAB(S) ORALLY BID *Please review for potential replacement for e-prescription and drug interaction check* Active Pravastatin Sodium 80 MG Tablet 1 tab(s) orally once a day; Duration: 90 days Active Doxycycline Monohydrate 100 MG Capsule 1 cap(s) orally 2 times a day; Duration: 7 days 05/05/2024 Active Pantoprazole Sodium 40 MG Tablet Delayed Release 1 tab(s) orally twice a day; Duration: 90 days Active Benzonatate 200 MG Capsule 1 cap(s) orally 3 times a day; Duration: 5 days 05/05/2024 Active Isosorbide Mononitrate ER 60 MG Tablet Extended Release 24 Hour 1 tab(s) orally once a day (in the morning); Duration: 90 days Active HYDROcodone-Acetamino phen 7.5-325 MG Tablet 1 tab(s) orally every 6 hours; Duration: 30 days 05/11/2024 Active Furosemide 40 MG Tablet 1 tab(s) orally once a day; Duration: 90 days 04/25/2024 Active Encounters Encounter Location Date Provider Diagnosis [facility] [address] [facility] [address] [place] [address] 05/27/2024 Provider Migration Chronic pain syndrome G89.4 and Bronchitis J40 Assessments Encounter Date Diagnosis (ICD Code) Assessment Notes Treatment Notes Treatment Clinical Notes Section Notes 05/27/2024 Chronic pain syndrome (ICD-10 - G89.4) 05/27/2024 Bronchitis (ICD-10 - J40) Plan Of Treatment Medication Medication Name Sig Start Date Stop Date Notes Xarelto 20 MG Tablet 1 tab(s) orally onc e a day (in the evening); Duration: 90 days Lisinopril 20 MG Tablet 1 tab(s) orally once a day; Duration: 90 days Pravastatin Sodium 80 MG Tablet 1 tab(s) orally once a day; Duration: 90 days Doxycycline Monohydrate 100 MG Capsule 1 cap(s) orally 2 times a day; Duration: 7 days 05/05/2024 Pantoprazole Sodium 40 MG Ta blet Delayed Release 1 tab(s) orally twice a day; Duration: 90 days Benzonatate 200 MG Capsule 1 cap(s) oral ly 3 times a day; Duration: 5 days 05/05/2024 Isosorbide Mononitrate ER 60 MG Tablet Extended Release 24 Hour 1 tab(s) orally once a day (in the morning); Duration: 90 days HYDROcodone-Acetaminophen 7.5-325 MG Tablet 1 tab(s) orally every 6 hours; Duration: 30 days 05/11/2024 Next Appt Details Provider Name:Jose Mendoza, 02/27/2025 10:00:00 AM, [address] [place] [address], [id number], Progress Notes * Helena TIMOB:1945 (79 yo F)Acc No.[id number]:05/27/2024 Patient: Gina Zapien Provider: Rain Araujo :1945 A ge:79 Y S ex:Female Date:05/27/2024 Address:[address] [place], [place] [id number] Pcp:Jose Mendoza Subjective: * Chief Complaints: * M ultum To [facility] Conversion Encounter * Medications: T akingAspirin 81 MG Tablet Delayed Release 1 tab(s) orally once a day OS-EHSAN 500 1250 MG TABLET 1 TAB(S) ORALLY BID , Notes to Pharmacist: *Please review for potential replacement for e-prescription and drug interaction check*Multivitamin MULTIPLE VITAMINS CAPSULE 1 CAP(S) ORALLY ONCE A DAY , Notes to Pharmacist: *Please review and pick correct strength-formulation from [employer] options. If intended option is not shown, discontinue and re-order from Quick Search*Methocarbamol 500 MG Tablet 1- 2 tab(s) orally 3 times a day Baclofen 10 MG Tablet 1 tab(s) orally 3 times a day Alendronate Sodium 70 MG Tablet 1 tab(s) orally once a week Peridex 0.12 % Solution 15 mL orally 2 times a day Fluticasone Propionate 50 MCG/ACT Suspension 1 spray(s) in each nostril 2 times a day Triamcinolone Acetonide 0.5 % Ointment 1 emigdio applied topically 2 times a day FeroSul 325 (65 Fe) MG Tablet TAKE 1 TABLET TWICE DAILY Gemtesa 75 MG Tablet TAKE 1 TABLET EVERY DAY NEBIVOLOL 10 MG TABLET TAKE 1 TABLET EVERY DAY , Notes to Pharmacist: *Please review for potential replacement for e-prescription and drug interaction check*Furosemide 40 MG Tablet 1 tab(s) orally once a day Taking Aspirin 81 MG Tablet Delayed Release 1 tab(s) orally once a day Taking OS-EHSAN 500 1250 MG TABLET 1 TAB(S) ORALLY BID , Notes to Pharmacist: *Please review for potential replacement for e-prescription and drug interaction check*Taking Multivitamin MULTIPLE VITAMINS CAPSULE 1 CAP(S) ORALLY ONCE A DAY , Notes to Pharmacist: *Please review and pick correct strength-formulation from [email or web address] options. If intended option is not shown, discontinue and re-order from Quick Search*Taking Methocarbamol 500 MG Tablet 1-2 tab(s) orally 3 times a day Taking Baclofen 10 MG Tablet 1 tab(s) orally 3 times a day Taking Alendronate Sodium 70 MG Tablet 1 tab(s) orally once a week Taking Peridex 0.12 % Solution 15 mL orally 2 times a day Taking Fluticasone Propionate 50 MCG/ACT Suspension 1 spray(s) in each nostril 2 times a day Taking Triamcinolone Acetonide 0.5 % Ointment 1 emigdio applied topically 2 times a day Taking FeroSul 325 (65 Fe) MG Tablet TAKE 1 TABLET TWICE DAILY Taking Gemtesa 75 MG Tablet TAKE 1 TABLET EVERY DAY Taking NEBIVOLOL 10 MG TABLET TAKE 1 TABLET EVERY DAY , Notes to Pharmacist: *Please review for potential replacement for e-prescription and drug interaction check*Taking Furosemide 40 MG Tablet 1 tab(s) orally once a day * Allergies: T amiflu: dizziness Assessment: * Assessment: 1. B ronchitis - J40 (Primary) 2 . C hronic pain syndrome - G89.4 ? Plan: * Treatment: 2. C hronic pain syndrome Refill HYDROcodone-Acetaminophen Tablet, 7.5-325 MG, 1 tab(s), orally, every 6 hours, 30 days, 120 Tablet, Refills 0. 3. O thers Start Pravastatin Sodium Tablet, 80 MG, 1 tab(s), orally, once a day, 90 days, 90, Refills 1; S tart Lisinopril Tablet, 20 MG, 1 tab(s), orally, once a day, 90 days, 90, Refills 1; S tart Isosorbide Mononitrate ER Tablet Extended Release 24 Hour, 60 MG, 1 tab(s), orally, once a day (in the morning), 90 days, 90, Refills 1; S tart Xarelto Tablet, 20 MG, 1 tab(s), orally, once a day (in the evening), 90 days, 90, Refills 1; S tart Pantoprazole Sodium Tablet Delayed Release, 40 MG, 1 tab(s), orally, twice a day, 90 days, 180, Refills 1. Billing Information: * Procedure Codes: * Electronic signature of Prov ider Migration on 02/21/2025 at 09:27 AM EST Sign off status: Pending * Provider: Rain small Migration Date: 0 05/27/2024 Generated for Maico mullen/Valentin/Jessica on: 1 09:27 AM EST
--- OUTSIDE RECORDS SUMMARY | 2024-08-17 06:45 | XMS_ITS ---
Author Organization [facility] Address [address] [place] [address] Care Team Providers Care Manager Client Service Name Role Phone Jose Mendoza Primary Care Provider REASON FOR VISIT er fu Encounters Encounter Location Date Provider Diagnosis [facility] [address] [address] 08/17/2024 Jose Mendoza Plan Of Treatment Next Appt Details Provider Name:Jose Mendoza, 02/27/2025 10:00:00 AM, [address] [place] [address], [phone], Progress Notes * Jorge TIMeDOB:1945 (79 yo F)Acc No.[id number]:08/17/2024 Progress Notes Patient: Gina Zapien Provider: Abdelrahman Mendoza MD :1945 A ge:79 Y S ex:Female Date:08/17/2024 Address:[address] [phone] Subjective: * Chief Complaints: * E r fu * Electronic signature of Junaid Mendoza MD FAAP on 02/21/2025 at 09:27 AM EST Sign off status: Pending * Provider: Abdelrahman Mendoza MD Date: 0 08/17/2024 Generated for Yvonnei ng/Valentin/eTransmitting on: 1 09:27 AM EST
--- OUTSIDE RECORDS SUMMARY | 2025-01-09 11:39 | XMS_ITS | Encounter Summary ---
Author Organization [facility] Address [address] [place] [address] Care Team Providers Care Painter Mirror Name Role Phone Jose Mendoza MD Primary Care Provider [phone] Reason for Referral * Imaging (Routine) - Closed Specialty Diagnoses / Procedures Referred By Contac t Referred To Contact Radiology Diagnoses Malignant neoplasm of ascending colon (CMS/HCC) Procedures CT Abdomen Pelvis w IV Contrast Mata Smalls MD [address] [address] Phone: tel: fax: Referral ID Status Reason Start Date Expiration Date Visits Re quested Visits Authorized [id number] Closed 08/17/2024 02/16/2026 1 1 * Imaging (Routine) - Closed Specialty Diagnoses / Procedures Referred By Contac t Referred To Contact Radiology Diagnoses Malignant neoplasm of ascending colon (CMS/HCC) Procedures CT Chest w IV Contrast Mata Smalls MD [address] [address] Phone: tel: fax: Referral ID Status Reason Start Date Expiration Date Visits Re quested Visits Authorized [id number] Closed 08/17/2024 02/16/2026 1 1 Reason for Visit * Imaging (Routine) - Closed Specialty Diagnoses / Procedures Referred By Contac t Referred To Contact Radiology Diagnoses Malignant neoplasm of ascending colon (CMS/HCC) Procedures CT Abdomen Pelvis w IV Contrast Mata Smalls MD [address] [place] [address] Phone: tel: fax: Referral ID Status Reason Start Date Expiration Date Visits Re quested Visits Authorized [id number] Closed 08/17/2024 02/16/2026 1 1 Encounter Details Date Type Department Care Team (Latest Contact Info) Description 01/09/2025 11:39 AM EST - 01/09/2025 11:59 PM EST Hospital Encounter [facility] [address] [place] [address] Malignant neoplasm of ascending colon (CMS/HCC) Discharge [...] were you homeless or living in a assisted (including now)? No 07/11/2024 Utilities Answer Date [...] on file documented as of this encounter Mental Status * Injection Rate mL/s Answer Entry Date Author 2 01/09/2025 12:24 PM Kayla Daly documented in this encounter Medications at Time [...] 1 tablet by mouth daily. HYDROcodone-acetamin ophen ([place]) 7.5-325 MG tablet Take 1 tablet by [...] Education provided to: Patient Assistance other than retirement manager: [id number] * Irene Duran - 01/09/2025 11:49 AM EST Images from the original note were not included. 1631 Caring for Yourself after Contrast Imaging If [...] Info) Description 07/10/2025 12:00 PM EDT Appointment [facility] [address] [place] [address] 07/10/2025 2:30 PM EDT Office Visit [facility] [address] [place] [address] Mata Smalls MD [address] [place] [id number] 07/10/2025 2:30 PM EDT Clinical Support [facility] [address] [place] [phone] documented as of this encounter Procedures Procedure [...] obvious aggressive bony lesions. Procedure Note Pola Duvla MD - 01/17/2025 CLINICAL INDICATION: colon cancer [...] (01/09/2025 12:00 PM EST) Narrative Vangie Winn, ARRON - 01/09/2025 12:00 PM EST Vangie Winn [...] Education provided to: Patient Assistance other than retirement manager: X1 us Mata Smalls MD IV THERAPY ORDERABLES Final [...] Once in imaging, 1 dose, Starting on 01/09/25 at 1149, Until 01/09/25 at 1224, Routine, Imaging Protocol Orders Given 01/09/2025 12:24 PM EST 100 mL iohexol (OMNIPaque) 9 MG/ML oral contrast 500 mL 500 mL, Oral, Once in imaging, 1 dose, Starting on 01/09/25 at 1149, Until 01/09/25 at 1221, Routine, Imaging Protocol Orders Given 01/09/2025 12:21 PM EST 200 mL documented in this encounter Additional Health Concerns Assessment Noted Time A fall risk assessment has been complete d for the patient 01/09/2025 2:50 PM EST A Body Mass Index follow-up plan has been documented for the patient 01/19/2025 11:45 AM EST documented as of this encounter Care Teams Painter Mirror Relationship Specialty Start Date End Date Jose Mendoza MD [facility] [id number] PCP - General Internal Medicine 05/23/24 documented as of this encounter
--- OUTSIDE RECORDS SUMMARY | 2025-01-09 14:30 | XMS_ITS | Encounter Summary ---
Author Organization [facility] Address [address] [place] [address] Care Team Providers Care Second Floor Operator Name Role Phone Jose Mendoza MD Primary Care Provider [phone] Reason for Referral * Imaging (Routine) - Pending Review Specialty Diagnoses / Procedures Referred By Contac t Referred To Contact Radiology Diagnoses Malignant neoplasm of ascending colon (CMS/HCC) Procedures CT Abdomen Pelvis w IV Contrast Mata Smalls MD [address] [address] Phone: tel: fax: Referral ID Status Reason Start Date Expiration Date V isits Requested Visits Authorized [id number] Pending Review 01/09/2025 07/11/2026 1 1 * Imaging (Routine) - Pending Review Specialty Diagnoses / Procedures Referred By Contelvin t Referred To Contact Radiology Diagnoses Malignant neoplasm of ascending colon (CMS/HCC) Procedures CT Chest w IV Contrast Mata Smalls MD [address] [address] Phone: tel: fax: Referral ID Status Reason Start Date Expiration Date V isits Requested Visits Authorized [id number] Pending Review 01/09/2025 07/11/2026 1 1 Reason for Visit * Reason Comments Colon Cancer Encounter Details Date Type Department Care Team (Latest Contact Info) Description 01/09/2025 2:30 PM EST Office Visit [facility] [address] [place] [address] Mata Smalls MD [address] [place] [id number] Malignant neoplasm of ascending colon (CMS/HCC) (Primary Dx); 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 (BMI) of 40.0 or higher (CMS/HCC); Abdominal swelling Social History Tobacco Use Types Packs/Day Years Used Date Smoking Tobacco: Never Passive Smoke Exposure: Never Smokeless Tobacco: Never Tobacco Cessation:Counseling Given: Not Answered Alcohol Use Standard Drinks/Week Comments Never 0 [...] any time in the past 12 m [facility], were you homeless or living [...] Sign Reading Time Taken Comments Blood Pressure 138/66 01/09/2025 2:48 PM EST Pulse 62 01/09/2025 2:48 PM EST Temperature 36.7 C (98.1 F) 01/09/2025 2:48 PM EST Respiratory Rate - - Oxygen Saturation 95% 01/09/2025 2:48 PM EST Inhaled Oxygen Concentration - - Weight 108 kg (239 lb) 01/09/2025 2:48 PM EST Height 157.5 cm (5' 2 ) 01/09/2025 2:48 PM EST Body Mass Index 43.71 01/09/2025 2:48 PM EST documented in this encounter Functional Status * BP Answer Date of Assessment Author 138/66 01/09/2025 2:48 PM EST Rice, Mar alexandru * Temp Answer Date of Assessment Author 98.1 01/09/2025 2:48 PM EST Rice, Mar alexandru * Pulse Answer Date of Assessment Author 62 01/09/2025 2:48 PM EST Rice, Mar alexandru * SpO2 Answer Date of Assessment Author 95 01/09/2025 2:48 PM EST Rice, Mar alexandru * Height Answer Date of Assessment Author 62 01/09/2025 2:48 PM EST Rice, Mar alexandru * Weight Answer Date of Assessment Author 3824 01/09/2025 2:48 PM EST Rice, Mar alexandru * BMI (Calculated) Answer Date of Assessment Author 43.8 01/09/2025 2:48 PM EST Rice, Mar alexandru * Percent Excess Weight Loss Answer Date of Assessment Author 0 01/09/2025 2:48 PM EST Rice, Mar alexandru * Total Weight Change Percent Answer Date of Assessment Author 2222 01/09/2025 2:48 PM EST Rice, Mar alexandru * Weight Change Since Preop Answer Date of Assessment Author 108.39 01/09/2025 2:48 PM EST Rice, Mar alexandru * Initial Excess Weight Answer Date of Assessment Author -49.9 01/09/2025 2:48 PM EST Rice, Mar alexandru * IBW in lbs (Bariatric) Answer Date of Assessment Author 110 01/09/2025 2:48 PM EST Rice, Mar alexandru * Weight Change Since Last Visit Answer Date of Assessment Author 108.39 01/09/2025 2:48 PM EST Rice, Mar alexandru * IBW in kg (Bariatric) Answer Date of Assessment Author 49.9 01/09/2025 2:48 PM EST Rice, Mar alexandru * Percent of IBW Answer Date of Assessment Author 7,663.33 01/09/2025 2:48 PM EST Rice, Mar alexandru * EBW (kg) Answer Date of Assessment Author 3,822.59 01/09/2025 2:48 PM EST Rice, Mar alexandru * EBW (lbs) Answer Date of Assessment Author 3,817.13 01/09/2025 2:48 PM EST Rice, Mar alexandru * Appointment Type Answer Date of Assessment Author Surveillance appointment 01/09/2025 12:31 PM EST Mychart, Generic * Taking care of myself Answer Date of Assessment Author 1 01/09/2025 12:31 PM EST Mychart, Generic * Housing Answer Date of Assessment Author 0 01/09/2025 12:31 PM EST Mychart, Generic * Finances Answer Date of Assessment Author 0 01/09/2025 12:31 PM EST Mychart, Generic * Transportation Answer Date of Assessment Author 0 01/09/2025 12:31 PM EST Mychart, Generic * Work Answer Date of Assessment Author 0 01/09/2025 12:31 PM EST Mychart, Generic * Treatment Decisions Answer Date of Assessment Author 0 01/09/2025 12:31 PM EST Mychart, Generic * Relationship with children Answer Date of Assessment Author 0 01/09/2025 12:31 PM EST Mychart, Generic * Relationship with spouse or partner Answer Date of Assessment Author 0 01/09/2025 12:31 PM EST Mychart, Generic * Ability to have children Answer Date of Assessment Author 0 01/09/2025 12:31 PM EST Mychart, Generic * Sadness or Depression Answer Date of Assessment Author 1 01/09/2025 12:31 PM EST Mychart, Generic * Fear Answer Date of Assessment Author 1 01/09/2025 12:31 PM EST Mychart, Generic * Loss of interest or enjoyment Answer Date of Assessment Author 1 01/09/2025 12:31 PM EST Mychart, Generic * Changes in eating Answer Date of Assessment Author 1 01/09/2025 12:31 PM EST Mychart, Generic * Fatigue Answer Date of Assessment Author 1 01/09/2025 12:31 PM EST Mychart, Generic * Memory/Concentration Answer Date of Assessment Author 1 01/09/2025 12:31 PM EST Mychart, Generic * Pain Answer Date of Assessment Author 1 01/09/2025 12:31 PM EST Mychart, Generic * Sexual health Answer Date of Assessment Author 0 01/09/2025 12:31 PM EST Mychart, Generic * Sleep Answer Date of Assessment Author 1 01/09/2025 12:31 PM EST Mychart, Generic * Substance use Answer Date of Assessment Author 0 01/09/2025 12:31 PM EST Mychart, Generic * Distress Thermometer Score Question Answer Date of Assessment Author Based on the past week, rach noyola select the number that best describes how much distress you have had. 0 being none and 10 being the most extreme. 10 01/09/2025 2:00 PM EST Isabell Schaefera nda * Emotional Concerns Question Answer Date of Assessment Author Worry or anxiety 1 01/09/2025 2:00 PM EST Isabell Spannanda * Weight Change 24 hrs Answer Date of Assessment Author 1.41 01/09/2025 2:48 PM EST Isabell Schaefer alexandru * Taking care of others Answer Date of Assessment Author 1 01/09/2025 12:31 PM EST Mychart, Generic * School Answer Date of Assessment Author No 01/09/2025 12:31 PM EST Mychart, Generic * Insurance Answer Date of Assessment Author 0 01/09/2025 12:31 PM EST Mychart, Generic * acute care physician Answer Date of Assessment Author 0 01/09/2025 12:31 PM EST Mychart, Generic * Having enough food Answer Date of Assessment Author 0 01/09/2025 12:31 PM EST Mychart, Generic * Access to medicine Answer Date of Assessment Author 0 01/09/2025 12:31 PM EST Mychart, Generic * Tobacco use Answer Date of Assessment Author 0 01/09/2025 12:31 PM EST Mychart, Generic * Loss or change of physical abilities Answer Date of Assessment Author 1 01/09/2025 12:31 PM EST Mychart, Generic * Grief or loss Answer Date of Assessment Author 1 01/09/2025 12:31 PM EST Mychart, Generic * Loneliness Answer Date of Assessment Author 0 01/09/2025 12:31 PM EST Mychart, Generic * Anger Answer Date of Assessment Author 0 01/09/2025 12:31 PM EST Mychart, Generic * Changes in appearance Answer Date of Assessment Author 1 01/09/2025 12:31 PM EST Mychart, Generic * Feelings of worthlessness or being a burden Answer Date of Assessment Author 1 01/09/2025 12:31 PM EST Mychart, Generic * Relationship with family members Answer Date of Assessment Author 0 01/09/2025 12:31 PM EST Mychart, Generic * Communication with health care team Answer Date of Assessment Author 0 01/09/2025 12:31 PM EST Mychart, Generic * Relationship with friends or coworkers Answer Date of Assessment Author 0 01/09/2025 12:31 PM EST Mychart, Generic * Sense of meaning or purpose Answer Date of Assessment Author 0 01/09/2025 12:31 PM EST Mychart, Generic * Change in vesna or beliefs Answer Date of Assessment Author 0 01/09/2025 12:31 PM EST Mychart, Generic * , dying or afterlife Answer Date of Assessment Author 0 01/09/2025 12:31 PM EST Mychart, Generic * Conflict between beliefs and cancer treatments Answer Date of Assessment Author 0 01/09/2025 12:31 PM EST Mychart, Generic * Relationship with the sacred Answer Date of Assessment Author 0 01/09/2025 12:31 PM EST Mychart, Generic * Ritual or dietary needs Answer Date of Assessment Author 0 01/09/2025 12:31 PM EST Mychart, Generic * BSA (Calculated - sq m) Answer Date of Assessment Author 2.18 01/09/2025 2:48 PM EST Rice, Mar alexandru * BMI (Calculated) Answer Date of Assessment Author 43.7 01/09/2025 2:48 PM EST Rice, Mar alexandru * IBW/kg (Calculated) Male Answer Date of Assessment Author 54.6 01/09/2025 2:48 PM EST Rice, Mar alexandru * IBW/kg (Calculated) Female Answer Date of Assessment Author 50.1 01/09/2025 2:48 PM EST Rice, Mar alexandru * IBW/kg (Calculated) Answer Date of Assessment Author 50.1 01/09/2025 2:48 PM EST Rice, Mar alexandru * Weight in (lb) to have BMI = 25 Answer Date of Assessment Author 136.4 01/09/2025 2:48 PM EST Rice, Mar alexandru * BMI (Calculated) Answer Date of Assessment Author 43.8 01/09/2025 2:48 PM EST Rice, Mar alexandru * Percent Excess Weight Loss Answer Date of Assessment Author 0 01/09/2025 2:48 PM EST Rice, Mar alexandru * Weight Change Since Preop Answer Date of Assessment Author 108.41 01/09/2025 2:48 PM EST Rice, Mar alexandru * Initial Excess Weight Answer Date of Assessment Author -49.9 01/09/2025 2:48 PM EST Rice, Mar alexandru * IBW in kg (Bariatric) Answer Date of Assessment Author 49.9 01/09/2025 2:48 PM EST Rice, Mar alexandru * IBW in lb (Bariatric) Answer Date of Assessment Author 110 01/09/2025 2:48 PM EST Rice, Mar alexandru * Weight Change Since Last Visit Answer Date of Assessment Author 108.41 01/09/2025 2:48 PM EST Rice, Mar alexandru * Percent of IBW Answer Date of Assessment Author 217.27 01/09/2025 2:48 PM EST Rice, Mar alexandru * EBW (kg) Answer Date of Assessment Author 58.49 01/09/2025 2:48 PM EST Rice, Mar alexandru * EBW (lb) Answer Date of Assessment Author 129 01/09/2025 2:48 PM EST Rice, Mar alexandru * Difference in Weight Since Last Visit Answer Date of Assessment Author 1.41 01/09/2025 2:48 PM EST Rice, Mar alexandru * Temp (in Celsius) for [place] Answer Date of Assessment Author 36.7 01/09/2025 2:48 PM EST Rice, Ma alexander * IBW/kg (Calculated) Answer Date of Assessment Author 50.1 01/09/2025 2:48 PM EST Rice, Mar alexandru * Adult Low Range Vt 6mL/kg Answer Date of Assessment Author 300.6 01/09/2025 2:48 PM EST Rice, Mar alexandru * Adult Moderate Range Vt 8mL/kg Answer Date of Assessment Author 400.8 01/09/2025 2:48 PM EST Rice, Mar alexandru * Adult High Range Vt 10mL/kg Answer Date of Assessment Author 501 01/09/2025 2:48 PM EST Rice, Mar alexandru * Pain Score Answer Date of Assessment Author 7 01/09/2025 2:47 PM EST Rice, Mar alexandru * Pain Screening/Additional Assessments Question Answer Date of Assessment Author Pain Screening/Assessments Pain Screening 01/09/2025 2 :47 PM EST Rice, Sandra * Pain Screening Answer Date of Assessment Author 0-10 01/09/2025 2:47 PM EST Rice, Mar alexandru * BP Answer Date of Assessment Author 138/66 01/09/2025 2:48 PM EST Rice, Mar alexandru * Temp Answer Date of Assessment Author 98.1 01/09/2025 2:48 PM EST Rice, Mar alexandru * Pulse Answer Date of Assessment Author 62 01/09/2025 2:48 PM EST Rice, Mar alexandru * SpO2 Answer Date of Assessment Author 95 01/09/2025 2:48 PM EST Rice, Mar alexandru * Height Answer Date of Assessment Author 62 01/09/2025 2:48 PM EST Rice, Mar alexandru * Weight Answer Date of Assessment Author 3824 01/09/2025 2:48 PM EST Rice, Mar alexandru * Appointment Type Answer Date of Assessment Author Surveillance appointment 01/09/2025 12:31 PM EST Mychart, Generic * Taking care of myself Answer Date of Assessment Author 1 01/09/2025 12:31 PM EST Mychart, Generic * Housing Answer Date of Assessment Author 0 01/09/2025 12:31 PM EST Mychart, Generic * Finances Answer Date of Assessment Author 0 01/09/2025 12:31 PM EST Mychart, Generic * Transportation Answer Date of Assessment Author 0 01/09/2025 12:31 PM EST Mychart, Generic * Work Answer Date of Assessment Author 0 01/09/2025 12:31 PM EST Mychart, Generic * Treatment Decisions Answer Date of Assessment Author 0 01/09/2025 12:31 PM EST Mychart, Generic * Relationship with children Answer Date of Assessment Author 0 01/09/2025 12:31 PM EST Mychart, Generic * Relationship with spouse or partner Answer Date of Assessment Author 0 01/09/2025 12:31 PM EST Mychart, Generic * Ability to have children Answer Date of Assessment Author 0 01/09/2025 12:31 PM EST Mychart, Generic * Sadness or Depression Answer Date of Assessment Author 1 01/09/2025 12:31 PM EST Mychart, Generic * Fear Answer Date of Assessment Author 1 01/09/2025 12:31 PM EST Mychart, Generic * Loss of interest or enjoyment Answer Date of Assessment Author 1 01/09/2025 12:31 PM EST Mychart, Generic * Changes in eating Answer Date of Assessment Author 1 01/09/2025 12:31 PM EST Mychart, Generic * Fatigue Answer Date of Assessment Author 1 01/09/2025 12:31 PM EST Mychart, Generic * Memory/Concentration Answer Date of Assessment Author 1 01/09/2025 12:31 PM EST Mychart, Generic * Pain Answer Date of Assessment Author 1 01/09/2025 12:31 PM EST Mychart, Generic * Sexual health Answer Date of Assessment Author 0 01/09/2025 12:31 PM EST Mychart, Generic * Sleep Answer Date of Assessment Author 1 01/09/2025 12:31 PM EST Mychart, Generic * Substance use Answer Date of Assessment Author 0 01/09/2025 12:31 PM EST Mychart, Generic * Distress Thermometer Score Question Answer Date of Assessment Author Based on the past week, rach noyola select the number that best describes how much distress you have had. 0 being none and 10 being the most extreme. 10 01/09/2025 2:00 PM EST Francoise Schaefer nda * Emotional Concerns Question Answer Date of Assessment Author Worry or anxiety 1 01/09/2025 2:00 PM EST Sandra Spann * Taking care of others Answer Date of Assessment Author 1 01/09/2025 12:31 PM EST Mychart, Generic * School Answer Date of Assessment Author No 01/09/2025 12:31 PM EST Mychart, Generic * Insurance Answer Date of Assessment Author 0 01/09/2025 12:31 PM EST Mychart, Generic * acute care physician Answer Date of Assessment Author 0 01/09/2025 12:31 PM EST Mychart, Generic * Having enough food Answer Date of Assessment Author 0 01/09/2025 12:31 PM EST Mychart, Generic * Access to medicine Answer Date of Assessment Author 0 01/09/2025 12:31 PM EST Mychart, Generic * Tobacco use Answer Date of Assessment Author 0 01/09/2025 12:31 PM EST Mychart, Generic * Loss or change of physical abilities Answer Date of Assessment Author 1 01/09/2025 12:31 PM EST Mychart, Generic * Grief or loss Answer Date of Assessment Author 1 01/09/2025 12:31 PM EST Mychart, Generic * Loneliness Answer Date of Assessment Author 0 01/09/2025 12:31 PM EST Mychart, Generic * Anger Answer Date of Assessment Author 0 01/09/2025 12:31 PM EST Mychart, Generic * Changes in appearance Answer Date of Assessment Author 1 01/09/2025 12:31 PM EST Mychart, Generic * Feelings of worthlessness or being a burden Answer Date of Assessment Author 1 01/09/2025 12:31 PM EST Mychart, Generic * Relationship with family members Answer Date of Assessment Author 0 01/09/2025 12:31 PM EST Mychart, Generic * Communication with health care team Answer Date of Assessment Author 0 01/09/2025 12:31 PM EST Mychart, Generic * Relationship with friends or coworkers Answer Date of Assessment Author 0 01/09/2025 12:31 PM EST Mychart, Generic * Sense of meaning or purpose Answer Date of Assessment Author 0 01/09/2025 12:31 PM EST Mychart, Generic * Change in vesna or beliefs Answer Date of Assessment Author 0 01/09/2025 12:31 PM EST Mychart, Generic * , dying or afterlife Answer Date of Assessment Author 0 01/09/2025 12:31 PM EST Mychart, Generic * Conflict between beliefs and cancer treatments Answer Date of Assessment Author 0 01/09/2025 12:31 PM EST Mychart, Generic * Relationship with the sacred Answer Date of Assessment Author 0 01/09/2025 12:31 PM EST Mychart, Generic * Ritual or dietary needs Answer Date of Assessment Author 0 01/09/2025 12:31 PM EST Mychart, Generic * BSA (Calculated - sq m) Answer Date of Assessment Author 2.18 01/09/2025 2:48 PM EST Rice, Mar alexandru * BMI (Calculated) Answer Date of Assessment Author 43.7 01/09/2025 2:48 PM EST Rice, Mar alexandru * Weight in (lb) to have BMI = 25 Answer Date of Assessment Author 136.4 01/09/2025 2:48 PM EST Rice, Mar alexandru * Pain Score Answer Date of Assessment Author 7 01/09/2025 2:47 PM EST Rice, Mar alexandru documented as of this encounter Mental Status * BP Answer Entry Date Author 138/66 01/09/2025 2:48 PM EST Rice, Mar alexandru * Temp Answer Entry Date Author 98.1 01/09/2025 2:48 PM EST Rice, Mar alexandru * Pulse Answer Entry Date Author 62 01/09/2025 2:48 PM EST Rice, Mar alexandru * SpO2 Answer Entry Date Author 95 01/09/2025 2:48 PM EST Rice, Mar alexandru * Height Answer Entry Date Author 62 01/09/2025 2:48 PM EST Rice, Mar alexandru * Weight Answer Entry Date Author 3824 01/09/2025 2:48 PM EST Rice, Mar alexandru * BMI (Calculated) Answer Entry Date Author 43.8 01/09/2025 2:48 PM EST Rice, Mar alexandru * Percent Excess Weight Loss Answer Entry Date Author 0 01/09/2025 2:48 PM EST Rice, Mar alexandru * Total Weight Change Percent Answer Entry Date Author 22201/09/2025 2:48 PM EST Rice, Mar alexandru * Weight Change Since Preop Answer Entry Date Author 108.39 01/09/2025 2:48 PM EST Rice, Mar alexandru * Initial Excess Weight Answer Entry Date Author -49.9 01/09/2025 2:48 PM EST Rice, Mar alexandru * IBW in lbs (Bariatric) Answer Entry Date Author 110 01/09/2025 2:48 PM EST Rice, Mar alexandru * Weight Change Since Last Visit Answer Entry Date Author 108.39 01/09/2025 2:48 PM EST Rice, Mar alexandru * IBW in kg (Bariatric) Answer Entry Date Author 49.9 01/09/2025 2:48 PM EST Rice, Mar alexandru * Percent of IBW Answer Entry Date Author 7,663.33 01/09/2025 2:48 PM EST Rice, Mar alexandru * EBW (kg) Answer Entry Date Author 3,822.59 01/09/2025 2:48 PM EST Rice, Mar alexandru * EBW (lbs) Answer Entry Date Author 3,817.13 01/09/2025 2:48 PM EST Rice, Mar alexandru * Appointment Type Answer Entry Date Author Surveillance appointment 01/09/2025 12:31 PM EST Mychart, Generic * Taking care of myself Answer Entry Date Author 1 01/09/2025 12:31 PM EST Mychart, Generic * Housing Answer Entry Date Author 0 01/09/2025 12:31 PM EST Mychart, Generic * Finances Answer Entry Date Author 0 01/09/2025 12:31 PM EST Mychart, Generic * Transportation Answer Entry Date Author 0 01/09/2025 12:31 PM EST Mychart, Generic * Work Answer Entry Date Author 0 01/09/2025 12:31 PM EST Mychart, Generic * Treatment Decisions Answer Entry Date Author 0 01/09/2025 12:31 PM EST Mychart, Generic * Relationship with children Answer Entry Date Author 0 01/09/2025 12:31 PM EST Mychart, Generic * Relationship with spouse or partner Answer Entry Date Author 0 01/09/2025 12:31 PM EST Mychart, Generic * Ability to have children Answer Entry Date Author 0 01/09/2025 12:31 PM EST Mychart, Generic * Sadness or Depression Answer Entry Date Author 1 01/09/2025 12:31 PM EST Mychart, Generic * Fear Answer Entry Date Author 1 01/09/2025 12:31 PM EST Mychart, Generic * Loss of interest or enjoyment Answer Entry Date Author 1 01/09/2025 12:31 PM EST Mychart, Generic * Changes in eating Answer Entry Date Author 1 01/09/2025 12:31 PM EST Mychart, Generic * Fatigue Answer Entry Date Author 1 01/09/2025 12:31 PM EST Mychart, Generic * Memory/Concentration Answer Entry Date Author 1 01/09/2025 12:31 PM EST Mychart, Generic * Pain Answer Entry Date Author 1 01/09/2025 12:31 PM EST Mychart, Generic * Sexual health Answer Entry Date Author 0 01/09/2025 12:31 PM EST Mychart, Generic * Sleep Answer Entry Date Author 1 01/09/2025 12:31 PM EST Mychart, Generic * Substance use Answer Entry Date Author 0 01/09/2025 12:31 PM EST Mychart, Generic * Distress Thermometer Score Question Answer Entry Date Author Based on the past week, rach noyola select the number that best describes how much distress you have had. 0 being none and 10 being the most extreme. 10 01/09/2025 2:00 PM EST Rice, Francoise nda * Emotional Concerns Question Answer Entry Date Author Worry or anxiety 1 01/09/2025 2:00 PM EST R ice, Sandra * Weight Change 24 hrs Answer Entry Date Author 1.41 01/09/2025 2:48 PM EST Rice, Mar alexandru * Taking care of others Answer Entry Date Author 1 01/09/2025 12:31 PM EST Mychart, Generic * School Answer Entry Date Author No 01/09/2025 12:31 PM EST Mychart, Generic * Insurance Answer Entry Date Author 0 01/09/2025 12:31 PM EST Mychart, Generic * acute care physician Answer Entry Date Author 0 01/09/2025 12:31 PM EST Mychart, Generic * Having enough food Answer Entry Date Author 0 01/09/2025 12:31 PM EST Mychart, Generic * Access to medicine Answer Entry Date Author 0 01/09/2025 12:31 PM EST Mychart, Generic * Tobacco use Answer Entry Date Author 0 01/09/2025 12:31 PM EST Mychart, Generic * Loss or change of physical abilities Answer Entry Date Author 1 01/09/2025 12:31 PM EST Mychart, Generic * Grief or loss Answer Entry Date Author 1 01/09/2025 12:31 PM EST Mychart, Generic * Loneliness Answer Entry Date Author 0 01/09/2025 12:31 PM EST Mychart, Generic * Anger Answer Entry Date Author 0 01/09/2025 12:31 PM EST Mychart, Generic * Changes in appearance Answer Entry Date Author 1 01/09/2025 12:31 PM EST Mychart, Generic * Feelings of worthlessness or being a burden Answer Entry Date Author 1 01/09/2025 12:31 PM EST Mychart, Generic * Relationship with family members Answer Entry Date Author 0 01/09/2025 12:31 PM EST Mychart, Generic * Communication with health care team Answer Entry Date Author 0 01/09/2025 12:31 PM EST Mychart, Generic * Relationship with friends or coworkers Answer Entry Date Author 0 01/09/2025 12:31 PM EST Mychart, Generic * Sense of meaning or purpose Answer Entry Date Author 0 01/09/2025 12:31 PM EST Mychart, Generic * Change in vesna or beliefs Answer Entry Date Author 0 01/09/2025 12:31 PM EST Mychart, Generic * , dying or afterlife Answer Entry Date Author 0 01/09/2025 12:31 PM EST Mychart, Generic * Conflict between beliefs and cancer treatments Answer Entry Date Author 0 01/09/2025 12:31 PM EST Mychart, Generic * Relationship with the sacred Answer Entry Date Author 0 01/09/2025 12:31 PM EST Mychart, Generic * Ritual or dietary needs Answer Entry Date Author 0 01/09/2025 12:31 PM EST Mychart, Generic * Patient reported weight Answer Entry Date Author 230 01/09/2025 12:29 PM EST Mychart, Generic * Patient reported height Answer Entry Date Author 5'3 01/09/2025 12:29 PM EST Mychart, Generic * Patient reported weight one month ago Answer Entry Date Author 210 01/09/2025 12:29 PM EST Mychart, Generic * Patient reported weight six months ago Answer Entry Date Author 180 01/09/2025 12:29 PM EST Mychart, Generic * During the past two weeks my weight has Answer Entry Date Author increased 01/09/2025 12:29 PM EST Mychart, Generic * Food Intake Answer Entry Date Author less than usual 01/09/2025 12:29 PM EST Mychart, Generic * No problems eating Answer Entry Date Author No 01/09/2025 12:29 PM EST Mychart, Generic * Other symptoms Answer Entry Date Author Yes 01/09/2025 12:29 PM EST Mychart, Generic * Patient rates activity and functions over past month as Answer Entry Date Author able to do little activity a nd spend most of the day in bed or chair 01/09/2025 12:29 PM EST Mychart, Generic * Weight change % 6 months Answer Entry Date Author 27.78 01/09/2025 12:29 PM EST Mychart, Generic * Weight change % 1 month Answer Entry Date Author 9.52 01/09/2025 12:29 PM EST Mychart, Generic * Box 1 Answer Entry Date Author 0 01/09/2025 12:29 PM EST Mychart, Generic * Box 2 Answer Entry Date Author 4 01/09/2025 12:29 PM EST Mychart, Generic * Scoring Weight Loss Answer Entry Date Author 0 01/09/2025 12:29 PM EST Mychart, Generic * Box 3 Answer Entry Date Author 8 01/09/2025 12:29 PM EST Mychart, Generic * Box 4 Answer Entry Date Author 3 01/09/2025 12:29 PM EST Mychart, Generic * PG-SGA (SF) -(Additive Score box 1-4) Answer Entry Date Author 15 01/09/2025 12:29 PM EST Mychart, Generic * No appetite, just did not feel like eating Answer Entry Date Author Yes 01/09/2025 12:29 PM EST Mychart, Generic * Nausea Answer Entry Date Author Yes 01/09/2025 12:29 PM EST Mychart, Generic * Constipation Answer Entry Date Author No 01/09/2025 12:29 PM EST Mychart, Generic * Mouth sores Answer Entry Date Author No 01/09/2025 12:29 PM EST Mychart, Generic * Things taste funny or have no taste Answer Entry Date Author No 01/09/2025 12:29 PM EST Mychart, Generic * Problems swallowing Answer Entry Date Author No 01/09/2025 12:29 PM EST Mychart, Generic * Pain Answer Entry Date Author No 01/09/2025 12:29 PM EST Mychart, Generic * Diarrhea Answer Entry Date Author No 01/09/2025 12:29 PM EST Mychart, Generic * Dry mouth Answer Entry Date Author Yes 01/09/2025 12:29 PM EST Mychart, Generic * Smells bother me Answer Entry Date Author No 01/09/2025 12:29 PM EST Mychart, Generic * Feel full quickly Answer Entry Date Author Yes 01/09/2025 12:29 PM EST Mychart, Generic * Fatigue Answer Entry Date Author Yes 01/09/2025 12:29 PM EST Mychart, Generic * kg/cm or lbs/ft ? Answer Entry Date Author lbs/ft 01/09/2025 12:29 PM EST Mychart, Generic * Box 1 (A) Answer Entry Date Author 0 01/09/2025 12:29 PM EST Mychart, Generic * Global Assessment Score (Box 1 + Box 2 + Box 3 + Box 4 + Worksheet 4) Answer Entry Date Author 15 01/09/2025 12:29 PM EST Mychart, Generic * PG-SGA Categorical Stage Answer Entry Date Author C 01/09/2025 12:29 PM EST Mychart, Generic * BSA (Calculated - sq m) Answer Entry Date Author 2.18 01/09/2025 2:48 PM EST Rice, Mar alexandru * BMI (Calculated) Answer Entry Date Author 43.7 01/09/2025 2:48 PM EST Rice, Mar alexandru * IBW/kg (Calculated) Male Answer Entry Date Author 54.6 01/09/2025 2:48 PM EST Rice, Mar alexandru * IBW/kg (Calculated) Female Answer Entry Date Author 50.1 01/09/2025 2:48 PM EST Rice, Mar alexandru * IBW/kg (Calculated) Answer Entry Date Author 50.1 01/09/2025 2:48 PM EST Rice, Mar alexandru * Restart Pain Assessment Timer Answer Entry Date Author Yes 01/09/2025 2:47 PM EST Rice, Mar alexandru * Weight in (lb) to have BMI = 25 Answer Entry Date Author 136.4 01/09/2025 2:48 PM EST Rice, Mar laexandru * BMI (Calculated) Answer Entry Date Author 43.8 01/09/2025 2:48 PM EST Rice, Mar alexandru * Percent Excess Weight Loss Answer Entry Date Author 0 01/09/2025 2:48 PM EST Rice, Mar alexandru * Weight Change Since Preop Answer Entry Date Author 108.41 01/09/2025 2:48 PM EST Rice, Mar alexandru * Initial Excess Weight Answer Entry Date Author -49.9 01/09/2025 2:48 PM EST Rice, Mar alexandru * IBW in kg (Bariatric) Answer Entry Date Author 49.9 01/09/2025 2:48 PM EST Rice, Mar alexandru * IBW in lb (Bariatric) Answer Entry Date Author 110 01/09/2025 2:48 PM EST Rice, Mar alexandru * Weight Change Since Last Visit Answer Entry Date Author 108.41 01/09/2025 2:48 PM EST Rice, Mar alexandru * Percent of IBW Answer Entry Date Author 217.27 01/09/2025 2:48 PM EST Rice, Mar alexandru * EBW (kg) Answer Entry Date Author 58.49 01/09/2025 2:48 PM EST Rice, Mar alexandru * EBW (lb) Answer Entry Date Author 129 01/09/2025 2:48 PM EST Rice, Mar alexandru * Difference in Weight Since Last Visit Answer Entry Date Author 1.41 01/09/2025 2:48 PM EST Rice, Mar alexandru * Temp (in Celsius) for [place] Answer Entry Date Author 36.7 01/09/2025 2:48 PM EST Rice, Mar alexandru * IBW/kg (Calculated) Answer Entry Date Author 50.1 01/09/2025 2:48 PM EST Rice, Mar alexandru * Adult Low Range Vt 6mL/kg Answer Entry Date Author 300.6 01/09/2025 2:48 PM EST Rice, Mar alexandru * Adult Moderate Range Vt 8mL/kg Answer Entry Date Author 400.8 01/09/2025 2:48 PM EST Rice, Mar alexandru * Adult High Range Vt 10mL/kg Answer Entry Date Author 501 01/09/2025 2:48 PM EST Rice, Mar alexandru * Pain Score Answer Entry Date Author 7 01/09/2025 2:47 PM EST Rice, Mar alexandru * Pain Screening Answer Entry Date Author 0-10 01/09/2025 2:47 PM EST Rice, Mar alexandru documented in this encounter Miscellaneous Notes * Progress Notes - Pete Castillo - 01/09/2025 2:30 PM EST [facility] Colon & Rectal Surgery 01/09/2025 Chief Complaint: Malignant neoplasm of ascending colon (CMS/HCC) [C18.2] Cancer Staging Malignant neoplasm of ascending colon (CMS/HCC) Staging form: Colon and Rectum, AJCC 8th Edition - Pathologic stage from 07/10/2024: Stage IIA (pT3, pN0, cM0) - Signed by Mata Smalls MD on 01/09/2025 Histopathologic type: Adenocarcinoma, NOS Stage prefix: Initial diagnosis Total positive nodes: 0 Histologic grading system: 4 grade system Histologic grade (G): G3 Tumor deposits (TD): Absent Perineural invasion (PNI): Absent HPI: Gina Stone is a 79 y.o. female (H heart failure s/p heart catheterization, HTN, arthritis, and HLD) with stage 2A ascending colon cancer s/p laparoscopic right colectomy on 07/10/24. She is here for 6 month follow-up. Today she is feeling well. Her bowel movements are perfect occurring 2-3x per day, has normal consistency, no diarrhea or constipation. She has been experiencing abdominal swelling since surgery with associated what she would describe as gallbladder pain. There is no described drainage from the incision sites. She also said that she is the heaviest she ever has been. She described that she urinates 12x per day and still does not lose any weight after. ROS: A complete 14 point review of systems was done with the patient. These are all negative with the exception of what is noted in the HPI. Physical Exam: Vitals: 01/09/25 1448 BP: 138/66 Pulse: 62 Temp: 36.7 ??C (98.1 ??F) SpO2: 95% Body mass index is 43.71 kg/m??. GEN: NAD HEENT: NCAT, EOMI RESP: Equal bilateral chest rise, normal work of breathing CV: RRR, appears well perfused ABD: Soft, nontender, nondistended EXT: No gross deformities MSK: Full ROM in BL UE NEURO: No focal deficits, AOx3 PSYCH: Normal mood and affect PERIANAL/PERINEUM: n/a ALLAN: n/a LABORATORIES AND IMAGING STUDIES: I personally reviewed all the laboratory examinations and imagingstudies below: Lab Results Component Value Date WBC 7.77 07/15/2024 RBC 3.54 (L) 07/15/2024 HGB 9.6 (L) 07/15/2024 HCT 30.0 (L) 07/15/2024 MCV 85 07/15/2024 MCHC 32.0 07/15/2024 RDW 17.4 (H) 07/15/2024 PLT 255 07/15/2024 MPV 12.3 07/15/2024 Lab Results Component Value Date BUN 25 (H) 07/15/2024 CL 108 (H) 07/15/2024 NA 141 07/15/2024 K 4.2 07/15/2024 TP 7.0 06/20/2024 AST 19 06/20/2024 ALT 17 06/20/2024 Lab Results Component Value Date CEA 2.9 01/09/2025 CEA 4.3 (H) 06/20/2024 Signatera pending I visualized the recent imaging and discussed the current radiology findings with the patient in detail and answered all questions. === 01/09/25 === CT CHEST W IV CONTRAST - Narrative - CLINICAL INDICATION: colon cancer TECHNIQUE: Multiple axial [...] acute fracture. No obvious aggressive bony lesions. - Impression - Chest: No metastatic disease within the chest. ABDOMEN: Postsurgical changes of interval right hemicolectomy with ileocolic anastomosis without evidence oflocal disease recurrence. Unchanged indeterminate bilateral adrenal nodules [...] Pola Duval MD on 01/09/2025 3:00 PM ==01/09/25== CT ABDOMEN PELVIS W IV CONTRAST RESULTS PENDING Assessment/Plan Gina Stone is a 79 year old female with stage 2A ascending colon cancer s/p lap right colectomy on 6 month follow-up. Scans (CT CAP) and labs (CEA) show no evidence of disease progression. It is also safe for her to undergo cholecystectomy. Need for more frequent signatera checks (every 3 months)due to G3 poorly differentiated pathology. CT does not show cause of abdominal swelling. PLAN: -Signatera 3 months -RTC [address] abdomen, pelvis and chest. -Colonoscopy June 2025 Problem List Items Addressed This Visit Digestive 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 (BMI) of 40.0 or higher (CMS/HCC) Malignant neoplasm of ascending colon (CMS/HCC) - Primary Relevant Orders CT Chest w IV Contrast CT Abdomen Pelvis w IV Contrast CEA, Serum Signatera Only Single Draw Signatera Only (Spencer Managed) Other Visit Diagnoses Abdominal swelling Pete Castillo, MS3 Cosigned by Mata Smalls MD at 01/19/2025 11:45 AM EST Associated attestation - Mata Smalls MD - 01/19/2025 11:45 AM EST I saw and evaluated the patient with the medical/MARBLE RUBBER/PA student. I discussed the case with the medical/MARBLE RUBBER/PA student and agree with the findings and plan as documented. I personally performed the Examand Medical Decision Making. documented in this encounter Plan of Treatment Upcoming Encounters Date Type Department Care Team (Latest Contact Info) Description 07/10/2025 12:00 PM EDT Appointment [facility] [address] [place] [address] 07/10/2025 2:30 PM EDT Office Visit [facility] Multidisciplinary Oncology Clinic [address] [place] [phone] Mata Smalls MD [address] [place] [address] 07/10/2025 2:30 PM EDT Clinical Support [facility] Multidisciplinary Oncology Clinic [address] [place] [phone] Scheduled Orders Name Type Priority Associated Diagnoses Orde r Schedule CT Chest w IV Contrast Imaging Routine Malignant neoplasm of ascending colon (CMS/HCC) Expected: 07/10/2025 (Approximate), Expires: 07/13/2026 CT Abdomen Pelvis w IV Contrast Imaging Routine Malignant neoplasm of ascending colon (CMS/HCC) Expected: 07/10/2025 (Approximate), Expires: 07/13/2026 CEA, Serum Lab Routine Malignant neoplasm of ascending colon (CMS/HCC) Expected: 07/10/2025 (Approximate), Expires: 07/13/2026 Signatera Only Single Draw Lab Routine Malignant neoplasm of ascending colon (CMS/HCC) Expected: 07/10/2025 (Approximate), Expires: 07/13/2026 Signatera Only (Spencer Managed) Lab Routine Malignant neoplasm of ascending colon (CMS/HCC) Expected: 04/11/2025 (Approximate), Expires: 07/13/2026 documented as of this encounter Visit Diagnoses Diagnosis Malignant neoplasm of ascending colon (CMS/HCC)- Primary Malignant neoplasm of ascending colon 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 (BMI) of 40.0 or higher (CMS/HCC) Abdominal swelling documented in this encounter Additional Health Concerns Assessment Noted Time A fall risk assessment has been complete d for the patient 01/09/2025 2:50 PM EST A Body Mass Index follow-up plan has been documented for the patient 01/19/2025 11:45 AM EST documented as of this encounter Care Teams Second Floor Operator Relationship Specialty Start Date End Date Jose Mendoza MD [facility] [id number] PCP - General Internal Medicine 05/23/24 documented as of this encounter
--- OUTSIDE RECORDS SUMMARY | 2025-02-08 11:30 | XMS_ITS | Encounter Summary ---
[facility] Address [address] [place] [place] [address] Care Team Providers Care Quality Worker Name Role Phone Jose Mendoza MD Primary Care Provider [phone] Reason for Referral * Diagnostic Imaging (Routine) - Authorized Specialty Diagnoses / Procedures Referred By Contac t Referred To Contact Diagnoses Chronic diastolic heart failure Nonrheumatic mitral valve regurgitation Procedures Adult Transthoracic Echo Complete W/ Cont if Necessary Per Protocol Ayesha Galo APRN [address] [place] [address] [place] [address] Phone: tel: fax: [facility] [place] [address] [address] [place] [address] Phone: tel: fax: Referral ID Status Reason Start Date Expiration Date V isits Requested Visits Authorized [id number] Authorized 02/08/2025 05/10/2026 1 1 Reason for Visit * Reason Comments Shortness of Breath Patient states sever shortness of breath. Walking a short distance with walker she gets short of breath. Patient states she get real short of breath when getting dressed. Edema Patient states her e ivette is mostly in her stomach. Coronary Artery Disease No chest, just s hort of breath. Encounter Details Date Type Department Care Team (Late st Contact Info) Description 02/08/2025 11:30 AM EST Office Visit [facility] [address] [place] [phone] Seivers, Ayesha W, BRANNER MACHINE TENDER [address] [place] [address] [place] [address] Chronic diastolic heart failure (Primary Dx); Nonrheumatic mitral valve regurgitation; Coronary artery disease involving huslia coronary artery of huslia heart without angina pectoris; Dyspnea on exertion Social History Tobacco Use Types Packs/Day Years Used Date Smoking Tobacco: Never Passive Smoke Exposure: Never Smokeless Tobacco: Never Tobacco Cessation:Counseling Given: No Alcohol Use Standard Drinks/Week Comments Never 0 [...] Sign Reading Time Taken Comments Blood Pressure 130/90 02/08/2025 11:34 AM EST Pulse 69 02/08/2025 11:34 AM EST Temperature - - Respiratory Rate - - Oxygen Saturation 96% 02/08/2025 11:34 AM EST Inhaled Oxygen Concentration - - Weight 110 kg (242 lb 6.4 oz) 02/08/2025 11:34 A M EST Height 160 cm (5' 3 ) 02/08/2025 11:34 AM EST Body Mass Index 42.94 02/08/2025 11:34 AM EST documented in this encounter Progress Notes * Ayesha Galo, BRANNER MACHINE TENDER - 02/08/2025 11:30 AM EST Images from the original note were not included. [facility] Provider Note Date: 02/08/2025 Name: Gina Stone : 1945 PCP: Jose Mendoza MD Chief Complaint Patient presents with Shortness of Breath Patient states sever shortness of breath. Walking a short distance with walker she gets short of breath. Patient states she get real short of breath when getting dressed. Edema Patient states her edema is mostly in her stomach. Coronary Artery Disease No chest, just short of breath. Subjective History of Present Illness Gina Stone is an 79-year-old female who presents for follow-up on diastolic heart failure, moderate mitral valve regurgitation, and coronary artery disease. She reports experiencing weight gain, which she attributes to fluid retention. She has undergone a breathing test but was unable to complete it due to difficulty breathing. Occasionally, she experiences chest tightness. Lasix is found to be more effective in reducing fluid retention. Currently, sheis not taking spironolactone she did not know she was suppose to be taking. Will plan to restart Spironolactone Gallbladder surgery has not yet been performed as the surgeon wanted to give it some time before proceeding. She went back to see her cancer doctor and is supposed to return in February 2025. The doctor mentioned that they need to perform the surgery because of where the previous cancer surgery was done. They plan to go through the belly button to address both issues, but it is really painful. Hergallbladder condition is worsening, and a couple of days ago, she almost vomited and experienced severe pain on her right side where her gallbladder is located. She is concerned about the possibilityof her gallbladder rupturing. She feels like everything is pushed up inside her, causing swelling. Advised patient if her abdominal pain gets worse she should go to the ER to be evaluated. Cardiology/sleep history 1. Coronary artery disease-stents LAD LCx and D1 2010, 2014 mild CAD, 2018 mild CAD with 40% RCA and 60% ostial PLB/circumflex 2. Sick sinus syndrome status post pacemaker 3. Carotid artery disease-mild 4. Hypertension 03/21/[address] [facility]- Non-flow limiting coronary disease. Widely patent LAD, [...] tricuspid regurgitation is present. RVSP is normal. Reports Denies Chest Pain [] [x] Shortness of Air [x] [] Palpitations [] [x] Edema [x] [] Dizziness [] [x] Syncope [] [x] Allergies Allergen Reactions Diltiazem Palpitations Crestor [Rosuvastatin] Myalgia Lescol [Fluvastatin] Myalgia Metoprolol Unknown - Low Severity Oseltamivir Dizziness Simvastatin Unknown - Low Severity Current Outpatient Medications: alendronate (FOSAMAX) 70 MG tablet, 1 tab(s) orally once a week for 90 days, Disp: , Rfl: aspirin 81 MG chewable [...] 6 HOURS MAYCAUSE DROWSINESS, Disp: , Rfl: ipratropium-albuterol (DUO-NEB) 0.5-2.5 mg/3 ml nebulizer, INHALE 1 vial via NEBULIZER EVERY 8 HOURS, Disp: , Rfl: isosorbide mononitrate (IMDUR) 60 MG 24 hr tablet, Take 1 tablet by mouth Daily., Disp: , Rfl: lisinopril (PRINIVIL,ZESTRIL) 20 MG tablet, , Disp: , Rfl: methocarbamol (ROBAXIN) 500 MG [...] PAIN MAY CAUSE DROWSINESS, Disp: , Rfl: spironolactone (ALDACTONE) 50 MG tablet, Take 1 tablet by mouth Daily., Disp: 90 tablet, Rfl: 3 Xarelto 20 MG tablet, Take 1 tablet [...] radial access; Surgeon: Dewayne Rios MD; Location: [facility] INV[facility] LOCATION; Service: Cardiovascular; Laterality: N/A; CATARACT EXTRACTION COLON SURGERY 07/10/2024 HYSTERECTOMY KNEE SURGERY PACEMAKER IMPLANTATION Family History Problem Relation Name Age of Onset Heart attack Mother Diabetes Mother COPD Father Heart failure Sister Other (Accident) Sister Pancreatic cancer Sister Heart attack Sister Other (Septic) Sister Lung cancer Brother Arthritis Brother Arthritis Brother Social History Socioeconomic History Marital status: Tobacco Use Smoking status: Never Passive exposure: Never Smokeless tobacco: Never Vaping Use Vaping status: Never Used Substance and Sexual Activity Alcohol use: Never Drug use: Never Sexual activity: Defer Objective Vital Signs: BP 130/90 (BP Location: Right arm, Patient Position: Sitting, Cuff Size: Large Adult) Pulse 69 Ht 160 cm (63 ) Wt 110 kg (242 lb 6.4 oz) SpO2 96% BMI 42.94 kg/m?? Estimated body mass index is 42.94 kg/m?? as calculated from the following: Height as of this encounter: 160 cm (63 ). Weight as of this encounter: 110 kg (242 lb 6.4 oz). Physical Exam Constitutional: Appearance: Normal appearance. She [...] content normal. Cognition and Memory: Memory normal. Results Assessment and Plan Diagnoses and all orders for this visit: 1. Chronic diastolic heart failure (Primary) - Adult Transthoracic Echo Complete W/ Cont if Necessary Per Protocol; Future - spironolactone (ALDACTONE) 50 MG tablet; Take 1 tablet by mouth Daily. Dispense: 90 tablet; Refill: 3 - Comprehensive Metabolic Panel; Future - CBC & Differential; Future - proBNP; Future - Magnesium; Future 2. Nonrheumatic mitral valve regurgitation - Adult Transthoracic Echo Complete W/ Cont if Necessary Per Protocol; Future 3. Coronary artery disease involving huslia coronary artery of huslia heart without angina pectoris - Comprehensive Metabolic Panel; Future - CBC & Differential; Future - proBNP; Future - Magnesium; Future 4. Dyspnea on exertion - spironolactone (ALDACTONE) 50 MG tablet; Take 1 tablet by mouth Daily. Dispense: 90 tablet; Refill: 3 - Comprehensive Metabolic Panel; Future - CBC & Differential; Future - proBNP; Future - Magnesium; Future Assessment & Plan 1. Diastolic heart failure. Her condition necessitates a comprehensive approach to manage fluid retention and ensure cardiac stability. An echocardiogram will be repeated to assess the current state of her heart. Will continue her Furosemide 40 mg daily. Spironolactone will be reintroduced into her treatment regimen. Laboratory tests will be ordered to monitor her fluid status, BNP for congestive heart failure, electrolytes, and kidney function. 2. Moderate mitral valve regurgitation. The condition will be monitored closely with the repeated echocardiogram to ensure stability and assess any progression. 3. Coronary artery disease. She reports occasional chest tightness that she feels is related to her abdominal issues. She has had a 9 lb weight gain since July. She denies any chest pain or palpitations. Patient to continue dietary modifications. Continue statin, aspirin, Xarelto, spironolactone, furosemide, nebivolol, lisinopril, and Isosorbide. 4. Dyspnea on Exertion. Patient feels her shortness of breath has worsened over the past 3 weeks. She reports sever shortness of breath with walking short distance on her walker and when getting dressed. Repeat Echo to evaluate. Follow-up The patient will follow up in 4 weeks. Recommendations: ER if symptoms increase, Report if any new/changing symptoms immediately, Limit salt, Elevate legs, and Compression hose Follow Up Return in about 4 weeks (around 03/08/2025) for Shortness of breath . Patient or patient sales representative trainee verbalized consent for the use of Ambient Listening during the visit with Ayesha Galo APRN for chart documentation. 02/08/2025 16:11 EST Patient was given instructions and counseling regarding her condition or for health maintenance advice. Please see specific information pulled into the AVS if appropriate. documented in this encounter Plan of Treatment Upcoming Encounters Date Type Department Care Team (Late st Contact Info) Description 02/27/2025 12:30 PM EST Ancillary Procedure [facility] [address] [place] [address] [place] [phone] 03/14/2025 1:30 PM EST Office Visit [facility] [address] [place] [address] [place] [phone] [place] [address] 06/04/2025 10:45 AM EDT Office Visit [facility] [address] [place] [address] [place] [phone] Reanna Krishnamurthy MD [address] [place] [address] [place] [address] 06/04/2025 10:45 AM EDT Clinical Support No Requirements [facility] [address] [place] [address] [place] [phone] Scheduled Orders Name Type Priority Associated Diagnoses Orde r Schedule Adult Transthoracic Echo Complete W/ Cont if Necessary Per Protocol Echocardiography Routine Chronic diastolic heart failure Nonrheumatic mitral valve regurgitation Expected: 03/08/2025, Expires: 02/08/2026 documented as of this encounter Results * Magnesium (02/13/2025) Blood us Ayesha W Seivers BRANNER MACHINE TENDER LAB BLOOD ORDERABLES Final R esult [facility]
[address] [place] [id number], * proBNP (02/13/2025) Blood us Ayesha W Seivers BRANNER MACHINE TENDER LAB BLOOD ORDERABLES Final R esult [facility]
[address] [place] [address], [place] [phone] * CBC & Differential (02/13/2025) Blood us Ayesha W Seivers BRANNER MACHINE TENDER LAB BLOOD ORDERABLES Final R esult Performing Organization Address [facility] Co de Phone Number [facility]
[address] [place] [address], [place] [phone] * Comprehensive Metabolic Panel (02/13/2025) Blood us Ayesha W Seivers BRANNER MACHINE TENDER LAB BLOOD ORDERABLES Final R esult Performing Organization Address [facility] de Phone Number [facility]
[address] [place] [address], documented in this encounter Visit Diagnoses Diagnosis Chronic diastolic heart failure- Primary Nonrheumatic mitral valve regurgitation Coronary artery disease involving huslia coronary artery of huslia heart without angina pectoris Dyspnea on exertion Other dyspnea and respiratory abnormality documented in this encounter Care Teams Quality Worker Relationship Specialty Start Date End Date Jose Mendoza MD [facility] [address] [place] [address] PCP - General Adolescent Medicine 08/03/22 documented as of this encounter
--- OUTSIDE RECORDS SUMMARY | 2025-02-21 09:27 | XMS_ITS | Clinical Summary ---
Author Organization [facility] Address [address] [place] [address] Care Team Providers Care Aircraft Accessories Mechanic Name Role Phone Jose Mendoza MD Primary Care Provider Allergies No known active allergies Medications alendronate [...] tablet by mouth daily. Active HYDROcodone-acetam inophen ([place]) 7.5-325 MG tablet Take 1 tablet by [...] exertion 01/31/2024 Coronary artery disease invo lving [place] coronary artery of [place] heart without angina pectoris 04/05/2023 Resolved Problems Problem Noted Date Diagnosed Date Resolved Date Malignant neoplasm of colon 06/20/2024 01/09/2025 Encounters Date Type Department Care Team Description 02/09/2025 Telephone [facility] [address] [place] [address] Mata Smalls MD Labs ([facility] ) 01/10/2025 Lab Requisition [facility] [address] [place] [address] Mata Smalls MD Malignant neoplasm of colon, unspecified (CMS/HCC) 01/09/2025 2:30 PM EST Office Visit [facility] [address] [place] [address] Mata Smalls MD Malignant neoplasm of ascending colon (CMS/HCC) (Primary Dx); 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 (BMI) of 40.0 or higher (CMS/HCC); Abdominal swelling 01/09/2025 11:39 AM EST - 01/09/2025 11:59 PM EST Hospital Encounter [facility] Rad[facility] [address] [place] [address] Malignant neoplasm of ascending colon (CMS/HCC) Discharge Disposition: Home or Self Care 01/09/2025 Social Work [facility] [address] [place] [address] Jhon Naqvi 01/09/2025 Travel from [...] were you homeless or living in a jail (including now)? No 07/11/2024 Utilities Answer Date [...] Info) Description 07/10/2025 12:[address] [facility] [address] [place] [address] 07/10/2025 2:30 PM EDT Office Visit [facility] Multidisciplinary Oncology Clinic [address] [place] [address] Mata Smalls MD [address] [place] [address] 07/10/2025 2:30 PM EDT Clinical Support [facility] [address] [place] [address] Health Maintenance Due Date Last Done Comments [...] or (1 - 1-dose 75+ series) 2018 [id number] Vaccine (3 - season) 2024 12/26/2020, 05/02/2020 [...] Procedure Name Priority Date/Time Associated Diagnosis Comments AP MISCELLANEOUS LAB TEST (SO) Routine 01/10/2025 12:00 AM EST Malignant neoplasm of colon, unspecified (CMS/HCC) SIGN[facility] ONLY Routine 01/09/2025 1:14 PM EST Malignant neoplasm of ascending colon (CMS/HCC) CEA, SERUM Routine 01/09/2025 1:14 PM EST Malignant neoplasm of ascending colon (CMS/HCC) CT ABDOMEN PELVIS W IV CONTRAST Routine 01/09/2025 12:43 PM EST Malignant neoplasm of ascending colon (CMS/HCC) CT CHEST W IV CONTRAST Routine 12:43 PM EST Malignant neoplasm of ascending colon (CMS/HCC) INSERT PERIPHERAL IV Routine 01/09/2025 12:00 PM EST Malignant neoplasm of ascending colon (CMS/HCC) from Last 3 Months Results * - AP Miscellaneous Test (01/10/2025 12:00 AM EST) Test name Spencer Robles 02/16/2025 10:13 AM EST [facility] Comment:[id number], A9 Test Result See imported document for results 02/16/2025 10:13 AM EST [facility] See Scanned Result 02/16/2025 10:13 AM EST [facility] Tissue 01/10/2025 01/10/2025 1:1 3 PM EST us Mata Smalls MD LAB REF LAB BLOOD AND FLUID OR D Final Result [facility] [address] [place] [address] * Sign[facility] Only Single Draw (01/09/2025 1:14 PM EST) [facility] TEST RESULT NEGATIVE 8:17 AM EST [facility] SIGNATERA MTM READOUT 0 MTM/ml 8:17 AM EST [facility] Comment: Please see the attached PDF for more information. Limitations Signatera is a personalized, tumor-informed test for the longitudinal detection of circulating tumor DNA (ctDNA). Interval testing is recommended for all patients. Studies have demonstrated that when ctDNA is detected (Signatera Positive) following surgery or definitive treatment, the risk for disease relapse is high without further treatment. Conversely, when ctDNA is not detected, the patient may be considered at lower risk for relapse. For those with multiple timepoints, upward trending ctDNA levels are suggestive of increasing tumor burden (1,2). For a single time point in isolation, the absolute MTM/mL value has no known clinical significance and should not be compared across patients. Test results should be interpreted in context of other clinicopathological features. ctDNA detection sensitivity may be limited due to blood collection within two weeks of surgery and while the patient is on therapy. Signatera is a quantitative test and reports in units of mean tumor molecules per ml (MTM/mL), which is comprised of three measured components (plasma volume, cell free DNA (cfDNA) concentration, and Variant Allele Frequency (VAF)). The MTM/mL number will be qualified if any measured component falls outside the analytical measurement range for that component. The analytical sensitivity is 95% at the limit of detection (0.3 MTM/mL). Results obtained are specific to the assessed time point. A negative test result does not definitively indicate the absence of cancer. This test is not designed to detect or report germline variation, nor does it infer hereditary cancer risk for the patient. Each Signatera assay is designed to a single tumor for a given patient. At this time, multiple personalized Signatera assays cannot be developed for the same patient. This test is designed to detect ctDNA from the assayed tumor only; new primary tumors will not be detected. There is a low risk that a new primary may share a variant that could interfere with the Signatera test. Testing cannot be performed in patients who are , have a history of bone marrow transplant, or history of blood transfusion within three months. This test is expected to have limited sensitivity in cancer types such as GIST, renal cell carcinomas, primary brain tumors, and lymphoma due to limited ctDNA shed. 1 Moy JOVEL, Jose Antonio YOUNGBLOODC, Mabel SANTANA, et al. Personalized circulating tumor DNA analysis as a predictive biomarker in solid tumor patients treated with pembrolizumab. Nature Cancer. 2020;1(9):873-881. 2 Ke TV, Perez N, et al., Circulating Tumor DNA in Stage III Colorectal Cancer, beyond Minimal Residual Disease Detection, toward Assessment of Adjuvant Therapy Efficacy and Clinical Behavior of Recurrences. Clin Cancer Res. 2020; 28(3):507-517. Methodology FFPE samples are reviewed by a pathologist to assess tumor content and percent tumor nuclei. Tumor DNA is extracted using Marker[employer] Bio-yenni Mag-Bind FFPE DNA/RNA kit. Whole genomic DNA is isolated from peripheral blood using QIAamp DNA Blood MiniKit to provide DNA for germline sequencing. Circulating tumor DNA (ctDNA) is extracted from plasma derived from whole blood samples collected in cell-free DNA blood tubes ([place]host[place]) using the QIASamba.meny automated or manual extraction method (Qiagen). Whole-exome sequencing is performed on tumor and peripheral blood DNA using the PICS Auditing whole-exome sequencing assay. Using a proprietary algorithm, putative, clonal variants present in the tumor but absent in the germline DNA are identified to design the customized multiplex PCR assay. The customized PCR assays are run to detect presence or absence of these variants within circulating plasma. A patient's plasma sample is considered ctDNA positive when at least two individual-specific tumor variants are detected. When fewer than two individual-specific tumor variants are observed, a negative result is issued. Pathology services and whole exome sequencing is performed at [facility]. (CLIA ID# [id number]), [facility] . [address] Disclaimer The extraction, library preparation, and sequencing for this test were performed by [facility] [address] [place] [address] (CLIA ID [id number]). The data analysis and reporting for this test were performed by [facility] [facility] [address] [place] [address] (CLIA ID [id number]). This test was developed and its performance characteristics determined by [facility]. The test has not been cleared or approved by the U.S. Food and Drug Administration (FDA). CAP accredited, ISO 17166 certified, and CLIA certified. Pathology services and whole exome sequencing for this test were performed by [facility] [address], [place] [address] (CLIA ID [id number]). 2020 [employer]. All Rights Reserved. Blood Venous blood specimen / Unknown Venipuncture / Unknown 01/09/2025 1:14 PM EST 01/09/2025 1:17 PM EST us Mata Smalls MD [facility] ORDERAB[facility] Final Result Performing Organization Address City/[facility]/ZIP Co de Phone Number [facility] [address] [place] [address], [place] * CEA, Serum (01/09/2025 1:14 PM EST) CEA, Serum 2.9 <4.0 ng/mL 01/09/2025 2:16 PM EST [facility] Blood Venous blood specimen / Unknown Venipuncture / Unknown 01/09/2025 1:14 PM EST 01/09/2025 1:40 PM EST Narrative [facility] - 01/09/2025 2:16 PM EST Normal range for smokers: < 5.5 ng/ml Normal range for non-smokers: <=4.0 ng/ml Performed by [facility] electrochemiluminescent immunoassay. Results obtained with different test methods or kits cannot be used interchangeably. us Mata Smalls MD LAB BLOOD ORDERABLES Final Res ult Performing Organization Address City/[facility]/ZIP Co de Phone Number [facility] [address] [place] [address] * CT Abdomen Pelvis w IV Contrast [...] Education provided to: Patient Assistance other than implementation architect: X1 Mata Smalls MD IV THERAPY ORDERABLES Final Re sult from Last 3 Months Insurance [employer] MEDICARE [place]ICA[place] Advance Directives * Full Code (Latest Code Status on File) Date Activated Date Inactivated Comments 07/10/2024 8:40 PM 07/15/2024 6:51 PM Question Answer Comments I have reviewed the capacity from the link above and, if needed, have updated to appropriate status: Yes Care Teams Aircraft Accessories Mechanic Relationship Specialty Start Date End Date Jose Mendoza [facility] [id number] PCP - General Internal Medicine 05/23/24
--- OUTSIDE RECORDS SUMMARY | 2025-02-21 09:27 | XMS_ITS | Encounter Summary ---
Author Organization [facility] Address [address] [place] [address] Care Team Providers Care Inspector Heating And Refrigeration Name Role Phone Jose Mendoza MD Primary Care Provider [phone] Reason for Visit * Reason Onset Date Comments Labs 02/09/2025 [facility] Encounter Details Date Type Department Care Team ([facility] st Contact Info) Description 02/09/2025 Telephone [facility] [address] [place] [address] Mata Smalls MD [address] [facility] [address] [place] [address] Labs ([facility] ) Social History [...] any time in the past 12 m [facility], were you homeless or living in a detention (including now)? No 07/11/2024 Utilities Answer Date [...] ordered per provider. Provided pt with number [phone] for mobile phlebotomy scheduling. Pt verbalized understanding. Nofurther questions or concerns. documented in this encounter Plan of Treatment Upcoming Encounters Date Type Department Care Team (Latest Contact Info) Description 07/10/2025 12:00 PM EDT Appointment [facility] [address] [place] [address] 07/10/2025 2:30 PM EDT Office Visit [facility] [address] [place] [address] Mata Smalls MD [address] [facility] [address] [place] [address] 07/10/2025 2:30 PM EDT Clinical Support [facility] [address] [place] [phone] documented as of this encounter Visit Diagnoses Not on filedocumented in this encounter Additional Health Concerns Assessment Noted Time A fall risk assessment has been complete d for the patient 01/09/2025 2:50 PM EST A Body Mass Index follow-up plan has been documented for the patient 01/19/2025 11:45 AM EST documented as of this encounter Care Teams Inspector Heating And Refrigeration Relationship Specialty Start Date End Date Jose Mendoza MD [facility] [address] [address] PCP - General Internal Medicine 05/23/24 documented as of this encounter
--- OUTSIDE RECORDS SUMMARY | 2025-02-21 09:27 | XMS_ITS | Encounter Summary ---
Author Organization [facility] Address [address] [place] [address] Care Team Providers Care Cloth Finishing Range Operator Name Role Phone Jose Mendoza MD Primary Care Provider [phone] Encounter Details Date Type Department Care Team (Late st Contact Info) Description 02/13/2025 Results Follow-Up [facility] [address] [place] [address] Yahaira Simpson MA Social History Tobacco Use Types Packs/Day Years [...] encounter Miscellaneous Notes * Telephone Encounter - Yahaira Simpson MA - 02/13/2025 3:40 PM EST Spoke to patient, patient understood. * Telephone Encounter - Yahaira Simpson MA - 02/13/2025 3:40 PM EST ----- Message from Yahaira Marsh sent at 02/13/2025 3:25 PM EST ----- ----- Message ----- From: Ayesha Galo APRN Sent: 02/13/2025 3:07 PM EST To: Yahaira Simpson MA Please call her and let her know that her BNP is mildly elevated 471. The BNP is the lab that checks for congestive heart failure. Please tell her to stay on her furosemide and spironolactone. Her kidney function is stable creatinine 1.2 BUN 22 and GFR 43. Sodium and potassium are normal. ----- Message ----- From: Anjelica Kendrick Incoming Sent: 02/13/2025 1:15 PM EST To: Ayesha Galo APRN documented in this encounter Plan of Treatment Upcoming Encounters Date Type Department Care Team (Late st Contact Info) Description 02/27/2025 12:30 PM EST Ancillary Procedure [facility] [address] [address] 03/14/2025 1:30 PM EST Office Visit [facility] [address] [address] Nancy Giron APRN [address] [facility] [address] [address] 06/04/2025 10:45 AM EDT Office Visit [facility] [address] [address] Reanna Krishnamurthy MD [address] [place] [address] 06/04/2025 10:45 AM EDT Clinical Support No Requirements [facility] [address] [place] [address] documented as of this encounter Visit Diagnoses Not on filedocumented in this encounter Care Teams Cloth Finishing Range Operator Relationship Specialty Start Date End Date Jose Mendoza MD [address] [facility] [address] [place] [address] PCP - General Adolescent Medicine 08/03/22 documented as of this encounter
--- OUTSIDE RECORDS SUMMARY | 2025-02-21 09:27 | XMS_ITS | Encounter Summary ---
Author Organization [facility] Address [address] [place] [address] Care Team Providers Care Shear Grinder Operator Helper Name Role Phone Jose Mendoza MD Primary Care Provider [phone] Encounter Details Date Type Department Care Team [...] 12:30 PM EST Ancillary Procedure [facility] [address] [place] [address] [place] [address] 03/14/2025 1:30 PM EST Office Visit [facility] [address] [place] [address] [place] [address] [place] [address] 06/04/2025 10:45 AM EDT Office Visit [facility] [address] [place] [address] [place] [address] Reanna Krishnamurthy MD [address] [place] [address] [place] [address] 06/04/2025 10:45 AM EDT Clinical Support No Requirements [facility] [address] [place] [address] [place] [address] documented as of this encounter Visit Diagnoses Not on filedocumented in this encounter Care Teams Shear Grinder Operator Helper Relationship Specialty Start Date End Date Jose Mendoza MD [address] [place] [facility] [address] [place] [address] PCP - General Adolescent Medicine 08/03/22 documented as of this encounter
--- OUTSIDE RECORDS SUMMARY | 2025-02-21 09:27 | XMS_ITS | Encounter Summary ---
Author Organization [facility] Address [address] [place] [address] Care Team Providers Care Cardboard Inserter Name Role Phone Jose Mendoza MD Primary Care Provider [phone] Reason for Visit * Reason Comments Distress Screen Follow-up Encounter Details Date Type Department Care Team (Late st Contact Info) Description 01/09/2025 Social Work [facility] [address] [place] [address] Jhon Naqvi [address] Social History Tobacco Use Types Packs/Day Years [...] any time in the past 12 m [facility], were you homeless or living in a custodial (including now)? No 07/11/2024 Utilities Answer Date [...] as of this encounter Mental Status * Psych Onc Group Question Answer Entry Date Author Intervention Level 3 01/10/2025 7: 55 AM Jhon Brown Units (1 unit = 15 minutes) 2 01/10/2025 7:55 AM Jhon Brown Disease Status Established Patient 01/10/2025 7 :55 AM Jhon Brown Clinic Location MULTI 01/10/2025 7:55 AM Jhon Brown Disease Type Colon & Rectum 01/10/2025 7:55 AM Jhon Brown Encounter Type Distress Follow Up - In Person 01/10/2025 7:55 AM Jhon Brown Education Provided Emotional/Physical Education & Materials;Financial Support/Aid;Lodging;Psych -Onc Services;Peer Support;Transportation 01/10/2025 7:55 AM Jhon Brown documented in this encounter Miscellaneous Notes * Clinician Note - Jhon Naqvi - 01/09/2025 11:59 PM EST Encounter Type: Distress Follow Up - In Person Disease Status: Established Patient Clinic Location: [facility] Disease Type: Colon & Rectum Education Provided: Emotional/Physical Education & Materials, Financial Support/Aid, Lodging, Psych-Onc Services, Peer Support, Transportation Intervention Level: 3 Units (1 unit = 15 minutes): 2 Narrative: SOFT BOARDER met with patient in clinic exam room during their regularly scheduled visit in regards to recent distress screen score. SOFT BOARDER introduced himself and the nature of the visit, and inquiredabout patient's needs and wellbeing. Pt was present with her and daughter and stay during this visit. Pt reported she was doing well. SOFT BOARDER provided education on psych-oncology services, including emotional and practical support, as well as dietitian and financial resources. Patient denied any needs at this time . SOFT BOARDER provided the patient with his contact information for future reference and encouraged patient to follow up as needed. SOFT BOARDER will be available for future resources and support. Bereket Naqvi International Bank Manager , RENATO, SOFT BOARDER Psych-Oncology Services [facility] documented in this encounter Plan of Treatment Upcoming Encounters Date Type Department Care Team (Latest Contact Info) Description 07/10/2025 12:00 PM EDT Appointment [facility] [address] [place] [address] 07/10/2025 2:30 PM EDT Office Visit [facility] Multidisciplinary Oncology Clinic [address] [place] [address] Mata Smalls MD [address] [place] [address] 07/10/2025 2:30 PM EDT Clinical Support [facility] Multidisciplinary Oncology Clinic [address] [place] [address] documented as of this encounter Visit Diagnoses Not on filedocumented in this encounter Additional Health Concerns Assessment Noted Time A fall risk assessment has been complete d for the patient 01/09/2025 2:50 PM EST A Body Mass Index follow-up plan has been documented for the patient 01/19/2025 11:45 AM EST documented as of this encounter Care Teams Cardboard Inserter Relationship Specialty Start Date End Date Jose Mendoza MD [facility] [address] PCP - General Internal Medicine 05/23/24 documented as of this encounter
--- OUTSIDE RECORDS SUMMARY | 2025-02-21 09:27 | XMS_ITS | Encounter Summary ---
Author Organization [facility] Address [address] [place] [address] Care Team Providers Care Us Administrative Law Judge Name Role Phone Jose Mendoza MD Primary Care Provider [phone] Encounter Details Date Type Department Care Team [...] any time in the past 12 m [facility], were you homeless or living in a half-way (including now)? No 07/11/2024 Utilities Answer Date [...] as of this encounter Functional Status * Communicable Disease Screening Question Answer Date of Assessment Author Have you been in contact wit h someone who was sick? No / Unsure 01/09/2025 11:38 AM Shanna Espana Do you have any of the following new or worsening symptoms? None of these 01/09/2025 11:38 AM Kateryna Espana * Travel Screening Question Answer Date of Assessment Author Have you traveled intern[place] or domestically in the last month? No 01/09/2025 11:38 AM Kateryna Cole documented as of this encounter Mental Status * Communicable Disease Screening Question Answer Entry Date Author Have you been in contact wit h someone who was sick? No / Unsure 01/09/2025 11:38 AM Shanna Espana Do you have any of the following new or worsening symptoms? None of these 01/09/2025 11:38 AM Kateryna Espana * Travel Screening Question Answer Entry Date Author Have you traveled internatio jim[place] or domestically in the last month? No 01/09/2025 11:38 AM EST Kateryna Spears documented in this encounter Plan of Treatment Upcoming Encounters Date Type Department Care Team (Latest Contact Info) Description 07/10/2025 12:00 PM EDT Appointment [facility] [address] [place] [address] 07/10/2025 2:30 PM EDT Office Visit [facility] [address] [place] [address] Mata Smalls MD [address] [facility] [address] [place] [address] 07/10/2025 2:30 PM EDT Clinical Support [facility] Multidisciplinary Oncology Clinic [address] [place] [address] documented as of this encounter Visit Diagnoses Not on filedocumented in this encounter Additional Health Concerns Assessment Noted Time A fall risk assessment has been complete d for the patient 01/09/2025 2:50 PM EST A Body Mass Index follow-up plan has been documented for the patient 01/19/2025 11:45 AM EST documented as of this encounter Care Teams Us Administrative Law Judge Relationship Specialty Start Date End Date Jose Mendoza MD [facility] [id number] PCP - General Internal Medicine 05/23/24 documented as of this encounter
--- OUTSIDE RECORDS SUMMARY | 2025-02-21 09:27 | XMS_ITS | Encounter Summary ---
Author Organization Healthcare Address [address] [place] [address] Care Team Providers Care Guest Relations Officer Name Role Phone Jose Mendoza MD Primary Care Provider Encounter Details Date Type Department Care Team (Late st Contact Info) Description 01/10/2025 Lab Requisition [facility] [address] [place] [address] Mata Smalls MD [address] [place] [id number] Malignant neoplasm of colon, unspecified (CMS/HCC) Social [...] any time in the past 12 m [facility], were you homeless or living in a nursing home (including now)? No 07/11/2024 Utilities Answer [...] Info) Description 07/10/2025 12:00 PM EDT Appointment [facility] [address] [place] [phone] 07/10/2025 2:30 PM EDT Office Visit [facility] Multidisciplinary Oncology Clinic [address] [place] [address] Mata Smalls MD [address] [place] [phone] 07/10/2025 2:30 PM EDT Clinical Support [facility] Multidisciplinary Oncology Clinic [address] [place] [address] documented as of this encounter Procedures Procedure Name Priority Date/Time Associated Diagnosis Comments AP MISCELLANEOUS LAB TEST (SO) Routine 01/10/2025 12:00 AM EST Malignant neoplasm of colon, unspecified (CMS/HCC) documented in this encounter Results * - AP Miscellaneous Test (01/10/2025 12:00 AM EST) Test name Spencer Robles 02/16/2025 10:13 AM EST [facility] Comment:[id number], A9 Test Result See imported document for results 02/16/2025 10:13 AM EST [facility] See Scanned Result 02/16/2025 10:13 AM EST [facility] Tissue 01/10/2025 01/10/2025 1:1 3 PM EST us Mata Smalls MD LAB REF LAB BLOOD AND FLUID OR D Final Result [facility] [address] [place] [address] documented in this encounter Visit Diagnoses Diagnosis Malignant neoplasm of colon, unspecified (CMS/HCC) documented in this encounter Additional Health Concerns Assessment Noted Time A fall risk assessment has been complete d for the patient 01/09/2025 2:50 PM EST A Body Mass Index follow-up plan has been documented for the patient 01/19/2025 11:45 AM EST documented as of this encounter Care Teams Guest Relations Officer Relationship Specialty Start Date End Date Jose Mendoza MD [facility] [id number] PCP - General Internal Medicine 05/23/24 documented as of this encounter
--- OUTSIDE RECORDS SUMMARY | 2025-02-21 09:27 | XMS_ITS | Clinical Summary ---
[facility] Organization [facility] Address [address] [place] [address] Care Team Providers Care Airplane Pilot Name Role Phone Jose Mendoza MD Primary Care Provider [phone] Allergies Active Allergy Reactions Criticality Noted Date [...] (congestive heart failure),Beasley ry artery disease involving chevak coronary artery of chevak heart without angina pectoris Take 1 tablet [...] sound GI in nature. Orders: Case Request Bundle Person: Left Heart Cath Dyspnea on exertion 01/31/2024 [...] diuretics. Plans to get legs wrapped at [facility]. Assessment & Plan (08/18/2024 4:01 PM [...] diuretics. Plans to get legs wrapped at [facility]. Abdominal pain 11/18/2023 Assessment & Plan (12/08/2023 11:41 PM EDT): Nuclear stress test and Abd CT reviewed. Has GI follow-up at [facility] 12/28/23. Assessment & Plan (11/18/2023 3:01 [...] EDT): Patient had recent ER visit at [facility]. She was noted to have a [...] pacemaker check. Coronary artery disease invo lving chevak coronary artery of chevak heart without angina pectoris 04/05/2023 Assessment & [...] failure symptoms as well. 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; Dyspnea on exertion 02/08/2025 Travel 12/04/2024 10:00 AM EDT Office Visit [facility] [address] [address] Reanna Krishnamurthy MD Swelling of lower extremity (Primary Dx); Presence of cardiac pacemaker; 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; Pre-operative cardiovascular examination 12/04/2024 Travel from Last 3 Months Family History [...] Description 02/27/2025 12:30 PM EST Ancillary Procedure [facility] [address] [address] 03/14/2025 1:30 PM EST Office Visit [facility] [address] [address] Nancy Giron APRN [address] [place] [address] 06/04/2025 10:45 AM EDT Office Visit [facility] [address] [address] Reanna Krishnamurthy MD [address] [place] [address] 06/04/2025 10:45 AM EDT Clinical Support No Requirements [facility] [address] [address] Health Maintenance Due [...] history exists Medical Devices Implanted Type Area Precision Lens Polisher Device Identifier Shelf Expiration Date Model / Serial / Lot Pacemaker Pacemaker Procedures Procedure Name Priority Date/Time Associated Diagnosis Comments CBC AND DIFFERENTIAL Routine 02/13/2025 Chronic diastolic heart failure 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 Dyspnea on exertion COMPREHENSIVE METABOLIC PANEL Routine 02/13/2025 Chronic diastolic heart failure 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
[address] [place] [address], * CBC & Differential (02/13/2025) Blood us Ayesha W Seivers [employer] [employer] BLOOD ORDERABLES Final R esult [facility]
[address] [place] [address], [place] [phone] * Magnesium (02/13/2025) Blood us Ayesha W Seivers [employer] [employer] BLOOD ORDERABLES Final R esult Performing Organization Address City/[facility]/ZIP Co de Phone Number [facility]
[address] [place] [address], [place] [phone] * Comprehensive Metabolic Panel (02/13/2025) Blood us Ayesha Simpler Seivers [facility] BLOOD ORDERABLES Final R esult Performing Organization Address City/[facility]/ZIP Co de Phone Number [facility]
[address] [place] [address], [place] [phone] from Last 3 Months Insurance MEDICAID [employer] MEDICARE ADVANTAGE FORMERLY [facility] PPO Care Teams Airplane Pilot Relationship Specialty Start Date End Date Jose Mendoza MD [address] [place] [address] [place] [address] PCP - General Adolescent Medicine 08/03/22
--- OUTSIDE RECORDS SUMMARY | 2025-02-21 09:27 | XMS_ITS | Encounter Summary ---
Author Organization Healthcare Address [address] [place] [address] Care Team Providers Care Assembler Metal Building Name Role Phone Jose Mendoza MD Primary Care Provider [phone] Encounter Details Date Type Department Care Team (Late st Contact Info) Description 06/15/2024 Lab Requisition [facility] [address] [place] [address] Mata Smalls MD [address] [address] Anemia, unspecified Social History Tobacco [...] 07/10/2025 12:00 PM EDT Appointment [facility] [address] [place] [phone] 07/10/2025 2:30 PM EDT Office Visit [facility] Multidisciplinary Oncology Clinic [address] [place] [address] Mata Smalls MD [address] [facility] [address] [place] [address] (work) 07/10/2025 2:30 PM EDT Clinical Support [facility] Multidisciplinary Oncology Clinic [address] [place] [address] documented as of this encounter Procedures Procedure Name Priority Date/Time Associated Diagnosis Comments SURGICAL PATHOLOGY CONSULT Routine 06/15/2024 1:25 PM EDT Anemia, unspecified documented in this encounter Results * Surgical Pathology Consult (06/15/2024 1:25 PM EDT) Case Report Sugical Pathology Consult Case: [id number] Authorizing Provider: Mata Smalls MD Collected: 06/15/2024 1325 Ordering Location: [facility] Lab Received: 06/15/2024 1326 Pathologist: Mick Dash MD Specimen: Colon, [id number] 2:47 PM EDT [facility] Final Diagnosis (OUTSIDE CASE: [id number], PARTS C&D; COLLECTED ON 06/07/2024): COLON, HEPATIC FLEXURE, BIOPSY (C): - ADENOCARCINOMA, POORLY DIFFERENTIATED (SEE COMMENT) SIGMOID COLON, POLYP, BIOPSY (D): - ADENOCARCINOMA, POORLY DIFFERENTIATED (SEE COMMENT) 2:47 PM EDT [facility] at 1447 EDT Comment The clinical [...] tumor with enteric differentiation. 2:47 PM EDT [facility] Clinical Information D64.9 - Anemia, unspecified [ICD-10-CM] 2:47 PM EDT [facility] Special and Immunohistochemical Stains Immunohistochemica l stains that have been performed and interpreted by the outside institution (not reviewed here), have been reported as follows: Positive: CDX2, SATB2 (focal, weak) Negative: CK7, CK20, SYNAPTOPHYSIN, CD56 MMR proteins; IHC interpretation (per report) Loss of nuclear expression of MLH1 and PMS2 5 2:47 PM EDT [facility] Gross Description A. [id number] Received along with a corresponding pathology report from [facility]ology [facility] Cytology Laboratory are 2 slides labeled outside case: [id number] collected on 06/07/2024. 2:47 PM EDT [facility] Note: A resident was involved in the service. I attest I examined the relevant preparations for the specimens and confirmed the diagnosis or interpretation. 2:47 PM EDT [facility] Tissue Colon structure / Unknown 06/15/2024 1:25 PM EDT 06/15/2024 1:26 PM EDT us Mata Smalls MD LAB PATHOLOGY ORDERABLES Final Result [facility] [address] [place] [address] documented in this encounter Visit Diagnoses Diagnosis Anemia, unspecified documented in this encounter Care Teams Assembler Metal Building Relationship Specialty Start Date End Date Jose Mendoza MD [facility] [address] PCP - General Internal Medicine 05/23/24 documented as of this encounter
[2025-02-21] MEDS: ALBUTEROL 0.083% 2.5 MG/3 ML NEB IH (10:10)
--- NOTE | 2025-02-21 10:11 | PC.NURSE ---
PFT attempted. Pt unable to complete the DLCO attempted 2 times. Pre and Post Spirometry completed to the best of the ability of the patient. Albuterol 0.083% given via HHN, per written protocol, Pt tolerated tx well. 6 Minute Walk Test not attempted, Pt is in a wheelchair and states she is unable to take more than a few steps at a time. SPO2 97% on room air with Pt sitting in wheelchair.
== END 2025-02-21 23:59 | disposition home or self-care (01) ==
LOC: RT 09:23
PROVIDERS: PCP Internal Medicine Adolescent Medicine; Visit Provider Internal Medicine Pulmonary Disease
DX: R06.09 Other forms of dyspnea (principal)
CPT/HCPCS: 94010